=== PATIENT | female | born 1950 | race Caucasian/White ===

== ENCOUNTER → 2018-08-26 10:21 | Outpatient (CLI) | payer OTHER, SELFPAY ==
[2018-08-26 11:17] LABS: Add Manual Diff / Slide Review NO; Basophils Percent Auto 0.7 % (0-2); Hematocrit 38.8 % (36-46); Hemoglobin 13.2 g/dL (12.0-16.0); Lymphocytes Percent Auto 25.4 % (25-40); Mean Corpuscular HGB Conc 34.1 % (30-36); Mean Corpuscular Hemoglobin 28.7 PG (26-34); Mean Corpuscular Volume 84.3 fL (80-100); Monocytes Percent Auto 5.9 % (3-14); Neutrophils Absolute Auto 5400 /uL (3000-5900); Platelet Count 261 X10^3/uL (150-400); Red Cell Distribution Width 13.7 % (11.6-14.8); White Blood Cell Count 8.3 X10^3/uL (4.5-11.0)
[2018-08-26 11:25] LABS: Hemoglobin A1C% w Est Avg Glu 9.8 % (4.0-6.0)
[2018-08-26 11:42] LABS: Creatinine Urine Random 191.5 mg/dL
[2018-08-26 11:46] LABS: Alanine Aminotransferase 31 IU/L (9-52); Albumin 4.1 g/dL (3.5-5.0); Albumin Globulin Ratio 1.2 (1.0-2.8); Alkaline Phosphatase 56 U/L (38-126); Aspartate Aminotransferase 22 IU/L (14-36); BUN Creatinine Ratio 22.5 (6-22); Bilirubin Total 0.4 mg/dL (0.2-1.3); Blood Urea Nitrogen 18 mg/dL (7-17); Calcium 9.3 mg/dL (8.4-10.2); Carbon Dioxide 29 mmol/L (22-32); Chloride 104 mmol/L (98-107); Cholesterol 180 mg/dL (140-199); Estimated Glomerular Filt Rate > 60.0 mL/min (>60); Globulin 3.4 g/dL (1.7-4.1); Glucose 206 mg/dL (80-110); HDL Cholesterol 44 mg/dL (40-60); HEMOLYSIS < 15 (0-50); LDL Cholesterol Calculated 112 mg/dL (<100); Potassium 5.1 mmol/L (3.4-5.1); Sodium 142 mmol/L (137-145); Total Protein 7.5 g/dL (6.3-8.2); Triglycerides 119 mg/dL (35-150)
[2018-08-26 11:48] LABS: Microalbumi Creatinin Ratio Ur 23.4 ug/mg CR (<30); Microalbumin Urine Random 4.5 mg/dL (0-1.6)
[2018-08-26 12:14] LABS: Thyroid Stimulating Hormone 1.46 uIU/mL (0.47-4.68)
== END ==
PROVIDERS: Family Provider Family Medicine; PCP Family Medicine; Visit Provider Family Medicine
DX: E10.9 Type 1 diabetes mellitus without complications (principal); E78.5 Hyperlipidemia, unspecified; I10 Essential (primary) hypertension
CPT/HCPCS: 36415; 80053; 80061; 82043; 82570; 83036; 84443; 85025

== ENCOUNTER → 2018-08-29 09:50 | Outpatient (CLI) | payer OTHER, MEDICARE, SELFPAY ==
--- NOTE | 2018-08-29 09:51 | DI.MG.S_ITS ---
BILATERAL DIGITAL SCREENING MAMMOGRAM 3D/2D WITH CAD: 08/29/2018 CLINICAL: Routine screening. Family history of breast cancer. Comparison is made to exams dated: 05/21/2017 mammogram, 05/18/2015 mammogram, and 11/30/2014 mammogram - [facility]. There are scattered fibroglandular elements in both breasts. Current study was also evaluated with a Computer Aided Detection (CAD) system. There are a grouped calcifications in the left breast at 2 o'clock middle depth. No other significant masses, calcifications, or other findings are seen in either breast. IMPRESSION: INCOMPLETE: NEEDS ADDITIONAL IMAGING EVALUATION The grouped calcifications in the left breast are indeterminate. Spot magnification views are recommended. This exam was interpreted at Station ID: [id number]. NOTE: For mammograms, a report in lay terms will be sent to the patient. Approximately 15% of breast malignancies will not be visualized mammographically. In the management of a palpable breast mass, a negative mammogram must not discourage biopsy of a clinically suspicious lesion. Electronically Signed By: Eileen gongora/trixie:08/29/2018 13:14:50 letter sent: Additional Imaging Needed ACR BI-RADS Category 0: Incomplete 3340F
== END ==
PROVIDERS: Family Provider Family Medicine; PCP Family Medicine; Visit Provider Family Medicine
DX: Z12.31 Encounter for screening mammogram for malignant neoplasm of breast (principal); Z80.3 Family history of malignant neoplasm of breast; E11.9 Type 2 diabetes mellitus without complications
CPT/HCPCS: 77063; 77067

== ENCOUNTER 2018-09-14 11:50 | Emergency (ER) | payer OTHER, SELFPAY ==
[2018-09-14 12:03] VITALS: BP 196/99; PULSE 86; RESP 18; TEMP 36.6; O2SAT 96
--- NOTE | 2018-09-14 12:06 | ED.CHESTPAIN ---
HPI - Chest Pain General Chief Complaint: Chest Pain Stated Complaint: CHEST PAIN Time Seen by Provider: 09/14/18 12:06 Source: patient and family () Mode of arrival: ambulatory Limitations: no limitations History of Present Illness HPI narrative: This is a 68-year-old female who comes to the emergency department with complaint of chest pain. Patient states chest pain started 3 days ago. Patient states it has been constant since some. She came in because it is not improving. She has not been sweaty today, she has been having some shortness of breath with exertion. No nausea or vomiting. No other GI or urinary symptoms. Patient does have a history of hypertension and ngi-sorkuiy-koijmpifz diabetes. Patient takes, metformin and glyburide. She is not on any blood thinner she does not normally take an aspirin. She has not had any aspirin today. She does not have any known coronary artery disease and has not had prior catheterization or stress test. Related Data Previous Rx's Medication Instructions Recorded fluconazole [Diflucan] 150 mg PO QDAY #1 tab 07/04/16 metoprolol tartrate 25 mg PO BID #180 tab 07/10/17 triamcinolone acetonide 0.1 % 1 applictn TOPICAL BID #80 gram 07/08/18 topical cream atenolol 25 mg PO BID #180 tab 07/09/18 glimepiride 1 mg tablet 3 mg PO [facility] #270 tab 08/27/18 metformin 500 mg tablet 1,000 mg PO BID #360 tab 08/27/18 simvastatin 5 mg tablet 5 mg PO BEDTIME #90 tab 08/27/18 Allergies Allergy/AdvReac Type Severity Reaction Status Date / Time Sulfa (Sulfonamide Allergy Mild RASH Unverified 08/27/18 09:03 Antibiotics) Review of Systems Review of Systems All systems reviewed & are unremarkable except as noted in HPI and below Cardiovascular Reports chest pain, Reports chest pain at rest, Denies diaphoresis, Denies syncope and Reports dyspnea Respiratory Denies cough and Reports dyspnea Gastrointestinal Gastrointestinal: Denies abdominal pain, Denies nausea and Denies vomiting Genitourinary Denies difficulty voiding Neurologic Denies syncope [facility] Medical History Diabetes mellitus (Chronic ~2011) Hypertension (Chronic ~2011) Knee osteoarthritis (Chronic) Osteopenia (Chronic 08/06/14) Rheumatoid arthritis (Chronic) Colon polyps (Resolved 08/31/14) Surgical History Anesthesia (Resolved) History of colonoscopy with polypectomy (Resolved 08/31/14) History of knee replacement (Resolved) History of knee replacement (Resolved) History of left cataract surgery (Resolved 03/23/15) History of right cataract surgery (Resolved 04/06/15) Status post delivery (Resolved 12/21/78) Family History Brother Drowning Father Heart disease Mother Diabetes mellitus Sister Bone cancer Sister Bone cancer Social History Smoking Status: Never smoker Exam Initial Vital Signs Initial Vital Signs: Vital Signs Temperature 97.9 F 09/14/18 12:03 Pulse Rate 86 09/14/18 12:03 Respiratory Rate 18 09/14/18 12:03 Blood Pressure 196/99 H 09/14/18 12:03 Pulse Oximetry 96 09/14/18 12:03 GENERAL: Alert and oriented x three, obese, well-appearing female in mild distress. Patient is not diaphoretic. HEENT: Head normocephalic, atraumatic, EOMI, pupils reactive, face symmetric, moist mucous membranes NECK: Supple, full range of motion CARDIOVASCULAR: Regular rate and rhythm without murmurs, rubs or gallops. RESPIRATORY: Breath sounds equal bilaterally, no wheezes rales or rhonchi. ABDOMEN: Soft, nontender. Normoactive bowel sounds all 4 quadrants. No guarding or rebound, rigidity, no mass, no bruit or pulsatile mass. : No CVA tenderness EXTREMITIES: Normal range of motion, no clubbing or edema. 2+ pulses lower extremities. Neurovascularly intact NEUROLOGICAL: Cranial nerves II through XII grossly intact. Moving all extremities SKIN: Warm, dry, no petechiae, no rashes or lesions. Course Orders Ordered: ED Orders 09/14/18 12:00 EKG-12 Lead Stat 09/14/18 12:10 Complete Blood Count AUTO DIFF Stat Comprehensive Metabolic Panel Stat Lipase Stat Troponin & CK Cardiac Panel Stat Discontinued Medications Aspirin (Aspirin Chew) 324 mg PO NOW ONE Stop: 09/14/18 12:07 Last Admin: 09/14/18 12:11 Dose: 324 mg Heparin Sodium (Porcine) (Heparin) 5,000 unit IV NOW ONE Stop: 09/14/18 12:11 Last Admin: 09/14/18 12:12 Dose: 5,000 unit Sodium Chloride (Normal Saline 0.9%) 1,000 mls @ 150 mls/hr IV CONT RENY Morphine Sulfate (Morphine) 4 mg IV NOW ONE Stop: 09/14/18 12:24 Last Admin: 09/14/18 12:24 Dose: 4 mg Nitroglycerin (Nitrostat) 0.4 mg SL [id number] PRN PRN Reason: Chest Pain Last Admin: 09/14/18 12:12 Dose: 0.4 mg Vital Signs - 8 hr 09/14/18 12:03 09/14/18 12:10 09/14/18 12:25 Temperature 97.9 F Pulse Rate 86 90 Respiratory Rate 18 18 Blood Pressure [Left Arm] 196/99 H 164/84 H 155/91 H Pulse Oximetry 96 97 MDM - Chest Pain Lab Data Attestation: I reviewed the patient's lab results. Result diagrams: 09/14/18 12:10 09/14/18 12:10 Lab Results 09/14/18 09/14/18 Range/Units 12:10 12:10 WBC 16.8 H (4.5-11.0) X10^3/uL RBC 5.03 (4.0-5.2) X10^6/uL Hgb 14.6 (12.0-16.0) g/dL Hct 42.1 (36-46) % MCV 83.7 (80-100) fL MCH 29.0 (26-34) PG MCHC 34.7 (30-36) % RDW 14.1 (11.6-14.8) % Plt Count 333 (150-400) X10^3/uL Neut % (Auto) 81.3 H (50-75) % Lymph % (Auto) 10.7 L (25-40) % [place] % (Auto) 6.3 (3-14) % Eos % (Auto) 0.5 L (2-4) % Baso % (Auto) 1.2 (0-2) % Neut # (Auto) 34980 H (4188-6010) /uL Sodium 139 (137-145) mmol/L Potassium 4.3 (3.4-5.1) mmol/L Chloride 99 (98-107) mmol/L Carbon Dioxide 26 (22-32) mmol/L BUN 12 (7-17) mg/dL Creatinine 0.70 (0.52-1.04) mg/dL Estimated GFR > 60.0 (>60) mL/min BUN/Creatinine Ratio 17.1 (6-22) Glucose 285 H (80-110) mg/dL Calcium 10.0 (8.4-10.2) mg/dL Total Bilirubin 0.9 (0.2-1.3) mg/dL AST 57 H (14-36) IU/L ALT 33 (9-52) IU/L Alkaline Phosphatase 75 (38-126) U/L Total Creatine Kinase 308 H (30-135) U/L CK-MB (CK-2) 21.50 H (<2.37) ng/mL CK-MB (CK-2) Rel Index 7.0 H* (1.5-5.0) % Troponin I 6.140 H* (0.01-0.034) ng/mL Total Protein 8.5 H (6.3-8.2) g/dL Albumin 4.6 (3.5-5.0) g/dL Globulin 3.9 (1.7-4.1) g/dL Albumin/Globulin Ratio 1.2 (1.0-2.8) Lipase 65 (23-300) U/L ECG Data Attestation: I personally reviewed and interpreted this ECG as follows: Interpretation: Sinus rhythm rate of 85 FL 159 QRS 99 QTC of 400. Patient has ST elevation in anterolateral leads V2 3 4 in 5 with 2-3 mm. Patient also has some inversion in aVL more flattening in 1. Patient has about 1 mm in 3 and AVF. No prior EKG's. MDM Narrative Medical decision making narrative: Patient EKG was reviewed and patient was evaluated. Activated as ST elevated DC. Transfer to [facility] spoke with Dr. Stapleton who accepts the patient for transfer. EKG was sent head of the patient. Patient was given aspirin 324 mg, heparin bolus 5000 units, nitro sublingual which did not help her chest pain and did give her headache. Her blood pressure is quite elevated. CXR not obtained prior to transport. Lab results faxed to [facility] after transportation. Critical Care Time Critical Care Time: Yes Total Critical Care Time: 30 Attestation: The high probability of a clinically significant, sudden or life threatening deterioration of the cardiac system(s) required my full and direct attention, intervention and personal management. The aggregate critical care time was minutes. This time is in addition to time spent performing reported procedures but includes the following: xData Review and interpretation x Patient assessment and monitoring of vital signs x Documentation x Medication orders and management Discharge Plan Departure Patient Disposition: [facility] Clinical Impression: ST elevation (STEMI) myocardial infarction Discharge Date/Time: 09/14/18 12:30 Interventions: ED Discharge Assessment Last Done: 09/14/18 12:36 Prescriptions: No Action fluconazole [Diflucan] 150 MG tablet 150 mg PO QDAY Qty: 1 RF: 0 metoprolol tartrate 25 MG tablet 25 mg PO BID Qty: 180 RF: 3 triamcinolone acetonide 0.1 % cream 1 applictn Topical BID Qty: 80 RF: 2 atenolol 25 mg tablet 25 mg PO BID Qty: 180 RF: 2 glimepiride [Amaryl] 1 mg tablet 3 mg PO [facility] Qty: 270 RF: 3 metformin [Glucophage] 500 mg tablet 1,000 mg PO BID Qty: 360 RF: 3 simvastatin 5 mg tablet 5 mg PO BEDTIME Qty: 90 RF: 3 Referrals: Todd West MD [Primary Care Provider] -
[2018-09-14 12:10] VITALS: BP 164/84; PULSE 90; RESP 18; O2SAT 97
[2018-09-14] MEDS: ASPIRIN 81 MG TAB 324 MG PO (12:11)
[2018-09-14] MEDS: NITROGLYCERIN 0.4 MG SL TAB SL (12:12)
[2018-09-14] MEDS: HEPARIN 5,000 UNIT/ML VIAL 5000 UNIT IV (12:12)
--- NOTE | 2018-09-14 12:16 | PC.NURSE ---
sinus rhythm with st elevations
--- NOTE | 2018-09-14 12:18 | ED_ITS ---
HPI - Chest Pain General Chief Complaint: Chest Pain Stated Complaint: CHEST PAIN Time Seen by Provider: 09/14/18 12:06 Source: patient and family () Mode of arrival: ambulatory Limitations: no limitations History of Present Illness HPI narrative: This is a 68-year-old female who comes to the emergency department with complaint of chest pain. Patient states chest pain started 3 days ago. Patient states it has been constant since some. She came in because it is not improving. She has not been sweaty today, she has been having some shortness of breath with exertion. No nausea or vomiting. No other GI or urinary symptoms. Patient does have a history of hypertension and non-insulin- dependent diabetes. Patient takes, metformin and glyburide. She is not on any blood thinner she does not normally take an aspirin. She has not had any aspirin today. She does not have any known coronary artery disease and has not had prior catheterization or stress test. Related Data Previous Rx's Medication Instructions Recorded fluconazole [Diflucan] 150 mg PO QDAY #1 tab 07/04/16 metoprolol tartrate 25 mg PO BID #180 tab 07/10/17 triamcinolone acetonide 0.1 % 1 applictn TOPICAL BID #80 gram 07/08/18 topical cream atenolol 25 mg PO BID #180 tab 07/09/18 glimepiride 1 mg tablet 3 mg PO [facility] #270 tab 08/27/18 metformin 500 mg tablet 1,000 mg PO BID #360 tab 08/27/18 simvastatin 5 mg tablet 5 mg PO BEDTIME #90 tab 08/27/18 Allergies Allergy/AdvReac Type Severity Reaction Status Date / Time Sulfa (Sulfonamide Allergy Mild RASH Unverified 08/27/18 09:03 Antibiotics) Review of Systems Review of Systems All systems reviewed & are unremarkable except as noted in HPI and below Cardiovascular Reports chest pain, Reports chest pain at rest, Denies diaphoresis, Denies syncope and Reports dyspnea Respiratory Denies cough and Reports dyspnea Gastrointestinal Gastrointestinal: Denies abdominal pain, Denies nausea and Denies vomiting Genitourinary Denies difficulty voiding Neurologic Denies syncope [facility] Medical History Diabetes mellitus (Chronic ~2011) Hypertension (Chronic ~2011) Knee osteoarthritis (Chronic) Osteopenia (Chronic 08/06/14) Rheumatoid arthritis (Chronic) Colon polyps (Resolved 08/31/14) Surgical History Anesthesia (Resolved) History of colonoscopy with polypectomy (Resolved 08/31/14) History of knee replacement (Resolved) History of knee replacement (Resolved) History of left cataract surgery (Resolved 03/23/15) History of right cataract surgery (Resolved 04/06/15) Status post delivery (Resolved 12/21/78) Family History Brother Drowning Father Heart disease Mother Diabetes mellitus Sister Bone cancer Sister Bone cancer Social History Smoking Status: Never smoker Exam Initial Vital Signs Initial Vital Signs: Vital Signs Temperature 97.9 F 09/14/18 12:03 Pulse Rate 86 09/14/18 12:03 Respiratory Rate 18 09/14/18 12:03 Blood Pressure 196/99 H 09/14/18 12:03 Pulse Oximetry 96 09/14/18 12:03 GENERAL: Alert and oriented x three, obese, well-appearing female in mild distress. Patient is not diaphoretic. HEENT: Head normocephalic, atraumatic, EOMI, pupils reactive, face symmetric, moist mucous membranes NECK: Supple, full range of motion CARDIOVASCULAR: Regular rate and rhythm without murmurs, rubs or gallops. RESPIRATORY: Breath sounds equal bilaterally, no wheezes rales or rhonchi. ABDOMEN: Soft, nontender. Normoactive bowel sounds all 4 quadrants. No guarding or rebound, rigidity, no mass, no bruit or pulsatile mass. : No CVA tenderness EXTREMITIES: Normal range of motion, no clubbing or edema. 2+ pulses lower extremities. Neurovascularly intact NEUROLOGICAL: Cranial nerves II through XII grossly intact. Moving all extremities SKIN: Warm, dry, no petechiae, no rashes or lesions. Course Orders Ordered: ED Orders 09/14/18 12:00 EKG-12 Lead Stat 09/14/18 12:10 Complete Blood Count AUTO DIFF Stat Comprehensive Metabolic Panel Stat Lipase Stat Troponin & CK Cardiac Panel Stat Discontinued Medications Aspirin (Aspirin Chew) 324 mg PO NOW ONE Stop: 09/14/18 12:07 Last Admin: 09/14/18 12:11 Dose: 324 mg Heparin Sodium (Porcine) (Heparin) 5,000 unit IV NOW ONE Stop: 09/14/18 12:11 Last Admin: 09/14/18 12:12 Dose: 5,000 unit Sodium Chloride (Normal Saline 0.9%) 1,000 mls @ 150 mls/hr IV CONT RENY Morphine Sulfate (Morphine) 4 mg IV NOW ONE Stop: 09/14/18 12:24 Last Admin: 09/14/18 12:24 Dose: 4 mg Nitroglycerin (Nitrostat) 0.4 mg SL [id number] PRN PRN Reason: Chest Pain Last Admin: 09/14/18 12:12 Dose: 0.4 mg Vital Signs - 8 hr 09/14/18 12:03 09/14/18 12:10 09/14/18 12:25 Temperature 97.9 F Pulse Rate 86 90 Respiratory Rate 18 18 Blood Pressure [Left Arm] 196/99 H 164/84 H 155/91 H Pulse Oximetry 96 97 MDM - Chest Pain Lab Data Attestation: I reviewed the patient's lab results. Result diagrams: 09/14/18 12:10 09/14/18 12:10 Lab Results 09/14/18 09/14/18 Range/Units 12:10 12:10 WBC 16.8 H (4.5-11.0) X10^3/uL RBC 5.03 (4.0-5.2) X10^6/uL Hgb 14.6 (12.0-16.0) g/dL Hct 42.1 (36-46) % MCV 83.7 (80-100) fL MCH 29.0 (26-34) PG MCHC 34.7 (30-36) % RDW 14.1 (11.6-14.8) % Plt Count 333 (150-400) X10^3/uL Neut % (Auto) 81.3 H (50-75) % Lymph % (Auto) 10.7 L (25-40) % [place] % (Auto) 6.3 (3-14) % Eos % (Auto) 0.5 L (2-4) % Baso % (Auto) 1.2 (0-2) % Neut # (Auto) 21033 H (4393-4586) /uL Sodium 139 (137-145) mmol/L Potassium 4.3 (3.4-5.1) mmol/L Chloride 99 (98-107) mmol/L Carbon Dioxide 26 (22-32) mmol/L BUN 12 (7-17) mg/dL Creatinine 0.70 (0.52-1.04) mg/dL Estimated GFR > 60.0 (>60) mL/min BUN/Creatinine Ratio 17.1 (6-22) Glucose 285 H (80-110) mg/dL Calcium 10.0 (8.4-10.2) mg/dL Total Bilirubin 0.9 (0.2-1.3) mg/dL AST 57 H (14-36) IU/L ALT 33 (9-52) IU/L Alkaline Phosphatase 75 (38-126) U/L Total Creatine Kinase 308 H (30-135) U/L CK-MB (CK-2) 21.50 H (<2.37) ng/mL CK-MB (CK-2) Rel Index 7.0 H* (1.5-5.0) % Troponin I 6.140 H* (0.01-0.034) ng/mL Total Protein 8.5 H (6.3-8.2) g/dL Albumin 4.6 (3.5-5.0) g/dL Globulin 3.9 (1.7-4.1) g/dL Albumin/Globulin Ratio 1.2 (1.0-2.8) Lipase 65 (23-300) U/L ECG Data Attestation: I personally reviewed and interpreted this ECG as follows: Interpretation: Sinus rhythm rate of 85 NE 159 QRS 99 QTC of 400. Patient has ST elevation in anterolateral leads V2 3 4 in 5 with 2-3 mm. Patient also has some inversion in aVL more flattening in 1. Patient has about 1 mm in 3 and AVF. No prior EKG's. MDM Narrative Medical decision making narrative: Patient EKG was reviewed and patient was evaluated. Activated as ST elevated CT. Transfer to [facility] spoke with Dr. Stapleton who accepts the patient for transfer. EKG was sent head of the patient. Patient was given aspirin 324 mg, heparin bolus 5000 units, nitro sublingual which did not help her chest pain and did give her headache. Her blood pressure is quite elevated. CXR not obtained prior to transport. Lab results faxed to [facility] after transportation. Critical Care Time Critical Care Time: Yes Total Critical Care Time: 30 Attestation: The high probability of a clinically significant, sudden or life threatening deterioration of the cardiac system(s) required my full and direct attention, intervention and personal management. The aggregate critical care time was minutes. This time is in addition to time spent performing reported procedures but includes the following: xData Review and interpretation x Patient assessment and monitoring of vital signs x Documentation x Medication orders and management Discharge Plan Departure Patient Disposition: [facility] Clinical Impression: ST elevation (STEMI) myocardial infarction Discharge Date/Time: 09/14/18 12:30 Interventions: ED Discharge Assessment Last Done: 09/14/18 12:36 Prescriptions: No Action fluconazole [Diflucan] 150 MG tablet 150 mg PO QDAY Qty: 1 RF: 0 metoprolol tartrate 25 MG tablet 25 mg PO BID Qty: 180 RF: 3 triamcinolone acetonide 0.1 % cream 1 applictn Topical BID Qty: 80 RF: 2 atenolol 25 mg tablet 25 mg PO BID Qty: 180 RF: 2 glimepiride [Amaryl] 1 mg tablet 3 mg PO [facility] Qty: 270 RF: 3 metformin [Glucophage] 500 mg tablet 1,000 mg PO BID Qty: 360 RF: 3 simvastatin 5 mg tablet 5 mg PO BEDTIME Qty: 90 RF: 3 Referrals: Todd West MD [Primary Care Provider] -
[2018-09-14 12:22] LABS: Add Manual Diff / Slide Review NO; Basophils Percent Auto 1.2 % (0-2); Eosinophils Percent Auto 0.5 % (2-4); Hematocrit 42.1 % (36-46); Hemoglobin 14.6 g/dL (12.0-16.0); Lymphocytes Percent Auto 10.7 % (25-40); Mean Corpuscular HGB Conc 34.7 % (30-36); Mean Corpuscular Volume 83.7 fL (80-100); Monocytes Percent Auto 6.3 % (3-14); Neutrophils Absolute Auto 13600 /uL (3000-5900); Neutrophils Percent Auto 81.3 % (50-75); Platelet Count 333 X10^3/uL (150-400); Red Blood Cell Count 5.03 X10^6/uL (4.0-5.2); Red Cell Distribution Width 14.1 % (11.6-14.8); White Blood Cell Count 16.8 X10^3/uL (4.5-11.0)
[2018-09-14] MEDS: MORPHINE 4 MG/ML INJ IV (12:24)
[2018-09-14 12:25] VITALS: BP 155/91
[2018-09-14 12:33] LABS: Alanine Aminotransferase 33 IU/L (9-52); Albumin 4.6 g/dL (3.5-5.0); Albumin Globulin Ratio 1.2 (1.0-2.8); Alkaline Phosphatase 75 U/L (38-126); Aspartate Aminotransferase 57 IU/L (14-36); BUN Creatinine Ratio 17.1 (6-22); Bilirubin Total 0.9 mg/dL (0.2-1.3); Blood Urea Nitrogen 12 mg/dL (7-17); Carbon Dioxide 26 mmol/L (22-32); Chloride 99 mmol/L (98-107); Creatine Kinase 308 U/L (30-135); Estimated Glomerular Filt Rate > 60.0 mL/min (>60); Globulin 3.9 g/dL (1.7-4.1); Glucose 285 mg/dL (80-110); HEMOLYSIS < 15 (0-50); Lipase 65 U/L (23-300); Potassium 4.3 mmol/L (3.4-5.1); Sodium 139 mmol/L (137-145); Total Protein 8.5 g/dL (6.3-8.2)
--- NOTE | 2018-09-14 12:39 | PC.NURSE ---
spouse at bedside/ will drive to [facility], states knows where it is/ no map needed/ he has her shirt
== END 2018-09-14 12:30 | disposition short-term general hospital (02) ==
PROVIDERS: Emergency Provider Emergency Medicine; Family Provider Family Medicine; PCP Family Medicine
DX: I21.3 ST elevation (STEMI) myocardial infarction of unspecified site (principal)
CPT/HCPCS: 36591; 80053; 82550; 82553; 83690; 84484; 85025; 93005; 93041; 96374; 96375; 99283; 99285; 99291; J1644; J2270

== ENCOUNTER → 2018-11-15 10:12 | Outpatient (CLI) | payer OTHER, SELFPAY ==
--- NOTE | 2018-11-15 10:19 | DI.MG.S_ITS ---
UNILATERAL LEFT DIGITAL DIAGNOSTIC MAMMOGRAM 3D/2D WITH ADDITIONAL VIEWS: 11/15/2018 CLINICAL: Additional evaluation requested from prior study. Family history of breast cancer. Comparison is made to exams dated: 08/29/2018 mammogram, 05/21/2017 mammogram, and 05/18/2015 mammogram - [facility]. There are scattered fibroglandular elements in left breast. There are a grouped segmental fine pleomorphic calcifications in the left breast at 2 o'clock middle depth. No other significant masses or calcifications are seen in the breast. IMPRESSION: SUSPICIOUS OF MALIGNANCY The grouped segmental fine pleomorphic calcifications in the left breast are at a moderate suspicion for malignancy. A stereotactic biopsy is recommended. The findings were discussed with the patient at the conclusion of the study by Dr. Silver. This exam was interpreted at Station ID: [id number]. NOTE: For mammograms, a report in lay terms will be sent to the patient. Approximately 15% of breast malignancies will not be visualized mammographically. In the management of a palpable breast mass, a negative mammogram must not discourage biopsy of a clinically suspicious lesion. Electronically Signed By: Jose koroma/:11/15/2018 11:20:31 letter sent: Biopsy Required ACR BI-RADS Category 4c: Suspicious abnormality - moderate concern but not classic for malignancy 3344F
[2018-11-15 12:25] LABS: Add Manual Diff / Slide Review NO; Basophils Absolute Auto 100 /uL (0-100); Basophils Percent Auto 1.2 % (0-2); Eosinophils Absolute Auto 300 /uL (0-450); Eosinophils Percent Auto 4.1 % (2-4); Hematocrit 39.2 % (36-46); Hemoglobin 13.1 g/dL (12.0-16.0); Lymphocytes Absolute Auto 1600 /uL (1100-4500); Lymphocytes Percent Auto 23.5 % (25-40); Mean Corpuscular HGB Conc 33.5 % (30-36); Mean Corpuscular Hemoglobin 28.4 PG (26-34); Mean Corpuscular Volume 84.9 fL (80-100); Monocytes Absolute Auto 500 /uL (0-900); Monocytes Percent Auto 6.8 % (3-14); Neutrophils Absolute Auto 4400 /uL (1500-7000); Neutrophils Percent Auto 64.4 % (50-75); Platelet Count 319 X10^3/uL (150-400); Red Blood Cell Count 4.62 X10^6/uL (4.0-5.2); White Blood Cell Count 6.8 X10^3/uL (4.5-11.0)
[2018-11-15 13:55] LABS: Hemoglobin A1C% w Est Avg Glu 7.2 % (4.0-6.0)
[2018-11-15 14:06] LABS: Alanine Aminotransferase 27 IU/L (9-52); Albumin 4.2 g/dL (3.5-5.0); Albumin Globulin Ratio 1.2 (1.0-2.8); Alkaline Phosphatase 69 U/L (38-126); Aspartate Aminotransferase 19 IU/L (14-36); BUN Creatinine Ratio 24.4 (6-22); Bilirubin Total 0.4 mg/dL (0.2-1.3); Blood Urea Nitrogen 22 mg/dL (7-17); Calcium 9.6 mg/dL (8.4-10.2); Carbon Dioxide 27 mmol/L (22-32); Chloride 98 mmol/L (98-107); Cholesterol 133 mg/dL (140-199); Estimated Glomerular Filt Rate > 60.0 mL/min (>60); Globulin 3.4 g/dL (1.7-4.1); Glucose 187 mg/dL (80-110); HDL Cholesterol 49 mg/dL (40-60); HEMOLYSIS < 15 (0-50); LDL Cholesterol Calculated 65 mg/dL (<100); Potassium 4.7 mmol/L (3.4-5.1); Sodium 137 mmol/L (137-145); Total Protein 7.6 g/dL (6.3-8.2); Triglycerides 95 mg/dL (35-150)
== END ==
PROVIDERS: PCP Family Medicine; Visit Provider Family Medicine
DX: R92.1 Mammographic calcification found on diagnostic imaging of breast (principal); Z80.3 Family history of malignant neoplasm of breast; E11.9 Type 2 diabetes mellitus without complications
CPT/HCPCS: 36415; 77065; 80053; 80061; 83036; 85025; G0279

== ENCOUNTER → 2019-01-01 12:05 | Outpatient (CLI) | payer OTHER, SELFPAY ==
[2019-01-01 12:47] LABS: BUN Creatinine Ratio 17.8 (6-22); Blood Urea Nitrogen 16 mg/dL (7-17); Calcium 9.6 mg/dL (8.4-10.2); Carbon Dioxide 30 mmol/L (22-32); Chloride 99 mmol/L (98-107); Estimated Glomerular Filt Rate > 60.0 mL/min (>60); Glucose 190 mg/dL (80-110); HEMOLYSIS < 15 (0-50); Sodium 138 mmol/L (137-145)
[2019-01-01 12:49] LABS: Potassium 5.6 mmol/L (3.4-5.1)
== END ==
PROVIDERS: PCP Family Medicine; Visit Provider Family Medicine
DX: E11.9 Type 2 diabetes mellitus without complications (principal)
CPT/HCPCS: 36415; 80048; 83036

== ENCOUNTER → 2019-02-14 10:49 | Outpatient (CLI) | payer OTHER, SELFPAY ==
[2019-02-14 11:45] LABS: Hemoglobin A1C% w Est Avg Glu 7.8 % (4.0-6.0)
[2019-02-14 12:55] LABS: BUN Creatinine Ratio 22.2 (6-22); Blood Urea Nitrogen 20 mg/dL (7-17); Calcium 9.7 mg/dL (8.4-10.2); Carbon Dioxide 32 mmol/L (22-32); Chloride 98 mmol/L (98-107); Estimated Glomerular Filt Rate > 60.0 mL/min (>60); Glucose 163 mg/dL (80-110); HEMOLYSIS < 15 (0-50); Sodium 139 mmol/L (137-145)
[2019-02-14 12:58] LABS: Potassium 5.4 mmol/L (3.4-5.1)
== END ==
PROVIDERS: PCP Family Medicine; Visit Provider Internal Medicine Cardiovascular Disease
DX: I10 Essential (primary) hypertension (principal); E11.9 Type 2 diabetes mellitus without complications
CPT/HCPCS: 36415; 80048; 83036

== ENCOUNTER → 2019-02-27 11:48 | Outpatient (CLI) | payer OTHER, SELFPAY ==
[2019-02-27 13:13] LABS: BUN Creatinine Ratio 21.1 (6-22); Blood Urea Nitrogen 19 mg/dL (7-17); Calcium 9.2 mg/dL (8.4-10.2); Carbon Dioxide 29 mmol/L (22-32); Chloride 99 mmol/L (98-107); Estimated Glomerular Filt Rate > 60.0 mL/min (>60); Glucose 108 mg/dL (80-110); HEMOLYSIS < 15 (0-50); Potassium 4.1 mmol/L (3.4-5.1); Sodium 138 mmol/L (137-145)
== END ==
PROVIDERS: PCP Family Medicine; Visit Provider Internal Medicine Cardiovascular Disease
DX: I10 Essential (primary) hypertension (principal)
CPT/HCPCS: 36415; 80048

== ENCOUNTER → 2019-05-05 11:27 | Outpatient (CLI) | payer OTHER, SELFPAY ==
[2019-05-05 12:41] LABS: Add Manual Diff / Slide Review NO; Basophils Absolute Auto 100 /uL (0-100); Basophils Percent Auto 0.7 % (0-2); Eosinophils Absolute Auto 200 /uL (0-450); Eosinophils Percent Auto 2.1 % (2-4); Hemoglobin 12.3 g/dL (12.0-16.0); Lymphocytes Absolute Auto 2100 /uL (1100-4500); Lymphocytes Percent Auto 20.1 % (25-40); Mean Corpuscular HGB Conc 34.1 % (30-36); Mean Corpuscular Hemoglobin 28.7 PG (26-34); Mean Corpuscular Volume 84.1 fL (80-100); Monocytes Absolute Auto 800 /uL (0-900); Monocytes Percent Auto 7.1 % (3-14); Neutrophils Absolute Auto 7400 /uL (1500-7000); Platelet Count 309 X10^3/uL (150-400); Red Blood Cell Count 4.28 X10^6/uL (4.0-5.2); Red Cell Distribution Width 13.8 % (11.6-14.8); White Blood Cell Count 10.6 X10^3/uL (4.5-11.0)
[2019-05-05 12:47] LABS: Hemoglobin A1C% w Est Avg Glu 6.3 % (4.0-6.0)
[2019-05-05 13:11] LABS: Alanine Aminotransferase 19 IU/L (9-52); Albumin 3.8 g/dL (3.5-5.0); Albumin Globulin Ratio 1.2 (1.0-2.8); Alkaline Phosphatase 68 U/L (38-126); Aspartate Aminotransferase 15 IU/L (14-36); BUN Creatinine Ratio 18.8 (6-22); Bilirubin Total 0.5 mg/dL (0.2-1.3); Blood Urea Nitrogen 15 mg/dL (7-17); Carbon Dioxide 27 mmol/L (22-32); Chloride 103 mmol/L (98-107); Cholesterol 101 mg/dL (140-199); Estimated Glomerular Filt Rate > 60.0 mL/min (>60); Globulin 3.3 g/dL (1.7-4.1); Glucose 121 mg/dL (80-110); HDL Cholesterol 38 mg/dL (40-60); HEMOLYSIS < 15 (0-50); LDL Cholesterol Calculated 43 mg/dL (<100); Potassium 4.1 mmol/L (3.4-5.1); Sodium 137 mmol/L (137-145); Total Protein 7.1 g/dL (6.3-8.2); Triglycerides 101 mg/dL (35-150)
[2019-05-05 13:38] LABS: Thyroid Stimulating Hormone 1.76 uIU/mL (0.47-4.68)
[2019-05-05 16:47] LABS: Creatinine Urine Random 107.1 mg/dL
[2019-05-05 16:51] LABS: Microalbumi Creatinin Ratio Ur 23.3 ug/mg CR (<30); Microalbumin Urine Random 2.5 mg/dL (0-1.6)
== END ==
PROVIDERS: PCP Family Medicine; Visit Provider Family Medicine
DX: E78.2 Mixed hyperlipidemia (principal)
CPT/HCPCS: 36415; 80053; 80061; 82043; 82570; 83036; 84443; 85025

== ENCOUNTER → 2019-05-15 10:46 | Outpatient (CLI) | payer OTHER, SELFPAY ==
--- NOTE | 2019-05-15 10:48 | DI.MG.S_ITS ---
UNILATERAL LEFT DIGITAL DIAGNOSTIC MAMMOGRAM 3D/2D SHORT-TERM FOLLOW-UP: 05/15/2019 CLINICAL: Patient returns for a 6 month follow up of the left breast. Post biopsy. Comparison is made to exams dated: 12/05/2018 stereotactic biopsy - [facility], 11/15/2018 mammogram, 08/29/2018 mammogram, and 05/21/2017 mammogram - [facility]. There are scattered fibroglandular elements in left breast. There are stable grouped segmental fine pleomorphic calcifications in the left breast at 2 o'clock middle depth. These are seen in additional views. This correlates with the prior biopsy. There is a biopsy clip associated with the calcifications. No other significant masses or calcifications are seen in the breast. IMPRESSION: PROBABLY BENIGN The stable grouped segmental fine pleomorphic calcifications in the left breast are probably benign. Surgical consultation was preformed prior to todays follow-up exam. A follow-up mammogram in 6 months is recommended to demonstrate continued stability if surgical excision is not preformed. This exam was interpreted at Station ID: [id number]. NOTE: For mammograms, a report in lay terms will be sent to the patient. Approximately 15% of breast malignancies will not be visualized mammographically. In the management of a palpable breast mass, a negative mammogram must not discourage biopsy of a clinically suspicious lesion. CURRENT PENRAD IMPRESSIONS: The stable grouped segmental fine pleomorphic calcifications in the left breast are probably benign. A follow-up mammogram in 6 months is recommended. A follow-up mammogram in 6 months is recommended to demonstrate stability. This exam was interpreted at Station ID: [id number]. NOTE: For mammograms, a report in lay terms will be sent to the patient. Approximately 15% of breast malignancies will not be visualized mammographically. In the management of a palpable breast mass, a negative mammogram must not discourage biopsy of a clinically suspicious lesion. Electronically Signed By: Yon Snowden M.D. [facility] [place]/:05/15/2019 17:35:27 letter sent: Followup Recommended ACR BI-RADS Category 3: Probably benign 3343F
== END ==
PROVIDERS: PCP Family Medicine; Visit Provider Specialist
DX: R92.1 Mammographic calcification found on diagnostic imaging of breast (principal)
CPT/HCPCS: 77065; G0279

== ENCOUNTER → 2019-08-04 13:06 | Outpatient (CLI) | payer OTHER, MEDICARE, SELFPAY ==
[2019-08-04 13:52] LABS: Hemoglobin A1C% w Est Avg Glu 6.9 % (4.0-6.0)
[2019-08-04 13:57] LABS: BUN Creatinine Ratio 21.1 (6-22); Blood Urea Nitrogen 19 mg/dL (7-17); Calcium 9.5 mg/dL (8.4-10.2); Carbon Dioxide 29 mmol/L (22-32); Chloride 101 mmol/L (98-107); Estimated Glomerular Filt Rate > 60.0 mL/min (>60); Glucose 179 mg/dL (80-110); HEMOLYSIS < 15 (0-50); Potassium 4.6 mmol/L (3.4-5.1); Sodium 138 mmol/L (137-145)
== END ==
PROVIDERS: PCP Family Medicine; Visit Provider Family Medicine
DX: E11.9 Type 2 diabetes mellitus without complications (principal)
CPT/HCPCS: 36415; 80048; 83036

== ENCOUNTER → 2019-08-15 12:58 | Outpatient (CLI) | payer OTHER, SELFPAY | PROVIDERS: PCP Family Medicine; Visit Provider Family Medicine | DX: M85.852 Other specified disorders of bone density and structure, left thigh (principal); Z78.0 Asymptomatic menopausal state; E11.9 Type 2 diabetes mellitus without complications | CPT/HCPCS: 77080 ==

== ENCOUNTER → 2019-08-22 11:06 | Outpatient (CLI) | payer OTHER, SELFPAY ==
[2019-08-22 12:57] LABS: Hemoglobin A1C% w Est Avg Glu 7.3 % (4.0-6.0)
[2019-08-22 13:12] LABS: Blood Urea Nitrogen 23 mg/dL (7-17); Calcium 9.7 mg/dL (8.4-10.2); Carbon Dioxide 25 mmol/L (22-32); Chloride 98 mmol/L (98-107); Estimated Glomerular Filt Rate 55.3 mL/min (>60); Glucose 242 mg/dL (80-110); HEMOLYSIS < 15 (0-50); Potassium 4.2 mmol/L (3.4-5.1); Sodium 137 mmol/L (137-145)
[2019-08-22 13:42] LABS: Thyroid Stimulating Hormone 1.58 uIU/mL (0.47-4.68)
== END ==
PROVIDERS: Family Provider Family Medicine; PCP Family Medicine; Visit Provider Internal Medicine Cardiovascular Disease
DX: I10 Essential (primary) hypertension (principal); E11.9 Type 2 diabetes mellitus without complications
CPT/HCPCS: 36415; 80048; 83036; 84443

== ENCOUNTER 2019-09-24 15:36 | Emergency (ER) | payer OTHER, SELFPAY ==
[2019-09-24 15:43] VITALS: BP 140/69; PULSE 74; RESP 20; TEMP 36.6; O2SAT 95
--- NOTE | 2019-09-24 15:53 | DI.CT.S_ITS ---
PROCEDURE: CT HEAD/BRAIN WO CON INDICATIONS: syncope TECHNIQUE: Noncontrast 4.5 mm thick angled axial sections acquired from the foramen magnum to the vertex, with coronal and sagittal reformats. For radiation dose reduction, the following was used: automated exposure control, adjustment of mA and/or kV according to patient size. COMPARISON: None. FINDINGS: Image quality: Excellent. CSF spaces: Basal cisterns are patent. No extra-axial fluid collections. Ventricles are normal in size and shape. Brain: No midline shift. No intracranial masses or hemorrhage. Daily-white matter interface is normal. Skull and face: Calvarium and visualized facial bones are intact, without suspicious lesions. Sinuses: Visualized sinuses and mastoids are clear. IMPRESSION: There is mild microvascular atherosclerotic change in the deep white matter of each hemisphere, but no acute or subacute stroke is identified. Depending on the clinical status followup by MR scanning may be warranted. Dictated by: Narayan Silver M.D. on 09/24/2019 at 16:37 Approved by: Narayan Silver M.D. on 09/24/2019 at 16:38
--- NOTE | 2019-09-24 15:53 | DI.RAD.S_ITS ---
PROCEDURE: XR CHEST 1V INDICATIONS: syncope TECHNIQUE: One view of the chest was acquired. COMPARISON: [facility], , CHEST 2 VIEW, 06/12/2008, 13:16. FINDINGS: Surgical changes and devices: None. Lungs and pleura: Lungs are clear considering large body habitus and lordotic positioning. No pleural effusions or pneumothorax. Mediastinum: Mediastinal contours appear normal. Heart size is normal. Bones and chest wall: No suspicious bony lesions. Overlying soft tissues appear unremarkable. IMPRESSION: Large body habitus, lordotic positioning, limitations are present in quality of visualization of the lung parenchyma bilaterally as result especially across the lung bases but no definite acute disease is found. Dictated by: Narayan Silver M.D. on 09/24/2019 at 16:36 Approved by: Narayan Silver M.D. on 09/24/2019 at 16:37
--- NOTE | 2019-09-24 15:55 | ED.NEUROSD ---
HPI - Neuro Symptoms/Deficit General Chief Complaint: Neuro Symptoms/Deficit Stated Complaint: driving and all of a sudden everything went blank Time Seen by Provider: 09/24/19 17:34 Source: patient and family (son) Mode of arrival: Ambulatory Limitations: no limitations History of Present Illness HPI Narrative: This is a 69-year-old female who comes to the emergency department with complaint of altered mental status. Patient was driving her car with her son in the passenger seat when she looked over at him and said how did we get, where we going? Patient did recognize her son, episode lasted about 10 minutes and then resolved. Patient is son both state that she recalls events that had occurred just prior to this. And that she has not been confused or altered in any other way. They had eaten just before this episode so hypoglycemia is unlikely. Patient denies headache, no vision changes, no difficulty with speech, no facial droop, no weakness numbness or difficulty with movement. She denies any chest pain, shortness of breath, no nausea, no vomiting, no urinary symptoms or issues with bowel movements. Patient has not had similar symptoms in the past. She has a history of a heart attack 1 year ago and takes several medications for this including Plavix, lisinopril, metoprolol and amiodarone. He patient does have a history of atrial fibrillation, hypertension and aortic stenosis. No tobacco, she drinks an alcoholic drinks once a month but none today. No illicit. Her primary care is Dr. West and Dr. Rosario is her Cardiology. On Anticoagulants: Yes (plavix/asa) Related Data Home Medications Medication Instructions Recorded Confirmed apixaban [Eliquis] 5 mg PO BID 09/24/19 09/24/19 losartan-hydrochlorothiazide 1 tab PO DAILY 09/24/19 09/24/19 Previous Rx's Medication Instructions Recorded triamcinolone acetonide 0.1 % 1 applictn TOPICAL BID #80 gram 07/08/18 topical cream nitroglycerin 0.4 mg sublingual 0.4 mg SL Q5-15M PRN #90 tab 09/26/18 tablet amiodarone 200 mg tablet 200 mg PO DAILY #90 tab 11/12/18 atorvastatin 80 mg tablet 80 mg PO BEDTIME #90 tab 11/12/18 clopidogrel 75 mg tablet 75 mg PO DAILY #90 tab 11/12/18 metformin 500 mg tablet 1,000 mg PO BID #360 tab 12/04/18 insulin glargine 100 unit/mL (3 20 unit SUBCUT BID #15 ml 01/02/19 mL) subcutaneous pen insulin lispro 100 unit/mL See Rx Instructions SUBCUT TID #15 02/26/19 subcutaneous cartridge ml MDD sliding scale metoprolol tartrate 50 mg tablet 50 mg PO BID #180 tab 05/26/19 Allergies Allergy/AdvReac Type Severity Reaction Status Date / Time Sulfa (Sulfonamide Allergy Mild RASH Verified 08/05/19 10:36 Antibiotics) Review of Systems Review of Systems ROS Unobtainable: All systems reviewed & are unremarkable except as noted in HPI and below Patient History Medical History Colon polyps (Resolved 08/31/14) Coronary artery disease (Acute) Diabetes mellitus (Chronic ~2011) Hypertension (Chronic ~2011) Knee osteoarthritis (Chronic) Osteopenia (Chronic 05/20/14) Recent heart attack (Acute) Rheumatoid arthritis (Chronic) Surgical History Anesthesia (Resolved) History of colonoscopy with polypectomy (Resolved 08/31/14) History of knee replacement (Resolved) History of knee replacement (Resolved) History of left cataract surgery (Resolved 03/23/15) History of right cataract surgery (Resolved 04/06/15) Status post delivery (Resolved 12/21/78) Family History Brother Drowning Father Heart disease Mother Diabetes mellitus Sister Bone cancer Sister Bone cancer Social History marital status: household members: none Smoking Status: Never smoker alcohol intake: current substance use type: does not use Smoking Status: Never smoker Exam Narrative Exam Narrative: GEN: Obese, well appearing female, alert and oriented x 3, patient appears to be in no acute distress. HEENT: Atraumatic, pupils are equal round reactive to light, extraocular movements are intact. Throat is clear without any exudates, erythema, tonsillar enlargement or uvular deviation, no facial droop. HEART: Regular rate and rhythm without murmur, clicks, rubs. Pulses are equal in upper and lower extremities LUNGS:Lungs clear to auscultation, no wheezes, rales, crackles, chest moves symmetrically ABD:bowel sounds normal, soft, non-tender, no guarding, rebound, rigidity, no masses noted, no hepatosplenomegaly :No CVA tenderness MSCL: Non-tender, no muscle atrophy, muscles strength 5/5 upper and lower extremities, full range of motion, normal gait NEURO:CN 2-12 intact, sensation normal, reflexes 2/4 upper and lower extremities. finger nose finger test normal, heel vogt test normal, romberg normal SKIN: No rashes noted Initial Vital Signs Initial Vital Signs: Vital Signs Temperature 97.8 F 09/24/19 15:43 Pulse Rate 74 09/24/19 15:43 Respiratory Rate 20 09/24/19 15:43 Blood Pressure 140/69 09/24/19 15:43 Pulse Oximetry 95 09/24/19 15:43 Scores NIH Stroke Scale Level of Conciousness: Alert, keenly responsive Ask month/age: Answers both questions correctly. Open/close eyes, close hand: Performs both tasks correctly Best gaze horizontal: Normal Visual veras: No visual loss Facial palsy: Normal symetrical movement Left arm drift: No drift for full 10 sec Right arm drift: No drift for full 10 sec Left leg drift: No drift for full 10 sec Right leg drift: No drift for full 10 sec Limb ataxia: Absent Sensory on face/arms/legs: Normal, no sensory loss Best language: No aphasia, normal Dysarthria: Normal Extinction or inattention: No abnormality Total NIH Stroke scale score: 0 Course Orders Ordered: ED Orders 09/24/19 15:53 CT head/brain wo con Stat Chest [XR chest 1V] Stat EKG-12 Lead Stat 09/24/19 16:05 Complete Blood Count AUTO DIFF Stat Comprehensive Metabolic Panel Stat Prothrombin Time INR Stat Troponin & CK Cardiac Panel Stat 09/24/19 18:26 Troponin & CK Cardiac Panel Stat Vital Signs Vital signs: Vital Signs - 8 hr 09/24/19 15:43 09/24/19 16:00 09/24/19 17:00 Temperature 97.8 F Pulse Rate 74 73 73 Respiratory Rate 20 18 Blood Pressure 140/69 Blood Pressure [Left Wrist] 127/86 98/50 L Pulse Oximetry 95 99 98 09/24/19 17:35 09/24/19 18:00 09/24/19 18:30 Temperature Pulse Rate 73 75 75 Respiratory Rate 17 17 17 Blood Pressure Blood Pressure [Left Wrist] 116/56 L 117/55 L 123/59 L Pulse Oximetry 98 99 97 MDM - Neuro Symptoms/Deficit Lab Data Attestation: I reviewed the patient's lab results. Result diagrams: 09/24/19 16:05 09/24/19 16:05 Labs: Lab Results 09/24/19 09/24/19 09/24/19 Range/Units 16:05 16:05 16:05 WBC 11.9 H (4.5-11.0) X10^3/uL RBC 4.57 (4.0-5.2) X10^6/uL Hgb 12.9 (12.0-16.0) g/dL Hct 37.3 (36-46) % MCV 81.7 (80-100) fL MCH 28.3 (26-34) PG MCHC 34.6 (30-36) % RDW 14.0 (11.6-14.8) % Plt Count 326 (150-400) X10^3/uL Neut % (Auto) 74.4 (50-75) % Lymph % (Auto) 18.2 L (25-40) % [place] % (Auto) 5.4 (3-14) % Eos % (Auto) 1.9 L (2-4) % Baso % (Auto) 0.1 (0-2) % Neut # (Auto) 8900 H (3626-0999) /uL Lymph # (Auto) 2200 (1873-2133) /uL [place] # (Auto) 600 (0-900) /uL Eos # (Auto) 200 (0-450) /uL Baso # (Auto) 0 (0-100) /uL PT 13.5 H (10.1-12.7) SECONDS INR 1.2 (0.9-1.3) Sodium 138 (137-145) mmol/L Potassium 4.1 (3.4-5.1) mmol/L Chloride 99 (98-107) mmol/L Carbon Dioxide 27 (22-32) mmol/L BUN 19 H (7-17) mg/dL Creatinine 0.90 (0.52-1.04) mg/dL Estimated GFR > 60.0 (>60) mL/min BUN/Creatinine Ratio 21.1 (6-22) Glucose 239 H (80-110) mg/dL Calcium 9.8 (8.4-10.2) mg/dL Total Bilirubin 0.6 (0.2-1.3) mg/dL AST 19 (14-36) IU/L ALT 18 (<35) IU/L Alkaline Phosphatase 75 (38-126) U/L Total Creatine Kinase 50 (30-135) U/L CK-MB (CK-2) TNP CK-MB (CK-2) Rel Index TNP Troponin I < 0.012 (0.01-0.034) ng/mL Total Protein 7.6 (6.3-8.2) g/dL Albumin 4.2 (3.5-5.0) g/dL Globulin 3.4 (1.7-4.1) g/dL Albumin/Globulin Ratio 1.2 (1.0-2.8) 09/24/19 Range/Units 18:26 WBC (4.5-11.0) X10^3/uL RBC (4.0-5.2) X10^6/uL Hgb (12.0-16.0) g/dL Hct (36-46) % MCV (80-100) fL MCH (26-34) PG MCHC (30-36) % RDW (11.6-14.8) % Plt Count (150-400) X10^3/uL Neut % (Auto) (50-75) % Lymph % (Auto) (25-40) % [place] % (Auto) (3-14) % Eos % (Auto) (2-4) % Baso % (Auto) (0-2) % Neut # (Auto) (2981-4716) /uL Lymph # (Auto) (8636-4506) /uL [place] # (Auto) (0-900) /uL Eos # (Auto) (0-450) /uL Baso # (Auto) (0-100) /uL PT (10.1-12.7) SECONDS INR (0.9-1.3) Sodium (137-145) mmol/L Potassium (3.4-5.1) mmol/L Chloride (98-107) mmol/L Carbon Dioxide (22-32) mmol/L BUN (7-17) mg/dL Creatinine (0.52-1.04) mg/dL Estimated GFR (>60) mL/min BUN/Creatinine Ratio (6-22) Glucose (80-110) mg/dL Calcium (8.4-10.2) mg/dL Total Bilirubin (0.2-1.3) mg/dL AST (14-36) IU/L ALT (<35) IU/L Alkaline Phosphatase (38-126) U/L Total Creatine Kinase 44 (30-135) U/L CK-MB (CK-2) TNP CK-MB (CK-2) Rel Index TNP Troponin I < 0.012 (0.01-0.034) ng/mL Total Protein (6.3-8.2) g/dL Albumin (3.5-5.0) g/dL Globulin (1.7-4.1) g/dL Albumin/Globulin Ratio (1.0-2.8) Imaging Data CT scan - head: Radiologist's impression: Anuja Parker 69 F 1950 [place] [address] CT Scan Report Signed Patient: Anuja Parker LMR#: [id number] : 2Acct:[id number] Age/Sex: 69 / FDate of Service: 09/24/19 Loc: ED Accession Number: [id number] Procedure: CT head/brain wo con Ordering Provider: Mickie Garibay D.O. PROCEDURE: CT HEAD/BRAIN WO CON INDICATIONS: syncope TECHNIQUE: Noncontrast 4.5 mm thick angled axial sections acquired from the foramen magnum to the vertex, with coronal and sagittal reformats. For radiation dose reduction, the following was used: automated exposure control, adjustment of mA and/or kV according to patient size. COMPARISON: None. FINDINGS: Image quality: Excellent. CSF spaces: Basal cisterns are patent. No extra-axial fluid collections. Ventricles are normal in size and shape. Brain: No midline shift. No intracranial masses or hemorrhage. Daily-white matter interface is normal. Skull and face: Calvarium and visualized facial bones are intact, without suspicious lesions. Sinuses: Visualized sinuses and mastoids are clear. IMPRESSION: There is mild microvascular atherosclerotic change in the deep white matter of each hemisphere, but no acute or subacute stroke is identified. Depending on the clinical status followup by MR scanning may be warranted. Dictated by: Narayan Silver M.D. on 09/24/2019 at 16:37 Approved by: Narayan Silver M.D. on 09/24/2019 at 16:38 Chest x-ray: Radiologist's impression: [address] [address] XRay Report Signed Patient: Anuja Parker LMR#: [id number] : 2Acct:[id number] Age/Sex: 69 / FDate of Service: 09/24/19 Loc: ED Accession Number: [id number] Procedure: XR chest 1V Ordering Provider: Mickie Garibay D.O. PROCEDURE: XR CHEST 1V INDICATIONS: syncope TECHNIQUE: One view of the chest was acquired. COMPARISON: [facility], , CHEST 2 VIEW, 06/12/2008, 13:16. FINDINGS: Surgical changes and devices: None. Lungs and pleura: Lungs are clear considering large body habitus and lordotic positioning. No pleural effusions or pneumothorax. Mediastinum: Mediastinal contours appear normal. Heart size is normal. Bones and chest wall: No suspicious bony lesions. Overlying soft tissues appear unremarkable. IMPRESSION: Large body habitus, lordotic positioning, limitations are present in quality of visualization of the lung parenchyma bilaterally as result especially across the lung bases but no definite acute disease is found. Dictated by: Narayan Silver M.D. on 09/24/2019 at 16:36 Approved by: Narayan Silver M.D. on 09/24/2019 at 16:37 ECG Data Attestation: I personally reviewed and interpreted this ECG as follows: Prior ECG tracings: not available for review Interpretation: Rhythm rate of 71 AR 169 QRS of 96 QTC of 421. Patient has nonspecific T-wave changes. Patient does have little bit of in depression in 1 and aVL. Elevation of 1 mm in 3 and AVF. No EKG available in cardioserver or EMR although patient was seen for STEMi MDM Narrative Medical decision making narrative: Discussed with patient she had a transient loss of memory although seems to be very short-term memory was affected only. Patient has no other neurologic changes. Hypoglycemia is less likely causes she had eaten just before the event. Head CT, lab work and EKG do not show any acute findings. Patient's and discussed and plan for her to follow up with primary care for recheck. Discharge Plan Departure Patient Disposition: Home Clinical Impression: Altered mental status Instructions: DI for Altered Mental Status Activity Restrictions/Additional Instructions: Follow-up with your primary care physician in the next 24-48 hours for recheck. Call for an appointment. You may continue home medications as prescribed. Return to the emergency department for new or recurrent symptoms, new confusion, difficulty with speech, sudden severe headaches, passing out, new vision changes, facial droop, new weakness or numbness in your extremities, new chest pain, shortness of breath, persistent vomiting or other new or concerning symptoms. Prescriptions: No Action triamcinolone acetonide 0.1 % cream 1 applictn Topical BID Qty: 80 RF: 2 nitroglycerin 0.4 mg tablet, sublingual 0.4 mg SL Q5-15M PRN (Reason: chest pain) Qty: 90 RF: 11 clopidogrel 75 mg tablet 75 mg PO DAILY Qty: 90 RF: 3 atorvastatin 80 mg tablet 80 mg PO BEDTIME Qty: 90 RF: 3 amiodarone 200 mg tablet 200 mg PO DAILY Qty: 90 RF: 3 insulin lispro 100 unit/mL cartridge See Rx Instructions SUBCUT TID MDD sliding scale Qty: 15 RF: 1 metoprolol tartrate 50 mg tablet 50 mg PO BID Qty: 180 RF: 3 Lantus Solostar U-100 Insulin 100 unit/mL (3 mL) insulin pen 20 unit SUBCUT BID Qty: 15 RF: 11 metformin [Glucophage] 500 mg tablet 1,000 mg PO BID Qty: 360 RF: 3 losartan-hydrochlorothiazide 50-12.5 mg tablet 1 tab PO DAILY RF: 0 Eliquis 5 mg tablet 5 mg PO BID RF: 0 Referrals: Todd West MD [Primary Care Provider] -
[2019-09-24 16:00] VITALS: BP 127/86; PULSE 73; RESP 18; O2SAT 99
[2019-09-24 16:13] LABS: Add Manual Diff / Slide Review NO; Basophils Absolute Auto 0 /uL (0-100); Basophils Percent Auto 0.1 % (0-2); Eosinophils Absolute Auto 200 /uL (0-450); Eosinophils Percent Auto 1.9 % (2-4); Hematocrit 37.3 % (36-46); Hemoglobin 12.9 g/dL (12.0-16.0); Lymphocytes Absolute Auto 2200 /uL (1100-4500); Lymphocytes Percent Auto 18.2 % (25-40); Mean Corpuscular HGB Conc 34.6 % (30-36); Mean Corpuscular Hemoglobin 28.3 PG (26-34); Mean Corpuscular Volume 81.7 fL (80-100); Monocytes Absolute Auto 600 /uL (0-900); Monocytes Percent Auto 5.4 % (3-14); Neutrophils Absolute Auto 8900 /uL (1500-7000); Neutrophils Percent Auto 74.4 % (50-75); Platelet Count 326 X10^3/uL (150-400); Red Blood Cell Count 4.57 X10^6/uL (4.0-5.2); White Blood Cell Count 11.9 X10^3/uL (4.5-11.0)
[2019-09-24 16:20] LABS: INR 1.2 (0.9-1.3); Prothrombin Time 13.5 SECONDS (10.1-12.7)
[2019-09-24 16:25] LABS: Alanine Aminotransferase 18 IU/L (<35); Albumin 4.2 g/dL (3.5-5.0); Albumin Globulin Ratio 1.2 (1.0-2.8); Alkaline Phosphatase 75 U/L (38-126); Aspartate Aminotransferase 19 IU/L (14-36); BUN Creatinine Ratio 21.1 (6-22); Bilirubin Total 0.6 mg/dL (0.2-1.3); Blood Urea Nitrogen 19 mg/dL (7-17); Calcium 9.8 mg/dL (8.4-10.2); Carbon Dioxide 27 mmol/L (22-32); Chloride 99 mmol/L (98-107); Creatine Kinase 50 U/L (30-135); Estimated Glomerular Filt Rate > 60.0 mL/min (>60); Globulin 3.4 g/dL (1.7-4.1); Glucose 239 mg/dL (80-110); HEMOLYSIS < 15 (0-50); Potassium 4.1 mmol/L (3.4-5.1); Sodium 138 mmol/L (137-145); Total Protein 7.6 g/dL (6.3-8.2)
[2019-09-24 16:37] LABS: Troponin I < 0.012 ng/mL (0.01-0.034)
[2019-09-24 17:00] VITALS: BP 98/50; PULSE 73; O2SAT 98
[2019-09-24 17:35] VITALS: BP 116/56; PULSE 73; RESP 17; O2SAT 98
[2019-09-24 18:00] VITALS: BP 117/55; PULSE 75; RESP 17; O2SAT 99
[2019-09-24 18:30] VITALS: BP 123/59; PULSE 75; RESP 17; O2SAT 97
[2019-09-24 18:41] LABS: Creatine Kinase 44 U/L (30-135)
[2019-09-24 18:53] LABS: Troponin I < 0.012 ng/mL (0.01-0.034)
--- NOTE | 2019-09-24 18:55 | PC.NURSE ---
Pt w/ noted amnesia to events earlier in day. Now completely normal neuro exam including sensation, circulation, balance and FAST. NIH 0 at this time.
== END 2019-09-24 19:14 | disposition home or self-care (01) ==
PROVIDERS: Emergency Provider Emergency Medicine; Family Provider Family Medicine; PCP Family Medicine
DX: R41.82 Altered mental status, unspecified (principal); R55 Syncope and collapse; Z79.01 Long term (current) use of anticoagulants; E11.9 Type 2 diabetes mellitus without complications; I10 Essential (primary) hypertension
CPT/HCPCS: 36415; 70450; 71045; 80053; 82550; 84484; 85025; 85610; 93005; 93010; 99283; 99285

== ENCOUNTER → 2019-10-10 09:29 | Outpatient (CLI) | payer OTHER, SELFPAY ==
--- NOTE | 2019-10-10 09:30 | DI.US.S_ITS ---
PROCEDURE: US CAROTID DOPPLER BI INDICATIONS: TIA TECHNIQUE: Color and pulse Doppler interrogation was performed of both carotid systems, with image documentation and velocity measurements. COMPARISON: None. FINDINGS: Stenosis calculations are based on SRU (Society of Radiologists in Ultrasound) criteria. Right side: Brachial blood pressure: 129/77 mm Hg. Common carotid artery peak systolic velocity: 60 cm/sec. Internal carotid artery peak systolic velocity: 61 cm/sec. Internal carotid artery end diastolic velocity: 23 cm/sec. External carotid artery peak systolic velocity: 49 cm/sec. ICA/CCA peak systolic ratio: 0.9. Daily scale imaging description: Mild scattered plaque. Percent internal carotid artery stenosis: Less than 50%. Vertebral artery: Flow direction is antegrade. Left side: Brachial blood pressure: 130/73 mm Hg. Common carotid artery peak systolic velocity: 62 cm/sec. Internal carotid artery peak systolic velocity: 77 cm/sec. Internal carotid artery end diastolic velocity: 29 cm/sec. External carotid artery peak systolic velocity: 42 cm/sec. ICA/CCA peak systolic ratio: 1.2. Daily scale imaging description: Mild scattered plaque. Percent internal carotid artery stenosis: Less than 50%. Vertebral artery: Flow direction is antegrade. IMPRESSION: Less than 50% bilateral internal carotid artery stenosis. Dictated by: Lico Felton [facility] Interpreted: Narayan Silver MD on 10/10/2019 at 14:33 Approved by: Narayan Silver M.D. on 10/10/2019 at 19:46
== END ==
PROVIDERS: PCP Family Medicine; Visit Provider Family Medicine
DX: G45.9 Transient cerebral ischemic attack, unspecified (principal)
CPT/HCPCS: 93880

== ENCOUNTER → 2019-10-17 09:24 | Outpatient (CLI) | payer OTHER, SELFPAY ==
--- NOTE | 2019-10-17 09:26 | DI.MRI.S_ITS ---
PROCEDURE: MR STROKE Pre- and post-contrast brain MRI, non-contrast brain MR angiogram, pre- and postcontrast neck MR angiogram INDICATIONS: TIA TECHNIQUE: Brain: Noncontrast axial T1 spin echo, axial T2 fast spin echo, sagittal and axial FLAIR, coronal T2 fast spin echo, axial gradient echo, axial diffusion and ADC through the brain. After the administration of contrast, axial 3D VIBE of the cranial vasculature and brain. Brain MRA: Non-contrast 3-D time of flight MR angiogram, with multiple bruyjry-[id number]-wwvzrvpxhy (MIP) reformats performed. Neck MRA: Axial and sagittal TruFISP through the neck. Coronal dynamic MR angiogram during administration of contrast in the arterial and venous phases, with 3-dimenstional pqpmzms-wbnulbmhp-zqebrbslwf (MIP) reformats constructed from subtraction images. COMPARISON: [facility], CT, CT HEAD/BRAIN WO CON, 09/24/2019, 16:07. FINDINGS: Image quality: Excellent. BRAIN: CSF spaces: Ventricles are normal in size and shape. Basal cisterns are patent. No extra-axial fluid collections. Brain: No intracranial bleeds or mass effects. Daily-white matter interface is normal. Diffusion weighted images show no acute ischemic insults. Brainstem appears normal. Normal intravascular flow voids are present. No abnormal intracranial enhancement. Skull and face: Calvarial marrow signal is normal. Orbits appear normal. Sinuses: Sinuses and mastoids are clear. BRAIN MR ANGIOGRAM: Anterior circulation: Intracranial internal carotid arteries are normal in size and enhancement. The flow within the paired anterior cerebral arteries is normal and symmetric. The flow within the middle cerebral arteries is normal and symmetric. The anterior communicating artery is seen. No stenoses, occlusions, or aneurysms. Posterior circulation: The visualized portions of the vertebral arteries demonstrate normal caliber, and join to form a normal appearing basilar artery. The flow within the posterior cerebral arteries is normal and symmetric. No stenoses, occlusions, or aneurysms. There is incidental note of persistence of circulation on the right consistent with congenital variation. NECK MR ANGIOGRAM: Carotids: Great vessels demonstrate a conventional anatomy as they arise from the aortic arch. The origins of the common carotid arteries appear patent. The calibers and courses of both common carotid arteries are normal. The bifurcation regions appear normal bilaterally. The internal carotid arteries demonstrate normal course and caliber. Posterior circulation: The origins of the vertebral arteries appear patent. More superior portions of both vertebral arteries demonstrate normal course and caliber, and join to form a normal appearing basilar artery. Miscellaneous: Subclavian arteries appear patent. Pre-contrast images through the neck show no soft tissue abnormalities. IMPRESSION: 1. No acute intracranial process. 2. No areas of hemodynamically significant stenosis, vascular occlusion or aneurysmal dilation within the anterior or posterior circulation. 3. No areas of hemodynamically significant stenosis, vascular occlusion or aneurysmal dilation within the neck vasculature. Dictated by: Nati Gil M.D. on 10/17/2019 at 11:41 Approved by: Nati Gil M.D. on 10/17/2019 at 11:47
== END ==
PROVIDERS: PCP Family Medicine; Visit Provider Family Medicine
DX: G45.9 Transient cerebral ischemic attack, unspecified (principal)
CPT/HCPCS: 70548; 70553; A9579

== ENCOUNTER → 2019-10-24 13:28 | Outpatient (CLI) | payer OTHER, SELFPAY ==
--- NOTE | 2019-10-24 | DI.ECHO.S_ITS ---
[facility]---------+ [facility] +---------+ : : [address] : : : : [id number] : : : : Phone: [phone]+ Echocardiogram Report + + :Name: HENOK ARCE Study Date: 10/24/2019 Height: 62 in : :[facility] Weight: 261 lb : : Gender: Female BSA: 2.1 m2 : :: 1950 Age: 69 yrs BP: 150/86 mmHg: :Reason For Study: Aortic valve stenosis : :Ordering Physician: Светлана : :Kassi Rosario Performed By: Layla Garnett : + + Interpretation Summary The study quality was technically difficult. The left ventricular cavity is small. The ejection fraction is estimated to be 70-75%. There has been no significant change in LVEF since the previous study. There is no echo evidence for significant left ventricular outflow tract obstruction. Diastolic parameters suggest a pseudonormalization pattern, consistent with probable elevated filling pressures. The right ventricle is normal in size and function. The aortic valve is moderately calcified. The aortic valve is not well visualized. There is severely reduced leaflet mobility. The peak aortic velocity is 3.4 m/sec. The aortic valve mean gradient is 26.6 mmHg. The calculated aortic valve area is 0.77 cm2. The peak aortic velocity on the previous exam was 3.2 m/sec. There is moderate to severe aortic stenosis. There is moderate mitral annular calcification. The mitral valve is not well visualized. Mean gradient across mitral valve 2.9 mmHg and with pressure half-time, mitral valve area about 2.4 tar man?. No significant mitral stenosis or mitral regurgitation seen. Procedure: A two-dimensional transthoracic echocardiogram with color flow and Doppler was performed. The study quality was technically difficult. Definity was not used due to history of possible allergic reaction. Comparison is made with the echocardiogram of 09/15/2018. The patient was in normal sinus rhythm during the exam. Left Ventricle: Left ventricular wall thickness is moderately increased. The left ventricular cavity is small. There is no echo evidence for significant left ventricular outflow tract obstruction. The ejection fraction is estimated to be 70-75%. There has been no significant change since the previous study. In some of the apical views, apex and distal septum appears to be hypokinetic as mentioned in the previous study as well. Peterson was not well visualized however no obvious thrombus seen. Diastolic parameters suggest a pseudonormalization pattern, consistent with probable elevated filling pressures. Right Ventricle: The right ventricle is normal in size and function. Atria: The left atrium is mildly dilated. There has been no significant change since the previous study. Right atrial size is normal. The interatrial septum is intact with no evidence for an atrial septal defect. Mitral Valve: There is moderate mitral annular calcification. The mitral valve leaflets are mildly calcified. The mitral valve is not well visualized. There is trace mitral regurgitation. Mean gradient across mitral valve 2.9 mmHg and with pressure half-time, mitral valve area about 2.4 tar man?. No significant mitral stenosis or mitral regurgitation seen. Aortic Valve: The aortic valve is moderately calcified. The aortic valve is not well visualized. There is severely reduced leaflet mobility. The peak aortic velocity is 3.4 m/sec. The aortic valve mean gradient is 26.6 mmHg. The calculated aortic valve area is 0.77 cm2. The peak aortic velocity on the previous exam was 3.2 m/sec. There is moderate to severe aortic stenosis. There is trace aortic regurgitation. Tricuspid Valve: The tricuspid valve is not well visualized, but is grossly normal. Pulmonary artery pressures cannot be estimated because of the lack of a measurable TR jet velocity. There is trace tricuspid regurgitation. Pulmonic Valve: The pulmonic valve is not well visualized. Great Vessels: The aortic root is normal size. The ascending aorta is at the upper limits of normal in size. The aortic arch is normal in size. The inferior vena cava was not visualized. Pericardium/ Pleura There is no pericardial effusion. MMode/2D Measurements & Calculations LVIDd: 3.3 cm LVOT diam: 1.8 cm LVIDs: 2.4 cm Ao root diam: 3.8 cm FS: 25.4 % asc Aorta Diam: 3.7 cm IVSd: 1.8 cm Ao Arch Diam (Prox Trans): 2.6 cm LVPWd: 1.0 cm LV florez. diameter/BSA (cm/m^2): 1.5 LV sys. diameter/BSA (cm/m^2): 1.1 LA A2 area: 23.9 cm2 RA long axis: 4.6 cm LA A4 area: 20.1 cm2 RA area: 14.0 cm2 LA length (vol): 4.8 cm RA vol: 36.8 ml LA vol: 85.2 ml RA : 17.2 ml/m2 LA vol index: 39.8 ml/m2 RVD1 (basal): 3.8 cm RVD2 (mid): 2.7 cm TAPSE: 1.9 cm Doppler Measurements & Calculations Ao V2 max: 341.6 cm/sec LVOT Max Young: 85.3 cm/sec Ao V2 mean: 244.1 cm/sec LV V1 max P.9 mmHg Ao max P.7 mmHg LV V1 VTI: 22.6 cm Ao mean P.6 mmHg BRIAN(I,D): 0.77 cm2 Ao V2 VTI: 74.0 cm BRIAN(V,D): 0.63 cm2 sev ratio: 0.30 BRIAN indexed to BSA (cm^2/m^2): 0.36 MV E max young: 113.1 cm/sec PA V2 max: 64.3 cm/sec MV A max young: 116.2 cm/sec PA V2 mean: 50.3 cm/sec MV E/A: 0.97 PA mean P.1 mmHg Med Peak E' Young: 3.4 cm/sec PA Accel Time: 0.12 sec E/E' med: 33.6 Lat Peak E' Young: 4.8 cm/sec E/E' lat: 23.4 E/e' average: 28.5 MV dec time: 0.30 sec MV P1/2t: 90.3 msec MVA(VTI): 1.8 cm2 MV V2 mean: 82.1 cm/sec MV P1/2t max young: 113.0 cm/sec MV mean P.9 mmHg MVA(P1/2t): 2.4 cm2 MV V2 VTI: 31.6 cm SV(LVOT): 57.0 ml Reading Physician:04:23 PM
== END ==
PROVIDERS: PCP Family Medicine; Visit Provider Internal Medicine Cardiovascular Disease
DX: I35.0 Nonrheumatic aortic (valve) stenosis (principal)
CPT/HCPCS: 93306

== ENCOUNTER → 2019-10-27 12:32 | Outpatient (CLI) | payer OTHER, SELFPAY ==
[2019-10-27 16:05] LABS: BUN Creatinine Ratio 22.2 (6-22); Blood Urea Nitrogen 20 mg/dL (7-17); Calcium 9.3 mg/dL (8.4-10.2); Carbon Dioxide 32 mmol/L (22-32); Chloride 98 mmol/L (98-107); Estimated Glomerular Filt Rate > 60.0 mL/min (>60); Glucose 249 mg/dL (80-110); HEMOLYSIS < 15 (0-50); Potassium 4.2 mmol/L (3.4-5.1); Sodium 138 mmol/L (137-145)
[2019-10-27 16:32] LABS: Thyroid Stimulating Hormone 1.18 uIU/mL (0.47-4.68)
== END ==
PROVIDERS: PCP Family Medicine; Visit Provider Internal Medicine Cardiovascular Disease
DX: E11.9 Type 2 diabetes mellitus without complications (principal); I10 Essential (primary) hypertension
CPT/HCPCS: 36415; 80048; 83036; 84443

== ENCOUNTER → 2019-12-31 10:05 | Outpatient (CLI) | payer OTHER, SELFPAY ==
--- NOTE | 2019-12-31 10:06 | DI.MG.S_ITS ---
BILATERAL DIGITAL DIAGNOSTIC MAMMOGRAM 3D/2D SHORT-TERM FOLLOW-UP: 12/31/2019 CLINICAL: Patient returns for a 6 month follow up of the left breast, due for bilateral imaging. Comparison is made to exams dated: 05/15/2019 mammogram, 11/15/2018 mammogram, and 08/29/2018 mammogram - [facility]. There are scattered fibroglandular elements in both breasts. There are linear fine pleomorphic calcifications in the left breast at 2 o'clock middle depth. These are not significantly changed. There is a biopsy clip associated with the calcifications. No other significant masses, calcifications, or other findings are seen in either breast. IMPRESSION: PROBABLY BENIGN The linear fine pleomorphic calcifications in the left breast are probably benign. Previous biopsy in this region was benign. No associated developing asymmetry. A follow-up left mammogram in 6 months is recommended to demonstrate stability. Findings and recommendations were conveyed to the patient at time of exam. This exam was interpreted at Station ID: [id number]. NOTE: For mammograms, a report in lay terms will be sent to the patient. Approximately 15% of breast malignancies will not be visualized mammographically. In the management of a palpable breast mass, a negative mammogram must not discourage biopsy of a clinically suspicious lesion. Electronically Signed By: Karime uribe/:12/31/2019 11:10:50 copy to: Jyotsna West letter sent: Followup Recommended ACR BI-RADS Category 3: Probably benign [id number]
[2019-12-31 12:18] LABS: Hemoglobin A1C% w Est Avg Glu 8.2 % (4.0-6.0)
[2019-12-31 12:21] LABS: BUN Creatinine Ratio 15.6 (6-22); Blood Urea Nitrogen 15 mg/dL (7-17); Calcium 9.7 mg/dL (8.4-10.2); Carbon Dioxide 31 mmol/L (22-32); Chloride 101 mmol/L (98-107); Glucose 130 mg/dL (80-110); HEMOLYSIS < 15 (0-50); Potassium 4.8 mmol/L (3.4-5.1); Sodium 138 mmol/L (137-145)
== END ==
PROVIDERS: PCP Family Medicine; Referring Provider Family Medicine; Visit Provider Specialist
DX: R92.8 Other abnormal and inconclusive findings on diagnostic imaging of breast (principal); R92.1 Mammographic calcification found on diagnostic imaging of breast; E11.9 Type 2 diabetes mellitus without complications
CPT/HCPCS: 36415; 77066; 80048; 83036; G0279

== ENCOUNTER → 2020-03-26 11:40 | Outpatient (CLI) | payer OTHER, SELFPAY ==
[2020-03-26 12:30] LABS: Hemoglobin A1C% w Est Avg Glu 10.4 % (4.0-6.0)
[2020-03-26 12:33] LABS: BUN Creatinine Ratio 20.9 (6-22); Blood Urea Nitrogen 18 mg/dL (7-17); Calcium 9.2 mg/dL (8.4-10.2); Carbon Dioxide 26 mmol/L (22-32); Chloride 101 mmol/L (98-107); Estimated Glomerular Filt Rate > 60.0 mL/min (>60); Glucose 273 mg/dL (80-110); HEMOLYSIS < 15 (0-50); Potassium 4.3 mmol/L (3.4-5.1); Sodium 136 mmol/L (137-145)
== END ==
PROVIDERS: PCP Family Medicine; Referring Provider Family Medicine; Visit Provider Family Medicine
DX: E11.9 Type 2 diabetes mellitus without complications (principal)
CPT/HCPCS: 36415; 80048; 83036

== ENCOUNTER → 2020-08-12 14:51 | Outpatient (CLI) | payer OTHER, SELFPAY ==
--- NOTE | 2020-08-12 | DI.MG.S_ITS ---
UNILATERAL LEFT DIGITAL DIAGNOSTIC MAMMOGRAM 3D/2D SHORT-TERM FOLLOW-UP: 08/12/2020 CLINICAL: Patient returns for a 6 month follow up of the left breast. Comparison is made to exams dated: 12/31/2019 mammogram, 05/15/2019 mammogram, 11/15/2018 mammogram - [facility], 12/05/2018 stereotactic biopsy - [facility], and 08/29/2018 mammogram - [facility]. There are scattered fibroglandular elements in left breast. There are linear fine pleomorphic calcifications in the left breast at 2 o'clock middle depth. These are not significantly changed. There is a biopsy clip associated with the calcifications. No other significant masses or calcifications are seen in the breast. IMPRESSION: PROBABLY BENIGN The linear fine pleomorphic calcifications in the left breast are probably benign. A follow-up mammogram in 6 months is recommended to demonstrate stability. This exam was interpreted at Station ID: [id number]. NOTE: For mammograms, a report in lay terms will be sent to the patient. Approximately 15% of breast malignancies will not be visualized mammographically. In the management of a palpable breast mass, a negative mammogram must not discourage biopsy of a clinically suspicious lesion. Electronically Signed By: Vipul deras/trixie:08/12/2020 16:02:13 copy to: Jyotsna West letter sent: Followup Recommended ACR BI-RADS Category 3: Probably benign [id number]
== END ==
PROVIDERS: PCP Family Medicine; Referring Provider Specialist; Visit Provider Specialist
DX: R92.8 Other abnormal and inconclusive findings on diagnostic imaging of breast (principal); R92.1 Mammographic calcification found on diagnostic imaging of breast
CPT/HCPCS: 77065; G0279

== ENCOUNTER → 2020-09-01 09:21 | Outpatient (CLI) | payer OTHER, SELFPAY ==
--- NOTE | 2020-09-01 | DI.ECHO.S_ITS ---
[place] [facility]---------+ [facility] +---------+ : : [address] [place] : : : : [id number] : : : : Phone: [phone]---------+ Echocardiogram Report + + :Name: HENOK ARCE Study Date: 09/01/2020 Height: 62 in : :[facility] Weight: 255 lb : : Gender: Female BSA: 2.1 m2 : :: 1950 Age: 70 yrs BP: 138/87 mmHg: :Reason For Study: AORTIC STENOSIS : :Ordering Physician: SANDRA, : :[place] Performed By: Eloina Duke : :Referring: ORLANDO FLORES : + + Interpretation Summary 1) Normal left ventricular size, wall motion, and systolic function (EF 65- 70%). 2) Normal right ventricular size and function. 3) There is early severe aortic stenosis (valve area 0.86cm2, mean gradient 37mmHg). 4) Compared to the Echo done 10/24/2019, aortic stenosis has progressed from moderate-severe to early severe on this study. Procedure: A two-dimensional transthoracic echocardiogram with color flow and Doppler was performed. The study quality was technically difficult. Comparison is made with the echocardiogram of 10/24/2019. The patient was in sinus bradycardia with heart rates between 59-64 bpm during the exam. Left Ventricle: Left ventricular wall thickness is moderately increased. The left ventricle is normal in size. The ejection fraction is estimated to be 65- 70%. Diastolic function could not be accurately assessed due to confounding valvular disease. Right Ventricle: The right ventricle is normal in size and function. Atria: The left atrium is moderately dilated. Right atrial size is normal. There is no Doppler evidence for an interatrial shunt. Mitral Valve: The mitral valve leaflets are moderately calcified. There is moderate mitral annular calcification. The mitral valve mean gradient is 3.1 mmHg. There is mild mitral stenosis. There is trace mitral regurgitation. Aortic Valve: The aortic valve is severely calcified. There is severe aortic stenosis. The peak aortic velocity is 4 m/sec. The aortic valve mean gradient is 37 mmHg. The calculated aortic valve area is .86 cm2. There is trace aortic regurgitation. Tricuspid Valve: The tricuspid valve is not well visualized, but is grossly normal. Pulmonary artery pressures cannot be estimated because of the lack of a measurable TR jet velocity but the IVC suggests a CVP of around 3 mmHg. Pulmonic Valve: The pulmonic valve is not well seen, but is grossly normal. There is no pulmonic valvular regurgitation. Great Vessels: The aortic root is not well visualized but is probably normal size. The ascending aorta is at the upper limits of normal in size. The IVC is of normal diameter and collapses greater than 50% with a sniff. This suggests a low right atrial pressure of 3 mm Hg. Pericardium/ Pleura There is no pericardial effusion. There is no pleural effusion. MMode/2D Measurements & Calculations LVIDd: 4.4 cm LVOT diam: 2.0 cm LVIDs: 2.8 cm asc Aorta Diam: 3.4 cm FS: 36.0 % Ao Arch Diam (Prox Trans): 3.0 cm IVSd: 1.8 cm LVPWd: 1.5 cm LV florez. diameter/BSA (cm/m^2): 2.1 LV sys. diameter/BSA (cm/m^2): 1.3 LA A2 area: 28.5 cm2 RA long axis: 5.1 cm LA A4 area: 23.2 cm2 RA area: 15.4 cm2 LA length (vol): 5.9 cm RA vol: 39.6 ml LA vol: 96.0 ml RA : 18.7 ml/m2 LA vol index: 45.3 ml/m2 IVC diam: 1.0 cm RVD1 (basal): 3.6 cm TAPSE: 1.7 cm Doppler Measurements & Calculations Ao V2 max: 403.9 cm/sec LVOT Max Young: 108.7 cm/sec Ao V2 mean: 287.7 cm/sec LV V1 max P.7 mmHg Ao max P.2 mmHg LV V1 VTI: 27.9 cm Ao mean P.1 mmHg BRIAN(I,D): 0.98 cm2 Ao V2 VTI: 91.0 cm BRIAN(V,D): 0.86 cm2 sev ratio: 0.31 BRIAN indexed to BSA (cm^2/m^2): 0.46 MV E max young: 126.7 cm/sec PA V2 max: 63.2 cm/sec MV A max young: 102.5 cm/sec PA V2 mean: 39.9 cm/sec MV E/A: 1.2 PA mean P.79 mmHg Med Peak E' Young: 2.2 cm/sec PA pr(Accel): 13.9 mmHg E/E' med: 56.3 Lat Peak E' Young: 3.0 cm/sec E/E' lat: 42.7 E/e' average: 49.5 MV dec time: 0.39 sec MVA(VTI): 1.6 cm2 MV V2 mean: 83.9 cm/sec SV(LVOT): 89.5 ml MV mean P.1 mmHg MV V2 VTI: 55.1 cm Reading Physician:05:46 PM
== END ==
PROVIDERS: PCP Family Medicine; Referring Provider Internal Medicine Cardiovascular Disease; Visit Provider Internal Medicine Cardiovascular Disease
DX: I35.0 Nonrheumatic aortic (valve) stenosis (principal)
CPT/HCPCS: 93306

== ENCOUNTER → 2020-09-08 10:10 | Outpatient (CLI) | payer OTHER, SELFPAY ==
[2020-09-08 10:49] LABS: Hemoglobin 13.5 g/dL (12.0-16.0); Mean Corpuscular Hemoglobin 27.6 PG (26-34); Mean Corpuscular Volume 83.8 fL (80-100); Platelet Count 285 X10^3/uL (150-400); Red Blood Cell Count 4.89 X10^6/uL (4.0-5.2); Red Cell Distribution Width 14.5 % (11.6-14.8); White Blood Cell Count 9.3 X10^3/uL (4.5-11.0)
[2020-09-08 11:13] LABS: Hemoglobin A1C% w Est Avg Glu 10.8 % (4.0-6.0)
[2020-09-08 11:28] LABS: BUN Creatinine Ratio 24.7 (6-22); Blood Urea Nitrogen 21 mg/dL (7-17); Calcium 9.5 mg/dL (8.4-10.2); Carbon Dioxide 25 mmol/L (22-32); Chloride 103 mmol/L (98-107); Cholesterol 173 mg/dL (140-199); Estimated Glomerular Filt Rate > 60.0 mL/min (>60); Glucose 385 mg/dL (80-110); HDL Cholesterol 50 mg/dL (40-60); HEMOLYSIS < 15 (0-50); LDL Cholesterol Calculated 95 mg/dL (<100); Potassium 4.8 mmol/L (3.4-5.1); Sodium 134 mmol/L (137-145); Triglycerides 140 mg/dL (35-150)
[2020-09-08 11:30] LABS: Creatinine Urine Random 102.4 mg/dL
[2020-09-08 11:33] LABS: Microalbumi Creatinin Ratio Ur 44.9 ug/mg CR (<30); Microalbumin Urine Random 4.6 mg/dL (0-1.6)
== END ==
PROVIDERS: PCP Family Medicine; Referring Provider Nurse Practitioner Family; Visit Provider Nurse Practitioner Family
DX: E11.9 Type 2 diabetes mellitus without complications (principal); I10 Essential (primary) hypertension; G45.9 Transient cerebral ischemic attack, unspecified; I25.10 Atherosclerotic heart disease of native coronary artery without angina pectoris
CPT/HCPCS: 36415; 80048; 80061; 82043; 82570; 83036; 85027

== ENCOUNTER → 2020-11-01 13:38 | Outpatient (CLI) | payer OTHER, SELFPAY ==
[2020-11-01 17:05] LABS: BUN Creatinine Ratio 17.6 (6-22); Blood Urea Nitrogen 15 mg/dL (7-17); Calcium 9.4 mg/dL (8.4-10.2); Carbon Dioxide 29 mmol/L (22-32); Chloride 102 mmol/L (98-107); Estimated Glomerular Filt Rate > 60.0 mL/min (>60); Glucose 134 mg/dL (80-110); HEMOLYSIS < 15 (0-50); Potassium 4.7 mmol/L (3.4-5.1); Sodium 137 mmol/L (137-145)
== END ==
PROVIDERS: PCP Family Medicine; Referring Provider Family Medicine; Visit Provider Internal Medicine Interventional Cardiology
DX: I35.0 Nonrheumatic aortic (valve) stenosis (principal)
CPT/HCPCS: 36415; 80048

== ENCOUNTER → 2020-11-10 09:46 | Outpatient (CLI) | payer OTHER, SELFPAY ==
[2020-11-10 11:04] LABS: Hematocrit 38.1 % (36-46); Hemoglobin 12.5 g/dL (12.0-16.0); Mean Corpuscular HGB Conc 32.8 % (30-36); Mean Corpuscular Hemoglobin 27.1 PG (26-34); Mean Corpuscular Volume 82.6 fL (80-100); Platelet Count 311 X10^3/uL (150-400); Red Blood Cell Count 4.61 X10^6/uL (4.0-5.2); Red Cell Distribution Width 14.5 % (11.6-14.8); White Blood Cell Count 8.6 X10^3/uL (4.5-11.0)
== END ==
PROVIDERS: PCP Family Medicine; Referring Provider Family Medicine; Visit Provider Internal Medicine Interventional Cardiology
DX: I35.0 Nonrheumatic aortic (valve) stenosis (principal)
CPT/HCPCS: 36415; 85027

== ENCOUNTER → 2020-11-23 10:21 | Outpatient (CLI) | payer OTHER, SELFPAY ==
--- NOTE | 2020-11-23 10:22 | DI.US.S_ITS ---
PROCEDURE: US THYROID INDICATIONS: THYROID NODULES TECHNIQUE: Real-time scanning was performed of the thyroid gland, with image documentation. COMPARISON: None. FINDINGS: Right: Thyroid lobe measures 5.1 x 2.8 x 2.4 cm, and is homogeneous in echotexture. Left: Thyroid lobe measures 4.2 x 1.5 x 1.2 cm, and is homogenous in echotexture. Isthmus: 6 mm thick. Nodule number: 1 Location: Right superior/mid Size: 3.0 x 2.1 x 1.9 cm Composition: Solid Echogenicity: Hypoechoic Shape: Wider than tall Margins: Irregular Echogenic foci: Punctate Total points: 9 ACR TI-RADS category: 5, highly suspicious Nodule number: 2 Location: Right mid Size: 1.8 x 1.4 x 1.2 cm Composition: Predominantly solid Echogenicity: Hypoechoic Shape: Wider than tall Margins: Smooth Echogenic foci: None Total points: 4 ACR TI-RADS category: 4, moderately suspicious Nodule number: 3 Location: Right mid Size: 1.0 x 0.6 cm Composition: Densely calcified with posterior shadowing that limits evaluation. Nodule number: 4 Location: Left mid/inferior Size: 0.8 x 0.5 x 0.4 cm Composition: Cystic Echogenicity: Anechoic Shape: Wider than tall Margins: Smooth Echogenic foci: None Total points: 0 ACR TI-RADS category: 1, benign IMPRESSION: Multiple thyroid nodules as described in detail above. Recommend FNA of the highly suspicious 3.0 cm nodule in the right superior thyroid. Additional 1.8 cm moderately suspicious nodule in the right mid thyroid also meets criteria for FNA. ACR TI-RADS definitions and recommendations: TI-RADS 1 (benign): 0 points. FNA not needed. TI-RADS 2 (not suspicious): 2 points. FNA not needed. TI-RADS 3 (mildly suspicious): 3 points. * FNA if 2.5 cm or larger, follow up if 1.5 cm or larger (at 1, 3, and 5 years). TI-RADS 4 (moderately suspicious): 4-6 points. * FNA if 1.5 cm or larger, follow up if 1 cm or larger (at 1, 2, 3, and 5 years). TI-RADS 5 (highly suspicious): 7 points or more. * FNA if 1 cm or larger, follow up if 0.5 cm or larger (every year for 5 years). Dictated by: Vipul Liu M.D. on 11/23/2020 at 17:49 Approved by: Vipul Liu M.D. on 11/23/2020 at 17:59
== END ==
PROVIDERS: PCP Family Medicine; Referring Provider Family Medicine; Visit Provider Family Medicine
DX: E04.2 Nontoxic multinodular goiter (principal)
CPT/HCPCS: 76536

== ENCOUNTER → 2020-12-28 12:38 | Outpatient (CLI) | payer OTHER, SELFPAY ==
--- NOTE | 2020-12-28 | PATH_ITS ---
Note [facility] Accession Number: [id number] TESTS RESULT FLAG UNITS REF RANGE LAB Clinician Provided Cytology Information No. of containers..00 Previously Prepared Cytology Slide 35 Unknown Storage/container code(s) RIGHT THYROID NODULE DIAGNOSIS: RIGHT THYROID NODULE INADEQUATE, INSUFFICIENT CELLS FOR STUDY. [place] CATEGORY I. NONDIAGNOSTIC: NEARLY ACELLULAR SPECIMEN AND OBSCURING BLOOD. Pathologist ICD10: 01 R22.1 01 FINDINGS: Right: Thyroid lobe measures 5.1 x 2.8 x 2.4 cm, and is homogeneous in echotexture. Nodule number: 1 Location: Right superior/mid Size: 3.0 x 2.1 x 1.9 cm Composition: Solid Echogenicity: Hypoechoic Shape: Wider than tall Margins: Irregular Echogenic foci: Punctate Total points: 9 ACR T I-RADS category: 5, highly suspicious 01 Sultana Jackson MD, Pathologist NPI- [id number] José Miguel Foster, [employer] (ASC) 01 30 CC, PINK, CLEAR RECIEVED: 5 ALCOHOL FIXED AND 5 QUICK STAINED SLIDES WITH 1 RNA VIAL FOR FURTHER TESTING. /VDU 12/29/2020 0642 Local FLAG LEGEND: L-Low Normal,H-High Normal,LL-Alert Low,HH-Alert High <-Panic Low,>-Panic High,A-Abnormal,AA-Critical Abnormal Performed at: 01 =Z [facility] [address] [place] [address] [address], [place] [address] Jose Gray MD, Performed at: [address] [facility] [address], [place], [place] [id number] MD Jose Gray MD Phone: [phone]
--- NOTE | 2020-12-28 12:41 | DI.US.S_ITS ---
PROCEDURE: US FINE NEEDLE ASPIRATION INDICATIONS: Two suspicious thyroid nodules TECHNIQUE: The indications, alternatives, benefits, risks, and complications of the procedure were explained to the patient. Written informed consent was obtained and placed in the chart. The thyroid region was examined sonographically and a site was chosen for ultrasound guided percutaneous sampling. The skin was prepared and draped in the usual fashion, and anesthetized with 1% lidocaine infiltrated from the skin down to the thyroid gland. Multiple passes were then performed, with contents emptied into an appropriate pathology specimen container. A bandage was applied to the area of access at completion of the study. COMPARISON: [facility], US, US THYROID, 11/23/2020, 10:28. FINDINGS: Location(s) of lesion(s) sampled: Right thyroid lobe [place]: 25 gauge hypodermic needles. Number of passes: 6 Medications: 1% lidocaine for local anaesthesia. Complications: None. IMPRESSION: 1. Successful ultrasound-guided thyroid nodule fine needle aspiration, with cytology results pending. Please see chart below for management recommendations based on cytology results. 2. The smaller nodule in the posterior mid right thyroid lobe is too deep, therefore, not amenable by fine needle aspiration. [place] [facility] ReportingRecommendationsNon-diagnostic* Repeat US-guided FNA, with on-site cytology evaluation if possible. * Repeated non-diagnostic nodules without high suspicion US features: close observation vs surgical consult. * Consider surgery if nodule has high suspicion US features, grows >20% in 2 dimensions on followup, or patient has clinical risk factors for malignancy. Benign* If nodule has high suspicion US features: repeat US and FNA within 12 months. * If nodule has low to intermediate suspicion US features: repeat US at 12-24 months. If nodule grows (20% increase in at least 2 dimensions, with minimal increase of 2 mm or >50% change in volume), or development of new suspicious US features, then repeat FNA or continue followup. * If nodule has very low suspicion US features: followup US at >24 months. Atypia of undetermined significance, follicular lesion of undetermined significanceRepeat FNA, molecular testing, followup US, or surgical consult.Follicular neoplasm, suspicious for follicular neoplasmSurgical consult; also consider molecular testing. Suspicious for malignancySurgical consult.MalignantSurgical consult. Dictated by: Aftab Miranda M.D. on 12/28/2020 at 16:36 Approved by: Aftab Miranda M.D. on 12/28/2020 at 16:39
== END ==
PROVIDERS: PCP Family Medicine; Referring Provider Family Medicine; Visit Provider Family Medicine
DX: E04.2 Nontoxic multinodular goiter (principal)
CPT/HCPCS: 10005

== ENCOUNTER → 2021-01-07 10:25 | Outpatient (CLI) | payer OTHER, SELFPAY ==
--- NOTE | 2021-01-07 11:01 | DI.CT.S_ITS ---
PROCEDURE: CT HEAD/BRAIN WO CON INDICATIONS: Presence of xenogenic heart valve TECHNIQUE: Noncontrast 4.5 mm thick angled axial sections acquired from the foramen magnum to the vertex, with coronal and sagittal reformats. For radiation dose reduction, the following was used: automated exposure control, adjustment of mA and/or kV according to patient size. COMPARISON: None. FINDINGS: Image quality: Excellent. CSF spaces: Basal cisterns are patent. No extra-axial fluid collections. Ventricles are normal in size and shape. Brain: No midline shift. No intracranial masses or hemorrhage. Daily-white matter interface is normal. Skull and face: Calvarium and visualized facial bones are intact, without suspicious lesions. Sinuses: Visualized sinuses and mastoids are clear. IMPRESSION: No acute intracranial finding. Dictated by: Lexx Hardin M.D. on 01/07/2021 at 11:08 Approved by: Lexx Hardin M.D. on 01/07/2021 at 11:09
== END ==
PROVIDERS: PCP Family Medicine; Referring Provider Internal Medicine Interventional Cardiology; Visit Provider Internal Medicine Interventional Cardiology
DX: Z09 Encounter for follow-up examination after completed treatment for conditions other than malignant neoplasm (principal); Z95.3 Presence of xenogenic heart valve
CPT/HCPCS: 70450

== ENCOUNTER → 2021-01-10 15:12 | Outpatient (CLI) | payer OTHER, SELFPAY ==
[2021-01-10 16:24] LABS: COVID19 -Nasal RAPID Negative (Negative)
== END ==
PROVIDERS: PCP Family Medicine; Visit Provider Physician Assistant
DX: Z20.822 Contact with and (suspected) exposure to COVID-19 (principal)
CPT/HCPCS: 87635

== ENCOUNTER 2021-01-12 10:30 | Outpatient (RCR) | payer OTHER, SELFPAY | END 2021-01-12 11:30 | LOC: CAR 10:30 | PROVIDERS: PCP Family Medicine; Referring Provider Internal Medicine Interventional Cardiology; Visit Provider Internal Medicine Interventional Cardiology | DX: Z95.2 Presence of prosthetic heart valve (principal) | CPT/HCPCS: 93798 ==

== ENCOUNTER → 2021-05-24 12:42 | Outpatient (CLI) | payer OTHER, SELFPAY ==
[2021-05-24 13:42] LABS: Hemoglobin A1C% w Est Avg Glu 10.1 % (4.0-6.0)
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
== END ==
PROVIDERS: PCP Family Medicine; Referring Provider Otolaryngology; Visit Provider Otolaryngology
DX: E04.1 Nontoxic single thyroid nodule (principal); E11.9 Type 2 diabetes mellitus without complications; Z79.4 Long term (current) use of insulin
CPT/HCPCS: 36415; 83036; 84443; 97802

== ENCOUNTER → 2021-05-24 12:45 | Outpatient (CLI) | payer OTHER, SELFPAY | PROVIDERS: PCP Family Medicine; Referring Provider Family Medicine; Visit Provider Family Medicine | DX: E11.9 Type 2 diabetes mellitus without complications (principal) ==

== ENCOUNTER → 2021-11-03 10:21 | Outpatient (CLI) | payer OTHER, SELFPAY ==
--- NOTE | 2021-11-03 10:22 | DI.US.S_ITS ---
PROCEDURE: US CAROTID DOPPLER BI INDICATIONS: Refractile plaque on eye exam TECHNIQUE: Color and pulse Doppler interrogation was performed of both carotid systems, with image documentation and velocity measurements. COMPARISON: [facility], , US THYROID, 11/23/2020, 10:28. [facility], , US CAROTID DOPPLER BI, 10/10/2019, 9:47. FINDINGS: Stenosis calculations are based on SRU (Society of Radiologists in Ultrasound) criteria. A right thyroid mass is unchanged in size compared to 11/23/2020 and is known and has been biopsied. Right side: Brachial blood pressure: 159/103 mm Hg. Common carotid artery peak systolic velocity: 82 cm/sec. Internal carotid artery peak systolic velocity: 99 cm/sec. Internal carotid artery end diastolic velocity: 20 cm/sec. External carotid artery peak systolic velocity: 58 cm/sec. ICA/CCA peak systolic ratio: 1.2 . Daily scale imaging description: The ICA is severely tortuous. There is mild diffuse plaque. Percent internal carotid artery stenosis: Less than 50 percent stenosis. Vertebral artery: Flow direction is antegrade. Left side: Brachial blood pressure: 157/104 mm Hg. Common carotid artery peak systolic velocity: 106 cm/sec. Internal carotid artery peak systolic velocity: 53 cm/sec. Internal carotid artery end diastolic velocity: 15 cm/sec. External carotid artery peak systolic velocity: 56 cm/sec. ICA/CCA peak systolic ratio: 0.5 . Daily scale imaging description: The ICA is severely tortuous. There is mild diffuse plaque. Percent internal carotid artery stenosis: Less than 50 percent stenosis. Vertebral artery: Flow direction is antegrade. IMPRESSION: Diffuse atherosclerotic plaque with less than 50 percent stenosis by velocity/ratio criteria. Dictated by: Anupam Scott M.D. on 11/03/2021 at 18:49 Approved by: Anupam Scott M.D. on 11/03/2021 at 18:53
== END ==
PROVIDERS: PCP Family Medicine; Referring Provider Family Medicine; Visit Provider Family Medicine
DX: I25.10 Atherosclerotic heart disease of native coronary artery without angina pectoris (principal); I35.0 Nonrheumatic aortic (valve) stenosis; T82.897A Other specified complication of cardiac prosthetic devices, implants and grafts, initial encounter; I65.23 Occlusion and stenosis of bilateral carotid arteries
CPT/HCPCS: 93880

== ENCOUNTER 2022-03-22 10:10 | Emergency (ER) | payer OTHER, SELFPAY ==
[2022-03-22] VITALS (13 sets, daily range): BP systolic 115–122; BP diastolic 57–65; PULSE 62–68; RESP 16; TEMP 37.1; O2SAT 97–100
--- NOTE | 2022-03-22 11:00 | ED_ITS ---
HPI - General Adult General Chief complaint: Diabetic Problem Stated complaint: Hypoglycemia Time Seen by Provider: 03/22/22 10:57 Source: patient and EMS Mode of arrival: EMS Limitations: no limitations History of Present Illness HPI narrative: This is a 71-year-old female insulin-dependent diabetic, with history of coronary artery disease, hypertension, dyslipidemia, atrial fibrillation and aortic stenosis. Lantus and short-acting insulin who is brought for hypoglycemia. Patient states that her neighbor usually comes over to help her. She felt normal last night but was confused, repetitive and found to have her glucose low and was 40-50 with EMS this morning. They gave her dextrose IV and patient's blood sugar improved and her mentation improved as well. She was very unsure if she had taken her insulin today, she states she had not eaten anything this morning. She felt dizzy. She states she felt fine last night. She denies any chest pain or shortness of breath currently, no nausea or vomiting, no abdominal pain, no back or neck pain, patient denies any dysuria, urgency or frequency or diarrhea constipation. She was complaining of a headache earlier which is still present, she does not feel dizzy at this time. Glucoses have been up to 160 on repeat or 70 but patient has not been eating much in the department. Related Data Home Medications Medication Instructions Recorded Confirmed apixaban 5 mg tablet (Eliquis) 5 mg PO BID 09/24/19 04/29/21 losartan 50 mg-hydrochlorothiazide 1 tab PO DAILY 09/24/19 04/29/21 12.5 mg tablet Previous Rx's Medication Instructions Recorded triamcinolone acetonide 0.1 % 1 applictn topical BID #80 grams 07/08/18 topical cream nitroglycerin 0.4 mg sublingual 0.4 mg sublingual Q5-15M PRN chest 09/26/18 tablet pain #90 tabs amiodarone 200 mg tablet 200 mg PO DAILY #90 tabs 11/12/18 metoprolol tartrate 50 mg tablet 50 mg PO BID #180 tabs 05/26/19 metformin 500 mg tablet See Rx Instructions .Route 11/04/19 .COMPLEX #360 tabs atorvastatin 80 mg tablet See Rx Instructions .Route 11/17/19 .COMPLEX #90 tabs clopidogrel 75 mg tablet 75 mg PO DAILY #90 tabs 12/24/19 Parking Permit... #1 ea 09/08/20 insulin glargine 100 unit/mL (3 35 unit (0.35 mL) SUBCUT BID #15 mL 03/21/21 mL) subcutaneous pen (Lantus Solostar U-100 Insulin) liraglutide 0.6 mg/0.1 mL (18 mg/3 See Rx Instructions .Route 04/29/21 mL) subcutaneous pen injector .COMPLEX #9 mL (Victoza 3-Forest) blood sugar diagnostic (Blood #100 ea 10/03/21 Glucose Test) insulin lispro 100 unit/mL 1 sliding scale dose SUBCUT 11/01/21 subcutaneous pen (Humalog KwikPen USEASDIRECTD #15 mL (U-100) Insulin) pen needle, diabetic 29 gauge x #100 ea 03/09/2210/16 (Comfort EZ Pen Deadwood) Allergies Allergy/AdvReac Type Severity Reaction Status Date / Time Sulfa (Sulfonamide Allergy Mild RASH Verified 04/29/21 13:43 Antibiotics) Review of Systems Review of Systems ROS Unobtainable: All systems reviewed & are unremarkable except as noted in HPI and below Patient History Medical History Colon polyps (08/31/14) Coronary artery disease Diabetes mellitus (~2011) Hypertension (~2011) Incontinence Knee osteoarthritis Osteopenia (05/20/14) Recent heart attack Rheumatoid arthritis Thyroid nodule Surgical History Anesthesia History of bilateral knee replacement (2009) History of colonoscopy with polypectomy (08/31/14) History of knee replacement History of knee replacement History of left cataract surgery (03/23/15) History of right cataract surgery (04/06/15) Status post delivery (12/21/78) Family History Brother Drowning Father Heart disease Mother Diabetes mellitus Sister Bone cancer Sister Bone cancer Social History marital status: household members: none Smoking Status: Never smoker alcohol intake: current substance use type: does not use Smoking Status: Never smoker Exam Narrative Exam Narrative: GEN: well nourished, well appearing female, alert and oriented x 3, patient appears to be in mild distress. HEENT: Atraumatic, pupils are equal round reactive to light, extraocular movements are intact, nares are clear, TMs are clear with no fluid, there is no conjunctival pallor. Throat is clear without any exudates, erythema, tonsillar enlargement or uvular deviation HEART: Regular rate and rhythm without murmur, clicks, rubs. LUNGS:Lungs clear to auscultation, no wheezes, rales, crackles, chest moves symmetrically ABD:bowel sounds normal, soft, non-tender, no guarding, rebound, rigidity, no masses noted, no hepatosplenomegaly :No CVA tenderness, [male/female exam] MSCL: Non-tender, no muscle atrophy, muscles strength 5/5 upper and lower extremities, full range of motion, normal gait NEURO:CN 2-12 intact, sensation normal SKIN: No rash, erythema or other skin changes Initial Vital Signs Initial Vital Signs: Vital Signs Temperature 98.7 F 03/22/22 10:16 Pulse Rate 62 03/22/22 10:16 Respiratory Rate 16 03/22/22 10:16 Blood Pressure 120/58 L 03/22/22 10:16 Pulse Oximetry 99 03/22/22 10:16 Oxygen Delivery Method 03/22/22 10:16 Course Orders Ordered: ED Orders 03/22/22 10:20 BNP [NT-proBNP (BNP-Adult 18+)] Stat COVID19 -Nasal RAPID/Pre-Proc Stat Complete Blood Count AUTO DIFF Stat Comprehensive Metabolic Panel Stat Partial Thromboplastin Time Stat Prothrombin Time INR Stat Troponin & CK Cardiac Panel Stat 03/22/22 11:12 EKG-12 Lead Stat 03/22/22 11:31 CT head/brain wo con Stat Chest [XR chest 1V] Stat Vital Signs Vital signs: Vital Signs - 8 hr 03/22/22 10:16 03/22/22 10:19 03/22/22 10:20 Temperature 98.7 F Pulse Rate 62 64 65 Respiratory Rate 16 Blood Pressure 120/58 L 115/57 L Pulse Oximetry 99 99 99 03/22/22 10:30 03/22/22 11:00 03/22/22 11:30 Temperature Pulse Rate 63 65 65 Respiratory Rate Blood Pressure 115/59 L 122/57 L Pulse Oximetry 97 98 99 03/22/22 11:52 03/22/22 12:00 Temperature Pulse Rate 65 65 Respiratory Rate Blood Pressure 120/58 L 122/58 L Pulse Oximetry 99 98 Medical Decision Making Lab Data Result diagrams: 03/22/22 10:20 03/22/22 10:20 Labs: Lab Results 03/22/22 03/22/22 03/22/22 Range/Units 10:20 10:20 10:20 WBC 11.7 H (4.5-11.0) X10^3/uL RBC 4.08 (4.0-5.2) X10^6/uL Hgb 11.7 L (12.0-16.0) g/dL Hct 34.8 L (36-46) % MCV 85.3 (80-100) fL MCH 28.6 (26-34) PG MCHC 33.5 (30-36) % RDW 14.5 (11.6-14.8) % Plt Count 251 (150-400) X10^3/uL Neut % (Auto) 80.1 H (50-75) % Lymph % (Auto) 11.1 L (25-40) % Bonner % (Auto) 6.8 (3-14) % Eos % (Auto) 1.4 L (2-4) % Baso % (Auto) 0.6 (0-2) % Neut # (Auto) 9400 H (1703-9613) /uL Lymph # (Auto) 1300 (5000-5211) /uL Bonner # (Auto) 800 (0-900) /uL Eos # (Auto) 200 (0-450) /uL Baso # (Auto) 100 (0-100) /uL PT 11.8 (10.1-12.7) SECONDS INR 1.1 (0.9-1.3) APTT 29 (26.4-36.2) SECONDS Sodium (137-145) mmol/L Potassium (3.4-5.1) mmol/L Chloride (98-107) mmol/L Carbon Dioxide (22-32) mmol/L BUN (7-17) mg/dL Creatinine (0.52-1.04) mg/dL Estimated GFR (>60) mL/min BUN/Creatinine Ratio (6-22) Glucose (80-110) mg/dL Calcium (8.4-10.2) mg/dL Total Bilirubin (0.2-1.3) mg/dL AST (14-36) IU/L ALT (<35) IU/L Alkaline Phosphatase (38-126) U/L Total Creatine Kinase (30-135) U/L CK-MB (CK-2) CK-MB (CK-2) Rel Index Troponin I (0.01-0.034) ng/mL NT-Pro-B Natriuret Pep (<125) pg/mL Total Protein (6.3-8.2) g/dL Albumin (3.5-5.0) g/dL Globulin (1.7-4.1) g/dL Albumin/Globulin Ratio (1.0-2.8) SARS-CoV-2 (PCR) Negative (Negative) 03/22/22 03/22/22 03/22/22 Range/Units 10:20 10:20 10:20 WBC (4.5-11.0) X10^3/uL RBC (4.0-5.2) X10^6/uL Hgb (12.0-16.0) g/dL Hct (36-46) % MCV (80-100) fL MCH (26-34) PG MCHC (30-36) % RDW (11.6-14.8) % Plt Count (150-400) X10^3/uL Neut % (Auto) (50-75) % Lymph % (Auto) (25-40) % Bonner % (Auto) (3-14) % Eos % (Auto) (2-4) % Baso % (Auto) (0-2) % Neut # (Auto) (7406-4475) /uL Lymph # (Auto) (4867-8285) /uL Bonner # (Auto) (0-900) /uL Eos # (Auto) (0-450) /uL Baso # (Auto) (0-100) /uL PT (10.1-12.7) SECONDS INR (0.9-1.3) APTT Cancelled (26.4-36.2) SECONDS Sodium 136 L (137-145) mmol/L Potassium 4.1 (3.4-5.1) mmol/L Chloride 100 (98-107) mmol/L Carbon Dioxide 25 (22-32) mmol/L BUN 28 H (7-17) mg/dL Creatinine 0.88 (0.52-1.04) mg/dL Estimated GFR > 60 (>60) mL/min BUN/Creatinine Ratio 31.8 H (6-22) Glucose 199 H (80-110) mg/dL Calcium 8.5 (8.4-10.2) mg/dL Total Bilirubin 0.5 (0.2-1.3) mg/dL AST 20 (14-36) IU/L ALT 19 (<35) IU/L Alkaline Phosphatase 55 (38-126) U/L Total Creatine Kinase 38 (30-135) U/L CK-MB (CK-2) TNP CK-MB (CK-2) Rel Index TNP Troponin I < 0.012 (0.01-0.034) ng/mL NT-Pro-B Natriuret Pep 755 H (<125) pg/mL Total Protein 7.0 (6.3-8.2) g/dL Albumin 3.7 (3.5-5.0) g/dL Globulin 3.3 (1.7-4.1) g/dL Albumin/Globulin Ratio 1.1 (1.0-2.8) SARS-CoV-2 (PCR) (Negative) Point of Care Testing Glucose POC 168 Point of care testing: Point of Care Testing Glucose POC 168 ECG Data Attestation: I personally reviewed and interpreted this ECG as follows: Prior ECG tracings: available for review Interpretation: Sinus rhythm rate of 66 OK 182 QRS is 92 QTC 545. Patient has prior from 09/24/2019. No acute changes. MDM Narrative Medical decision making narrative: This is a 71-year-old female who presents for hypoglycemia, patient was altered found home by her neighbor quite confused patient's son prevented to the department and noted that she did have her insulin this morning when he was leaving for work. This morning patient does not recall, but patient's glucose was quite low in the 40s and she had not eaten anything this morning prior to be evaluated by neighbor or EMS. Patient's workup does show what appears to be old stroke on her head CT, her and her son state that she had stroke-like symptoms remotely and on evaluation of her medication list appears she is currently appropriately anticoagulated but needs follow-up with primary care for this. Patient did not have any persistent lows, she was able to eat here in the department with no other acute causes found to be altering her glucose. Discussed with patient and family about either moving her insulin to location that the neighbor who comes daily to check on her can help with administration or making sure she has eaten before taking her insulin. All questions answered patient and son both feel quite comfortable with this plan. Discharge Plan Departure Patient Disposition: Home Clinical Impression: Hypoglycemia Instructions: DI for Hypoglycemia Activity Restrictions/Additional Instructions: Your labs are reassuring today. Your imaging today shows an old stroke. You are currently on appropriate medication but should follow up with your physician to review your findings. Please call for an appointment. Make sure that you eat breakfast in the morning prior to taking your insulin. Please return for new or worsening symptoms, confusion, altered mental status, chest pain or shortness of breath, numbness, tingling or weakness or other new or concerning symptoms. Prescriptions: No Action triamcinolone acetonide 0.1 % cream 1 applictn Topical BID Qty: 80 2RF nitroglycerin 0.4 mg tablet, sublingual 0.4 mg SL Q5-15M PRN (Reason: chest pain) Qty: 90 11RF Rx Instructions: until response; do not exceed 3 doses per episode amiodarone 200 mg tablet 200 mg PO DAILY Qty: 90 3RF metoprolol tartrate 50 mg tablet 50 mg PO BID Qty: 180 3RF metformin 500 mg tablet See Rx Instructions .ROUTE .COMPLEX Qty: 360 2RF Dose Instruction: TAKE TWO TABLETS BY MOUTH TWICE DAILY Rx Instructions: TAKE TWO TABLETS BY MOUTH TWICE DAILY atorvastatin 80 mg tablet See Rx Instructions .ROUTE .COMPLEX Qty: 90 3RF Dose Instruction: Take one tablet by mouth at bedtime Rx Instructions: Take one tablet by mouth at bedtime clopidogrel 75 mg tablet 75 mg PO DAILY Qty: 90 3RF Lantus Solostar U-100 Insulin 100 unit/mL (3 mL) insulin pen 35 unit SUBCUT BID Qty: 15 3RF (DME) Blood Glucose Test Strip See Rx Instructions .ROUTE .MEDSUPPLY Qty: 100 3RF Rx Instructions: Use to test blood sugars daily. insulin lispro [Humalog KwikPen Insulin] 100 unit/mL insulin pen 1 sliding scale dose SUBCUT USEASDIRECTD Qty: 15 3RF Rx Instructions: slide scale 2-14 units SQ TID (DME) pen needle, diabetic [Comfort EZ Pen Deadwood] 29 gauge x 1/2 needle See Rx Instructions .ROUTE .MEDSUPPLY Qty: 100 3RF Rx Instructions: use to check blood glucose 3x per day (DME) Parking Permit... See Rx Instructions .Route .MEDSUPPLY Qty: 1 0RF Rx Instructions: Patient meets criteria for permanent parking placard. Victoza 3-Forest 0.6 mg/0.1 mL (18 mg/3 mL) pen injector See Rx Instructions .ROUTE .COMPLEX Qty: 9 3RF Dose Instruction: INJECT 1.2MG SUBCUTANEOUSLY DAILY DO NOT EXCEED 1.8MG/DAILY Rx Instructions: INJECT 1.2MG SUBCUTANEOUSLY DAILY DO NOT EXCEED 1.8MG/DAILY losartan-hydrochlorothiazide 50-12.5 mg tablet 1 tab PO DAILY Eliquis 5 mg tablet 5 mg PO BID Referrals: Chino Ruggiero MD [Primary Care Provider] - Visit Report Forms: Patient Portal/API
[2022-03-22 11:05] LABS: COVID19 -Nasal RAPID Negative (Negative)
[2022-03-22 11:21] LABS: Add Manual Diff / Slide Review NO; Basophils Absolute Auto 100 /uL (0-100); Basophils Percent Auto 0.6 % (0-2); Eosinophils Absolute Auto 200 /uL (0-450); Eosinophils Percent Auto 1.4 % (2-4); Hematocrit 34.8 % (36-46); Hemoglobin 11.7 g/dL (12.0-16.0); Lymphocytes Absolute Auto 1300 /uL (1100-4500); Lymphocytes Percent Auto 11.1 % (25-40); Mean Corpuscular HGB Conc 33.5 % (30-36); Mean Corpuscular Hemoglobin 28.6 PG (26-34); Mean Corpuscular Volume 85.3 fL (80-100); Monocytes Absolute Auto 800 /uL (0-900); Monocytes Percent Auto 6.8 % (3-14); Neutrophils Absolute Auto 9400 /uL (1500-7000); Neutrophils Percent Auto 80.1 % (50-75); Platelet Count 251 X10^3/uL (150-400); Red Blood Cell Count 4.08 X10^6/uL (4.0-5.2); Red Cell Distribution Width 14.5 % (11.6-14.8); White Blood Cell Count 11.7 X10^3/uL (4.5-11.0)
--- NOTE | 2022-03-22 11:23 | PC.NURSE ---
Given apple juice and egg salad sandwich. Lunch tray ordered. Dr. Garibay aware of blood sugar still consistently declining.
[2022-03-22 11:25] LABS: INR 1.1 (0.9-1.3); Prothrombin Time 11.8 SECONDS (10.1-12.7)
[2022-03-22 11:28] LABS: PTT Partial Thromboplastin Tim 29 SECONDS (26.4-36.2)
--- NOTE | 2022-03-22 11:31 | DI.CT.S_ITS ---
PROCEDURE: CT HEAD/BRAIN WO CON INDICATIONS: hypoglycemia, dizziness TECHNIQUE: Noncontrast 4.5 mm thick angled axial sections acquired from the foramen magnum to the vertex, with coronal and sagittal reformats. For radiation dose reduction, the following was used: automated exposure control, adjustment of mA and/or kV according to patient size. COMPARISON: [facility], MR, MR STROKE, 10/17/2019, 9:33. [facility], CT, CT HEAD/BRAIN WO CON, 09/24/2019, 16:07. [facility], CT, CT HEAD/BRAIN WO CON, 01/07/2021, 11:00. FINDINGS: Image quality: Excellent. CSF spaces: Basal cisterns are patent. No extra-axial fluid collections. The ventricles are stable, with ex vacuo dilatation of the right lateral ventricle. Brain: No intracranial bleeds or masses. There is cerebral volume loss for age, with resultant ventricular and sulcal prominence. There are periventricular and deep white matter chronic small vessel ischemic changes. Remote infarction can be seen involving the deep white matter of the right frontal lobe, with involvement of the basal ganglia. A focal low-density region is also seen involving the left splenium of the corpus callosum, as on series 2, image 17 and on series 4, image 28. There is intracranial internal carotid artery atherosclerosis. Skull and face: Calvarium and visualized facial bones appear intact, without suspicious lesions. Sinuses: Visualized sinuses and mastoids are clear. 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 There is associated ex vacuo dilatation the right lateral ventricle. This is not considered to be an acute abnormality. A focal area of low density is also seen involving the left splenium the corpus callosum, which is also attributed to a remote infarct. If there is strong clinical suspicion for an acute stroke, please consider a brain MRI for further evaluation, as it is more sensitive (assuming that there is no contraindication to MRI). Dictated by: Marvel Roa M.D. on 03/22/2022 at 10:51 Approved by: Marvel Roa M.D. on 03/22/2022 at 10:54
--- NOTE | 2022-03-22 11:31 | DI.RAD.S_ITS ---
PROCEDURE: XR CHEST 1V INDICATIONS: hypoglycemia, dizziness TECHNIQUE: One view of the chest was acquired. COMPARISON: [facility], CR, XR CHEST 1V, 09/24/2019, 16:04. FINDINGS: Surgical changes and devices: None. Lungs and pleura: Lungs are clear. No pleural effusions or pneumothorax. Mediastinum: Mediastinal contours appear normal. Heart size is enlarged. Bones and chest wall: No suspicious bony lesions. Overlying soft tissues appear unremarkable. IMPRESSION: 1. No acute process. 2. Cardiomegaly. This could be further assessed with echocardiography, if clinically indicated. Dictated by: Cindi Reese M.D. on 03/22/2022 at 11:55 Approved by: Cindi Reese M.D. on 03/22/2022 at 11:56
[2022-03-22 11:38] LABS: Alanine Aminotransferase 19 IU/L (<35); Albumin 3.7 g/dL (3.5-5.0); Albumin Globulin Ratio 1.1 (1.0-2.8); Alkaline Phosphatase 55 U/L (38-126); Aspartate Aminotransferase 20 IU/L (14-36); BUN Creatinine Ratio 31.8 (6-22); Bilirubin Total 0.5 mg/dL (0.2-1.3); Blood Urea Nitrogen 28 mg/dL (7-17); Calcium 8.5 mg/dL (8.4-10.2); Carbon Dioxide 25 mmol/L (22-32); Chloride 100 mmol/L (98-107); Estimated Glomerular Filt Rate > 60 mL/min (>60); Globulin 3.3 g/dL (1.7-4.1); Glucose 199 mg/dL (80-110); HEMOLYSIS < 15 (0-50); Potassium 4.1 mmol/L (3.4-5.1); Sodium 136 mmol/L (137-145)
[2022-03-22 12:05] LABS: Creatine Kinase 38 U/L (30-135)
[2022-03-22 12:18] LABS: NT-proBNP (BNP-Adult 18+) 755 pg/mL (<125); Troponin I < 0.012 ng/mL (0.01-0.034)
== END 2022-03-22 14:43 | disposition home or self-care (01) ==
PROVIDERS: Emergency Provider Emergency Medicine; PCP Family Medicine
DX: E11.649 Type 2 diabetes mellitus with hypoglycemia without coma (principal); R42 Dizziness and giddiness; Z20.822 Contact with and (suspected) exposure to COVID-19
CPT/HCPCS: 70450; 71045; 80053; 82550; 82962; 83880; 84484; 85025; 85610; 85730; 87635; 93005; 93010; 99283; 99284; C9803

== ENCOUNTER → 2022-04-19 08:42 | Outpatient (CLI) | payer OTHER, SELFPAY ==
[2022-04-19 10:09] LABS: Add Manual Diff / Slide Review NO; Alanine Aminotransferase 15 IU/L (<35); Albumin Globulin Ratio 1.3 (1.0-2.8); Alkaline Phosphatase 59 U/L (38-126); Aspartate Aminotransferase 16 IU/L (14-36); BUN Creatinine Ratio 33.3 (6-22); Basophils Absolute Auto 100 /uL (0-100); Basophils Percent Auto 0.7 % (0-2); Bilirubin Total 0.4 mg/dL (0.2-1.3); Blood Urea Nitrogen 31 mg/dL (7-17); Carbon Dioxide 29 mmol/L (22-32); Chloride 102 mmol/L (98-107); Cholesterol 132 mg/dL (140-199); Eosinophils Absolute Auto 200 /uL (0-450); Eosinophils Percent Auto 2.2 % (2-4); Estimated Glomerular Filt Rate > 60 mL/min (>60); Globulin 3.2 g/dL (1.7-4.1); Glucose 189 mg/dL (80-110); HDL Cholesterol 46 mg/dL (40-60); HEMOLYSIS < 15 (0-50); Hematocrit 35.6 % (36-46); Hemoglobin 12.1 g/dL (12.0-16.0); LDL Cholesterol Calculated 71 mg/dL (<100); Lymphocytes Absolute Auto 1900 /uL (1100-4500); Lymphocytes Percent Auto 19.8 % (25-40); Mean Corpuscular Volume 85.2 fL (80-100); Monocytes Absolute Auto 800 /uL (0-900); Monocytes Percent Auto 8.8 % (3-14); Neutrophils Absolute Auto 6400 /uL (1500-7000); Neutrophils Percent Auto 68.5 % (50-75); Platelet Count 233 X10^3/uL (150-400); Potassium 4.7 mmol/L (3.4-5.1); Red Blood Cell Count 4.17 X10^6/uL (4.0-5.2); Red Cell Distribution Width 14.2 % (11.6-14.8); Sodium 137 mmol/L (137-145); Total Protein 7.2 g/dL (6.3-8.2); Triglycerides 77 mg/dL (35-150); White Blood Cell Count 9.4 X10^3/uL (4.5-11.0)
[2022-04-19 10:13] LABS: Hemoglobin A1C% w Est Avg Glu 7.4 % (4.0-6.0)
[2022-04-19 11:01] LABS: TSH w/ Reflex to FT4 3.08 uIU/mL (0.47-4.68)
== END ==
PROVIDERS: PCP Family Medicine; Referring Provider Family Medicine; Visit Provider Family Medicine
DX: E11.9 Type 2 diabetes mellitus without complications (principal); G45.9 Transient cerebral ischemic attack, unspecified; I10 Essential (primary) hypertension; I25.10 Atherosclerotic heart disease of native coronary artery without angina pectoris; Z79.4 Long term (current) use of insulin; E78.5 Hyperlipidemia, unspecified
CPT/HCPCS: 36415; 80053; 80061; 83036; 84443; 85025

== ENCOUNTER → 2022-05-30 10:02 | Outpatient (CLI) | payer OTHER, SELFPAY ==
--- NOTE | 2022-05-30 10:05 | DI.MG.S_ITS ---
BILATERAL DIGITAL DIAGNOSTIC MAMMOGRAM 3D/2D: 05/30/2022 CLINICAL: Short follow up, due bilateral. Comparison is made to exams dated: 08/12/2020 mammogram, 12/31/2019 mammogram, 05/15/2019 mammogram, 11/15/2018 mammogram, 08/29/2018 mammogram, and 05/21/2017 mammogram - [facility]. There are scattered fibroglandular elements in both breasts. There are benign linear fine pleomorphic calcifications in the left breast at 2 o'clock middle depth. These are seen in additional views. These are not significantly changed. There is a biopsy clip associated with the calcifications. No other significant masses, calcifications, or other findings are seen in either breast. IMPRESSION: BENIGN There is no mammographic evidence of malignancy. A 1 year screening mammogram is recommended. Based on the Tyrer Cuzick model (a risk assessment model) the patient's lifetime risk is 4.0% and her 10 year risk is 2.4%. According to the ACR, ACS, and NCCN guidelines, an annual breast MRI exam along with mammogram is recommended if the patient's lifetime risk is 20% or greater. This exam was interpreted at Station ID: [id number]. NOTE: For mammograms, a report in lay terms will be sent to the patient. Approximately 15% of breast malignancies will not be visualized mammographically. In the management of a palpable breast mass, a negative mammogram must not discourage biopsy of a clinically suspicious lesion. Electronically Signed By: Anupam Scott acr/trixie:05/30/2022 11:40:02 copy to: Jyotsna West letter sent: Normal Exam ACR BI-RADS Category 2: Benign Finding(s) [id number]
== END ==
PROVIDERS: PCP Family Medicine; Referring Provider Family Medicine; Visit Provider Family Medicine
DX: R92.8 Other abnormal and inconclusive findings on diagnostic imaging of breast (principal); R92.1 Mammographic calcification found on diagnostic imaging of breast
CPT/HCPCS: 77066; G0279

== ENCOUNTER → 2022-09-21 07:13 | Outpatient (CLI) | payer OTHER, SELFPAY ==
[2022-09-21 08:11] LABS: Hemoglobin A1C% w Est Avg Glu 8.6 % (4.0-6.0)
[2022-09-21 08:28] LABS: Alanine Aminotransferase 18 IU/L (<35); Albumin Globulin Ratio 1.2 (1.0-2.8); Alkaline Phosphatase 67 U/L (38-126); Aspartate Aminotransferase 14 IU/L (14-36); Bilirubin Total 0.3 mg/dL (0.2-1.3); Blood Urea Nitrogen 31 mg/dL (7-17); Calcium 9.4 mg/dL (8.4-10.2); Carbon Dioxide 24 mmol/L (22-32); Chloride 99 mmol/L (98-107); Estimated Glomerular Filt Rate > 60 mL/min (>60); Globulin 3.3 g/dL (1.7-4.1); Glucose 340 mg/dL (80-110); HEMOLYSIS < 15 (0-50); Potassium 4.6 mmol/L (3.4-5.1); Sodium 137 mmol/L (137-145); Total Protein 7.3 g/dL (6.3-8.2)
[2022-09-21 08:38] LABS: Creatinine Urine Random 75.7 mg/dL
[2022-09-21 08:43] LABS: Microalbumi Creatinin Ratio Ur 38.3 ug/mg CR (<30); Microalbumin Urine Random 2.9 mg/dL (0-1.6)
== END ==
PROVIDERS: PCP Family Medicine; Referring Provider Family Medicine; Visit Provider Family Medicine
DX: E11.9 Type 2 diabetes mellitus without complications (principal); E78.5 Hyperlipidemia, unspecified; I10 Essential (primary) hypertension; I25.10 Atherosclerotic heart disease of native coronary artery without angina pectoris; Z79.4 Long term (current) use of insulin
CPT/HCPCS: 36415; 80053; 82043; 82570; 83036

== ENCOUNTER → 2023-03-28 07:27 | Outpatient (CLI) | payer OTHER, SELFPAY ==
[2023-03-28 09:07] LABS: Alanine Aminotransferase 16 IU/L (<35); Albumin 4.1 g/dL (3.5-5.0); Albumin Globulin Ratio 1.1 (1.0-2.8); Alkaline Phosphatase 65 U/L (38-126); Aspartate Aminotransferase 16 IU/L (14-36); BUN Creatinine Ratio 24.2 (6-22); Bilirubin Total 0.4 mg/dL (0.2-1.3); Blood Urea Nitrogen 30 mg/dL (7-17); Calcium 9.2 mg/dL (8.4-10.2); Carbon Dioxide 28 mmol/L (22-32); Chloride 98 mmol/L (98-107); Cholesterol 157 mg/dL (140-199); Estimated Glomerular Filt Rate 47 mL/min (>60); Globulin 3.6 g/dL (1.7-4.1); Glucose 186 mg/dL (80-110); HDL Cholesterol 37 mg/dL (40-60); HEMOLYSIS < 15 (0-50); LDL Cholesterol Calculated 84 mg/dL (<100); Potassium 4.8 mmol/L (3.4-5.1); Sodium 136 mmol/L (137-145); Total Protein 7.7 g/dL (6.3-8.2); Triglycerides 182 mg/dL (35-150)
[2023-03-28 09:31] LABS: TSH w/ Reflex to FT4 3.27 uIU/mL (0.47-4.68)
[2023-03-28 16:19] LABS: Creatinine Urine Random 89.3 mg/dL
[2023-03-28 16:22] LABS: Microalbumi Creatinin Ratio Ur 55.9 ug/mg CR (<30)
[2023-03-29 05:53] LABS: Labcorp Hemoglobin (Hb) A1c 7.8 % (4.8-5.6)
== END ==
PROVIDERS: PCP Family Medicine; Referring Provider Family Medicine; Visit Provider Family Medicine
DX: E04.1 Nontoxic single thyroid nodule; E11.9 Type 2 diabetes mellitus without complications; E66.9 Obesity, unspecified; E78.2 Mixed hyperlipidemia; I35.0 Nonrheumatic aortic (valve) stenosis; Z79.4 Long term (current) use of insulin; I10 Essential (primary) hypertension
CPT/HCPCS: 36415; 80053; 80061; 82043; 82570; 83036; 84443

== ENCOUNTER → 2023-04-10 09:10 | Outpatient (CLI) | payer OTHER, SELFPAY | PROVIDERS: PCP Family Medicine; Referring Provider Nurse Practitioner Family; Visit Provider Surgery | DX: E11.628 Type 2 diabetes mellitus with other skin complications (principal); L89.310 Pressure ulcer of right buttock, unstageable | CPT/HCPCS: 99203; 99213 ==

== ENCOUNTER 2023-06-02 10:24 | Inpatient (IN) | payer OTHER, SELFPAY ==
[2023-06-02] VITALS (26 sets, daily range): BP systolic 107–161; BP diastolic 48–80; PULSE 79–87; RESP 14–30; TEMP 36.2–36.8; O2SAT 95–100; BMI 42.5
[2023-06-02 11:01] LABS: Hematocrit 37.5 % (36-46); Hemoglobin 12.5 g/dL (12.0-16.0); Mean Corpuscular HGB Conc 33.3 % (30-36); Mean Corpuscular Hemoglobin 27.8 PG (26-34); Mean Corpuscular Volume 83.5 fL (80-100); Platelet Count 312 X10^3/uL (150-400); Red Blood Cell Count 4.49 X10^6/uL (4.0-5.2); Red Cell Distribution Width 14.5 % (11.6-14.8); White Blood Cell Count 26.5 X10^3/uL (4.5-11.0)
[2023-06-02 11:02] LABS: Add Manual Diff / Slide Review YES
--- NOTE | 2023-06-02 11:05 | PC.NURSE ---
GROUP ACCOUNT DIRECTOR Note - Patient changed out of wet brief and removed wet bed sheets. Clean sheets placed, new brief put into place. [place] put into place as well.
[2023-06-02 11:06] LABS: Alanine Aminotransferase 20 IU/L (<35); Albumin 4.1 g/dL (3.5-5.0); Alkaline Phosphatase 73 U/L (38-126); Aspartate Aminotransferase 23 IU/L (14-36); BUN Creatinine Ratio 27.7 (6-22); Bilirubin Total 0.7 mg/dL (0.2-1.3); Blood Urea Nitrogen 31 mg/dL (7-17); Calcium 9.3 mg/dL (8.4-10.2); Carbon Dioxide 28 mmol/L (22-32); Chloride 100 mmol/L (98-107); Estimated Glomerular Filt Rate 53 mL/min (>60); Globulin 4.2 g/dL (1.7-4.1); Glucose 308 mg/dL (80-110); HEMOLYSIS < 15 (0-50); Lipase 63 U/L (23-300); Potassium 4.4 mmol/L (3.4-5.1); Sodium 138 mmol/L (137-145); Total Protein 8.3 g/dL (6.3-8.2)
[2023-06-02 11:33] LABS: Appearance Urine UA CLOUDY; Bilirubin Urine UA NEGATIVE (NEGATIVE); Color Urine UA YELLOW; Glucose Urine UA NEGATIVE (Negative); Ketones Urine UA NEGATIVE (NEGATIVE); Leukocyte Esterase Urine UA TRACE (NEGATIVE); Nitrite Urine UA POSITIVE (Negative); Occult Blood Urine UA 3+ (Negative); Protein Urine UA 2+ (Negative)
[2023-06-02 11:53] LABS: Neutrophils Absolute Manual 24910 /uL (3000-5900); RBC Morphology Normal Morphology; Total Cells Counted 100
--- NOTE | 2023-06-02 12:00 | ED.ABDPAIN ---
HPI - Abdominal Pain General Chief Complaint: Weakness Stated Complaint: RLQ Pain, Weakness Time Seen by Provider: 06/02/23 11:09 Source: patient and EMS Mode of arrival: EMS History of Present Illness HPI narrative: Patient is a 72-year-old female history or coronary artery disease, insulin-dependent diabetes, hypertension, NSTEMI, on Eliquis presenting today with right lower quadrant pain. She reports she is had decreased appetite over the last day or so and today having increased pain. She reports that it hurts to cough and the ambulance ride over hurt as well. She denies any fever or chills no nausea or vomiting. No chest pain or shortness of breath. Related Data Home Medications Medication Instructions Recorded Confirmed losartan 50 mg-hydrochlorothiazide 1 tab PO DAILY 09/24/19 06/02/23 12.5 mg tablet atorvastatin 80 mg tablet (Lipitor) 80 mg PO QPM 06/02/23 06/02/23 clopidogrel 75 mg tablet 75 mg PO QAM 06/02/23 06/02/23 insulin glargine 100 unit/mL (3 40 unit SUBCUT QA 06/02/23 06/02/23 mL) subcutaneous pen (Lantus Solostar U-100 Insulin) metformin 500 mg tablet 1,000 mg PO QAM 06/02/23 06/02/23 Previous Rx's Medication Instructions Recorded metoprolol tartrate 50 mg tablet 50 mg PO BID #180 tabs 05/26/19 Parking Permit... #1 ea 09/08/20 pen needle, diabetic 29 gauge x #100 ea 03/09/22/ (Comfort EZ Pen Ruffin) blood sugar diagnostic (True #100 strips 11/09/22 Metrix Glucose Test Strip) apixaban 5 mg tablet (Eliquis) 5 mg PO BID #180 tabs 04/12/23 insulin lispro 100 unit/mL 1 sliding scale dose SUBCUT 04/24/23 subcutaneous pen (Humalog KwikPen USEASDIRECTD #15 mL (U-100) Insulin) nitroglycerin 0.4 mg sublingual 0.4 mg sublingual Q5-15M PRN chest 04/24/23 tablet pain #90 tabs Allergies Allergy/AdvReac Type Severity Reaction Status Date / Time Sulfa (Sulfonamide Allergy Mild RASH Verified 04/24/23 14:44 Antibiotics) Review of Systems Review of Systems ROS Unobtainable: All systems reviewed & are unremarkable except as noted in HPI and below Patient History Medical History Abnormal mammogram of left breast Breast screening Colon polyps (08/31/14) Coronary artery disease Diabetes mellitus (~2011) Hyperlipidemia Hypertension (~2011) Incontinence Knee osteoarthritis NSTEMI (non-ST elevated myocardial infarction) (09/2018) Osteopenia (05/20/14) Recent heart attack Rheumatoid arthritis Sedentary lifestyle Stage II pressure ulcer of sacral region (~02/2023) Thyroid nodule Surgical History Anesthesia History of bilateral knee replacement (2009) History of colonoscopy with polypectomy (08/31/14) History of knee replacement History of knee replacement History of left cataract surgery (03/23/15) History of right cataract surgery (04/06/15) Status post delivery (12/21/78) Family History Brother Drowning Father Heart disease Mother Diabetes mellitus Sister Bone cancer Sister Bone cancer Social History marital status: household members: family and children Smoking Status: Never smoker alcohol intake: current substance use type: does not use Smoking Status: Never smoker alcohol intake frequency: holidays/special occasions only Substance Use Type: does not use Exam Initial Vital Signs Initial Vital Signs: Vital Signs Pulse Rate 87 06/02/23 10:32 Pulse Oximetry 98 06/02/23 10:32 GENERAL: Alert pleasant well-appearing 72-year-old female and in no acute distress. HEENT: Head atraumatic,EOMI, pupils reactive, face symmetric, moist mucous membranes CARDIOVASCULAR: Regular rate and rhythm without murmurs, rubs or gallops. RESPIRATORY: Breath sounds equal bilaterally, no wheezes rales or rhonchi. ABDOMEN: Soft, significant tenderness right lower quadrant guarding and rebound negative Jeffery sign no left lower quadrant : No CVA tenderness EXTREMITIES: Normal range of motion, no clubbing or edema. Neurovascularly intact NEUROLOGICAL: Alert and oriented x4.Normal gait and speech. SKIN: Warm, dry, no laceration, no petechiae, no rashes or lesions. Course Orders Ordered: ED Orders 06/02/23 10:37 EKG-12 Lead Stat 06/02/23 10:55 EKG-12 Lead Stat 06/02/23 10:57 Complete Blood Count AUTO DIFF Stat Comprehensive Metabolic Panel Stat Lactate (Lactic Acid) Stat Lipase Stat 06/02/23 11:20 Urinalysis and Microscopic Stat Urine Culture Stat 06/02/23 11:35 Blood Culture Stat 06/02/23 12:14 CT abdomen pelvis w con Stat Acetaminophen (Acetaminophen 325 Mg Tablet) 650 mg PO Q6H PRN PRN Reason: Fever/Mild Pain (1-3) Dextrose (Dextrose 50 % In Water 25 Gm/50 Ml Syringe) 25 gm IV PRN PRN PRN Reason: Hypoglycemia Sodium Chloride (Normal Saline 0.9%) 1,000 mls @ 125 mls/hr IV CONT RENY Last Admin: 06/02/23 15:41 Dose: 125 mls/hr Documented By: RB Piperacillin Sod/Tazobactam (Sod 3.375 gm/ Sodium Chloride) 100 mls @ 25 mls/hr IV Q8H [facility] Last Admin: 06/02/23 18:42 Dose: 25 mls/hr Documented By: AKP Insulin Glargine (Insulin Glargine 100 Unit/Ml 3ml Pen) 40 unit SUBCUT DAILY [facility] Insulin Human Lispro (Insulin Lispro 100 Unit/Ml 3ml Vial) 0 unit SUBCUT ACHS RENY; Protocol Metoprolol Tartrate (Metoprolol Ir 50 Mg Tablet) 50 mg PO BID RENY Morphine Sulfate (Morphine 2 Mg/Ml Inj) 2 mg IV Q4HR PRN PRN Reason: Pain, Moderate (4-6) Naloxone HCl (Naloxone 0.4 Mg/Ml Vial) 0.2 mg IV Q2MIN PRN PRN Reason: Opiate Reversal Ondansetron HCl (Ondansetron 4 Mg/2 Ml Inj) 4 mg IV Q8HR PRN PRN Reason: Nausea And Vomiting Oxycodone HCl (Oxycodone Ir 5 Mg Tablet) 5 mg PO Q3H PRN PRN Reason: Pain, Moderate (4-6) Discontinued Medications Sodium Chloride (Normal Saline 0.9%) 1,000 mls @ 1,000 mls/hr IV BOLUS ONE Stop: 06/02/23 13:18 Last Infusion: 06/02/23 14:12 Dose: 0 mls/hr Documented By: Infusion: 06/02/23 13:22 Dose: 999 mls/hr Documented By: Infusion: 06/02/23 13:10 Dose: 0 mls/hr Documented By: Admin: 06/02/23 12:38 Dose: 799 mls/hr Documented By: RB Ceftriaxone Sodium 2,000 mg/ (Sodium Chloride) 100 mls @ 200 mls/hr IV NOW ONE Stop: 06/02/23 12:20 Last Infusion: 06/02/23 13:10 Dose: 0 mls/hr Documented By: Admin: 06/02/23 12:38 Dose: 200 mls/hr Documented By: RB Metronidazole (Flagyl) 500 mg in 100 mls @ 100 mls/hr IV NOW ONE Stop: 06/02/23 15:57 Last Infusion: 06/02/23 16:34 Dose: 100 mls/hr Documented By: Admin: 06/02/23 15:34 Dose: 100 mls/hr Documented By: RB Piperacillin Sod/Tazobactam (Sod 3.375 gm/ Sodium Chloride) 100 mls @ 25 mls/hr IV Q8H RENY Morphine Sulfate (Morphine 4 Mg/Ml Inj) 4 mg IV NOW ONE Stop: 06/02/23 15:31 Last Admin: 06/02/23 15:42 Dose: 4 mg Documented By: RB Ondansetron HCl (Ondansetron 4 Mg/2 Ml Inj) 4 mg IV NOW PRN PRN Reason: Nausea And Vomiting Ondansetron HCl (Ondansetron 4 Mg Odt) 4 mg PO NOW PRN PRN Reason: Nausea And Vomiting Ondansetron HCl (Ondansetron 4 Mg/2 Ml Inj) 4 mg IV NOW ONE Stop: 06/02/23 15:31 Last Admin: 06/02/23 15:42 Dose: 4 mg Documented By: RB Vital Signs Vital signs: Vital Signs - 8 hr 06/02/23 11:22 06/02/23 11:22 06/02/23 11:30 Pulse Rate 86 85 Respiratory Rate 14 26 H Blood Pressure 142/65 H Pulse Oximetry 99 98 06/02/23 11:45 06/02/23 11:45 06/02/23 12:00 Pulse Rate 81 Respiratory Rate 19 Blood Pressure 122/55 L 134/63 Pulse Oximetry 99 06/02/23 12:00 06/02/23 12:15 06/02/23 12:15 Pulse Rate 82 83 Respiratory Rate 16 18 Blood Pressure 161/66 H Pulse Oximetry 99 99 06/02/23 12:30 06/02/23 12:30 06/02/23 12:45 Pulse Rate 82 Respiratory Rate 21 Blood Pressure 132/60 122/57 L Pulse Oximetry 100 06/02/23 12:45 06/02/23 13:00 06/02/23 13:00 Pulse Rate 85 83 Respiratory Rate 26 H 24 Blood Pressure 124/61 Pulse Oximetry 99 99 06/02/23 13:22 06/02/23 13:22 06/02/23 13:23 Pulse Rate 85 86 Respiratory Rate 14 18 Blood Pressure 125/61 Pulse Oximetry 100 100 06/02/23 13:23 06/02/23 13:30 06/02/23 13:30 Pulse Rate 85 Respiratory Rate 20 Blood Pressure 131/62 125/59 L Pulse Oximetry 99 06/02/23 13:45 06/02/23 13:45 06/02/23 14:00 Pulse Rate 85 Respiratory Rate 15 Blood Pressure 127/55 L 130/62 Pulse Oximetry 100 06/02/23 14:00 06/02/23 14:15 06/02/23 14:15 Pulse Rate 87 85 Respiratory Rate 23 18 Blood Pressure 129/56 L Pulse Oximetry 100 99 06/02/23 14:30 06/02/23 14:30 06/02/23 14:46 Pulse Rate 85 Respiratory Rate 17 Blood Pressure 137/63 130/60 Pulse Oximetry 99 06/02/23 14:46 06/02/23 15:00 06/02/23 15:00 Pulse Rate 87 85 Respiratory Rate 25 H 20 Blood Pressure 133/62 Pulse Oximetry 99 99 06/02/23 15:15 06/02/23 15:15 06/02/23 15:30 Pulse Rate 84 Respiratory Rate 21 Blood Pressure 130/59 L 115/57 L Pulse Oximetry 99 06/02/23 15:30 Pulse Rate 83 Respiratory Rate 30 H Blood Pressure Pulse Oximetry 100 MDM - Abdominal Pain Lab Data 06/02/23 10:57 06/02/23 10:57 Labs: Lab Results 06/02/23 06/02/2306/02/23 Range/Units 10:57 10:57 10:57 WBC 26.5 H (4.5-11.0) X10^3/uL RBC 4.49 (4.0-5.2) X10^6/uL Hgb 12.5 (12.0-16.0) g/dL Hct 37.5 (36-46) % MCV 83.5 (80-100) fL MCH 27.8 (26-34) PG MCHC 33.3 (30-36) % RDW 14.5 (11.6-14.8) % Plt Count 312 (150-400) X10^3/uL Neut % (Auto) Not Reportable Lymph % (Auto) Not Reportable [place] % (Auto) Not Reportable Eos % (Auto) Not Reportable Baso % (Auto) Not Reportable Lymph # (Auto) Not Reportable [place] # (Auto) Not Reportable Baso # (Auto) Not Reportable Total Counted 100 Seg Neutrophils % 92.0 H (38-70) % Band Neutrophils % 2.0 L (3-7) % Lymphocytes % (Manual) 5.0 L (25-45) % Monocytes % (Manual) 1.0 L (2-11) % Neutrophils # (Manual) 67500 H (3836-6819) /uL RBC Morphology Normal morphology Sodium 138 (137-145) mmol/L Potassium 4.4 (3.4-5.1) mmol/L Chloride 100 (98-107) mmol/L Carbon Dioxide 28 (22-32) mmol/L BUN 31 H (7-17) mg/dL Creatinine 1.12 H (0.52-1.04) mg/dL Estimated GFR 53 L (>60) mL/min BUN/Creatinine Ratio 27.7 H (6-22) Glucose 308 H (80-110) mg/dL Lactate 2.5 H (0.7-2.1) mmol/L Calcium 9.3 (8.4-10.2) mg/dL Total Bilirubin 0.7 (0.2-1.3) mg/dL AST 23 (14-36) IU/L ALT 20 (<35) IU/L Alkaline Phosphatase 73 (38-126) U/L Total Protein 8.3 H (6.3-8.2) g/dL Albumin 4.1 (3.5-5.0) g/dL Globulin 4.2 H (1.7-4.1) g/dL Albumin/Globulin Ratio 1.0 (1.0-2.8) Lipase 63 (23-300) U/L Urine Color Urine Appearance Urine pH (4.5-8.0) Ur Specific [place] (1.000-1.035) Urine Protein (Negative) Urine Glucose (UA) (Negative) g/dL Urine Ketones (NEGATIVE) Urine Occult Blood (Negative) Urine Nitrate (Negative) Urine Bilirubin (NEGATIVE) Urine Urobilinogen (0.2) E.U./dL Ur Leukocyte Esterase (NEGATIVE) Urine RBC (0-5/HPF) Urine WBC (0-5/HPF) Ur Squamous Epith Cells (0-5/HPF) Urine Bacteria (None) Ur Culture Indicated? 06/02/23 06/02/23 Range/Units 11:20 14:45 WBC (4.5-11.0) X10^3/uL RBC (4.0-5.2) X10^6/uL Hgb (12.0-16.0) g/dL Hct (36-46) % MCV (80-100) fL MCH (26-34) PG MCHC (30-36) % RDW (11.6-14.8) % Plt Count (150-400) X10^3/uL Neut % (Auto) Lymph % (Auto) [place] % (Auto) Eos % (Auto) Baso % (Auto) Lymph # (Auto) [place] # (Auto) Baso # (Auto) Total Counted Seg Neutrophils % (38-70) % Band Neutrophils % (3-7) % Lymphocytes % (Manual) (25-45) % Monocytes % (Manual) (2-11) % Neutrophils # (Manual) (5725-3006) /uL RBC Morphology Sodium (137-145) mmol/L Potassium (3.4-5.1) mmol/L Chloride (98-107) mmol/L Carbon Dioxide (22-32) mmol/L BUN (7-17) mg/dL Creatinine (0.52-1.04) mg/dL Estimated GFR (>60) mL/min BUN/Creatinine Ratio (6-22) Glucose (80-110) mg/dL Lactate 1.8 (0.7-2.1) mmol/L Calcium (8.4-10.2) mg/dL Total Bilirubin (0.2-1.3) mg/dL AST (14-36) IU/L ALT (<35) IU/L Alkaline Phosphatase (38-126) U/L Total Protein (6.3-8.2) g/dL Albumin (3.5-5.0) g/dL Globulin (1.7-4.1) g/dL Albumin/Globulin Ratio (1.0-2.8) Lipase (23-300) U/L Urine Color Yellow Urine Appearance Cloudy Urine pH 7.0 (4.5-8.0) Ur Specific [place] 1.020 (1.000-1.035) Urine Protein 2+ H (Negative) Urine Glucose (UA) Negative (Negative) g/dL Urine Ketones Negative (NEGATIVE) Urine Occult Blood 3+ H (Negative) Urine Nitrate Positive H (Negative) Urine Bilirubin Negative (NEGATIVE) Urine Urobilinogen 1.0 (0.2) E.U./dL Ur Leukocyte Esterase Trace H (NEGATIVE) Urine RBC 30-100/hpf H (0-5/HPF) Urine WBC 1-5/hpf (0-5/HPF) Ur Squamous Epith Cells None seen (0-5/HPF) Urine Bacteria Many (>30) H (None) Ur Culture Indicated? Specimen cultured Point of care testing: Point of Care Testing Glucose POC [address] scan - abdomen/pelvis: Radiologist's Impression: PROCEDURE:? CT ABDOMEN PELVIS W CON ? INDICATIONS:? RLQ pain ? TECHNIQUE:? After the administration of intravenous contrast, axial sections acquired from the lung bases to the pubic symphysis.? Coronal and sagittal reformats were performed.? For radiation dose reduction, the following was used:? automated exposure control, adjustment of mA and/or kV according to patient size.? ? COMPARISON:? None. ? FINDINGS: ? Lower thorax:? Aortic valve replacement noted.? Bibasilar atelectasis. ? Liver:? Normal in size and attenuation. No contour deformity present. ? Biliary system:? No calcified cholelithiasis or pericholecystic inflammation.? No intra or extrahepatic bile duct dilatation. ? Pancreas:? Unremarkable without mass or inflammation evident. ? Spleen:? Normal in size and density. ? Adrenals:? Normal morphology and density. ? Reproductive system:? Unremarkable as visualized. ? Urinary system:? Bilateral nonobstructing renal calculi present.? No hydronephrosis. ? Gastrointestinal system:? The bowel is unremarkable without evidence of bowel obstruction or inflammation. The stomach appears unremarkable. ? Appendix:? The appendix is hypervascular in slightly dilated at 10 cm. Periappendiceal inflammatory change present.? No abscess or free air.? No obstruction. ? Peritoneal spaces:? No mesenteric or retroperitoneal adenopathy.? No free air.? No free fluid.? ? Vasculature:? Aortic atherosclerotic vascular calcification noted without evidence of aneurysm. ? Abdominal wall:? Abdominal wall intact without evidence of ventral or inguinal hernias. ? Musculoskeletal:? Normal bone mineralization.? Degenerative disc disease and arthropathy noted in lower lumbar spine.? No acute fractures.? ? IMPRESSION: ? 1. Uncomplicated appendicitis.? The appendix is dilated and inflamed, but no periappendiceal abscess or free fluid.? No bowel obstruction ? ? Note:? Final report is concordant with preliminary interpretation by [employer] ? ? Approved by: Lefty Servin M.D. on 06/02/2023 at 13:53? ECG Data Interpretation: Sinus rhythm rate 86 NV interval 160 QRS [address] changes MDM Narrative Medical decision making narrative: Patient is 72-year-old female multiple comorbidities including insulin-dependent diabetes coronary artery disease presenting today with right lower quadrant pain. She is found to have UTI and uncomplicated acute appendicitis on CT. Labs have been reviewed she is leukocytosis of 26, no evidence of DKA or electrolyte abnormality creatinine is actually improved from previous today is 1.12, initial lactate was 2.5 improved to 1.8. She is initially given 2 g of Rocephin for UTI, possible pyelo versus infected nephrolithiasis. However once CT confirmed appendicitis Flagyl is also added. She is given IV fluids. No evidence of severe sepsis or septic shock. Dr. Shea updated on patient's symptoms test results recommends admitting to the hospitalist for management of multiple comorbidities will hold Eliquis treat conservatively for now. Dr. Galvez accepts patient Discharge Plan Departure Patient Disposition: Admitted As Inpatient Clinical Impression: Acute UTI, Acute appendicitis Admit Date/Time: 06/02/23 15:32 Admit Provider: Samuel Galvez
[2023-06-02 12:05] LABS: Bacteria Urine Many (>30); Culture Indicated Urine Specimen Cultured; RBC Urine 30-100/HPF (0-5/HPF); Squamous Epithelial Cell Urine None Seen (0-5/HPF); WBC Urine 1-5/HPF (0-5/HPF)
--- NOTE | 2023-06-02 12:14 | DI.CT.S_ITS ---
PROCEDURE: CT ABDOMEN PELVIS W CON INDICATIONS: RLQ pain TECHNIQUE: After the administration of intravenous contrast, axial sections acquired from the lung bases to the pubic symphysis. Coronal and sagittal reformats were performed. For radiation dose reduction, the following was used: automated exposure control, adjustment of mA and/or kV according to patient size. COMPARISON: None. FINDINGS: Lower thorax: Aortic valve replacement noted. Bibasilar atelectasis. Liver: Normal in size and attenuation. No contour deformity present. Biliary system: No calcified cholelithiasis or pericholecystic inflammation. No intra or extrahepatic bile duct dilatation. Pancreas: Unremarkable without mass or inflammation evident. Spleen: Normal in size and density. Adrenals: Normal morphology and density. Reproductive system: Unremarkable as visualized. Urinary system: Bilateral nonobstructing renal calculi present. No hydronephrosis. Gastrointestinal system: The bowel is unremarkable without evidence of bowel obstruction or inflammation. The stomach appears unremarkable. Appendix: The appendix is hypervascular in slightly dilated at 10 cm. Periappendiceal inflammatory change present. No abscess or free air. No obstruction. Peritoneal spaces: No mesenteric or retroperitoneal adenopathy. No free air. No free fluid. Vasculature: Aortic atherosclerotic vascular calcification noted without evidence of aneurysm. Abdominal wall: Abdominal wall intact without evidence of ventral or inguinal hernias. Musculoskeletal: Normal bone mineralization. Degenerative disc disease and arthropathy noted in lower lumbar spine. No acute fractures. IMPRESSION: 1. Uncomplicated appendicitis. The appendix is dilated and inflamed, but no periappendiceal abscess or free fluid. No bowel obstruction Note: Final report is concordant with preliminary interpretation by [employer] Approved by: Lefty Servin M.D. on 06/02/2023 at 13:53
[2023-06-02] MEDS: cefTRIAXone 2,000 MG in SODIUM CHLORIDE 0.9% 100 ML 200 MG IV (12:38)
[2023-06-02] MEDS: SODIUM CHLORIDE 0.9% 1,000 ML 799 ML IV (12:38)
[2023-06-02 12:53] LABS: Lactate (Lactic Acid) 2.5 mmol/L (0.7-2.1)
[2023-06-02 14:39] LABS: Reflexed Lactate in 2 Hours Y
--- NOTE | 2023-06-02 15:18 | PM.CALLCOV.1 ---
Call Coverage Note Note Date of Patient Contact: 06/02/23 Time of Patient Contact: 15:19 Narrative of Care Provided: My interpretation of data is a ruptured appendicitis (focal) with multiple medical problems making her high risk for surgery. Plan is IV antibiotics and close followup. Hold anticoagulation. Diet today and NPO at midnight. I see no fecal lith on CT scan.
[2023-06-02 15:19] LABS: Lactate 2HR (Lactic Acid Rflx) 1.8 mmol/L (0.7-2.1)
[2023-06-02] MEDS: metroNIDAZOLE 500 MG/100 ML PIGGYBACK 100 MG IV (15:34)
[2023-06-02] MEDS: SODIUM CHLORIDE 0.9% 1,000 ML 125 ML IV (15:41)
[2023-06-02] MEDS: MORPHINE 4 MG/ML INJ IV (15:42)
[2023-06-02] MEDS: ONDANSETRON 4 MG/2 ML INJ IV (15:42)
--- NOTE | 2023-06-02 18:23 | PM.HP.1 ---
History of Present Illness History of Present Illness Date Patient Seen: 06/02/23 Time Patient Seen: 17:00 Chief complaint: RLQ Pain, Weakness Narrative: Ms. Parker is a 72W with PMH afib on eliquis, Type 2 DM on insulin, CAD, s/p TAVR, thyroid cancer, HTN who presents to the hospital with abdominal pain. She has been having decreased appetite, and right lower quadrant abdominal pain for the last day. She has no fevers, chills, nausea, vomiting, diarrhea. No dysuria. In the ED workup was done, vitals notable for afebrile, blood pressure 130s/60s, heart rate in the 80s, sats 97% on room air. Labs reviewed by me and notable for WBC 26.5. Na 138, BUN 31, creatinine 1.12. Lactate 2.5, improved to 1.8 with fluids. LFTs normal. Lipase. Urine with notable blood, nitrates, leuk esterase, and bacteria. CT abdomen and pelvis reviewed by me and notable for inflamed appendix. Surgery recommended observation and antibiotics and will continue to follow. She was ordered for antibiotics and admitted for further treatment. [facility] Medical History Abnormal mammogram of left breast Breast screening Colon polyps (08/31/14) Coronary artery disease Diabetes mellitus (~2011) Hyperlipidemia Hypertension (~2011) Incontinence Knee osteoarthritis NSTEMI (non-ST elevated myocardial infarction) (09/2018) Osteopenia (05/20/14) Recent heart attack Rheumatoid arthritis Sedentary lifestyle Stage II pressure ulcer of sacral region (~02/2023) Thyroid nodule Surgical History Anesthesia History of bilateral knee replacement (2009) History of colonoscopy with polypectomy (08/31/14) History of knee replacement History of knee replacement History of left cataract surgery (03/23/15) History of right cataract surgery (04/06/15) Status post delivery (12/21/78) Family History Brother Drowning Father Heart disease Mother Diabetes mellitus Sister Bone cancer Sister Bone cancer Social History marital status: household members: family and children Smoking Status: Never smoker alcohol intake: current substance use type: does not use Meds Home Medications and Allergies Home Medications Medication Instructions Recorded Confirmed Type metoprolol tartrate 50 mg tablet 50 mg PO BID #180 tabs 05/26/19 06/02/23 Rx losartan 50 mg-hydrochlorothiazide 1 tab PO DAILY 09/24/19 06/02/23 History 12.5 mg tablet Parking Permit... #1 ea 09/08/20 06/02/23 Rx pen needle, diabetic 29 gauge x #100 ea 03/09/22 06/02/23 Rx 1/2 (Comfort EZ Pen [place]) blood sugar diagnostic (True #100 strips 11/09/22 06/02/23 Rx Metrix Glucose Test Strip) apixaban 5 mg tablet (Eliquis) 5 mg PO BID #180 tabs 04/12/23 06/02/23 Rx insulin lispro 100 unit/mL 1 sliding scale dose SUBCUT 04/24/23 06/02/23 Rx subcutaneous pen (Humalog KwikPen USEASDIRECTD #15 mL (U-100) Insulin) nitroglycerin 0.4 mg sublingual 0.4 mg sublingual Q5-15M PRN chest 04/24/23 06/02/23 Rx tablet pain #90 tabs atorvastatin 80 mg tablet (Lipitor) 80 mg PO QPM 06/02/23 06/02/23 History clopidogrel 75 mg tablet 75 mg PO QAM 06/02/23 06/02/23 History insulin glargine 100 unit/mL (3 40 unit SUBCUT QAM 06/02/23 06/02/23 History mL) subcutaneous pen (Lantus Solostar U-100 Insulin) metformin 500 mg tablet 1,000 mg PO QAM 06/02/23 06/02/23 History Allergies Allergy/AdvReac Type Severity Reaction Status Date / Time Sulfa (Sulfonamide Allergy Mild RASH Verified 04/24/23 14:44 Antibiotics) Review of Systems Review of Systems Narrative: 14 systems reviewed and negative aside from what is noted in HPI Exam Vital Signs (past 8 hours): - 06/02/23 10:39 06/02/23 10:32 06/02/23 11:00 Temperature 98.2 F Pulse Rate 85 87 86 Respiratory Rate 16 29 H Blood Pressure 131/59 L Pulse Oximetry 98 98 97 Oxygen Delivery Method Room Air 06/02/23 11:22 06/02/23 11:22 06/02/23 11:30 Temperature Pulse Rate 86 85 Respiratory Rate 14 26 H Blood Pressure 142/65 H Pulse Oximetry 99 98 Oxygen Delivery Method 06/02/23 11:45 06/02/23 11:45 06/02/23 12:00 Temperature Pulse Rate 81 Respiratory Rate 19 Blood Pressure 122/55 L 134/63 Pulse Oximetry 99 Oxygen Delivery Method 06/02/23 12:00 06/02/23 12:15 06/02/23 12:15 Temperature Pulse Rate 82 83 Respiratory Rate 16 18 Blood Pressure 161/66 H Pulse Oximetry 99 99 Oxygen Delivery Method 06/02/23 12:30 06/02/23 12:30 06/02/23 12:45 Temperature Pulse Rate 82 Respiratory Rate 21 Blood Pressure 132/60 122/57 L Pulse Oximetry 100 Oxygen Delivery Method 06/02/23 12:45 06/02/23 13:00 06/02/23 13:00 Temperature Pulse Rate 85 83 Respiratory Rate 26 H 24 Blood Pressure 124/61 Pulse Oximetry 99 99 Oxygen Delivery Method 06/02/23 13:22 06/02/23 13:22 06/02/23 13:23 Temperature Pulse Rate 85 86 Respiratory Rate 14 18 Blood Pressure 125/61 Pulse Oximetry 100 100 Oxygen Delivery Method 06/02/23 13:23 06/02/23 13:30 06/02/23 13:30 Temperature Pulse Rate 85 Respiratory Rate 20 Blood Pressure 131/62 125/59 L Pulse Oximetry 99 Oxygen Delivery Method 06/02/23 13:45 06/02/23 13:45 06/02/23 14:00 Temperature Pulse Rate 85 Respiratory Rate 15 Blood Pressure 127/55 L 130/62 Pulse Oximetry 100 Oxygen Delivery Method 06/02/23 14:00 06/02/23 14:15 06/02/23 14:15 Temperature Pulse Rate 87 85 Respiratory Rate 23 18 Blood Pressure 129/56 L Pulse Oximetry 100 99 Oxygen Delivery Method 06/02/23 14:30 06/02/23 14:30 06/02/23 14:46 Temperature Pulse Rate 85 Respiratory Rate 17 Blood Pressure 137/63 130/60 Pulse Oximetry 99 Oxygen Delivery Method 06/02/23 14:46 06/02/23 15:00 06/02/23 15:00 Temperature Pulse Rate 87 85 Respiratory Rate 25 H 20 Blood Pressure 133/62 Pulse Oximetry 99 99 Oxygen Delivery Method 06/02/23 15:15 06/02/23 15:15 06/02/23 15:30 Temperature Pulse Rate 84 Respiratory Rate 21 Blood Pressure 130/59 L 115/57 L Pulse Oximetry 99 Oxygen Delivery Method 06/02/23 15:30 06/02/23 15:45 06/02/23 15:45 Temperature Pulse Rate 83 84 Respiratory Rate 30 H 23 Blood Pressure 113/59 L Pulse Oximetry 100 99 Oxygen Delivery Method 06/02/23 16:30 Temperature 97.1 F L Pulse Rate 79 Respiratory Rate 17 Blood Pressure 131/80 Pulse Oximetry 95 Oxygen Delivery Method Oxygen Delivery Method Room Air Narrative Exam Narrative: GEN: no acute distress CV: regular rate and rhythm, no murmurs PULM: clear bilaterally ABD: soft, tender in right lower quadrant, no rebound/guarding EXT: warm and well perfused with no edema Objective Labs 06/02/23 10:57 06/02/23 10:57 Labs: Laboratory Results - last 24 hr 06/02/23 06/02/23 06/02/23 10:57 10:57 10:57 WBC 26.5 H RBC 4.49 Hgb 12.5 Hct 37.5 MCV 83.5 MCH 27.8 MCHC 33.3 RDW 14.5 Plt Count 312 Neut % (Auto) Not Reportable Lymph % (Auto) Not Reportable [place] % (Auto) Not Reportable Eos % (Auto) Not Reportable Baso % (Auto) Not Reportable Lymph # (Auto) Not Reportable [place] # (Auto) Not Reportable Baso # (Auto) Not Reportable Total Counted 100 Seg Neutrophils % 92.0 H Band Neutrophils % 2.0 L Lymphocytes % (Manual) 5.0 L Monocytes % (Manual) 1.0 L Neutrophils # (Manual) 57859 H RBC Morphology Normal morphology Sodium 138 Potassium 4.4 Chloride 100 Carbon Dioxide 28 BUN 31 H Creatinine 1.12 H Estimated GFR 53 L BUN/Creatinine Ratio 27.7 H Glucose 308 H Lactate 2.5 H Calcium 9.3 Total Bilirubin 0.7 AST 23 ALT 20 Alkaline Phosphatase 73 Total Protein 8.3 H Albumin 4.1 Globulin 4.2 H Albumin/Globulin Ratio 1.0 Lipase 63 Urine Color Urine Appearance Urine pH Ur Specific [place] Urine Protein Urine Glucose (UA) Urine Ketones Urine Occult Blood Urine Nitrate Urine Bilirubin Urine Urobilinogen Ur Leukocyte Esterase Urine RBC Urine WBC Ur Squamous Epith Cells Urine Bacteria Ur Culture Indicated? 06/02/23 06/02/23 11:20 14:45 WBC RBC Hgb Hct MCV MCH MCHC RDW Plt Count Neut % (Auto) Lymph % (Auto) [place] % (Auto) Eos % (Auto) Baso % (Auto) Lymph # (Auto) [place] # (Auto) Baso # (Auto) Total Counted Seg Neutrophils % Band Neutrophils % Lymphocytes % (Manual) Monocytes % (Manual) Neutrophils # (Manual) RBC Morphology Sodium Potassium Chloride Carbon Dioxide BUN Creatinine Estimated GFR BUN/Creatinine Ratio Glucose Lactate 1.8 Calcium Total Bilirubin AST ALT Alkaline Phosphatase Total Protein Albumin Globulin Albumin/Globulin Ratio Lipase Urine Color Yellow Urine Appearance Cloudy Urine pH 7.0 Ur Specific [place] 1.020 Urine Protein 2+ H Urine Glucose (UA) Negative Urine Ketones Negative Urine Occult Blood 3+ H Urine Nitrate Positive H Urine Bilirubin Negative Urine Urobilinogen 1.0 Ur Leukocyte Esterase Trace H Urine RBC 30-100/hpf H Urine WBC 1-5/hpf Ur Squamous Epith Cells None seen Urine Bacteria Many (>30) H Ur Culture Indicated? Specimen cultured Assessment & Plan Assessment & Plan narrative: 1. Acute appendicitis -patient with abdominal pain in RLQ, and findings of appendicitis on CT, with leukocytosis -appreciate general surgery consult -hold eliquis -antibiotics with zosyn for now -NPO at midnight for possible surgery tomorrow 2. UTI -UA positive with nitrates, leuk esterase, bacteria -continue antibiotics as above -follow up cultures 3. paroxysmal Afib -hold eliquis 4. Type 2 Diabetes on insulin -continue lantus 40U daily, but will need lowered dosing tomorrow if goes for surgery -ordered for insulin sliding scale 5. Hypertension -hold losartan, HCTZ 6. CAD -hold antiplatelet meds -continue metoprolol 7. Thyroid cancer -in process of getting surgical removal as oupatient I have discussed plan and obtained history from patient and family. I have discussed plan of care with ED physician and bedside nurse. I have reviewed labs, imaging. CODE: Full Proxy: Morelia Zimmerman, daughter [employer] MIPS - Meds 'Current medications' to include all prescriptions, [id number] products, herbals, cannabis/cannabidiol products, and vitamin/mineral/dietary (nutritional) supplements. I have utilized all available resources to obtain, update, or review the patient?s current medications. [If Yes, STOP here]: Yes
[2023-06-02] MEDS: PIPERACILLIN/TAZO 3.375 GM in SODIUM CHLORIDE 0.9% 100 ML IV (18:42)
[2023-06-02] MEDS: INSULIN LISPRO 100 UNIT/ML 3ML VIAL SUBCUT (21:27)
[2023-06-02] MEDS: METOPROLOL IR 50 MG TABLET PO (21:27)
--- NOTE | 2023-06-02 23:26 | PC.NURSE ---
Patient is alert and oriented except thought day of week was Sunday. Breath sounds CTA with RA sat of 97%. HRR. Denies nausea. BT hypoactive but soft although tender in RLQ. Reports she is incontinent at home and currently has external catheter in place; denies any dysuria. Has difficulty turning in bed and has pressure ulcer on coccyx/buttocks so set up for staff to reposition q2h. Gait not assessed at this time. Bilateral calf SCD's applied. Reports neuropathy from mid vogt down but is able to discern touch to bilateral LE. Fall risk score is moderate and bed alarm is activated. Verbalizes understanding that she will be NPO after 0000 for likely surgery tomorrow.
[2023-06-03] MEDS: SODIUM CHLORIDE 0.9% 1,000 ML 125 ML IV (00:27)
[2023-06-03 02:36] VITALS: BP 111/54; PULSE 75; RESP 20; TEMP 35.9; O2SAT 96
[2023-06-03] MEDS: PIPERACILLIN/TAZO 3.375 GM in SODIUM CHLORIDE 0.9% 100 ML IV ×3 (02:48→18:54)
[2023-06-03] MEDS: MORPHINE 2 MG/ML INJ IV (02:48)
[2023-06-03 06:44] LABS: Add Manual Diff / Slide Review NO; Basophils Absolute Auto 100 /uL (0-100); Basophils Percent Auto 0.6 % (0-2); Eosinophils Absolute Auto 200 /uL (0-450); Eosinophils Percent Auto 1.6 % (2-4); Lymphocytes Absolute Auto 1500 /uL (1100-4500); Lymphocytes Percent Auto 10.2 % (25-40); Mean Corpuscular HGB Conc 33.1 % (30-36); Mean Corpuscular Volume 84.5 fL (80-100); Monocytes Absolute Auto 1000 /uL (0-900); Monocytes Percent Auto 6.3 % (3-14); Neutrophils Absolute Auto 12300 /uL (1500-7000); Neutrophils Percent Auto 81.3 % (50-75); Platelet Count 221 X10^3/uL (150-400); Red Blood Cell Count 3.55 X10^6/uL (4.0-5.2); Red Cell Distribution Width 14.3 % (11.6-14.8); White Blood Cell Count 15.1 X10^3/uL (4.5-11.0)
[2023-06-03 06:53] LABS: BUN Creatinine Ratio 20.5 (6-22); Blood Urea Nitrogen 25 mg/dL (7-17); Calcium 7.7 mg/dL (8.4-10.2); Carbon Dioxide 25 mmol/L (22-32); Chloride 105 mmol/L (98-107); Estimated Glomerular Filt Rate 48 mL/min (>60); Glucose 136 mg/dL (80-110); HEMOLYSIS < 15 (0-50); Potassium 3.9 mmol/L (3.4-5.1); Sodium 135 mmol/L (137-145)
[2023-06-03 08:00] VITALS: BP 121/54; PULSE 76; RESP 17; TEMP 36.7; O2SAT 96
--- NOTE | 2023-06-03 10:14 | PM.CN ---
History of Present Illness Consult details Date Patient Seen: 06/03/23 Time Patient Seen: 10:15 Chief complaint: RLQ Pain, Weakness Reason for consult: appendicitis Requesting provider: Evan Willard Narrative: Patient having pelvic and right sided pain, work up in ED with CT and labs show UTI and (to my read) a contained perforated appendicitis. Feeling better this morning. H/o Tavar, afib, chronic anticoagulation, obesity and deconditioning. Is hungry, tenderness more than right sided pain today. Meds Home Medications and Allergies Home Medications Medication Instructions Recorded Confirmed Type metoprolol tartrate 50 mg tablet 50 mg PO BID #180 tabs 05/26/19 06/02/23 Rx losartan 50 mg-hydrochlorothiazide 1 tab PO DAILY 09/24/19 06/02/23 History 12.5 mg tablet Parking Permit... #1 ea 09/08/20 06/02/23 Rx pen needle, diabetic 29 gauge x #100 ea 03/09/22 06/02/23 Rx 1/2 (Comfort EZ Pen [place]) blood sugar diagnostic (True #100 strips 11/09/22 06/02/23 Rx Metrix Glucose Test Strip) apixaban 5 mg tablet (Eliquis) 5 mg PO BID #180 tabs 04/12/23 06/02/23 Rx insulin lispro 100 unit/mL 1 sliding scale dose SUBCUT 04/24/23 06/02/23 Rx subcutaneous pen (Humalog KwikPen USEASDIRECTD #15 mL (U-100) Insulin) nitroglycerin 0.4 mg sublingual 0.4 mg sublingual Q5-15M PRN chest 04/24/23 06/02/23 Rx tablet pain #90 tabs atorvastatin 80 mg tablet (Lipitor) 80 mg PO QPM 06/02/23 06/02/23 History clopidogrel 75 mg tablet 75 mg PO QAM 06/02/23 06/02/23 History insulin glargine 100 unit/mL (3 40 unit SUBCUT QAM 06/02/23 06/02/23 History mL) subcutaneous pen (Lantus Solostar U-100 Insulin) metformin 500 mg tablet 1,000 mg PO QAM 06/02/23 06/02/23 History Allergies Allergy/AdvReac Type Severity Reaction Status Date / Time Sulfa (Sulfonamide Allergy Mild RASH Verified 04/24/23 14:44 Antibiotics) Review of Systems Review of Systems ROS: Yes All systems reviewed with the patient and are negative except as otherwise documented Exam Vital Signs (past 8 hours): - 06/03/23 02:36 06/03/23 08:00 Temperature 96.7 F L 98.0 F Pulse Rate 75 76 Respiratory Rate 20 17 Blood Pressure 111/54 L 121/54 L Pulse Oximetry 96 96 Oxygen Flow Rate 0 0 Oxygen Delivery Method Room Air Oxygen Flow Rate 0 Const General: cooperative and comfortable Nutritional Appearance: obese Orientation: alert, awake and oriented x3 HENMT Head: normocephalic and atraumatic Eyes Sclera: sclerae normal Neck Neck: trachea midline Resp Effort & Inspection: normal respiratory effort and able to speak in complete sentences Cardio Rate: regular rate Rhythm: abnormal rhythm GI Palpation: soft Other: mild tenderness RLQ Skin General: atrophy Neuro General: patient alert, patient awake and patient oriented x3 Psych Mental Status: mental status grossly normal Thought Process: normal Judgment: judgment good Objective Labs 06/03/23 06:15 06/03/23 06:15 Labs: Laboratory Results - last 24 hr 06/02/23 06/02/23 06/02/23 10:57 10:57 10:57 WBC 26.5 H RBC 4.49 Hgb 12.5 Hct 37.5 MCV 83.5 MCH 27.8 MCHC 33.3 RDW 14.5 Plt Count 312 Neut % (Auto) Not Reportable Lymph % (Auto) Not Reportable [place] % (Auto) Not Reportable Eos % (Auto) Not Reportable Baso % (Auto) Not Reportable Neut # (Auto) Lymph # (Auto) Not Reportable [place] # (Auto) Not Reportable Eos # (Auto) Baso # (Auto) Not Reportable Total Counted 100 Seg Neutrophils % 92.0 H Band Neutrophils % 2.0 L Lymphocytes % (Manual) 5.0 L Monocytes % (Manual) 1.0 L Neutrophils # (Manual) 20336 H RBC Morphology Normal morphology Sodium 138 Potassium 4.4 Chloride 100 Carbon Dioxide 28 BUN 31 H Creatinine 1.12 H Estimated GFR 53 L BUN/Creatinine Ratio 27.7 H Glucose 308 H Lactate 2.5 H Calcium 9.3 Total Bilirubin 0.7 AST 23 ALT 20 Alkaline Phosphatase 73 Total Protein 8.3 H Albumin 4.1 Globulin 4.2 H Albumin/Globulin Ratio 1.0 Lipase 63 Urine Color Urine Appearance Urine pH Ur Specific [place] Urine Protein Urine Glucose (UA) Urine Ketones Urine Occult Blood Urine Nitrate Urine Bilirubin Urine Urobilinogen Ur Leukocyte Esterase Urine RBC Urine WBC Ur Squamous Epith Cells Urine Bacteria Ur Culture Indicated? 06/02/23 06/02/23 06/03/23 11:20 14:45 06:15 WBC 15.1 H RBC 3.55 L Hgb 10.0 L Hct 30.0 L MCV 84.5 MCH 28.0 MCHC 33.1 RDW 14.3 Plt Count 221 Neut % (Auto) 81.3 H Lymph % (Auto) 10.2 L [place] % (Auto) 6.3 Eos % (Auto) 1.6 L Baso % (Auto) 0.6 Neut # (Auto) 78947 H Lymph # (Auto) 1500 [place] # (Auto) 1000 H Eos # (Auto) 200 Baso # (Auto) 100 Total Counted Seg Neutrophils % Band Neutrophils % Lymphocytes % (Manual) Monocytes % (Manual) Neutrophils # (Manual) RBC Morphology Sodium Potassium Chloride Carbon Dioxide BUN Creatinine Estimated GFR BUN/Creatinine Ratio Glucose Lactate 1.8 Calcium Total Bilirubin AST ALT Alkaline Phosphatase Total Protein Albumin Globulin Albumin/Globulin Ratio Lipase Urine Color Yellow Urine Appearance Cloudy Urine pH 7.0 Ur Specific [place] 1.020 Urine Protein 2+ H Urine Glucose (UA) Negative Urine Ketones Negative Urine Occult Blood 3+ H Urine Nitrate Positive H Urine Bilirubin Negative Urine Urobilinogen 1.0 Ur Leukocyte Esterase Trace H Urine RBC 30-100/hpf H Urine WBC 1-5/hpf Ur Squamous Epith Cells None seen Urine Bacteria Many (>30) H Ur Culture Indicated? Specimen cultured 06/03/23 06:15 WBC RBC Hgb Hct MCV MCH MCHC RDW Plt Count Neut % (Auto) Lymph % (Auto) [place] % (Auto) Eos % (Auto) Baso % (Auto) Neut # (Auto) Lymph # (Auto) [place] # (Auto) Eos # (Auto) Baso # (Auto) Total Counted Seg Neutrophils % Band Neutrophils % Lymphocytes % (Manual) Monocytes % (Manual) Neutrophils # (Manual) RBC Morphology Sodium 135 L Potassium 3.9 Chloride 105 Carbon Dioxide 25 BUN 25 H Creatinine 1.22 H Estimated GFR 48 L BUN/Creatinine Ratio 20.5 Glucose 136 H D Lactate Calcium 7.7 L Total Bilirubin AST ALT Alkaline Phosphatase Total Protein Albumin Globulin Albumin/Globulin Ratio Lipase Urine Color Urine Appearance Urine pH Ur Specific [place] Urine Protein Urine Glucose (UA) Urine Ketones Urine Occult Blood Urine Nitrate Urine Bilirubin Urine Urobilinogen Ur Leukocyte Esterase Urine RBC Urine WBC Ur Squamous Epith Cells Urine Bacteria Ur Culture Indicated? [facility] Medical History Abnormal mammogram of left breast Breast screening Colon polyps (08/31/14) Coronary artery disease Diabetes mellitus (~2011) Hyperlipidemia Hypertension (~2011) Incontinence Knee osteoarthritis NSTEMI (non-ST elevated myocardial infarction) (09/2018) Osteopenia (05/20/14) Recent heart attack Rheumatoid arthritis Sedentary lifestyle Stage II pressure ulcer of sacral region (~02/2023) Thyroid nodule Surgical History Anesthesia History of bilateral knee replacement (2009) History of colonoscopy with polypectomy (08/31/14) History of knee replacement History of knee replacement History of left cataract surgery (03/23/15) History of right cataract surgery (04/06/15) Status post delivery (12/21/78) Family History Brother Drowning Father Heart disease Mother Diabetes mellitus Sister Bone cancer Sister Bone cancer Social History marital status: household members: family and children Tobacco & Substance Use Smoking Status: Never smoker alcohol intake: current substance use type: does not use Assessment & Plan Assessment & Plan narrative: Multiple comorbid conditions. Contained ruptured appendicitis, UTI, chronic anticoagulation Plan: responding to medical management of appendicitis Restart diet Repeat CBC in am Time Spent With Patient Time with patient: 30 to 49 minutes with 50% spent counseling/coordinating care
[2023-06-03] MEDS: METOPROLOL IR 50 MG TABLET PO ×2 (10:29→21:54)
[2023-06-03] MEDS: INSULIN GLARGINE 100 UNIT/ML 3ML PEN 40 UNIT SUBCUT (10:31)
[2023-06-03] MEDS: INSULIN LISPRO 100 UNIT/ML 3ML VIAL SUBCUT ×3 (10:31→17:27)
--- NOTE | 2023-06-03 11:26 | CM.DANOTE ---
Patient is a 72 yo female who was admitted on 06/02/23 for Pain/Weakness. Pt has [employer] [facility] and [employer] for insurance and her PCP is Chino Ruggiero. EMR was reviewed. Per MD, pt with hx of diabetes and thyroid CA and admitted for inflamed appendix and IV-Abx. Per Surgeon Consult, pt seems to be responding with IV-Abx and plan is currently conservative tx without surgery at this time and pt able to eat and likely to need a few days of IV-Abx before stable for d/c. SW met bedside with pt and explained role and she confirms she lives outside of [place] and her son Eddie lives with her but works. Pt is independent with most ADLs but does not drive and states her son transports her to appointments. Pt has a walker at home but does not use it much but pt states she also is fairly sedentary and does not leave the house much. Pt used to attend a local gym for exercise and states this was helpful but now that she doesn't drive she does not leave home much. Pt denies any hx of HH or SNF and she has upcoming Ginning Operator appointment and Mamogram and Thyroid MRI that was scheduled by her PCP and ENT in [facility] for tomorrow and son plans to call in the AM to reschedule since pt is admitted. Pt in agreement that she feels weak and deconditioned and below baseline. PT orders placed to determine d/c planning needs. Plan: SW to follow closely for PT eval and recommendations to confirm safe d/c home with son assist and r/o HH when medically stable and any further identified discharge planning needs. SAYRA Lan Discharge Planning/Care Management Advanced directive, confirm from FAMILY Start: 06/02/23 17:07 Freq: Q24H Status: Active Protocol: Document 06/02/23 17:07 CEW (Rec: 06/02/23 18:34 CEW [id number]) Advance Directive, confirm on record Time 17:00 Person contacted FAMILY/PT Copy received No CM Discharge Assessment Start: 06/03/23 11:24 Freq: Status: Active Protocol: Document 06/03/23 11:24 BF (Rec: 06/03/23 11:26 BF [id number]) Discharge Planning Assessment Assigned Roller Inspector And Mender SAYRA Voss DPOA/Assigned Designee Name son Eddie Advance Directives? Yes Advance Directives on File No History Provided By Patient,Family Member,Medical Record Has Patient been admitted in last 30 No days? Prior Living Arrangements House Household Members family,children Comment Patient's son Eddie lives with her but works Type of transporation used prior to Relies on Others admit Independent with ADL's Yes Is patient alert and oriented? Yes Needs Assistance With Managing Medications,Home Chores / Shopping Caregiver for Another No DME Already Rented / Owned FWW / Walker Comment Pending PT eval to determine poss HH Barriers to Discharge No Discharge Plan Home with Home Health Transportation Arrangement Likely naun Morgan at d/c Additional Comment Pending PT eval and recommendations Whiteboard Updated in Patient Room with Yes name and ext. # of Roller Inspector And Mender Review Status In Process Please Provide Date Initial DC 06/03/23 Assessment Was Performed Next Review Type Continued Stay Review
[2023-06-03 14:00] VITALS: BP 111/40; PULSE 79; RESP 17; TEMP 36.2; O2SAT 98
--- NOTE | 2023-06-03 14:32 | PM.PN.1 ---
Subjective Subjective Date Patient Seen: 06/03/23 Time Patient Seen: 08:00 Interval history: She feels better with antibiotics. She has eaten today and pain remains well controlled. Exam Vital Signs (past 8 hours): - 06/03/23 08:00 Temperature 98.0 F Pulse Rate 76 Respiratory Rate 17 Blood Pressure 121/54 L Pulse Oximetry 96 Oxygen Flow Rate 0 Oxygen Delivery Method Room Air Oxygen Flow Rate 0 Narrative Exam Narrative: GEN: no acute distress CV: regular rate and rhythm, no murmurs PULM: clear bilaterally ABD: soft, tender in right lower quadrant, no rebound/guarding EXT: warm and well perfused with no edema Objective Labs 06/03/23 06:15 06/03/23 06:15 Labs: Laboratory Results - last 24 hr 06/02/23 06/03/23 06/03/23 14:45 06:15 06:15 WBC 15.1 H RBC 3.55 L Hgb 10.0 L Hct 30.0 L MCV 84.5 MCH 28.0 MCHC 33.1 RDW 14.3 Plt Count 221 Neut % (Auto) 81.3 H Lymph % (Auto) 10.2 L Reeves % (Auto) 6.3 Eos % (Auto) 1.6 L Baso % (Auto) 0.6 Neut # (Auto) 50126 H Lymph # (Auto) 1500 Reeves # (Auto) 1000 H Eos # (Auto) 200 Baso # (Auto) 100 Sodium 135 L Potassium 3.9 Chloride 105 Carbon Dioxide 25 BUN 25 H Creatinine 1.22 H Estimated GFR 48 L BUN/Creatinine Ratio 20.5 Glucose 136 H D Lactate 1.8 Calcium 7.7 L PFSH Medical History Abnormal mammogram of left breast Breast screening Colon polyps (08/31/14) Coronary artery disease Diabetes mellitus (~2011) Hyperlipidemia Hypertension (~2011) Incontinence Knee osteoarthritis NSTEMI (non-ST elevated myocardial infarction) (09/2018) Osteopenia (05/20/14) Recent heart attack Rheumatoid arthritis Sedentary lifestyle Stage II pressure ulcer of sacral region (~02/2023) Thyroid nodule Surgical History Anesthesia History of bilateral knee replacement (2009) History of colonoscopy with polypectomy (08/31/14) History of knee replacement History of knee replacement History of left cataract surgery (03/23/15) History of right cataract surgery (04/06/15) Status post delivery (12/21/78) Family History Brother Drowning Father Heart disease Mother Diabetes mellitus Sister Bone cancer Sister Bone cancer Social History marital status: household members: family and children Smoking Status: Never smoker alcohol intake: current substance use type: does not use Assessment & Plan Assessment & Plan narrative: 1. Acute appendicitis -patient with abdominal pain in RLQ, and findings of appendicitis on CT, with leukocytosis -appreciate general surgery consult -hold eliquis -antibiotics with zosyn for now -improving with antibiotics, surgery recommends continued medical management for now 2. UTI -UA positive with nitrates, leuk esterase, bacteria -continue antibiotics as above -follow up cultures 3. paroxysmal Afib -hold eliquis 4. Type 2 Diabetes on insulin -continue lantus 40U daily, but will need lowered dosing tomorrow if goes for surgery -ordered for insulin sliding scale 5. Hypertension -hold losartan, HCTZ 6. CAD -hold antiplatelet meds -continue metoprolol 7. Thyroid cancer -in process of getting surgical removal as oupatient
[2023-06-03 16:00] VITALS: BP 124/45; PULSE 79; RESP 17; TEMP 36.2; O2SAT 95
--- NOTE | 2023-06-03 18:21 | PC.NURSE ---
Assumed care of pt at 1730: A&Ox4, VSS on RA. C/o mild abdominal pain with movement but no pain while resting in bed. Lungs diminished on auscultation, bowel sounds present, UE CMS intact. N/t to bilat LE. Per pt, last BM today. SCDs on, purewick in place and functioning well, call light within reach, call light on bedside table next to patient.
[2023-06-03 20:20] VITALS: BP 128/54; PULSE 72; RESP 18; TEMP 36.1; O2SAT 95
[2023-06-03] MEDS: OXYCODONE IR 5 MG TABLET PO (21:50)
[2023-06-03] MEDS: ACETAMINOPHEN 325 MG TABLET 650 MG PO (21:51)
[2023-06-04] VITALS (23 sets, daily range): BP systolic 110–155; BP diastolic 54–101; PULSE 67–148; RESP 13–36; TEMP 35.8–36.9; O2SAT 88–99
[2023-06-04] MEDS: PIPERACILLIN/TAZO 3.375 GM in SODIUM CHLORIDE 0.9% 100 ML IV (02:25)
[2023-06-04 06:09] LABS: Hematocrit 29.6 % (36-46); Hemoglobin 9.9 g/dL (12.0-16.0); Mean Corpuscular HGB Conc 33.5 % (30-36); Mean Corpuscular Hemoglobin 28.1 PG (26-34); Platelet Count 214 X10^3/uL (150-400); Red Blood Cell Count 3.53 X10^6/uL (4.0-5.2); Red Cell Distribution Width 14.7 % (11.6-14.8)
[2023-06-04 06:20] LABS: BUN Creatinine Ratio 18.5 (6-22); Blood Urea Nitrogen 23 mg/dL (7-17); Calcium 7.9 mg/dL (8.4-10.2); Carbon Dioxide 27 mmol/L (22-32); Chloride 106 mmol/L (98-107); Estimated Glomerular Filt Rate 47 mL/min (>60); Glucose 156 mg/dL (80-110); HEMOLYSIS < 15 (0-50); Potassium 4.4 mmol/L (3.4-5.1); Sodium 137 mmol/L (137-145)
[2023-06-04] MEDS: INSULIN GLARGINE 100 UNIT/ML 3ML PEN 40 UNIT SUBCUT (08:53)
[2023-06-04] MEDS: INSULIN LISPRO 100 UNIT/ML 3ML VIAL SUBCUT ×2 (08:54→17:30)
[2023-06-04] MEDS: AMOXICILLIN/CLAV 875/125 MG 1 TAB PO ×2 (08:56→21:17)
[2023-06-04] MEDS: METOPROLOL IR 50 MG TABLET PO ×2 (08:56→21:17)
[2023-06-04] MEDS: ACETAMINOPHEN 325 MG TABLET 650 MG PO ×2 (08:56→16:13)
--- NOTE | 2023-06-04 10:21 | PM.CALLCOV.1 ---
Call Coverage Note Note Date of Patient Contact: 06/04/23 Narrative of Care Provided: ok to discharge home on 5 more days of antibiotics. Augmentin BID
--- NOTE | 2023-06-04 10:32 | PT.IIE ---
Current Diagnoses Unspecified acute appendicitis (06/02/23) Surgical History (Last Reviewed 06/03/23 @ 10:18 by Sultana Shea MD) Anesthesia History of bilateral knee replacement (2009) History of colonoscopy with polypectomy (08/31/14) History of knee replacement History of knee replacement History of left cataract surgery (03/23/15) History of right cataract surgery (04/06/15) Status post delivery (12/21/78) Medical History (Last Reviewed 06/03/23 @ 10:18 by Sultana Shea MD) Abnormal mammogram of left breast Breast screening Colon polyps (08/31/14) Coronary artery disease Diabetes mellitus (~2011) Hyperlipidemia Hypertension (~2011) Incontinence Knee osteoarthritis NSTEMI (non-ST elevated myocardial infarction) (09/2018) Osteopenia (05/20/14) Recent heart attack Rheumatoid arthritis Sedentary lifestyle Stage II pressure ulcer of sacral region (~02/2023) Thyroid nodule Physical Therapy Inpatient Evaluation/Re-Eval M1 PT/OT-IP Prior Functional Status Start: 06/04/23 07:41 Freq: NEEDED Status: Active Protocol: Document 06/04/23 10:32 AW (Rec: 06/04/23 11:28 AW [id number]) Medical Review Prior Functional Status Medical History Reviewed Yes Communication WNL. Pt is an effective verbal communicator Mobility and Gait Pt is able to walk from her recliner to the bathroom and back. She does not use an AD at home but tends to stay close to brown for support. She endorses two falls in the past six months. Activities of Daily Living and IADL's Pt dresses herself, largely in oversize shirts and disposable briefs. She does not feel safe getting in to the shower by herself, has fallen in the shower at least once. Pt depends on her son for transportation. Social History Household Members family,children Living Arrangements House Number of Floors (Floors) One Floor Number of Stairs To Enter/Railing? 2 steps + 2 steps to the front door. No rails for the first set. Pt reaches the door handle for second set. 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 Pt's neighbor comes over early in the morning to assist with breakfast. She gets Meals on Wheels delivered. She sleeps in a recliner. M2 PT-IP Current Condition Start: 06/04/23 07:41 Freq: NEEDED Status: Active Protocol: Document 06/04/23 10:32 AW (Rec: 06/04/23 11:28 AW [id number]) Physical Therapy Current Condition Current Condition Evaluation Date 06/04/23 Treatment Diagnosis UTI, appendicitis, impaired mobility Onset Date 06/02/23 M3 PT-IP Subjective Start: 06/04/23 07:41 Freq: NEEDED Status: Active Protocol: Document 06/04/23 10:32 AW (Rec: 06/04/23 11:28 AW [id number]) Subjective Physical Therapy Visit Type Type Initial Evaluation Visit Start Time 10:07 Visit Stop Time 10:32 Total Visit Minutes 25 Physical Therapy Visit Comments Patient Comments Pt is willing to participate with PT Patient Goals Pt would like to be able to do more for herself Therapy Pain Assessment Pain When Pain Assessed During Mobility Pain Present Pain Present Pain Reported Location Right Lower Abdomen Scale Used not quantified M4 PT-IP Mobility and Gait Start: 06/04/23 07:41 Freq: NEEDED Status: Active Protocol: Document 06/04/23 10:32 AW (Rec: 06/04/23 11:28 AW [id number]) PT-Transfer Assessment Sit to and From Stand Sit to and from Stand Standby Assistance,Contact Guard Assistance,Use of Upper Extremities Equipment Transfer Assistive Device Bed Rail,Front Wheeled Walker Orthotic/Prosthetic Devices or Brace: No Transfers Transfer Destination Chair Transfer Technique Stand Step Pivot Transfer Ability Level of Assist Standby Assistance,Contact Guard Assistance Comments Mobility Comments Pt was reclined in the chair when PT arrived. She stood with CGA initially, using momentum and rocking motion to initiate. She used FWW to ambulate 20 feet in the room SBA and then used no device to walk another 20 feet with CGA and noted to be reaching for environmental support. Gait Assessment Gait Gait Assistance Required: Standby Assistance,Contact Guard Assist Distance (Feet) 40 Assistive Devices Assistive Device None,Gait Belt,Front Wheeled Walker Orthotic/Prosthetic Devices or Brace: No Gait Deviations General Gait Pattern Antalgic,Decreased Stride Length,Decreased Feet Clearance,Wide Based Gait Factors Limiting Gait Function Factors Limiting Gait Function Decreased Activity Tolerance, Decreased Sensation,Decreased Strength,Pain,Poor Balance Comments Gait Comments Pt ambulates with wide SIDNEY. No overt LOB but generally unsteady. Better with FWW. Stair Climbing Assessment Evaluation Level of Assist On Stairs Contact Guard Assistance Devices Stair Climbing Assistive Devices Right Railing Technique/Endurance Stair Climbing Direction Ascend and Descend Number of Steps Climbed 1 Query Text: Stair Climbing Set # Repetitions (reps) 2 PT-Balance Assessment Sitting Balance and Reactions Static Sitting Balance Ability Good Dynamic Sitting Balance Ability Good Standing Balance and Reactions Static Standing Balance Ability Good Dynamic Standing Balance Ability Fair Device Used FWW Functional Assessments Functional Tests 5 Times Sit to Stand unable to complete secondary to abdominal pain M5 PT-IP Objective Assessments Start: 06/04/23 07:41 Freq: NEEDED Status: Active Protocol: Document 06/04/23 10:32 AW (Rec: 06/04/23 11:28 AW [id number]) Orientation Orientation/Cognition Level of Alertness Alert Orientation Name,Day of Week,Place, Situation Safety Awareness Understands Safety Issues Memory Description No Deficits Noted Gross Range of Motion Upper Extremity ROM Assessment Within Functional Limits Lower Extremity ROM Assessment Within Functional Limits Strength Upper Extremity Strength Assessment Bilaterally Impaired Shoulder 4-/5 Lower Extremity Strength Assessment Bilaterally Impaired Hip flexion 3+/5 Knee ext 4+/5; flex 4/5 Ankle DF 4/5; PF 4/5 Sensation Assessment Sensation Gross Sensation Right LE Impaired,Left LE Impaired Light Touch Impaired Comments Sensation Comments Neuropathy affects bilateral feet and ankles. M7 PT-IP Assessment and Plan Start: 06/04/23 07:41 Freq: NEEDED Status: Active Protocol: Document 06/04/23 10:32 AW (Rec: 06/04/23 11:28 AW [id number]) PT Summary Assessment and Plan Potential Rehabilitation Potential Good Status of Condition at Evaluation Evolving Summary Impairments Strength,Balance,Sensation,Bed Mobility,Transfers,Gait, Activity Tolerance Assessment Summary Anuja is a 72 yo woman seen for PT evaluation while admitted with UTI and uncomplicated appendicitis ( treated conservatively). PMH includes DM2, recurrent UTI, HTN, NSTEMI, s/p TAVR. CAD, and thyroid cancer. She is anticoagulated with Eliquis. Pt does not use any DME at baseline but onoy walks short distances. She struggles with ADL's. Pt presents with general deconditioning as described above and is needing SBA to CGA for sit to stand and short distance gait which is enough to get her to the bathroom and back at home but limits her functional mobility independence. Pt's stability and self-efficacy did seem to improve while using FWW. PT recommends continued use of 4WW at home. PT further recommends pt discharge home with assist and home health therapies to progress her independent mobility and ADL management. Goals Bed Mobility Goal Contact Guard Assistance Transfer Goal Standby Assistance,Four Wheeled Walker Gait Goal Standby Assistance,Four Wheel Walker Gait Distance 75 Other Goals - up/down 4 steps with unilateral rail and SBA Frequency of Treatment Frequency Of Treatment Once a Day Treatment Plan Physical Therapy Treatment Plan Bed Mobility Training,Transfer Training,Gait Training, Therapeutic Exercise,Balance Retraining,Discharge Planning, Hot or Cold Pack Precautions Other Precautions falls risk Recommendations To Nursing Amount of Assist Needed 1 Person Assist Discharge Recommendations PT Discharge Recommendations Home with Assistance,Home Health Transportation Needs at Discharge Private Vehicle
--- NOTE | 2023-06-04 12:34 | CM.DPC ---
DCP Discharge Home with HH Per MD, pt is medically stable to d/c home today after PT eval and recommendations. Per PT, recommending home with assist and HH. SW met bedside with pt again and pt confirms she is looking forward to discharge home today and already called her son and he will provide transport home this afternoon and pt also has a caregiver who assists when son is working. Pt confirms she has a hx of HH and feels they would be beneficial and pt reviewed the HH Choice list and no HH preferences. SW made [facility] referral based on Clinical Outcomes Manager Calendar and VICENTA Valdes kindly faxed new referral. F2F and HH orders completed. Plan: Patient to d/c home via son POV today and new [facility] referral made and to follow after discharge. SAYRA Lan
--- NOTE | 2023-06-04 15:28 | DI.RAD.S_ITS ---
PROCEDURE: XR CHEST 1V INDICATIONS: sob TECHNIQUE: One view of the chest was acquired. COMPARISON: [facility], CR, XR CHEST 1V, 03/22/2022, 11:25. FINDINGS: Surgical changes and devices: None. Lungs and pleura: Low lung volumes with increased interstitial prominence. No pleural effusions or pneumothorax. Mediastinum: Mediastinal contours appear normal. Heart size is normal. Bones and chest wall: No suspicious bony lesions. Overlying soft tissues appear unremarkable. IMPRESSION: Low lung volumes with increased interstitial prominence may represent pulmonary edema. Dictated by: Elodia Dumont M.D. on 06/04/2023 at 16:39 Approved by: Elodia Dumont M.D. on 06/04/2023 at 16:43
[2023-06-04 15:51] LABS: Hematocrit 33.6 % (36-46); Hemoglobin 11.3 g/dL (12.0-16.0); Mean Corpuscular HGB Conc 33.5 % (30-36); Mean Corpuscular Hemoglobin 28.3 PG (26-34); Mean Corpuscular Volume 84.5 fL (80-100); Platelet Count 273 X10^3/uL (150-400); Red Blood Cell Count 3.98 X10^6/uL (4.0-5.2); White Blood Cell Count 14.4 X10^3/uL (4.5-11.0)
[2023-06-04] MEDS: METOPROLOL TARTRATE 5 MG/5 ML INJ IV (15:59)
[2023-06-04 16:04] LABS: D Dimer 1472 ng/ml (<500)
[2023-06-04 16:07] LABS: Lactate (Lactic Acid) 0.9 mmol/L (0.7-2.1)
[2023-06-04 16:08] LABS: BUN Creatinine Ratio 20.2 (6-22); Blood Urea Nitrogen 23 mg/dL (7-17); Calcium 8.5 mg/dL (8.4-10.2); Carbon Dioxide 27 mmol/L (22-32); Chloride 102 mmol/L (98-107); Estimated Glomerular Filt Rate 52 mL/min (>60); Glucose 201 mg/dL (80-110); HEMOLYSIS < 15 (0-50); Magnesium 2.2 mg/dL (1.6-2.3); Potassium 4.5 mmol/L (3.4-5.1); Sodium 135 mmol/L (137-145)
[2023-06-04] MEDS: OXYCODONE IR 5 MG TABLET PO (16:12)
[2023-06-04 16:19] LABS: Troponin I 0.015 ng/mL (0.01-0.034)
--- NOTE | 2023-06-04 17:37 | DI.CT.S_ITS ---
PROCEDURE: CT ANGIO CHEST PE PROTOCOL INDICATIONS: PE? TECHNIQUE: After the administration of intravenous contrast, 2 mm thick sections acquired from the pulmonary apices to the posterior costophrenic angles. 3-dimensional maximum intensity projection (MIP) coronal and sagittal reformats were then acquired through the thorax. For radiation dose reduction, the following was used: automated exposure control, adjustment of mA and/or kV according to patient size. COMPARISON: None. FINDINGS: Image quality: Excellent. Pulmonary arteries: Pulmonary arteries are normal size. There is no filling defect to suggest pulmonary embolus. Lungs and pleura: Small symmetric dependently layering bilateral pleural effusions. Diffuse interstitial thickening. Scattered patchy ground-glass opacities, mainly peripherally. There is a round ground-glass nodule in the right upper lobe measuring 1.4 cm. Diffuse peribronchial thickening. Central airways are patent. Mediastinum: The heart is mildly enlarged. There is a trace pericardial effusion. 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 Aortic valvular surgical change. Mitral annular calcification and moderate coronary artery calcification are all present. There is mediastinal and mild right hilar adenopathy. Normal esophagus without hiatal hernia. Bones and chest wall: No suspicious bony lesions. Ribs and thoracic spine appear intact throughout. Thyroid gland demonstrates right lobe enlargement and coarse calcification.. No axillary or supraclavicular adenopathy. Abdomen: Visualized upper abdominal solid organs appear normal in the early arterial phase of enhancement. IMPRESSION: 1. No pulmonary embolus. 2. 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 Correlate with echocardiogram. 3. Bilateral pleural effusions and diffuse interstitial thickening suggesting interstitial and pulmonary edema. This is potentially related to CHF. Infection is less likely. 4. Right upper lobe ground-glass nodule, nonspecific. Follow-up in six months is recommended. Dictated by: Karime Santizo M.D. on 06/04/2023 at 18:33 Approved by: Karime Santizo M.D. on 06/04/2023 at 18:41
--- NOTE | 2023-06-04 17:38 | PM.PN.1 ---
Subjective Subjective Date Patient Seen: 06/04/23 Time Patient Seen: 08:00 Interval history: Ms. Parker was feeling improved and white count was improving so plan was to discharge on oral antibiotics. However she developed chest pressure, shortness of breath. Vitals found atrial fibrillation with rapid rate and she was given IV metoprolol with minimal improvement. EKG showed atrial fibrillation. Initial troponin was not elevated. Chest xray concerning for possible pulmonary edema. Her blood pressure was stable, her oxygen sats were in the 80s, she was placed on nasal cannula. Labs showed elevated d-dimer, she was ordered for CTA. Exam Vital Signs (past 8 hours): - 06/04/23 15:00 06/04/23 15:05 06/04/23 15:45 Temperature 97.3 F L Pulse Rate 128 H 128 H Respiratory Rate 17 Blood Pressure 133/77 Pulse Oximetry 88 L 92 98 Oxygen Flow Rate 0 2 2 Oxygen Delivery Method Room Air Oxygen Flow Rate 2 Narrative Exam Narrative: GEN: no acute distress CV: irregular, no murmurs PULM: clear bilaterally ABD: soft, tender in right lower quadrant, no rebound/guarding EXT: warm and well perfused with no edema Objective Labs 06/04/23 15:45 06/04/23 15:45 Labs: Laboratory Results - last 24 hr 06/04/23 06/04/23 06/04/23 05:55 05:55 15:45 WBC 11.0 RBC 3.53 L Hgb 9.9 L Hct 29.6 L MCV 84.0 MCH 28.1 MCHC 33.5 RDW 14.7 Plt Count 214 D-Dimer Sodium 137 135 L Potassium 4.4 4.5 Chloride 106 102 Carbon Dioxide 27 27 BUN 23 H 23 H Creatinine 1.24 H 1.14 H Estimated GFR 47 L 52 L BUN/Creatinine Ratio 18.5 20.2 Glucose 156 H 201 H Lactate Calcium 7.9 L 8.5 Magnesium 2.2 Troponin I 0.015 06/04/23 06/04/23 06/04/23 15:45 15:45 15:45 WBC 14.4 H RBC 3.98 L Hgb 11.3 L Hct 33.6 L MCV 84.5 MCH 28.3 MCHC 33.5 RDW 14.0 Plt Count 273 D-Dimer 1472 H Sodium Potassium Chloride Carbon Dioxide BUN Creatinine Estimated GFR BUN/Creatinine Ratio Glucose Lactate 0.9 Calcium Magnesium Troponin I [facility] Medical History Abnormal mammogram of left breast Breast screening Colon polyps (08/31/14) Coronary artery disease Diabetes mellitus (~2011) Hyperlipidemia Hypertension (~2011) Incontinence Knee osteoarthritis NSTEMI (non-ST elevated myocardial infarction) (09/2018) Osteopenia (05/20/14) Recent heart attack Rheumatoid arthritis Sedentary lifestyle Stage II pressure ulcer of sacral region (~02/2023) Thyroid nodule Surgical History Anesthesia History of bilateral knee replacement (2009) History of colonoscopy with polypectomy (08/31/14) History of knee replacement History of knee replacement History of left cataract surgery (03/23/15) History of right cataract surgery (04/06/15) Status post delivery (12/21/78) Family History Brother Drowning Father Heart disease Mother Diabetes mellitus Sister Bone cancer Sister Bone cancer Social History marital status: household members: family and children Smoking Status: Never smoker alcohol intake: current substance use type: does not use Assessment & Plan Assessment & Plan narrative: 1. Acute appendicitis -patient with abdominal pain in RLQ, and findings of appendicitis on CT, with leukocytosis -appreciate general surgery consult -hold eliquis -antibiotics with zosyn switched to augmentin per surgery -improving with antibiotics, surgery recommends continued medical management for now 2. Atrial fibrillation, with RVR and pulmonary edema with acute hypoxemic respiratory failure -has known atrial fibrillation -possibly exacerbated by infection -now that not planned for surgery will restart anticoagulation -has been continued on oral metoprolol and still broke through with RVR -pulmonary edema on xray from RVR, will order lasix -metoprolol IV did not slow heart rate -try IV diltiazem to control rate -trend troponins due to chest pain -ordered echo, to be performed when rate is better controlled 3. Elevated D-dimer -CT angio to rule out PE 4. UTI -UA positive with nitrates, leuk esterase, bacteria -continue antibiotics as above -follow up cultures 5. Type 2 Diabetes on insulin -continue lantus 40U daily, but will need lowered dosing tomorrow if goes for surgery -ordered for insulin sliding scale 6. Hypertension -hold losartan, HCTZ 7. CAD -hold antiplatelet meds -continue metoprolol 8. Thyroid cancer -in process of getting surgical removal as oupatient
--- NOTE | 2023-06-04 17:44 | DI.ECHO.S_ITS ---
[facility] +---------+ : : [address] : [address] [place] : : : : [id number] : : : : Phone: [phone]+ Echocardiogram Report + + :Name: HENOK ARCE Study Date: 06/05/2023 Height: 63 in : :[facility] ReadingLocation: Weight: 240 lb : : Gender: Female BSA: 2.1 m2 : :: 1950 Age: 72 yrs BP: 112/57 mmHg: :Reason For Study: ATRIAL FIBRILLATION : :Ordering Physician: SANG, : :BRYSON Performed By: Eloina Duke : :Referring: BRYSON DOMÍNGUEZ : + + Interpretation Summary 1) Small left ventricular cavity with normal systolic functoin (EF 65-70%). 2) There are no obvious focal wall motion abnormalities noted but poor endocardial definition reduces the sensitivity for the detection of such. 3) The right ventricle is not well visualized. Grossly, normal right ventricular size with mildly reduced function. 4) Calcific mitral valve with mild to moderate stenosis (mean gradient 7mmHg). Gradient could be higher than expected due to elevated heart rate. There is trace mitral regurgitation. 5) There is a bioprosthetic aortic valve that is well seated and opens well (mean gradient 15mmHg). There is mild aortic regurgitation. 6) Compared to the Echo done 09/01/2020, stenotic [place] aortic valve has been replaced by a well functioning bioprosthetic aortic valve. Procedure: A two-dimensional transthoracic echocardiogram with color flow and Doppler was performed. The study quality was technically difficult. Comparison is made with the echocardiogram of 09/01/2020. Definity was not used due to history of possible allergic reaction. The patient was in atrial fibrillation with heart rates between 92-102 bpm during the exam. Left Ventricle: The left ventricular cavity is small. There is mild-moderate concentric left ventricular hypertrophy. The ejection fraction is estimated to be 65-70%. There are no obvious focal wall motion abnormalities noted but poor endocardial definition reduces the sensitivity for the detection of such. Diastolic function could not be accurately assessed due to unobtainable data. Right Ventricle: The right ventricle is not well visualized. Grossly, normal right ventricular size with mildly reduced function. Atria: The left atrium is moderately dilated. Right atrium not well visualized. There is no Doppler evidence for an interatrial shunt. Mitral Valve: The mitral valve leaflets are moderately calcified. There is moderate to severe mitral annular calcification. The mitral valve mean gradient is 7 mmHg. There is mild to moderate mitral stenosis. There is trace mitral regurgitation. Aortic Valve: There is a bioprosthetic aortic valve. The peak aortic velocity is 2.4 m/sec. The aortic valve mean gradient is 15 mmHg. There is mild aortic regurgitation. Tricuspid Valve: The right ventricular systolic pressure is estimated to be at least 39 mmHg based on an estimated right atrial pressure of 3 mm Hg. Pulmonic Valve: The pulmonic valve is not well visualized. There is no pulmonic valvular regurgitation. Great Vessels: The dimensions of the ascending aorta are normal. The IVC is of normal diameter and collapses greater than 50% with a sniff. This suggests a low right atrial pressure of 3 mm Hg. Pericardium/ Pleura There is no pericardial effusion. There is no pleural effusion. MMode/2D Measurements & Calculations LVIDd: 3.4 cm LVOT diam: 2.0 cm LVIDs: 2.0 cm asc Aorta Diam: 3.3 cm FS: 41.1 % Ao Arch Diam (Prox Trans): 2.8 cm IVSd: 1.3 cm LVPWd: 1.3 cm LV florez. diameter/BSA (cm/m^2): 1.6 LV sys. diameter/BSA (cm/m^2): 0.97 LA A2 area: 28.5 cm2 IVC diam: 2.0 cm LA A4 area: 23.4 cm2 LA length (vol): 5.6 cm LA vol: 101.6 ml LA vol index: 48.6 ml/m2 Doppler Measurements & Calculations Ao V2 max: 237.3 cm/sec LVOT Max Young: 127.2 cm/sec Ao V2 mean: 183.8 cm/sec LV V1 max P.5 mmHg Ao max P.5 mmHg LV V1 VTI: 19.2 cm Ao mean P.8 mmHg BRIAN(I,D): 1.7 cm2 Ao V2 VTI: 34.8 cm BRIAN(V,D): 1.6 cm2 sev ratio: 0.55 BRIAN indexed to BSA (cm^2/m^2): 0.81 Med Peak E' Young: 3.9 cm/sec TR max young: 298.2 cm/sec Lat Peak E' Young: 5.7 cm/sec TR max P.6 mmHg MVA(VTI): 1.2 cm2 PA V2 max: 108.9 cm/sec PA V2 mean: 78.7 cm/sec PA mean P.7 mmHg PA pr(Accel): 43.0 mmHg MV V2 mean: 132.2 cm/sec SV(LVOT): 58.9 ml MV mean P.2 mmHg MV V2 VTI: 49.3 cm Reading Physician:10:11 AM
[2023-06-04] MEDS: dilTIAZem 5 MG/ML SDV 10 MG IV (18:14)
[2023-06-04] MEDS: FUROSEMIDE 40 MG/4 ML VIAL IV (18:15)
[2023-06-04] MEDS: DILTIAZEM 125 MG/125 ML PIGGYBACK IV (19:10)
[2023-06-04 19:13] LABS: Troponin I 0.057 ng/mL (0.01-0.034)
[2023-06-04 20:45] LABS: MRSA (Nasal) PCR Not Detected (Not Detect)
[2023-06-04] MEDS: APIXABAN 5 MG TABLET PO (21:17)
[2023-06-05] VITALS (39 sets, daily range): BP systolic 112–158; BP diastolic 56–94; PULSE 74–119; RESP 11–38; TEMP 36.4–36.9; O2SAT 91–99
[2023-06-05] MEDS: OXYCODONE IR 5 MG TABLET PO ×2 (02:39→09:42)
[2023-06-05 06:20] LABS: Hematocrit 32.1 % (36-46); Hemoglobin 10.7 g/dL (12.0-16.0); Mean Corpuscular HGB Conc 33.5 % (30-36); Mean Corpuscular Hemoglobin 28.1 PG (26-34); Mean Corpuscular Volume 83.7 fL (80-100); Platelet Count 282 X10^3/uL (150-400); Red Blood Cell Count 3.83 X10^6/uL (4.0-5.2); Red Cell Distribution Width 14.3 % (11.6-14.8)
[2023-06-05 06:57] LABS: BUN Creatinine Ratio 16.7 (6-22); Blood Urea Nitrogen 17 mg/dL (7-17); Calcium 8.3 mg/dL (8.4-10.2); Carbon Dioxide 27 mmol/L (22-32); Chloride 100 mmol/L (98-107); Estimated Glomerular Filt Rate 59 mL/min (>60); Glucose 188 mg/dL (80-110); HEMOLYSIS < 15 (0-50); Potassium 3.8 mmol/L (3.4-5.1); Sodium 133 mmol/L (137-145)
[2023-06-05] MEDS: INSULIN GLARGINE 100 UNIT/ML 3ML PEN 40 UNIT SUBCUT (08:14)
[2023-06-05] MEDS: INSULIN LISPRO 100 UNIT/ML 3ML VIAL SUBCUT ×3 (08:14→20:32)
[2023-06-05] MEDS: METOPROLOL IR 50 MG TABLET PO ×2 (08:15→20:34)
[2023-06-05] MEDS: AMOXICILLIN/CLAV 875/125 MG 1 TAB PO ×2 (08:15→20:34)
[2023-06-05] MEDS: APIXABAN 5 MG TABLET PO ×2 (08:15→20:34)
--- NOTE | 2023-06-05 09:10 | PT.IPTN ---
Current Diagnoses Unspecified acute appendicitis (06/02/23) Physical Therapy Treatment Note M2 PT-IP Current Condition Start: 06/04/23 07:41 Freq: NEEDED Status: Active Protocol: Document 06/04/23 10:32 AW (Rec: 06/04/23 11:28 AW [id number]) Physical Therapy Current Condition Current Condition Evaluation Date 06/04/23 Treatment Diagnosis UTI, appendicitis, impaired mobility Onset Date 06/02/23 M3 PT-IP Subjective Start: 06/04/23 07:41 Freq: NEEDED Status: Active Protocol: Document 06/05/23 09:46 TS (Rec: 06/05/23 10:27 TS [id number]) Subjective Physical Therapy Visit Type Type Treatment Note Visit Start Time 09:10 Visit Stop Time 09:42 Total Visit Minutes 32 Number of PACKING AND STAMPING MACHINE OPERATOR Visits 1 Physical Therapy Visit Comments Patient Comments Pt found resting in chair, reports she will be in the hospital atleast another day, would like to get up to toilet , agreeable to PT. M4 PT-IP Mobility and Gait Start: 06/04/23 07:41 Freq: NEEDED Status: Active Protocol: Document 06/05/23 09:46 TS (Rec: 06/05/23 10:27 TS [id number]) PT-Bed Mobility Assessment Sit to Supine Sit to Supine Moderate Assistance,1 Person Assistance Scooting Scooting Up and Down in Bed Moderate Assistance PT-Transfer Assessment Sit to and From Stand Sit to and from Stand Minimal Assistance,1 Person Assistance,Use of Upper Extremities Equipment Transfer Assistive Device Bed Rail,Front Wheeled Walker Orthotic/Prosthetic Devices or Brace: No Comments Mobility Comments Pt found resting in chair, agreeable to PT. BP 116/65, 96HR, Spo2 94% on RA at rest. Pt requesting to use toilet. Sit to stand x1 from chair Tabitha with FWW, pt uses momentum to stand, provided cues for weight forward and BUE support on arms of chair. Pt ambulated ~10' SBA/CGA to toilet w/FWW, has a wide gait with heavy UE assist, doffed brief without assist, pt uses grab bar for lowering onto toilet. Sit to stand from toilet Tabitha with FWW, CHICKEN HANDLER performing pericare. Pt ambulated ~15' SBA/CGA to other side of bed, pt c/o chest pain, SOB, requesting back to bed, Spo2 96% on RA. Sit to supine ModA for LEs into bed, pt scooted hips laterally SBA with max cueing for pushing through heels and elbows. Pt scooted to HOB ModA x2 with use of transfer pad. Pt was left in bed with nursing tending to needs. Gait Assessment Gait Gait Assistance Required: Standby Assistance,Contact Guard Assist Distance (Feet) 25 Assistive Devices Assistive Device None,Gait Belt,Front Wheeled Walker Orthotic/Prosthetic Devices or Brace: No Gait Deviations General Gait Pattern Antalgic,Decreased Stride Length,Decreased Feet Clearance,Wide Based Gait Factors Limiting Gait Function Factors Limiting Gait Function Decreased Activity Tolerance, Decreased Sensation,Decreased Strength,Pain,Poor Balance Comments Gait Comments See mobility comments PT-Balance Assessment Sitting Balance and Reactions Static Sitting Balance Ability Good Dynamic Sitting Balance Ability Good Standing Balance and Reactions Static Standing Balance Ability Good Dynamic Standing Balance Ability Fair Device Used FWW M5 PT-IP Objective Assessments Start: 06/04/23 07:41 Freq: NEEDED Status: Active Protocol: Document 06/04/23 10:32 AW (Rec: 06/04/23 11:28 AW [id number]) Orientation Orientation/Cognition Level of Alertness Alert Orientation Name,Day of Week,Place, Situation Safety Awareness Understands Safety Issues Memory Description No Deficits Noted Gross Range of Motion Upper Extremity ROM Assessment Within Functional Limits Lower Extremity ROM Assessment Within Functional Limits Strength Upper Extremity Strength Assessment Bilaterally Impaired Shoulder 4-/5 Lower Extremity Strength Assessment Bilaterally Impaired Hip flexion 3+/5 Knee ext 4+/5; flex 4/5 Ankle DF 4/5; PF 4/5 Sensation Assessment Sensation Gross Sensation Right LE Impaired,Left LE Impaired Light Touch Impaired Comments Sensation Comments Neuropathy affects bilateral feet and ankles. M7 PT-IP Assessment and Plan Start: 06/04/23 07:41 Freq: NEEDED Status: Active Protocol: Document 06/05/23 09:46 TS (Rec: 06/05/23 10:27 TS [id number]) PT Summary Assessment and Plan Potential Rehabilitation Potential Good Summary Impairments Strength,Balance,Sensation,Bed Mobility,Transfers,Gait, Activity Tolerance Progress Towards Goals Slow Progress due to Medical Issues,Slow Progress due to Activity Tolerance Assessment Summary Pt is making slow progress with her mobility this session due to ongoing medical issues and poor activity tolerance. She performed sit to stand x2 Tabitha from chair and toilet, pt uses momentum to stand. She ambulated ~25' SBA/CGA, became SOB and reported chest pain after ~15' of gait, pt required rest break on bed. She requires max cueing for bed mobility and sit to stand sequencing. Pt has 4 stepsto complete with therapy but is unsafe at this time. PT continues to recommend home w/ assist and HH services. Goals Bed Mobility Goal Contact Guard Assistance Transfer Goal Standby Assistance,Four Wheeled Walker Gait Goal Standby Assistance,Four Wheel Walker Gait Distance 75 Other Goals - up/down 4 steps with unilateral rail and SBA Frequency of Treatment Frequency Of Treatment Once a Day Treatment Plan Physical Therapy Treatment Plan Bed Mobility Training,Transfer Training,Gait Training, Therapeutic Exercise,Balance Retraining,Discharge Planning, Hot or Cold Pack Precautions Other Precautions falls risk Recommendations To Nursing Amount of Assist Needed 1 Person Assist Discharge Recommendations PT Discharge Recommendations Home with Assistance,Home Health Transportation Needs at Discharge Private Vehicle
[2023-06-05] MEDS: dilTIAZem CD 120 MG CAP PO (10:46)
--- NOTE | 2023-06-05 11:11 | P.PN_ITS ---
Subjective Subjective Interval history: Patient still complains of RLQ pain with ambulation mainly, not worse with meals. She denies palpitations, chest pain or dyspnea today. Remains on dilt infusion as of early this AM. Taken off later in the afternoon, rate is <100. Started oral diltiazem in addition to metoprolol with echo now showing normal EF. Exam Vital Signs (past 8 hours): - 06/05/23 03:30 06/05/23 03:30 06/05/23 04:00 Temperature Pulse Rate 92 H Respiratory Rate 17 Blood Pressure 135/65 136/71 Pulse Oximetry 98 Oxygen Delivery Method Oxygen Flow Rate Fraction of Inspired Oxygen 06/05/23 04:00 06/05/23 04:30 06/05/23 04:32 Temperature Pulse Rate 91 H 88 89 Respiratory Rate 26 H 23 23 Blood Pressure Pulse Oximetry 99 97 98 Oxygen Delivery Method Oxygen Flow Rate Fraction of Inspired Oxygen 06/05/23 04:32 06/05/23 05:00 06/05/23 05:00 Temperature Pulse Rate 94 H Respiratory Rate 22 Blood Pressure 134/65 124/73 Pulse Oximetry 98 Oxygen Delivery Method Oxygen Flow Rate Fraction of Inspired Oxygen 06/05/23 05:30 06/05/23 05:30 06/05/23 06:00 Temperature Pulse Rate 96 H Respiratory Rate 19 Blood Pressure 135/59 L 119/56 L Pulse Oximetry 94 Oxygen Delivery Method Oxygen Flow Rate Fraction of Inspired Oxygen 06/05/23 06:00 06/05/23 07:00 06/05/23 06:30 Temperature Pulse Rate 91 H Respiratory Rate 24 Blood Pressure 112/57 L Pulse Oximetry 94 Oxygen Delivery Method Room Air Oxygen Flow Rate Fraction of Inspired Oxygen 06/05/23 06:30 06/05/23 07:00 06/05/23 07:00 Temperature Pulse Rate 94 H 96 H Respiratory Rate 18 23 Blood Pressure 121/59 L Pulse Oximetry 94 96 Oxygen Delivery Method Oxygen Flow Rate Fraction of Inspired Oxygen 06/05/23 07:30 06/05/23 07:30 06/05/23 08:00 Temperature Pulse Rate 101 H Respiratory Rate 18 Blood Pressure 130/58 L 134/60 Pulse Oximetry 96 Oxygen Delivery Method Oxygen Flow Rate Fraction of Inspired Oxygen 06/05/23 08:00 06/05/23 08:30 06/05/23 08:30 Temperature Pulse Rate 91 H 105 H Respiratory Rate 20 25 H Blood Pressure 115/64 Pulse Oximetry 95 96 Oxygen Delivery Method Oxygen Flow Rate Fraction of Inspired Oxygen 06/05/23 08:54 06/05/23 09:00 06/05/23 09:00 Temperature 98.4 F Pulse Rate 98 H Respiratory Rate 25 H Blood Pressure 112/73 Pulse Oximetry 96 Oxygen Delivery Method Oxygen Flow Rate Fraction of Inspired Oxygen 06/05/23 09:13 06/05/23 09:13 06/05/23 09:38 Temperature Pulse Rate 91 H 74 Respiratory Rate 21 Blood Pressure 116/65 Pulse Oximetry 95 96 Oxygen Delivery Method Oxygen Flow Rate Fraction of Inspired Oxygen 06/05/23 10:00 06/05/23 08:37 Temperature Pulse Rate 96 H 95 H Respiratory Rate 22 Blood Pressure Pulse Oximetry 97 96 Oxygen Delivery Method Room Air Oxygen Flow Rate 0 Fraction of Inspired Oxygen 21 Fraction of Inspired Oxygen 21 SaO2/FiO2 Ratio 457 Oxygen Delivery Method Room Air Oxygen Flow Rate 0 Narrative Exam Narrative: GEN: no acute distress CV: irregular,normal rate, no murmurs PULM: clear bilaterally ABD: soft, tender in right lower quadrant, no rebound/guarding EXT: warm and well perfused with no edema Objective Labs 06/05/23 06:08 06/05/23 06:08 Labs: Laboratory Results - last 24 hr 06/04/23 06/04/23 06/04/23 15:45 15:45 15:45 WBC 14.4 H RBC 3.98 L Hgb 11.3 L Hct 33.6 L MCV 84.5 MCH 28.3 MCHC 33.5 RDW 14.0 Plt Count 273 D-Dimer Sodium 135 L Potassium 4.5 Chloride 102 Carbon Dioxide 27 BUN 23 H Creatinine 1.14 H Estimated GFR 52 L BUN/Creatinine Ratio 20.2 Glucose 201 H Lactate 0.9 Calcium 8.5 Magnesium 2.2 Troponin I 0.015 Nasal Screen MRSA (PCR) 06/04/23 06/04/23 06/04/23 15:45 18:35 19:10 WBC RBC Hgb Hct MCV MCH MCHC RDW Plt Count D-Dimer 1472 H Sodium Potassium Chloride Carbon Dioxide BUN Creatinine Estimated GFR BUN/Creatinine Ratio Glucose Lactate Calcium Magnesium Troponin I 0.057 H Nasal Screen MRSA (PCR) Not detected 06/05/23 06/05/23 06:08 06:08 WBC 14.0 H RBC 3.83 L Hgb 10.7 L Hct 32.1 L MCV 83.7 MCH 28.1 MCHC 33.5 RDW 14.3 Plt Count 282 D-Dimer Sodium 133 L Potassium 3.8 Chloride 100 Carbon Dioxide 27 BUN 17 Creatinine 1.02 Estimated GFR 59 L BUN/Creatinine Ratio 16.7 Glucose 188 H Lactate Calcium 8.3 L Magnesium Troponin I 0.090 H Nasal Screen MRSA (PCR) [facility] Medical History Abnormal mammogram of left breast Breast screening Colon polyps (08/31/14) Coronary artery disease Diabetes mellitus (~2011) Hyperlipidemia Hypertension (~2011) Incontinence Knee osteoarthritis NSTEMI (non-ST elevated myocardial infarction) (09/2018) Osteopenia (05/20/14) Recent heart attack Rheumatoid arthritis Sedentary lifestyle Stage II pressure ulcer of sacral region (~02/2023) Thyroid nodule Surgical History Anesthesia History of bilateral knee replacement (2009) History of colonoscopy with polypectomy (08/31/14) History of knee replacement History of knee replacement History of left cataract surgery (03/23/15) History of right cataract surgery (04/06/15) Status post delivery (12/21/78) Family History Brother Drowning Father Heart disease Mother Diabetes mellitus Sister Bone cancer Sister Bone cancer Social History marital status: household members: family and children Smoking Status: Never smoker alcohol intake: current substance use type: does not use Assessment & Plan Assessment & Plan narrative: 1. Acute appendicitis -patient with abdominal pain in RLQ, and findings of appendicitis on CT, with leukocytosis -appreciate general surgery consult -held eliquis initially, then restarted when no plan for surgical intervention. -antibiotics with zosyn switched to augmentin per surgery -improving with antibiotics somewhat, surgery recommends continued medical management for now, consider repeat imaging if no improvement in RLQ pain to r/o abscess or collection. WBC remains elevated at 14. 2. Atrial fibrillation, with RVR and pulmonary edema with acute hypoxemic respiratory failure and myocardial injury -has known atrial fibrillation -possibly exacerbated by infection -restarted anticoagulation -has been continued on oral metoprolol and still broke through with RVR -pulmonary edema on xray from RVR, now improved s/p furosemide with no symptoms today. -metoprolol IV did not slow heart rate, improved with dilt then transitioned to IV dilt infusion. Will transition to oral dilt today with normal EF. -TTE with normal EF -EKG without acute ischemia, troponins slightly uptrending in setting of RVR, will continue to follow until downtrending. -CT angio was negative for PE. 3. UTI secondary to E. coli -UA positive with nitrates, leuk esterase, bacteria. Cultures positive for E. coli. -continue antibiotics as above 4. Type 2 Diabetes on insulin -continue lantus 40U daily, but will need lowered dosing tomorrow if goes for surgery -ordered for insulin sliding scale 5. Hypertension -hold losartan, HCTZ in favor of rate control 6. CAD, history of aortic valve replacement. -continue metoprolol -continue anticoagulation 7. Thyroid cancer -in process of getting surgical removal as oupatient Code: full, surrogate is patient's daughter. Dispo: Stable for likely downgrade from the ICU when off of diltiazem infusion and rate remains controlled. Probably remains inpatient for 1-2 more days prior to discharge likely home.
[2023-06-05 13:58] LABS: Troponin I 0.071 ng/mL (0.01-0.034)
--- NOTE | 2023-06-05 14:08 | CM.DPC ---
DCP Cont: Per MD, pt's discharge was cancelled yesterday due to chest pressure and AFIB and was moved to ICU for dilt drip and will attempt to wean her off dilt drip today and likely another CT scan of her abdomen to confirm no further issues with appendix as pt continues to have some pain and not yet medically stable to discharge today. Plan: SW to follow for ongoing plan of d/c home via son POV and jamar [facility] HH referral made and F2F and orders faxed and will just need d/c summary when medically stable. Shanika Hopkins MSW
[2023-06-05] MEDS: CLOPIDOGREL 75 MG TABLET PO (14:48)
[2023-06-05] MEDS: ATORVASTATIN 20 MG TABLET 80 MG PO (17:17)
[2023-06-06] VITALS (52 sets, daily range): BP systolic 123–150; BP diastolic 52–106; PULSE 88–131; RESP 11–38; TEMP 36.2–36.4; O2SAT 94–98
[2023-06-06 05:29] LABS: Add Manual Diff / Slide Review NO; Basophils Absolute Auto 100 /uL (0-100); Basophils Percent Auto 0.7 % (0-2); Eosinophils Absolute Auto 300 /uL (0-450); Eosinophils Percent Auto 2.9 % (2-4); Hematocrit 29.6 % (36-46); Hemoglobin 10.2 g/dL (12.0-16.0); Lymphocytes Absolute Auto 1400 /uL (1100-4500); Lymphocytes Percent Auto 13.5 % (25-40); Mean Corpuscular HGB Conc 34.6 % (30-36); Mean Corpuscular Hemoglobin 28.7 PG (26-34); Mean Corpuscular Volume 82.9 fL (80-100); Monocytes Absolute Auto 1000 /uL (0-900); Monocytes Percent Auto 9.5 % (3-14); Neutrophils Absolute Auto 7900 /uL (1500-7000); Neutrophils Percent Auto 73.4 % (50-75); Platelet Count 269 X10^3/uL (150-400); Red Blood Cell Count 3.57 X10^6/uL (4.0-5.2); White Blood Cell Count 10.7 X10^3/uL (4.5-11.0)
[2023-06-06 05:42] LABS: Alanine Aminotransferase 16 IU/L (<35); Albumin 3.1 g/dL (3.5-5.0); Albumin Globulin Ratio 0.9 (1.0-2.8); Alkaline Phosphatase 57 U/L (38-126); Aspartate Aminotransferase 18 IU/L (14-36); BUN Creatinine Ratio 17.6 (6-22); Bilirubin Total 0.4 mg/dL (0.2-1.3); Blood Urea Nitrogen 18 mg/dL (7-17); Calcium 8.3 mg/dL (8.4-10.2); Carbon Dioxide 27 mmol/L (22-32); Chloride 101 mmol/L (98-107); Estimated Glomerular Filt Rate 59 mL/min (>60); Globulin 3.3 g/dL (1.7-4.1); Glucose 193 mg/dL (80-110); HEMOLYSIS < 15 (0-50); Magnesium 2.1 mg/dL (1.6-2.3); Potassium 3.7 mmol/L (3.4-5.1); Sodium 135 mmol/L (137-145); Total Protein 6.4 g/dL (6.3-8.2)
[2023-06-06] MEDS: ACETAMINOPHEN 325 MG TABLET 650 MG PO (06:18)
[2023-06-06] MEDS: AMOXICILLIN/CLAV 875/125 MG 1 TAB PO ×2 (08:26→21:19)
[2023-06-06] MEDS: CLOPIDOGREL 75 MG TABLET PO (08:26)
[2023-06-06] MEDS: METOPROLOL IR 50 MG TABLET 100 MG PO ×2 (08:27→21:19)
[2023-06-06] MEDS: dilTIAZem CD 120 MG CAP PO ×2 (08:27→21:19)
[2023-06-06] MEDS: INSULIN GLARGINE 100 UNIT/ML 3ML PEN 40 UNIT SUBCUT (08:28)
[2023-06-06] MEDS: INSULIN LISPRO 100 UNIT/ML 3ML VIAL SUBCUT ×4 (08:28→21:18)
[2023-06-06] MEDS: APIXABAN 5 MG TABLET PO ×2 (08:29→21:19)
--- NOTE | 2023-06-06 09:35 | P.PN_ITS ---
Subjective Subjective Interval history: Her RLQ pain is better today. No nausea or vomiting. WBC back to normal today. HR bumped up this morning, metoprolol increased and patient complained of mild dyspnea, difficult to take a breath in. Will trial 20 mg IV lasix again. Exam Vital Signs (past 8 hours): - 06/06/23 04:00 06/06/23 08:00 Temperature 97.5 F L Pulse Rate 98 H 111 H Respiratory Rate 18 14 Blood Pressure 140/80 137/83 Pulse Oximetry 95 98 Oxygen Flow Rate 0 Fraction of Inspired Oxygen 21 SaO2/FiO2 Ratio 457 Oxygen Delivery Method Room Air Oxygen Flow Rate 0 Narrative Exam Narrative: GEN: no acute distress CV: irregular,normal rate, no murmurs PULM: mild bibasilar rales. ABD: soft, tender in right lower quadrant, no rebound/guarding EXT: warm and well perfused with no edema Objective Labs 06/06/23 04:35 06/06/23 04:35 Labs: Laboratory Results - last 24 hr 06/05/23 06/06/23 06/06/23 13:07 04:35 04:35 WBC 10.7 RBC 3.57 L Hgb 10.2 L Hct 29.6 L MCV 82.9 MCH 28.7 MCHC 34.6 RDW 14.0 Plt Count 269 Neut % (Auto) 73.4 Lymph % (Auto) 13.5 L [place] % (Auto) 9.5 Eos % (Auto) 2.9 Baso % (Auto) 0.7 Neut # (Auto) 7900 H Lymph # (Auto) 1400 [place] # (Auto) 1000 H Eos # (Auto) 300 Baso # (Auto) 100 Sodium 135 L Potassium 3.7 Chloride 101 Carbon Dioxide 27 BUN 18 H Creatinine 1.02 Estimated GFR 59 L BUN/Creatinine Ratio 17.6 Glucose 193 H Calcium 8.3 L Magnesium 2.1 Total Bilirubin 0.4 AST 18 ALT 16 Alkaline Phosphatase 57 Troponin I 0.071 H Total Protein 6.4 Albumin 3.1 L Globulin 3.3 Albumin/Globulin Ratio 0.9 L PFSH Medical History Abnormal mammogram of left breast Breast screening Colon polyps (08/31/14) Coronary artery disease Diabetes mellitus (~2011) Hyperlipidemia Hypertension (~2011) Incontinence Knee osteoarthritis NSTEMI (non-ST elevated myocardial infarction) (09/2018) Osteopenia (05/20/14) Recent heart attack Rheumatoid arthritis Sedentary lifestyle Stage II pressure ulcer of sacral region (~02/2023) Thyroid nodule Surgical History Anesthesia History of bilateral knee replacement (2009) History of colonoscopy with polypectomy (08/31/14) History of knee replacement History of knee replacement History of left cataract surgery (03/23/15) History of right cataract surgery (04/06/15) Status post delivery (12/21/78) Family History Brother Drowning Father Heart disease Mother Diabetes mellitus Sister Bone cancer Sister Bone cancer Social History marital status: household members: family and children Smoking Status: Never smoker alcohol intake: current substance use type: does not use Assessment & Plan Assessment & Plan narrative: 1. Acute appendicitis -patient with abdominal pain in RLQ, and findings of appendicitis on CT, with leukocytosis on admission. -appreciate general surgery consult, elected for medical management. -held eliquis initially, then restarted when no plan for surgical intervention. Continue eliquis today. -antibiotics with zosyn switched to augmentin per discussion with surgery -improving with antibiotics now with resolved leukocytosis. Continue augmentin for 10-14 day total course. 2. Atrial fibrillation, with RVR and pulmonary edema with acute hypoxemic respiratory failure and myocardial injury -has known atrial fibrillation -possibly exacerbated by infection and pain. -restarted anticoagulation -has been continued on oral metoprolol and still broke through with RVR -pulmonary edema on xray from RVR, improved with furosemide initially. Return of dyspnea today will give another dose of furosemide. Likely due to RVR return today. -increase metoprolol to 100 mg BID, diltiazem 120 mg daily. Change dilt to BID if BP tolerates and rate remains high. -TTE with normal EF -EKG without acute ischemia, troponins slightly uptrending in setting of RVR, will continue to follow until downtrending. -CT angio was negative for PE. 3. UTI secondary to E. coli -UA positive with nitrates, leuk esterase, bacteria. Cultures positive for E. coli. -continue augmentin, per cultures covers her E. coli. Now likely treated given duration of therapy for appendicitis. 4. Type 2 Diabetes on insulin -continue lantus 40U daily, but will need lowered dosing tomorrow if goes for surgery -ordered for insulin sliding scale 5. Hypertension -hold losartan, HCTZ in favor of rate control 6. CAD, history of aortic valve replacement. -continue metoprolol -continue anticoagulation 7. Thyroid cancer -in process of getting surgical removal as oupatient Code: full, surrogate is patient's daughter. Dispo: Remains inpatient. Probable discharge home in 1-2 days.
[2023-06-06] MEDS: FUROSEMIDE 20 MG/2 ML VIAL IV (09:45)
--- NOTE | 2023-06-06 10:00 | PT.IPTN ---
Current Diagnoses Unspecified acute appendicitis (06/02/23) Physical Therapy Treatment Note M2 PT-IP Current Condition Start: 06/04/23 07:41 Freq: NEEDED Status: Active Protocol: Document 06/04/23 10:32 AW (Rec: 06/04/23 11:28 AW [id number]) Physical Therapy Current Condition Current Condition Evaluation Date 06/04/23 Treatment Diagnosis UTI, appendicitis, impaired mobility Onset Date 06/02/23 M3 PT-IP Subjective Start: 06/04/23 07:41 Freq: NEEDED Status: Active Protocol: Document 06/06/23 10:27 TS (Rec: 06/06/23 11:02 TS [id number]) Subjective Physical Therapy Visit Type Type Treatment Note Visit Start Time 10:00 Visit Stop Time 10:26 Total Visit Minutes 26 Number of CLINICAL ADVISOR Visits 2 Physical Therapy Visit Comments Patient Comments Pt found with nursing, just returned to bed, agreeable to work with PT. M4 PT-IP Mobility and Gait Start: 06/04/23 07:41 Freq: NEEDED Status: Active Protocol: Document 06/06/23 10:27 TS (Rec: 06/06/23 11:02 TS [id number]) PT-Bed Mobility Assessment Supine to Sit Supine to Sit Moderate Assistance Sit to Supine Sit to Supine Moderate Assistance Scooting Scooting to Edge of Bed Standby Assistance Scooting Up and Down in Bed Moderate Assistance PT-Transfer Assessment Sit to and From Stand Sit to and from Stand Standby Assistance,Use of Upper Extremities Equipment Transfer Assistive Device Gait Belt,Front Wheeled Walker Orthotic/Prosthetic Devices or Brace: No Comments Mobility Comments Pt found resting in bed, BP 138/61, SPo2 97%, HR105. Supine to sit ModA with handheld for uprighting trunk, provided cues for coming up on elbows and pushing through hands on bed. Pt scooted to EOB with extra effort SBA, provided cues for feet on floor. Sit to stand from bed SBA with FWW, pt has no retroleaning or LOB. She ambulated to chair ~5' with FWW SBA with slow step thru gait and heavy UE assist, pt sat back in chair. Sit to stand from chair SBA, pt used BUE support on arms of chair to come into standing, she demonstrated good carryover from previous session. Pt ambulated another ~10' in room SBA with FWW, has no buckling or LOB. She performed steps x6 on step stool with BUE handrail assist CGA, pt became SOB, requested back to bed. Spo2 90% resting on EOB, HR 134 after mobility, recovered Spo2 to 98% after ~20 secs, HR decreased to 109. Sit to supine ModA for LEs into bed, pt requires cues for sequencing. Pt was left in bed with nursing tending to needs . Gait Assessment Gait Gait Assistance Required: Standby Assistance Distance (Feet) 15 Assistive Devices Assistive Device None,Gait Belt,Front Wheeled Walker Orthotic/Prosthetic Devices or Brace: No Gait Deviations General Gait Pattern Antalgic,Decreased Stride Length,Decreased Feet Clearance,Wide Based Gait Factors Limiting Gait Function Factors Limiting Gait Function Decreased Activity Tolerance, Decreased Sensation,Decreased Strength,Pain,Poor Balance Comments Gait Comments See mobility comments Stair Climbing Assessment Evaluation Level of Assist On Stairs Contact Guard Assistance Devices Stair Climbing Assistive Devices Left Railing,Right Railing Technique/Endurance Stair Climbing Direction Ascend and Descend Number of Steps Climbed 6 PT-Balance Assessment Sitting Balance and Reactions Static Sitting Balance Ability Good Dynamic Sitting Balance Ability Good Standing Balance and Reactions Static Standing Balance Ability Good Dynamic Standing Balance Ability Fair Device Used FWW M5 PT-IP Objective Assessments Start: 06/04/23 07:41 Freq: NEEDED Status: Active Protocol: Document 06/04/23 10:32 AW (Rec: 06/04/23 11:28 AW [id number]) Orientation Orientation/Cognition Level of Alertness Alert Orientation Name,Day of Week,Place, Situation Safety Awareness Understands Safety Issues Memory Description No Deficits Noted Gross Range of Motion Upper Extremity ROM Assessment Within Functional Limits Lower Extremity ROM Assessment Within Functional Limits Strength Upper Extremity Strength Assessment Bilaterally Impaired Shoulder 4-/5 Lower Extremity Strength Assessment Bilaterally Impaired Hip flexion 3+/5 Knee ext 4+/5; flex 4/5 Ankle DF 4/5; PF 4/5 Sensation Assessment Sensation Gross Sensation Right LE Impaired,Left LE Impaired Light Touch Impaired Comments Sensation Comments Neuropathy affects bilateral feet and ankles. M7 PT-IP Assessment and Plan Start: 06/04/23 07:41 Freq: NEEDED Status: Active Protocol: Document 06/06/23 10:27 TS (Rec: 06/06/23 11:02 TS [id number]) PT Summary Assessment and Plan Potential Rehabilitation Potential Good Summary Impairments Strength,Balance,Sensation,Bed Mobility,Transfers,Gait, Activity Tolerance Progress Towards Goals Slow Progress due to Medical Issues,Slow Progress due to Activity Tolerance Assessment Summary Pt made some progress with her mobility but remains limited by medical issues and her activity tolerance. She required ModA for supine to sit/sit to supine. She progressed her sit to stand to SBA from higher surface of bed and lower surface of chair with FWW, she demonstrates good carryover from previous sessions. She continues to ambulate short distances SBA, denied any SOB or dizziness with gait. She performed steps x6 with BUE handrail assist, has some SOB, Spo2 desat to 90 % with stair training. PT is recommending return home with assist and HHPT. Pt has most difficulty with bed mobility but she sleeps in a recliner at home. Pt would benefit from continued skilled therapy. Goals Bed Mobility Goal Contact Guard Assistance Transfer Goal Standby Assistance,Four Wheeled Walker Gait Goal Standby Assistance,Four Wheel Walker Gait Distance 75 Other Goals Continue to conduct stair training, progress gait. Frequency of Treatment Frequency Of Treatment Once a Day Treatment Plan Physical Therapy Treatment Plan Bed Mobility Training,Transfer Training,Gait Training, Therapeutic Exercise,Balance Retraining,Discharge Planning, Hot or Cold Pack Precautions Other Precautions falls risk Recommendations To Nursing Amount of Assist Needed 1 Person Assist Discharge Recommendations PT Discharge Recommendations Home with Assistance,Home Health Transportation Needs at Discharge Private Vehicle
--- NOTE | 2023-06-06 10:36 | CM.DPC ---
DCP Continued: SENIOR PATROL AGENT reviewed EMR. Per provider in rounds, patient likely to d/c tomorrow after another day of monitoring her heart. SENIOR PATROL AGENT entered room and introduced self and role. Patient reports she was told likely d/c tomorrow. Patient reports her son can transport her tomorrow. Patient reports on board with [facility] d/c plan. SENIOR PATROL AGENT spoke with Mina at [facility]. They report all they need is a d/c summary and appreciated the update. Plan: patient will d/c home with son when medically stable. Potentially tomorrow. Transport with son in POV. CM team will fax [facility] d/c summary when available. CM team will continue to follow as needed. SAYRA Solorzano
[2023-06-06] MEDS: ATORVASTATIN 20 MG TABLET 80 MG PO (16:06)
[2023-06-06] MEDS: ONDANSETRON 4 MG/2 ML INJ IV (16:06)
[2023-06-07] VITALS: PULSE 107; RESP 17
[2023-06-07 00:30] VITALS: PULSE 105; RESP 24
[2023-06-07 04:28] VITALS: BP 123/69; PULSE 72; RESP 18; TEMP 36; O2SAT 97
[2023-06-07 05:23] LABS: Add Manual Diff / Slide Review NO; Basophils Absolute Auto 100 /uL (0-100); Eosinophils Absolute Auto 400 /uL (0-450); Eosinophils Percent Auto 2.8 % (2-4); Hematocrit 30.1 % (36-46); Lymphocytes Absolute Auto 1800 /uL (1100-4500); Lymphocytes Percent Auto 14.4 % (25-40); Mean Corpuscular HGB Conc 33.3 % (30-36); Mean Corpuscular Hemoglobin 27.5 PG (26-34); Mean Corpuscular Volume 82.5 fL (80-100); Monocytes Absolute Auto 1000 /uL (0-900); Neutrophils Absolute Auto 9200 /uL (1500-7000); Neutrophils Percent Auto 73.8 % (50-75); Platelet Count 318 X10^3/uL (150-400); Red Blood Cell Count 3.64 X10^6/uL (4.0-5.2); White Blood Cell Count 12.5 X10^3/uL (4.5-11.0)
[2023-06-07 05:29] LABS: Alanine Aminotransferase 18 IU/L (<35); Albumin 3.1 g/dL (3.5-5.0); Albumin Globulin Ratio 0.9 (1.0-2.8); Alkaline Phosphatase 57 U/L (38-126); Aspartate Aminotransferase 20 IU/L (14-36); BUN Creatinine Ratio 21.1 (6-22); Bilirubin Total 0.2 mg/dL (0.2-1.3); Blood Urea Nitrogen 23 mg/dL (7-17); Calcium 8.2 mg/dL (8.4-10.2); Carbon Dioxide 27 mmol/L (22-32); Chloride 100 mmol/L (98-107); Estimated Glomerular Filt Rate 55 mL/min (>60); Globulin 3.5 g/dL (1.7-4.1); Glucose 228 mg/dL (80-110); HEMOLYSIS < 15 (0-50); Potassium 3.8 mmol/L (3.4-5.1); Sodium 132 mmol/L (137-145); Total Protein 6.6 g/dL (6.3-8.2)
[2023-06-07 08:00] VITALS: BP 151/60; PULSE 85; RESP 20; TEMP 36.4; O2SAT 97
[2023-06-07] MEDS: METOPROLOL IR 50 MG TABLET 100 MG PO (08:05)
[2023-06-07] MEDS: CLOPIDOGREL 75 MG TABLET PO (08:06)
[2023-06-07] MEDS: APIXABAN 5 MG TABLET PO (08:06)
[2023-06-07] MEDS: AMOXICILLIN/CLAV 875/125 MG 1 TAB PO (08:06)
[2023-06-07] MEDS: dilTIAZem CD 120 MG CAP PO (08:06)
[2023-06-07] MEDS: INSULIN GLARGINE 100 UNIT/ML 3ML PEN 40 UNIT SUBCUT (08:07)
[2023-06-07] MEDS: INSULIN LISPRO 100 UNIT/ML 3ML VIAL SUBCUT ×2 (08:07→11:57)
--- NOTE | 2023-06-07 08:45 | PT.IPTN ---
Current Diagnoses Unspecified acute appendicitis (06/02/23) Physical Therapy Treatment Note M2 PT-IP Current Condition Start: 06/04/23 07:41 Freq: NEEDED Status: Active Protocol: Document 06/04/23 10:32 AW (Rec: 06/04/23 11:28 AW [id number]) Physical Therapy Current Condition Current Condition Evaluation Date 06/04/23 Treatment Diagnosis UTI, appendicitis, impaired mobility Onset Date 06/02/23 M3 PT-IP Subjective Start: 06/04/23 07:41 Freq: NEEDED Status: Active Protocol: Document 06/07/23 09:40 TS (Rec: 06/07/23 10:16 TS [id number]) Subjective Physical Therapy Visit Type Type Treatment Note Visit Start Time 08:45 Visit Stop Time 09:38 Total Visit Minutes 53 Number of LIGHT RAIL OPERATOR Visits 3 Physical Therapy Visit Comments Patient Comments Pt found resting in chair, pt discussing care with hospitalist, pt agreeable to PT. M4 PT-IP Mobility and Gait Start: 06/04/23 07:41 Freq: NEEDED Status: Active Protocol: Document 06/07/23 09:40 TS (Rec: 06/07/23 10:16 TS [id number]) PT-Bed Mobility Assessment Sit to Supine Sit to Supine Moderate Assistance Scooting Scooting Up and Down in Bed Moderate Assistance PT-Transfer Assessment Sit to and From Stand Sit to and from Stand Standby Assistance,Use of Upper Extremities Equipment Transfer Assistive Device Gait Belt,Front Wheeled Walker Orthotic/Prosthetic Devices or Brace: No Comments Mobility Comments Pt found resting in chair, BP 133/63 at rest, Spo2 97%, HR 84 at rest. Sit to stand x1 SBA with FWW, pt c/o discomfort in brief, pt had BM , she stood for removal of brief, pt c/o lightheadedness and weak knees standing ~ 90secs. Sit to stand from chair again SBA with FWW for pericare from FUEL CELL ENGINEER, again pt c/ o of weak knees and some lightheadedness, HR increased to 133, pt sat back in chair. BP taken in sitting 121/58, sit to stand for BP with FWW SBA 109/81. Pt ambulated in room ~25' SBA with FWW and heavy UE assist, after ~20' pt c/o lightheadedness and weak knees, pt sat back in chair for rest. Pt performed stairs x4 with BUE handrail assist SBA, provided cues for sequencing, pt requested back to bed. Sit to supine ModA for LEs into bed, pt laterally scooted SBA for repositioning in bed. She required ModA x2 for scooting to HOB, provided cues for pushing through heels and handrail assist. Pt was left in bed with FUEL CELL ENGINEER tending to needs, RN notified of lightheadedness. Gait Assessment Gait Gait Assistance Required: Standby Assistance Distance (Feet) 25 Assistive Devices Assistive Device None,Gait Belt,Front Wheeled Walker Orthotic/Prosthetic Devices or Brace: No Gait Deviations General Gait Pattern Antalgic,Decreased Stride Length,Decreased Feet Clearance,Wide Based Gait Factors Limiting Gait Function Factors Limiting Gait Function Decreased Activity Tolerance, Decreased Sensation,Decreased Strength,Pain,Poor Balance Comments Gait Comments Pt has slow step thru gait with flexed posture leaning UEs heavily on FWW. See mobility comments. Stair Climbing Assessment Evaluation Level of Assist On Stairs Standby Assistance Devices Stair Climbing Assistive Devices Left Railing,Right Railing Technique/Endurance Stair Climbing Direction Ascend and Descend Number of Steps Climbed 4 PT-Balance Assessment Sitting Balance and Reactions Static Sitting Balance Ability Good Dynamic Sitting Balance Ability Good Standing Balance and Reactions Static Standing Balance Ability Good Dynamic Standing Balance Ability Fair Device Used FWW M5 PT-IP Objective Assessments Start: 06/04/23 07:41 Freq: NEEDED Status: Active Protocol: Document 06/04/23 10:32 AW (Rec: 06/04/23 11:28 AW [id number]) Orientation Orientation/Cognition Level of Alertness Alert Orientation Name,Day of Week,Place, Situation Safety Awareness Understands Safety Issues Memory Description No Deficits Noted Gross Range of Motion Upper Extremity ROM Assessment Within Functional Limits Lower Extremity ROM Assessment Within Functional Limits Strength Upper Extremity Strength Assessment Bilaterally Impaired Shoulder 4-/5 Lower Extremity Strength Assessment Bilaterally Impaired Hip flexion 3+/5 Knee ext 4+/5; flex 4/5 Ankle DF 4/5; PF 4/5 Sensation Assessment Sensation Gross Sensation Right LE Impaired,Left LE Impaired Light Touch Impaired Comments Sensation Comments Neuropathy affects bilateral feet and ankles. M7 PT-IP Assessment and Plan Start: 06/04/23 07:41 Freq: NEEDED Status: Active Protocol: Document 06/07/23 09:40 TS (Rec: 08/24/23 10:16 TS [id number]) PT Summary Assessment and Plan Potential Rehabilitation Potential Good Summary Impairments Strength,Balance,Sensation,Bed Mobility,Transfers,Gait, Activity Tolerance Progress Towards Goals Slow Progress due to Medical Issues,Slow Progress due to Activity Tolerance Assessment Summary Pt continues to make slow progress with her mobility due to ongoing medical issues and poor activity tolerance. Pt HR stable at 84 at rest increases up to 130's with mobility and Spo2 remained in 90's throughout session. Pt c/ o lightheadedness, SOB and weak knees this morning with static standing in front of chair after ~60-90secs with gait and with steps, quickly fatigues with short spurts of mobility and requires frequent rest breaks. She did progress her stairs to SBA with BUE support on handrails x4 steps. PT continues to recommend home with assist and services. Goals Bed Mobility Goal Contact Guard Assistance Transfer Goal Standby Assistance,Four Wheeled Walker Gait Goal Standby Assistance,Four Wheel Walker Gait Distance 75 Other Goals Continue to conduct stair training, progress gait. Frequency of Treatment Frequency Of Treatment Once a Day Treatment Plan Physical Therapy Treatment Plan Bed Mobility Training,Transfer Training,Gait Training, Therapeutic Exercise,Balance Retraining,Discharge Planning, Hot or Cold Pack Precautions Other Precautions falls risk Recommendations To Nursing Amount of Assist Needed 1 Person Assist Discharge Recommendations PT Discharge Recommendations Home with Assistance,Home Health Transportation Needs at Discharge Private Vehicle
--- NOTE | 2023-06-07 09:10 | P.DS_ITS ---
History of Present Illness History of Present Illness Date Patient Seen: 06/07/23 Time Patient Seen: 09:10 Chief complaint: RLQ Pain, Weakness Narrative: Per admitting provider, Ms. Parker is a 72W with PMH afib on eliquis, Type 2 DM on insulin, CAD, s/p TAVR, thyroid cancer, HTN who presents to the hospital with abdominal pain. She has been having decreased appetite, and right lower quadrant abdominal pain for the last day. She has no fevers, chills, nausea, vomiting, diarrhea. No dysuria. In the ED workup was done, vitals notable for afebrile, blood pressure 130s/60s, heart rate in the 80s, sats 97% on room air. Labs reviewed by me and notable for WBC 26.5. Na 138, BUN 31, creatinine 1.12. Lactate 2.5, improved to 1.8 with fluids. LFTs normal. Lipase. Urine with notable blood, nitrates, leuk esterase, and bacteria. CT abdomen and pelvis reviewed by me and notable for inflamed appendix. Surgery recommended observation and antibiotics and will continue to follow. She was ordered for antibiotics and admitted for further treatment. Discharge Providers Provider Date of admission: 06/02/23 15:32 Discharge Date: 06/07/23 Primary care physician: Chino Ruggiero MD Consults: 06/03/23 11:23 Consult to Physical Therapy Evaluate & Treat Comment: Physician Instructions: Evaluate and Treat 06/04/23 12:44 Consult to Home Health Routine Comment: inflamed appendix, conservative tx Reason For Exam: Set up RN/PT/OT/CONCAVER for discharge to home Discharge provider: Dave Lua DO Summary Hospital Course Discharge Diagnosis: 1. Acute appendicitis 2. Paroxysmal Atrial fibrillation, with RVR and pulmonary edema with acute hypoxemic respiratory failure and myocardial injury 3. UTI secondary to E. coli 4. Type 2 Diabetes on insulin 5. Hypertension 6. CAD, history of aortic valve replacement. 7. Thyroid cancer Hospital Course: This is a 72 year old female initially admitted for acute appendicitis. She has a history of thyroid cancer undergoing surgical evaluation currently, CAD with hx of aortic valve replacement, HTN, DM2 on insulin and paroxysmal atrial fibrillation. General surgery was consulted, and decision was made to persue medical management of her appendicits. Her leukocytosis improved slightly, but remains a bit elevated, but her abdominal pain improved with continued antibiotic therapy. She will continue with another 9 days of antibiotic therapy at discharge for a 2 week course. She was also found to have UTI with E.coli in her cultures, adequately treated with antibiotics for her appendicitis. Her course was complicated with an episode of afib with RVR that was difficult to control, with complicating pulmonary edema and acute respiratory failure. She r eceived a few doses of furosemide for shortness of breath with improvement. Echocardiogram showed a normal EF and no wall motion abnormalities. She was initially on a diltiazem infusion, able to be weaned with rate control on 100 mg BID of metoprolol and 120 mg of diltiazem BID on the day of discharge. She was recommended for home health after PT evaluation. No diabetes medication changes are recommended at the time of discharge. Time Spent with Patient Time spent: Greater than 30 minutes Exam Vital Signs (past 8 hours): - 06/07/23 04:28 06/07/23 07:00 06/07/23 08:00 Temperature 96.8 F L 97.6 F Pulse Rate 72 85 Respiratory Rate 18 20 Blood Pressure 123/69 151/60 H Pulse Oximetry 97 97 Oxygen Delivery Method Room Air Oxygen Flow Rate 0 0 Fraction of Inspired Oxygen 21 SaO2/FiO2 Ratio 457 Oxygen Delivery Method Room Air Oxygen Flow Rate 0 Narrative Exam Narrative: GEN: no acute distress CV: irregular,normal rate, no murmurs PULM: mild bibasilar rales. ABD: soft, NT, ND no rebound/guarding EXT: warm and well perfused with no edema Objective Labs 06/07/23 04:25 06/07/23 04:25 Labs: Laboratory Results - last 24 hr 06/07/23 06/07/23 04:25 04:25 WBC 12.5 H RBC 3.64 L Hgb 10.0 L Hct 30.1 L MCV 82.5 MCH 27.5 MCHC 33.3 RDW 14.0 Plt Count 318 Neut % (Auto) 73.8 Lymph % (Auto) 14.4 L [place] % (Auto) 8.0 Eos % (Auto) 2.8 Baso % (Auto) 1.0 Neut # (Auto) 9200 H Lymph # (Auto) 1800 [place] # (Auto) 1000 H Eos # (Auto) 400 Baso # (Auto) 100 Sodium 132 L Potassium 3.8 Chloride 100 Carbon Dioxide 27 BUN 23 H Creatinine 1.09 H Estimated GFR 55 L BUN/Creatinine Ratio 21.1 Glucose 228 H Calcium 8.2 L Magnesium 2.0 Total Bilirubin 0.2 AST 20 ALT 18 Alkaline Phosphatase 57 Total Protein 6.6 Albumin 3.1 L Globulin 3.5 Albumin/Globulin Ratio 0.9 L [facility] Medical History Abnormal mammogram of left breast Breast screening Colon polyps (08/31/14) Coronary artery disease Diabetes mellitus (~2011) Hyperlipidemia Hypertension (~2011) Incontinence Knee osteoarthritis NSTEMI (non-ST elevated myocardial infarction) (09/2018) Osteopenia (05/20/14) Recent heart attack Rheumatoid arthritis Sedentary lifestyle Stage II pressure ulcer of sacral region (~02/2023) Thyroid nodule Surgical History Anesthesia History of bilateral knee replacement (2009) History of colonoscopy with polypectomy (08/31/14) History of knee replacement History of knee replacement History of left cataract surgery (03/23/15) History of right cataract surgery (04/06/15) Status post delivery (12/21/78) Family History Brother Drowning Father Heart disease Mother Diabetes mellitus Sister Bone cancer Sister Bone cancer Social History marital status: household members: family and children Smoking Status: Never smoker alcohol intake: current substance use type: does not use Discharge Plan Discharge Plan Patient Disposition: Home Provider Discharge Comment: Ms. Parker was admitted with appendicitis and a UTI. She was seen by surgery and was recommended to have treatment with antibiotics. She did well with antibiotics and no surgery was needed at this time. Course was then complicated by atrial fibrillation with rapid rate improved with medication changes. She should follow closely with Dr. Shea, the surgeon, to make sure she continues to do well. She should see her PCP within one week. She should finish five more days of antibiotics. Discharge orders & Medications Prescriptions: New metoprolol succinate 100 mg tablet extended release 24 hr 100 mg PO BID 90 Days Qty: 180 0RF diltiazem HCl 120 mg capsule,extended release 24 hr 120 mg PO BID 90 Days Qty: 180 0RF amoxicillin-pot clavulanate 875-125 mg tablet 1 tab PO BID 9 Days Qty: 18 0RF losartan-hydrochlorothiazide 50-12.5 mg tablet 1 tab PO DAILY 90 Days Qty: 90 0RF Continued (DME) pen needle, diabetic [Comfort EZ Pen [place]] 29 gauge x 1/2 needle See Rx Instructions .ROUTE .MEDSUPPLY Qty: 100 3RF Rx Instructions: use to check blood glucose 3x per day (DME) True Metrix Glucose Test Strip Strip See Rx Instructions .ROUTE .COMPLEX Qty: 100 3RF Dose Instruction: USE TO TEST BLOOD SUGAR DAILY Rx Instructions: USE TO TEST BLOOD SUGAR DAILY Eliquis 5 mg tablet 5 mg PO BID Qty: 180 2RF (DME) Parking Permit... See Rx Instructions .Route .MEDSUPPLY Qty: 1 0RF Rx Instructions: Patient meets criteria for permanent parking placard. insulin lispro [Humalog KwikPen Insulin] 100 unit/mL insulin pen 1 sliding scale dose SUBCUT USEASDIRECTD Qty: 15 3RF Rx Instructions: slide scale 2-14 units SQ TID nitroglycerin 0.4 mg tablet, sublingual 0.4 mg SL Q5-15M PRN (Reason: chest pain) Qty: 90 11RF Rx Instructions: until response; do not exceed 3 doses per episode metformin 500 mg tablet 1,000 mg PO QAM Rx Instructions: TAKE TWO TABLETS BY MOUTH TWICE DAILY atorvastatin [Lipitor] 80 mg tablet 80 mg PO QPM insulin glargine [Lantus Solostar U-100 Insulin] 100 unit/mL (3 mL) insulin pen 40 unit SUBCUT QAM clopidogrel 75 mg tablet 75 mg PO QAM Discontinued metoprolol tartrate 50 mg tablet 50 mg PO BID Qty: 180 3RF losartan-hydrochlorothiazide 50-12.5 mg tablet 1 tab PO DAILY Follow up/Referrals: Sultana Shea MD [Physician] - 1 Week (appendicitis) Chino Ruggiero MD [Primary Care Provider] - 3-5 Days (UTI, appendicitis, no surgery done) Diet/Activity/Treatments Diet: Diet as Tolerated and Regular Diet comment: No restrictions Activity: As tolerated, no restrictions. Visit Report/Discharge Packet Instructions: DI for Appendicitis -- Adult, DI for Urinary Tract Infection (UTI) Stand Alone Forms: Patient Portal/API, Stroke Signs & Symptoms Discharge Data Primary Care Provider: Chino Ruggiero
--- NOTE | 2023-06-07 10:05 | CM.DPC ---
DCP Continued: From nursing staff, patient will d/c today. MEDICINE TECH reviewed EMR. MEDICINE TECH entered room and reintroduced self and role. Patient reports verbal understanding of DC plan. Patient agreed to [employer] for shower assistance. Patient asked MEDICINE TECH to call son to go over the d/c plan. CM Assistance Keisha kindly agreed to fax d/c summary and new order to [facility]. MEDICINE TECH spoke with Kathi at [facility] to confirm d/c plan for today. Kathi reports they accepted patient and all they would need is the d/c summary and new order to add [employer]. Kathi reports she is at the top of their list. MEDICINE TECH called son Eddie ([phone]). Eddie reports he's working in [place] today but could be here to pick up operator his mom at the latest 3:30pm. MEDICINE TECH reported d/c time to nursing staff. Plan: patient will d/c home today with son, transport at 3:30pm in POV. [facility] for PT/nursing/[facility] [employer]. Cm team will continue to follow as needed, SAYRA Solorzano
[2023-06-07 12:00] VITALS: BP 118/60; PULSE 86; RESP 20; TEMP 36.6; O2SAT 97
[2023-06-07] MEDS: ACETAMINOPHEN 325 MG TABLET 650 MG PO (12:54)
[2023-06-07] MEDS: OXYCODONE IR 5 MG TABLET PO (12:55)
== END 2023-06-07 16:00 | disposition home health service (06) | DRG 393 ==
LOC: ED 15:30 → AC 15:33 → ICU 06-04 18:36
PROVIDERS: Internal Medicine; Admitting Provider Internal Medicine; Emergency Provider Emergency Medicine; PCP Family Medicine; Referring Provider Emergency Medicine; Visit Provider Internal Medicine
DX: K35.80 Unspecified acute appendicitis (principal); J96.01 Acute respiratory failure with hypoxia; N39.0 Urinary tract infection, site not specified; I5A Non-ischemic myocardial injury (non-traumatic); J81.1 Chronic pulmonary edema; I48.0 Paroxysmal atrial fibrillation; E11.9 Type 2 diabetes mellitus without complications; I10 Essential (primary) hypertension; I25.10 Atherosclerotic heart disease of native coronary artery without angina pectoris; B96.20 Unspecified Escherichia coli [E. coli] as the cause of diseases classified elsewhere; E78.5 Hyperlipidemia, unspecified; Z79.01 Long term (current) use of anticoagulants; Z95.2 Presence of prosthetic heart valve; Z79.84 Long term (current) use of oral hypoglycemic drugs; Z79.4 Long term (current) use of insulin
CPT/HCPCS: 36415; 36592; 71045; 71275; 74177; 80048; 80053; 81001; 82962; 83605; 83690; 83735; 84484; 85007; 85025; 85027; 85379; 87040; 87077; 87086; 87186; 87797; 93005; 93306; 96365; 96367; 96375; 97116; 97162; 97530; 99284; 99285; J0696; J1815; J1940; J2270; J2405; J2543; Q9967

== ENCOUNTER 2023-06-08 14:09 | Inpatient (IN) | payer OTHER, SELFPAY ==
[2023-06-02 16:53] VITALS: BMI 42.5
[2023-06-08] VITALS (49 sets, daily range): BP systolic 97–154; BP diastolic 54–96; PULSE 78–161; RESP 8–29; TEMP 36–36.6; O2SAT 93–99; BMI 43.9
--- NOTE | 2023-06-08 14:18 | DI.RAD.S_ITS ---
PROCEDURE: XR CHEST 1V INDICATIONS: chest pain TECHNIQUE: One view of the chest was acquired. COMPARISON: [facility], CR, XR CHEST 1V, 06/04/2023, 15:38. [facility], CR, XR CHEST 1V, 03/22/2022, 11:25. FINDINGS: Surgical changes and devices: None. Lungs and pleura: Lungs are clear. No pleural effusions or pneumothorax. Mediastinum: Mediastinal contours appear normal. Heart size is normal. Bones and chest wall: No suspicious bony lesions. Overlying soft tissues appear unremarkable. IMPRESSION: Normal for age, source of current chest pain symptoms is not seen. Dictated by: Narayan Silver M.D. on 06/08/2023 at 14:53 Approved by: Narayan Silver M.D. on 06/08/2023 at 14:53
--- NOTE | 2023-06-08 14:19 | ED_ITS ---
HPI - General Adult General Chief complaint: Arrhythmia/Palpitations Stated complaint: Rapid Afib, Chest Pain Time Seen by Provider: 06/08/23 14:17 History of Present Illness HPI narrative: 72-year-old female with history of coronary artery disease, hypertension, NSTEMI, diabetes, on Eliquis for AFib presents by EMS for evaluation of rapid heart rate and chest pain that started about 40 minutes prior to arrival. She has no obvious provocation, palliation or radiation of her symptoms. EMS arrived to find her a rapid AFib in the 140s and 150s. She is not dizzy nor weak or lightheaded. She was recently seen in our emergency department on June 02 and admitted for appendicitis and she was treated conservatively with antibiotics only. She had a UTI with E coli that is also being covered by her home antibiotic therapy. She did have an episode of AFib with RVR that was difficult to control with pulmonary edema and subsequent respiratory failure in the hospitalization. She had been given Lasix for shortness of breath and had an echocardiogram noting a normal EF. Initially she was on diltiazem and eventually converted to metoprolol p.o.. Given her admission for possible surgical intervention her Eliquis was held the night of June 02, she missed both doses on June 03 as well as the morning dose on the . Related Data Home Medications Medication Instructions Recorded Confirmed atorvastatin 80 mg tablet (Lipitor) 80 mg PO QPM 06/02/23 06/02/23 clopidogrel 75 mg tablet 75 mg PO QAM 06/02/23 06/02/23 insulin glargine 100 unit/mL (3 40 unit SUBCUT QAM 06/02/23 06/02/23 mL) subcutaneous pen (Lantus Solostar U-100 Insulin) metformin 500 mg tablet 1,000 mg PO QAM 06/02/23 06/02/23 Previous Rx's Medication Instructions Recorded Parking Permit... #1 ea 09/08/20 pen needle, diabetic 29 gauge x #100 ea 03/09/22/ (Comfort EZ Pen [place]) blood sugar diagnostic (True #100 strips 11/09/22 Metrix Glucose Test Strip) apixaban 5 mg tablet (Eliquis) 5 mg PO BID #180 tabs 04/12/23 insulin lispro 100 unit/mL 1 sliding scale dose SUBCUT 07/11/23 subcutaneous pen (Humalog KwikPen USEASDIRECTD #15 mL (U-100) Insulin) nitroglycerin 0.4 mg sublingual 0.4 mg sublingual Q5-15M PRN chest 04/24/23 tablet pain #90 tabs amoxicillin 875 mg-potassium 1 tab PO BID 9 days #18 tabs 06/07/23 clavulanate 125 mg tablet diltiazem HCl 120 mg capsule,24 120 mg PO BID 90 days #180 caps 06/07/23 hr,extended release losartan 50 mg-hydrochlorothiazide 1 tab PO DAILY 90 days #90 tabs 06/07/23 12.5 mg tablet metoprolol succinate 100 mg 100 mg PO BID 90 days #180 tabs 06/07/23 tablet,extended release 24 hr Allergies Allergy/AdvReac Type Severity Reaction Status Date / Time Sulfa (Sulfonamide Allergy Mild RASH Verified 06/08/23 14:31 Antibiotics) Review of Systems Review of Systems Narrative: GENERAL: Denies chills, fatigue, malaise, fever, sweats. HEENT: Denies sinus pain, ear pain, sore throat, difficulty swallowing, dizziness. RESPIRATORY: Denies dyspnea, cough, wheezing, hemoptysis, sputum. CARDIOVASCULAR: See HPI GASTROINTESTINAL: Denies nausea, vomiting, abdominal pain, diarrhea, constipation, melena. : Denies dysuria, frequency, incontinence, hematuria, urinary retention. MUSCULOSKELETAL: denies weakness, joint pain, or bony pain SKIN: Denies rash, skin lesions, or other NEUROLOGIC: Denies weakness, headache, numbness, change in speech, confusion, seizures, incoordination. PSYCHIATRIC: No concerning psychosocial issues. 12 point review of systems is negative except for those stated above Patient History Medical History Abnormal mammogram of left breast Breast screening Colon polyps (08/31/14) Coronary artery disease Diabetes mellitus (~2011) Hyperlipidemia Hypertension (~2011) Incontinence Knee osteoarthritis NSTEMI (non-ST elevated myocardial infarction) (09/2018) Osteopenia (05/20/14) Recent heart attack Rheumatoid arthritis Sedentary lifestyle Stage II pressure ulcer of sacral region (~02/2023) Thyroid nodule Surgical History Anesthesia History of bilateral knee replacement (2009) History of colonoscopy with polypectomy (08/31/14) History of knee replacement History of knee replacement History of left cataract surgery (03/23/15) History of right cataract surgery (04/06/15) Status post delivery (12/21/78) Family History Brother Drowning Father Heart disease Mother Diabetes mellitus Sister Bone cancer Sister Bone cancer Social History marital status: household members: family and children Smoking Status: Never smoker alcohol intake: current substance use type: does not use Smoking Status: Never smoker alcohol intake frequency: holidays/special occasions only Substance Use Type: does not use Exam Narrative Exam Narrative: GENERAL: [72] year old patient appears stated age. Well-developed patient, in mild distress. HEAD: Atraumatic. Normocephalic. EYES: Pupils equal round and reactive. Extraocular motions intact. No scleral icterus. No injection or drainage. ENT: Nose without bleeding, purulent drainage. Throat without erythema, tonsillar hypertrophy or exudate. Airway patent. NECK: Trachea midline. Non tender CARDIOVASCULAR: Tachycardic and irregular rhythm without murmurs, gallops, or rubs. RESPIRATORY: Clear to auscultation. Breath sounds equal bilaterally. No wheezes, rales, or rhonchi. GASTROINTESTINAL: Abdomen soft, non-tender, nondistended. EXTREMITIES: No edema or joint tenderness. BACK: Nontender without deformity or crepitance. No flank tenderness. NEURO: AOx3. SKIN: No rash or erythema of visible areas Initial Vital Signs Initial Vital Signs: Vital Signs Temperature 97.8 F 06/08/23 14:18 Pulse Rate 160 H 06/08/23 14:18 Respiratory Rate 20 06/08/23 14:18 Blood Pressure 126/66 06/08/23 14:18 Pulse Oximetry 96 06/08/23 14:18 Oxygen Delivery Method Room Air 06/08/23 14:18 Course Orders Ordered: ED Orders 06/08/23 14:16 EKG-12 Lead Stat 06/08/23 14:18 XR chest 1V Stat 06/08/23 14:25 Complete Blood Count AUTO DIFF Stat Comprehensive Metabolic Panel Stat Lipase Stat MAG [Magnesium] Stat Procalcitonin Urgent Troponin & CK Cardiac Panel Stat Acetaminophen (Acetaminophen 325 Mg Tablet) 650 mg PO Q6H PRN PRN Reason: Fever/Mild Pain (1-3) Last Admin: 06/08/23 17:37 Dose: 650 mg Documented By: NR Amoxicillin/Clavulanate Potassium (Amoxicillin/Clav 875/125 Mg) 1 tab PO BID RENY Stop: 06/15/23 22:00 Apixaban (Apixaban 5 Mg Tablet) 5 mg PO BID [facility] Atorvastatin Calcium (Atorvastatin 20 Mg Tablet) 80 mg PO BEDTIME [facility] Clopidogrel Bisulfate (Clopidogrel 75 Mg Tablet) 75 mg PO DAILY [facility] Dextrose (Dextrose 50 % In Water 25 Gm/50 Ml Syringe) 25 gm IV PRN PRN PRN Reason: Hypoglycemia DILTIAZEM (Diltiazem 125 Mg/125 Ml-D5w) 125 mg in 125 mls @ 5 mls/hr IV TITRATE [facility]; Protocol Last Admin: 06/08/23 16:33 Dose: 5 mg/hr, 5 mls/hr Documented By: NR Magnesium Sulfate (Magnesium Sulfate) 2 gm in 50 mls @ 25 mls/hr IV NOW ONE Stop: 06/08/23 18:58 Insulin Glargine (Insulin Glargine 100 Unit/Ml 3ml Pen) 40 unit SUBCUT 0800 [facility] Insulin Human Lispro (Insulin Lispro 100 Unit/Ml 3ml Vial) 0 unit SUBCUT ACHS [facility]; Protocol Melatonin (Melatonin 3 Mg Tablet) 6 mg PO BEDTIME PRN PRN Reason: Insomnia Naloxone HCl (Naloxone 0.4 Mg/Ml Vial) 0.2 mg IV Q2MIN PRN PRN Reason: Opiate Reversal Polyethylene Glycol (Polyethylene Glycol 3350 17 Gm Powd.Pack) 17 gm PO DAILY PRN PRN Reason: Constipation Sennosides (Sennosides 8.6 Mg Tablet) 8.6 mg PO BID PRN PRN Reason: Constipation Discontinued Medications Acetaminophen (Acetaminophen 325 Mg Tablet) 650 mg PO NOW ONE Stop: 06/08/23 16:47 Diltiazem HCl (Diltiazem 5 Mg/Ml Sdv) 20 mg IV NOW ONE Stop: 06/08/23 14:25 Last Admin: 06/08/23 14:34 Dose: 20 mg Documented By: AMV Sodium Chloride (Normal Saline 0.9%) 1,000 mls @ 150 mls/hr IV CONT [facility] Last Admin: 06/08/23 14:34 Dose: 150 mls/hr Documented By: FLAQUITO Reevaluation(s) Reevaluation #1: initially HR down briefly with carditaran push Consultations Consultation #1: discussed with carbon paper coating machine setter cardiology (Aren). Agrees she is not a candidate for cardioversion. Recommends rate control and when time to DC he would prefer incre asing metoprol to 75mg PO BID Vital Signs Vital signs: Vital Signs - 8 hr 06/08/23 14:18 06/08/23 14:34 06/08/23 14:19 Temperature 97.8 F Pulse Rate 160 H 160 H 151 H Respiratory Rate 20 Blood Pressure 126/66 126/66 Pulse Oximetry 96 97 Oxygen Delivery Method Room Air 06/08/23 14:30 06/08/23 14:31 06/08/23 14:31 Temperature Pulse Rate 158 H 161 H Respiratory Rate 25 H 21 Blood Pressure 121/72 Pulse Oximetry 97 97 Oxygen Delivery Method 06/08/23 14:46 06/08/23 14:46 06/08/23 15:00 Temperature Pulse Rate 93 H 129 H Respiratory Rate 21 Blood Pressure 112/54 L Pulse Oximetry 96 99 Oxygen Delivery Method 06/08/23 15:01 06/08/23 15:01 06/08/23 15:15 Temperature Pulse Rate 115 H Respiratory Rate 21 Blood Pressure 116/70 112/59 L Pulse Oximetry 93 Oxygen Delivery Method 06/08/23 15:15 06/08/23 15:30 06/08/23 15:30 Temperature Pulse Rate 117 H 115 H Respiratory Rate 18 24 Blood Pressure 122/68 Pulse Oximetry 96 97 Oxygen Delivery Method 06/08/23 15:45 06/08/23 15:45 06/08/23 16:00 Temperature Pulse Rate 141 H Respiratory Rate 18 Blood Pressure 131/72 127/64 Pulse Oximetry 95 Oxygen Delivery Method 06/08/23 16:00 06/08/23 16:15 06/08/23 16:30 Temperature Pulse Rate 122 H 122 H 133 H Respiratory Rate 22 20 24 Blood Pressure Pulse Oximetry 97 Oxygen Delivery Method Room Air 06/08/23 16:33 06/08/23 16:33 06/08/23 16:45 Temperature Pulse Rate 128 H Respiratory Rate 19 Blood Pressure 135/65 97/66 Pulse Oximetry 98 Oxygen Delivery Method 06/08/23 16:45 Temperature Pulse Rate 122 H Respiratory Rate 24 Blood Pressure Pulse Oximetry 99 Oxygen Delivery Method Medical Decision Making Lab Data 06/08/23 14:25 06/08/23 14:25 Labs: Lab Results 06/08/23 06/08/23 06/08/23 Range/Units 14:25 14:25 14:25 WBC 15.1 H (4.5-11.0) X10^3/uL RBC 3.87 L (4.0-5.2) X10^6/uL Hgb 10.8 L (12.0-16.0) g/dL Hct 32.2 L (36-46) % MCV 83.3 (80-100) fL MCH 27.9 (26-34) PG MCHC 33.5 (30-36) % RDW 14.3 (11.6-14.8) % Plt Count 405 H (150-400) X10^3/uL Neut % (Auto) 80.1 H (50-75) % Lymph % (Auto) 12.3 L (25-40) % [place] % (Auto) 5.8 (3-14) % Eos % (Auto) 1.6 L (2-4) % Baso % (Auto) 0.2 (0-2) % Neut # (Auto) 45651 H (3129-2931) /uL Lymph # (Auto) 1900 (2282-2297) /uL [place] # (Auto) 900 (0-900) /uL Eos # (Auto) 200 (0-450) /uL Baso # (Auto) 0 (0-100) /uL Sodium 136 L (137-145) mmol/L Potassium 4.2 (3.4-5.1) mmol/L Chloride 101 (98-107) mmol/L Carbon Dioxide 27 (22-32) mmol/L BUN 21 H (7-17) mg/dL Creatinine 1.08 H (0.52-1.04) mg/dL Estimated GFR 55 L (>60) mL/min BUN/Creatinine Ratio 19.4 (6-22) Glucose 289 H (80-110) mg/dL Calcium 8.8 (8.4-10.2) mg/dL Magnesium 1.9 (1.6-2.3) mg/dL Total Bilirubin 0.2 (0.2-1.3) mg/dL AST 20 (14-36) IU/L ALT 20 (<35) IU/L Alkaline Phosphatase 54 (38-126) U/L Total Creatine Kinase 31 (30-135) U/L Troponin I 0.018 (0.01-0.034) ng/mL Total Protein 7.2 (6.3-8.2) g/dL Albumin 3.6 (3.5-5.0) g/dL Globulin 3.6 (1.7-4.1) g/dL Albumin/Globulin Ratio 1.0 (1.0-2.8) Lipase 124 D (23-300) U/L MDM Narrative Medical decision making narrative: CC: 72-year-old female with rapid heart rate and chest pressure, resolved prior to her arrival Complicating co-morbidities: Age, AFib on anticoagulation though she is missed 3 doses, recent hospitalization for appendicitis Data collected from: Patient Medical records reviewed: Prior notes reviewed in our EMR Differential considered, but not limited to: Rapid AFib versus other Exam documented above, pertinent findings include: Tachycardic and irregular, abdomen is soft, no increased work of breathing Lab Test results independently reviewed as above. Pertinent findings: Independently reviewed EKG as above Imaging studies independently reviewed: Consultations: Discussed with cardiology, see details above. Dr. David happy to accept Treatments: Dilt push followed by diltiazem drip with improved heart rate into the lower 100s Discussion: Patient presents with chest pressure and rapid AFib, as noted above she is not a candidate for cardioversion given her recent multiple missed doses of her anticoagulant. She is rate controlled symptoms improve and she requires hospitalization for ongoing treatment and stabilization of her condition Discharge Plan Departure Admit Date/Time: 06/08/23 16:53 Admit Provider: Andreas David
[2023-06-08 14:34] LABS: Add Manual Diff / Slide Review NO; Basophils Absolute Auto 0 /uL (0-100); Basophils Percent Auto 0.2 % (0-2); Eosinophils Absolute Auto 200 /uL (0-450); Eosinophils Percent Auto 1.6 % (2-4); Hematocrit 32.2 % (36-46); Hemoglobin 10.8 g/dL (12.0-16.0); Lymphocytes Absolute Auto 1900 /uL (1100-4500); Lymphocytes Percent Auto 12.3 % (25-40); Mean Corpuscular HGB Conc 33.5 % (30-36); Mean Corpuscular Hemoglobin 27.9 PG (26-34); Mean Corpuscular Volume 83.3 fL (80-100); Monocytes Absolute Auto 900 /uL (0-900); Monocytes Percent Auto 5.8 % (3-14); Neutrophils Absolute Auto 12100 /uL (1500-7000); Neutrophils Percent Auto 80.1 % (50-75); Platelet Count 405 X10^3/uL (150-400); Red Blood Cell Count 3.87 X10^6/uL (4.0-5.2); Red Cell Distribution Width 14.3 % (11.6-14.8); White Blood Cell Count 15.1 X10^3/uL (4.5-11.0)
[2023-06-08] MEDS: dilTIAZem 5 MG/ML SDV 20 MG IV (14:34)
[2023-06-08] MEDS: SODIUM CHLORIDE 0.9% 1,000 ML 150 ML IV (14:34)
[2023-06-08 14:48] LABS: Alanine Aminotransferase 20 IU/L (<35); Albumin 3.6 g/dL (3.5-5.0); Alkaline Phosphatase 54 U/L (38-126); Aspartate Aminotransferase 20 IU/L (14-36); BUN Creatinine Ratio 19.4 (6-22); Bilirubin Total 0.2 mg/dL (0.2-1.3); Blood Urea Nitrogen 21 mg/dL (7-17); Calcium 8.8 mg/dL (8.4-10.2); Carbon Dioxide 27 mmol/L (22-32); Chloride 101 mmol/L (98-107); Creatine Kinase 31 U/L (30-135); Estimated Glomerular Filt Rate 55 mL/min (>60); Globulin 3.6 g/dL (1.7-4.1); Glucose 289 mg/dL (80-110); HEMOLYSIS < 15 (0-50); Lipase 124 U/L (23-300); Potassium 4.2 mmol/L (3.4-5.1); Sodium 136 mmol/L (137-145); Total Protein 7.2 g/dL (6.3-8.2)
[2023-06-08 14:59] LABS: Troponin I 0.018 ng/mL (0.01-0.034)
[2023-06-08 16:08] LABS: Magnesium 1.9 mg/dL (1.6-2.3)
[2023-06-08] MEDS: DILTIAZEM 125 MG/125 ML PIGGYBACK IV (16:33)
--- NOTE | 2023-06-08 16:39 | PM.HP.1 ---
History of Present Illness History of Present Illness Date Patient Seen: 06/08/23 Time Patient Seen: 16:39 Chief complaint: Rapid Afib, Chest Pain Narrative: Ms. Parker is a 72W with PMH of A-fib on eliquis, Type 2 DM on insulin, CAD, s/p TAVR followed by Dr. Rosario, thyroid cancer, HTN and recent acute appendicitis who presents with chest pressure and found to be in A-fib RVR with rate of 160. Patient states she had discharged yesterday from our hospital at 4pm and returned home. She felt good until 9am this morning when she was just sitting in her recliner and had sudden-onset non-radiating substernal chest pressure. The pain was constant until EMS arrived and gave her a nitro. In the ED patient found to be in A-fib RVR up to 160's. She was given a push of dilt which did not work, so was started on dilt drip. Due to being off her eliquis for 4 doses for appendicitis no cardioversion was attempted in the ED. Patient currently on the floor and rate is 110-120's on 7.5mg/hr of dilt. She denies CP, palpitations or SOB. No abd pain or dysuria. [facility] Medical History Abnormal mammogram of left breast Breast screening Colon polyps (08/31/14) Coronary artery disease Diabetes mellitus (~2011) Hyperlipidemia Hypertension (~2011) Incontinence Knee osteoarthritis NSTEMI (non-ST elevated myocardial infarction) (09/2018) Osteopenia (05/20/14) Recent heart attack Rheumatoid arthritis Sedentary lifestyle Stage II pressure ulcer of sacral region (~02/2023) Thyroid nodule Surgical History Anesthesia History of bilateral knee replacement (2009) History of colonoscopy with polypectomy (08/31/14) History of knee replacement History of knee replacement History of left cataract surgery (03/23/15) History of right cataract surgery (04/06/15) Status post delivery (12/21/78) Family History Brother Drowning Father Heart disease Mother Diabetes mellitus Sister Bone cancer Sister Bone cancer Social History marital status: household members: family and children Smoking Status: Never smoker alcohol intake: current substance use type: does not use Meds Home Medications and Allergies Home Medications Medication Instructions Recorded Confirmed Type Parking Permit... #1 ea 09/08/20 06/08/23 Rx pen needle, diabetic 29 gauge x #100 ea 03/09/22 06/08/23 Rx 1/2 (Comfort EZ Pen [place]) blood sugar diagnostic (True #100 strips 11/09/22 06/08/23 Rx Metrix Glucose Test Strip) apixaban 5 mg tablet (Eliquis) 5 mg PO BID #180 tabs 04/12/23 06/08/23 Rx insulin lispro 100 unit/mL 1 sliding scale dose SUBCUT 04/24/23 06/08/23 Rx subcutaneous pen (Humalog KwikPen USEASDIRECTD #15 mL (U-100) Insulin) nitroglycerin 0.4 mg sublingual 0.4 mg sublingual Q5-15M PRN chest 04/24/23 06/08/23 Rx tablet pain #90 tabs atorvastatin 80 mg tablet (Lipitor) 80 mg PO QPM 06/02/23 06/08/23 History clopidogrel 75 mg tablet 75 mg PO QAM 06/02/23 06/08/23 History insulin glargine 100 unit/mL (3 40 unit SUBCUT QAM 06/02/23 06/08/23 History mL) subcutaneous pen (Lantus Solostar U-100 Insulin) metformin 500 mg tablet 1,000 mg PO QAM 06/02/23 06/08/23 History amoxicillin 875 mg-potassium 1 tab PO BID 9 days #18 tabs 06/07/23 06/08/23 Rx clavulanate 125 mg tablet diltiazem HCl 120 mg capsule,24 120 mg PO BID 90 days #180 caps 06/07/23 06/08/23 Rx hr,extended release losartan 50 mg-hydrochlorothiazide 1 tab PO DAILY 90 days #90 tabs 06/07/23 06/08/23 Rx 12.5 mg tablet metoprolol succinate 100 mg 100 mg PO BID 90 days #180 tabs 06/07/23 06/08/23 Rx tablet,extended release 24 hr Allergies Allergy/AdvReac Type Severity Reaction Status Date / Time Sulfa (Sulfonamide Allergy Mild RASH Verified 06/08/23 14:31 Antibiotics) Review of Systems Review of Systems Narrative: All other systems reviewed with the patient and are negative unless otherwise stated. Exam Vital Signs (past 8 hours): - 06/08/23 14:18 06/08/23 14:34 06/08/23 14:19 Temperature 97.8 F Pulse Rate 160 H 160 H 151 H Respiratory Rate 20 Blood Pressure 126/66 126/66 Pulse Oximetry 96 97 Oxygen Delivery Method Room Air 06/08/23 14:30 06/08/23 14:31 06/08/23 14:31 Temperature Pulse Rate 158 H 161 H Respiratory Rate 25 H 21 Blood Pressure 121/72 Pulse Oximetry 97 97 Oxygen Delivery Method 06/08/23 14:46 06/08/23 14:46 06/08/23 15:00 Temperature Pulse Rate 93 H 129 H Respiratory Rate 21 Blood Pressure 112/54 L Pulse Oximetry 96 99 Oxygen Delivery Method 06/08/23 15:01 06/08/23 15:01 06/08/23 15:15 Temperature Pulse Rate 115 H Respiratory Rate 21 Blood Pressure 116/70 112/59 L Pulse Oximetry 93 Oxygen Delivery Method 06/08/23 15:15 06/08/23 15:30 06/08/23 15:30 Temperature Pulse Rate 117 H 115 H Respiratory Rate 18 24 Blood Pressure 122/68 Pulse Oximetry 96 97 Oxygen Delivery Method 06/08/23 15:45 06/08/23 15:45 06/08/23 16:00 Temperature Pulse Rate 141 H Respiratory Rate 18 Blood Pressure 131/72 127/64 Pulse Oximetry 95 Oxygen Delivery Method 06/08/23 16:00 06/08/23 16:15 06/08/23 16:30 Temperature Pulse Rate 122 H 122 H 133 H Respiratory Rate 22 20 24 Blood Pressure Pulse Oximetry 97 Oxygen Delivery Method Room Air Oxygen Delivery Method Room Air Narrative Exam Narrative: GEN: no acute distress HEENT: moist mucous membranes, PERRL NECK: trachea midline, no JVD CV: rtachycardic, irregularly irregular, no murmurs PULM: clear bilaterally ABD: soft, nontender, nondistended, no organomegaly EXT: warm and well perfused with no edema NEURO: awake, alert, oriented, no focal deficits Objective Labs 06/08/23 14:25 06/08/23 14:25 Labs: Laboratory Results - last 24 hr 06/08/23 06/08/23 06/08/23 14:25 14:25 14:25 WBC 15.1 H RBC 3.87 L Hgb 10.8 L Hct 32.2 L MCV 83.3 MCH 27.9 MCHC 33.5 RDW 14.3 Plt Count 405 H Neut % (Auto) 80.1 H Lymph % (Auto) 12.3 L [place] % (Auto) 5.8 Eos % (Auto) 1.6 L Baso % (Auto) 0.2 Neut # (Auto) 78172 H Lymph # (Auto) 1900 [place] # (Auto) 900 Eos # (Auto) 200 Baso # (Auto) 0 Sodium 136 L Potassium 4.2 Chloride 101 Carbon Dioxide 27 BUN 21 H Creatinine 1.08 H Estimated GFR 55 L BUN/Creatinine Ratio 19.4 Glucose 289 H Calcium 8.8 Magnesium 1.9 Total Bilirubin 0.2 AST 20 ALT 20 Alkaline Phosphatase 54 Total Creatine Kinase 31 Troponin I 0.018 Total Protein 7.2 Albumin 3.6 Globulin 3.6 Albumin/Globulin Ratio 1.0 Lipase 124 D Assessment & Plan Assessment & Plan narrative: # atrial fibrillation with RVR -recently discharged on metoprolol 100 mg BID, diltiazem 120 mg daily but still having RVR -now on dilt drip, cards agreed with this and uptitrating metop -was off her eliquis for 4 doses due to possibility of surgery, therefore could not cardiovert in ED -echo on 06/04/23 with EF 65-70%, small LV size, mild-mod MS, normal bioprosthetic aortic valve -if BP drops or patient does not respond to dilt drip, will switch to amio drip -tele # chest pain -patient called EMS due to chest pressure which went away with nitro in the ambulance -trop neg x1, will trend -may warrant nuclear stress test, however recent echo normal # leukocytosis -possibly stress related from RVR, check procal -WBC 15, will trend -CXR normal, UA normal -monitor for fevers # recent appendicitis -recently put on course of augmentin for 9 days from 06/07 to finish on 06/15 -continue augmentin # Type 2 Diabetes on insulin -continue home lantus 40 units daily -ordered for insulin sliding scale # Hypertension -recently stopped losartan, HCTZ in favor of rate control # CAD, history of aortic valve replacement. -continue statin, plavix # recent UTI -treated with augmentin -UA now without pyuria # Thyroid cancer -in process of getting surgical removal as outpatient Code status is full code. DVT prophylaxis with eliquis. Proxy is patient's daughter. I have reviewed home meds and used all available resources to reconcile the home meds. This patient will be admitted as inpatient and will require greater than 2 midnights of hospital time to treat atrial fibrillation with RVR.
[2023-06-08 17:30] LABS: Procalcitonin 0.06 ng/mL (<0.5)
[2023-06-08] MEDS: ACETAMINOPHEN 325 MG TABLET 650 MG PO (17:37)
[2023-06-08 18:04] LABS: TSH w/ Reflex to FT4 2.51 uIU/mL (0.47-4.68)
[2023-06-08] MEDS: MAGNESIUM SULFATE 2 GM/50 ML PIGGYBACK IV (19:11)
[2023-06-08 19:39] LABS: Troponin I 0.195 ng/mL (0.01-0.034)
[2023-06-08] MEDS: MELATONIN 3 MG TABLET 6 MG PO (20:55)
[2023-06-08] MEDS: AMOXICILLIN/CLAV 875/125 MG 1 TAB PO (20:57)
[2023-06-08] MEDS: APIXABAN 5 MG TABLET PO (20:58)
[2023-06-08] MEDS: ATORVASTATIN 20 MG TABLET 80 MG PO (20:58)
[2023-06-08] MEDS: INSULIN LISPRO 100 UNIT/ML 3ML VIAL SUBCUT (21:13)
[2023-06-08 22:16] LABS: MRSA (Nasal) PCR Not Detected (Not Detect)
[2023-06-08] MEDS: DILTIAZEM 125 MG/125 ML PIGGYBACK 15 MG IV (23:36)
[2023-06-09] VITALS (47 sets, daily range): BP systolic 110–131; BP diastolic 53–72; PULSE 57–85; RESP 9–28; TEMP 36.1–36.6; O2SAT 91–99
[2023-06-09] MEDS: ACETAMINOPHEN 325 MG TABLET 650 MG PO ×2 (03:32→08:20)
[2023-06-09 05:21] LABS: Add Manual Diff / Slide Review NO; Basophils Absolute Auto 100 /uL (0-100); Basophils Percent Auto 0.6 % (0-2); Eosinophils Absolute Auto 300 /uL (0-450); Hematocrit 29.4 % (36-46); Hemoglobin 9.9 g/dL (12.0-16.0); Lymphocytes Absolute Auto 1900 /uL (1100-4500); Lymphocytes Percent Auto 14.2 % (25-40); Mean Corpuscular HGB Conc 33.7 % (30-36); Mean Corpuscular Volume 83.3 fL (80-100); Monocytes Absolute Auto 900 /uL (0-900); Monocytes Percent Auto 6.8 % (3-14); Neutrophils Absolute Auto 10100 /uL (1500-7000); Neutrophils Percent Auto 76.4 % (50-75); Platelet Count 349 X10^3/uL (150-400); Red Blood Cell Count 3.53 X10^6/uL (4.0-5.2); Red Cell Distribution Width 13.9 % (11.6-14.8); White Blood Cell Count 13.2 X10^3/uL (4.5-11.0)
[2023-06-09 05:26] LABS: BUN Creatinine Ratio 20.8 (6-22); Blood Urea Nitrogen 22 mg/dL (7-17); Calcium 8.3 mg/dL (8.4-10.2); Carbon Dioxide 24 mmol/L (22-32); Chloride 103 mmol/L (98-107); Estimated Glomerular Filt Rate 57 mL/min (>60); Glucose 217 mg/dL (80-110); HEMOLYSIS < 15 (0-50); Magnesium 2.1 mg/dL (1.6-2.3); Potassium 3.5 mmol/L (3.4-5.1); Sodium 135 mmol/L (137-145)
[2023-06-09 05:39] LABS: Troponin I 0.313 ng/mL (0.01-0.034)
[2023-06-09] MEDS: DILTIAZEM 125 MG/125 ML PIGGYBACK 15 MG IV (06:30)
[2023-06-09] MEDS: INSULIN LISPRO 100 UNIT/ML 3ML VIAL SUBCUT ×2 (07:43→11:45)
[2023-06-09] MEDS: POTASSIUM CHLORIDE 20 MEQ TAB 40 MEQ PO (07:49)
[2023-06-09] MEDS: INSULIN GLARGINE 100 UNIT/ML 3ML PEN 40 UNIT SUBCUT (07:49)
[2023-06-09] MEDS: dilTIAZem SR 60 MG 240 MG PO (08:09)
[2023-06-09] MEDS: APIXABAN 5 MG TABLET PO (08:09)
[2023-06-09] MEDS: AMOXICILLIN/CLAV 875/125 MG 1 TAB PO (08:09)
[2023-06-09] MEDS: CLOPIDOGREL 75 MG TABLET PO (08:09)
--- NOTE | 2023-06-09 09:07 | CM.DANOTE ---
Addendum entered by SAYRA Lan 06/09/23 12:05: ADD: Per , pt is medically stable to d/c home today with Resume HH. Pt's Dtr will be bedside this afternoon to provide transport home and ROBERT faxed new F2F and HH orders to [facility] (d/c summ not yet available) in case new HH referral and orders were needed. ROBERT left [facility] a msg regarding faxed clinicals and pt d/c to home today. BF Original Note: Patient is a 72 yo female who was a READMIT on 06/08/23 for Pain/Weakness. Pt has [employer] for insurance and her PCP is Chino Ruggiero. EMR was reviewed. Per , pt with hx of diabetes and thyroid CA and admitted for AFIB RVR with dilt drip started. Pt just discharged home on 06/07/23 after acute appendicitis treated conservatively with IV-Abx and son transported home and [facility] referral completed. ROBERT met bedside with pt and explained role and she confirms she lives outside of [place] and her son Eddie lives with her but works. Pt is independent with most ADLs but does not drive and states her son transports her to appointments. Pt has a walker at home but does not use it much but pt states she also is fairly sedentary and does not leave the house much. Pt used to attend a local gym for exercise and states this was helpful but now that she doesn't drive she does not leave home much. Pt also has a local neighbor/caregiver that assists while son is working. Pt confirms she was home for less than 24 hrs before readmission from chest pain. [facility] had not yet completed start of care and pt confirms she still wants HH at d/c. ROBERT faxed clinicals to [facility] to review and to determine if Resumption of Care orders needed or complete new referral since pt was Readmitted prior to start of care?? Plan: ROBERT to follow for plan of d/c home when medically stable via son POV and to confirm with [facility] if they need Resumption of Care Orders or new F2F and HH orders. SAYRA Lan Discharge Planning/Care Management Advanced directive, confirm from FAMILY Start: 06/08/23 22:49 Freq: Q24H Status: Active Protocol: Document 06/08/23 22:00 FR (Rec: 06/08/23 22:50 FR [id number]) Advance Directive, confirm on record Time 22:00 Person contacted NONE Copy received No CM Discharge Assessment Start: 06/09/23 09:04 Freq: Status: Active Protocol: Document 06/09/23 09:05 BF (Rec: 06/09/23 09:07 BF [id number]) Discharge Planning Assessment Assigned Cardiovascular Disease Specialist SAYRA Voss DPOA/Assigned Designee Name Fany Thibodeaux in [place] Contact Information [phone] Advance Directives? Yes Advance Directives on File No History Provided By Patient,Family Member,Medical Record Has Patient been admitted in last 30 Yes days? Comment Just discharged home with HH on 06/07/23 Prior Living Arrangements House Household Members children Comment Son lives with her Type of transporation used prior to Relies on Others admit Independent with ADL's Yes: mostly Is patient alert and oriented? Yes Needs Assistance With Home Chores / Shopping Caregiver for Another No Community Services used prior to Physical Therapy,Home Health admission: Aid,Home Health Nurse Comment Discharged recently with new [facility] referral made DME Already Rented / Owned FWW / Walker Patient/Family Preference Home with Home Health Barriers to Discharge No Discharge Plan Home with Home Health Community Services Physical Therapy,Home Health Aid,Home Health Nurse Transportation Arrangement Likely naun Morgan at d/c Referrals Initiated Home Health Additional Comment Open with [facility] from recent discharge If patient plan is home with home health Yes : Has signed face to face form been completed? Whiteboard Updated in Patient Room with Yes name and ext. # of Cardiovascular Disease Specialist Review Status In Process Please Provide Date Initial DC 06/09/23 Assessment Was Performed Next Review Type Continued Stay Review
--- NOTE | 2023-06-09 11:52 | PM.DS.1 ---
History of Present Illness History of Present Illness Date Patient Seen: 06/08/23 Time Patient Seen: 16:39 Chief complaint: Rapid Afib, Chest Pain Narrative: Ms. Parker is a 72W with PMH of A-fib on eliquis, Type 2 DM on insulin, CAD, s/p TAVR followed by Dr. Rosario, thyroid cancer, HTN and recent acute appendicitis who presents with chest pressure and found to be in A-fib RVR with rate of 160. Patient states she had discharged yesterday from our hospital at 4pm and returned home. She felt good until 9am this morning when she was just sitting in her recliner and had sudden-onset non-radiating substernal chest pressure. The pain was constant until EMS arrived and gave her a nitro. In the ED patient found to be in A-fib RVR up to 160's. She was given a push of dilt which did not work, so was started on dilt drip. Due to being off her eliquis for 4 doses for appendicitis no cardioversion was attempted in the ED. Patient currently on the floor and rate is 110-120's on 7.5mg/hr of dilt. She denies CP, palpitations or SOB. No abd pain or dysuria. Discharge Providers Provider Date of admission: 06/08/23 16:53 Discharge Date: 06/09/23 Primary care physician: Chino Ruggiero MD Discharge provider: Andreas David DO Summary Hospital Course Discharge Diagnosis: # atrial fibrillation with RVR -recently discharged on metoprolol 100 mg BID, diltiazem 120 mg daily but still having RVR -now on dilt drip, cards agreed -was off her eliquis for 4 doses due to possibility of surgery, therefore could not cardiovert in ED -echo on 06/04/23 with EF 65-70%, small LV size, mild-mod MS, normal bioprosthetic aortic valve -converted to sinus on dilt drip 15 mg/hr, transitioned to po dilt 240mg BID -lowered home metoprolol dose from 100 to 50mg to prevent too much reduction in BP as already soft with higher dose of dilt -tele # chest pain -patient called EMS due to chest pressure which went away with nitro in the ambulance -trop uptrended -spoke with cardiology who said no stress or cath needed given chest pain was during rapid A-fib and therefore less likely an NSTEMI # leukocytosis, improving -possibly stress related from RVR, procal negative at 0.06 -WBC 15, now downtrending -CXR normal, UA normal -no fevers or abd pain # recent appendicitis -recently put on course of augmentin for 9 days from 06/07 to finish on 06/15 -continue augmentin # Type 2 Diabetes on insulin -continue home lantus 40 units daily -ordered for insulin sliding scale # Hypertension -recently stopped losartan, HCTZ in favor of rate control # CAD, history of aortic valve replacement. -continue statin, plavix # recent UTI -treated with augmentin -UA now without pyuria # Thyroid cancer -in process of getting surgical removal as outpatient Hospital Course: Admitted for sudden-onset A-fib with RVR and associated chest pain. Chest pain resolved with nitro. Troponins uptrended. Spoke to cards and said ischemic workup not required given CP related to rapid A-fib. Placed on dilt drip and converted to SR while on 15 mg/hr. Transitioned to po dilt at 240mg 12hr release BID. Lowered metoprolol to 50mg to prevent too much BP reduction. Discharged home in good condition and had no recurrent CP. Time Spent with Patient Time spent: Greater than 30 minutes Exam Vital Signs (past 8 hours): - 06/09/23 04:00 06/09/23 04:00 06/09/23 04:00 Temperature 97.0 F L Pulse Rate 81 81 Respiratory Rate 16 16 Blood Pressure 121/62 121/62 Pulse Oximetry 97 97 Oxygen Delivery Method 06/09/23 04:04 06/09/23 04:00 06/09/23 04:15 Temperature Pulse Rate 80 79 Respiratory Rate 20 16 Blood Pressure Pulse Oximetry 98 97 Oxygen Delivery Method Room Air 06/09/23 04:31 06/09/23 04:31 06/09/23 05:00 Temperature Pulse Rate 81 58 L Respiratory Rate 27 H 15 Blood Pressure 123/56 L Pulse Oximetry 99 95 Oxygen Delivery Method 06/09/23 05:00 06/09/23 05:08 06/09/23 04:45 Temperature Pulse Rate 57 L 79 Respiratory Rate 16 20 Blood Pressure 115/56 L Pulse Oximetry 92 97 Oxygen Delivery Method 06/09/23 05:15 06/09/23 05:30 06/09/23 05:30 Temperature Pulse Rate 59 L 63 Respiratory Rate 16 15 Blood Pressure 123/58 L Pulse Oximetry 91 93 Oxygen Delivery Method 06/09/23 05:45 06/09/23 06:00 06/09/23 06:00 Temperature Pulse Rate 68 69 Respiratory Rate 15 14 Blood Pressure 114/54 L Pulse Oximetry 96 95 Oxygen Delivery Method 06/09/23 06:15 06/09/23 06:30 06/09/23 06:30 Temperature Pulse Rate 69 68 Respiratory Rate 15 14 Blood Pressure 116/58 L Pulse Oximetry 95 96 Oxygen Delivery Method 06/09/23 06:45 06/09/23 07:00 06/09/23 07:00 Temperature Pulse Rate 74 68 Respiratory Rate 27 H 28 H Blood Pressure 113/57 L Pulse Oximetry 97 97 Oxygen Delivery Method 06/09/23 07:15 06/09/23 07:30 06/09/23 07:30 Temperature 98 F Pulse Rate 67 66 Respiratory Rate 17 16 Blood Pressure 111/53 L Pulse Oximetry 96 97 Oxygen Delivery Method 06/09/23 07:45 06/09/23 08:00 06/09/23 08:00 Temperature Pulse Rate 67 70 Respiratory Rate 14 28 H Blood Pressure 119/70 Pulse Oximetry 97 97 Oxygen Delivery Method 06/09/23 08:15 06/09/23 08:30 06/09/23 08:41 Temperature Pulse Rate 73 71 73 Respiratory Rate 25 H 22 25 H Blood Pressure 115/56 L Pulse Oximetry 97 97 97 Oxygen Delivery Method 06/09/23 08:42 06/09/23 08:00 06/09/23 08:42 Temperature Pulse Rate 72 Respiratory Rate 22 Blood Pressure 115/56 L Pulse Oximetry 97 Oxygen Delivery Method Room Air 06/09/23 08:45 06/09/23 09:00 06/09/23 09:15 Temperature Pulse Rate 73 75 72 Respiratory Rate 23 15 9 L Blood Pressure Pulse Oximetry 97 96 96 Oxygen Delivery Method 06/09/23 09:30 06/09/23 09:45 06/09/23 10:00 Temperature Pulse Rate 71 71 73 Respiratory Rate 16 10 L 19 Blood Pressure Pulse Oximetry 96 96 97 Oxygen Delivery Method Oxygen Delivery Method Room Air Narrative Exam Narrative: GEN: no acute distress, sitting up eating a burger HEENT: moist mucous membranes, PERRL NECK: trachea midline, no JVD CV: regular rate and rhythm, no murmurs PULM: clear bilaterally ABD: soft, nontender, nondistended, no organomegaly EXT: warm and well perfused with no edema NEURO: awake, alert, oriented, no focal deficits Objective Labs 06/09/23 04:31 06/09/23 04:31 Labs: Laboratory Results - last 24 hr 06/08/23 06/08/23 06/08/23 14:25 14:25 14:25 WBC 15.1 H RBC 3.87 L Hgb 10.8 L Hct 32.2 L MCV 83.3 MCH 27.9 MCHC 33.5 RDW 14.3 Plt Count 405 H Neut % (Auto) 80.1 H Lymph % (Auto) 12.3 L Webster % (Auto) 5.8 Eos % (Auto) 1.6 L Baso % (Auto) 0.2 Neut # (Auto) 41770 H Lymph # (Auto) 1900 Webster # (Auto) 900 Eos # (Auto) 200 Baso # (Auto) 0 Sodium 136 L Potassium 4.2 Chloride 101 Carbon Dioxide 27 BUN 21 H Creatinine 1.08 H Estimated GFR 55 L BUN/Creatinine Ratio 19.4 Glucose 289 H Calcium 8.8 Magnesium 1.9 Total Bilirubin 0.2 AST 20 ALT 20 Alkaline Phosphatase 54 Total Creatine Kinase 31 Troponin I 0.018 Total Protein 7.2 Albumin 3.6 Globulin 3.6 Albumin/Globulin Ratio 1.0 Lipase 124 D Procalcitonin TSH Nasal Screen MRSA (PCR) 06/08/23 06/08/23 06/08/23 14:25 14:25 18:50 WBC RBC Hgb Hct MCV MCH MCHC RDW Plt Count Neut % (Auto) Lymph % (Auto) Webster % (Auto) Eos % (Auto) Baso % (Auto) Neut # (Auto) Lymph # (Auto) Webster # (Auto) Eos # (Auto) Baso # (Auto) Sodium Potassium Chloride Carbon Dioxide BUN Creatinine Estimated GFR BUN/Creatinine Ratio Glucose Calcium Magnesium Total Bilirubin AST ALT Alkaline Phosphatase Total Creatine Kinase Troponin I 0.195 H* Total Protein Albumin Globulin Albumin/Globulin Ratio Lipase Procalcitonin 0.06 TSH 2.51 Nasal Screen MRSA (PCR) 06/08/23 06/09/23 06/09/23 21:05 04:31 04:31 WBC 13.2 H RBC 3.53 L Hgb 9.9 L Hct 29.4 L MCV 83.3 MCH 28.0 MCHC 33.7 RDW 13.9 Plt Count 349 Neut % (Auto) 76.4 H Lymph % (Auto) 14.2 L Webster % (Auto) 6.8 Eos % (Auto) 2.0 Baso % (Auto) 0.6 Neut # (Auto) 38917 H Lymph # (Auto) 1900 Webster # (Auto) 900 Eos # (Auto) 300 Baso # (Auto) 100 Sodium Potassium Chloride Carbon Dioxide BUN Creatinine Estimated GFR BUN/Creatinine Ratio Glucose Calcium Magnesium 2.1 Total Bilirubin AST ALT Alkaline Phosphatase Total Creatine Kinase Troponin I Total Protein Albumin Globulin Albumin/Globulin Ratio Lipase Procalcitonin TSH Nasal Screen MRSA (PCR) Not detected 06/09/23 06/09/23 04:31 04:31 WBC RBC Hgb Hct MCV MCH MCHC RDW Plt Count Neut % (Auto) Lymph % (Auto) Webster % (Auto) Eos % (Auto) Baso % (Auto) Neut # (Auto) Lymph # (Auto) Webster # (Auto) Eos # (Auto) Baso # (Auto) Sodium 135 L Potassium 3.5 Chloride 103 Carbon Dioxide 24 BUN 22 H Creatinine 1.06 H Estimated GFR 57 L BUN/Creatinine Ratio 20.8 Glucose 217 H Calcium 8.3 L Magnesium Total Bilirubin AST ALT Alkaline Phosphatase Total Creatine Kinase Troponin I 0.313 H* Total Protein Albumin Globulin Albumin/Globulin Ratio Lipase Procalcitonin TSH Nasal Screen MRSA (PCR) [facility] Medical History Abnormal mammogram of left breast Breast screening Colon polyps (08/31/14) Coronary artery disease Diabetes mellitus (~2011) Hyperlipidemia Hypertension (~2011) Incontinence Knee osteoarthritis NSTEMI (non-ST elevated myocardial infarction) (09/2018) Osteopenia (05/20/14) Recent heart attack Rheumatoid arthritis Sedentary lifestyle Stage II pressure ulcer of sacral region (~02/2023) Thyroid nodule Surgical History Anesthesia History of bilateral knee replacement (2009) History of colonoscopy with polypectomy (08/31/14) History of knee replacement History of knee replacement History of left cataract surgery (03/23/15) History of right cataract surgery (04/06/15) Status post delivery (12/21/78) Family History Brother Drowning Father Heart disease Mother Diabetes mellitus Sister Bone cancer Sister Bone cancer Social History marital status: household members: children Smoking Status: Never smoker alcohol intake: current substance use type: does not use Discharge Plan Discharge Plan Patient Disposition: Home Provider Discharge Comment: You were admitted for rapid A-fib. We controlled this with IV medications. I've now increased your home diltiazem to prevent this from occurring again. I've also lowered your home metoprolol so your blood pressure doesn't drop too much. If you notice your BP is low at home while taking both the diltiazem and metoprolol, you may completely stop the metoprolol. Discharge orders & Medications Prescriptions: New diltiazem HCl 120 mg capsule,extended release 12 hr 240 mg PO BID Qty: 180 0RF Continued (DME) pen needle, diabetic [Comfort EZ Pen [place]] 29 gauge x 1/2 needle See Rx Instructions .ROUTE .MEDSUPPLY Qty: 100 3RF Rx Instructions: use to check blood glucose 3x per day (DME) True Metrix Glucose Test Strip Strip See Rx Instructions .ROUTE .COMPLEX Qty: 100 3RF Dose Instruction: USE TO TEST BLOOD SUGAR DAILY Rx Instructions: USE TO TEST BLOOD SUGAR DAILY Eliquis 5 mg tablet 5 mg PO BID Qty: 180 2RF (DME) Parking Permit... See Rx Instructions .Route .MEDSUPPLY Qty: 1 0RF Rx Instructions: Patient meets criteria for permanent parking placard. insulin lispro [Humalog KwikPen Insulin] 100 unit/mL insulin pen 1 sliding scale dose SUBCUT USEASDIRECTD Qty: 15 3RF Rx Instructions: slide scale 2-14 units SQ TID nitroglycerin 0.4 mg tablet, sublingual 0.4 mg SL Q5-15M PRN (Reason: chest pain) Qty: 90 11RF Rx Instructions: until response; do not exceed 3 doses per episode metformin 500 mg tablet 1,000 mg PO QAM Rx Instructions: TAKE TWO TABLETS BY MOUTH TWICE DAILY atorvastatin [Lipitor] 80 mg tablet 80 mg PO QPM insulin glargine [Lantus Solostar U-100 Insulin] 100 unit/mL (3 mL) insulin pen 40 unit SUBCUT QAM clopidogrel 75 mg tablet 75 mg PO QAM amoxicillin-pot clavulanate 875-125 mg tablet 1 tab PO BID 9 Days Qty: 18 0RF losartan-hydrochlorothiazide 50-12.5 mg tablet 1 tab PO DAILY 90 Days Qty: 90 0RF Changed metoprolol succinate 100 mg tablet extended release 24 hr 50 mg PO BID 90 Days Qty: 90 0RF Discontinued diltiazem HCl 120 mg capsule,extended release 24 hr 120 mg PO BID 90 Days Qty: 180 0RF Follow up/Referrals: Chino Ruggiero MD [Primary Care Provider] - 3-5 Days Visit Report/Discharge Packet Stand Alone Forms: Patient Portal/API, Stroke Signs & Symptoms Discharge Data Primary Care Provider: Chino Ruggiero Discharges patient from system. Discharge Date/Time: 06/09/23 14:00 Quality VTE Deep Vein Thrombosis/Pulmonary Embolism Present on Admission: No
== END 2023-06-09 14:00 | disposition home or self-care (01) | DRG 310 ==
LOC: ED 16:49 → ICU 17:21 → AC 06-12 15:09
PROVIDERS: Admitting Provider Student in an Organized Health Care Education/Training Program; Emergency Provider Emergency Medicine; PCP Family Medicine; Referring Provider Emergency Medicine; Visit Provider Student in an Organized Health Care Education/Training Program
DX: I48.91 Unspecified atrial fibrillation (principal); E11.9 Type 2 diabetes mellitus without complications; I25.10 Atherosclerotic heart disease of native coronary artery without angina pectoris; I10 Essential (primary) hypertension; D72.829 Elevated white blood cell count, unspecified; C73 Malignant neoplasm of thyroid gland; Z79.4 Long term (current) use of insulin
CPT/HCPCS: 36415; 71045; 80048; 80053; 82550; 82962; 83690; 83735; 84145; 84443; 84484; 85025; 87797; 93005; 96365; 96366; 96372; 96375; 96376; 99284; G0378; J1815; J3475

== ENCOUNTER 2023-06-16 17:31 | Observation (INO) | payer OTHER, SELFPAY ==
[2023-06-08 22:00] VITALS: BMI 43.9
[2023-06-16] VITALS (17 sets, daily range): BP systolic 110–158; BP diastolic 53–65; PULSE 55–70; RESP 16–20; TEMP 36.2–36.9; O2SAT 95–98; BMI 48.8
--- NOTE | 2023-06-16 18:10 | ED.SKABFB ---
HPI - Skin/Abscess/Foreign Bdy General Chief complaint: Skin/Abscess/Foreign Body Stated complaint: Bed Sores, Pain Mngmt Time Seen by Provider: 06/16/23 18:10 Source: patient and EMS Mode of arrival: EMS Limitations: no limitations History of Present Illness HPI narrative: 72-year-old female with history of coronary artery disease, atrial fibrillation on Eliquis with prior valve replacement, hypertension, diabetes with complaint of wounds on her buttocks and perineal area. Patient was recently hospitalized on 06/08 for atrial fibrillation and before that had hospitalization for appendicitis which was treated with antibiotics. Patient states she has not had any additional atrial fibrillation episodes. She states no fevers, no chest pain no shortness of breath, no nausea or vomiting, no diarrhea constipation. She is not having incontinence but she states she is not fast enough to make it to the bathroom she has not been performing perineal care or wound care for her buttocks. She states she had wound on her buttocks that was present on her last hospitalization and has been increasingly painful as well as rawness in the inguinal areas. Patient states today she pulled her brief off and caused some trauma to the skin and a little bit of bleeding. She states she is able to ambulate at home. She states there was discussion about home health care, they are supposedly a phone call but she never received it and it was never put in place. She has several sons at home that live with her but she states they do not help her with cleaning or hygiene. She has a neighbor who has been assisting her at times but they do not assist with the cleaning or hygiene. Patient's primary care is Dr. Oviedo. She states allergic to sulfa. No tobacco, occasional alcohol, no illicit. Related Data Home Medications Medication Instructions Recorded Confirmed atorvastatin 80 mg tablet (Lipitor) 80 mg PO QPM 06/02/23 06/16/23 clopidogrel 75 mg tablet 75 mg PO QAM 06/02/23 06/16/23 insulin glargine 100 unit/mL (3 40 unit SUBCUT QAM 06/02/23 06/16/23 mL) subcutaneous pen (Lantus Solostar U-100 Insulin) metformin 500 mg tablet 1,000 mg PO QAM 06/02/23 06/16/23 Previous Rx's Medication Instructions Recorded Parking Permit... #1 ea 11/25/20 pen needle, diabetic 29 gauge x #100 ea 03/09/22 1/2 (Comfort EZ Pen Bryce) blood sugar diagnostic (True #100 strips 11/09/22 Metrix Glucose Test Strip) apixaban 5 mg tablet (Eliquis) 5 mg PO BID #180 tabs 04/12/23 insulin lispro 100 unit/mL 1 sliding scale dose SUBCUT 04/24/23 subcutaneous pen (Humalog KwikPen USEASDIRECTD #15 mL (U-100) Insulin) nitroglycerin 0.4 mg sublingual 0.4 mg sublingual Q5-15M PRN chest 04/24/23 tablet pain #90 tabs losartan 50 mg-hydrochlorothiazide 1 tab PO DAILY 90 days #90 tabs 06/07/23 12.5 mg tablet diltiazem HCl 120 mg 240 mg PO BID #180 caps 06/09/23 capsule,extended release 12 hr metoprolol succinate 100 mg 50 mg PO BID 90 days #90 tabs 06/09/23 tablet,extended release 24 hr Allergies Allergy/AdvReac Type Severity Reaction Status Date / Time Sulfa (Sulfonamide Allergy Mild RASH Verified 06/16/23 17:40 Antibiotics) Review of Systems Review of Systems ROS Unobtainable: All systems reviewed & are unremarkable except as noted in HPI and below Patient History Medical History Abnormal mammogram of left breast Breast screening Colon polyps (08/31/14) Coronary artery disease Diabetes mellitus (~2011) Hyperlipidemia Hypertension (~2011) Incontinence Knee osteoarthritis NSTEMI (non-ST elevated myocardial infarction) (09/2018) Osteopenia (05/20/14) Recent heart attack Rheumatoid arthritis Sedentary lifestyle Stage II pressure ulcer of sacral region (~02/2023) Thyroid nodule Surgical History Anesthesia History of bilateral knee replacement (2009) History of colonoscopy with polypectomy (08/31/14) History of knee replacement History of knee replacement History of left cataract surgery (03/23/15) History of right cataract surgery (04/06/15) Status post delivery (12/21/78) Family History Brother Drowning Father Heart disease Mother Diabetes mellitus Sister Bone cancer Sister Bone cancer Social History marital status: household members: children Smoking Status: Never smoker alcohol intake: current substance use type: does not use Smoking Status: Never smoker alcohol intake frequency: holidays/special occasions only Substance Use Type: does not use Exam Narrative Exam Narrative: GENERAL: Alert and oriented x three, obese female in mild distress. HEENT: Head normocephalic, atraumatic, EOMI, pupils reactive, face symmetric, moist mucous membranes NECK: Supple, full range of motion CARDIOVASCULAR: Regular rate and rhythm without murmurs, rubs or gallops. No JVD. No swelling bilateral lower extremities. RESPIRATORY: Breath sounds equal bilaterally, no wheezes rales or rhonchi. ABDOMEN: Soft, nontender. Nondistended. Normoactive bowel sounds all 4 quadrants. No guarding or rebound, rigidity, no mass : No CVA tenderness EXTREMITIES: Normal range of motion, no clubbing or edema. Neurovascularly intact NEUROLOGICAL: Cranial nerves II through XII grossly intact. Moving all extremities SKIN: Warm, dry, no petechiae, patient has large pannus, she has erythema and yeast or what appears to be just underneath her pannus, in the bilateral inguinal narrowing with quite a bit of irritation along with the entire perineum, buttocks are both involved bilaterally and there is some breakdown in the crease although no subcutaneous tissue is exposed. Skin is not blanchable. Initial Vital Signs Initial Vital Signs: Vital Signs Blood Pressure 136/65 06/16/23 17:37 Course Orders Ordered: ED Orders 06/16/23 19:40 Urine Culture Stat Urine Microscopic Stat Acetaminophen (Acetaminophen 325 Mg Tablet) 650 mg PO Q6H PRN PRN Reason: Fever/Mild Pain (1-3) Albuterol (Albuterol 2.5 Mg/3 Ml Neb (Adult)) 2.5 mg INH [id number] PRN PRN Reason: Dyspnea Apixaban (Apixaban 5 Mg Tablet) 5 mg PO BID [facility] Last Admin: 06/16/23 23:05 Dose: 5 mg Documented By: MS Atorvastatin Calcium (Atorvastatin 20 Mg Tablet) 80 mg PO QPM [facility] Clopidogrel Bisulfate (Clopidogrel 75 Mg Tablet) 75 mg PO DAILY [facility] Last Admin: 06/16/23 23:05 Dose: 75 mg Documented By: MS Diltiazem HCl (Diltiazem Cd 120 Mg Cap) 240 mg PO BID [facility] Hydromorphone HCl (Hydromorphone 0.5 Mg Inj) 0.5 mg IV Q2H PRN PRN Reason: Pain, Severe (7-10) Sodium Chloride (Normal Saline 0.9%) 1,000 mls @ 100 mls/hr IV CONT [facility] Last Admin: 06/17/23 04:12 Dose: 100 mls/hr Documented By: Infusion: 06/17/23 04:12 Dose: 100 mls/hr Documented By: Admin: 06/16/23 23:06 Dose: 100 mls/hr Documented By: MS Ceftriaxone Sodium 2,000 mg/ (Sodium Chloride) 100 mls @ 200 mls/hr IV Q24H [facility] Last Admin: 06/16/23 22:37 Dose: 200 mls/hr Documented By: MS Vancomycin HCl/Dextrose (Vancomycin) 1,500 mg in 300 mls @ 150 mls/hr IV Q24H [facility] Insulin Glargine (Insulin Glargine 100 Unit/Ml 3ml Pen) 40 unit SUBCUT DAILY [facility] Last Admin: 06/16/23 23:05 Dose: 40 unit Documented By: Co-signed By: Melatonin (Melatonin 3 Mg Tablet) 3 mg PO BEDTIME PRN PRN Reason: Insomnia Last Admin: 06/16/23 23:06 Dose: 3 mg Documented By: MS Metoprolol Succinate (Metoprolol Er 50 Mg Tablet) 50 mg PO BID [facility] Naloxone HCl (Naloxone 0.4 Mg/Ml Vial) 0.2 mg IV Q2MIN PRN PRN Reason: Opiate Reversal Nitroglycerin (Nitroglycerin 0.4 Mg Sl Tab) 0.4 mg SL [id number] PRN PRN Reason: chest pain Non-Formulary Medication (Insulin Lispro [Humalog Kwikpen Insulin]) 1 sliding scale dose SUBCUT USEASDIRECTD [facility] Ondansetron HCl (Ondansetron 4 Mg/2 Ml Inj) 4 mg IV Q8HR PRN PRN Reason: Nausea And Vomiting Oxycodone HCl (Oxycodone Ir 5 Mg Tablet) 5 mg PO Q3H PRN PRN Reason: Pain, Moderate (4-6) Last Admin: 06/16/23 22:37 Dose: 5 mg Documented By: Discontinued Medications Acetaminophen (Acetaminophen 325 Mg Tablet) 650 mg PO NOW ONE Stop: 06/16/23 18:22 Last Admin: 06/16/23 19:12 Dose: 650 mg Documented By: MAG Clindamycin Phosphate (Cleocin) 900 mg in 50 mls @ 50 mls/hr IV NOW ONE Stop: 06/16/23 21:18 Last Infusion: 06/16/23 21:39 Dose: 50 mls/hr Documented By: Admin: 06/16/23 20:58 Dose: 50 mls/hr Documented By: JOSE Sodium Chloride (Normal Saline 0.9%) 1,000 mls @ 1,000 mls/hr IV BOLUS ONE Stop: 06/16/23 21:19 Last Infusion: 06/16/23 21:40 Dose: 1,000 mls/hr Documented By: Admin: 06/16/23 20:57 Dose: 1,000 mls/hr Documented By: JOSE Vancomycin HCl 1,250 mg/ (Sodium Chloride) 100 mls @ 100 mls/hr IV Q12H [facility] Vancomycin HCl/Dextrose (Vancomycin) 2,000 mg in 400 mls @ 200 mls/hr IV 2300 [facility] Stop: 06/17/23 00:59 Last Admin: 06/16/23 23:06 Dose: 200 mls/hr Documented By: Vital Signs Vital signs: Vital Signs - 8 hr 06/16/23 20:30 06/16/23 20:30 06/16/23 20:59 Pulse Rate 60 61 Respiratory Rate Blood Pressure 117/56 L Pulse Oximetry 97 98 06/16/23 21:00 06/16/23 21:02 Pulse Rate 62 Respiratory Rate 16 Blood Pressure 123/57 L Pulse Oximetry 98 MDM - Skin/Abscess/Foreign Bdy Lab Data 06/16/23 18:53 06/16/23 18:53 Labs: Lab Results 06/16/23 06/16/23 06/16/23 Range/Units 18:53 18:53 18:53 WBC 12.7 H (4.5-11.0) X10^3/uL RBC 3.62 L (4.0-5.2) X10^6/uL Hgb 10.0 L (12.0-16.0) g/dL Hct 29.8 L (36-46) % MCV 82.3 (80-100) fL MCH 27.5 (26-34) PG MCHC 33.4 (30-36) % RDW 14.3 (11.6-14.8) % Plt Count 320 (150-400) X10^3/uL Neut % (Auto) 80.1 H (50-75) % Lymph % (Auto) 11.1 L (25-40) % Mingo % (Auto) 7.1 (3-14) % Eos % (Auto) 1.2 L (2-4) % Baso % (Auto) 0.5 (0-2) % Neut # (Auto) 69812 H (8796-1765) /uL Lymph # (Auto) 1400 (9012-5581) /uL Mingo # (Auto) 900 (0-900) /uL Eos # (Auto) 200 (0-450) /uL Baso # (Auto) 100 (0-100) /uL PT (10.1-12.7) SECONDS INR (0.9-1.3) APTT (26-36) SECONDS Sodium 140 (137-145) mmol/L Potassium 4.3 (3.4-5.1) mmol/L Chloride 102 (98-107) mmol/L Carbon Dioxide 29 (22-32) mmol/L BUN 28 H (7-17) mg/dL Creatinine 1.26 H (0.52-1.04) mg/dL Estimated GFR 46 L (>60) mL/min BUN/Creatinine Ratio 22.2 H (6-22) Glucose 221 H (80-110) mg/dL Lactate 3.5 H (0.7-2.1) mmol/L Calcium 8.6 (8.4-10.2) mg/dL Total Bilirubin 0.4 (0.2-1.3) mg/dL AST 17 (14-36) IU/L ALT 17 (<35) IU/L Alkaline Phosphatase 54 (38-126) U/L Total Creatine Kinase 26 L (30-135) U/L Troponin I < 0.012 (0.01-0.034) ng/mL Total Protein 7.3 (6.3-8.2) g/dL Albumin 3.7 (3.5-5.0) g/dL Globulin 3.6 (1.7-4.1) g/dL Albumin/Globulin Ratio 1.0 (1.0-2.8) Lipase 688 H D (23-300) U/L Procalcitonin 0.06 (<0.5) ng/mL Urine RBC (0-5/HPF) Urine WBC (0-5/HPF) Ur Squamous Epith Cells (0-5/HPF) Urine Bacteria (None) 06/16/23 06/16/23 06/16/23 Range/Units 18:53 19:40 21:02 WBC (4.5-11.0) X10^3/uL RBC (4.0-5.2) X10^6/uL Hgb (12.0-16.0) g/dL Hct (36-46) % MCV (80-100) fL MCH (26-34) PG MCHC (30-36) % RDW (11.6-14.8) % Plt Count (150-400) X10^3/uL Neut % (Auto) (50-75) % Lymph % (Auto) (25-40) % Mingo % (Auto) (3-14) % Eos % (Auto) (2-4) % Baso % (Auto) (0-2) % Neut # (Auto) (9763-3874) /uL Lymph # (Auto) (4446-1284) /uL Mingo # (Auto) (0-900) /uL Eos # (Auto) (0-450) /uL Baso # (Auto) (0-100) /uL PT 18.2 H (10.1-12.7) SECONDS INR 1.6 H (0.9-1.3) APTT 33 (26-36) SECONDS Sodium (137-145) mmol/L Potassium (3.4-5.1) mmol/L Chloride (98-107) mmol/L Carbon Dioxide (22-32) mmol/L BUN (7-17) mg/dL Creatinine (0.52-1.04) mg/dL Estimated GFR (>60) mL/min BUN/Creatinine Ratio (6-22) Glucose (80-110) mg/dL Lactate 2.8 H (0.7-2.1) mmol/L Calcium (8.4-10.2) mg/dL Total Bilirubin (0.2-1.3) mg/dL AST (14-36) IU/L ALT (<35) IU/L Alkaline Phosphatase (38-126) U/L Total Creatine Kinase (30-135) U/L Troponin I (0.01-0.034) ng/mL Total Protein (6.3-8.2) g/dL Albumin (3.5-5.0) g/dL Globulin (1.7-4.1) g/dL Albumin/Globulin Ratio (1.0-2.8) Lipase (23-300) U/L Procalcitonin (<0.5) ng/mL Urine RBC 10-30/hpf H (0-5/HPF) Urine WBC 0-1/hpf (0-5/HPF) Ur Squamous Epith Cells 0-1 /hpf (0-5/HPF) Urine Bacteria Few (2-10) H (None) Urine Dip Bedside Urine Glucose Negative Bedside Urine Bilirubin - Negative Bedside Urine Ketone - Negative Urine Specific Hopkins 1.010 Bedside Urine Occult Blood +++ Bedside Urine pH 6.5 Bedside Urine Protein - Negative Bedside Urine Urobilinogen - Negative Bedside Urine Nitrite - Negative Bedside Urine Leukocytes + 70 Esterase Imaging Data Chest x-ray: Radiologist's Impression: Close Chest X-Ray (Signed) Marvel Roa - 06/16/23 Telemetry Strips 06/08/23 Chest X-Ray (Signed) Narayan Silver - 06/08/23 Echocardiogram Ultrasound (Signed) Marquis Tobin - 06/04/23 Chest CTA (Signed) Karime Santizo - 06/04/23 Chest X-Ray (Signed) Elodia Dumont - 06/04/23 Telemetry Strips 06/02/23 Telemetry Strips 06/02/23 Telemetry Strips 06/02/23 Abdomen/Pelvis CT (Signed) Lefty Servin - 06/02/23 Mammogram Diagnostic (Signed) Anupam Scott - 05/30/[address] (Signed) Marvel Roa - 03/22/22 Chest X-Ray (Signed) Cindi Reese - 03/22/22 Outside DI 12/12/21 Carotid Doppler Study (Signed) Anupam Scott - 11/03/[address] (Signed) Lexx Hardin - 01/07/21 Needle Aspiration Ultrasound (Signed) Demetra Mirandamitchell - 12/28/20 DI Result CC 12/08/20 DI Result CC 12/07/20 Thyroid Ultrasound (Signed) Vipul Liu - 11/23/20 DI Result CC 11/08/20 DI Result CC 11/08/20 Echocardiogram Ultrasound (Signed) MahadMarquis - 09/01/20 Mammogram Diagnostic (Signed) Vipul Liu - 08/12/20 Mammogram Diagnostic (Signed) Karime Santizo - 12/31/19 Echocardiogram Ultrasound (Signed) AbrahamMeghanelpidio - 10/24/19 Brain MRI (Signed) Nati Gil - 10/17/19 Carotid Doppler Study (Signed) Narayan Silver - 10/10/[address] (Signed) Narayan Silver - 09/24/19 Chest X-Ray (Signed) Narayan Silver - 09/24/19 Bone Densitometry 08/15/19 DEXA Result 08/15/19 Mammogram Diagnostic (Signed) Yon Snowden - 05/15/19 DI Result 12/05/18 DI Result 12/05/18 DI Result 12/05/18 Mammogram, Additional Views (Signed) Jose Gar - 11/15/18 DI Result 11/15/18 Mammogram Screening (Signed) Eileen Reynolds - 08/29/18 [place] [address] XRay Report Signed Patient: Anuja Parker MR#: [id number] : 1950 Acct:[id number] Age/Sex: 72 / F Date of Service: 06/16/23 Loc: ED Accession Number: [id number] ?? Procedure: XR chest 1V Ordering Provider: Mickie Garibay D.O. PROCEDURE:? XR CHEST 1V ? INDICATIONS:? wound buttocks, perineum ? TECHNIQUE:? One view of the chest was acquired.? ? COMPARISON:? [facility], CT, CT ANGIO CHEST PE PROTOCOL, 06/04/2023, 17:51.? [facility], CR, XR CHEST 1V, 06/04/2023, 15:38.? [facility], CR, XR CHEST 1V, 06/08/2023, 14:23. ? FINDINGS:? ? Surgical changes and devices:? None.? ? Lungs and pleura:? Mild generalized interstitial prominence can be seen.? No pleural effusions or pneumothorax.? ? Mediastinum:? The cardiac contours are within normal limits. The aorta demonstrates calcification and tortuosity. ? Bones and chest wall:? No suspicious bony lesions.? Age-appropriate bony degenerative changes are seen. ? Overlying soft tissues appear unremarkable.? ? ? IMPRESSION:? Mild generalized interstitial prominence can be seen.? Please consider artifact versus mild pulmonary edema.? ? Dictated by: Marvel Roa M.D. on 06/16/2023 at 17:55 ? ? Approved by: Marvel Roa M.D. on 06/16/2023 at 17:56?? MDM Narrative Medical decision making narrative: 72-year-old male presents with complaint of increasing skin breakdown of her buttocks as well as perineal area and inguinal creases. Patient has some breakdown no subcutaneous exposure but there is some of the initial layer of skin. Patient is afebrile she is walking at but has difficulty making it to the bathroom before she urinates. She does not have much help at home. She overall is fairly well appearing she states she is eating and drinking regularly she did have a recent hospitalization for AFib RVR denies any issues since then she is been taking her medications, troponin is negative, labs show mild leukocytosis, slight AKA with a bump in her creatinine from 1 range to 1.2, BUN is slightly elevated. Lactate is 3.5, procalcitonin negative. She is not show other changes consistent with sepsis but concern for potential. Patient was covered with a dose of IV antibiotic. Patient case was discussed with Dr. Meza the tele hospitalist who accepts for observation. Discussed no significant breakdown does not appear to require surgery at this time but will likely require wound care/rehab versus home health care. Discharge Plan Departure Patient Disposition: Admitted as Observation Clinical Impression: Decubitus ulcer of sacral region, Acute kidney injury, Acidosis, lactic Admit Date/Time: 06/16/23 21:15 Admit Provider: Romeo Meza
--- NOTE | 2023-06-16 18:21 | DI.RAD.S_ITS ---
PROCEDURE: XR CHEST 1V INDICATIONS: wound buttocks, perineum TECHNIQUE: One view of the chest was acquired. COMPARISON: [facility], CT, CT ANGIO CHEST PE PROTOCOL, 06/04/2023, 17:51. [facility], CR, XR CHEST 1V, 06/04/2023, 15:38. [facility], CR, XR CHEST 1V, 06/08/2023, 14:23. FINDINGS: Surgical changes and devices: None. Lungs and pleura: Mild generalized interstitial prominence can be seen. No pleural effusions or pneumothorax. Mediastinum: The cardiac contours are within normal limits. The aorta demonstrates calcification and tortuosity. Bones and chest wall: No suspicious bony lesions. Age-appropriate bony degenerative changes are seen. Overlying soft tissues appear unremarkable. IMPRESSION: Mild generalized interstitial prominence can be seen. Please consider artifact versus mild pulmonary edema. Dictated by: Marvel Roa M.D. on 06/16/2023 at 17:55 Approved by: Marvel Roa M.D. on 06/16/2023 at 17:56
--- NOTE | 2023-06-16 18:26 | PC.NURSE ---
Patient arrives with soiled brief and complaint of inadequate pain management for pain in her butt. With assistance of Emergency Technicians this RN assisted patient to change in to clean brief and examine patient buttock, perineum, and vaginal area. Patient entire buttock from anal opening to top of crack and extending 5mm out to the right cheek and the left cheek 4mm is red and excoriated. Patient has a stage 2 pressure injury on left cheek 1.5mm long and .5mm wide without notable depth. Patient has a stage 2 pressure injury on right cheek 2mm long, .5mm wide without notable depth. Paremeter of entire excoriated area is blanchable up to 2mm in. Inside of the 2mm soham the skin is no longer blanchable. Within this same area there are several excoriated areas with macerated skin microtears. Patient entire perineum is excoriated. Patient creases beneath her pannus are red and show signs of yeast. Patient groin creases also are red with notged signs of yeast. Patient states that she has a cream that she has been applying to these areas. Patient entire area cleaned using warm cloth patient skin covered in dimethicone barrier cream and then topped with zinc paste. Provider assessed areas upon arrival.
--- NOTE | 2023-06-16 19:05 | PC.NURSE ---
This BATTERY REPAIRER placed pure yuni @[phone]
[2023-06-16 19:11] LABS: Add Manual Diff / Slide Review NO; Basophils Absolute Auto 100 /uL (0-100); Basophils Percent Auto 0.5 % (0-2); Eosinophils Absolute Auto 200 /uL (0-450); Eosinophils Percent Auto 1.2 % (2-4); Hematocrit 29.8 % (36-46); Lymphocytes Absolute Auto 1400 /uL (1100-4500); Lymphocytes Percent Auto 11.1 % (25-40); Mean Corpuscular HGB Conc 33.4 % (30-36); Mean Corpuscular Hemoglobin 27.5 PG (26-34); Mean Corpuscular Volume 82.3 fL (80-100); Monocytes Absolute Auto 900 /uL (0-900); Monocytes Percent Auto 7.1 % (3-14); Neutrophils Absolute Auto 10100 /uL (1500-7000); Neutrophils Percent Auto 80.1 % (50-75); Platelet Count 320 X10^3/uL (150-400); Red Blood Cell Count 3.62 X10^6/uL (4.0-5.2); Red Cell Distribution Width 14.3 % (11.6-14.8); White Blood Cell Count 12.7 X10^3/uL (4.5-11.0)
[2023-06-16] MEDS: ACETAMINOPHEN 325 MG TABLET 650 MG PO (19:12)
[2023-06-16 19:15] LABS: INR 1.6 (0.9-1.3); Prothrombin Time 18.2 SECONDS (10.1-12.7)
[2023-06-16 19:18] LABS: PTT Partial Thromboplastin Tim 33 SECONDS (26-36)
[2023-06-16 19:21] LABS: Lactate (Lactic Acid) 3.5 mmol/L (0.7-2.1)
[2023-06-16 19:23] LABS: Alanine Aminotransferase 17 IU/L (<35); Albumin 3.7 g/dL (3.5-5.0); Alkaline Phosphatase 54 U/L (38-126); Aspartate Aminotransferase 17 IU/L (14-36); BUN Creatinine Ratio 22.2 (6-22); Bilirubin Total 0.4 mg/dL (0.2-1.3); Blood Urea Nitrogen 28 mg/dL (7-17); Calcium 8.6 mg/dL (8.4-10.2); Carbon Dioxide 29 mmol/L (22-32); Chloride 102 mmol/L (98-107); Creatine Kinase 26 U/L (30-135); Estimated Glomerular Filt Rate 46 mL/min (>60); Globulin 3.6 g/dL (1.7-4.1); Glucose 221 mg/dL (80-110); HEMOLYSIS < 15 (0-50); Lipase 688 U/L (23-300); Potassium 4.3 mmol/L (3.4-5.1); Sodium 140 mmol/L (137-145); Total Protein 7.3 g/dL (6.3-8.2)
[2023-06-16 19:34] LABS: Troponin I < 0.012 ng/mL (0.01-0.034)
[2023-06-16 19:39] LABS: Procalcitonin 0.06 ng/mL (<0.5)
[2023-06-16 20:30] LABS: Bacteria Urine Few (2-10); RBC Urine 10-30/HPF (0-5/HPF); Squamous Epithelial Cell Urine 0-1 /HPF (0-5/HPF); WBC Urine 0-1/HPF (0-5/HPF)
[2023-06-16] MEDS: SODIUM CHLORIDE 0.9% 1,000 ML 1000 ML IV (20:57)
[2023-06-16] MEDS: CLINDAMYCIN 900 MG/50 ML PIGGYBACK 50 MG IV (20:58)
[2023-06-16 21:03] LABS: Reflexed Lactate in 2 Hours Y
[2023-06-16 21:31] LABS: Lactate 2HR (Lactic Acid Rflx) 2.8 mmol/L (0.7-2.1)
[2023-06-16] MEDS: OXYCODONE IR 5 MG TABLET PO (22:37)
[2023-06-16] MEDS: cefTRIAXone 2,000 MG in SODIUM CHLORIDE 0.9% 100 ML 200 MG IV (22:37)
--- NOTE | 2023-06-16 23:04 | PM.HP.1 ---
History of Present Illness History of Present Illness Chief complaint: Bed Sores, Pain Mngmt Narrative: 72 years old female with history of coronary artery disease, atrial fibrillation on Eliquis, hyperlipidemia, diabetes mellitus type 2, prior valve replacement ER with urinary incontinence and worsening of her bedsore on her buttocks her last hospitalization 1 week ago. She was hospitalized on 06/08/2023 for atrial fibrillation, inflammation of her appendix treated with antibiotics. The patient went home 3 days ago and since then her bedsore is getting worse because of her urinary Incontinence. She was not able to perform wound care for her buttocks since being home. Denies any fever, shortness of breath, chest pain, palpitations, nausea, vomiting, abdominal, diarrhea or dysuria. Lives with several sons at home but she does not have much help with cleaning and hygiene. Compliant to her home medications. In the ER she was found to have leukocytosis, lactic acid 3.5, mildly elevated creatinine of 1.2. She was given clindamycin IV, fluids and was decided to be admitted for further management. [facility] Medical History Abnormal mammogram of left breast Breast screening Colon polyps (08/31/14) Coronary artery disease Diabetes mellitus (~2011) Hyperlipidemia Hypertension (~2011) Incontinence Knee osteoarthritis NSTEMI (non-ST elevated myocardial infarction) (09/2018) Osteopenia (05/20/14) Recent heart attack Rheumatoid arthritis Sedentary lifestyle Stage II pressure ulcer of sacral region (~02/2023) Thyroid nodule Surgical History Anesthesia History of bilateral knee replacement (2009) History of colonoscopy with polypectomy (08/31/14) History of knee replacement History of knee replacement History of left cataract surgery (03/23/15) History of right cataract surgery (04/06/15) Status post delivery (12/21/78) Family History Brother Drowning Father Heart disease Mother Diabetes mellitus Sister Bone cancer Sister Bone cancer Social History marital status: household members: children Smoking Status: Never smoker alcohol intake: current substance use type: does not use Meds Home Medications and Allergies Home Medications Medication Instructions Recorded Confirmed Type Parking Permit... #1 ea 09/08/20 06/16/23 Rx pen needle, diabetic 29 gauge x #100 ea 03/09/22 06/16/23 Rx 1/2 (Comfort EZ Pen [place]) blood sugar diagnostic (True #100 strips 11/09/22 06/16/23 Rx Metrix Glucose Test Strip) apixaban 5 mg tablet (Eliquis) 5 mg PO BID #180 tabs 04/12/23 06/16/23 Rx insulin lispro 100 unit/mL 1 sliding scale dose SUBCUT 04/24/23 06/16/23 Rx subcutaneous pen (Humalog KwikPen USEASDIRECTD #15 mL (U-100) Insulin) nitroglycerin 0.4 mg sublingual 0.4 mg sublingual Q5-15M PRN chest 04/24/23 06/16/23 Rx tablet pain #90 tabs atorvastatin 80 mg tablet (Lipitor) 80 mg PO QPM 06/02/23 06/16/23 History clopidogrel 75 mg tablet 75 mg PO QAM 06/02/23 06/16/23 History insulin glargine 100 unit/mL (3 40 unit SUBCUT QAM 06/02/23 06/16/23 History mL) subcutaneous pen (Lantus Solostar U-100 Insulin) metformin 500 mg tablet 1,000 mg PO QAM 06/02/23 06/16/23 History losartan 50 mg-hydrochlorothiazide 1 tab PO DAILY 90 days #90 tabs 06/07/23 06/16/23 Rx 12.5 mg tablet diltiazem HCl 120 mg 240 mg PO BID #180 caps 06/09/23 06/16/23 Rx capsule,extended release 12 hr metoprolol succinate 100 mg 50 mg PO BID 90 days #90 tabs 06/09/23 06/16/23 Rx tablet,extended release 24 hr Allergies Allergy/AdvReac Type Severity Reaction Status Date / Time Sulfa (Sulfonamide Allergy Mild RASH Verified 06/16/23 17:40 Antibiotics) Review of Systems Review of Systems ROS: Yes All systems reviewed with the patient and are negative except as otherwise documented Constitutional Constitutional: Reports as per HPI and Reports system reviewed and no additional complaints, except as documented Eyes Eyes: Reports as per HPI and Reports system reviewed and no additional complaints, except as documented ENT Ears, Nose, Mouth, and Throat: Yes as per HPI and Yes system reviewed and no additional complaints, except as documented Cardiovascular Cardiovascular: Reports system reviewed and no additional complaints, except as documented Respiratory Respiratory: Reports system reviewed and no additional complaints, except as documented Gastrointestinal Gastrointestinal: Reports system reviewed and no additional complaints, except as documented Genitourinary Genitourinary: Reports system reviewed and no additional complaints, except as documented Musculoskeletal Musculoskeletal: Reports system reviewed and no additional complaints, except as documented, Reports abnormal gait and Reports numbness Neurologic Neurologic: Reports system reviewed and no additional complaints, except as documented, Reports abnormal gait, Reports confusion and Reports numbness Psychiatric Psychiatric: Reports system reviewed and no additional complaints, except as documented and Reports confusion Exam Vital Signs (past 8 hours): - 06/16/23 17:40 06/16/23 17:37 06/16/23 17:38 Temperature 98.5 F Pulse Rate 67 67 Respiratory Rate 20 Blood Pressure 136/65 136/65 Pulse Oximetry 98 97 Oxygen Delivery Method Room Air 06/16/23 18:00 06/16/23 18:00 06/16/23 18:30 Temperature Pulse Rate 66 68 Respiratory Rate Blood Pressure 115/56 L Pulse Oximetry 97 97 Oxygen Delivery Method 06/16/23 18:31 06/16/23 18:31 06/16/23 18:52 Temperature Pulse Rate 70 68 Respiratory Rate Blood Pressure 121/56 L Pulse Oximetry 97 97 Oxygen Delivery Method 06/16/23 18:52 06/16/23 19:02 06/16/23 19:13 Temperature Pulse Rate 64 Respiratory Rate Blood Pressure 128/58 L Pulse Oximetry 96 95 Oxygen Delivery Method 06/16/23 19:13 06/16/23 19:30 06/16/23 19:30 Temperature Pulse Rate 61 Respiratory Rate Blood Pressure 123/60 114/63 Pulse Oximetry 96 Oxygen Delivery Method 06/16/23 20:00 06/16/23 20:00 06/16/23 20:30 Temperature Pulse Rate 61 Respiratory Rate Blood Pressure 128/60 117/56 L Pulse Oximetry 96 Oxygen Delivery Method 06/16/23 20:30 06/16/23 20:59 06/16/23 21:00 Temperature Pulse Rate 60 61 Respiratory Rate Blood Pressure 123/57 L Pulse Oximetry 97 98 Oxygen Delivery Method 06/16/23 21:02 06/16/23 21:30 06/16/23 21:30 Temperature Pulse Rate 62 55 L Respiratory Rate 16 Blood Pressure 110/53 L Pulse Oximetry 98 96 Oxygen Delivery Method 06/16/23 21:55 Temperature 97.2 F L Pulse Rate 60 Respiratory Rate 20 Blood Pressure 158/61 H Pulse Oximetry 97 Oxygen Delivery Method Oxygen Delivery Method Room Air Const General: cooperative, comfortable and well developed Orientation: alert and oriented x3 [facility] Head: normal to inspection, normocephalic and atraumatic Face and sinus: normal facial exam Mouth: oral mucosae normal and moist mucous membranes Throat: posterior oropharynx normal Eyes General: appearance normal, both eyes and all related structures Pupils: PERRL EOM: EOM intact bilaterally Neck Neck: normal visual inspection and full ROM Chest Chest: normal inspection of the chest Resp Effort & Inspection: normal respiratory effort and able to speak in complete sentences Auscultation: clear to auscultation bilaterally Cardio Palpation: normal PMI Rate: regular rate Rhythm: regular rhythm Heart Sounds: S1 normal and S2 normal GI Inspection: normal to inspection Palpation: soft and no hepatosplenomegaly Auscultation: normal bowel sounds Skin General: no rashes or lesions noted Lesions: no lesions Rashes: no rashes Trauma: no lacerations or abrasions Other: Warm, dry, no petechiae, patient has large pannus, she has erythema and yeast or what appears to be just underneath her pannus, in the bilateral inguinal narrowing with quite a bit of irritation along with the entire perineum, buttocks are both involved bilaterally and there is some breakdown in the crease although no subcutaneous tissue is exposed.? Skin is not blanchable. Neuro General: patient alert, patient awake, patient oriented x3 and no focal motor deficits Cranial Nerves: CN's II-XI intact bilaterally Cognition: normal cognition Speech: speech normal Gait: normal gait Motor: muscle tone normal throughout Sensory Exam: no sensory deficits noted Extrem General: full ROM and no calf tenderness Psych Appearance: grossly normal Mental Status: mental status grossly normal Speech and Movement: speech and movement normal Objective Labs 06/16/23 18:53 06/16/23 18:53 Labs: Laboratory Results - last 24 hr 06/16/23 06/16/23 06/16/23 18:53 18:53 18:53 WBC 12.7 H RBC 3.62 L Hgb 10.0 L Hct 29.8 L MCV 82.3 MCH 27.5 MCHC 33.4 RDW 14.3 Plt Count 320 Neut % (Auto) 80.1 H Lymph % (Auto) 11.1 L [place] % (Auto) 7.1 Eos % (Auto) 1.2 L Baso % (Auto) 0.5 Neut # (Auto) 37992 H Lymph # (Auto) 1400 [place] # (Auto) 900 Eos # (Auto) 200 Baso # (Auto) 100 PT INR APTT Sodium 140 Potassium 4.3 Chloride 102 Carbon Dioxide 29 BUN 28 H Creatinine 1.26 H Estimated GFR 46 L BUN/Creatinine Ratio 22.2 H Glucose 221 H Lactate 3.5 H Calcium 8.6 Total Bilirubin 0.4 AST 17 ALT 17 Alkaline Phosphatase 54 Total Creatine Kinase 26 L Troponin I < 0.012 Total Protein 7.3 Albumin 3.7 Globulin 3.6 Albumin/Globulin Ratio 1.0 Lipase 688 H D Procalcitonin 0.06 Urine RBC Urine WBC Ur Squamous Epith Cells Urine Bacteria 06/16/23 06/16/23 06/16/23 18:53 19:40 21:02 WBC RBC Hgb Hct MCV MCH MCHC RDW Plt Count Neut % (Auto) Lymph % (Auto) [place] % (Auto) Eos % (Auto) Baso % (Auto) Neut # (Auto) Lymph # (Auto) [place] # (Auto) Eos # (Auto) Baso # (Auto) PT 18.2 H INR 1.6 H APTT 33 Sodium Potassium Chloride Carbon Dioxide BUN Creatinine Estimated GFR BUN/Creatinine Ratio Glucose Lactate 2.8 H Calcium Total Bilirubin AST ALT Alkaline Phosphatase Total Creatine Kinase Troponin I Total Protein Albumin Globulin Albumin/Globulin Ratio Lipase Procalcitonin Urine RBC 10-30/hpf H Urine WBC 0-1/hpf Ur Squamous Epith Cells 0-1 /hpf Urine Bacteria Few (2-10) H Assessment & Plan Assessment and plan (1) Decubitus ulcer of sacral region: Problem details: Patient meets the criteria the sepsis Status: Acute Plan: - Start antibiotics -Decubitus precaution -IV fluids -Pain medications and Tylenol for fever as needed -Wound care nurse consult (2) Atrial fibrillation: Status: Acute Plan: - Restart diltiazem and Eliquis (3) Acute kidney injury: Problem details: Most likely due to poor oral intake and dehydration Status: Acute Plan: - Start IV fluids -Hold diuretics and SHWETA inhibitors for now -BMP daily -Dose medications according to GFR (4) Acidosis, lactic: Status: Acute Plan: - Start IV fluids -Repeat lactic acid (5) Diabetes mellitus type 2, controlled, with complications: Status: Acute Plan: - Hold oral antidiabetic medications for now -ADA diet, SSI, long-acting insulin -Monitor blood sugar before meals and at bedtime -Check A1c (6) Hyperlipidemia: Qualifiers: Hyperlipidemia type: mixed hyperlipidemia Qualified Code(s): E78.2 - Mixed hyperlipidemia Status: Acute Plan: - Restart statins (7) Incontinence: Qualifiers: Incontinence type: urinary Urinary Incontinence type: mixed stress and urge incontinence Qualified Code(s): N39.46 - Mixed incontinence Status: Acute Plan: - Consider Carbajal catheter (8) Essential hypertension: Status: Chronic Plan: - Hold lisinopril and hydrochlorothiazide for now due to KADE -Continue diltiazem and metoprolol (9) Coronary artery disease: Qualifiers: Coronary Disease-Associated Artery/Lesion type: unspecified vessel or lesion type [place] vs. transplanted heart: [place] heart Associated angina: angina presence unspecified Qualified Code(s): I25.10 - Atherosclerotic heart disease of [place] coronary artery without angina pectoris Status: Chronic Plan: -Restart aspirin and Plavix -Restart metoprolol -Nitroglycerin as needed Time Spent With Patient Time with patient: 50 to 69 minutes with 50% spent counseling/coordinating care Quality VTE Deep Vein Thrombosis/Pulmonary Embolism Present on Admission: No MIPS - Admit I confirm the patient?s Advance Care Plan is present, Code status is documented, Surrogate decision maker is in patient?s record [If Yes, STOP here]: Yes MIPS - Meds 'Current medications' to include all prescriptions, [id number] products, herbals, cannabis/cannabidiol products, and vitamin/mineral/dietary (nutritional) supplements. I have utilized all available resources to obtain, update, or review the patient?s current medications. [If Yes, STOP here]: Yes
[2023-06-16] MEDS: INSULIN GLARGINE 100 UNIT/ML 3ML PEN 40 UNIT SUBCUT (23:05)
[2023-06-16] MEDS: CLOPIDOGREL 75 MG TABLET PO (23:05)
[2023-06-16] MEDS: APIXABAN 5 MG TABLET PO (23:05)
[2023-06-16] MEDS: VANCOMYCIN 2,000 MG/400 ML PIGGYBACK 200 MG IV (23:06)
[2023-06-16] MEDS: SODIUM CHLORIDE 0.9% 1,000 ML 100 ML IV (23:06)
[2023-06-16] MEDS: MELATONIN 3 MG TABLET PO (23:06)
[2023-06-17] MEDS: SODIUM CHLORIDE 0.9% 1,000 ML 100 ML IV (04:12)
[2023-06-17 04:15] VITALS: BP 102/44; PULSE 60; RESP 18; TEMP 35.8; O2SAT 99
[2023-06-17] MEDS: ACETAMINOPHEN 325 MG TABLET 650 MG PO ×2 (05:59→12:17)
[2023-06-17 07:57] VITALS: BP 123/57; PULSE 60; RESP 18; TEMP 36.3; O2SAT 97
[2023-06-17 08:56] VITALS: BP 123/57; PULSE 60
[2023-06-17] MEDS: APIXABAN 5 MG TABLET PO (08:56)
[2023-06-17] MEDS: METOPROLOL ER 50 MG TABLET PO (08:56)
[2023-06-17] MEDS: dilTIAZem CD 120 MG CAP 240 MG PO (08:56)
[2023-06-17] MEDS: CLOPIDOGREL 75 MG TABLET PO (08:56)
[2023-06-17 08:57] LABS: Add Manual Diff / Slide Review NO; Basophils Absolute Auto 200 /uL (0-100); Basophils Percent Auto 1.6 % (0-2); Eosinophils Absolute Auto 200 /uL (0-450); Hematocrit 28.7 % (36-46); Hemoglobin 9.5 g/dL (12.0-16.0); Lymphocytes Absolute Auto 1300 /uL (1100-4500); Lymphocytes Percent Auto 10.8 % (25-40); Mean Corpuscular HGB Conc 33.1 % (30-36); Mean Corpuscular Hemoglobin 27.7 PG (26-34); Mean Corpuscular Volume 83.9 fL (80-100); Monocytes Absolute Auto 800 /uL (0-900); Monocytes Percent Auto 7.1 % (3-14); Neutrophils Absolute Auto 9300 /uL (1500-7000); Neutrophils Percent Auto 78.5 % (50-75); Platelet Count 275 X10^3/uL (150-400); Red Blood Cell Count 3.41 X10^6/uL (4.0-5.2); Red Cell Distribution Width 14.5 % (11.6-14.8); White Blood Cell Count 11.8 X10^3/uL (4.5-11.0)
[2023-06-17] MEDS: INSULIN GLARGINE 100 UNIT/ML 3ML PEN 40 UNIT SUBCUT (08:57)
[2023-06-17] MEDS: INSULIN LISPRO 100 UNIT/ML 3ML VIAL SUBCUT ×2 (08:57→12:09)
[2023-06-17 09:07] LABS: Lactate (Lactic Acid) 1.3 mmol/L (0.7-2.1)
--- NOTE | 2023-06-17 09:33 | DI.CT.S_ITS ---
PROCEDURE: CT ABDOMEN PELVIS W CON INDICATIONS: elevated lactate, recent appendicitis TECHNIQUE: After the administration of oral and IV contrast, axial sections were acquired from the lung bases to the pubic symphysis. Coronal and sagittal reformats were performed. For radiation dose reduction, the following was used: automated exposure control, adjustment of mA and/or kV according to patient size. COMPARISON: [facility], CT, CT ABDOMEN PELVIS W CON, 06/02/2023, 13:18. [facility], CR, XR CHEST 1V, 06/16/2023, 18:30. FINDINGS: Image quality: Excellent. Lung bases: Small bilateral pleural effusions are seen, with overlying atelectasis. A small hiatal hernia is incidentally noted. Heart: There is a prosthetic a root canal. Focal calcification can be seen involving the mitral valve annulus. ABDOMEN: Liver: An enlarged, fatty infiltrated liver can be seen. No focal liver lesion is seen. Gallbladder: Unremarkable. Biliary ducts: Unremarkable. Pancreas: Unremarkable. Spleen: Unremarkable. Incidental note is made of an accessory splenule along the hilum of the primary spleen. Adrenal Glands: Generalized prominence can be seen of the left adrenal gland, yet without a focal nodule. The right adrenal gland is within normal limits. Kidneys and Ureters: Nonobstructing bilateral renal stones5 are seen, with the largest on the right measuring 5 mm and 300 Hounsfield units. The largest on the left measures 8 mm and 250 Hounsfield units. Stomach and Bowel: The appendix is mildly abnormal, with mild surrounding inflammatory change. The appendix measures 7 8 mm, as on series 4, image 29. The inflammatory change surrounding the appendix is approved compared to the prior examination. No dilated loops of small bowel are seen. No significant colonic abnormality is seen. Peritoneum: No peritoneal abscess is seen. No abnormal intraperitoneal fluid. No free air. Ventral Wall: No hernia. Abdominal Nodes: No retroperitoneal or mesenteric adenopathy by size criteria. Vessels: Aorta and inferior vena cava are normal in size. Incidental note is made of a retroaortic left renal vein. PELVIS: Pelvic Organs: The uterus appears normal for age. No adnexal masses are seen. Bladder: Unremarkable. Pelvic Nodes: No enlarged lymph nodes. Miscellaneous: No inguinal hernias are seen. Bones: Degenerative changes are seen throughout, which are worst at the L5-S1 level. IMPRESSION: Abnormal appendix, which appears improved compared to the prior examination, with decreased caliber and decreased surrounding inflammatory change. No findings of perforation or abscess can be seen. Small bilateral pleural effusions are seen. Additional findings: Prosthetic aortic valve Small hiatal hernia Enlarged, fatty infiltrated liver Accessory splenule Generalized prominence of the left adrenal gland, without a focal nodule Retroaortic left renal vein Nonobstructing bilateral renal stones Focal L5-S1 degenerative change Dictated by: Marvel Roa M.D. on 06/17/2023 at 9:26 Approved by: Marvel Roa M.D. on 06/17/2023 at 9:32
--- NOTE | 2023-06-17 11:24 | PT.IIE ---
Current Diagnoses Type 2 diabetes mellitus with unspecified complications (06/16/23) Mixed hyperlipidemia (06/16/23) Acidosis, unspecified (06/16/23) Essential (primary) hypertension (06/16/23) Atherosclerotic heart disease of [place] coronary artery without angina pectoris (06/16/23) Unspecified atrial fibrillation (06/16/23) Pressure ulcer of sacral region, unspecified stage (06/16/23) Acute kidney failure, unspecified (06/16/23) Mixed incontinence (06/16/23) Surgical History (Last Reviewed 06/16/23 @ 18:26 by Mickie Garibay DO) Anesthesia History of bilateral knee replacement (2009) History of colonoscopy with polypectomy (08/31/14) History of knee replacement History of knee replacement History of left cataract surgery (03/23/15) History of right cataract surgery (04/06/15) Status post delivery (12/21/78) Medical History (Last Reviewed 06/16/23 @ 18:26 by Mickie Garibay DO) Abnormal mammogram of left breast Breast screening Colon polyps (08/31/14) Coronary artery disease Diabetes mellitus (~2011) Hyperlipidemia Hypertension (~2011) Incontinence Knee osteoarthritis NSTEMI (non-ST elevated myocardial infarction) (09/2018) Osteopenia (05/20/14) Recent heart attack Rheumatoid arthritis Sedentary lifestyle Stage II pressure ulcer of sacral region (~02/2023) Thyroid nodule Physical Therapy Inpatient Evaluation/Re-Eval M1 PT/OT-IP Prior Functional Status Start: 06/17/23 11:29 Freq: NEEDED Status: Active Protocol: Document 06/17/23 11:24 DLM (Rec: 06/17/23 12:02 DLM [id number]) Medical Review Prior Functional Status Medical History Reviewed Yes Diet/Fluid Consistency Regular Communication WFL Mobility and Gait Independent for short distances in the house with the FWW or holding furniture. She walks from her recliner to the bathroom. She sleeps in a recliner and does not have her own bed. Activities of Daily Living and IADL's She dresses herself. She uses the toilet on her own but has trouble reaching back to attend to her buttock wounds. She only showers when she has help which has not been often. Her Daughter has helped her. She has difficulty stepping over the edge of the tub and has no seat in the shower. The glass doors on the shower prevent her from using a tub transfer bench that she got from [employer]. Her Neighbor helps with her medication management and get breakfast. Her son is not comfortable helping with toileting/ showering. Prior Functional Level (Other details) She lives with her Son and grandson. Her daughter comes intermittently to help. Her neighbor comes over daily to help. Home health services did not start yet before she came back to the hospital. Pt was home approx 3 days before readmission. Pt reports home health called her but she missed the call. Social History Household Members children Living Arrangements House Number of Floors (Floors) One Floor Number of Stairs To Enter/Railing? 2+2 steps into the house without rails, holds the door frame on second set of stairs Home Environment Standard Height Toilet,Tub/ Shower Home Equipment Four Wheel Walker,Tub Transfer Bench,Sock Aid Employment Status Retired Additional Social History Comment has Meals on Wheels Her Son works motion and time study teacher as a emergency services professional, home a night. M2 PT-IP Current Condition Start: 06/17/23 11:29 Freq: NEEDED Status: Active Protocol: Document 06/17/23 11:24 DLM (Rec: 06/17/23 12:02 [facility] [id number]) Physical Therapy Current Condition Current Condition Evaluation Date 06/17/23 Treatment Diagnosis buttock sores, decreased activity tolerance Onset Date 06/16/23 M3 PT-IP Subjective Start: 06/17/23 11:29 Freq: NEEDED Status: Active Protocol: Document 06/17/23 11:24 DLM (Rec: 06/17/23 12:02 [facility] [id number]) Subjective Physical Therapy Visit Type Type Initial Evaluation Visit Start Time 10:50 Visit Stop Time 11:24 Total Visit Minutes 34 Number of AUTOMATION MACHINE BUILDER Visits 0 Physical Therapy Visit Comments Patient Comments She complains of pain in buttock area with wounds. She reports at home she was getting around the house okay. She has trouble getting the cream on her bottom; hard to reach. Her depends stuck to her wounds and when she pulled it away she had bleeding. She was worried about the bleeding so she came back to the hospital. She does not want to go to SNF rehab. Patient Goals she wants to go home Therapy Pain Assessment Pain When Pain Assessed During Mobility Pain Present Pain Present Pain Reported Location Buttock Intensity 5 Scale Used Numeric (0 - 10) Description Tender,With Movement Pain Behaviors Facial Grimacing,Wincing Pain Management Techniques Re-positioning M4 PT-IP Mobility and Gait Start: 06/17/23 11:29 Freq: NEEDED Status: Active Protocol: Document 06/17/23 11:24 DL (Rec: 06/17/23 12:02 DL [id number]) PT-Bed Mobility Assessment Rolling Level of Assist Minimal Assistance Sit to Supine Sit to Supine Moderate Assistance,Bedrails PT-Transfer Assessment Sit to and From Stand Sit to and from Stand Standby Assistance,Use of Upper Extremities Equipment Transfer Assistive Device Gait Belt,Front Wheeled Walker Transfers Transfer Destination Bed Transfer Technique Stand Step Pivot Transfer Ability Level of Assist Standby Assistance,Use of Upper Extremities Comments Mobility Comments Pt needs assist for LE's to get into bed and then she can use the rails to get straight. She moves slowly in bed due to buttock sores. She uses the bed rails well for positioning. She does not have a bed at home and only sleeps in the recliner. She reports buttock pain when sitting in the recliner at the hospital today. She reports the cushion on her recliner at home is more comfortable. Pt requested back to bed this visit. Pt left on right side for pressure relief. Gait Assessment Gait Gait Assistance Required: Standby Assistance Distance (Feet) 22 Assistive Devices Assistive Device Gait Belt,Front Wheeled Walker Gait Deviations General Gait Pattern Decreased Stride Length,Flexed Trunk Factors Limiting Gait Function Factors Limiting Gait Function Decreased Activity Tolerance, Pain Comments Gait Comments she demonstrates safe use of the FWW but fatigues quickly with gait Stair Climbing Assessment Comments Stair Climbing Comments pt wants to return to bed PT-Balance Assessment Sitting Balance and Reactions Static Sitting Balance Ability Good Dynamic Sitting Balance Ability Good Standing Balance and Reactions Static Standing Balance Ability Good Dynamic Standing Balance Ability Good Device Used FWW M5 PT-IP Objective Assessments Start: 06/17/23 11:29 Freq: NEEDED Status: Active Protocol: Document 06/17/23 11:24 DLM (Rec: 06/17/23 12:02 DL [id number]) Orientation Orientation/Cognition Level of Alertness Alert Orientation Name,Age,Birthday,Month,Date, Year,Day of Week,Place, Situation Language Function Ability No Deficits Noted Safety Awareness Understands Safety Issues Memory Description No Deficits Noted Comments she is not able to verbalize a plan to better manage at home but still refuses SNF Gross Range of Motion Upper Extremity ROM Assessment Within Functional Limits Lower Extremity ROM Assessment Within Functional Limits Strength Upper Extremity Strength Assessment Bilaterally Impaired Lower Extremity Strength Assessment Bilaterally Impaired Comments Strength Comments generalized functional weakness, she is moving all extremities functionally Coordination Assessment Gross Coordination Gross Coordination WNL Muscle Tone Muscle Tone WNL Yes M6 PT-IP Treatment Start: 06/17/23 11:29 Freq: NEEDED Status: Active Protocol: Document 06/17/23 11:24 DLM (Rec: 06/17/23 12:02 DL [id number]) Physical Therapy Treatment Education Education Provided Safety Other Treatments Other Treatment Performed Discussed discharge planning and home safety issues with pt . She reports no falls at home since last hospitalization. She reports no difficulty getting back into the house with her Daughter at last discharge. No family present this visit. Pt reports her Daughter is coming to see her and may be taking her home again at discharge. M7 PT-IP Assessment and Plan Start: 06/17/23 11:29 Freq: NEEDED Status: Active Protocol: Document 06/17/23 11:24 DLM (Rec: 06/17/23 12:02 DL [id number]) PT Summary Assessment and Plan Potential Rehabilitation Potential Good Status of Condition at Evaluation Evolving Summary Impairments Pain,Strength,Balance,Bed Mobility,Transfers,Gait, Activity Tolerance Assessment Summary Anuja is alert and up in the recliner this visit. She is requesting back to bed due to buttock pain sitting. She tolerated short distance of gait with the FWW in her room today. Pt needs assistance to get into bed but she does not have a bed at home. Pt reports she does not have assistance at home from family for wound care on her buttocks. Home health was recommended at discharge last hospitalization but had not started yet. Pt is refusing to go to SNF. From a physical therapy perspective her mobility/gait appears safe for her to return home with her family/ caregiver support. Concerned that if she does not get more help for wound care then she is high risk for re-admission. Goals Bed Mobility Goal Standby Assistance Transfer Goal Independent,Front Wheeled Walker Gait Goal Independent,Front Wheel Walker Gait Distance 50 feet Other Goals Up/down 2 steps with min assist and cane Days to Meet Goals 3 Frequency of Treatment Frequency Of Treatment Once a Day Treatment Plan Physical Therapy Treatment Plan Bed Mobility Training,Transfer Training,Gait Training, Therapeutic Exercise,Balance Retraining,Discharge Planning, Neuromuscular Re-ed Other Recommendations and Next Treatment pt does not have a bed at home Focus but is using the bed while hospitalized Precautions Other Precautions manage buttock wounds Recommendations To Nursing Amount of Assist Needed 1 Person Assist Discharge Recommendations PT Discharge Recommendations Home with Assistance,Home Health Other Discharge Recommendations home health PT to increase her activity tolerance, strengthening, home equipment needs Transportation Needs at Discharge Private Vehicle
[2023-06-17 12:09] VITALS: BP 120/50; PULSE 63
--- NOTE | 2023-06-17 15:33 | CM.DANOTE ---
Initial DCP Assessment Note Pt is a 72 yo female, resident of [place], presents with urinary incontinence and worsening of her bedsore on her buttocks. Patient discharged home one week ago after being treated for appendicitis. Patient has been discharged home w/son and HH services today PCP: Chino Ruggiero Payer: [facility]/ [facility] [employer] Met w/patient this morning to review DCP. Patient lives at home w/her son Eddie and her grandson. Son works time piece repairer. Patient's male family members do not assist patient with bathing, dressing, toileting. Patient says she came in because she went to go to the , took her diaper off and she took off some skin from the sore on her buttocks. Patient mostly sedentary throughout the day, uses a FWW around the house and furniture surfs most of the time. Patient sleeps in a recliner According to PT notes; patient has a difficult time reaching her backside in order to take care of her bed sore and does not bathe often because she does not have help to do so (and feels scared to bathe alone, cannot safely get in/out of shower). Discussed home health services. Patient would be a great candidate for [facility] program which provides increased visits over the first 1-2 weeks, patient agreeable to [facility] , tells the team she will not discharge to a SNF Placed call to [facility] referral office, discussed referral and faxed packet including H+P, demo sheet, completed and signed F2F and HH order. Brooke at [facility] cannot confirm HACH at this time but will send to intake to review, meanwhile, patient can receive standard HH services Updated patient and provided brochure for [facility]. No DC Summary available at this time SAYRA Villegas Discharge Planning/Care Management Advanced directive, confirm from FAMILY Start: 06/16/23 22:39 Freq: Q24H Status: Active Protocol: Document 06/16/23 22:39 MS (Rec: 06/17/23 01:04 MS [id number]) Advance Directive, confirm on record Time 22:00 Person contacted patient Copy received No Advanced directive available on record No CM Discharge Assessment Start: 06/17/23 15:10 Freq: Status: Active Protocol: Document 06/17/23 15:10 JW (Rec: 06/17/23 15:33 [id number]) Discharge Planning Assessment Assigned Special Events Manager SAYRA Flood DPOA/Assigned Designee Name oMrelia Zimmerman dtr ([place]) Contact Information [phone] Advance Directives? Yes Advance Directives on File No History Provided By Patient,Medical Record Prior Living Arrangements House Household Members children Type of transporation used prior to Relies on Others admit Independent with ADL's No Is patient alert and oriented? Yes Patient/Family Preference Home with Home Health Barriers to Discharge No Discharge Plan Home with Home Health Transportation Arrangement Likely naun Morgan at d/c Referrals Initiated Home Health Additional Comment New referral [facility] , hopefully will qualify for [facility] If patient plan is home with home health Yes : Has signed face to face form been completed?
--- NOTE | 2023-06-17 17:41 | PC.NURSE ---
Discharge education given to patient and son, hard scripts given to son. IV removed. All belongings with patient, no items locked in safe. Escorted patient out via wheelchair to son's vehicle.
--- NOTE | 2023-06-18 18:44 | PM.DS.1 ---
History of Present Illness History of Present Illness Chief complaint: Bed Sores, Pain Mngmt Narrative: 72 years old female with history of coronary artery disease, atrial fibrillation on Eliquis, hyperlipidemia, diabetes mellitus type 2, prior valve replacement ER with urinary incontinence and worsening of her bedsore on her buttocks her last hospitalization 1 week ago. She was hospitalized on 06/08/2023 for atrial fibrillation, inflammation of her appendix treated with antibiotics. The patient went home 3 days ago and since then her bedsore is getting worse because of her urinary Incontinence. She was not able to perform wound care for her buttocks since being home. Denies any fever, shortness of breath, chest pain, palpitations, nausea, vomiting, abdominal, diarrhea or dysuria. Lives with several sons at home but she does not have much help with cleaning and hygiene. Compliant to her home medications. In the ER she was found to have leukocytosis, lactic acid 3.5, mildly elevated creatinine of 1.2. She was given clindamycin IV, fluids and was decided to be admitted for further management. Discharge Providers Provider Date of admission: 06/16/23 21:15 Discharge Date: 06/17/23 Primary care physician: Chino Ruggiero MD Consults: 06/16/23 21:25 Consult to Discharge Planning Routine Comment: Consult to Occupational Therapy Evaluate & Treat Comment: Physician Instructions: Evaluate and treat Consult to Physical Therapy Evaluate & Treat Comment: Physician Instructions: Evaluate and Treat 06/16/23 21:30 Consult to Wound Care Routine Comment: Consulting Provider: [facility] 06/17/23 14:15 Consult to Home Health Routine Comment: Reason For Exam: Home health upon discharge Discharge provider: Samuel Galvez MD Summary Hospital Course Discharge Diagnosis: 1. Sacral decubitus ulcer 2. Atrial fibrillation 3. Type 2 DM Hospital Course: Ms. Parker was admitted to the hospital because she was having discomfort from a sacral decubitus ulcer. It did grossly appear infected. She had mildly positive UA but no urinary symptoms. She noted her family at home did not help with her decubitus ulcer. She had no sepsis, no KADE. She was ordered for antibiotics on discharge as she may have had mildy UTI or mild cellulitis but her exam findings were quite equivocal. She should follow up with PCP within one week. She should follow up with wound care and was referred to see wound physician. She was referred to have home health. Exam Vital Signs (past 8 hours): Oxygen Delivery Method Room Air Oxygen Flow Rate 0 Narrative Exam Narrative: GEN: no acute distress CV: irregular PULM: clear bilaterally ABD: soft, nontender Objective Labs 06/17/23 08:25 06/16/23 18:53 [facility] Medical History Abnormal mammogram of left breast Breast screening Colon polyps (08/31/14) Coronary artery disease Diabetes mellitus (~2011) Hyperlipidemia Hypertension (~2011) Incontinence Knee osteoarthritis NSTEMI (non-ST elevated myocardial infarction) (09/2018) Osteopenia (05/20/14) Recent heart attack Rheumatoid arthritis Sedentary lifestyle Stage II pressure ulcer of sacral region (~02/2023) Thyroid nodule Surgical History Anesthesia History of bilateral knee replacement (2009) History of colonoscopy with polypectomy (08/31/14) History of knee replacement History of knee replacement History of left cataract surgery (03/23/15) History of right cataract surgery (04/06/15) Status post delivery (12/21/78) Family History Brother Drowning Father Heart disease Mother Diabetes mellitus Sister Bone cancer Sister Bone cancer Social History marital status: household members: children Smoking Status: Never smoker alcohol intake: current substance use type: does not use Discharge Plan Discharge Plan Patient Disposition: Home Health Service Provider Discharge Comment: Ms. Parker was admitted with bed sores. She need additional help at home. She is given a few more days of antibiotics which she should finish for a possible urine infection and skin irritation. Discharge orders & Medications Prescriptions: New levofloxacin 500 mg tablet 500 mg PO DAILY Qty: 2 0RF doxycycline hyclate 100 mg tablet 100 mg PO BID Qty: 10 0RF Continued (DME) pen needle, diabetic [Comfort EZ Pen [place]] 29 gauge x 1/2 needle See Rx Instructions .ROUTE .MEDSUPPLY Qty: 100 3RF Rx Instructions: use to check blood glucose 3x per day (DME) True Metrix Glucose Test Strip Strip See Rx Instructions .ROUTE .COMPLEX Qty: 100 3RF Dose Instruction: USE TO TEST BLOOD SUGAR DAILY Rx Instructions: USE TO TEST BLOOD SUGAR DAILY Eliquis 5 mg tablet 5 mg PO BID Qty: 180 2RF (DME) Parking Permit... See Rx Instructions .Route .MEDSUPPLY Qty: 1 0RF Rx Instructions: Patient meets criteria for permanent parking placard. insulin lispro [Humalog KwikPen Insulin] 100 unit/mL insulin pen 1 sliding scale dose SUBCUT USEASDIRECTD Qty: 15 3RF Rx Instructions: slide scale 2-14 units SQ TID nitroglycerin 0.4 mg tablet, sublingual 0.4 mg SL Q5-15M PRN (Reason: chest pain) Qty: 90 11RF Rx Instructions: until response; do not exceed 3 doses per episode metformin 500 mg tablet 1,000 mg PO QAM Rx Instructions: TAKE TWO TABLETS BY MOUTH TWICE DAILY atorvastatin [Lipitor] 80 mg tablet 80 mg PO QPM insulin glargine [Lantus Solostar U-100 Insulin] 100 unit/mL (3 mL) insulin pen 40 unit SUBCUT QAM clopidogrel 75 mg tablet 75 mg PO QAM diltiazem HCl 120 mg capsule,extended release 12 hr 240 mg PO BID Qty: 180 0RF metoprolol succinate 100 mg tablet extended release 24 hr 50 mg PO BID 90 Days Qty: 90 0RF Discontinued losartan-hydrochlorothiazide 50-12.5 mg tablet 1 tab PO DAILY 90 Days Qty: 90 0RF Follow up/Referrals: Lamont Wilkinson MD [Physician] - 1 Week (sacral wound) Chino Ruggiero MD [Primary Care Provider] - 3-5 Days Diet/Activity/Treatments Diet: Carb-consistent/Diabetic Visit Report/Discharge Packet Instructions: How to Prevent Pressure Ulcers, How to Prevent Falls Stand Alone Forms: Patient Portal/API, Stroke Signs & Symptoms Discharge Data Primary Care Provider: Chino Ruggiero Attending Provider: Romeo Meza Admit Date/Time: 06/16/23 21:15 Discharges patient from system. Discharge Date/Time: 06/17/23 17:15 Quality VTE Deep Vein Thrombosis/Pulmonary Embolism Present on Admission: No
--- NOTE | 2023-07-02 08:06 | PC.NURSE ---
Late Entry: Ceftriaxone infusion initiated 06/16 at 2237 complete at 2306. Vancomycin infusion initiated 06/16 at 2306 complete 06/17 at 0107.
== END 2023-06-17 17:15 | disposition home health service (06) ==
LOC: ED 21:12 → AC 21:15
PROVIDERS: Internal Medicine; Admitting Provider Internal Medicine; Emergency Provider Emergency Medicine; PCP Family Medicine; Referring Provider Emergency Medicine; Visit Provider Internal Medicine
DX: L89.159 Pressure ulcer of sacral region, unspecified stage (principal); I48.91 Unspecified atrial fibrillation; N17.9 Acute kidney failure, unspecified; E87.21 Acute metabolic acidosis; E11.9 Type 2 diabetes mellitus without complications; Z79.4 Long term (current) use of insulin; E78.5 Hyperlipidemia, unspecified; N39.46 Mixed incontinence; I10 Essential (primary) hypertension; I25.10 Atherosclerotic heart disease of native coronary artery without angina pectoris
CPT/HCPCS: 36415; 71045; 74177; 80053; 81003; 81015; 82550; 82962; 83605; 83690; 84145; 84484; 85025; 85610; 85730; 87040; 87086; 93005; 96365; 96366; 96367; 96372; 97162; 99284; G0378; J0696; Q9967

== ENCOUNTER 2023-06-29 23:22 | Emergency (ER) | payer OTHER, SELFPAY ==
[2023-06-16 22:25] VITALS: BMI 48.8
[2023-06-29 23:28] VITALS: BP 113/56; PULSE 57; RESP 18; TEMP 36.6; O2SAT 97; BMI 44.8
--- NOTE | 2023-06-29 23:33 | ED.GENADULT ---
HPI - General Adult General Chief complaint: Skin/Abscess/Foreign Body Stated complaint: sores that are painful Time Seen by Provider: 06/29/23 23:26 History of Present Illness HPI narrative: 72-year-old female with history of coronary artery disease, hypertension, NSTEMI, diabetes, AFib on Eliquis, recent hospitalization for lactic acidosis and acute kidney injury as well as known chronic sacral decubitus ulcer presents with family in the chief complaint of painful sores on her buttocks. She denies any fever chills, she denies any drainage, she denies dizziness, weakness or lightheadedness. She denies chest pain or shortness of breath. She states that overall she is actually feeling better than when she had been discharged but she is hoping for something to help with the pain. She has home nurses a few times a week and reports that there are referrals for wound care, her doctor has seen her and is working on getting her a hospital bed Related Data Home Medications Medication Instructions Recorded Confirmed atorvastatin 80 mg tablet (Lipitor) 80 mg PO QPM 06/02/23 06/22/23 clopidogrel 75 mg tablet 75 mg PO QAM 06/02/23 06/22/23 insulin glargine 100 unit/mL (3 40 unit SUBCUT QAM 06/02/23 06/22/23 mL) subcutaneous pen (Lantus Solostar U-100 Insulin) metformin 500 mg tablet 1,000 mg PO QAM 06/02/23 06/22/23 Previous Rx's Medication Instructions Recorded Parking Permit... #1 ea 09/08/20 pen needle, diabetic 29 gauge x #100 ea 03/09/22 1/2 (Comfort EZ Pen [place]) blood sugar diagnostic (True #100 strips 11/09/22 Metrix Glucose Test Strip) apixaban 5 mg tablet (Eliquis) 5 mg PO BID #180 tabs 04/12/23 insulin lispro 100 unit/mL 1 sliding scale dose SUBCUT 04/24/23 subcutaneous pen (Humalog KwikPen USEASDIRECTD #15 mL (U-100) Insulin) nitroglycerin 0.4 mg sublingual 0.4 mg sublingual Q5-15M PRN chest 04/24/23 tablet pain #90 tabs diltiazem HCl 120 mg 240 mg PO BID #180 caps 08/26/23 capsule,extended release 12 hr metoprolol succinate 100 mg 50 mg PO BID 90 days #90 tabs 06/09/23 tablet,extended release 24 hr hydrocodone 5 mg-acetaminophen 325 1 tab PO Q4-6H PRN pain #10 tabs 06/30/23 mg tablet Allergies Allergy/AdvReac Type Severity Reaction Status Date / Time Sulfa (Sulfonamide Allergy Mild RASH Verified 06/22/23 13:36 Antibiotics) Review of Systems Review of Systems Narrative: GENERAL: Denies chills, fatigue, malaise, fever, sweats. HEENT: Denies sinus pain, ear pain, sore throat, difficulty swallowing, dizziness. RESPIRATORY: Denies dyspnea, cough, wheezing, hemoptysis, sputum. CARDIOVASCULAR: Denies chest pain, palpitations, orthopnea, edema, GASTROINTESTINAL: Denies nausea, vomiting, abdominal pain, diarrhea, constipation, melena. : Denies dysuria, frequency, incontinence, hematuria, urinary retention. MUSCULOSKELETAL: denies weakness, joint pain, or bony pain SKIN: See HPI NEUROLOGIC: Denies weakness, headache, numbness, change in speech, confusion, seizures, incoordination. PSYCHIATRIC: No concerning psychosocial issues. 12 point review of systems is negative except for those stated above Patient History Medical History (Updated 06/30/23 @ 03:00 by Evan Willard DO) Abnormal mammogram of left breast Breast screening Colon polyps (08/31/14) Coronary artery disease Diabetes mellitus (~2011) Hyperlipidemia Hypertension (~2011) Incontinence Knee osteoarthritis NSTEMI (non-ST elevated myocardial infarction) (09/2018) Osteopenia (05/20/14) Recent heart attack Rheumatoid arthritis Sedentary lifestyle Stage II pressure ulcer of sacral region (~02/2023) Thyroid nodule Vertigo Surgical History Anesthesia History of bilateral knee replacement (2009) History of colonoscopy with polypectomy (08/31/14) History of knee replacement History of knee replacement History of left cataract surgery (03/23/15) History of right cataract surgery (04/06/15) Status post delivery (12/21/78) Family History Brother Drowning Father Heart disease Mother Diabetes mellitus Sister Bone cancer Sister Bone cancer Social History marital status: household members: children Smoking Status: Never smoker alcohol intake: current substance use type: does not use Smoking Status: Never smoker alcohol intake frequency: holidays/special occasions only Substance Use Type: does not use Exam Narrative Exam Narrative: GENERAL: [72] year old patient appears stated age. Well-developed patient, in mild distress. HEAD: Atraumatic. Normocephalic. EYES: Pupils equal round and reactive. Extraocular motions intact. No scleral icterus. No injection or drainage. ENT: Nose without bleeding, purulent drainage. Throat without erythema, tonsillar hypertrophy or exudate. Airway patent. NECK: Trachea midline. Non tender CARDIOVASCULAR: Regular rate and rhythm without murmurs, gallops, or rubs. RESPIRATORY: Clear to auscultation. Breath sounds equal bilaterally. No wheezes, rales, or rhonchi. GASTROINTESTINAL: Abdomen soft, non-tender, nondistended. EXTREMITIES: No edema or joint tenderness. BACK: Nontender without deformity or crepitance. No flank tenderness. NEURO: AOx3. SKIN: Bilateral buttock erythema, nonblanching, no subcu tissue exposed, erythematous in groin and perineum Initial Vital Signs Initial Vital Signs: Vital Signs Temperature 97.9 F 06/29/23 23:28 Pulse Rate 57 L 06/29/23 23:28 Respiratory Rate 18 06/29/23 23:28 Blood Pressure 113/56 L 06/29/23 23:28 Pulse Oximetry 97 06/29/23 23:28 Oxygen Delivery Method Room Air 06/29/23 23:28 Course Orders Ordered: ED Orders 06/30/23 01:20 Complete Blood Count AUTO DIFF Stat Comprehensive Metabolic Panel Stat Lactate (Lactic Acid) Stat Lipase Stat Magnesium Stat 06/30/23 01:33 Urine Culture Stat Urine Microscopic Stat Discontinued Medications Hydrocodone Bitart/Acetaminophen (Hydrocodone/Acet 5/325 Prepack) 1 bottle MISC SEEINSTR ONE Stop: 06/30/23 02:57 Vital Signs Vital signs: Vital Signs - 8 hr 06/29/23 23:28 Temperature 97.9 F Pulse Rate 57 L Respiratory Rate 18 Blood Pressure 113/56 L Pulse Oximetry 97 Oxygen Delivery Method Room Air Medical Decision Making Lab Data 06/30/23 01:20 06/30/23 01:20 Labs: Lab Results 06/30/23 06/30/23 06/30/23 Range/Units 01:20 01:20 01:20 WBC 14.0 H (4.5-11.0) X10^3/uL RBC 3.80 L (4.0-5.2) X10^6/uL Hgb 10.5 L (12.0-16.0) g/dL Hct 31.8 L (36-46) % MCV 83.6 (80-100) fL MCH 27.6 (26-34) PG MCHC 33.0 (30-36) % RDW 14.8 (11.6-14.8) % Plt Count 278 (150-400) X10^3/uL Neut % (Auto) 74.0 (50-75) % Lymph % (Auto) 14.5 L (25-40) % Butler % (Auto) 8.5 (3-14) % Eos % (Auto) 2.3 (2-4) % Baso % (Auto) 0.7 (0-2) % Neut # (Auto) 04707 H (2244-9294) /uL Lymph # (Auto) 2000 (2183-1090) /uL Butler # (Auto) 1200 H (0-900) /uL Eos # (Auto) 300 (0-450) /uL Baso # (Auto) 100 (0-100) /uL Sodium 139 (137-145) mmol/L Potassium 4.5 (3.4-5.1) mmol/L Chloride 106 (98-107) mmol/L Carbon Dioxide 22 (22-32) mmol/L BUN 35 H (7-17) mg/dL Creatinine 1.51 H (0.52-1.04) mg/dL Estimated GFR 37 L (>60) mL/min BUN/Creatinine Ratio 23.2 H (6-22) Glucose 208 H (80-110) mg/dL Lactate 1.9 (0.7-2.1) mmol/L Calcium 9.2 (8.4-10.2) mg/dL Magnesium 1.7 (1.6-2.3) mg/dL Total Bilirubin 0.5 (0.2-1.3) mg/dL AST 25 (14-36) IU/L ALT 18 (<35) IU/L Alkaline Phosphatase 62 (38-126) U/L Total Protein 7.8 (6.3-8.2) g/dL Albumin 3.8 (3.5-5.0) g/dL Globulin 4.0 (1.7-4.1) g/dL Albumin/Globulin Ratio 1.0 (1.0-2.8) Lipase 145 (23-300) U/L Urine RBC (0-5/HPF) Urine WBC (0-5/HPF) Ur Squamous Epith Cells (0-5/HPF) Uric Acid Crystals (None) Urine Bacteria (None) Ur Culture Indicated? 06/30/23 Range/Units 01:33 WBC (4.5-11.0) X10^3/uL RBC (4.0-5.2) X10^6/uL Hgb (12.0-16.0) g/dL Hct (36-46) % MCV (80-100) fL MCH (26-34) PG MCHC (30-36) % RDW (11.6-14.8) % Plt Count (150-400) X10^3/uL Neut % (Auto) (50-75) % Lymph % (Auto) (25-40) % Butler % (Auto) (3-14) % Eos % (Auto) (2-4) % Baso % (Auto) (0-2) % Neut # (Auto) (6999-5322) /uL Lymph # (Auto) (6721-6865) /uL Butler # (Auto) (0-900) /uL Eos # (Auto) (0-450) /uL Baso # (Auto) (0-100) /uL Sodium (137-145) mmol/L Potassium (3.4-5.1) mmol/L Chloride (98-107) mmol/L Carbon Dioxide (22-32) mmol/L BUN (7-17) mg/dL Creatinine (0.52-1.04) mg/dL Estimated GFR (>60) mL/min BUN/Creatinine Ratio (6-22) Glucose (80-110) mg/dL Lactate (0.7-2.1) mmol/L Calcium (8.4-10.2) mg/dL Magnesium (1.6-2.3) mg/dL Total Bilirubin (0.2-1.3) mg/dL AST (14-36) IU/L ALT (<35) IU/L Alkaline Phosphatase (38-126) U/L Total Protein (6.3-8.2) g/dL Albumin (3.5-5.0) g/dL Globulin (1.7-4.1) g/dL Albumin/Globulin Ratio (1.0-2.8) Lipase (23-300) U/L Urine RBC 1-5/hpf D (0-5/HPF) Urine WBC 5-10/hpf H (0-5/HPF) Ur Squamous Epith Cells 1-5 /hpf (0-5/HPF) Uric Acid Crystals Occasional (None) Urine Bacteria Few (2-10) H (None) Ur Culture Indicated? Specimen cultured Urine Dip Bedside Urine Glucose Negative Bedside Urine Bilirubin - Negative Bedside Urine Ketone - Negative Urine Specific [place] 1.025 Bedside Urine Occult Blood ++ Bedside Urine pH 5.5 Bedside Urine Protein - Negative Bedside Urine Urobilinogen - Negative Bedside Urine Nitrite - Negative Bedside Urine Leukocytes - Negative Esterase Point of care testing: Urine Dip Bedside Urine Glucose Negative Bedside Urine Bilirubin - Negative Bedside Urine Ketone - Negative Urine Specific [place] 1.025 Bedside Urine Occult Blood ++ Bedside Urine pH 5.5 Bedside Urine Protein - Negative Bedside Urine Urobilinogen - Negative Bedside Urine Nitrite - Negative Bedside Urine Leukocytes - Negative Esterase MDM Narrative Medical decision making narrative: [72] year old patient presents with painful decubitus ulcers Multiple etiologies for patient's symptoms considered including, but not limited to: [Infected decubitus ulcers versus chronic decubitus ulcers versus other] Prior Charts reviewed in our EMR Primary Historian: patient Labs reviewed and interpreted by myself: Slight increasing creatinine, nothing significant, patient otherwise largely at baseline Patient's symptoms improved over duration of stay with above-stated therapies. No indications for admission, condition of ulcers is improving, no need for a specific or immediate intervention. Pain meds given here and some sent to her pharmacy of choice Findings and discharge diagnosis discussed with patient/family followed by verbalization of understanding Return precautions discussed with patient/family whom verbalize understanding of diagnosis and plan Discharge Plan Departure Patient Disposition: Home Clinical Impression: Decubitus ulcer of sacral region, stage 2 Instructions: DI for Pressure Injuries Activity Restrictions/Additional Instructions: *You have been diagnosed with [painful sacral decubitus ulcer] *What to do: *Please continue to take your regular medications as directed. [x ] New medication prescriptions sent to your pharmacy: [ [facility]] [ ] New medication written as a paper prescription [ ] No new medications given *Please follow up with your primary care provider in 2-3 days, call for an appointment. Let them know you were seen in the Emergency Department and that we ask that you be seen in follow up. We will electronically transmit a record of today's note if your PCP is in our system *Return to Emergency Department if you should have any new, worsening or concerning symptoms, such as [fever greater than 101 F, shaking chills, worsening pain, persistent vomiting or other bothersome symptoms] You have been prescribed a short course of narcotic medications. These are potentially dangerous and addictive medications that should be used carefully. While on these medications you cannot drive or operate heavy machinery. Additionally, you cannot sign legal documents or perform any duties such as this. Many people get constipated on narcotic medications so it would be advisable to discuss stool softeners with the pharmacist when you flower buncher or picker your prescription. Please understand that we cannot provide further refills of narcotics or controlled substances through the ED and your pain management will need to be through your Primary Care Provider Prescriptions: New hydrocodone-acetaminophen 5-325 mg tablet 1 tab PO Q4-6H PRN (Reason: pain) Qty: 10 0RF No Action (DME) pen needle, diabetic [Comfort EZ Pen [place]] 29 gauge x 1/2 needle See Rx Instructions .ROUTE .MEDSUPPLY Qty: 100 3RF Rx Instructions: use to check blood glucose 3x per day (DME) True Metrix Glucose Test Strip Strip See Rx Instructions .ROUTE .COMPLEX Qty: 100 3RF Dose Instruction: USE TO TEST BLOOD SUGAR DAILY Rx Instructions: USE TO TEST BLOOD SUGAR DAILY Eliquis 5 mg tablet 5 mg PO BID Qty: 180 2RF (DME) Parking Permit... See Rx Instructions .Route .MEDSUPPLY Qty: 1 0RF Rx Instructions: Patient meets criteria for permanent parking placard. insulin lispro [Humalog KwikPen Insulin] 100 unit/mL insulin pen 1 sliding scale dose SUBCUT USEASDIRECTD Qty: 15 3RF Rx Instructions: slide scale 2-14 units SQ TID nitroglycerin 0.4 mg tablet, sublingual 0.4 mg SL Q5-15M PRN (Reason: chest pain) Qty: 90 11RF Rx Instructions: until response; do not exceed 3 doses per episode metformin 500 mg tablet 1,000 mg PO QAM Rx Instructions: TAKE TWO TABLETS BY MOUTH TWICE DAILY atorvastatin [Lipitor] 80 mg tablet 80 mg PO QPM insulin glargine [Lantus Solostar U-100 Insulin] 100 unit/mL (3 mL) insulin pen 40 unit SUBCUT QAM clopidogrel 75 mg tablet 75 mg PO QAM diltiazem HCl 120 mg capsule,extended release 12 hr 240 mg PO BID Qty: 180 0RF metoprolol succinate 100 mg tablet extended release 24 hr 50 mg PO BID 90 Days Qty: 90 0RF Referrals: Chino Ruggiero MD [Primary Care Provider] - Stand Alone Forms: Patient Portal/API
--- NOTE | 2023-06-30 01:15 | PC.NURSE ---
per pt's request purewick placed, pt's groin area red and excoriated, and tender, redness and irritation under the pannus
[2023-06-30 01:28] LABS: Add Manual Diff / Slide Review NO; Basophils Absolute Auto 100 /uL (0-100); Basophils Percent Auto 0.7 % (0-2); Eosinophils Absolute Auto 300 /uL (0-450); Eosinophils Percent Auto 2.3 % (2-4); Hematocrit 31.8 % (36-46); Hemoglobin 10.5 g/dL (12.0-16.0); Lymphocytes Absolute Auto 2000 /uL (1100-4500); Lymphocytes Percent Auto 14.5 % (25-40); Mean Corpuscular Hemoglobin 27.6 PG (26-34); Mean Corpuscular Volume 83.6 fL (80-100); Monocytes Absolute Auto 1200 /uL (0-900); Monocytes Percent Auto 8.5 % (3-14); Neutrophils Absolute Auto 10400 /uL (1500-7000); Platelet Count 278 X10^3/uL (150-400); Red Cell Distribution Width 14.8 % (11.6-14.8)
[2023-06-30 01:40] LABS: Alanine Aminotransferase 18 IU/L (<35); Albumin 3.8 g/dL (3.5-5.0); Alkaline Phosphatase 62 U/L (38-126); Aspartate Aminotransferase 25 IU/L (14-36); BUN Creatinine Ratio 23.2 (6-22); Bilirubin Total 0.5 mg/dL (0.2-1.3); Blood Urea Nitrogen 35 mg/dL (7-17); Calcium 9.2 mg/dL (8.4-10.2); Carbon Dioxide 22 mmol/L (22-32); Chloride 106 mmol/L (98-107); Estimated Glomerular Filt Rate 37 mL/min (>60); Glucose 208 mg/dL (80-110); HEMOLYSIS < 15 (0-50); Lactate (Lactic Acid) 1.9 mmol/L (0.7-2.1); Lipase 145 U/L (23-300); Magnesium 1.7 mg/dL (1.6-2.3); Potassium 4.5 mmol/L (3.4-5.1); Sodium 139 mmol/L (137-145); Total Protein 7.8 g/dL (6.3-8.2)
[2023-06-30 01:52] LABS: RBC Urine 1-5/HPF (0-5/HPF); WBC Urine 5-10/HPF (0-5/HPF)
[2023-06-30 01:54] LABS: Squamous Epithelial Cell Urine 1-5 /HPF (0-5/HPF); Uric Acid Crystals Urine Occasional
[2023-06-30 01:57] LABS: Culture Indicated Urine Specimen Cultured
[2023-06-30 01:58] LABS: Bacteria Urine Few (2-10)
[2023-06-30] MEDS: HYDROCODONE/ACET 5/325 PREPACK 1 BOTTLE MISC (03:06)
[2023-06-30 03:26] VITALS: BP 115/60; PULSE 60; RESP 18; O2SAT 98
== END 2023-06-30 03:37 | disposition home or self-care (01) ==
PROVIDERS: Emergency Provider Emergency Medicine; PCP Family Medicine
DX: L89.152 Pressure ulcer of sacral region, stage 2 (principal); Z79.899 Other long term (current) drug therapy
CPT/HCPCS: 36415; 80053; 81003; 81015; 83605; 83690; 83735; 85025; 87077; 87086; 87186; 99283

== ENCOUNTER → 2023-07-27 15:51 | Outpatient (CLI) | payer OTHER, SELFPAY ==
[2023-06-16 22:25] VITALS: BMI 48.8
[2023-07-27 17:47] LABS: Appearance Urine UA CLOUDY; Bilirubin Urine UA NEGATIVE (NEGATIVE); Color Urine UA YELLOW; Glucose Urine UA NEGATIVE (Negative); Ketones Urine UA NEGATIVE (NEGATIVE); Leukocyte Esterase Urine UA 2+ (NEGATIVE); Nitrite Urine UA POSITIVE (Negative); Occult Blood Urine UA TRACE-INTACT (Negative); Protein Urine UA NEGATIVE (Negative); Urobilinogen Urine UA 0.2 E.U./dL (0.2)
[2023-07-27 18:04] LABS: Bacteria Urine Many (>30); Culture Indicated Urine Specimen Cultured; RBC Urine 0-1/HPF (0-5/HPF); Squamous Epithelial Cell Urine 0-1 /HPF (0-5/HPF); WBC Urine 30-100/HPF (0-5/HPF)
[2023-07-27 18:09] LABS: Uric Acid Crystals Urine Moderate
== END ==
PROVIDERS: PCP Family Medicine; Referring Provider Family Medicine; Visit Provider Family Medicine
DX: N39.0 Urinary tract infection, site not specified (principal)
CPT/HCPCS: 81001; 87077; 87086; 87186

== ENCOUNTER → 2023-08-11 09:56 | Outpatient (CLI) | payer OTHER, SELFPAY ==
[2023-06-16 22:25] VITALS: BMI 48.8
[2023-08-11 11:22] LABS: Hemoglobin A1C% w Est Avg Glu 7.5 % (4.0-6.0)
[2023-08-11 11:49] LABS: Alanine Aminotransferase 21 IU/L (<35); Albumin 3.8 g/dL (3.5-5.0); Albumin Globulin Ratio 1.1 (1.0-2.8); Alkaline Phosphatase 55 U/L (38-126); Aspartate Aminotransferase 18 IU/L (14-36); BUN Creatinine Ratio 29.4 (6-22); Bilirubin Total 0.2 mg/dL (0.2-1.3); Blood Urea Nitrogen 35 mg/dL (7-17); Calcium 9.4 mg/dL (8.4-10.2); Carbon Dioxide 24 mmol/L (22-32); Chloride 103 mmol/L (98-107); Cholesterol 147 mg/dL (140-199); Estimated Glomerular Filt Rate 49 mL/min (>60); Globulin 3.6 g/dL (1.7-4.1); Glucose 147 mg/dL (80-110); HDL Cholesterol 42 mg/dL (40-60); HEMOLYSIS < 15 (0-50); LDL Cholesterol Calculated 78 mg/dL (<100); Potassium 4.3 mmol/L (3.4-5.1); Sodium 136 mmol/L (137-145); Total Protein 7.4 g/dL (6.3-8.2); Triglycerides 134 mg/dL (35-150)
== END ==
PROVIDERS: PCP Family Medicine; Referring Provider Family Medicine; Visit Provider Family Medicine
DX: E11.9 Type 2 diabetes mellitus without complications (principal); E78.5 Hyperlipidemia, unspecified; E04.1 Nontoxic single thyroid nodule; I35.0 Nonrheumatic aortic (valve) stenosis; I25.10 Atherosclerotic heart disease of native coronary artery without angina pectoris; I10 Essential (primary) hypertension
CPT/HCPCS: 80053; 80061; 83036; 84443

== ENCOUNTER 2023-08-27 17:35 | Inpatient (IN) | payer OTHER, SELFPAY ==
[2023-06-16 22:25] VITALS: BMI 48.8
[2023-08-27] VITALS (13 sets, daily range): BP systolic 124–138; BP diastolic 60–62; PULSE 56–78; RESP 14–26; TEMP 36.4; O2SAT 98–100; BMI 43.9
--- NOTE | 2023-08-27 17:46 | DI.RAD.S_ITS ---
PROCEDURE: XR CHEST 1V INDICATIONS: chest pain TECHNIQUE: One view of the chest was acquired. COMPARISON: [facility], CR, XR CHEST 1V, 06/16/2023, 18:30. FINDINGS: Surgical changes and devices: None. Lungs and pleura: Lungs are clear. No pleural effusions or pneumothorax. Mediastinum: Mediastinal contours appear normal. Heart size is normal. Bones and chest wall: No suspicious bony lesions. Overlying soft tissues appear unremarkable. IMPRESSION: No acute process. Dictated by: Cindi Reese M.D. on 08/27/2023 at 18:14 Approved by: Cindi Reese M.D. on 08/27/2023 at 18:14
[2023-08-27 18:02] LABS: INR 1.4 (0.9-1.3)
[2023-08-27 18:04] LABS: Add Manual Diff / Slide Review NO; Basophils Absolute Auto 100 /uL (0-100); Basophils Percent Auto 0.6 % (0-2); Eosinophils Absolute Auto 200 /uL (0-450); Eosinophils Percent Auto 1.4 % (2-4); Hematocrit 34.3 % (36-46); Hemoglobin 11.3 g/dL (12.0-16.0); Lymphocytes Absolute Auto 2700 /uL (1100-4500); Lymphocytes Percent Auto 19.2 % (25-40); Mean Corpuscular HGB Conc 32.9 % (30-36); Mean Corpuscular Hemoglobin 27.6 PG (26-34); Mean Corpuscular Volume 83.8 fL (80-100); Monocytes Absolute Auto 1000 /uL (0-900); Monocytes Percent Auto 7.1 % (3-14); Neutrophils Absolute Auto 9900 /uL (1500-7000); Neutrophils Percent Auto 71.7 % (50-75); Platelet Count 288 X10^3/uL (150-400); Red Blood Cell Count 4.09 X10^6/uL (4.0-5.2); Red Cell Distribution Width 15.3 % (11.6-14.8); White Blood Cell Count 13.8 X10^3/uL (4.5-11.0)
[2023-08-27 18:05] LABS: PTT Partial Thromboplastin Tim 35 SECONDS (26-36)
[2023-08-27 18:06] LABS: Alanine Aminotransferase 16 IU/L (<35); Albumin 4.1 g/dL (3.5-5.0); Albumin Globulin Ratio 1.1 (1.0-2.8); Alkaline Phosphatase 61 U/L (38-126); Aspartate Aminotransferase 17 IU/L (14-36); BUN Creatinine Ratio 29.6 (6-22); Bilirubin Total 0.5 mg/dL (0.2-1.3); Blood Urea Nitrogen 47 mg/dL (7-17); Calcium 9.4 mg/dL (8.4-10.2); Carbon Dioxide 25 mmol/L (22-32); Chloride 101 mmol/L (98-107); Creatine Kinase 32 U/L (30-135); Estimated Glomerular Filt Rate 35 mL/min (>60); Globulin 3.9 g/dL (1.7-4.1); Glucose 221 mg/dL (80-110); HEMOLYSIS < 15 (0-50); Lipase 209 U/L (23-300); Magnesium 1.7 mg/dL (1.6-2.3); Sodium 133 mmol/L (137-145)
[2023-08-27 18:07] LABS: Potassium 5.7 mmol/L (3.4-5.1)
--- NOTE | 2023-08-27 18:09 | ED.CHESTPAIN ---
HPI - Chest Pain General Chief Complaint: Chest Pain Stated Complaint: inability to take a deep breath/cough Time Seen by Provider: 08/27/23 18:09 Source: patient and EMS Mode of arrival: EMS History of Present Illness HPI narrative: 73-year-old woman with a history of atrial fibrillation on Eliquis, diabetes, hyperlipidemia, coronary artery disease, aortic valve replacement, prior history of thyroid cancer recent hospital admission for medical management of appendicitis and chronic urinary incontinence and bed sores related to that. Hospitalized at [facility] with discharges on June 09 and admitted again on June 18 who presents today complaining of increasing dyspnea. When questioned about her prior bedsores she notes that she still uses pull-ups and sometimes can not quite get to the bathroom(her son notes that she gets to the bathroom less than she thinks that she does) and she notes that she is typically wet all of the time but piece frequently through the day. She does not complain of lower extremity edema but the central chest pressure tightness heaviness feeling has persisted throughout the day. Related Data Home Medications Medication Instructions Recorded Confirmed atorvastatin 80 mg tablet (Lipitor) 80 mg PO QPM 06/02/23 08/28/23 clopidogrel 75 mg tablet 75 mg PO QAM 06/02/23 08/28/23 insulin glargine 100 unit/mL (3 40 unit SUBCUT QAM 06/02/23 08/28/23 mL) subcutaneous pen (Lantus Solostar U-100 Insulin) metformin 500 mg tablet 1,000 mg PO QAM 06/02/23 08/28/23 Previous Rx's Medication Instructions Recorded Parking Permit... #1 ea 09/08/20 pen needle, diabetic 29 gauge x #100 ea 03/09/22 1/2 (Comfort EZ Pen [place]) blood sugar diagnostic (True #100 strips 11/09/22 Metrix Glucose Test Strip) apixaban 5 mg tablet (Eliquis) 5 mg PO BID #180 tabs 04/12/23 insulin lispro 100 unit/mL 1 sliding scale dose SUBCUT 04/24/23 subcutaneous pen (Humalog KwikPen USEASDIRECTD #15 mL (U-100) Insulin) nitroglycerin 0.4 mg sublingual 0.4 mg sublingual Q5-15M PRN chest 04/24/23 tablet pain #90 tabs diltiazem HCl 120 mg 240 mg (2 x 120 mg) PO BID #180 06/09/23 capsule,extended release 12 hr caps metoprolol succinate 100 mg 50 mg (1/2 x 100 mg) PO BID 90 06/09/23 tablet,extended release 24 hr days #90 tabs hydrocodone 5 mg-acetaminophen 325 1 tab PO Q4-6H PRN pain #10 tabs 06/30/23 mg tablet Allergies Allergy/AdvReac Type Severity Reaction Status Date / Time Sulfa (Sulfonamide Allergy Mild RASH Verified 06/22/23 13:36 Antibiotics) Review of Systems Review of Systems Narrative: Pertinent positive and negative findings as per HPI Patient History Medical History (Updated 08/28/23 @ 01:21 by Romeo Meza MD) Vertigo Sedentary lifestyle Stage II pressure ulcer of sacral region (~02/2023) Hyperlipidemia Thyroid nodule Incontinence Breast screening Abnormal mammogram of left breast NSTEMI (non-ST elevated myocardial infarction) (09/2018) Recent heart attack Coronary artery disease Osteopenia (05/20/14) Knee osteoarthritis Hypertension (~2011) Diabetes mellitus (~2011) Rheumatoid arthritis Colon polyps (08/31/14) Surgical History History of bilateral knee replacement (2009) History of colonoscopy with polypectomy (08/31/14) History of left cataract surgery (03/23/15) History of right cataract surgery (04/06/15) Anesthesia History of knee replacement History of knee replacement Status post delivery (12/21/78) Family History Brother Drowning Father Heart disease Mother Diabetes mellitus Sister Bone cancer Sister Bone cancer Social History marital status: household members: children and none Smoking Status: Never smoker alcohol intake: current substance use type: does not use Smoking Status: Never smoker alcohol intake frequency: holidays/special occasions only Substance Use Type: does not use Exam Initial Vital Signs Initial Vital Signs: Vital Signs Temperature 97.6 F 08/27/23 17:47 Pulse Rate 56 L 08/27/23 17:47 Respiratory Rate 20 08/27/23 17:47 Blood Pressure 128/60 08/27/23 17:47 Pulse Oximetry 98 08/27/23 17:47 Oxygen Delivery Method Room Air 08/27/23 17:47 General: Older, chronically ill-appearing but in no acute distress. Able to give a complete and coherent history. HEENT: Moist mucous membranes, normal sclera with reactive pupils, Neck: No JVD, supple Respiratory: Lungs are clear to auscultation, minor bibasilar rales, no rhonchi. Full and symmetrical air movement Cardiac: Regular rate and rhythm no murmurs no bruits Abdomen: Soft, nontender, good bowel tones, no flank pain Skin: Warm and dry, Perineum: She does have redness from the sacrum over the buttocks and into the upper thighs without overt skin breakdown at this time. Despite being recently thoroughly cleaned and appear wet catheter in place she is wet all the way through Neurologic: Globally weak but otherwise Grossly neurologically intact with no obvious asymmetries or abnormalities Extremities: No trauma, well perfused, no significant lower extremity edema Psych: Cooperative, appropriate affect Course Orders Ordered: ED Orders 08/27/23 22:50 Education, smoking cessation ONGOING 08/27/23 22:55 Consult to Discharge Planning Routine Consult to Occupational Therapy Evaluate & Treat Consult to Physical Therapy Evaluate & Treat 08/28/23 01:30 Urinalysis and Microscopic Stat 08/28/23 07:00 Comprehensive Metabolic Panel DAILY Magnesium DAILY NT-proBNP (BNP-Adult 18+) DAILY 08/29/23 07:00 Comprehensive Metabolic Panel DAILY NT-proBNP (BNP-Adult 18+) DAILY 08/30/23 07:00 Comprehensive Metabolic Panel DAILY NT-proBNP (BNP-Adult 18+) DAILY Acetaminophen (Acetaminophen 325 Mg Tablet) 650 mg PO Q6H PRN PRN Reason: Fever/Mild Pain (1-3) Last Admin: 08/28/23 00:40 Dose: 650 mg Documented By: CASSIA Hydrocodone Bitart/Acetaminophen (Hydrocodone/Acet 5/325 Tablet) 1 tab PO Q4H PRN PRN Reason: pain Apixaban (Apixaban 5 Mg Tablet) 5 mg PO BID RENY Atorvastatin Calcium (Atorvastatin 20 Mg Tablet) 80 mg PO QPM RENY Bisacodyl (Bisacodyl 5 Mg Tablet) 10 mg PO DAILY PRN PRN Reason: Constipation Calcium Carbonate (Calcium Carbonate 500 Mg Tab) 1,000 mg PO Q4HR PRN PRN Reason: Dyspepsia Clopidogrel Bisulfate (Clopidogrel 75 Mg Tablet) 75 mg PO DAILY ON LICENSE OF [facility] Diltiazem HCl (Diltiazem Cd 120 Mg Cap) 240 mg PO BID ON LICENSE OF [facility] Furosemide (Furosemide 20 Mg/2 Ml Vial) 20 mg IV BID ON LICENSE OF [facility] Dextrose (D10w) 100 mls @ 1,200 mls/hr IV PRN PRN PRN Reason: Hypoglycemia Insulin Glargine (Insulin Glargine 100 Unit/Ml 3ml Pen) 40 unit SUBCUT DAILY ON LICENSE OF [facility] Insulin Human Lispro (Insulin Lispro 100 Unit/Ml 3ml Vial) 0 unit SUBCUT ACHS RENY; Protocol Metoprolol Succinate (Metoprolol Er 50 Mg Tablet) 50 mg PO BID RENY Morphine Sulfate (Morphine 4 Mg/Ml Inj) 3 mg IV Q4HR PRN PRN Reason: Pain, Severe (7-10) Naloxone HCl (Naloxone 0.4 Mg/Ml Vial) 0.2 mg IV Q2MIN PRN PRN Reason: Opiate Reversal Nitroglycerin (Nitroglycerin 0.4 Mg Sl Tab) 0.4 mg SL Q5M PRN PRN Reason: chest pain Ondansetron HCl (Ondansetron 4 Mg/2 Ml Inj) 4 mg IV Q8HR PRN PRN Reason: Nausea And Vomiting Discontinued Medications Aspirin (Aspirin 81 Mg Chew Tab) 324 mg PO NOW ONE Stop: 08/27/23 17:47 Last Admin: 08/27/23 23:18 Dose: Not Given Documented By: PA Furosemide (Furosemide 40 Mg/4 Ml Vial) 40 mg IV NOW ONE Stop: 08/27/23 22:33 Last Admin: 08/27/23 23:03 Dose: 40 mg Documented By: LEWIS Influenza Virus Vaccine (Influenza Hd Vaccine 0.7 Ml Syringe) 0.7 ml IM .ONCE ONE Stop: 08/28/23 00:25 Insulin Human Regular (Insulin Regular 100 Unit/Ml 3 Ml Vial) 5 unit IV NOW ONE Stop: 08/27/23 22:34 Last Admin: 08/27/23 23:03 Dose: 5 unit Documented By: LEWIS Co-signed By: PA Non-Formulary Medication (Insulin Lispro [Humalog Kwikpen Insulin]) 1 sliding scale dose SUBCUT USEASDIRECTD ON LICENSE OF [facility] Vital Signs Vital signs: Vital Signs - 8 hr 08/27/23 19:30 08/27/23 20:00 08/27/23 20:30 Pulse Rate 62 59 L 62 Respiratory Rate 19 21 22 Pulse Oximetry 99 100 99 08/27/23 21:00 08/27/23 21:30 08/27/23 22:00 Pulse Rate 62 65 71 Respiratory Rate 15 18 24 Pulse Oximetry 98 99 99 08/27/23 22:30 Pulse Rate 78 Respiratory Rate 20 Pulse Oximetry 99 MDM - Chest Pain Lab Data 08/27/23 17:40 08/27/23 17:40 Labs: Lab Results 08/27/23 Range/Units 17:40 WBC 13.8 H (4.5-11.0) X10^3/uL RBC 4.09 (4.0-5.2) X10^6/uL Hgb 11.3 L (12.0-16.0) g/dL Hct 34.3 L (36-46) % MCV 83.8 (80-100) fL MCH 27.6 (26-34) PG MCHC 32.9 (30-36) % RDW 15.3 H (11.6-14.8) % Plt Count 288 (150-400) X10^3/uL Neut % (Auto) 71.7 (50-75) % Lymph % (Auto) 19.2 L (25-40) % [place] % (Auto) 7.1 (3-14) % Eos % (Auto) 1.4 L (2-4) % Baso % (Auto) 0.6 (0-2) % Neut # (Auto) 9900 H (6063-6605) /uL Lymph # (Auto) 2700 (0170-8712) /uL [place] # (Auto) 1000 H (0-900) /uL Eos # (Auto) 200 (0-450) /uL Baso # (Auto) 100 (0-100) /uL PT 16.0 H (10.1-12.7) SECONDS INR 1.4 H (0.9-1.3) APTT 35 (26-36) SECONDS Sodium 133 L (137-145) mmol/L Potassium 5.7 H (3.4-5.1) mmol/L Chloride 101 (98-107) mmol/L Carbon Dioxide 25 (22-32) mmol/L BUN 47 H (7-17) mg/dL Creatinine 1.59 H (0.52-1.04) mg/dL Estimated GFR 35 L (>60) mL/min BUN/Creatinine Ratio 29.6 H (6-22) Glucose 221 H (80-110) mg/dL Calcium 9.4 (8.4-10.2) mg/dL Magnesium 1.7 (1.6-2.3) mg/dL Total Bilirubin 0.5 (0.2-1.3) mg/dL AST 17 (14-36) IU/L ALT 16 (<35) IU/L Alkaline Phosphatase 61 (38-126) U/L Total Creatine Kinase 32 (30-135) U/L Troponin I < 0.012 (0.01-0.034) ng/mL NT-Pro-B Natriuret Pep 1240 H (<125) pg/mL Total Protein 8.0 (6.3-8.2) g/dL Albumin 4.1 (3.5-5.0) g/dL Globulin 3.9 (1.7-4.1) g/dL Albumin/Globulin Ratio 1.1 (1.0-2.8) Lipase 209 (23-300) U/L Point of Care Testing Glucose POC 220 MDM Narrative Medical decision making narrative: CC: Dyspnea Complicating co-morbidities: Recent hospital admissions for medical management for appendicitis and infection related to bed sores Data collected from: patient, Social determinants of health that may influence the patients condition: Medical records reviewed: Recent hospital admissions and discharges all reviewed Differential considered: COPD exacerbation, acute coronary syndrome, infection Exam documented above, pertinent findings include: Lab Test results independently reviewed as above. Pertinent findings: CBC shows mild leukocytosis at 13.8 with H and H 11.3 and 34.3 which is a bit higher than her baseline. There is not significant left shift INR is elevated at 1.4 Chemistries are reviewed and notable for a sodium of 133, potassium elevated at 5.7, creatinine bumped to 1.59 it appears that her baseline is closer to the 1-1.1 range. Glucose is slightly elevated at 221. Troponin is undetectable BNP is slightly elevated at 1240 Independently reviewed EKG sinus rhythm at a rate of 58, she does not have peaked T-waves nor widening QRS. No acute ischemic changes Most recent echocardiogram is June 04, 2023 shows small left ventricular cavity with normal systolic function at 65-70%. No obvious focal wall abnormalities Imaging studies independently reviewed: Chest x-ray shows no acute process and specifically no pleural effusions or obvious volume overload Treatments: Carbajal catheter was placed, IV Lasix, perineum and area skin breakdown concerned thoroughly cleaned and dried Discussion: 73-year-old woman with multiple recent hospital admissions, chest pressure and a sensation that she was unable to get a deep breath all day. Clinical exam suggests overall deconditioning, developing skin breakdown over her perineum without overt bedsores, mild volume overload, acute kidney injury with hyperkalemia without acute EKG changes. With the volume issues being intravascularly low and extravascular early high, we will place a Carbajal catheter for more effective urine output evaluation and to help get her perineal area completely cleared. I think that a small dose of Lasix will be appropriate as well as hospitalization for acute exacerbation of heart failure with hyperkalemia and acute kidney injury. Reviewed with Dr Meza, admitting hospitalist Discharge Plan Departure Patient Disposition: Admitted As Inpatient Clinical Impression: Acute kidney injury, Acute hyperkalemia Acute exacerbation of CHF (congestive heart failure) Qualifiers: Heart failure type: unspecified Qualified Code(s): I50.9 - Heart failure, unspecified Pressure ulcer Qualifiers: Pressure injury location: contiguous region involving back and buttock Pressure injury stage: stage 1 Laterality: unspecified laterality Qualified Code(s): L89.41 - Pressure ulcer of contiguous site of back, buttock and hip, stage 1 Admit Date/Time: 08/27/23 22:54 Admit Provider: Romeo Meza
--- NOTE | 2023-08-27 18:15 | PC.NURSE ---
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
[2023-08-27 18:18] LABS: Troponin I < 0.012 ng/mL (0.01-0.034)
[2023-08-27 18:34] LABS: NT-proBNP (BNP-Adult 18+) 1240 pg/mL (<125)
--- NOTE | 2023-08-27 19:03 | PC.NURSE ---
This morning patient had sudden onset chest pain with shortness of breath that she states was a 8/10 aching pain which lasted until the paramedics arrived at her house this evening. Pt currently denies any pain and shortness of breath. She lives at home with her son, grandson, and grandson's close friend. Pt denies fevers,nausea. Pt has had a cough and headache last week. Pt states she walks around at home but there is so much stuff in the hallways that she cannot use her walker or cane.
[2023-08-27] MEDS: FUROSEMIDE 40 MG/4 ML VIAL IV (23:03)
[2023-08-27] MEDS: INSULIN REGULAR 100 UNIT/ML 3 ML VIAL IV (23:03)
[2023-08-28] VITALS (15 sets, daily range): BP systolic 101–144; BP diastolic 41–62; PULSE 58–69; RESP 17–19; TEMP 35.7–36.3; O2SAT 96–99; BMI 43.7
[2023-08-28] MEDS: ACETAMINOPHEN 325 MG TABLET 650 MG PO (00:40)
--- NOTE | 2023-08-28 00:52 | PM.HP.1 ---
History of Present Illness History of Present Illness Chief complaint: inability to take a deep breath/cough Narrative: 73 years old, female, with history of atrial fibrillation on Eliquis, diabetes mellitus type II, hypertension, hyperlipidemia, corner, artery, disease, history of thyroid, cancer, aortic valve replacement, present to the ER with increased dyspnea and chest tightness since this morning. She was recently hospitalized for medical management of appendicitis and chronic urinary incontinence and bedsores. She reports the chest pain is midsternal, aggravated by taking deep breaths. Denies any fever, populations, nausea, vomiting, abdominal pain, diarrhea, or dysuria. Reports some mild cough in the last week, and decrease exertional tolerance due to shortness of breath. Compliant to her home medications. Laboratory shows WBC 13.8, H&H, 11.3/35.3, platelets 288, INR 1.4, sodium, 133, potassium 5.7, creatinine 1.59, blood sugar 221, A1c, 7.5, LFTs, normal, troponins, 0.012, BNP 1240, lipase, 209, chest x-ray unremarkable, EKG normal sinus rhythm of 58, In the ER, she was given Lasix 40 mg IV, aspirin, 325 mg PO, insulin 5 units sub Q and Carbajal catheter was placed. Vital signs shows temperature 97.6, heart rate 65, blood pressure 138/62, oxygen situation, 99% on room air. [facility] Medical History (Updated 08/28/23 @ 01:21 by Romeo Meza MD) Vertigo Sedentary lifestyle Stage II pressure ulcer of sacral region (~02/2023) Hyperlipidemia Thyroid nodule Incontinence Breast screening Abnormal mammogram of left breast NSTEMI (non-ST elevated myocardial infarction) (09/2018) Recent heart attack Coronary artery disease Osteopenia (05/20/14) Knee osteoarthritis Hypertension (~2011) Diabetes mellitus (~2011) Rheumatoid arthritis Colon polyps (08/31/14) Surgical History History of bilateral knee replacement (2009) History of colonoscopy with polypectomy (08/31/14) History of left cataract surgery (03/23/15) History of right cataract surgery (04/06/15) Anesthesia History of knee replacement History of knee replacement Status post delivery (12/21/78) Family History Brother Drowning Father Heart disease Mother Diabetes mellitus Sister Bone cancer Sister Bone cancer Social History marital status: household members: children and none Smoking Status: Never smoker alcohol intake: current substance use type: does not use Meds Home Medications and Allergies Home Medications Medication Instructions Recorded Confirmed Type Parking Permit... #1 ea 09/08/20 06/22/23 Rx pen needle, diabetic 29 gauge x #100 ea 03/09/22 06/22/23 Rx 1/2 (Comfort EZ Pen [place]) blood sugar diagnostic (True #100 strips 11/09/22 06/22/23 Rx Metrix Glucose Test Strip) apixaban 5 mg tablet (Eliquis) 5 mg PO BID #180 tabs 04/12/23 08/28/23 Rx insulin lispro 100 unit/mL 1 sliding scale dose SUBCUT 04/24/23 08/28/23 Rx subcutaneous pen (Humalog KwikPen USEASDIRECTD #15 mL (U-100) Insulin) nitroglycerin 0.4 mg sublingual 0.4 mg sublingual Q5-15M PRN chest 04/24/23 08/28/23 Rx tablet pain #90 tabs atorvastatin 80 mg tablet (Lipitor) 80 mg PO QPM 06/02/23 08/28/23 History clopidogrel 75 mg tablet 75 mg PO QAM 06/02/23 08/28/23 History insulin glargine 100 unit/mL (3 40 unit SUBCUT [facility] 06/02/23 08/28/23 History mL) subcutaneous pen (Lantus Solostar U-100 Insulin) metformin 500 mg tablet 1,000 mg PO QAM 06/02/23 08/28/23 History diltiazem HCl 120 mg 240 mg (2 x 120 mg) PO BID #180 06/09/23 08/28/23 Rx capsule,extended release 12 hr caps metoprolol succinate 100 mg 50 mg (1/2 x 100 mg) PO BID 90 06/09/23 08/28/23 Rx tablet,extended release 24 hr days #90 tabs hydrocodone 5 mg-acetaminophen 325 1 tab PO Q4-6H PRN pain #10 tabs 06/30/23 08/28/23 Rx mg tablet Allergies Allergy/AdvReac Type Severity Reaction Status Date / Time Sulfa (Sulfonamide Allergy Mild RASH Verified 06/22/23 13:36 Antibiotics) Review of Systems Review of Systems ROS: Yes All systems reviewed with the patient and are negative except as otherwise documented Constitutional Constitutional: Reports as per HPI and Reports system reviewed and no additional complaints, except as documented Eyes Eyes: Reports as per HPI and Reports system reviewed and no additional complaints, except as documented ENT Ears, Nose, Mouth, and Throat: Yes as per HPI and Yes system reviewed and no additional complaints, except as documented Cardiovascular Cardiovascular: Reports system reviewed and no additional complaints, except as documented Respiratory Respiratory: Reports system reviewed and no additional complaints, except as documented Gastrointestinal Gastrointestinal: Reports system reviewed and no additional complaints, except as documented Genitourinary Genitourinary: Reports system reviewed and no additional complaints, except as documented Musculoskeletal Musculoskeletal: Reports system reviewed and no additional complaints, except as documented, Reports abnormal gait and Reports numbness Neurologic Neurologic: Reports system reviewed and no additional complaints, except as documented, Reports abnormal gait, Reports confusion and Reports numbness Psychiatric Psychiatric: Reports system reviewed and no additional complaints, except as documented and Reports confusion Exam Vital Signs (past 8 hours): - 08/27/23 17:47 08/27/23 18:55 08/27/23 18:57 Temperature 97.6 F Pulse Rate 56 L 61 Respiratory Rate 20 19 Blood Pressure 128/60 138/62 Pulse Oximetry 98 99 Oxygen Delivery Method Room Air Oxygen Flow Rate 08/27/23 18:57 08/27/23 19:00 08/27/23 19:30 Temperature Pulse Rate 61 59 L 62 Respiratory Rate 14 21 19 Blood Pressure Pulse Oximetry 100 99 99 Oxygen Delivery Method Room Air Room Air Oxygen Flow Rate 08/27/23 20:00 08/27/23 20:30 08/27/23 21:00 Temperature Pulse Rate 59 L 62 62 Respiratory Rate 21 22 15 Blood Pressure Pulse Oximetry 100 99 98 Oxygen Delivery Method Oxygen Flow Rate 08/27/23 21:30 08/27/23 22:00 08/27/23 22:30 Temperature Pulse Rate 65 71 78 Respiratory Rate 18 24 20 Blood Pressure Pulse Oximetry 99 99 99 Oxygen Delivery Method Oxygen Flow Rate 08/27/23 23:00 08/27/23 23:20 08/27/23 23:20 Temperature Pulse Rate 71 74 Respiratory Rate 26 H 20 Blood Pressure 124/60 Pulse Oximetry 98 98 Oxygen Delivery Method Oxygen Flow Rate 08/28/23 00:07 08/28/23 00:08 08/28/23 00:13 Temperature 96.7 F L Pulse Rate 66 Respiratory Rate 19 Blood Pressure 144/62 H Pulse Oximetry 99 99 Oxygen Delivery Method Room Air Room Air Oxygen Flow Rate 0 Oxygen Delivery Method Room Air Oxygen Flow Rate 0 Const General: cooperative, comfortable and well developed Orientation: alert and oriented x3 HENMT Head: normal to inspection, normocephalic and atraumatic Face and sinus: normal facial exam Mouth: oral mucosae normal and moist mucous membranes Throat: posterior oropharynx normal Eyes General: appearance normal, both eyes and all related structures Pupils: PERRL EOM: EOM intact bilaterally Neck Neck: normal visual inspection and full ROM Chest Chest: normal inspection of the chest Resp Effort & Inspection: normal respiratory effort and able to speak in complete sentences Auscultation: clear to auscultation bilaterally Cardio Palpation: normal PMI Rate: regular rate Rhythm: regular rhythm Heart Sounds: S1 normal and S2 normal GI Inspection: normal to inspection Palpation: soft and no hepatosplenomegaly Auscultation: normal bowel sounds Skin General: no rashes or lesions noted Lesions: no lesions Rashes: no rashes Trauma: no lacerations or abrasions Neuro General: patient alert, patient awake, patient oriented x3 and no focal motor deficits Cranial Nerves: CN's II-XI intact bilaterally Cognition: normal cognition Speech: speech normal Gait: normal gait Motor: muscle tone normal throughout Sensory Exam: no sensory deficits noted Extrem General: full ROM and no calf tenderness Psych Appearance: grossly normal Mental Status: mental status grossly normal Speech and Movement: speech and movement normal Objective Labs 08/27/23 17:40 08/27/23 17:40 Labs: Laboratory Results - last 24 hr 08/27/23 17:40 WBC 13.8 H RBC 4.09 Hgb 11.3 L Hct 34.3 L MCV 83.8 MCH 27.6 MCHC 32.9 RDW 15.3 H Plt Count 288 Neut % (Auto) 71.7 Lymph % (Auto) 19.2 L Wilkes % (Auto) 7.1 Eos % (Auto) 1.4 L Baso % (Auto) 0.6 Neut # (Auto) 9900 H Lymph # (Auto) 2700 Wilkes # (Auto) 1000 H Eos # (Auto) 200 Baso # (Auto) 100 PT 16.0 H INR 1.4 H APTT 35 Sodium 133 L Potassium 5.7 H Chloride 101 Carbon Dioxide 25 BUN 47 H Creatinine 1.59 H Estimated GFR 35 L BUN/Creatinine Ratio 29.6 H Glucose 221 H Calcium 9.4 Magnesium 1.7 Total Bilirubin 0.5 AST 17 ALT 16 Alkaline Phosphatase 61 Total Creatine Kinase 32 Troponin I < 0.012 NT-Pro-B Natriuret Pep 1240 H Total Protein 8.0 Albumin 4.1 Globulin 3.9 Albumin/Globulin Ratio 1.1 Lipase 209 Assessment & Plan Assessment and plan (1) Acute exacerbation of CHF (congestive heart failure): Qualifiers: Heart failure type: unspecified Qualified Code(s): I50.9 - Heart failure, unspecified Status: Acute Plan: Lasix 40 mg IV bid Telemetry, serial CE Low sodium diet Monitor diuresis and daily weight Restart Plavix, Lipitor, Metoprolol 50 mg bid Morphine prn and NTG prn for CP PT and OT evaluation on D/C (2) Acute kidney injury: Status: Acute Plan: Most likely due to CHF exac. -daily BMP -monitor closely abd avoid potentially nephrotoxic medications -adjust medications according GFR (3) Acute hyperkalemia: Problem details: Most likely due to KADE. No EKG changes Status: Acute Plan: -Telemetry -BMP daily (4) Atrial fibrillation: Problem details: Rate controlled Qualifiers: Atrial fibrillation type: unspecified chronic Qualified Code(s): I48.20 - Chronic atrial fibrillation, unspecified Status: Acute Plan: Restart Metoprolol, Diltiazem and Elaquis (5) Diabetes mellitus type 2, controlled, with complications: Problem details: Uncontrolled. Last A1c 7.5 Qualifiers: Diabetes mellitus [facility] insulin use: unspecified [facility] insulin use status Qualified Code(s): E11.8 - Type 2 diabetes mellitus with unspecified complications Status: Acute Plan: ADA diet, SSI, Lantus, monitor BG ACHS check A1c Hold Metformin for now (6) Essential hypertension: Status: Chronic Plan: Restart Metoprolol, Diltiazem (7) Pressure ulcer: Problem details: Deconditioning, Bedridden Qualifiers: Laterality: unspecified laterality Pressure injury location: contiguous region involving back and buttock Pressure injury stage: stage 1 Qualified Code(s): L89.41 - Pressure ulcer of contiguous site of back, buttock and hip, stage 1 Status: Acute Plan: Decubitus precaution Time Spent With Patient Time with patient: 50 to 69 minutes with 50% spent counseling/coordinating care Quality VTE Deep Vein Thrombosis/Pulmonary Embolism Present on Admission: No MIPS - Admit I confirm the patient?s Advance Care Plan is present, Code status is documented, Surrogate decision maker is in patient?s record [If Yes, STOP here]: Yes MIPS - Meds 'Current medications' to include all prescriptions, [id number] products, herbals, cannabis/cannabidiol products, and vitamin/mineral/dietary (nutritional) supplements. I have utilized all available resources to obtain, update, or review the patient?s current medications. [If Yes, STOP here]: Yes
--- NOTE | 2023-08-28 01:37 | PC.NURSE ---
Patient arrived onto the floor from the ED @ 2340 accompanied by son (Eddie). Patient is alert and oriented to self, place, situation, & year; however she is forgetful. VSS, 99% on RA, lung sounds are clear. Patient denies chest pain, nausea, SOB. 5/10 back pain that is chronic, Tylenol given. Blanchable redness noted on buttocks (wound photo uploaded) w/ small skin tear on left buttock, skin care done & Q2 turning performed. Carbajal placed in ED draining clear, yellow urine. On tele showing normal sinus rhythm. BG checked: 214. Lives at home w/ son (Eddie), neighbor visits once a day to assist w/ medications, and caregiver visits 3x/week for bathing. When inquiring about the redness on her buttocks, patient stated that she used to sit in soiled clothing for long periods of time, however she states that she has been making an effort to ambulate to the bathroom. Patient stated that she spends most of the day in the recliner and only gets up 3-4x/day to use the restroom, she states that she is normally independent w/ a walker or cane but only for short distances. Oriented patient to the room, fall precautions in place, call light within reach.
[2023-08-28 01:39] LABS: Appearance Urine UA SL CLOUDY; Bilirubin Urine UA NEGATIVE (NEGATIVE); Color Urine UA YELLOW; Glucose Urine UA NEGATIVE (Negative); Ketones Urine UA NEGATIVE (NEGATIVE); Leukocyte Esterase Urine UA 3+ (NEGATIVE); Nitrite Urine UA NEGATIVE (Negative); Occult Blood Urine UA 1+ (Negative); Protein Urine UA NEGATIVE (Negative); Urobilinogen Urine UA 0.2 E.U./dL (0.2)
[2023-08-28 01:45] LABS: Bacteria Urine Many (>30); RBC Urine 0-1/HPF (0-5/HPF); Squamous Epithelial Cell Urine 0-1 /HPF (0-5/HPF); WBC Urine >100/HPF (0-5/HPF)
[2023-08-28 01:46] LABS: Culture Indicated Urine Specimen Cultured; Transitional Epi Cells Urine 0-1/HPF (0-5/HPF)
--- NOTE | 2023-08-28 07:53 | DI.US.S_ITS ---
PROCEDURE: US RENAL COMPLETE INDICATIONS: KADE, HX NEPHROLITHIASIS TECHNIQUE: Real-time scanning was performed of the kidneys and bladder, with image documentation. COMPARISON: [facility], CT, CT ABDOMEN PELVIS W CON, 06/17/2023, 9:16. FINDINGS: Kidneys: Kidneys are normal in size. Right kidney measures 11.0 cm long; left kidney measures level 0.0 cm long. Right renal cortical thickness is 1.0 cm; left renal cortical thickness is 1.5 cm. Renal cortical echotexture is normal. No hydronephrosis. Probable bilateral stones. suspicious solid mass lesions. Visualization of the kidneys is limited by the increased BMI period Bladder: Carbajal catheter in place with completely decompressed urinary bladder. No visualization of ureteral jets. Miscellaneous: No free pelvic fluid. IMPRESSION: 1. Technically difficult study secondary to increased BMI. Normal sized kidneys with no evidence of hydronephrosis. Probable bilateral nonobstructing stones. Dictated by: Santi Kaplan M.D. on 08/28/2023 at 10:38 Approved by: Santi Kaplan M.D. on 08/28/2023 at 10:46
[2023-08-28] MEDS: dilTIAZem CD 120 MG CAP 240 MG PO ×2 (08:59→21:10)
[2023-08-28] MEDS: INSULIN LISPRO 100 UNIT/ML 3ML VIAL SUBCUT ×4 (09:03→20:58)
[2023-08-28] MEDS: METOPROLOL ER 50 MG TABLET PO ×2 (09:03→21:10)
[2023-08-28] MEDS: CLOPIDOGREL 75 MG TABLET PO (09:03)
[2023-08-28] MEDS: FUROSEMIDE 20 MG/2 ML VIAL IV (09:03)
[2023-08-28] MEDS: INSULIN GLARGINE 100 UNIT/ML 3ML PEN 40 UNIT SUBCUT (09:04)
[2023-08-28] MEDS: APIXABAN 5 MG TABLET PO ×2 (09:04→21:10)
[2023-08-28 09:32] LABS: HEMOLYSIS < 15 (0-50); NT-proBNP (BNP-Adult 18+) 1830 pg/mL (<125)
[2023-08-28 09:37] LABS: Alanine Aminotransferase 15 IU/L (<35); Albumin 3.8 g/dL (3.5-5.0); Alkaline Phosphatase 59 U/L (38-126); Aspartate Aminotransferase 24 IU/L (14-36); BUN Creatinine Ratio 37.5 (6-22); Bilirubin Total 0.4 mg/dL (0.2-1.3); Blood Urea Nitrogen 42 mg/dL (7-17); Calcium 9.6 mg/dL (8.4-10.2); Carbon Dioxide 28 mmol/L (22-32); Chloride 100 mmol/L (98-107); Estimated Glomerular Filt Rate 53 mL/min (>60); Globulin 3.7 g/dL (1.7-4.1); Glucose 166 mg/dL (80-110); Magnesium 1.7 mg/dL (1.6-2.3); Potassium 4.6 mmol/L (3.4-5.1); Sodium 135 mmol/L (137-145); Total Protein 7.5 g/dL (6.3-8.2)
--- NOTE | 2023-08-28 09:39 | PT.IIE ---
Current Diagnoses Type 2 diabetes mellitus with unspecified complications (08/27/23) Hyperkalemia (08/27/23) Essential (primary) hypertension (08/27/23) Chronic atrial fibrillation, unspecified (08/27/23) Heart failure, unspecified (08/27/23) Pressure ulcer of contiguous site of back, buttock and hip, stage 1 (08/27/23) Acute kidney failure, unspecified (08/27/23) Surgical History (Last Reviewed 06/16/23 @ 18:26 by Mickie Garibay DO) Anesthesia History of bilateral knee replacement (2009) History of colonoscopy with polypectomy (08/31/14) History of knee replacement History of knee replacement History of left cataract surgery (03/23/15) History of right cataract surgery (04/06/15) Status post delivery (12/21/78) Medical History (Last Updated 06/25/23 @ 08:03 by Marco A Aponte MD) Abnormal mammogram of left breast Breast screening Colon polyps (08/31/14) Coronary artery disease Diabetes mellitus (~2011) Hyperlipidemia Hypertension (~2011) Incontinence Knee osteoarthritis NSTEMI (non-ST elevated myocardial infarction) (09/2018) Osteopenia (05/20/14) Recent heart attack Rheumatoid arthritis Sedentary lifestyle Stage II pressure ulcer of sacral region (~02/2023) Thyroid nodule Vertigo Physical Therapy Inpatient Evaluation/Re-Eval M1 PT/OT-IP Prior Functional Status Start: 08/28/23 11:28 Freq: NEEDED Status: Active Protocol: Document 08/28/23 11:29 AB (Rec: 08/28/23 11:49 AB [id number]) Medical Review Prior Functional Status Medical History Reviewed Yes Diet/Fluid Consistency Regular Communication Able to express all needs. Mobility and Gait Pt reports she uses 4WW in the community, while at home she sometimes uses SPC. Activities of Daily Living and IADL's Pt reports being able to perform basic ADLs, but requires assistance for IADLs such as cooking, cleaning and medication management. Prior Functional Level (Other details) Pt reports a caregiver comes 3x/week to give her sponge baths. Social History Household Members children,none Living Arrangements House Number of Floors (Floors) Two Floors Number of Stairs To Enter/Railing? 2 NOMAN followed by a walk way, then 1 NOMAN into front door; no hand rails Home Environment Standard Height Toilet Home Equipment Four Wheel Walker,Straight Cane,Shower Seat without Backrest,Lift Recliner Additional Social History Comment The pt reports she lives with her son, but he works coining press operator. She has a neighbor who comes to assist her with meals and medications when he is not there. She also has HHPT who comes 2x/week. The pt states she typically sleeps in her lift recliner. M2 PT-IP Current Condition Start: 08/28/23 11:28 Freq: NEEDED Status: Active Protocol: Document 08/28/23 11:29 AB (Rec: 08/28/23 11:49 AB [id number]) Physical Therapy Current Condition Current Condition Evaluation Date 08/28/23 Treatment Diagnosis KADE, acute hyperkalemia; generalized weakness Onset Date 08/27/23 M3 PT-IP Subjective Start: 08/28/23 11:28 Freq: NEEDED Status: Active Protocol: Document 08/28/23 11:29 AB (Rec: 08/28/23 11:49 AB [id number]) Subjective Physical Therapy Visit Type Type Initial Evaluation Visit Start Time 09:00 Visit Stop Time 09:39 Total Visit Minutes 39 Physical Therapy Visit Comments Patient Comments Pt presents in bed having finished breakfast with RN dispensing meds. She is agreeable to PT eval this AM. Therapy Pain Assessment Pain When Pain Assessed At Rest Pain Present Pain Present Denied Pain M4 PT-IP Mobility and Gait Start: 08/28/23 11:28 Freq: NEEDED Status: Active Protocol: Document 08/28/23 11:29 AB (Rec: 08/28/23 11:49 AB [id number]) PT-Bed Mobility Assessment Supine to Sit Supine to Sit Moderate Assistance,1 Person Assistance,Head of Bed Elevated,Bedrails Scooting Scooting to Edge of Bed Minimal Assistance PT-Transfer Assessment Sit to and From Stand Sit to and from Stand Standby Assistance,Use of Upper Extremities Equipment Transfer Assistive Device Front Wheeled Walker Transfers Transfer Destination Chair Transfer Technique ambulated Transfer Ability Level of Assist Standby Assistance,Use of Upper Extremities Comments Mobility Comments The pt required modA x1 from PT to perform bed mobility due to weakness, however, the pt reports she typically doesn't sleep in a bed. Once sitting, she required Oliver to get LEs to touch floor. The pt then performed STS with FWW and SBA , but requires cues from PT for proper hand placement and safety. The pt then ambulated 20ft in room with FWW and SBA, with PT providing education regarding proper use of FWW. She then transferred to chair and no further mobility was performed due to weakness and fatigue. All needs were met and call light was placed within reach. RN was notified of findings. Gait Assessment Gait Gait Assistance Required: Standby Assistance Distance (Feet) 20 Assistive Devices Assistive Device Gait Belt,Front Wheeled Walker Gait Deviations General Gait Pattern Decreased Stride Length,Flexed Trunk Factors Limiting Gait Function Factors Limiting Gait Function Decreased Activity Tolerance, Decreased Strength,Poor Balance Comments Gait Comments See mobility comments. Stair Climbing Assessment Comments Stair Climbing Comments NT due to weakness and fatigue . PT-Balance Assessment Sitting Balance and Reactions Static Sitting Balance Ability Normal Dynamic Sitting Balance Ability Normal Standing Balance and Reactions Static Standing Balance Ability Good Dynamic Standing Balance Ability Fair Device Used FWW M5 PT-IP Objective Assessments Start: 08/28/23 11:28 Freq: NEEDED Status: Active Protocol: Document 08/28/23 11:29 AB (Rec: 08/28/23 11:49 AB [id number]) Orientation Orientation/Cognition Level of Alertness Alert Orientation Name,Age,Birthday,Month,Date, Year,Day of Week,Place, Situation Language Function Ability No Deficits Noted Safety Awareness Understands Safety Issues Memory Description No Deficits Noted Gross Range of Motion Upper Extremity ROM Assessment Within Functional Limits Lower Extremity ROM Assessment Within Functional Limits Strength Upper Extremity Strength Assessment Within Functional Limits Lower Extremity Strength Assessment Within Functional Limits M6 PT-IP Treatment Start: 08/28/23 11:28 Freq: NEEDED Status: Active Protocol: Document 08/28/23 11:29 AB (Rec: 08/28/23 11:49 AB [id number]) Physical Therapy Treatment Education Education Provided Safety Brace Education Patient M7 PT-IP Assessment and Plan Start: 08/28/23 11:28 Freq: NEEDED Status: Active Protocol: Document 08/28/23 11:29 AB (Rec: 08/28/23 11:49 AB [id number]) PT Summary Assessment and Plan Potential Rehabilitation Potential Good Status of Condition at Evaluation Stable Summary Impairments Pain,ROM,Strength,Balance,Bed Mobility,Transfers,Gait, Activity Tolerance Assessment Summary Anuja Parker is a 73 year old female patient presenting with generalized weakness secondary to KADE and acute hyperkalemia. Today's PT evaluation revealed she currently requires modA x1 for bed mobility, but is able to perform STS, transfers and ambulate 20ft with FWW and SBA . Of note, the pt does not sleep in bed at home, therefore this can be contributing to her difficulty performing this activity. Steps were not performed this session due to weakness and fatigue. Based on her current level of function and expected progress, PT recommends discharge to home with 24/7 assistance and home health PT to continue to improve her deficits. She would benefit from skilled PT during her hospitalization to improve to her highest level of function. Goals Bed Mobility Goal Standby Assistance Transfer Goal Independent,Front Wheeled Walker,Four Wheeled Walker Gait Goal Independent,Front Wheel Walker ,Four Wheel Walker Gait Distance 50 Other Goals Pt to perform transfer independently with LRAD to show improving functional mobility. Pt to ambulate 50ft independently with LRAD to show improving tolerance to activity in order to ambulate household distances. Pt to ascend/descend 2 steps with THEATER TECHNICIAN or LRAD to show improving LE strength in order to return to home safely. Days to Meet Goals 10 Frequency of Treatment Frequency Of Treatment Once a Day Treatment Plan Physical Therapy Treatment Plan Bed Mobility Training,Transfer Training,Gait Training, Therapeutic Exercise,Balance Retraining,Post Op Education, Discharge Planning,Hot or Cold Pack,Neuromuscular Re-ed, Coordination Retraining,Manual Therapy Recommendations To Nursing Amount of Assist Needed 1 Person Assist Discharge Recommendations PT Discharge Recommendations Home with 24/7 Assist Available,Home Health Transportation Needs at Discharge Private Vehicle,Wheelchair/ Cabulance
--- NOTE | 2023-08-28 10:34 | PM.DS.1 ---
History of Present Illness History of Present Illness Date Patient Seen: 08/28/23 Time Patient Seen: 10:34 Chief complaint: inability to take a deep breath/cough Narrative: Per admitting provider, 73 years old, female, with history of atrial fibrillation on Eliquis, diabetes mellitus type II, hypertension, hyperlipidemia, corner, artery, disease, history of thyroid, cancer, aortic valve replacement, present to the ER with increased dyspnea and chest tightness since this morning. She was recently hospitalized for medical management of appendicitis and chronic urinary incontinence and bedsores. She reports the chest pain is midsternal, aggravated by taking deep breaths. Denies any fever, populations, nausea, vomiting, abdominal pain, diarrhea, or dysuria. Reports some mild cough in the last week, and decrease exertional tolerance due to shortness of breath. Compliant to her home medications. Laboratory shows WBC 13.8, H&H, 11.3/35.3, platelets 288, INR 1.4, sodium, 133, potassium 5.7, creatinine 1.59, blood sugar 221, A1c, 7.5, LFTs, normal, troponins, 0.012, BNP 1240, lipase, 209, chest x-ray unremarkable, EKG normal sinus rhythm of 58, In the ER, she was given Lasix 40 mg IV, aspirin, 325 mg PO, insulin 5 units sub Q and Carbajal catheter was placed. Vital signs shows temperature 97.6, heart rate 65, blood pressure 138/62, oxygen situation, 99% on room air. Discharge Providers Provider Date of admission: 08/27/23 22:54 Discharge Date: 08/28/23 Primary care physician: Chino Ruggiero MD Consults: 08/27/23 22:55 Consult to Discharge Planning Routine Comment: Consult to Occupational Therapy Evaluate & Treat Comment: Physician Instructions: Evaluate and treat Consult to Physical Therapy Evaluate & Treat Comment: Physician Instructions: Evaluate and Treat Discharge provider: Dave Lua DO Summary Hospital Course Discharge Diagnosis: (1) Acute exacerbation of CHF (congestive heart failure): Qualifiers: Heart failure type: unspecified Qualified Code(s): I50.9 - Heart failure, unspecified Status: Acute Plan: Lasix 40 mg IV bid Telemetry, serial CE Low sodium diet Monitor diuresis and daily weight Restart Plavix, Lipitor, Metoprolol 50 mg bid Morphine prn and NTG prn for CP PT and OT evaluation on D/C (2) Acute kidney injury: Status: Acute Plan: Most likely due to CHF exac. -daily BMP -monitor closely abd avoid potentially nephrotoxic medications -adjust medications according GFR (3) Acute hyperkalemia: Problem details: Most likely due to KADE. No EKG changes Status: Acute Plan: -Telemetry -BMP daily (4) Atrial fibrillation: Problem details: Rate controlled Qualifiers: Atrial fibrillation type: unspecified chronic Qualified Code(s): I48.20 - Chronic atrial fibrillation, unspecified Status: Acute Plan: Restart Metoprolol, Diltiazem and Elaquis (5) Diabetes mellitus type 2, controlled, with complications: Problem details: Uncontrolled. Last A1c 7.5 Qualifiers: Diabetes mellitus correction insulin use: unspecified correction insulin use status Qualified Code(s): E11.8 - Type 2 diabetes mellitus with unspecified complications Status: Acute Plan: ADA diet, SSI, Lantus, monitor BG ACHS check A1c Hold Metformin for now (6) Essential hypertension: Status: Chronic Plan: Restart Metoprolol, Diltiazem (7) Pressure ulcer: Problem details: Exam Vital Signs (past 8 hours): - 08/28/23 04:00 08/28/23 05:19 08/28/23 05:46 Temperature 96.7 F L Pulse Rate 69 Respiratory Rate 19 Blood Pressure 118/46 L Pulse Oximetry 99 99 Oxygen Delivery Method Room Air Oxygen Flow Rate 0 08/28/23 08:00 08/28/23 09:00 08/28/23 09:03 Temperature 96.9 F L Pulse Rate 66 66 Respiratory Rate 18 Blood Pressure 114/42 L 114/42 L Pulse Oximetry 97 97 Oxygen Delivery Method Room Air Oxygen Flow Rate 0 0 Oxygen Delivery Method Room Air Oxygen Flow Rate 0 Objective Labs 08/27/23 17:40 08/28/23 08:26 Labs: Laboratory Results - last 24 hr 08/27/23 08/28/23 08/28/23 17:40 01:30 08:26 WBC 13.8 H RBC 4.09 Hgb 11.3 L Hct 34.3 L MCV 83.8 MCH 27.6 MCHC 32.9 RDW 15.3 H Plt Count 288 Neut % (Auto) 71.7 Lymph % (Auto) 19.2 L [place] % (Auto) 7.1 Eos % (Auto) 1.4 L Baso % (Auto) 0.6 Neut # (Auto) 9900 H Lymph # (Auto) 2700 [place] # (Auto) 1000 H Eos # (Auto) 200 Baso # (Auto) 100 PT 16.0 H INR 1.4 H APTT 35 Sodium 133 L 135 L Potassium 5.7 H 4.6 Chloride 101 100 Carbon Dioxide 25 28 BUN 47 H 42 H Creatinine 1.59 H 1.12 H Estimated GFR 35 L 53 L BUN/Creatinine Ratio 29.6 H 37.5 H Glucose 221 H 166 H Calcium 9.4 9.6 Magnesium 1.7 1.7 Total Bilirubin 0.5 0.4 AST 17 24 ALT 16 15 Alkaline Phosphatase 61 59 Total Creatine Kinase 32 Troponin I < 0.012 NT-Pro-B Natriuret Pep 1240 H 1830 H Total Protein 8.0 7.5 Albumin 4.1 3.8 Globulin 3.9 3.7 Albumin/Globulin Ratio 1.1 1.0 Lipase 209 Urine Color Yellow Urine Appearance Sl cloudy Urine pH 5.0 Ur Specific [place] 1.010 Urine Protein Negative Urine Glucose (UA) Negative Urine Ketones Negative Urine Occult Blood 1+ H Urine Nitrate Negative Urine Bilirubin Negative Urine Urobilinogen 0.2 Ur Leukocyte Esterase 3+ H Urine RBC 0-1/hpf Urine WBC >100/hpf H Ur Squamous Epith Cells 0-1 /hpf Ur Transition Epith Cell 0-1/hpf Urine Bacteria Many (>30) H Ur Culture Indicated? Specimen cultured [facility] Medical History (Updated 08/28/23 @ 01:21 by Romeo Meza MD) Vertigo Sedentary lifestyle Stage II pressure ulcer of sacral region (~02/2023) Hyperlipidemia Thyroid nodule Incontinence Breast screening Abnormal mammogram of left breast NSTEMI (non-ST elevated myocardial infarction) (09/2018) Recent heart attack Coronary artery disease Osteopenia (05/20/14) Knee osteoarthritis Hypertension (~2011) Diabetes mellitus (~2011) Rheumatoid arthritis Colon polyps (08/31/14) Surgical History History of bilateral knee replacement (2009) History of colonoscopy with polypectomy (08/31/14) History of left cataract surgery (03/23/15) History of right cataract surgery (04/06/15) Anesthesia History of knee replacement History of knee replacement Status post delivery (12/21/78) Family History Brother Drowning Father Heart disease Mother Diabetes mellitus Sister Bone cancer Sister Bone cancer Social History marital status: household members: children and none Smoking Status: Never smoker alcohol intake: current substance use type: does not use Discharge Plan Discharge Plan Patient Disposition: Home Discharge orders & Medications Prescriptions: No Action (DME) pen needle, diabetic [Comfort EZ Pen [place]] 29 gauge x 1/2 needle See Rx Instructions .ROUTE .MEDSUPPLY Qty: 100 3RF Rx Instructions: use to check blood glucose 3x per day (DME) True Metrix Glucose Test Strip Strip See Rx Instructions .ROUTE .COMPLEX Qty: 100 3RF Dose Instruction: USE TO TEST BLOOD SUGAR DAILY Rx Instructions: USE TO TEST BLOOD SUGAR DAILY Eliquis 5 mg tablet 5 mg PO BID Qty: 180 2RF (DME) Parking Permit... See Rx Instructions .Route .MEDSUPPLY Qty: 1 0RF Rx Instructions: Patient meets criteria for permanent parking placard. insulin lispro [Humalog KwikPen Insulin] 100 unit/mL insulin pen 1 sliding scale dose SUBCUT USEASDIRECTD Qty: 15 3RF Rx Instructions: slide scale 2-14 units SQ TID nitroglycerin 0.4 mg tablet, sublingual 0.4 mg SL Q5-15M PRN (Reason: chest pain) Qty: 90 11RF Patient Comments: patient has prescription but has not taken yet Rx Instructions: until response; do not exceed 3 doses per episode metformin 500 mg tablet 1,000 mg PO QAM Rx Instructions: TAKE TWO TABLETS BY MOUTH TWICE DAILY atorvastatin [Lipitor] 80 mg tablet 80 mg PO QPM insulin glargine [Lantus Solostar U-100 Insulin] 100 unit/mL (3 mL) insulin pen 40 unit SUBCUT QAM Patient Comments: pt states that she takes Lantus in the morning instead of nighttime. clopidogrel 75 mg tablet 75 mg PO QAM diltiazem HCl 120 mg capsule,extended release 12 hr 240 mg PO BID Qty: 180 0RF metoprolol succinate 100 mg tablet extended release 24 hr 50 mg PO BID 90 Days Qty: 90 0RF hydrocodone-acetaminophen 5-325 mg tablet 1 tab PO Q4-6H PRN (Reason: pain) Qty: 10 0RF Follow up/Referrals: Chino Ruggiero MD [Primary Care Provider] - Visit Report/Discharge Packet Stand Alone Forms: Patient Portal/API, Stroke Signs & Symptoms Discharge Data Primary Care Provider: Chino Ruggiero Attending Provider: Romeo Meza Admit Date/Time: 08/27/23 22:54 Quality VTE Deep Vein Thrombosis/Pulmonary Embolism Present on Admission: No
[2023-08-28] MEDS: cefTRIAXone 1,000 MG in SODIUM CHLORIDE 0.9% 100 ML 200 MG IV (12:14)
--- NOTE | 2023-08-28 13:49 | OT.IP.EVAL ---
Current Diagnoses Type 2 diabetes mellitus with unspecified complications (08/27/23) Hyperkalemia (08/27/23) Essential (primary) hypertension (08/27/23) Chronic atrial fibrillation, unspecified (08/27/23) Heart failure, unspecified (08/27/23) Pressure ulcer of contiguous site of back, buttock and hip, stage 1 (08/27/23) Acute kidney failure, unspecified (08/27/23) Past Medical History (Last Updated 06/25/23 @ 08:03 by Marco A Aponte MD) Abnormal mammogram of left breast Breast screening Colon polyps (08/31/14) Coronary artery disease Diabetes mellitus (~2011) Hyperlipidemia Hypertension (~2011) Incontinence Knee osteoarthritis NSTEMI (non-ST elevated myocardial infarction) (09/2018) Osteopenia (05/20/14) Recent heart attack Rheumatoid arthritis Sedentary lifestyle Stage II pressure ulcer of sacral region (~02/2023) Thyroid nodule Vertigo Surgical History (Last Reviewed 06/16/23 @ 18:26 by Mickie Garibay DO) Anesthesia History of bilateral knee replacement (2009) History of colonoscopy with polypectomy (08/31/14) History of knee replacement History of knee replacement History of left cataract surgery (03/23/15) History of right cataract surgery (04/06/15) Status post delivery (12/21/78) Occupational Therapy Inpatient Evaluation/Re-Eval M1 PT/OT-IP Prior Functional Status Start: 08/28/23 11:28 Freq: NEEDED Status: Active Protocol: M1 PT/OT-IP Prior Functional Status Start: 08/28/23 13:55 Freq: NEEDED Status: Active Protocol: Document 08/28/23 13:05 [facility] (Rec: 08/28/23 14:19 [facility] [id number]) Medical Review Prior Functional Status Medical History Reviewed Yes Diet/Fluid Consistency Regular Communication Able to express all needs. Mobility and Gait Pt reports she uses 4WW in the community, while at home she sometimes uses SPC. Activities of Daily Living and IADL's Pt reports being able to perform basic ADLs, but requires assistance for IADLs such as cooking, cleaning and medication management. Pt has Meals on Wheels. Prior Functional Level (Other details) Pt reports a caregiver comes 3x/week to give her sponge baths. Social History Household Members children,none Living Arrangements House Number of Floors (Floors) Two Floors Number of Stairs To Enter/Railing? 2 NOMAN followed by a walk way, then 1 NOMAN into front door; no hand rails Home Environment Standard Height Toilet Home Equipment Four Wheel Walker,Straight Cane,Shower Seat without Backrest,Lift Recliner Additional Social History Comment The pt reports she lives with her son, but he works daytime babysitter. She has a neighbor who comes to assist her with meals and medications when he is not there. She also has HHPT who comes 2x/week. The pt states she typically sleeps in her lift recliner. M2 OT-IP Current Condition Start: 08/28/23 13:55 Freq: Status: Active Protocol: Document 08/28/23 13:05 [facility] (Rec: 08/28/23 14:19 [facility] [id number]) Occupational Therapy Current Condition Current Condition Evaluation Date 08/28/23 Treatment Diagnosis Acute CHF exacerbation Diagnosis Onset Date 08/27/23 M3 OT- IP Subjective and Pain Start: 08/28/23 13:55 Freq: Status: Active Protocol: Document 08/28/23 13:05 [facility] (Rec: 08/28/23 14:19 [facility] [id number]) OT- Subjective Occupational Therapy Visit Type Type Initial Evaluation Visit Start Time 13:05 Visit Stop Time 13:49 Total Visit Minutes 44 Occupational Therapy Visit Comments Patient Comments Pt agreed to get dressed as ready to go home. Patient/Caregiver Goals TO go home. OT Pain Assessment Pain When Pain Assessed At Rest Pain Present Pain Present Pain Reported Location Neck Intensity 7 Scale Used Numeric (0 - 10) M4 OT- IP ADL's Start: 08/28/23 13:55 Freq: Status: Active Protocol: Document 08/28/23 13:05 [facility] (Rec: 08/28/23 14:19 [facility] [id number]) OT [id number] Comments OT Self-Feeding Comments Not at meal time. OT ADL-Grooming General Evaluation Grooming Ability Independent Areas Needing Assistance Retrieving/Set-up of Grooming Items Comments OT Grooming Comments Able to do while seated. OT ADL-Oral Care General Eval Oral Care Ability Independent Areas of Assistance Retrieving/Set-Up of Items Comments Oral Care Comments Able to do while seated. OT ADL-Dressing General Eval Upper Body Dressing Ability Independent Lower Body Dressing Ability Minimal Assistance Comments OT Dressing Comments ANTHONY to help get clothing over her feet. Suggested pt get a production shift supervisor to assist with her LB dressing needs. OT ADL-Toileting Comments OT Toileting Comments SBA for safety, pt needing assist to get brief over her feet and educated pt of use of the production shift supervisor. OT ADL-Bathing Comments OT Bathing Comments Pt states has assist for sponge bathing from home health aid. M5 OT- IP IADL's Start: 08/28/23 13:55 Freq: Status: Active Protocol: Document 08/28/23 13:05 [facility] (Rec: 08/28/23 14:19 [facility] [id number]) OT-Instrumental Activities of Daily Living Deficits IADL Deficits Identified Deficits Home Safety Awareness Awareness of Need for Assistance at Home Good Awareness Home Safety Comments Pt able to answer basic home safety questions. Pt is aware that she is not able to do her hygiene needs well but does not want to ask her son and grandson to assist. Medication Management Medication Management Caregiver Administers Money Management Money Management Caregiver Provides Assistance Meal Preparation Meal Preparation Caregiver Provides Assist Meal Preparation Comments Pt has Meals on Wheels which is brought to her in the house . Industrial Engineering Technician Industrial Engineering Technician Caregiver Provides Assist Driving Driving Caregiver Provides Assist M6 OT- IP Functional Cognition Start: 08/28/23 13:55 Freq: Status: Active Protocol: Document 08/28/23 13:05 [facility] (Rec: 08/28/23 14:19 [facility] [id number]) Cognitive Factors Limiting Selfcare Function Cognitive Ability Level of Alertness Alert Patient Orientation Name,Place,Situation Attention Span Ability Capable of Focused Attention, Capable of Sustained Attention Ability to Follow Commands Able to Follow One Step Commands Memory Description Short Term Impaired Safety Awareness Underestimates Need for Assistance Problem Solving Ability Needs Assist to Identify Solutions Cognitive Comments Cognitive Assessment Comments Pt needing cues for safety for vc to sit down as feeling woozy and lightheaded. Pt vc to use as device especially when not feeling well. Pt states feels woozy at home at time a has had near fall but able to sit herself down per pt. Pt is a bit forgetful and needing reminders for safety. Not sure if this is her baseline for cognition and may benefit from cognitive assessment. OT- Vision and Hearing OT- Hearing Assessment OT- Hearing Assessment WFL OT- Vision Assessment Visual Acuity Glasses All The Time M7 OT- IP Mobility and Balance Start: 08/28/23 13:55 Freq: Status: Active Protocol: Document 08/28/23 13:05 [facility] (Rec: 08/28/23 14:19 [facility] [id number]) OT-Transfer Assessment Sit to and From Stand Sit to and from Stand Standby Assistance,Contact Guard Assistance Transfers Transfer Ability Standby Assistance,Contact Guard Assistance Technique Transfer Destination Chair,Toilet Transfer Technique Stand Step Pivot Devices Transfer Assistive Devices None,Gait Belt,4 Wheeled Walker Comments Mobility Comments Pt initially SBA without a device to get into the bathroom. After getting up pt feeling woozy and lightheaded and complaining of neck pain 04/23 BP sitting 129/39 and standing dropped to 84/61- nursing notified. Pt states has been feeling woozy on and off for the past 3 days. OT- Balance Assessment Sitting Balance and Reactions Static Sitting Balance Ability Good Dynamic Sitting Balance Ability Good Standing Balance and Reactions Static Standing Balance Ability Good Dynamic Standing Balance Ability Fair Comments Other Balance Tests/Deviations/Treatment Pt tends to get unsteady when : her BP drops and needing cues to sit down. Pt if going home will greatly benefit from use of 4ww inside so able to sit down if not feeling well. M8 OT- IP Objective Assessments Start: 08/28/23 13:55 Freq: Status: Active Protocol: Document 08/28/23 13:05 [facility] (Rec: 08/28/23 14:19 [facility] [id number]) OT Gross Range of Motion Upper Extremity Range of Motion ROM Impairments grossly WFL. OT Strength Comments Strength Comments BUE 5/5 OT- Coordination Assessment Upper Extremity Finger to Nose Test Within Functional Limits M9 OT- IP Assessment and Plan Start: 08/28/23 13:55 Freq: Status: Active Protocol: Document 08/28/23 13:05 [facility] (Rec: 08/28/23 14:19 [facility] [id number]) OT Summary Assessment and Plan Potential Rehabilitation Potential Good Analytic Complexity at Evaluation Moderate Summary OT Impairments Pain,Balance,Functional Mobility,Grooming,Dressing, Toileting,Toilet Transfers, Activity Tolerance Progress Towards Goals Slow Progress due to Pain,Slow Progress due to Medical Issues,Slow Progress due to Activity Tolerance Assessment Summary Pt here due to CHF exacerbation and main barriers are steps, decreased activity tolerance, and will benefit from some assist especially for toileting and dressing needs. Able to show pt LB dressing equipment and suggested use of bidet or toilet paper aid for the pt. When medically stable pt will benefit from home health and 24/7 available assist initially. Goals Grooming Goal Independent Dressing Goal Independent Toileting Goal Independent Toilet Transfer Goal Independent Days to Meet Goals 5 Frequency of Treatment Frequency Of Treatment Once a Day Treatment Plan OT Treatment Plan ADL Training,Functional Mobility,Patient/Family Education,Discharge Planning Other Treatment Recommendations and Next cognitive assessment Treatment Focus Discharge Recommendations OT Discharge Recommendations Home with 24/7 Assist Available,Home Health Home Equipment Needs LB dressing equipment, bidet/ toilet paper aid Transportation Needs at Discharge Private Vehicle
--- NOTE | 2023-08-28 14:18 | PC.NURSE ---
Pt worked with OT and became orthostatic and symptomatic. Sitting- 129/39 standing-84/61. Informed Dr. Lua and holding discharge until am. Patient back in bed. Call light in reach. Bed alarm active.
--- NOTE | 2023-08-28 15:56 | CM.DANOTE ---
Reviewed EMR for pt's medical status and anticipated d/c needs. Pt was working with OT at time of this assessment, spoke with sonEddie by phone to identifiy home d/c needs. HH recommended by PT/OT rosalinda. Choices provided for HH agencies, son is choosing [facility] . Faxed clinicals, they will f/u with son to continue coordination of intake. Pt discharged today, son transported home. No further DCP needs identified at this time. Discharge Planning/Care Management Advanced directive, confirm from FAMILY Start: 08/28/23 00:24 Freq: Q24H Status: Active Protocol: Document 08/28/23 00:24 CM (Rec: 08/28/23 00:43 CM [id number]) Advance Directive, confirm on record Time 00:43 Person contacted Eddie (son) Copy received No CM Discharge Assessment Start: 08/28/23 15:49 Freq: Status: Active Protocol: Document 08/28/23 15:49 [facility] (Rec: 08/28/23 15:56 [facility] [id number]) Discharge Planning Assessment Assigned Flower Stripper SAYRA Bird Advance Directives? Yes Advance Directives on File No History Provided By Family Member,Medical Record Has Patient been admitted in last 30 No days? Prior Living Arrangements House Household Members children,none Type of transporation used prior to Relies on Others admit Independent with ADL's Yes: Requires assistane with IADL's Is patient alert and oriented? Yes Needs Assistance With Bathing,Managing Medications, Home Chores / Shopping Comment Pt has a cg that comes 3x per week for sponge bath. Caregiver for Another No DME Already Rented / Owned FWW / Walker,Cane Patient/Family Preference Home with Home Health Comment Clinicals faxed to [facility] for review. Pending acceptance. F /F completed. Barriers to Discharge No Discharge Plan Home with Home Health Transportation Arrangement Likely naun Morgan at d/c Referrals Initiated Home Health Additional Comment New referral [facility], hopefully will qualify for HA If patient plan is home with home health Yes : Has signed face to face form been completed? Medicare Choice List Provided Yes Medicare choice list reviewed on family electronic tablet with SNF/HH Preference [facility] Whiteboard Updated in Patient Room with Yes name and ext. # of Flower Stripper Review Status In Process Please Provide Date Initial DC 08/28/23 Assessment Was Performed
--- NOTE | 2023-08-28 16:00 | PM.PN.1 ---
Subjective Subjective Interval history: 73 F admitted overnight over concern for shortness of breath. She was not hypoxic. Admitted for diastolic heart failure exacerbation, diuresed overnight and had improvement in symptoms, but this afternoon became orthostatic and dizziness with difficulty ambulating. Discharge was cancelled. She was likely over-diuresed. Hold on additional fluids and encouraged PO intake, will continue to monitor. Exam Vital Signs (past 8 hours): - 08/28/23 09:00 08/28/23 09:03 08/28/23 12:00 Temperature 96.9 F L Pulse Rate 66 66 Respiratory Rate 18 Blood Pressure 114/42 L 114/42 L Pulse Oximetry 97 96 Oxygen Delivery Method Room Air Oxygen Flow Rate 0 0 08/28/23 12:00 Temperature 97.4 F L Pulse Rate 65 Respiratory Rate 17 Blood Pressure 129/61 Pulse Oximetry 98 Oxygen Delivery Method Oxygen Flow Rate 0 Oxygen Delivery Method Room Air Oxygen Flow Rate 0 Const General: cooperative, comfortable and well developed Orientation: alert and oriented x3 HENMT Head: normal to inspection, normocephalic and atraumatic Face and sinus: normal facial exam Mouth: oral mucosae normal and moist mucous membranes Throat: posterior oropharynx normal Eyes General: appearance normal, both eyes and all related structures Pupils: PERRL EOM: EOM intact bilaterally Neck Neck: normal visual inspection and full ROM Chest Chest: normal inspection of the chest Resp Effort & Inspection: normal respiratory effort and able to speak in complete sentences Auscultation: clear to auscultation bilaterally Cardio Palpation: normal PMI Rate: regular rate Rhythm: regular rhythm Heart Sounds: S1 normal and S2 normal GI Inspection: normal to inspection Palpation: soft and no hepatosplenomegaly Auscultation: normal bowel sounds Skin General: no rashes or lesions noted Lesions: no lesions Rashes: no rashes Trauma: no lacerations or abrasions Neuro General: patient alert, patient awake, patient oriented x3 and no focal motor deficits Cranial Nerves: CN's II-XI intact bilaterally Cognition: normal cognition Speech: speech normal Gait: normal gait Motor: muscle tone normal throughout Sensory Exam: no sensory deficits noted Extrem General: full ROM and no calf tenderness Psych Appearance: grossly normal Mental Status: mental status grossly normal Speech and Movement: speech and movement normal Objective Labs 08/27/23 17:40 08/28/23 08:26 Labs: Laboratory Results - last 24 hr 08/27/23 08/28/23 08/28/23 17:40 01:30 08:26 WBC 13.8 H RBC 4.09 Hgb 11.3 L Hct 34.3 L MCV 83.8 MCH 27.6 MCHC 32.9 RDW 15.3 H Plt Count 288 Neut % (Auto) 71.7 Lymph % (Auto) 19.2 L [place] % (Auto) 7.1 Eos % (Auto) 1.4 L Baso % (Auto) 0.6 Neut # (Auto) 9900 H Lymph # (Auto) 2700 [place] # (Auto) 1000 H Eos # (Auto) 200 Baso # (Auto) 100 PT 16.0 H INR 1.4 H APTT 35 Sodium 133 L 135 L Potassium 5.7 H 4.6 Chloride 101 100 Carbon Dioxide 25 28 BUN 47 H 42 H Creatinine 1.59 H 1.12 H Estimated GFR 35 L 53 L BUN/Creatinine Ratio 29.6 H 37.5 H Glucose 221 H 166 H Calcium 9.4 9.6 Magnesium 1.7 1.7 Total Bilirubin 0.5 0.4 AST 17 24 ALT 16 15 Alkaline Phosphatase 61 59 Total Creatine Kinase 32 Troponin I < 0.012 NT-Pro-B Natriuret Pep 1240 H 1830 H Total Protein 8.0 7.5 Albumin 4.1 3.8 Globulin 3.9 3.7 Albumin/Globulin Ratio 1.1 1.0 Lipase 209 Urine Color Yellow Urine Appearance Sl cloudy Urine pH 5.0 Ur Specific [place] 1.010 Urine Protein Negative Urine Glucose (UA) Negative Urine Ketones Negative Urine Occult Blood 1+ H Urine Nitrate Negative Urine Bilirubin Negative Urine Urobilinogen 0.2 Ur Leukocyte Esterase 3+ H Urine RBC 0-1/hpf Urine WBC >100/hpf H Ur Squamous Epith Cells 0-1 /hpf Ur Transition Epith Cell 0-1/hpf Urine Bacteria Many (>30) H Ur Culture Indicated? Specimen cultured [facility] Medical History (Updated 08/28/23 @ 01:21 by Romeo Meza MD) Vertigo Sedentary lifestyle Stage II pressure ulcer of sacral region (~02/2023) Hyperlipidemia Thyroid nodule Incontinence Breast screening Abnormal mammogram of left breast NSTEMI (non-ST elevated myocardial infarction) (09/2018) Recent heart attack Coronary artery disease Osteopenia (05/20/14) Knee osteoarthritis Hypertension (~2011) Diabetes mellitus (~2011) Rheumatoid arthritis Colon polyps (08/31/14) Surgical History History of bilateral knee replacement (2009) History of colonoscopy with polypectomy (08/31/14) History of left cataract surgery (03/23/15) History of right cataract surgery (04/06/15) Anesthesia History of knee replacement History of knee replacement Status post delivery (12/21/78) Family History Brother Drowning Father Heart disease Mother Diabetes mellitus Sister Bone cancer Sister Bone cancer Social History marital status: household members: children and none Smoking Status: Never smoker alcohol intake: current substance use type: does not use Assessment & Plan Assessment & Plan narrative: (1) acute on chronic diastolic heart failure - patient was not hypoxic on admission, improved with diuresis initially but now likely over diuresed this afternoon - hold further diuretics for now. - PT/OT ordered. (2) Acute kidney injury: - likely due to above volume overload, improved with diuresis today. Continue to follow with BMP, may bump again due to volume overload. (3) Acute hyperkalemia: Most likely due to KADE. No EKG changes. Improved with diuretic. (4) Chronic Atrial fibrillation: continue home dilt, metoprolol and eliquis. (5) Diabetes mellitus type 2, controlled, with complications: ADA diet, SSI, Lantus, monitor BG ACHS Hold Metformin for now (6) Essential hypertension: Status: Chronic Plan: Restart Metoprolol, Diltiazem (7) Pressure ulcer: Problem details: Deconditioning, Bedridden Qualifiers: Laterality: unspecified laterality Pressure injury location: contiguous region involving back and buttock Pressure injury stage: stage 1 Qualified Code(s): L89.41 - Pressure ulcer of contiguous site of back, buttock and hip, stage 1 Status: Acute Plan: Decubitus precautions Code: Full, surrogate is son Dispo: was discharged, but cancelled due to development of severe orthostasis prior to home, likely due to overdiuresis. If orthostasis improves can hopefully discharge home tomorrow. Quality VTE Deep Vein Thrombosis/Pulmonary Embolism Present on Admission: No
[2023-08-28] MEDS: ATORVASTATIN 20 MG TABLET 80 MG PO (17:10)
[2023-08-29] VITALS (14 sets, daily range): BP systolic 92–135; BP diastolic 49–73; PULSE 55–69; RESP 17–20; TEMP 36–37.2; O2SAT 96–99
[2023-08-29] MEDS: APIXABAN 5 MG TABLET PO ×2 (08:13→20:39)
[2023-08-29] MEDS: CLOPIDOGREL 75 MG TABLET PO (08:13)
[2023-08-29] MEDS: INSULIN LISPRO 100 UNIT/ML 3ML VIAL SUBCUT ×4 (08:14→20:38)
[2023-08-29] MEDS: INSULIN GLARGINE 100 UNIT/ML 3ML PEN 40 UNIT SUBCUT (08:16)
[2023-08-29] MEDS: SODIUM CHLORIDE 0.9% FLUSH 10 ML IV ×2 (08:16→20:45)
[2023-08-29 08:51] LABS: Alanine Aminotransferase 16 IU/L (<35); Albumin 3.8 g/dL (3.5-5.0); Alkaline Phosphatase 60 U/L (38-126); Aspartate Aminotransferase 18 IU/L (14-36); BUN Creatinine Ratio 40.5 (6-22); Bilirubin Total 0.5 mg/dL (0.2-1.3); Blood Urea Nitrogen 47 mg/dL (7-17); Calcium 9.5 mg/dL (8.4-10.2); Carbon Dioxide 27 mmol/L (22-32); Chloride 99 mmol/L (98-107); Estimated Glomerular Filt Rate 50 mL/min (>60); Globulin 3.8 g/dL (1.7-4.1); Glucose 202 mg/dL (80-110); HEMOLYSIS < 15 (0-50); Potassium 4.6 mmol/L (3.4-5.1); Sodium 135 mmol/L (137-145); Total Protein 7.6 g/dL (6.3-8.2)
[2023-08-29 08:58] LABS: NT-proBNP (BNP-Adult 18+) 891 pg/mL (<125)
[2023-08-29] MEDS: SODIUM CHLORIDE 0.9% 500 ML 1000 ML IV (09:56)
--- NOTE | 2023-08-29 13:04 | PT.IPTN ---
Current Diagnoses Type 2 diabetes mellitus with unspecified complications (08/29/23) Hyperkalemia (08/29/23) Essential (primary) hypertension (08/29/23) Chronic atrial fibrillation, unspecified (08/29/23) Heart failure, unspecified (08/29/23) Pressure ulcer of contiguous site of back, buttock and hip, stage 1 (08/29/23) Acute kidney failure, unspecified (08/29/23) Physical Therapy Treatment Note M2 PT-IP Current Condition Start: 08/28/23 11:28 Freq: NEEDED Status: Active Protocol: Document 08/29/23 12:30 SP (Rec: 08/29/23 16:21 SP [id number]) Physical Therapy Current Condition Current Condition Evaluation Date 08/28/23 Treatment Diagnosis KADE, acute hyperkalemia; generalized weakness Onset Date 08/27/23 M3 PT-IP Subjective Start: 08/28/23 11:28 Freq: NEEDED Status: Active Protocol: Document 08/29/23 12:30 SP (Rec: 08/29/23 16:21 SP [id number]) Subjective Physical Therapy Visit Type Type Treatment Note Visit Start Time 12:30 Visit Stop Time 13:04 Total Visit Minutes 34 Notes Vitals: seated: RUE automated BP: 106/ 46 HR 60 SaO2 98% on RA. seated post mobility: BP: 114/ 48 HR 62, noted SOB at times and reports slight light headed and nausea post stairs, unable take vitals at time. Number of YEAST STACKER Visits 1 Physical Therapy Visit Comments Patient Comments Pt up in chair, just finished lunch. She stated the carbination in [employer] is helping settle her stomach. Patient Goals Pt agreeable to SNF end to tx, for progression strength before returning home knowing doesn't have 24/7 assist at home. Therapy Pain Assessment Pain When Pain Assessed During Mobility Pain Present Pain Present Denied Pain M4 PT-IP Mobility and Gait Start: 08/28/23 11:28 Freq: NEEDED Status: Active Protocol: Document 08/29/23 12:30 SP (Rec: 08/29/23 16:21 SP [id number]) PT-Bed Mobility Assessment Sit to Supine Sit to Supine Moderate Assistance,1 Person Assistance,Bedrails PT-Transfer Assessment Sit to and From Stand Sit to and from Stand Standby Assistance,Contact Guard Assistance,Use of Upper Extremities Equipment Transfer Assistive Device Gait Belt,Front Wheeled Walker Transfers Transfer Destination Chair,Wheelchair Transfer Technique pt ambulated c/FWW Transfer Ability Level of Assist Standby Assistance,Contact Guard Assistance,Use of Upper Extremities Comments Mobility Comments Pt up in chair when arrived, agreeable to progression gait and stair mgt if able. Redirection cues for push from chair come to stand, upright posturing, proximity to FWW, and decrease pacing gait approx 50 ft before needed to sit in trailing w/c CG/SBA by YEAST STACKER. Pt required CG-10%A ascend and 20%A descend A during stair mgt heavily BUE on rails due to decrease strength (pt doesn't have rails home can use). Pt needed brief stand rest bottom step these steps are not easy and I am getting tired and nausous . Pt returned to chair c/FWW, wheeled back to room. SPT w/c >bed CGA /c FWW. Cues for back up fully and reach back slow descend sit on EOB. Pt requires Mod A for BLE support into bed, Mod A for support lateral scoot via transfer pad center self in bed. Pt reports isn't as strong as thought and son isn't at home all the time and know caregiver doesn't give her physical support before. Pt had call light and all needs in reach, bed alarmed due to fall risk. Gait Assessment Gait Gait Assistance Required: Standby Assistance,Contact Guard Assist Distance (Feet) 50 Assistive Devices Assistive Device Gait Belt,Front Wheeled Walker Gait Deviations General Gait Pattern Decreased Stride Length,Flexed Trunk Factors Limiting Gait Function Factors Limiting Gait Function Decreased Activity Tolerance, Decreased Strength,Poor Balance,Poor Safety Awareness, Respiratory Distress Comments Gait Comments see mobility comments Stair Climbing Assessment Evaluation Level of Assist On Stairs Contact Guard Assistance, Minimal Assistance,1 Person Assistance Devices Stair Climbing Assistive Devices Left Railing,Right Railing Technique/Endurance Stair Climbing Direction Ascend and Descend Stair Climbing Technique Step to Step Number of Steps Climbed 3 Stair Climbing Set # Repetitions (reps) 1 Comments Stair Climbing Comments see mobility comments PT-Balance Assessment Sitting Balance and Reactions Static Sitting Balance Ability Good Dynamic Sitting Balance Ability Fair Standing Balance and Reactions Static Standing Balance Ability Good Dynamic Standing Balance Ability Fair Device Used FWW M5 PT-IP Objective Assessments Start: 08/28/23 11:28 Freq: NEEDED Status: Active Protocol: Document 08/28/23 11:29 AB (Rec: 08/28/23 11:49 AB [id number]) Orientation Orientation/Cognition Level of Alertness Alert Orientation Name,Age,Birthday,Month,Date, Year,Day of Week,Place, Situation Language Function Ability No Deficits Noted Safety Awareness Understands Safety Issues Memory Description No Deficits Noted Gross Range of Motion Upper Extremity ROM Assessment Within Functional Limits Lower Extremity ROM Assessment Within Functional Limits Strength Upper Extremity Strength Assessment Within Functional Limits Lower Extremity Strength Assessment Within Functional Limits M6 PT-IP Treatment Start: 08/28/23 11:28 Freq: NEEDED Status: Active Protocol: Document 08/29/23 12:30 SP (Rec: 08/29/23 16:21 SP [id number]) Physical Therapy Treatment Education Education Provided Safety Brace Education Patient M7 PT-IP Assessment and Plan Start: 08/28/23 11:28 Freq: NEEDED Status: Active Protocol: Document 08/29/23 12:30 SP (Rec: 08/29/23 16:21 SP [id number]) PT Summary Assessment and Plan Potential Rehabilitation Potential Good Status of Condition at Evaluation Stable Summary Impairments Pain,ROM,Strength,Balance,Bed Mobility,Transfers,Gait, Activity Tolerance Progress Towards Goals Slow Progress due to Activity Tolerance Assessment Summary Pt requires increased time for recovery after standing mobility. She required Mod A sit>supine and lateral scoot bed mobility, usually sleeps in recliner at home. STS CGA / c FWW, safety cues push from chair arms/ w/c arms, needs rest breaks after mobility come to standing due to tiring weakness. SPT /c FWW CGA. Gait approx 50 ft /c FWW heavily BUE on FWW, unable to trial 4WW use has at home due to weakness in BUE/ BLEs and decrease endurance standing CGA. Trialed stair mgt requires Min A and extra time for descending> ascending, demonstrates heavily B UE WB on hand rail (doesn't have at home) for support. YEAST STACKER recommending SNF for progression in mobility strength before returning home . She doesn't have / assist and extent of physical support needed at this time. Will continue to assess progress. Goals Bed Mobility Goal Standby Assistance Transfer Goal Independent,Front Wheeled Walker,Four Wheeled Walker Gait Goal Independent,Front Wheel Walker ,Four Wheel Walker Gait Distance 50 Other Goals Pt to perform transfer independently with LRAD to show improving functional mobility. Pt to ambulate 50ft independently with LRAD to show improving tolerance to activity in order to ambulate household distances. Pt to ascend/descend 2 steps with WEIGHBRIDGE OPERATOR or LRAD to show improving LE strength in order to return to home safely. Days to Meet Goals 10 Frequency of Treatment Frequency Of Treatment Once a Day Treatment Plan Physical Therapy Treatment Plan Bed Mobility Training,Transfer Training,Gait Training, Therapeutic Exercise,Balance Retraining,Post Op Education, Discharge Planning,Hot or Cold Pack,Neuromuscular Re-ed, Coordination Retraining,Manual Therapy Other Recommendations and Next Treatment STS, BLE strength, increase Focus gait distance, stair mgt LRAD. Recommendations To Nursing Amount of Assist Needed 1 Person Assist Discharge Recommendations PT Discharge Recommendations SNF Rehab Equipment Needed for Home Before May need FWW for home when Discharge ready to DC home. Transportation Needs at Discharge Private Vehicle,Wheelchair/ Cabulance
--- NOTE | 2023-08-29 13:17 | CM.DPC ---
DCP Cont.-UPDATE Pt did not d/c yesterday due to becoming orthostatic prior to leaving. PT is now recommending SNF rehab, due to pt living alone and not being safe/strong enough to manage independently. Referral to [facility] made, pending auth and acceptance. Will continue to monitor.
--- NOTE | 2023-08-29 14:41 | OT.IP.TRT ---
Current Diagnoses Type 2 diabetes mellitus with unspecified complications (08/29/23) Hyperkalemia (08/29/23) Essential (primary) hypertension (08/29/23) Chronic atrial fibrillation, unspecified (08/29/23) Heart failure, unspecified (08/29/23) Pressure ulcer of contiguous site of back, buttock and hip, stage 1 (08/29/23) Acute kidney failure, unspecified (08/29/23) Occupational Therapy Treatment Note M2 OT-IP Current Condition Start: 08/28/23 13:55 Freq: Status: Active Protocol: Document 08/28/23 13:05 [facility] (Rec: 08/28/23 14:19 [facility] [id number]) Occupational Therapy Current Condition Current Condition Evaluation Date 08/28/23 Treatment Diagnosis Acute CHF exacerbation Diagnosis Onset Date 08/27/23 M3 OT- IP Subjective and Pain Start: 08/28/23 13:55 Freq: Status: Active Protocol: Document 08/29/23 13:37 [facility] (Rec: 08/29/23 14:40 [facility] [id number]) OT- Subjective Occupational Therapy Visit Type Type Treatment Note Visit Start Time 13:37 Visit Stop Time 14:16 Total Visit Minutes 39 Occupational Therapy Visit Comments Patient Comments Pt agreed to get up to brush her teeth. Patient/Caregiver Goals To go home but realizes that she is weak now and open to going to skilled rehab now. OT Pain Assessment Pain When Pain Assessed At Rest Pain Present Pain Present Denied Pain M4 OT- IP ADL's Start: 08/28/23 13:55 Freq: Status: Active Protocol: Document 08/29/23 13:37 [facility] (Rec: 08/29/23 14:40 [facility] [id number]) OT [id number] General Evaluation Self-Feeding Ability Independent OT ADL-Grooming General Evaluation Grooming Ability Independent Areas Needing Assistance Retrieving/Set-up of Grooming Items OT ADL-Oral Care General Eval Oral Care Ability Independent Areas of Assistance Retrieving/Set-Up of Items Comments Oral Care Comments Pt having to lean on the counter for balance and activity tolerance in order to do oral care needs as tiring quickly. OT ADL-Dressing Comments OT Dressing Comments Not performed. Pt states the height of her surfaces at home are set up better per pt for her dressing needs. OT ADL-Toileting Comments OT Toileting Comments Pt not having to go at this time. M5 OT- IP IADL's Start: 08/28/23 13:55 Freq: Status: Active Protocol: Document 08/28/23 13:05 [facility] (Rec: 08/28/23 14:19 [facility] [id number]) OT-Instrumental Activities of Daily Living Deficits IADL Deficits Identified Deficits Home Safety Awareness Awareness of Need for Assistance at Home Good Awareness Home Safety Comments Pt able to answer basic home safety questions. Pt is aware that she is not able to do her hygiene needs well but does not want to ask her son and grandson to assist. Medication Management Medication Management Caregiver Administers Money Management Money Management Caregiver Provides Assistance Meal Preparation Meal Preparation Caregiver Provides Assist Meal Preparation Comments Pt has Meals on Wheels which is brought to her in the house . Ct Tech Ct Tech Caregiver Provides Assist Driving Driving Caregiver Provides Assist M6 OT- IP Functional Cognition Start: 08/28/23 13:55 Freq: Status: Active Protocol: Document 08/29/23 13:37 [facility] (Rec: 08/29/23 14:40 [facility] [id number]) Cognitive Factors Limiting Selfcare Function Cognitive Ability Level of Alertness Alert Patient Orientation Name,Place,Situation Attention Span Ability Capable of Focused Attention, Capable of Sustained Attention Ability to Follow Commands Able to Follow One Step Commands Memory Description Short Term Impaired Cognitive Comments Cognitive Assessment Comments Pt able to realize more today that she is weak and open to going to skilled rehab to get better. Pt still needing reminders to keep the FWW in front of her at all time at this time due to her weakness. Normally pt states does not use a device inside the house. M7 OT- IP Mobility and Balance Start: 08/28/23 13:55 Freq: Status: Active Protocol: Document 08/29/23 13:37 [facility] (Rec: 08/29/23 14:40 [facility] [id number]) OT- Bed Mobility Assessment Supine to Sit Supine to Sit Assist Moderate Assistance Scooting Scooting to Edge of Bed Contact Guard Assistance OT-Transfer Assessment Sit to and From Stand Sit to and from Stand Contact Guard Assistance, Minimal Assistance Transfers Transfer Ability Contact Guard Assistance Technique Transfer Destination Bed Transfer Technique Stand Step Pivot Devices Transfer Assistive Devices Gait Belt,Front Wheeled Walker Comments Mobility Comments Pt MODA to help pt up from the bed, increased time and CGA to help scoot to the edge of the bed. Pt needing several minutes to scoot to the edge of the bed. CGA and heavy use of momentum to come to stand from the high bed. Pt will need more assist to come to stand from a lower surface. Pt tends to lean back into posterior tilt today and needing cues to lean forward and occasional CGA as well. OT- Balance Assessment Sitting Balance and Reactions Static Sitting Balance Ability Fair Dynamic Sitting Balance Ability Fair Standing Balance and Reactions Static Standing Balance Ability Fair Dynamic Standing Balance Ability Poor Comments Other Balance Tests/Deviations/Treatment Pt needing lots of momentum to : assist to move herself today. Pt needing to lean on the counter for balance while standing to brush her teeth. M8 OT- IP Objective Assessments Start: 08/28/23 13:55 Freq: Status: Active Protocol: Document 08/28/23 13:05 [facility] (Rec: 08/28/23 14:19 [facility] [id number]) OT Gross Range of Motion Upper Extremity Range of Motion ROM Impairments grossly WFL. OT Strength Comments Strength Comments BUE 5/5 OT- Coordination Assessment Upper Extremity Finger to Nose Test Within Functional Limits M9 OT- IP Assessment and Plan Start: 08/28/23 13:55 Freq: Status: Active Protocol: Document 08/29/23 13:37 [facility] (Rec: 08/29/23 14:40 [facility] [id number]) OT Summary Assessment and Plan Potential Rehabilitation Potential Good Analytic Complexity at Evaluation Moderate Summary OT Impairments Pain,Balance,Functional Mobility,Grooming,Dressing, Toileting,Toilet Transfers, Activity Tolerance Progress Towards Goals Slow Progress due to Medical Issues,Slow Progress due to Activity Tolerance Assessment Summary Pt having more difficulty with transitions and movement and using a lot of momentum to try to come to stand today. Pt also losing her balance in posteriorly while sitting on the edge of the bed. Pt will greatly benefit from core and overall strengthening, increasing overall activity tolerance, and balance. Pt will benefit from skilled rehab prior to going home. Goals Grooming Goal Independent Dressing Goal Independent Toileting Goal Independent Bathing Goal Standby Assistance Toilet Transfer Goal Independent Shower Transfer Goal Standby Assistance Days to Meet Goals 15 Frequency of Treatment Frequency Of Treatment Once a Day Treatment Plan OT Treatment Plan ADL Training,Functional Mobility,Patient/Family Education,Discharge Planning Other Treatment Recommendations and Next cognitive assessment Treatment Focus Discharge Recommendations OT Discharge Recommendations SNF Rehab Home Equipment Needs LB dressing equipment, bidet/ toilet paper aid Transportation Needs at Discharge Wheelchair/Cabulance
--- NOTE | 2023-08-29 14:47 | PM.DS.1 ---
History of Present Illness History of Present Illness Date Patient Seen: 08/29/23 Time Patient Seen: 14:47 Chief complaint: inability to take a deep breath/cough Narrative: 73 years old, female, with history of atrial fibrillation on Eliquis, diabetes mellitus type II, hypertension, hyperlipidemia, corner, artery, disease, history of thyroid, cancer, aortic valve replacement, present to the ER with increased dyspnea and chest tightness since this morning. She was recently hospitalized for medical management of appendicitis and chronic urinary incontinence and bedsores. She reports the chest pain is midsternal, aggravated by taking deep breaths. Denies any fever, populations, nausea, vomiting, abdominal pain, diarrhea, or dysuria. Reports some mild cough in the last week, and decrease exertional tolerance due to shortness of breath. Compliant to her home medications. Laboratory shows WBC 13.8, H&H, 11.3/35.3, platelets 288, INR 1.4, sodium, 133, potassium 5.7, creatinine 1.59, blood sugar 221, A1c, 7.5, LFTs, normal, troponins, 0.012, BNP 1240, lipase, 209, chest x-ray unremarkable, EKG normal sinus rhythm of 58, In the ER, she was given Lasix 40 mg IV, aspirin, 325 mg PO, insulin 5 units sub Q and Carbajal catheter was placed. Vital signs shows temperature 97.6, heart rate 65, blood pressure 138/62, oxygen situation, 99% on room air. Discharge Providers Provider Date of admission: 08/29/23 10:17 Discharge Date: 08/29/23 Primary care physician: Chino Ruggiero MD Consults: 08/27/23 22:55 Consult to Discharge Planning Routine Comment: Consult to Occupational Therapy Evaluate & Treat Comment: Physician Instructions: Evaluate and treat Consult to Physical Therapy Evaluate & Treat Comment: Physician Instructions: Evaluate and Treat 08/28/23 13:49 Consult to Home Health Routine Comment: PT, OT, RN, Bath Aide Reason For Exam: Home Health Discharge provider: Dave Lua, DO Exam Vital Signs (past 8 hours): - 08/29/23 07:30 08/29/23 08:00 08/29/23 08:16 Temperature 99.0 F Pulse Rate 62 58 L Respiratory Rate 18 Blood Pressure 97/73 92/50 L Pulse Oximetry 99 96 Oxygen Delivery Method Room Air Oxygen Flow Rate 0 0 08/29/23 11:00 08/29/23 11:55 Temperature Pulse Rate Respiratory Rate Blood Pressure 135/63 Pulse Oximetry 97 Oxygen Delivery Method Room Air Oxygen Flow Rate 0 Oxygen Delivery Method Room Air Oxygen Flow Rate 0 Objective Labs 08/27/23 17:40 08/29/23 08:11 Labs: Laboratory Results - last 24 hr 08/29/23 08:11 Sodium 135 L Potassium 4.6 Chloride 99 Carbon Dioxide 27 BUN 47 H Creatinine 1.16 H Estimated GFR 50 L BUN/Creatinine Ratio 40.5 H Glucose 202 H Calcium 9.5 Total Bilirubin 0.5 AST 18 ALT 16 Alkaline Phosphatase 60 NT-Pro-B Natriuret Pep 891 H Total Protein 7.6 Albumin 3.8 Globulin 3.8 Albumin/Globulin Ratio 1.0 [facility] Medical History (Updated 08/28/23 @ 01:21 by Romeo Meza MD) Vertigo Sedentary lifestyle Stage II pressure ulcer of sacral region (~02/2023) Hyperlipidemia Thyroid nodule Incontinence Breast screening Abnormal mammogram of left breast NSTEMI (non-ST elevated myocardial infarction) (09/2018) Recent heart attack Coronary artery disease Osteopenia (05/20/14) Knee osteoarthritis Hypertension (~2011) Diabetes mellitus (~2011) Rheumatoid arthritis Colon polyps (08/31/14) Surgical History History of bilateral knee replacement (2009) History of colonoscopy with polypectomy (08/31/14) History of left cataract surgery (03/23/15) History of right cataract surgery (04/06/15) Anesthesia History of knee replacement History of knee replacement Status post delivery (12/21/78) Family History Brother Drowning Father Heart disease Mother Diabetes mellitus Sister Bone cancer Sister Bone cancer Social History marital status: household members: children and none Smoking Status: Never smoker alcohol intake: current substance use type: does not use Discharge Plan Discharge Plan Provider Discharge Comment: 73 F admitted with shortness of breath, not requiring oxygen. Kidney function improved with fluid removal. Continue to remove fluid at home, recommend outpatient follow up with cardiology and PCP as soon as possible to continue working on fluid removal. Urine appears to have an infection as well, antibiotics were prescribed based on your prior urine culture results. Discharge orders & Medications Prescriptions: New furosemide 40 mg tablet 40 mg PO DAILY 30 Days Qty: 30 0RF amoxicillin-pot clavulanate 875-125 mg tablet 1 tab PO BID 4 Days Qty: 8 0RF Continued (DME) pen needle, diabetic [Comfort EZ Pen [place]] 29 gauge x 1/2 needle See Rx Instructions .ROUTE .MEDSUPPLY Qty: 100 3RF Rx Instructions: use to check blood glucose 3x per day (DME) True Metrix Glucose Test Strip Strip See Rx Instructions .ROUTE .COMPLEX Qty: 100 3RF Dose Instruction: USE TO TEST BLOOD SUGAR DAILY Rx Instructions: USE TO TEST BLOOD SUGAR DAILY Eliquis 5 mg tablet 5 mg PO BID Qty: 180 2RF (DME) Parking Permit... See Rx Instructions .Route .MEDSUPPLY Qty: 1 0RF Rx Instructions: Patient meets criteria for permanent parking placard. insulin lispro [Humalog KwikPen Insulin] 100 unit/mL insulin pen 1 sliding scale dose SUBCUT USEASDIRECTD Qty: 15 3RF Rx Instructions: slide scale 2-14 units SQ TID nitroglycerin 0.4 mg tablet, sublingual 0.4 mg SL Q5-15M PRN (Reason: chest pain) Qty: 90 11RF Patient Comments: patient has prescription but has not taken yet Rx Instructions: until response; do not exceed 3 doses per episode metformin 500 mg tablet 1,000 mg PO QAM Rx Instructions: TAKE TWO TABLETS BY MOUTH TWICE DAILY atorvastatin [Lipitor] 80 mg tablet 80 mg PO QPM insulin glargine [Lantus Solostar U-100 Insulin] 100 unit/mL (3 mL) insulin pen 40 unit SUBCUT QAM Patient Comments: pt states that she takes Lantus in the morning instead of nighttime. clopidogrel 75 mg tablet 75 mg PO QAM diltiazem HCl 120 mg capsule,extended release 12 hr 240 mg PO BID Qty: 180 0RF metoprolol succinate 100 mg tablet extended release 24 hr 50 mg PO BID 90 Days Qty: 90 0RF hydrocodone-acetaminophen 5-325 mg tablet 1 tab PO Q4-6H PRN (Reason: pain) Qty: 10 0RF Follow up/Referrals: Chino Ruggiero MD [Primary Care Provider] - Diet/Activity/Treatments Diet: Diet as Tolerated and Low-sodium Diet comment: As tolerated Activity: As tolerated, no restrictions. Visit Report/Discharge Packet Instructions: Congestive Heart Failure (Alternative Therapy), DI for Heart Failure, DI for Urinary Tract Infection (UTI), Furosemide, Amoxicillin and Clavulanic Acid Stand Alone Forms: Patient Portal/API, Stroke Signs & Symptoms Discharge Data Primary Care Provider: Chino Ruggiero Quality VTE Deep Vein Thrombosis/Pulmonary Embolism Present on Admission: No
--- NOTE | 2023-08-29 15:28 | PM.PN.1 ---
Subjective Subjective Interval history: 73 F admitted overnight over concern for shortness of breath. She was not hypoxic. Admitted for diastolic heart failure exacerbation, diuresed overnight and had improvement in symptoms, but with this developed orthostasis and dizziness with difficulty ambulating. She is improved today, got 500 cc bolus. Recommended for SNF by OT, patient interested in going to SNF for rehab. Exam Vital Signs (past 8 hours): - 08/29/23 07:30 08/29/23 08:00 08/29/23 08:16 Temperature 99.0 F Pulse Rate 62 58 L Respiratory Rate 18 Blood Pressure 97/73 92/50 L Pulse Oximetry 99 96 Oxygen Delivery Method Room Air Oxygen Flow Rate 0 0 08/29/23 11:00 08/29/23 11:55 Temperature Pulse Rate Respiratory Rate Blood Pressure 135/63 Pulse Oximetry 97 Oxygen Delivery Method Room Air Oxygen Flow Rate 0 Oxygen Delivery Method Room Air Oxygen Flow Rate 0 Const General: cooperative, comfortable and well developed Orientation: alert and oriented x3 HENMT Head: normal to inspection, normocephalic and atraumatic Face and sinus: normal facial exam Mouth: oral mucosae normal and moist mucous membranes Throat: posterior oropharynx normal Eyes General: appearance normal, both eyes and all related structures Pupils: PERRL EOM: EOM intact bilaterally Neck Neck: normal visual inspection and full ROM Chest Chest: normal inspection of the chest Resp Effort & Inspection: normal respiratory effort and able to speak in complete sentences Auscultation: clear to auscultation bilaterally Cardio Palpation: normal PMI Rate: regular rate Rhythm: regular rhythm Heart Sounds: S1 normal and S2 normal GI Inspection: normal to inspection Palpation: soft and no hepatosplenomegaly Auscultation: normal bowel sounds Skin General: no rashes or lesions noted Lesions: no lesions Rashes: no rashes Trauma: no lacerations or abrasions Neuro General: patient alert, patient awake, patient oriented x3 and no focal motor deficits Cranial Nerves: CN's II-XI intact bilaterally Cognition: normal cognition Speech: speech normal Gait: normal gait Motor: muscle tone normal throughout Sensory Exam: no sensory deficits noted Extrem General: full ROM and no calf tenderness Psych Appearance: grossly normal Mental Status: mental status grossly normal Speech and Movement: speech and movement normal Objective Labs 08/27/23 17:40 08/29/23 08:11 Labs: Laboratory Results - last 24 hr 08/29/23 08:11 Sodium 135 L Potassium 4.6 Chloride 99 Carbon Dioxide 27 BUN 47 H Creatinine 1.16 H Estimated GFR 50 L BUN/Creatinine Ratio 40.5 H Glucose 202 H Calcium 9.5 Total Bilirubin 0.5 AST 18 ALT 16 Alkaline Phosphatase 60 NT-Pro-B Natriuret Pep 891 H Total Protein 7.6 Albumin 3.8 Globulin 3.8 Albumin/Globulin Ratio 1.0 PFSH Medical History (Updated 08/28/23 @ 01:21 by Romeo Meza MD) Vertigo Sedentary lifestyle Stage II pressure ulcer of sacral region (~02/2023) Hyperlipidemia Thyroid nodule Incontinence Breast screening Abnormal mammogram of left breast NSTEMI (non-ST elevated myocardial infarction) (09/2018) Recent heart attack Coronary artery disease Osteopenia (05/20/14) Knee osteoarthritis Hypertension (~2011) Diabetes mellitus (~2011) Rheumatoid arthritis Colon polyps (08/31/14) Surgical History History of bilateral knee replacement (2009) History of colonoscopy with polypectomy (08/31/14) History of left cataract surgery (03/23/15) History of right cataract surgery (04/06/15) Anesthesia History of knee replacement History of knee replacement Status post delivery (12/21/78) Family History Brother Drowning Father Heart disease Mother Diabetes mellitus Sister Bone cancer Sister Bone cancer Social History marital status: household members: children and none Smoking Status: Never smoker alcohol intake: current substance use type: does not use Assessment & Plan Assessment & Plan narrative: (1) acute on chronic diastolic heart failure - patient was not hypoxic on admission, improved with diuresis initially but now likely over diuresed. Now diuresis on hold, resume PO furosemide on discharge. For now monitor fluid status, and BP while holding. Given 500 cc bolus today with improvement in symptoms. - hold further diuretics for now. - Therapies now recommending SNF. (2) Acute kidney injury: - likely due to above volume overload, improved with diuresis today. Continue to follow with BMP, may bump again due to volume overload. (3) Acute hyperkalemia: Most likely due to KADE. No EKG changes. Improved with diuretic. (4) Chronic Atrial fibrillation: continue home dilt, metoprolol and eliquis. Of note metoprolol and dilt were held this morning for low BP and dizziness, with improvement this afternoon can likely resume tomorrow. (5) Diabetes mellitus type 2, controlled, with complications: ADA diet, SSI, Lantus, monitor BG ACHS Hold Metformin for now (6) Essential hypertension: Status: Chronic Plan: Continue Metoprolol, Diltiazem but held today as discussed above. (7) Pressure ulcer: Problem details: Deconditioning, Bedridden Qualifiers: Laterality: unspecified laterality Pressure injury location: contiguous region involving back and buttock Pressure injury stage: stage 1 Qualified Code(s): L89.41 - Pressure ulcer of contiguous site of back, buttock and hip, stage 1 Status: Acute Plan: Decubitus precautions Code: Full, surrogate is son Dispo: was discharged, but cancelled due to development of severe orthostasis prior to home, likely due to overdiuresis. If orthostasis improves can hopefully discharge home tomorrow. Quality VTE Deep Vein Thrombosis/Pulmonary Embolism Present on Admission: No
[2023-08-29] MEDS: ATORVASTATIN 20 MG TABLET 80 MG PO (16:56)
[2023-08-30] VITALS (9 sets, daily range): BP systolic 99–142; BP diastolic 44–72; PULSE 67–90; RESP 16–20; TEMP 35.9–36.6; O2SAT 96–99
[2023-08-30 05:55] LABS: Add Manual Diff / Slide Review NO; Basophils Absolute Auto 100 /uL (0-100); Basophils Percent Auto 0.6 % (0-2); Eosinophils Absolute Auto 200 /uL (0-450); Eosinophils Percent Auto 2.2 % (2-4); Hematocrit 32.6 % (36-46); Hemoglobin 11.1 g/dL (12.0-16.0); Lymphocytes Absolute Auto 2300 /uL (1100-4500); Lymphocytes Percent Auto 22.4 % (25-40); Mean Corpuscular HGB Conc 34.1 % (30-36); Mean Corpuscular Hemoglobin 28.4 PG (26-34); Mean Corpuscular Volume 83.3 fL (80-100); Monocytes Absolute Auto 800 /uL (0-900); Monocytes Percent Auto 8.1 % (3-14); Neutrophils Absolute Auto 6900 /uL (1500-7000); Neutrophils Percent Auto 66.7 % (50-75); Platelet Count 237 X10^3/uL (150-400); Red Blood Cell Count 3.91 X10^6/uL (4.0-5.2); Red Cell Distribution Width 14.9 % (11.6-14.8); White Blood Cell Count 10.4 X10^3/uL (4.5-11.0)
[2023-08-30 06:08] LABS: Alanine Aminotransferase 16 IU/L (<35); Albumin 3.7 g/dL (3.5-5.0); Alkaline Phosphatase 62 U/L (38-126); Aspartate Aminotransferase 16 IU/L (14-36); Bilirubin Total 0.5 mg/dL (0.2-1.3); Blood Urea Nitrogen 41 mg/dL (7-17); Calcium 9.4 mg/dL (8.4-10.2); Carbon Dioxide 26 mmol/L (22-32); Chloride 101 mmol/L (98-107); Estimated Glomerular Filt Rate 55 mL/min (>60); Globulin 3.6 g/dL (1.7-4.1); Glucose 171 mg/dL (80-110); HEMOLYSIS < 15 (0-50); Potassium 4.3 mmol/L (3.4-5.1); Sodium 136 mmol/L (137-145); Total Protein 7.3 g/dL (6.3-8.2)
--- NOTE | 2023-08-30 08:31 | CM.DPC ---
DCP Cont. Reviewed EMR. Called [facility] to initiate an auth for SNF rehab, faxed clinicals. Called Parmjit to update. Will monitor for acceptance, hopefully d/c her later this afternoon. S[facility]RA is following closely.
[2023-08-30] MEDS: APIXABAN 5 MG TABLET PO ×2 (08:35→20:47)
[2023-08-30] MEDS: ACETAMINOPHEN 325 MG TABLET 650 MG PO ×2 (08:35→20:46)
[2023-08-30] MEDS: CLOPIDOGREL 75 MG TABLET PO (08:36)
[2023-08-30] MEDS: INSULIN GLARGINE 100 UNIT/ML 3ML PEN 40 UNIT SUBCUT (09:03)
[2023-08-30] MEDS: INSULIN LISPRO 100 UNIT/ML 3ML VIAL SUBCUT ×4 (09:03→20:48)
[2023-08-30] MEDS: SODIUM CHLORIDE 0.9% FLUSH 10 ML IV ×2 (09:04→20:55)
--- NOTE | 2023-08-30 10:34 | PT.IPTN ---
Current Diagnoses Type 2 diabetes mellitus with unspecified complications (08/29/23) Hyperkalemia (08/29/23) Essential (primary) hypertension (08/29/23) Chronic atrial fibrillation, unspecified (08/29/23) Heart failure, unspecified (08/29/23) Pressure ulcer of contiguous site of back, buttock and hip, stage 1 (08/29/23) Acute kidney failure, unspecified (08/29/23) Physical Therapy Treatment Note M2 PT-IP Current Condition Start: 08/28/23 11:28 Freq: NEEDED Status: Active Protocol: Document 08/29/23 12:30 SP (Rec: 08/29/23 16:21 SP [id number]) Physical Therapy Current Condition Current Condition Evaluation Date 08/28/23 Treatment Diagnosis KADE, acute hyperkalemia; generalized weakness Onset Date 08/27/23 M3 PT-IP Subjective Start: 08/28/23 11:28 Freq: NEEDED Status: Active Protocol: Document 08/30/23 11:01 ABENA (Rec: 08/30/23 11:26 ZF [id number]) Subjective Physical Therapy Visit Type Type Treatment Note Visit Start Time 10:34 Visit Stop Time 10:57 Total Visit Minutes 23 Number of GAS METER MECHANIC Visits 2 Physical Therapy Visit Comments Patient Comments Pt up in chair, agreeable to therapy. Pt reports headache, pain meds provided prior to treatment session. M4 PT-IP Mobility and Gait Start: 08/28/23 11:28 Freq: NEEDED Status: Active Protocol: Document 08/30/23 11:01 ABENA (Rec: 08/30/23 11:26 ZF [id number]) PT-Bed Mobility Assessment Sit to Supine Sit to Supine Standby Assistance,1 Person Assistance,Bedrails Scooting Scooting to Edge of Bed Maximum Assistance PT-Transfer Assessment Sit to and From Stand Sit to and from Stand Contact Guard Assistance Equipment Transfer Assistive Device Gait Belt,Front Wheeled Walker Transfers Transfer Destination Bed,Chair Transfer Technique Stand Step Pivot Transfer Ability Level of Assist Standby Assistance,Use of Upper Extremities Comments Mobility Comments STS from recliner requires SBA w/2ww. Pt performs rocking motion and uses momentum to achieve standing. Pt amb ~140' w/2ww, SBA. VC for stepping closer to AD to improve posture and safety. Pt asc/concetta x3 steps using BL HR, CGA and step thru gait. Pt completes seated and standing TE to inclue ankle pumps, marching, mini squats x10 reps. Sitting EOB>Supine requires SBA for safety. Pt uses momentum to swing LE into bed as she falls back into bed. Warmed blanket provided, call light in reach , all needs met. Gait Assessment Gait Gait Assistance Required: Standby Assistance Distance (Feet) 140 Assistive Devices Assistive Device Gait Belt,Front Wheeled Walker Gait Deviations General Gait Pattern Decreased Stride Length,Flexed Trunk Factors Limiting Gait Function Factors Limiting Gait Function Decreased Activity Tolerance, Decreased Strength,Poor Balance,Poor Safety Awareness, Respiratory Distress Comments Gait Comments See mobility Comments. Stair Climbing Assessment Evaluation Level of Assist On Stairs Contact Guard Assistance,1 Person Assistance Devices Stair Climbing Assistive Devices Left Railing,Right Railing Technique/Endurance Stair Climbing Direction Ascend and Descend Stair Climbing Technique Step Over Step Number of Steps Climbed 3 Stair Climbing Set # Repetitions (reps) 1 Comments Stair Climbing Comments See Mobility Comments PT-Balance Assessment Sitting Balance and Reactions Static Sitting Balance Ability Good Dynamic Sitting Balance Ability Fair Standing Balance and Reactions Static Standing Balance Ability Good Dynamic Standing Balance Ability Fair Device Used FWW M5 PT-IP Objective Assessments Start: 08/28/23 11:28 Freq: NEEDED Status: Active Protocol: Document 08/28/23 11:29 AB (Rec: 08/28/23 11:49 AB [id number]) Orientation Orientation/Cognition Level of Alertness Alert Orientation Name,Age,Birthday,Month,Date, Year,Day of Week,Place, Situation Language Function Ability No Deficits Noted Safety Awareness Understands Safety Issues Memory Description No Deficits Noted Gross Range of Motion Upper Extremity ROM Assessment Within Functional Limits Lower Extremity ROM Assessment Within Functional Limits Strength Upper Extremity Strength Assessment Within Functional Limits Lower Extremity Strength Assessment Within Functional Limits M6 PT-IP Treatment Start: 08/28/23 11:28 Freq: NEEDED Status: Active Protocol: Document 08/30/23 11:01 ABENA (Rec: 08/30/23 11:26 [id number]) Physical Therapy Treatment Education Education Provided Safety M7 PT-IP Assessment and Plan Start: 08/28/23 11:28 Freq: NEEDED Status: Active Protocol: Document 08/30/23 11:01 ABENA (Rec: 08/30/23 11:26 ZF [id number]) PT Summary Assessment and Plan Potential Rehabilitation Potential Good Summary Impairments Pain,ROM,Strength,Balance,Bed Mobility,Transfers,Gait, Activity Tolerance Progress Towards Goals Progressing Toward Goals Assessment Summary Pt requires SBA for safety w/ functional mobility. Performs SittingEOB>Supine w/SBA, but with reduced safety. Requires Cueing for safety w/amb and transfers. Goals Bed Mobility Goal Standby Assistance Transfer Goal Independent,Front Wheeled Walker,Four Wheeled Walker Gait Goal Independent,Front Wheel Walker ,Four Wheel Walker Gait Distance 50 Other Goals Pt to perform transfer independently with LRAD to show improving functional mobility. Pt to ambulate 50ft independently with LRAD to show improving tolerance to activity in order to ambulate household distances. Pt to ascend/descend 2 steps with ASSEMBLY WORKER or LRAD to show improving LE strength in order to return to home safely. Days to Meet Goals 10 Frequency of Treatment Frequency Of Treatment Once a Day Treatment Plan Physical Therapy Treatment Plan Bed Mobility Training,Transfer Training,Gait Training, Therapeutic Exercise,Balance Retraining,Post Op Education, Discharge Planning,Hot or Cold Pack,Neuromuscular Re-ed, Coordination Retraining,Manual Therapy Other Recommendations and Next Treatment STS, BLE strength, increase Focus gait distance, stair mgt LRAD. Recommendations To Nursing Amount of Assist Needed 1 Person Assist Discharge Recommendations PT Discharge Recommendations Home vs SNF Other Discharge Recommendations Pt would require 24/7 care to return home safely at this time, which she does not have. Recommending SNF. Equipment Needed for Home Before May need FWW for home when Discharge ready to DC home. Transportation Needs at Discharge Private Vehicle,Wheelchair/ Cabulance
[2023-08-30] MEDS: cefTRIAXone 1,000 MG in SODIUM CHLORIDE 0.9% 100 ML 200 MG IV (11:15)
--- NOTE | 2023-08-30 11:54 | CM.DPC ---
DCP Cont. Reviewed EMR and team rounds for status updates. Pt has been accepted at [facility] for SNF admission, they are unable to place her today due to other pending admits, and will plan to have her admitted tomorrow am. DCP will need to call [facility] on Sunday to clarify the time of transport, as well as for DCP to fax PASSAR (completed, with facesheet), scripts, med list, and d/c summary. She will be receiving IV ABO's today to treat for UTI. Pt/inpt RN updated. [place] Auth# [id number]
--- NOTE | 2023-08-30 14:10 | OT.IP.TRT ---
Current Diagnoses Type 2 diabetes mellitus with unspecified complications (08/29/23) Hyperkalemia (08/29/23) Essential (primary) hypertension (08/29/23) Chronic atrial fibrillation, unspecified (08/29/23) Heart failure, unspecified (08/29/23) Pressure ulcer of contiguous site of back, buttock and hip, stage 1 (08/29/23) Acute kidney failure, unspecified (08/29/23) Occupational Therapy Treatment Note M2 OT-IP Current Condition Start: 08/28/23 13:55 Freq: Status: Active Protocol: Document 08/28/23 13:05 [facility] (Rec: 08/28/23 14:19 [facility] [id number]) Occupational Therapy Current Condition Current Condition Evaluation Date 08/28/23 Treatment Diagnosis Acute CHF exacerbation Diagnosis Onset Date 08/27/23 M3 OT- IP Subjective and Pain Start: 08/28/23 13:55 Freq: Status: Active Protocol: Document 08/30/23 14:19 [facility] (Rec: 08/30/23 14:28 [facility] [id number]) OT- Subjective Occupational Therapy Visit Type Type Treatment Note Visit Start Time 14:10 Visit Stop Time 14:18 Total Visit Minutes 8 Occupational Therapy Visit Comments Patient Comments Pt not wanting to get up at this time, but agreed to do a cognitive assessment. Patient/Caregiver Goals TO get better. OT Pain Assessment Pain When Pain Assessed At Rest Pain Present Pain Present Denied Pain M4 OT- IP ADL's Start: 08/28/23 13:55 Freq: Status: Active Protocol: Document 08/29/23 13:37 [facility] (Rec: 08/29/23 14:40 [facility] [id number]) OT SPA-Wopa-Acvarnw General Evaluation Self-Feeding Ability Independent OT ADL-Grooming General Evaluation Grooming Ability Independent Areas Needing Assistance Retrieving/Set-up of Grooming Items OT ADL-Oral Care General Eval Oral Care Ability Independent Areas of Assistance Retrieving/Set-Up of Items Comments Oral Care Comments Pt having to lean on the counter for balance and activity tolerance in order to do oral care needs as tiring quickly. OT ADL-Dressing Comments OT Dressing Comments Not performed. Pt states the height of her surfaces at home are set up better per pt for her dressing needs. OT ADL-Toileting Comments OT Toileting Comments Pt not having to go at this time. M5 OT- IP IADL's Start: 08/28/23 13:55 Freq: Status: Active Protocol: Document 08/28/23 13:05 [facility] (Rec: 08/28/23 14:19 [facility] [id number]) OT-Instrumental Activities of Daily Living Deficits IADL Deficits Identified Deficits Home Safety Awareness Awareness of Need for Assistance at Home Good Awareness Home Safety Comments Pt able to answer basic home safety questions. Pt is aware that she is not able to do her hygiene needs well but does not want to ask her son and grandson to assist. Medication Management Medication Management Caregiver Administers Money Management Money Management Caregiver Provides Assistance Meal Preparation Meal Preparation Caregiver Provides Assist Meal Preparation Comments Pt has Meals on Wheels which is brought to her in the house . Kier Pleater Kier Pleater Caregiver Provides Assist Driving Driving Caregiver Provides Assist M6 OT- IP Functional Cognition Start: 08/28/23 13:55 Freq: Status: Active Protocol: Document 08/30/23 14:19 [facility] (Rec: 08/30/23 14:28 [facility] [id number]) Cognitive Factors Limiting Selfcare Function Cognitive Ability Level of Alertness Alert Patient Orientation Name,Age,Birthday,Month,Date, Year,Day of Week,Place, Situation Attention Span Ability Capable of Focused Attention, Capable of Sustained Attention Ability to Follow Commands Able to Follow One Step Commands Memory Description Short Term Impaired,Working Impaired Cognitive Tests SLUMS Pt scored 18/30 on the SLUMS which implies cognitive deficits/dementia. Pt able to name 12 animals in one minute, able to remember 2/5 objects after time passed, not able to recall 4 digit number backwards, not able to draw the numbers of the clock or hands of the clock correctly, and able to answer 2/4 questions right after paragraph read. Cognitive Comments Cognitive Assessment Comments Pt has difficulty with her short term memory. M9 OT- IP Assessment and Plan Start: 08/28/23 13:55 Freq: Status: Active Protocol: Document 08/30/23 14:19 [facility] (Rec: 08/30/23 14:28 [facility] [id number]) OT Summary Assessment and Plan Potential Rehabilitation Potential Good Analytic Complexity at Evaluation Moderate Summary OT Impairments Pain,Balance,Functional Mobility,Grooming,Dressing, Toileting,Toilet Transfers, Activity Tolerance Progress Towards Goals Slow Progress due to Medical Issues,Slow Progress due to Cognition Assessment Summary Pt looking to go to skilled rehab tomorrow. Pt is motivated to get better. Goals Grooming Goal Independent Dressing Goal Independent Toileting Goal Independent Bathing Goal Standby Assistance Toilet Transfer Goal Independent Shower Transfer Goal Standby Assistance Days to Meet Goals 10 Frequency of Treatment Frequency Of Treatment Once a Day Treatment Plan OT Treatment Plan ADL Training,Functional Mobility,Patient/Family Education,Discharge Planning Discharge Recommendations OT Discharge Recommendations SNF Rehab Home Equipment Needs LB dressing equipment, bidet/ toilet paper aid Transportation Needs at Discharge Wheelchair/Cabulance
--- NOTE | 2023-08-30 16:07 | PM.PN.1 ---
Subjective Subjective Interval history: Patient less dizzy today with improved Cr following fluid bolus yesterday. Plan for SNF tomorrow. Has UTI so IV abx ordered. Exam Vital Signs (past 8 hours): - 08/30/23 08:23 08/30/23 12:00 Pulse Rate [Orthostatic Lying] 74 Pulse Rate [Orthostatic Sitting] 79 Pulse Rate [Orthostatic Standing] 90 Blood Pressure [Orthostatic Lying] 128/60 Blood Pressure [Orthostatic Sitting] 99/57 L Blood Pressure [Orthostatic Standing] 114/58 L Pulse Oximetry 99 Oxygen Delivery Method Room Air Oxygen Flow Rate 0 Oxygen Delivery Method Room Air Oxygen Flow Rate 0 Const General: cooperative, comfortable and well developed Orientation: alert and oriented x3 HENMT Head: normal to inspection, normocephalic and atraumatic Face and sinus: normal facial exam Mouth: oral mucosae normal and moist mucous membranes Throat: posterior oropharynx normal Eyes General: appearance normal, both eyes and all related structures Pupils: PERRL EOM: EOM intact bilaterally Neck Neck: normal visual inspection and full ROM Chest Chest: normal inspection of the chest Resp Effort & Inspection: normal respiratory effort and able to speak in complete sentences Auscultation: clear to auscultation bilaterally Cardio Palpation: normal PMI Rate: regular rate Rhythm: regular rhythm Heart Sounds: S1 normal and S2 normal GI Inspection: normal to inspection Palpation: soft and no hepatosplenomegaly Auscultation: normal bowel sounds Skin General: no rashes or lesions noted Lesions: no lesions Rashes: no rashes Trauma: no lacerations or abrasions Neuro General: patient alert, patient awake, patient oriented x3 and no focal motor deficits Cranial Nerves: CN's II-XI intact bilaterally Cognition: normal cognition Speech: speech normal Gait: normal gait Motor: muscle tone normal throughout Sensory Exam: no sensory deficits noted Extrem General: full ROM and no calf tenderness Psych Appearance: grossly normal Mental Status: mental status grossly normal Speech and Movement: speech and movement normal Objective Labs 08/30/23 05:10 08/30/23 05:10 Labs: Laboratory Results - last 24 hr 08/30/23 05:10 WBC 10.4 RBC 3.91 L Hgb 11.1 L Hct 32.6 L MCV 83.3 MCH 28.4 MCHC 34.1 RDW 14.9 H Plt Count 237 Neut % (Auto) 66.7 Lymph % (Auto) 22.4 L [place] % (Auto) 8.1 Eos % (Auto) 2.2 Baso % (Auto) 0.6 Neut # (Auto) 6900 Lymph # (Auto) 2300 [place] # (Auto) 800 Eos # (Auto) 200 Baso # (Auto) 100 Sodium 136 L Potassium 4.3 Chloride 101 Carbon Dioxide 26 BUN 41 H Creatinine 1.08 H Estimated GFR 55 L BUN/Creatinine Ratio 38.0 H Glucose 171 H Calcium 9.4 Total Bilirubin 0.5 AST 16 ALT 16 Alkaline Phosphatase 62 Total Protein 7.3 Albumin 3.7 Globulin 3.6 Albumin/Globulin Ratio 1.0 [facility] Medical History (Updated 08/28/23 @ 01:21 by Romeo Meza MD) Vertigo Sedentary lifestyle Stage II pressure ulcer of sacral region (~02/2023) Hyperlipidemia Thyroid nodule Incontinence Breast screening Abnormal mammogram of left breast NSTEMI (non-ST elevated myocardial infarction) (09/2018) Recent heart attack Coronary artery disease Osteopenia (05/20/14) Knee osteoarthritis Hypertension (~2011) Diabetes mellitus (~2011) Rheumatoid arthritis Colon polyps (08/31/14) Surgical History History of bilateral knee replacement (2009) History of colonoscopy with polypectomy (08/31/14) History of left cataract surgery (03/23/15) History of right cataract surgery (04/06/15) Anesthesia History of knee replacement History of knee replacement Status post delivery (12/21/78) Family History Brother Drowning Father Heart disease Mother Diabetes mellitus Sister Bone cancer Sister Bone cancer Social History marital status: household members: children and none Smoking Status: Never smoker alcohol intake: current substance use type: does not use Assessment & Plan Assessment & Plan narrative: (1) acute on chronic diastolic heart failure - patient was not hypoxic on admission, improved with diuresis initially but now likely over diuresed. Now diuresis on hold, resume PO furosemide on discharge. For now monitor fluid status, and BP while holding. Given 500 cc bolus today with improvement in symptoms. - hold further diuretics for now. - Therapies now recommending SNF. (2) Acute kidney injury, resolving - improved with IVF following overdiuresis (3) Acute hyperkalemia, resolved Most likely due to KADE. No EKG changes. Improved with diuretic. (4) Chronic Atrial fibrillation: continue home dilt, metoprolol and eliquis. Of note metoprolol and dilt were held this morning for low BP and dizziness, with improvement this afternoon can likely resume tomorrow. (5) Diabetes mellitus type 2, controlled, with complications: ADA diet, SSI, Lantus, monitor BG ACHS Hold Metformin for now (6) Essential hypertension: Status: Chronic Plan: Continue Metoprolol, Diltiazem but held today as discussed above. (7) Pressure ulcer: Problem details: Deconditioning, Bedridden Qualifiers: Laterality: unspecified laterality Pressure injury location: contiguous region involving back and buttock Pressure injury stage: stage 1 Qualified Code(s): L89.41 - Pressure ulcer of contiguous site of back, buttock and hip, stage 1 Status: Acute Plan: Decubitus precautions (8) UTI - UA with pyuria and urine culture >100k -Rocephin IV x3 days Code: Full, surrogate is naun Dispo: SNF on 08/31. Accepted at [facility] VTE Deep Vein Thrombosis/Pulmonary Embolism Present on Admission: No
[2023-08-30] MEDS: ATORVASTATIN 20 MG TABLET 80 MG PO (17:07)
[2023-08-31] VITALS (7 sets, daily range): BP systolic 118–133; BP diastolic 52–63; PULSE 66–78; RESP 17–18; TEMP 36.2–37.1; O2SAT 95–98
[2023-08-31 05:53] LABS: Add Manual Diff / Slide Review NO; Basophils Absolute Auto 100 /uL (0-100); Eosinophils Absolute Auto 200 /uL (0-450); Eosinophils Percent Auto 2.8 % (2-4); Hematocrit 31.2 % (36-46); Hemoglobin 10.5 g/dL (12.0-16.0); Lymphocytes Absolute Auto 2300 /uL (1100-4500); Lymphocytes Percent Auto 26.7 % (25-40); Mean Corpuscular HGB Conc 33.8 % (30-36); Mean Corpuscular Hemoglobin 28.3 PG (26-34); Mean Corpuscular Volume 83.7 fL (80-100); Monocytes Absolute Auto 800 /uL (0-900); Monocytes Percent Auto 9.7 % (3-14); Neutrophils Absolute Auto 5100 /uL (1500-7000); Neutrophils Percent Auto 59.8 % (50-75); Platelet Count 240 X10^3/uL (150-400); Red Blood Cell Count 3.72 X10^6/uL (4.0-5.2); Red Cell Distribution Width 14.8 % (11.6-14.8); White Blood Cell Count 8.5 X10^3/uL (4.5-11.0)
--- NOTE | 2023-08-31 07:45 | P.DS_ITS ---
History of Present Illness History of Present Illness Chief complaint: inability to take a deep breath/cough Narrative: 73 years old, female, with history of atrial fibrillation on Eliquis, diabetes mellitus type II, hypertension, hyperlipidemia, corner, artery, disease, history of thyroid, cancer, aortic valve replacement, present to the ER with increased dyspnea and chest tightness since this morning. She was recently hospitalized for medical management of appendicitis and chronic urinary incontinence and bedsores. She reports the chest pain is midsternal, aggravated by taking deep breaths. Denies any fever, populations, nausea, vomiting, abdominal pain, diarrhea, or dysuria. Reports some mild cough in the last week, and decrease exertional tolerance due to shortness of breath. Compliant to her home medications. Laboratory shows WBC 13.8, H&H, 11.3/35.3, platelets 288, INR 1.4, sodium, 133, potassium 5.7, creatinine 1.59, blood sugar 221, A1c, 7.5, LFTs, normal, troponins, 0.012, BNP 1240, lipase, 209, chest x-ray unremarkable, EKG normal sinus rhythm of 58, In the ER, she was given Lasix 40 mg IV, aspirin, 325 mg PO, insulin 5 units sub Q and Carbajal catheter was placed. Vital signs shows temperature 97.6, heart rate 65, blood pressure 138/62, oxygen situation, 99% on room air. Discharge Providers Provider Date of admission: 08/29/23 10:17 Discharge Date: 08/31/23 Primary care physician: Chino Ruggiero MD Consults: 08/27/23 22:55 Consult to Discharge Planning Routine Comment: Consult to Occupational Therapy Evaluate & Treat Comment: Physician Instructions: Evaluate and treat Consult to Physical Therapy Evaluate & Treat Comment: Physician Instructions: Evaluate and Treat 08/28/23 13:49 Consult to Home Health Routine Comment: PT, OT, RN, Bath Aide Reason For Exam: Home Health Discharge provider: Andreas David DO Summary Hospital Course Discharge Diagnosis: (1) acute on chronic diastolic heart failure - patient was not hypoxic on admission, improved with diuresis initially but now likely over diuresed. Now diuresis on hold, resume PO furosemide on discharge. For now monitor fluid status, and BP while holding. Given 500 cc bolus with improvement in symptoms. - hold further diuretics for now. - Therapies now recommending SNF. (2) Acute kidney injury, resolving - improved with IVF following overdiuresis (3) Acute hyperkalemia, resolving Most likely due to KADE. No EKG changes. Improved with diuretic. (4) Chronic Atrial fibrillation: continue home dilt, metoprolol and eliquis. (5) Diabetes mellitus type 2, controlled, with complications: ADA diet, SSI, Lantus, monitor BG ACHS Hold Metformin for now (6) Essential hypertension: Status: Chronic Plan: Continue Metoprolol, Diltiazem (7) Pressure ulcer: Problem details: Deconditioning, Bedridden Qualifiers: Laterality: unspecified laterality Pressure injury location: contiguous region involving back and buttock Pressure injury stage: stage 1 Qualified Code(s): L89.41 - Pressure ulcer of contiguous site of back, buttock and hip, stage 1 Status: Acute Plan: Decubitus precautions (8) UTI - UA with pyuria and urine culture >100k -Rocephin IV x3 days given Hospital Course: Admitted for SOB from acute diastolic CHF requiring lasix. Symptoms improved. Patient too weak for home per PT so discharged to SNF. Exam Vital Signs (past 8 hours): - 08/31/23 00:00 08/31/23 02:00 08/31/23 04:00 Temperature 97.7 F Pulse Rate 74 Respiratory Rate 17 Blood Pressure 118/52 L Pulse Oximetry 96 95 95 Oxygen Delivery Method Room Air Room Air Oxygen Flow Rate 0 08/31/23 06:00 Temperature 98.8 F Pulse Rate 66 Respiratory Rate 17 Blood Pressure 133/60 Pulse Oximetry 96 Oxygen Delivery Method Oxygen Flow Rate 0 Oxygen Delivery Method Room Air Oxygen Flow Rate 0 Const General: cooperative, comfortable and well developed Orientation: alert and oriented x3 HENMT Head: normal to inspection, normocephalic and atraumatic Face and sinus: normal facial exam Mouth: oral mucosae normal and moist mucous membranes Throat: posterior oropharynx normal Eyes General: appearance normal, both eyes and all related structures Pupils: PERRL EOM: EOM intact bilaterally Neck Neck: normal visual inspection and full ROM Chest Chest: normal inspection of the chest Resp Effort & Inspection: normal respiratory effort and able to speak in complete sentences Auscultation: clear to auscultation bilaterally Cardio Palpation: normal PMI Rate: regular rate Rhythm: regular rhythm Heart Sounds: S1 normal and S2 normal GI Inspection: normal to inspection Palpation: soft and no hepatosplenomegaly Auscultation: normal bowel sounds Skin General: no rashes or lesions noted Lesions: no lesions Rashes: no rashes Trauma: no lacerations or abrasions Neuro General: patient alert, patient awake, patient oriented x3 and no focal motor deficits Cranial Nerves: CN's II-XI intact bilaterally Cognition: normal cognition Speech: speech normal Gait: normal gait Motor: muscle tone normal throughout Sensory Exam: no sensory deficits noted Extrem General: full ROM and no calf tenderness Psych Appearance: grossly normal Mental Status: mental status grossly normal Speech and Movement: speech and movement normal Objective Labs 08/31/23 05:04 08/30/23 05:10 Labs: Laboratory Results - last 24 hr 08/31/23 05:04 WBC 8.5 RBC 3.72 L Hgb 10.5 L Hct 31.2 L MCV 83.7 MCH 28.3 MCHC 33.8 RDW 14.8 Plt Count 240 Neut % (Auto) 59.8 Lymph % (Auto) 26.7 [place] % (Auto) 9.7 Eos % (Auto) 2.8 Baso % (Auto) 1.0 Neut # (Auto) 5100 Lymph # (Auto) 2300 [place] # (Auto) 800 Eos # (Auto) 200 Baso # (Auto) 100 [facility] Medical History (Updated 08/28/23 @ 01:21 by Romeo Meza MD) Vertigo Sedentary lifestyle Stage II pressure ulcer of sacral region (~02/2023) Hyperlipidemia Thyroid nodule Incontinence Breast screening Abnormal mammogram of left breast NSTEMI (non-ST elevated myocardial infarction) (09/2018) Recent heart attack Coronary artery disease Osteopenia (05/20/14) Knee osteoarthritis Hypertension (~2011) Diabetes mellitus (~2011) Rheumatoid arthritis Colon polyps (08/31/14) Surgical History History of bilateral knee replacement (2009) History of colonoscopy with polypectomy (08/31/14) History of left cataract surgery (03/23/15) History of right cataract surgery (04/06/15) Anesthesia History of knee replacement History of knee replacement Status post delivery (12/21/78) Family History Brother Drowning Father Heart disease Mother Diabetes mellitus Sister Bone cancer Sister Bone cancer Social History marital status: household members: children and none Smoking Status: Never smoker alcohol intake: current substance use type: does not use Discharge Plan Discharge Plan Patient Disposition: Home Provider Discharge Comment: You were admitted with shortness of breath, but not requiring oxygen. Kidney function improved with fluid removal. Continue to remove fluid at home with the lasix I've prescribed, recommend outpatient follow up with cardiology and PCP as soon as possible to continue working on fluid removal. Urine appears to have an infection as well, antibiotics were given. If you become dizzy again and your BP is a bit lower while taking the new diuretic pill, you can stop taking it and your symptoms should improve. Discharge orders & Medications Prescriptions: New furosemide [Lasix] 20 mg tablet 20 mg PO DAILY Qty: 30 0RF Continued (DME) pen needle, diabetic [Comfort EZ Pen Fellows] 29 gauge x 1/2 needle See Rx Instructions .ROUTE .MEDSUPPLY Qty: 100 3RF Rx Instructions: use to check blood glucose 3x per day (DME) True Metrix Glucose Test Strip Strip See Rx Instructions .ROUTE .COMPLEX Qty: 100 3RF Dose Instruction: USE TO TEST BLOOD SUGAR DAILY Rx Instructions: USE TO TEST BLOOD SUGAR DAILY Eliquis 5 mg tablet 5 mg PO BID Qty: 180 2RF (DME) Parking Permit... See Rx Instructions .Route .MEDSUPPLY Qty: 1 0RF Rx Instructions: Patient meets criteria for permanent parking placard. insulin lispro [Humalog KwikPen Insulin] 100 unit/mL insulin pen 1 sliding scale dose SUBCUT USEASDIRECTD Qty: 15 3RF Rx Instructions: slide scale 2-14 units SQ TID nitroglycerin 0.4 mg tablet, sublingual 0.4 mg SL Q5-15M PRN (Reason: chest pain) Qty: 90 11RF Patient Comments: patient has prescription but has not taken yet Rx Instructions: until response; do not exceed 3 doses per episode metformin 500 mg tablet 1,000 mg PO QAM Rx Instructions: TAKE TWO TABLETS BY MOUTH TWICE DAILY atorvastatin [Lipitor] 80 mg tablet 80 mg PO QPM insulin glargine [Lantus Solostar U-100 Insulin] 100 unit/mL (3 mL) insulin pen 40 unit SUBCUT QAM Patient Comments: pt states that she takes Lantus in the morning instead of nighttime. clopidogrel 75 mg tablet 75 mg PO QAM hydrocodone-acetaminophen 5-325 mg tablet 1 tab PO Q4-6H PRN (Reason: pain) Qty: 10 0RF diltiazem HCl 120 mg capsule,extended release 12 hr 240 mg PO BID Qty: 180 0RF metoprolol succinate 100 mg tablet extended release 24 hr 50 mg PO BID 90 Days Qty: 90 0RF Follow up/Referrals: Chino Ruggiero MD [Primary Care Provider] - 09/05/23 11:00 am ( Appt:09/05 @ 11:00 with [facility]) Diet/Activity/Treatments Diet: Diet as Tolerated and Low-sodium Diet comment: As tolerated Activity: As tolerated, no restrictions. Visit Report/Discharge Packet Instructions: Congestive Heart Failure (Alternative Therapy), DI for Heart Failure, DI for Urinary Tract Infection (UTI), Furosemide, Amoxicillin and Clavulanic Acid Stand Alone Forms: Patient Portal/API, Stroke Signs & Symptoms Discharge Data Primary Care Provider: Chino Ruggiero Quality VTE Deep Vein Thrombosis/Pulmonary Embolism Present on Admission: No
[2023-08-31] MEDS: cefTRIAXone 1,000 MG in SODIUM CHLORIDE 0.9% 100 ML 200 MG IV (08:10)
[2023-08-31] MEDS: CLOPIDOGREL 75 MG TABLET PO (08:11)
[2023-08-31] MEDS: dilTIAZem CD 120 MG CAP 240 MG PO (08:11)
[2023-08-31] MEDS: APIXABAN 5 MG TABLET PO (08:11)
[2023-08-31] MEDS: METOPROLOL ER 50 MG TABLET PO (08:11)
[2023-08-31] MEDS: INSULIN LISPRO 100 UNIT/ML 3ML VIAL SUBCUT (08:12)
[2023-08-31] MEDS: INSULIN GLARGINE 100 UNIT/ML 3ML PEN 40 UNIT SUBCUT (08:13)
[2023-08-31] MEDS: SODIUM CHLORIDE 0.9% FLUSH 10 ML IV (08:25)
[2023-08-31] MEDS: SODIUM CHLORIDE 0.9% 250 ML 21 ML IV (08:25)
--- NOTE | 2023-08-31 09:15 | CM.DPC ---
DCP Continued CENTRAL OFFICE OPERATOR reviewed EMR. Spoke with Brenda at . Able to do an 1100 hand picker time. VICENTA Valdes kindly agreed to send PASSR and signed medlist to . CENTRAL OFFICE OPERATOR updated RN and gave nurse report number. CENTRAL OFFICE OPERATOR updated POULTRY DRESSER. CENTRAL OFFICE OPERATOR updated patient. Plan: patient to d/c to today at 1100. CM team will continue to follow as needed. SAYRA Solorzano
--- NOTE | 2023-08-31 10:25 | PT.IPTN ---
Current Diagnoses Type 2 diabetes mellitus with unspecified complications (08/29/23) Hyperkalemia (08/29/23) Essential (primary) hypertension (08/29/23) Chronic atrial fibrillation, unspecified (08/29/23) Heart failure, unspecified (08/29/23) Pressure ulcer of contiguous site of back, buttock and hip, stage 1 (08/29/23) Acute kidney failure, unspecified (08/29/23) Physical Therapy Treatment Note M2 PT-IP Current Condition Start: 08/28/23 11:28 Freq: NEEDED Status: Discharge Protocol: Document 08/29/23 12:30 SP (Rec: 08/29/23 16:21 SP [id number]) Physical Therapy Current Condition Current Condition Evaluation Date 08/28/23 Treatment Diagnosis KADE, acute hyperkalemia; generalized weakness Onset Date 08/27/23 M3 PT-IP Subjective Start: 08/28/23 11:28 Freq: NEEDED Status: Discharge Protocol: Document 08/31/23 10:25 AB (Rec: 08/31/23 12:52 AB [email or web address]) Subjective Physical Therapy Visit Type Type Treatment Note Visit Start Time 10:25 Visit Stop Time 10:38 Total Visit Minutes 13 Number of HORTICULTURE WORKER Visits 0 M4 PT-IP Mobility and Gait Start: 08/28/23 11:28 Freq: NEEDED Status: Discharge Protocol: Document 08/31/23 10:25 AB (Rec: 08/31/23 12:52 AB [email or web address]) PT-Bed Mobility Assessment Supine to Sit Supine to Sit Maximum Assistance Scooting Scooting to Edge of Bed Maximum Assistance PT-Transfer Assessment Sit to and From Stand Sit to and from Stand Moderate Assistance,1 Person Assistance,Use of Upper Extremities Equipment Transfer Assistive Device Gait Belt,Front Wheeled Walker Orthotic/Prosthetic Devices or Brace: No Transfers Transfer Destination Toilet Transfer Technique ambulated Transfer Ability Level of Assist Minimal Assistance,1 Person Assistance,Use of Upper Extremities Comments Mobility Comments pt supine in bed. NAC stated that pt is leaving in ~ 30 min . PT assisted pt with mobility in room. pt requesting to use the toilet. pt completed supine to sit max A and max cues. requiring max A for scooting to EOB. completed sit to stand mod A and max cues. pt ambulated to the toilet using FWW min A ~ 15 ft. presents with unsteady antalgic gait. pt required assist with hygiene care and brief management. pt ambulated from the toilet to the chair using FWW min A. NAC in room and assisted pt with dressing and getting ready for d/c. left pt with NAC. Gait Assessment Gait Gait Assistance Required: Minimum Assistance Distance (Feet) 15 Able to Maintain Weight Bearing Status Yes During Gait Assistive Devices Assistive Device Gait Belt,Front Wheeled Walker Orthotic/Prosthetic Devices or Brace: No Gait Deviations General Gait Pattern Antalgic,Step-to Gait Factors Limiting Gait Function Factors Limiting Gait Function Decreased Activity Tolerance, Decreased Strength,Difficulty Following Directions,Pain,Poor Balance,Poor Safety Awareness M5 PT-IP Objective Assessments Start: 08/28/23 11:28 Freq: NEEDED Status: Discharge Protocol: Document 08/28/23 11:29 AB(2) (Rec: 08/28/23 11:49 AB(2) [id number]) Orientation Orientation/Cognition Level of Alertness Alert Orientation Name,Age,Birthday,Month,Date, Year,Day of Week,Place, Situation Language Function Ability No Deficits Noted Safety Awareness Understands Safety Issues Memory Description No Deficits Noted Gross Range of Motion Upper Extremity ROM Assessment Within Functional Limits Lower Extremity ROM Assessment Within Functional Limits Strength Upper Extremity Strength Assessment Within Functional Limits Lower Extremity Strength Assessment Within Functional Limits M6 PT-IP Treatment Start: 08/28/23 11:28 Freq: NEEDED Status: Discharge Protocol: Document 08/31/23 10:25 AB (Rec: 08/31/23 12:52 AB [email or web address]) Physical Therapy Treatment Education Education Provided Safety M7 PT-IP Assessment and Plan Start: 08/28/23 11:28 Freq: NEEDED Status: Discharge Protocol: Document 08/31/23 10:25 AB (Rec: 08/31/23 12:52 AB [email or web address]) PT Summary Assessment and Plan Potential Rehabilitation Potential Fair Summary Impairments Pain,ROM,Strength,Balance, Coordination,Sensation,Tone, Cognition,Bed Mobility, Transfers,Gait,Activity Tolerance Progress Towards Goals Slow Progress due to Activity Tolerance,Slow Progress - Other Assessment Summary pt requiring max A for bed mobility, mod A for sit to stand and min A for ambulation using FWW. pt will require 24 /7 assist and will benefit from SNF rehab. pt plans to d /c to SNF today. Goals Bed Mobility Goal Standby Assistance Transfer Goal Independent,Front Wheeled Walker,Four Wheeled Walker Gait Goal Independent,Front Wheel Walker ,Four Wheel Walker Gait Distance 50 Other Goals Pt to perform transfer independently with LRAD to show improving functional mobility. Pt to ambulate 50ft independently with LRAD to show improving tolerance to activity in order to ambulate household distances. Pt to ascend/descend 2 steps with SKATING RINK ICE MAKER or LRAD to show improving LE strength in order to return to home safely. Days to Meet Goals 10 Frequency of Treatment Frequency Of Treatment Once a Day Treatment Plan Physical Therapy Treatment Plan Bed Mobility Training,Transfer Training,Gait Training, Therapeutic Exercise,Balance Retraining,Discharge Planning, Hot or Cold Pack,Neuromuscular Re-ed,Coordination Retraining ,Manual Therapy Recommendations To Nursing Amount of Assist Needed 1 Person Assist Discharge Recommendations PT Discharge Recommendations SNF Rehab Transportation Needs at Discharge Private Vehicle,Wheelchair/ Cabulance
== END 2023-08-31 11:00 | DRG 291 ==
LOC: ED 22:32 → AC 22:55
PROVIDERS: Emergency Medicine; Internal Medicine; Admitting Provider Internal Medicine; Emergency Provider Emergency Medicine; PCP Family Medicine; Referring Provider Emergency Medicine; Visit Provider Internal Medicine
DX: I11.0 Hypertensive heart disease with heart failure (principal); I50.33 Acute on chronic diastolic (congestive) heart failure; N17.9 Acute kidney failure, unspecified; I48.20 Chronic atrial fibrillation, unspecified; N39.0 Urinary tract infection, site not specified; L89.41 Pressure ulcer of contiguous site of back, buttock and hip, stage 1; E11.65 Type 2 diabetes mellitus with hyperglycemia; I95.2 Hypotension due to drugs; T50.2X5A Adverse effect of carbonic-anhydrase inhibitors, benzothiadiazides and other diuretics, initial encounter; E87.5 Hyperkalemia; E78.5 Hyperlipidemia, unspecified; Z79.4 Long term (current) use of insulin; Z79.01 Long term (current) use of anticoagulants; Z95.2 Presence of prosthetic heart valve; Z79.84 Long term (current) use of oral hypoglycemic drugs; Z74.01 Bed confinement status
CPT/HCPCS: 36415; 71045; 76770; 80053; 81001; 82550; 82962; 83690; 83735; 83880; 84484; 85025; 85610; 85730; 87077; 87086; 87186; 93005; 93010; 96374; 96375; 97110; 97116; 97129; 97161; 97166; 97530; 97535; 99284; G0378; J0696; J1815; J1940

== ENCOUNTER → 2023-10-19 16:59 | Outpatient (CLI) | payer OTHER, SELFPAY ==
[2023-08-28 00:17] VITALS: BMI 43.7
[2023-10-19 17:38] LABS: Add Manual Diff / Slide Review NO; Basophils Absolute Auto 100 /uL (0-100); Eosinophils Absolute Auto 200 /uL (0-450); Eosinophils Percent Auto 1.5 % (2-4); Hematocrit 35.6 % (36-46); Hemoglobin 11.8 g/dL (12.0-16.0); Lymphocytes Absolute Auto 2200 /uL (1100-4500); Lymphocytes Percent Auto 15.1 % (25-40); Mean Corpuscular HGB Conc 33.1 % (30-36); Mean Corpuscular Volume 81.6 fL (80-100); Monocytes Absolute Auto 700 /uL (0-900); Monocytes Percent Auto 4.7 % (3-14); Neutrophils Absolute Auto 11200 /uL (1500-7000); Neutrophils Percent Auto 77.7 % (50-75); Platelet Count 301 X10^3/uL (150-400); Red Blood Cell Count 4.36 X10^6/uL (4.0-5.2); Red Cell Distribution Width 14.4 % (11.6-14.8); White Blood Cell Count 14.4 X10^3/uL (4.5-11.0)
[2023-10-19 17:41] LABS: Hemoglobin A1C% w Est Avg Glu 7.4 % (4.0-6.0)
[2023-10-19 17:42] LABS: Alanine Aminotransferase 22 IU/L (<35); Albumin 4.1 g/dL (3.5-5.0); Alkaline Phosphatase 71 U/L (38-126); Aspartate Aminotransferase 23 IU/L (14-36); BUN Creatinine Ratio 31.9 (6-22); Bilirubin Total 0.4 mg/dL (0.2-1.3); Blood Urea Nitrogen 46 mg/dL (7-17); Calcium 9.7 mg/dL (8.4-10.2); Carbon Dioxide 20 mmol/L (22-32); Chloride 103 mmol/L (98-107); Estimated Glomerular Filt Rate 39 mL/min (>60); Globulin 4.1 g/dL (1.7-4.1); Glucose 177 mg/dL (80-110); HEMOLYSIS < 15 (0-50); Potassium 4.7 mmol/L (3.4-5.1); Sodium 136 mmol/L (137-145); Total Protein 8.2 g/dL (6.3-8.2)
[2023-10-19 17:56] LABS: HEMOLYSIS < 15 (0-50); Iron 57 ug/dL (37-170)
[2023-10-19 18:07] LABS: Percent Iron Saturation 22 % (15-50); Total Iron Binding Capacity 259 ug/dL (265-497); Transferrin 224 mg/dL (206-381)
[2023-10-19 18:27] LABS: TSH w/ Reflex to FT4 1.39 uIU/mL (0.47-4.68)
[2023-10-19 18:31] LABS: Vitamin B12 701 pg/mL (239-931)
== END ==
PROVIDERS: PCP Family Medicine; Referring Provider Family Medicine; Visit Provider Family Medicine
DX: E87.5 Hyperkalemia (principal); E11.9 Type 2 diabetes mellitus without complications; N17.9 Acute kidney failure, unspecified; I50.9 Heart failure, unspecified; I48.91 Unspecified atrial fibrillation; E78.5 Hyperlipidemia, unspecified; I10 Essential (primary) hypertension
CPT/HCPCS: 36415; 80053; 82607; 83036; 83540; 83550; 84443; 85025

== ENCOUNTER 2023-10-23 16:02 | Emergency (ER) | payer OTHER, SELFPAY ==
[2023-08-28 00:17] VITALS: BMI 43.7
[2023-10-23] VITALS (21 sets, daily range): BP systolic 81–125; BP diastolic 46–76; PULSE 98–133; RESP 13–27; TEMP 36.6; O2SAT 94–100; BMI 35.2
--- NOTE | 2023-10-23 16:19 | DI.RAD.S_ITS ---
PROCEDURE: XR CHEST 1V INDICATIONS: chest pain TECHNIQUE: One view of the chest was acquired. COMPARISON: [facility], CR, XR CHEST 1V, 08/27/2023, 17:52. FINDINGS: Surgical changes and devices: None. Lungs and pleura: Lungs are clear. No pleural effusions or pneumothorax. Mediastinum: Mediastinal contours appear normal. Heart size is normal. Bones and chest wall: No suspicious bony lesions. Overlying soft tissues appear unremarkable. IMPRESSION: No acute cardiopulmonary abnormality is seen. Dictated by: Cindi Reese M.D. on 10/23/2023 at 16:44 Approved by: Cindi Reese M.D. on 10/23/2023 at 16:45
[2023-10-23 16:51] LABS: Add Manual Diff / Slide Review NO; Basophils Absolute Auto 100 /uL (0-100); Basophils Percent Auto 1.2 % (0-2); Eosinophils Absolute Auto 100 /uL (0-450); Hematocrit 32.5 % (36-46); Hemoglobin 10.7 g/dL (12.0-16.0); Lymphocytes Absolute Auto 2200 /uL (1100-4500); Lymphocytes Percent Auto 17.9 % (25-40); Mean Corpuscular HGB Conc 32.8 % (30-36); Mean Corpuscular Hemoglobin 27.2 PG (26-34); Mean Corpuscular Volume 82.8 fL (80-100); Monocytes Absolute Auto 800 /uL (0-900); Monocytes Percent Auto 6.2 % (3-14); Neutrophils Absolute Auto 9000 /uL (1500-7000); Neutrophils Percent Auto 73.7 % (50-75); Platelet Count 257 X10^3/uL (150-400); Red Blood Cell Count 3.92 X10^6/uL (4.0-5.2); Red Cell Distribution Width 14.6 % (11.6-14.8); White Blood Cell Count 12.2 X10^3/uL (4.5-11.0)
[2023-10-23 16:54] LABS: INR 1.3 (0.9-1.3); Prothrombin Time 15.4 SECONDS (9.4-12.5)
[2023-10-23 16:56] LABS: PTT Partial Thromboplastin Tim 31 SECONDS (25.1-36.5)
[2023-10-23 16:58] LABS: Alanine Aminotransferase 23 IU/L (<35); Albumin 3.8 g/dL (3.5-5.0); Alkaline Phosphatase 57 U/L (38-126); Aspartate Aminotransferase 18 IU/L (14-36); BUN Creatinine Ratio 31.7 (6-22); Bilirubin Total 0.4 mg/dL (0.2-1.3); Blood Urea Nitrogen 38 mg/dL (7-17); Calcium 9.1 mg/dL (8.4-10.2); Carbon Dioxide 26 mmol/L (22-32); Chloride 103 mmol/L (98-107); Creatine Kinase 33 U/L (30-135); Estimated Glomerular Filt Rate 48 mL/min (>60); Globulin 3.8 g/dL (1.7-4.1); Glucose 183 mg/dL (80-110); HEMOLYSIS < 15 (0-50); Lipase 166 U/L (23-300); Magnesium 1.5 mg/dL (1.6-2.3); Potassium 4.5 mmol/L (3.4-5.1); Sodium 136 mmol/L (137-145); Total Protein 7.6 g/dL (6.3-8.2)
[2023-10-23 17:09] LABS: Troponin I < 0.012 ng/mL (0.01-0.034)
--- NOTE | 2023-10-23 17:39 | PC.NURSE ---
while changing pt brief pt urinated the sheets changed all bed sheets and linen; provided new brief and warm blanket
--- NOTE | 2023-10-23 18:23 | ED_ITS ---
HPI - Chest Pain General Chief Complaint: Chest Pain Stated Complaint: chest pain w exertion Time Seen by Provider: 10/23/23 18:03 Source: patient and EMS Mode of arrival: EMS Limitations: no limitations History of Present Illness HPI narrative: Patient is a 73-year-old female who comes in the emergency department today by EMS for evaluation of chest pain with exertion. She states that the symptoms started earlier today. She did have some nausea vomiting and diarrhea yesterday but that has improved. She has a history of AFib. Is on Eliquis. States she is taking all of her medications. She initially stated that the chest pain happened when she was up moving around but upon further discussion with her it is not as much chest pain but more palpitations. She states she feels like her heart is pounding and it is worse when she is up moving around. No shortness of breath. No abdominal pain. No no nausea and vomiting today. No skin rashes. No belly pain. No change in bowel habits or urinary symptoms. Related Data Home Medications Medication Instructions Recorded Confirmed atorvastatin 80 mg tablet (Lipitor) 80 mg PO QPM 06/02/23 10/19/23 clopidogrel 75 mg tablet 75 mg PO QAM 06/02/23 10/19/23 insulin glargine 100 unit/mL (3 40 unit SUBCUT QA 06/02/23 10/19/23 mL) subcutaneous pen (Lantus Solostar U-100 Insulin) metformin 500 mg tablet 1,000 mg PO QAM 06/02/23 10/19/23 metoprolol succinate 50 mg 50 mg PO DAILY 10/19/23 10/19/23 tablet,extended release 24 hr Previous Rx's Medication Instructions Recorded Parking Permit... #1 ea 09/08/20 pen needle, diabetic 29 gauge x #100 ea 03/09/22 1/2 (Comfort EZ Pen Combined Locks) blood sugar diagnostic (True #100 strips 11/09/22 Metrix Glucose Test Strip) insulin lispro 100 unit/mL 1 sliding scale dose SUBCUT 04/24/23 subcutaneous pen (Humalog KwikPen USEASDIRECTD #15 mL (U-100) Insulin) nitroglycerin 0.4 mg sublingual 0.4 mg sublingual Q5-15M PRN chest 04/24/23 tablet pain #90 tabs diltiazem HCl 120 mg 240 mg (2 x 120 mg) PO BID #180 06/09/23 capsule,extended release 12 hr caps furosemide 20 mg tablet (Lasix) 20 mg PO DAILY #30 tabs 08/31/23 hydrocodone 5 mg-acetaminophen 325 1 tab PO Q4-6H PRN pain #10 tabs 08/31/23 mg tablet apixaban 5 mg tablet (Eliquis) 5 mg PO BID #180 tabs 10/19/23 empagliflozin 25 mg tablet See Rx Instructions PO DAILY #90 10/19/23 (Jardiance) tabs Allergies Allergy/AdvReac Type Severity Reaction Status Date / Time Sulfa (Sulfonamide Allergy Mild RASH Verified 10/19/23 15:42 Antibiotics) Review of Systems Review of Systems ROS Unobtainable: All systems reviewed & are unremarkable except as noted in HPI and below Patient History Medical History Vertigo Sedentary lifestyle Stage II pressure ulcer of sacral region (~02/2023) Hyperlipidemia Thyroid nodule Incontinence Breast screening Abnormal mammogram of left breast NSTEMI (non-ST elevated myocardial infarction) (09/2018) Recent heart attack Coronary artery disease Osteopenia (05/20/14) Knee osteoarthritis Hypertension (~2011) Diabetes mellitus (~2011) Rheumatoid arthritis Colon polyps (08/31/14) Surgical History History of bilateral knee replacement (2009) History of colonoscopy with polypectomy (08/31/14) History of left cataract surgery (03/23/15) History of right cataract surgery (04/06/15) Anesthesia History of knee replacement History of knee replacement Status post delivery (12/21/78) Family History Brother Drowning Father Heart disease Mother Diabetes mellitus Sister Bone cancer Sister Bone cancer Social History marital status: household members: children Smoking Status: Never smoker alcohol intake: current substance use type: does not use Smoking Status: Never smoker alcohol intake frequency: holidays/special occasions only Substance Use Type: does not use Exam Initial Vital Signs Initial Vital Signs: Vital Signs Temperature 97.8 F 10/23/23 16:14 Pulse Rate 120 H 10/23/23 16:14 Respiratory Rate 20 10/23/23 16:14 Blood Pressure 105/67 10/23/23 16:14 Pulse Oximetry 99 10/23/23 16:14 Oxygen Delivery Method Room Air 10/23/23 16:14 Const General: cooperative, comfortable and No ill appearing HENMT Head: normal to inspection and normocephalic Resp Effort & Inspection: normal respiratory effort Auscultation: clear to auscultation bilaterally Cardio Rate: tachycardic Rhythm: abnormal rhythm GI Inspection: normal to inspection and non-distended Skin General: no rashes or lesions noted Extrem General: normal to inspection Course Orders Ordered: ED Orders 10/23/23 19:53 Troponin & CK Cardiac Panel Stat Discontinued Medications Acetaminophen (Acetaminophen 325 Mg Tablet) 650 mg PO NOW ONE Stop: 10/23/23 20:27 Last Admin: 10/23/23 20:32 Dose: 650 mg Documented By: ROSARIO Aspirin (Aspirin 81 Mg Chew Tab) 324 mg PO NOW ONE Stop: 10/23/23 16:20 Last Admin: 10/23/23 19:31 Dose: Not Given Documented By: LORENZO Metoprolol Succinate (Metoprolol Er 25 Mg Tablet) 25 mg PO NOW ONE Stop: 10/23/23 19:24 Last Admin: 10/23/23 21:11 Dose: Not Given Documented By: LORENZO Vital Signs Vital signs: Vital Signs - 8 hr 10/23/23 18:38 10/23/23 18:45 10/23/23 18:45 Pulse Rate 106 H 120 H Respiratory Rate 24 17 Blood Pressure 81/46 L Pulse Oximetry 99 100 Oxygen Delivery Method 10/23/23 18:48 10/23/23 18:48 10/23/23 19:00 Pulse Rate 111 H 106 H Respiratory Rate 23 18 Blood Pressure 90/61 Pulse Oximetry 100 100 Oxygen Delivery Method 10/23/23 19:00 10/23/23 19:05 10/23/23 19:05 Pulse Rate 117 H Respiratory Rate 27 H Blood Pressure 82/52 L 90/52 L Pulse Oximetry 99 Oxygen Delivery Method 10/23/23 19:15 10/23/23 19:15 10/23/23 19:30 Pulse Rate 112 H Respiratory Rate 20 Blood Pressure 109/76 107/64 Pulse Oximetry 99 Oxygen Delivery Method Room Air 10/23/23 19:30 10/23/23 19:45 10/23/23 19:45 Pulse Rate 105 H 105 H Respiratory Rate 20 20 Blood Pressure 88/59 L Pulse Oximetry 98 98 Oxygen Delivery Method Room Air 10/23/23 19:48 10/23/23 19:48 10/23/23 20:00 Pulse Rate 98 H 104 H Respiratory Rate 24 21 Blood Pressure 119/63 Pulse Oximetry 99 94 Oxygen Delivery Method 10/23/23 20:16 10/23/23 20:16 10/23/23 20:30 Pulse Rate 114 H Respiratory Rate 22 Blood Pressure 116/70 95/52 L Pulse Oximetry 98 Oxygen Delivery Method 10/23/23 20:30 10/23/23 20:45 10/23/23 20:45 Pulse Rate 107 H 99 H Respiratory Rate 18 18 Blood Pressure 106/72 Pulse Oximetry 98 99 Oxygen Delivery Method Room Air Room Air 10/23/23 21:00 Pulse Rate 100 H Respiratory Rate 25 H Blood Pressure Pulse Oximetry Oxygen Delivery Method MDM - Chest Pain Lab Data Attestation: I reviewed the patient's lab results. 10/23/23 16:35 10/23/23 16:35 Labs: Lab Results 10/23/23 10/23/23 Range/Units 16:35 19:53 WBC 12.2 H (4.5-11.0) X10^3/uL RBC 3.92 L (4.0-5.2) X10^6/uL Hgb 10.7 L (12.0-16.0) g/dL Hct 32.5 L (36-46) % MCV 82.8 (80-100) fL MCH 27.2 (26-34) PG MCHC 32.8 (30-36) % RDW 14.6 (11.6-14.8) % Plt Count 257 (150-400) X10^3/uL Neut % (Auto) 73.7 (50-75) % Lymph % (Auto) 17.9 L (25-40) % [place] % (Auto) 6.2 (3-14) % Eos % (Auto) 1.0 L (2-4) % Baso % (Auto) 1.2 (0-2) % Neut # (Auto) 9000 H (9213-7861) /uL Lymph # (Auto) 2200 (0205-8276) /uL [place] # (Auto) 800 (0-900) /uL Eos # (Auto) 100 (0-450) /uL Baso # (Auto) 100 (0-100) /uL PT 15.4 H (9.4-12.5) SECONDS INR 1.3 (0.9-1.3) APTT 31 (25.1-36.5) SECONDS Sodium 136 L (137-145) mmol/L Potassium 4.5 (3.4-5.1) mmol/L Chloride 103 (98-107) mmol/L Carbon Dioxide 26 (22-32) mmol/L BUN 38 H (7-17) mg/dL Creatinine 1.20 H (0.52-1.04) mg/dL Estimated GFR 48 L (>60) mL/min BUN/Creatinine Ratio 31.7 H (6-22) Glucose 183 H (80-110) mg/dL Calcium 9.1 (8.4-10.2) mg/dL Magnesium 1.5 L (1.6-2.3) mg/dL Total Bilirubin 0.4 (0.2-1.3) mg/dL AST 18 (14-36) IU/L ALT 23 (<35) IU/L Alkaline Phosphatase 57 (38-126) U/L Total Creatine Kinase 33 32 (30-135) U/L Troponin I < 0.012 < 0.012 (0.01-0.034) ng/mL Total Protein 7.6 (6.3-8.2) g/dL Albumin 3.8 (3.5-5.0) g/dL Globulin 3.8 (1.7-4.1) g/dL Albumin/Globulin Ratio 1.0 (1.0-2.8) Lipase 166 (23-300) U/L Imaging Data Chest x-ray: Radiologist's Impression: PROCEDURE: XR CHEST 1V INDICATIONS: chest pain TECHNIQUE: One view of the chest was acquired. COMPARISON: [facility], , XR CHEST 1V, 08/27/2023, 17:52. FINDINGS: Surgical changes and devices: None. Lungs and pleura: Lungs are clear. No pleural effusions or pneumothorax. Mediastinum: Mediastinal contours appear normal. Heart size is normal. Bones and chest wall: No suspicious bony lesions. Overlying soft tissues appear unremarkable. IMPRESSION: No acute cardiopulmonary abnormality is seen. ECG Data Attestation: I personally reviewed and interpreted this ECG as follows: Interpretation: Atrial fibrillation Ventricular rate [address] T wave changes MDM Narrative Medical decision making narrative: Upon arrival patient was AFib with RVR in the heart rate in the 130s to 150s. During her time here her heart rate improved however she still remained in AFib. She was consistently in the 95-110 range with regard to her heart rate. 2- troponins. Rest of her labs are unremarkable. She does have a leukocytosis of 12.2 however no specific signs of infection. I discussed with her options to include rhythm control with sedation and cardioversion. Discussed the risks and benefits of this. Patient states that she does not want to sedation and does not want to be cardioverted. She would rather just continue her medications. She is now relatively rate controlled. Not hypotensive. Will discharge patient home with instructions to continue her medications and to return to the emergency department if her symptoms continue or worsen. Also advised that she contact your wire mesh gate assembler for follow-up. She expressed understanding and agreement. Discharge Plan Departure Patient Disposition: Home Clinical Impression: Atrial fibrillation Instructions: DI for Atrial Fibrillation Activity Restrictions/Additional Instructions: Recommend that you continue to take all of your medications as directed. When you return home take your evening medications. Recommend that you contact your primary care doctor for a follow-up. Return to the emergency department for new or worsening symptoms. Prescriptions: No Action (DME) pen needle, diabetic [Comfort EZ Pen Combined Locks] 29 gauge x 1/2 needle See Rx Instructions .ROUTE .MEDSUPPLY Qty: 100 3RF Rx Instructions: use to check blood glucose 3x per day (DME) True Metrix Glucose Test Strip Strip See Rx Instructions .ROUTE .COMPLEX Qty: 100 3RF Dose Instruction: USE TO TEST BLOOD SUGAR DAILY Rx Instructions: USE TO TEST BLOOD SUGAR DAILY (DME) Parking Permit... See Rx Instructions .Route .MEDSUPPLY Qty: 1 0RF Rx Instructions: Patient meets criteria for permanent parking placard. insulin lispro [Humalog KwikPen Insulin] 100 unit/mL insulin pen 1 sliding scale dose SUBCUT USEASDIRECTD Qty: 15 3RF Rx Instructions: slide scale 2-14 units SQ TID nitroglycerin 0.4 mg tablet, sublingual 0.4 mg SL Q5-15M PRN (Reason: chest pain) Qty: 90 11RF Patient Comments: patient has prescription but has not taken yet Rx Instructions: until response; do not exceed 3 doses per episode Jardiance 25 mg tablet See Rx Instructions PO DAILY Qty: 90 1RF Rx Instructions: t 1/2 tab po daily for 1 week, then increase to 1 tab daily thereafter Eliquis 5 mg tablet 5 mg PO BID Qty: 180 2RF metoprolol succinate 50 mg tablet extended release 24 hr 50 mg PO DAILY metformin 500 mg tablet 1,000 mg PO QAM Rx Instructions: TAKE TWO TABLETS BY MOUTH TWICE DAILY atorvastatin [Lipitor] 80 mg tablet 80 mg PO QPM insulin glargine [Lantus Solostar U-100 Insulin] 100 unit/mL (3 mL) insulin pen 40 unit SUBCUT QAM Patient Comments: pt states that she takes Lantus in the morning instead of nighttime. clopidogrel 75 mg tablet 75 mg PO QAM hydrocodone-acetaminophen 5-325 mg tablet 1 tab PO Q4-6H PRN (Reason: pain) Qty: 10 0RF furosemide [Lasix] 20 mg tablet 20 mg PO DAILY Qty: 30 0RF diltiazem HCl 120 mg capsule,extended release 12 hr 240 mg PO BID Qty: 180 0RF Referrals: Chino Ruggiero MD [Primary Care Provider] - Stand Alone Forms: Patient Portal/API
[2023-10-23 20:14] LABS: Creatine Kinase 32 U/L (30-135)
[2023-10-23 20:27] LABS: Troponin I < 0.012 ng/mL (0.01-0.034)
[2023-10-23] MEDS: ACETAMINOPHEN 325 MG TABLET 650 MG PO (20:32)
== END 2023-10-23 21:25 | disposition home or self-care (01) ==
PROVIDERS: Emergency Medicine; Emergency Provider Emergency Medicine; PCP Family Medicine
DX: I48.91 Unspecified atrial fibrillation (principal); R11.2 Nausea with vomiting, unspecified; R19.7 Diarrhea, unspecified; Z79.01 Long term (current) use of anticoagulants; Z79.899 Other long term (current) drug therapy
CPT/HCPCS: 36415; 71045; 80053; 82550; 83690; 83735; 84484; 85025; 85610; 85730; 93005; 93010; 99284

== ENCOUNTER → 2023-10-25 18:57 | Outpatient (ROUT) | payer OTHER, SELFPAY ==
[2023-08-28 00:17] VITALS: BMI 43.7
[2023-10-25 19:25] LABS: Appearance Urine UA CLOUDY; Bilirubin Urine UA NEGATIVE (NEGATIVE); Color Urine UA YELLOW; Glucose Urine UA NEGATIVE (Negative); Ketones Urine UA NEGATIVE (NEGATIVE); Leukocyte Esterase Urine UA 2+ (NEGATIVE); Nitrite Urine UA NEGATIVE (Negative); Occult Blood Urine UA 3+ (Negative); Protein Urine UA TRACE (Negative); Specific Gravity Urine UA 1.015 (1.000-1.035); Urobilinogen Urine UA 0.2 E.U./dL (0.2)
[2023-10-25 19:34] LABS: pH Urine UA 6.5 (4.5-8.0)
[2023-10-25 20:18] LABS: Bacteria Urine Many (>30); Culture Indicated Urine Specimen Cultured; RBC Urine 10-30/HPF (0-5/HPF); Squamous Epithelial Cell Urine 0-1 /HPF (0-5/HPF); WBC Urine >100/HPF (0-5/HPF)
== END ==
PROVIDERS: PCP Family Medicine; Visit Provider Family Medicine
DX: R30.0 Dysuria (principal)
CPT/HCPCS: 81001; 87077; 87086; 87186

== ENCOUNTER 2023-11-10 14:27 | Inpatient (IN) | payer OTHER, SELFPAY ==
[2023-08-28 00:17] VITALS: BMI 43.7
[2023-11-10] VITALS (64 sets, daily range): BP systolic 88–144; BP diastolic 44–100; PULSE 83–160; RESP 15–39; TEMP 36.6–37.3; O2SAT 96–100; BMI 43.0
--- NOTE | 2023-11-10 14:30 | DI.RAD.S_ITS ---
PROCEDURE: XR CHEST 1V INDICATIONS: chest pain TECHNIQUE: One view of the chest was acquired. COMPARISON: [facility], CR, XR CHEST 1V, 10/23/2023, 16:21. FINDINGS: Surgical changes and devices: None. Lungs and pleura: Lungs are clear. No pleural effusions or pneumothorax. Mediastinum: Mediastinal contours appear normal. Heart size is mildly enlarged. Bones and chest wall: No suspicious bony lesions. Overlying soft tissues appear unremarkable. IMPRESSION: No acute cardiopulmonary abnormality is seen. Dictated by: Nati Gil M.D. on 11/10/2023 at 15:00 Approved by: Nati Gil M.D. on 11/10/2023 at 15:01
--- NOTE | 2023-11-10 14:42 | ED_ITS ---
HPI - General Adult General Chief complaint: Chest Pain Stated complaint: CP/AFIB Time Seen by Provider: 11/10/23 14:29 Source: patient Mode of arrival: EMS Limitations: no limitations History of Present Illness HPI narrative: Patient is a 73-year-old female. Has a history of atrial fibrillation. Also has a history of insulin-dependent diabetes. Is on metoprolol and apixaban. She has not had any of her medications in the past 2 days. She states that her neighbor helps her with her medicines but her neighbor has been on vacation so she has not taken any of her medicines. This morning she states she was sitting on the couch. Had a fairly sudden onset of shortness of breath and chest discomfort and palpitations. This happened approximately 7 hours ago. She initially did not call anyone for help. She was waiting for her daughter to come home. EMS was eventually called. He received 25 mg of diltiazem for a heart rate that appeared to be in AFib. Her heart rate improved from the 180s to 110s she reports improvement of the chest pain but still having some shortness of breath. Related Data Home Medications Medication Instructions Recorded Confirmed atorvastatin 80 mg tablet (Lipitor) 80 mg PO QPM 06/02/23 11/10/23 insulin glargine 100 unit/mL (3 40 unit SUBCUT QAM 06/02/23 11/10/23 mL) subcutaneous pen (Lantus Solostar U-100 Insulin) cefpodoxime 200 mg tablet 400 mg PO BID 11/10/23 11/10/23 empagliflozin 25 mg tablet 25 mg PO DAILY 11/10/23 11/10/23 (Jardiance) Previous Rx's Medication Instructions Recorded Parking Permit... #1 ea 09/08/20 pen needle, diabetic 29 gauge x #100 ea 03/09/2210/16 (Comfort EZ Pen [place]) insulin lispro 100 unit/mL 1 sliding scale dose SUBCUT 04/24/23 subcutaneous pen (Humalog KwcataPen USEASDIRECTD #15 mL (U-100) Insulin) apixaban 5 mg tablet (Eliquis) 5 mg PO BID #180 tabs 10/19/23 blood sugar diagnostic (True #100 strips 10/30/23 Metrix Glucose Test Strip) clopidogrel 75 mg tablet 75 mg PO QAM #90 tabs 11/07/23 diltiazem HCl 120 mg 240 mg (2 x 120 mg) PO BID #180 11/07/23 capsule,extended release 12 hr caps metformin 500 mg tablet 1,000 mg (2 x 500 mg) PO BID #360 11/07/23 tabs metoprolol succinate 50 mg 50 mg PO DAILY #90 tabs 11/07/23 tablet,extended release 24 hr nitroglycerin 0.4 mg sublingual 0.4 mg sublingual Q5-15M PRN chest 11/07/23 tablet pain #90 tabs Allergies Allergy/AdvReac Type Severity Reaction Status Date / Time Sulfa (Sulfonamide Allergy Mild RASH Verified 11/10/23 16:10 Antibiotics) Review of Systems Constitutional Constitutional: Reports system reviewed and no additional complaints, except as documented ENT Ears, Nose, Mouth, and Throat: Reports system reviewed and no additional complaints, except as documented Cardiovascular Cardiovascular: Reports system reviewed and no additional complaints, except as documented Respiratory Respiratory: Reports system reviewed and no additional complaints, except as documented Gastrointestinal Gastrointestinal: Reports system reviewed and no additional complaints, except as documented Integumentary/Breasts Skin/Breast: Reports system reviewed and no additional complaints, except as documented Hematologic/Lymphatic On Anticoagulants: Yes Patient History Medical History Acute kidney injury Appendicitis with perforation Vertigo Sedentary lifestyle Stage II pressure ulcer of sacral region (~02/2023) Hyperlipidemia Thyroid nodule Incontinence Breast screening Abnormal mammogram of left breast NSTEMI (non-ST elevated myocardial infarction) (09/2018) Recent heart attack Coronary artery disease Osteopenia (05/20/14) Knee osteoarthritis Hypertension (~2011) Diabetes mellitus (~2011) Rheumatoid arthritis Colon polyps (08/31/14) Surgical History History of bilateral knee replacement (2009) History of colonoscopy with polypectomy (08/31/14) History of left cataract surgery (03/23/15) History of right cataract surgery (04/06/15) Anesthesia History of knee replacement History of knee replacement Status post delivery (12/21/78) Family History Brother Drowning Father Heart disease Mother Diabetes mellitus Sister Bone cancer Sister Bone cancer Social History marital status: household members: children Smoking Status: Never smoker alcohol intake: current substance use type: does not use Smoking Status: Never smoker alcohol intake frequency: holidays/special occasions only Substance Use Type: does not use Exam Initial Vital Signs Initial Vital Signs: Vital Signs Temperature 99.1 F 11/10/23 14:25 Pulse Rate 136 H 11/10/23 14:25 Respiratory Rate 20 11/10/23 14:25 Blood Pressure 103/55 L 11/10/23 14:25 Pulse Oximetry 98 11/10/23 14:25 Oxygen Delivery Method Room Air 11/10/23 14:25 Const General: cooperative and comfortable HENMT Head: normal to inspection and normocephalic Resp Effort & Inspection: normal respiratory effort Auscultation: clear to auscultation bilaterally Cardio Rate: tachycardic Rhythm: abnormal rhythm Skin General: no rashes or lesions noted Neuro General: patient alert, patient awake, patient oriented x3 and moves all extremities Extrem General: edema Course Orders Ordered: ED Orders 11/10/23 14:29 EKG-12 Lead Stat 11/10/23 14:30 XR chest 1V Stat 11/10/23 14:31 Complete Blood Count AUTO DIFF Stat Comprehensive Metabolic Panel Stat Lipase Stat Magnesium Stat Troponin & CK Cardiac Panel Stat DILTIAZEM (Diltiazem 125 Mg/125 Ml-D5w) 125 mg in 125 mls @ 5 mls/hr IV TITRATE RENY; Protocol Last Titration: 11/10/23 16:18 Dose: 10 mg/hr, 10 mls/hr Documented By: Admin: 11/10/23 15:46 Dose: 5 mg/hr, 5 mls/hr Documented By: JOHN Discontinued Medications Metoprolol Tartrate (Metoprolol Ir 25 Mg Tablet) 25 mg PO NOW ONE Stop: 11/10/23 14:44 Last Admin: 11/10/23 14:57 Dose: 25 mg Documented By: JOHN Vital Signs Vital signs: Vital Signs - 8 hr 11/10/23 14:25 11/10/23 14:34 11/10/23 14:35 Temperature 99.1 F Pulse Rate 136 H 147 H 151 H Respiratory Rate 20 Blood Pressure 103/55 L Pulse Oximetry 98 98 98 Oxygen Delivery Method Room Air Room Air 11/10/23 14:35 11/10/23 15:00 11/10/23 15:00 Temperature Pulse Rate 160 H Respiratory Rate 20 Blood Pressure 103/55 L 113/63 Pulse Oximetry 98 Oxygen Delivery Method Room Air 11/10/23 15:15 11/10/23 15:15 11/10/23 15:30 Temperature Pulse Rate 155 H 154 H Respiratory Rate 20 29 H Blood Pressure 116/73 Pulse Oximetry 98 98 Oxygen Delivery Method Room Air 11/10/23 15:30 11/10/23 15:45 11/10/23 15:45 Temperature Pulse Rate 141 H Respiratory Rate 20 Blood Pressure 117/69 112/62 Pulse Oximetry 97 Oxygen Delivery Method 11/10/23 15:54 11/10/23 15:54 11/10/23 15:57 Temperature Pulse Rate 138 H 138 H Respiratory Rate 19 15 Blood Pressure 94/55 L Pulse Oximetry 98 98 Oxygen Delivery Method Room Air 11/10/23 15:57 11/10/23 16:00 11/10/23 16:00 Temperature Pulse Rate 132 H Respiratory Rate 24 Blood Pressure 94/56 L 97/53 L Pulse Oximetry 97 Oxygen Delivery Method Room Air 11/10/23 16:03 11/10/23 16:03 11/10/23 16:07 Temperature Pulse Rate 135 H 135 H Respiratory Rate 26 H 22 Blood Pressure 102/66 Pulse Oximetry 97 97 Oxygen Delivery Method 11/10/23 16:07 11/10/23 16:09 11/10/23 16:09 Temperature Pulse Rate 133 H Respiratory Rate 15 Blood Pressure 114/87 126/100 H Pulse Oximetry 98 Oxygen Delivery Method 11/10/23 16:12 11/10/23 16:12 11/10/23 16:15 Temperature Pulse Rate 131 H 126 H Respiratory Rate 19 23 Blood Pressure 116/69 Pulse Oximetry 98 97 Oxygen Delivery Method Room Air 11/10/23 16:15 Temperature Pulse Rate Respiratory Rate Blood Pressure 105/61 Pulse Oximetry Oxygen Delivery Method Medical Decision Making Medical Records Medical records reviewed: Yes I reviewed the patient's medical records. Lab Data Lab results reviewed: Yes I reviewed the patient's lab results. 11/10/23 14:31 11/10/23 14:31 Labs: Lab Results 11/10/23 Range/Units 14:31 WBC 11.8 H (4.5-11.0) X10^3/uL RBC 4.46 (4.0-5.2) X10^6/uL Hgb 12.0 (12.0-16.0) g/dL Hct 37.0 (36-46) % MCV 82.8 (80-100) fL MCH 26.9 (26-34) PG MCHC 32.5 (30-36) % RDW 14.8 (11.6-14.8) % Plt Count 316 (150-400) X10^3/uL Neut % (Auto) 71.1 (50-75) % Lymph % (Auto) 18.9 L (25-40) % [place] % (Auto) 6.7 (3-14) % Eos % (Auto) 1.8 L (2-4) % Baso % (Auto) 1.5 (0-2) % Neut # (Auto) 8400 H (8298-3996) /uL Lymph # (Auto) 2200 (7397-0479) /uL [place] # (Auto) 800 (0-900) /uL Eos # (Auto) 200 (0-450) /uL Baso # (Auto) 200 H (0-100) /uL Sodium 138 (137-145) mmol/L Potassium 4.4 (3.4-5.1) mmol/L Chloride 102 (98-107) mmol/L Carbon Dioxide 25 (22-32) mmol/L BUN 34 H (7-17) mg/dL Creatinine 1.10 H (0.52-1.04) mg/dL Estimated GFR 54 L (>60) mL/min BUN/Creatinine Ratio 30.9 H (6-22) Glucose 177 H (80-110) mg/dL Calcium 9.6 (8.4-10.2) mg/dL Magnesium 2.3 (1.6-2.3) mg/dL Total Bilirubin 0.7 (0.2-1.3) mg/dL AST 20 (14-36) IU/L ALT 19 (<35) IU/L Alkaline Phosphatase 75 (38-126) U/L Total Creatine Kinase 43 (30-135) U/L Troponin I < 0.012 (0.01-0.034) ng/mL Total Protein 8.5 H (6.3-8.2) g/dL Albumin 4.3 (3.5-5.0) g/dL Globulin 4.2 H (1.7-4.1) g/dL Albumin/Globulin Ratio 1.0 (1.0-2.8) Lipase 166 (23-300) U/L Imaging Data Chest x-ray: Radiologist's Impression: PROCEDURE: XR CHEST 1V INDICATIONS: chest pain TECHNIQUE: One view of the chest was acquired. COMPARISON: [facility], , XR CHEST 1V, 10/23/2023, 16:21. FINDINGS: Surgical changes and devices: None. Lungs and pleura: Lungs are clear. No pleural effusions or pneumothorax. Mediastinum: Mediastinal contours appear normal. Heart size is mildly enlarged. Bones and chest wall: No suspicious bony lesions. Overlying soft tissues appear unremarkable. IMPRESSION: No acute cardiopulmonary abnormality is seen. ECG Data Attestation: I personally reviewed and interpreted this ECG as follows: Interpretation: Atrial fibrillation Ventricular rate of 149 Left axis deviation Normal QRS Nonspecific ST T wave changes MDM Narrative Medical decision making narrative: Patient was seen here in the emergency department approximately 9 days ago. She was discharged home on her home medication in atrial fibrillation but was relatively rate controlled. I saw her during that visit. She did not want cardioverted. She has had a follow-up with her primary doctor since then however there has been no confirmation that she was back into sinus rhythm. She has not been on any of her medications for the past 2 days to include her insulin and her apixaban and also her AFib rate control medications. This is because the individual who normally helps with her medications has been on vacation. It seems that she had a sudden increase in her heart rate earlier today. It did improve with Cardizem by EMS. She did receive nitro by EMS as well for chest discomfort. She does have nonspecific ST changes on her EKG but I suspect that this is rate related changes. She was given metoprolol initially upon arrival to the ER. This is what worked for her a couple days ago. She had no response to the metoprolol. She was started on a Cardizem drip. Her heart rate did improve. Since the patient has been off of her medications for the past 2 days and I can not confirm that she has been in sinus rhythm for the past 9 days she has not a candidate for cardioversion. Will proceed with rate control. Patient does require admission to the hospital. Discussed the case with Dr. Solares who is the hospitalist on-call who will admit. Discussed the need for admission with the patient. She expressed understanding and agreement with plan. Discharge Plan Departure Patient Disposition: Admitted As Inpatient Clinical Impression: Atrial fibrillation with RVR Admit Date/Time: 11/10/23 16:18 Admit Provider: Richard Solares
--- NOTE | 2023-11-10 14:54 | PC.NURSE ---
PT reports having heart palpations but denies SOB, dizziness, or chest pain.
[2023-11-10] MEDS: METOPROLOL IR 25 MG TABLET PO (14:57)
[2023-11-10 14:59] LABS: Add Manual Diff / Slide Review NO; Basophils Absolute Auto 200 /uL (0-100); Basophils Percent Auto 1.5 % (0-2); Eosinophils Absolute Auto 200 /uL (0-450); Eosinophils Percent Auto 1.8 % (2-4); Lymphocytes Absolute Auto 2200 /uL (1100-4500); Lymphocytes Percent Auto 18.9 % (25-40); Mean Corpuscular HGB Conc 32.5 % (30-36); Mean Corpuscular Hemoglobin 26.9 PG (26-34); Mean Corpuscular Volume 82.8 fL (80-100); Monocytes Absolute Auto 800 /uL (0-900); Monocytes Percent Auto 6.7 % (3-14); Neutrophils Absolute Auto 8400 /uL (1500-7000); Neutrophils Percent Auto 71.1 % (50-75); Platelet Count 316 X10^3/uL (150-400); Red Blood Cell Count 4.46 X10^6/uL (4.0-5.2); Red Cell Distribution Width 14.8 % (11.6-14.8); White Blood Cell Count 11.8 X10^3/uL (4.5-11.0)
[2023-11-10 15:02] LABS: Alanine Aminotransferase 19 IU/L (<35); Albumin 4.3 g/dL (3.5-5.0); Alkaline Phosphatase 75 U/L (38-126); Aspartate Aminotransferase 20 IU/L (14-36); BUN Creatinine Ratio 30.9 (6-22); Bilirubin Total 0.7 mg/dL (0.2-1.3); Blood Urea Nitrogen 34 mg/dL (7-17); Calcium 9.6 mg/dL (8.4-10.2); Carbon Dioxide 25 mmol/L (22-32); Chloride 102 mmol/L (98-107); Estimated Glomerular Filt Rate 54 mL/min (>60); Globulin 4.2 g/dL (1.7-4.1); Glucose 177 mg/dL (80-110); HEMOLYSIS < 15 (0-50); Lipase 166 U/L (23-300); Magnesium 2.3 mg/dL (1.6-2.3); Potassium 4.4 mmol/L (3.4-5.1); Sodium 138 mmol/L (137-145); Total Protein 8.5 g/dL (6.3-8.2)
--- NOTE | 2023-11-10 15:05 | PC.NURSE ---
Pt states she has a wound on her buttocks and that her brief was wet. Pt pants and soiled brief removed and patient rolled to side to assess buttocks. Pt has bilateral redness on her buttocks which is blanchable and closed/scabbed over. Pt's intergluteal cleft is sore and reddened. Steffany care performed and new barrier cream applied to cleft and buttocks.
[2023-11-10 15:20] LABS: Creatine Kinase 43 U/L (30-135)
[2023-11-10 15:32] LABS: Troponin I < 0.012 ng/mL (0.01-0.034)
[2023-11-10] MEDS: DILTIAZEM 125 MG/125 ML PIGGYBACK IV (15:46)
--- NOTE | 2023-11-10 16:23 | PM.HP.1 ---
History of Present Illness History of Present Illness Date Patient Seen: 11/10/23 Time Patient Seen: 16:23 Date of Onset of Symptoms: 11/10/23 Chief complaint: CP/AFIB Narrative: The patient is a 73-year-old female with a history of atrial fibrillation who is on chronic apixaban. She also has a history of insulin-dependent diabetes. She presented today with palpitations and was found to be in atrial fibrillation with rapid response. She notes she has not been taking medications for about 2 days. This relates to her neighbor who usually helps her having been on vacation. Today she developed acute dyspnea and chest pressure with palpitations and presented to the ED. This was going on at home for several hours before she called for help. EMS did bring her into the emergency department with diltiazem giving EN route. The patient had declined cardioversion in the past. She was given IV metoprolol in the emergency department with minimal effect. She was then started on a diltiazem bolus and drip with better rate control. She has no neurologic symptoms. She also has no evidence of acute coronary syndrome. She has had some intermittent chest pain. This has been transient. She does have a prescription for sublingual nitroglycerin which has not been filled. She denies recent cardiac testing. Her initial troponin was normal and her electrocardiogram was nonacute in terms of ST depressions. [facility] Medical History Acute kidney injury Appendicitis with perforation Vertigo Sedentary lifestyle Stage II pressure ulcer of sacral region (~02/2023) Hyperlipidemia Thyroid nodule Incontinence Breast screening Abnormal mammogram of left breast NSTEMI (non-ST elevated myocardial infarction) (09/2018) Recent heart attack Coronary artery disease Osteopenia (05/20/14) Knee osteoarthritis Hypertension (~2011) Diabetes mellitus (~2011) Rheumatoid arthritis Colon polyps (08/31/14) Surgical History History of bilateral knee replacement (2009) History of colonoscopy with polypectomy (08/31/14) History of left cataract surgery (03/23/15) History of right cataract surgery (04/06/15) Anesthesia History of knee replacement History of knee replacement Status post delivery (12/21/78) Family History Brother Drowning Father Heart disease Mother Diabetes mellitus Sister Bone cancer Sister Bone cancer Social History marital status: household members: children Smoking Status: Never smoker alcohol intake: current substance use type: does not use Meds Home Medications and Allergies Home Medications Medication Instructions Recorded Confirmed Type Parking Permit... #1 ea 09/08/20 11/10/23 Rx pen needle, diabetic 29 gauge x #100 ea 03/09/22 11/10/23 Rx 1/2 (Comfort EZ Pen [place]) insulin lispro 100 unit/mL 1 sliding scale dose SUBCUT 04/24/23 11/10/23 Rx subcutaneous pen (Humalog KwikPen USEASDIRECTD #15 mL (U-100) Insulin) atorvastatin 80 mg tablet (Lipitor) 80 mg PO QPM 06/02/23 11/10/23 History insulin glargine 100 unit/mL (3 40 unit SUBCUT QAM 06/02/23 11/10/23 History mL) subcutaneous pen (Lantus Solostar U-100 Insulin) apixaban 5 mg tablet (Eliquis) 5 mg PO BID #180 tabs 10/19/23 11/10/23 Rx blood sugar diagnostic (True #100 strips 10/30/23 11/10/23 Rx Metrix Glucose Test Strip) clopidogrel 75 mg tablet 75 mg PO QAM #90 tabs 11/07/23 11/10/23 Rx diltiazem HCl 120 mg 240 mg (2 x 120 mg) PO BID #180 11/07/23 11/10/23 Rx capsule,extended release 12 hr caps metformin 500 mg tablet 1,000 mg (2 x 500 mg) PO BID #360 11/07/23 11/10/23 Rx tabs metoprolol succinate 50 mg 50 mg PO DAILY #90 tabs 11/07/23 11/10/23 Rx tablet,extended release 24 hr nitroglycerin 0.4 mg sublingual 0.4 mg sublingual Q5-15M PRN chest 11/07/23 11/10/23 Rx tablet pain #90 tabs cefpodoxime 200 mg tablet 400 mg PO BID 11/10/23 11/10/23 History empagliflozin 25 mg tablet 25 mg PO DAILY 11/10/23 11/10/23 History (Jardiance) Allergies Allergy/AdvReac Type Severity Reaction Status Date / Time Sulfa (Sulfonamide Allergy Mild RASH Verified 11/10/23 16:10 Antibiotics) Review of Systems Review of Systems Narrative: All else reviewed and otherwise unremarkable except as noted in history and physical. Exam Vital Signs (past 8 hours): - 11/10/23 14:25 11/10/23 14:34 11/10/23 14:35 Temperature 99.1 F Pulse Rate 136 H 147 H 151 H Respiratory Rate 20 Blood Pressure 103/55 L Pulse Oximetry 98 98 98 Oxygen Delivery Method Room Air Room Air 11/10/23 14:35 11/10/23 15:00 11/10/23 15:00 Temperature Pulse Rate 160 H Respiratory Rate 20 Blood Pressure 103/55 L 113/63 Pulse Oximetry 98 Oxygen Delivery Method Room Air 11/10/23 15:15 11/10/23 15:15 11/10/23 15:30 Temperature Pulse Rate 155 H 154 H Respiratory Rate 20 29 H Blood Pressure 116/73 Pulse Oximetry 98 98 Oxygen Delivery Method Room Air 11/10/23 15:30 11/10/23 15:45 11/10/23 15:45 Temperature Pulse Rate 141 H Respiratory Rate 20 Blood Pressure 117/69 112/62 Pulse Oximetry 97 Oxygen Delivery Method 11/10/23 15:54 11/10/23 15:54 11/10/23 15:57 Temperature Pulse Rate 138 H 138 H Respiratory Rate 19 15 Blood Pressure 94/55 L Pulse Oximetry 98 98 Oxygen Delivery Method Room Air 11/10/23 15:57 11/10/23 16:00 11/10/23 16:00 Temperature Pulse Rate 132 H Respiratory Rate 24 Blood Pressure 94/56 L 97/53 L Pulse Oximetry 97 Oxygen Delivery Method Room Air 11/10/23 16:03 11/10/23 16:03 11/10/23 16:07 Temperature Pulse Rate 135 H 135 H Respiratory Rate 26 H 22 Blood Pressure 102/66 Pulse Oximetry 97 97 Oxygen Delivery Method 11/10/23 16:07 11/10/23 16:09 11/10/23 16:09 Temperature Pulse Rate 133 H Respiratory Rate 15 Blood Pressure 114/87 126/100 H Pulse Oximetry 98 Oxygen Delivery Method 11/10/23 16:12 11/10/23 16:12 11/10/23 16:15 Temperature Pulse Rate 131 H 126 H Respiratory Rate 19 23 Blood Pressure 116/69 Pulse Oximetry 98 97 Oxygen Delivery Method Room Air 11/10/23 16:15 Temperature Pulse Rate Respiratory Rate Blood Pressure 105/61 Pulse Oximetry Oxygen Delivery Method Oxygen Delivery Method Room Air Narrative Exam Narrative: Alert, no acute distress, fluent speech. Normocephalic skull, anicteric sclera, EOMI. Oropharynx unremarkable, no droop. Neck supple, midline trachea, no adenopathy. Lungs are clear with normal rate and effort. Heart is irregular and tachycardic, no murmur appreciated. Abdomen is soft, nontender. Extremities are free of edema with good pedal and radial pulses. Skin is free of rash or lesions. Joints are unremarkable, no deformities. Motor strength is 5 5 all extremities. Cranial nerves are grossly intact. Objective ECG Impression: AF + RVR. No acute changes (ST segments). Imaging Chest x-ray: My impression: Clear lung veras. Some mild cephalization, and a small amount of fluid in the fissure on the right side. Radiologist's impression: Unremarkable. Labs 11/10/23 14:31 11/10/23 14:31 Labs: Laboratory Results - last 24 hr 11/10/23 14:31 WBC 11.8 H RBC 4.46 Hgb 12.0 Hct 37.0 MCV 82.8 MCH 26.9 MCHC 32.5 RDW 14.8 Plt Count 316 Neut % (Auto) 71.1 Lymph % (Auto) 18.9 L [place] % (Auto) 6.7 Eos % (Auto) 1.8 L Baso % (Auto) 1.5 Neut # (Auto) 8400 H Lymph # (Auto) 2200 [place] # (Auto) 800 Eos # (Auto) 200 Baso # (Auto) 200 H Sodium 138 Potassium 4.4 Chloride 102 Carbon Dioxide 25 BUN 34 H Creatinine 1.10 H Estimated GFR 54 L BUN/Creatinine Ratio 30.9 H Glucose 177 H Calcium 9.6 Magnesium 2.3 Total Bilirubin 0.7 AST 20 ALT 19 Alkaline Phosphatase 75 Total Creatine Kinase 43 Troponin I < 0.012 Total Protein 8.5 H Albumin 4.3 Globulin 4.2 H Albumin/Globulin Ratio 1.0 Lipase 166 Assessment & Plan Assessment & Plan narrative: 1. Atrial fibrillation with rapid response, present on admission and active. 2. Medication noncompliance, present on admission and active. 3. Diabetes mellitus 2, insulin dependent. Present on admission and active. 4. CAD with remote NSTEMI (09/2018), stable. Plan: -Will use a diltiazem drip , restart PO medications (metoprolol and Diltiazem), and Apixiban -Hold PO DM medication and use Lantus and correctional lispro. Full code Son is proxy decision maker. Admitted inpatient status, anticipate 2 MN of hospital care will be medically necessary. Time Spent With Patient Time with patient: 30 to 49 minutes with 50% spent counseling/coordinating care Quality MIPS - Admit I confirm the patient?s Advance Care Plan is present, Code status is documented, Surrogate decision maker is in patient?s record [If Yes, STOP here]: Yes MIPS - Meds 'Current medications' to include all prescriptions, [id number] products, herbals, cannabis/cannabidiol products, and vitamin/mineral/dietary (nutritional) supplements. I have utilized all available resources to obtain, update, or review the patient?s current medications. [If Yes, STOP here]: Yes
--- NOTE | 2023-11-10 16:58 | PC.NURSE ---
Pt is sitting up in bed, talking to her family who is at bedside. Pt continues to deny having any shortness of breath or chest pain. Pt reports I had a bit of chest pain awhile ago, but it come and gone like Venessa Fuentes. Pt laughing with her family.
[2023-11-10] MEDS: ATORVASTATIN 20 MG TABLET 80 MG PO (17:27)
[2023-11-10 18:04] LABS: Troponin I 0.303 ng/mL (0.01-0.034)
[2023-11-10] MEDS: METOPROLOL ER 50 MG TABLET PO (19:46)
[2023-11-10] MEDS: CLOPIDOGREL 75 MG TABLET PO (19:46)
[2023-11-10] MEDS: DEXTROSE 5%-0.9% NS 1,000 ML 100 ML IV (19:47)
[2023-11-10] MEDS: APIXABAN 5 MG TABLET PO (21:05)
[2023-11-10] MEDS: dilTIAZem CD 120 MG CAP 240 MG PO (21:05)
[2023-11-10] MEDS: INSULIN LISPRO 100 UNIT/ML 3ML VIAL SUBCUT (21:06)
[2023-11-10] MEDS: ACETAMINOPHEN 325 MG TABLET 650 MG PO (22:30)
[2023-11-11] VITALS (67 sets, daily range): BP systolic 72–162; BP diastolic 50–77; PULSE 39–110; RESP 4–47; TEMP 36.3–37.1; O2SAT 84–100
--- NOTE | 2023-11-11 04:11 | PC.NURSE ---
Pt. admitted at 1910, arrived via stretcher and stood up to transfer from stretcher to bed. Pt. arrived with Dilt. gtt of 10mg/hr. Pt. is alert and oriented and oriented to bed and call light use.
[2023-11-11] MEDS: DEXTROSE 5%-0.9% NS 1,000 ML 100 ML IV ×2 (05:57→16:09)
[2023-11-11 06:50] LABS: Add Manual Diff / Slide Review NO; Basophils Absolute Auto 100 /uL (0-100); Basophils Percent Auto 0.7 % (0-2); Eosinophils Absolute Auto 200 /uL (0-450); Eosinophils Percent Auto 2.8 % (2-4); Hematocrit 29.6 % (36-46); Lymphocytes Absolute Auto 1700 /uL (1100-4500); Lymphocytes Percent Auto 20.3 % (25-40); Mean Corpuscular HGB Conc 33.8 % (30-36); Mean Corpuscular Hemoglobin 27.6 PG (26-34); Mean Corpuscular Volume 81.9 fL (80-100); Monocytes Absolute Auto 900 /uL (0-900); Monocytes Percent Auto 10.5 % (3-14); Neutrophils Absolute Auto 5600 /uL (1500-7000); Neutrophils Percent Auto 65.7 % (50-75); Platelet Count 258 X10^3/uL (150-400); Red Blood Cell Count 3.62 X10^6/uL (4.0-5.2); Red Cell Distribution Width 14.8 % (11.6-14.8); White Blood Cell Count 8.6 X10^3/uL (4.5-11.0)
[2023-11-11 07:23] LABS: BUN Creatinine Ratio 33.7 (6-22); Blood Urea Nitrogen 31 mg/dL (7-17); Calcium 8.4 mg/dL (8.4-10.2); Carbon Dioxide 23 mmol/L (22-32); Chloride 104 mmol/L (98-107); Estimated Glomerular Filt Rate > 60 mL/min (>60); Glucose 233 mg/dL (80-110); HEMOLYSIS < 15 (0-50); Sodium 134 mmol/L (137-145)
--- NOTE | 2023-11-11 07:46 | DI.ECHO.S_ITS ---
[facility]---------+ [facility] +---------+ : : [address] : : : : [id number] : : : : Phone: [phone]+ Echocardiogram Report + + :Name: HENOK ARCE Study Date: 11/12/2023 Height: 62 in : :[facility] ReadingLocation: Weight: 234 lb: : Gender: Female BSA: 2.0 m2 : :: 1950 Age: 73 yrs BP: 97/51 mmHg: :Reason For Study: Elevated Troponin : :Ordering Physician: EMIL, : :BRISEIDA Fowler Performed By: Eloina Duke : :Referring: BRISEIDA STEIN : + + Interpretation Summary Technically difficult study. Mild concentric left ventricular hypertrophy with ejection fraction 65-70%. The left atrium is moderately dilated. The right atrium is mildly dilated. The boprosthetic aortic valve is well-seated. Mild to moderate aortic regurgitation. Moderate to severe mitral annular calcification. Moderate to severe mitral stenosis. The mitral valve mean gradient is 9.0 mmHg. Mild tricuspid regurgitation. The right ventricular systolic pressure is estimated to be at least 40 mmHg based on an estimated right atrial pressure of 3 mm Hg. Comparison is made with the echocardiogram of 06/05/2023, aortic regurgitation and mitral stenosis have progressed. Procedure: A two-dimensional transthoracic echocardiogram with color flow and Doppler was performed. The study quality was technically difficult. Definity was not used due to history of possible allergic reaction. Comparison is made with the echocardiogram of 06/05/2023. The patient was in atrial fibrillation with heart rates between 59-72 bpm during the exam. Left Ventricle: There is mild concentric left ventricular hypertrophy. The ejection fraction is estimated to be 65-70%. There are no focal wall motion abnormalities. There are no obvious focal wall motion abnormalities noted but poor endocardial definition reduces the sensitivity for the detection of such. Diastolic function could not be accurately assessed due to confounding valvular disease. Right Ventricle: The right ventricle grossly appears normal in size with probable normal systolic function. Atria: The left atrium is moderately dilated. The right atrium is mildly dilated. There is no Doppler evidence for an interatrial shunt. Mitral Valve: The mitral valve leaflets are moderately calcified. There is moderate to severe mitral annular calcification. There is moderate to severe mitral stenosis. The mitral valve mean gradient is 9.0 mmHg. There is trace mitral regurgitation. Aortic Valve: There is a bioprosthetic aortic valve. The prosthetic aortic valve is well-seated. The peak aortic velocity is 1.8 m/sec. The aortic valve mean gradient is 18 mmHg. There is mild to moderate aortic regurgitation. Tricuspid Valve: The tricuspid valve is not well visualized, but is grossly normal. There is mild tricuspid regurgitation. The right ventricular systolic pressure is estimated to be at least 40 mmHg based on an estimated right atrial pressure of 3 mm Hg. Pulmonic Valve: The pulmonic valve leaflets are thin and pliable; valve motion is normal. There is no pulmonic valvular regurgitation. Great Vessels: The dimensions of the ascending aorta are normal. The IVC is of normal diameter and collapses greater than 50% with a sniff. This suggests a low right atrial pressure of 3 mm Hg. Pericardium/ Pleura There is no pericardial effusion. There is no pleural effusion. MMode/2D Measurements & Calculations LVIDd: 4.3 cm LVOT diam: 2.0 cm LVIDs: 2.7 cm asc Aorta Diam: 3.7 cm FS: 35.7 % Ao Arch Diam (Prox Trans): 3.0 cm IVSd: 1.1 cm LVPWd: 1.3 cm LV florez. diameter/BSA (cm/m^2): 2.1 LV sys. diameter/BSA (cm/m^2): 1.3 LA A2 area: 27.2 cm2 RA long axis: 5.7 cm LA A4 area: 26.2 cm2 RA area: 23.7 cm2 LA length (vol): 5.9 cm RA vol: 83.3 ml LA vol: 101.8 ml RA : 40.8 ml/m2 LA vol index: 49.8 ml/m2 IVC diam: 1.6 cm RVD1 (basal): 3.8 cm TAPSE: 1.7 cm Doppler Measurements & Calculations Ao V2 max: 271.3 cm/sec LVOT Max Young: 86.1 cm/sec Ao V2 mean: 204.9 cm/sec LV V1 max P.0 mmHg Ao max P.5 mmHg LV V1 VTI: 22.1 cm Ao mean P.0 mmHg BRIAN(I,D): 1.1 cm2 Ao V2 VTI: 62.4 cm BRIAN(V,D): 0.98 cm2 sev ratio: 0.35 BRIAN indexed to BSA (cm^2/m^2): 0.54 AI P1/2t: 584.3 msec AI dec slope: 206.5 cm/sec2 MV E max young: 188.2 cm/sec TR max young: 304.1 cm/sec MV A max young: 0.52 cm/sec TR max P.0 mmHg MV E/A: 361.9 PA V2 max: 90.6 cm/sec Med Peak E' Young: 4.4 cm/sec PA V2 mean: 70.3 cm/sec E/E' med: 43.1 PA mean P.1 mmHg Lat Peak E' Young: 3.6 cm/sec PA pr(Accel): 41.3 mmHg E/E' lat: 52.1 E/e' average: 47.6 MV dec time: 0.53 sec MVA(VTI): 0.96 cm2 MV V2 mean: 130.2 cm/sec SV(LVOT): 68.5 ml MV mean P.0 mmHg MV V2 VTI: 71.1 cm Electronically signed by: Alexus Baez on Reading Physician:11/12/2023 01:00 PM
[2023-11-11] MEDS: INSULIN LISPRO 100 UNIT/ML 3ML VIAL SUBCUT ×4 (08:03→20:49)
--- NOTE | 2023-11-11 08:38 | PM.PN.1 ---
Subjective Subjective Interval history: Feeling better today, off Diltiazem drip. No CP or dyspnea. Elevated troponin. Out of bed and Physical therapy. Exam Vital Signs (past 8 hours): - 11/11/23 00:45 11/11/23 01:00 11/11/23 01:00 Temperature Pulse Rate 102 H 106 H Respiratory Rate 16 19 Blood Pressure 112/51 L Pulse Oximetry 96 96 Oxygen Flow Rate 11/11/23 01:15 11/11/23 01:30 11/11/23 01:30 Temperature Pulse Rate 107 H 92 H Respiratory Rate 22 20 Blood Pressure 106/73 Pulse Oximetry 97 97 Oxygen Flow Rate 11/11/23 01:45 11/11/23 02:00 11/11/23 02:02 Temperature Pulse Rate 88 84 Respiratory Rate 16 20 Blood Pressure 102/54 L Pulse Oximetry 97 96 Oxygen Flow Rate 11/11/23 02:02 11/11/23 02:15 11/11/23 02:30 Temperature Pulse Rate 80 82 81 Respiratory Rate 18 13 22 Blood Pressure Pulse Oximetry 97 95 97 Oxygen Flow Rate 11/11/23 02:31 11/11/23 02:31 11/11/23 02:45 Temperature Pulse Rate 79 74 Respiratory Rate 23 20 Blood Pressure 92/52 L Pulse Oximetry 97 84 L Oxygen Flow Rate 11/11/23 03:00 11/11/23 03:15 11/11/23 03:30 Temperature Pulse Rate 74 73 72 Respiratory Rate 18 18 13 Blood Pressure Pulse Oximetry 99 97 96 Oxygen Flow Rate 11/11/23 03:45 11/11/23 04:00 11/11/23 04:09 Temperature Pulse Rate 70 76 75 Respiratory Rate 12 14 19 Blood Pressure Pulse Oximetry 96 98 Oxygen Flow Rate 11/11/23 04:09 11/11/23 04:15 11/11/23 04:30 Temperature Pulse Rate 69 70 Respiratory Rate 20 18 Blood Pressure 102/55 L Pulse Oximetry 97 Oxygen Flow Rate 11/11/23 04:30 11/11/23 04:45 11/11/23 05:00 Temperature Pulse Rate 72 78 Respiratory Rate 15 22 Blood Pressure 97/53 L Pulse Oximetry 93 91 Oxygen Flow Rate 11/11/23 05:00 11/11/23 05:15 11/11/23 05:30 Temperature Pulse Rate 78 75 Respiratory Rate 25 H 20 Blood Pressure 105/59 L Pulse Oximetry 96 97 Oxygen Flow Rate 11/11/23 05:30 11/11/23 05:45 11/11/23 06:00 Temperature Pulse Rate 76 77 Respiratory Rate 21 13 Blood Pressure 104/50 L Pulse Oximetry 97 Oxygen Flow Rate 11/11/23 06:00 11/11/23 06:13 11/11/23 06:15 Temperature 97.8 F Pulse Rate 77 74 Respiratory Rate 13 21 Blood Pressure 100/63 100/63 Pulse Oximetry 97 98 Oxygen Flow Rate 0 11/11/23 06:30 11/11/23 06:30 11/11/23 06:45 Temperature Pulse Rate 76 74 Respiratory Rate 19 20 Blood Pressure 118/55 L Pulse Oximetry 98 98 Oxygen Flow Rate 11/11/23 07:00 11/11/23 07:01 11/11/23 07:01 Temperature Pulse Rate 71 71 Respiratory Rate 19 18 Blood Pressure 107/53 L Pulse Oximetry 98 97 Oxygen Flow Rate 11/11/23 07:15 11/11/23 07:30 11/11/23 07:31 Temperature Pulse Rate 71 72 72 Respiratory Rate 21 17 22 Blood Pressure Pulse Oximetry 98 99 98 Oxygen Flow Rate 11/11/23 07:31 11/11/23 07:45 11/11/23 08:00 Temperature Pulse Rate 72 Respiratory Rate 14 Blood Pressure 107/56 L 108/58 L Pulse Oximetry 98 Oxygen Flow Rate 11/11/23 08:00 Temperature 98.8 F Pulse Rate 76 Respiratory Rate 22 Blood Pressure Pulse Oximetry 100 Oxygen Flow Rate 0 Oxygen Delivery Method Room Air Oxygen Flow Rate 0 Narrative Exam Narrative: NAD, fluent speech Lungs clear with normal rate Heart irregular at 70 BPM No abdomen tenderness No leg edema Objective Labs 11/11/23 06:44 11/11/23 06:44 Labs: Laboratory Results - last 24 hr 11/10/23 11/10/23 11/11/23 14:31 17:10 06:44 WBC 11.8 H 8.6 RBC 4.46 3.62 L Hgb 12.0 10.0 L Hct 37.0 29.6 L MCV 82.8 81.9 MCH 26.9 27.6 MCHC 32.5 33.8 RDW 14.8 14.8 Plt Count 316 258 Neut % (Auto) 71.1 65.7 Lymph % (Auto) 18.9 L 20.3 L [place] % (Auto) 6.7 10.5 Eos % (Auto) 1.8 L 2.8 Baso % (Auto) 1.5 0.7 Neut # (Auto) 8400 H 5600 Lymph # (Auto) 2200 1700 [place] # (Auto) 800 900 Eos # (Auto) 200 200 Baso # (Auto) 200 H 100 Sodium 138 134 L Potassium 4.4 4.0 Chloride 102 104 Carbon Dioxide 25 23 BUN 34 H 31 H Creatinine 1.10 H 0.92 Estimated GFR 54 L > 60 BUN/Creatinine Ratio 30.9 H 33.7 H Glucose 177 H 233 H Calcium 9.6 8.4 Magnesium 2.3 Total Bilirubin 0.7 AST 20 ALT 19 Alkaline Phosphatase 75 Total Creatine Kinase 43 Troponin I < 0.012 0.303 H* Total Protein 8.5 H Albumin 4.3 Globulin 4.2 H Albumin/Globulin Ratio 1.0 Lipase 166 PFSH Medical History Acute kidney injury Appendicitis with perforation Vertigo Sedentary lifestyle Stage II pressure ulcer of sacral region (~02/2023) Hyperlipidemia Thyroid nodule Incontinence Breast screening Abnormal mammogram of left breast NSTEMI (non-ST elevated myocardial infarction) (09/2018) Recent heart attack Coronary artery disease Osteopenia (05/20/14) Knee osteoarthritis Hypertension (~2011) Diabetes mellitus (~2011) Rheumatoid arthritis Colon polyps (08/31/14) Surgical History History of bilateral knee replacement (2009) History of colonoscopy with polypectomy (08/31/14) History of left cataract surgery (03/23/15) History of right cataract surgery (04/06/15) Anesthesia History of knee replacement History of knee replacement Status post delivery (12/21/78) Family History Brother Drowning Father Heart disease Mother Diabetes mellitus Sister Bone cancer Sister Bone cancer Social History marital status: household members: children Smoking Status: Never smoker alcohol intake: current substance use type: does not use Assessment & Plan Assessment & Plan narrative: 1. Atrial fibrillation with rapid response, present on admission and active. 2. Medication noncompliance, present on admission and active. 3. Diabetes mellitus 2, insulin dependent. Present on admission and active. 4. CAD with remote NSTEMI (09/2018) and LAD Stent 2019, stable. 5. TAVR 2020, present on admission and stable. Plan: -Weaned diltiazem drip , restarted PO medications (metoprolol and Diltiazem), and Apixiban -Hold PO DM medication and use Lantus and correctional lispro. -ECHO to assess LVEF. -OOB and increase activity. Quality VTE Deep Vein Thrombosis/Pulmonary Embolism Present on Admission: No
[2023-11-11] MEDS: APIXABAN 5 MG TABLET PO ×2 (09:34→20:40)
[2023-11-11] MEDS: METOPROLOL ER 50 MG TABLET PO (09:34)
[2023-11-11] MEDS: dilTIAZem CD 120 MG CAP 240 MG PO ×2 (09:34→20:40)
[2023-11-11] MEDS: CLOPIDOGREL 75 MG TABLET PO (09:34)
[2023-11-11] MEDS: INSULIN GLARGINE 100 UNIT/ML 3ML PEN 40 UNIT SUBCUT (09:35)
--- NOTE | 2023-11-11 09:54 | PC.NURSE ---
Pt refuses SCD's. states skin on my legs hurt. Pt on Eliquis and Plavix
--- NOTE | 2023-11-11 11:37 | CM.DANOTE ---
Initial DCP Assessment Visit Note Reviewed EMR and team rounds for pt's medical status and initial anticipated d/c needs. Met with pt at bedside to introduce self and role, pt found to be alert and oriented, able to discuss the events precipitating this admission, and plan to prevent having this occur again in the future. Her son, Eddie, is the primary contact, and is aware of pt's admission. He will also be available to transport her back home once she is medically cleared for d/c. Payor: Mina Burns PCP: Dr. Ruggiero Pt is a 73 year-old F who presented to the ED via EMS last evening due to sudden onset chest pain, shortness of breath, and palpitations. She is on metoprolol and apixaban at baseline, however has not taken her medications for the last 2-days because her neighbor was out of town, and this neighbor usually gives her her medications each day. Son, Eddie, resides in [place], and is very involved in pt's care needs and care coordination with healthcare. ED eval found her to be in Afib, and was started on a Diltiazem drip, restarted on her home meds, and was admitted to the floor for further eval/tx. DCP will continue to follow and assist with any evolving d/c needs. PT eval is pending. Discharge Planning/Care Management CM Discharge Assessment Start: 11/11/23 11:30 Freq: Status: Active Protocol: Document 11/11/23 11:30 DPL (Rec: 11/11/23 11:35 DPL [id number]) Discharge Planning Assessment Assigned Service Technician Copier SAYRA Bird Advance Directives? Yes Advance Directives on File No History Provided By Patient,Medical Record Expected Length of Stay 2 Has Patient been admitted in last 30 No days? Prior Living Arrangements House Household Members children Type of transporation used prior to Relies on Others admit Independent with ADL's No: Modified indpendent Is patient alert and oriented? Yes Needs Assistance With Managing Medications,Home Chores / Shopping Caregiver for Another No Comment N/A DME Already Rented / Owned FWW / Walker,Cane Patient/Family Preference Home with Home Health Comment No anticipated home d/c needs identified at this time. Barriers to Discharge No Discharge Plan Home Transportation Arrangement Likely son Eddie at d/c If patient plan is home with home health Yes : Has signed face to face form been completed? Whiteboard Updated in Patient Room with Yes name and ext. # of Service Technician Copier Review Status In Process Please Provide Date Initial DC 11/11/23 Assessment Was Performed
--- NOTE | 2023-11-11 13:56 | PT.IIE ---
Current Diagnoses Unspecified atrial fibrillation (11/10/23) Surgical History (Last Reviewed 11/10/23 @ 16:26 by Richard Solares MD) Anesthesia History of bilateral knee replacement (2009) History of colonoscopy with polypectomy (08/31/14) History of knee replacement History of knee replacement History of left cataract surgery (03/23/15) History of right cataract surgery (04/06/15) Status post delivery (12/21/78) Medical History (Last Reviewed 11/10/23 @ 16:26 by Richard Solares MD) Abnormal mammogram of left breast Acute kidney injury Appendicitis with perforation Breast screening Colon polyps (08/31/14) Coronary artery disease Diabetes mellitus (~2011) Hyperlipidemia Hypertension (~2011) Incontinence Knee osteoarthritis NSTEMI (non-ST elevated myocardial infarction) (09/2018) Osteopenia (05/20/14) Recent heart attack Rheumatoid arthritis Sedentary lifestyle Stage II pressure ulcer of sacral region (~02/2023) Thyroid nodule Vertigo Physical Therapy Inpatient Evaluation/Re-Eval M1 PT/OT-IP Prior Functional Status Start: 11/11/23 09:29 Freq: NEEDED Status: Active Protocol: Document 11/11/23 13:25 MB (Rec: 11/11/23 13:56 MB [id number]) Medical Review Prior Functional Status Medical History Reviewed Yes Diet/Fluid Consistency Mechanical Soft Communication Normal, hyperverbal Mobility and Gait Furniture walking in the house Activities of Daily Living and IADL's Bath cloth bathing Prior Functional Level (Other details) Pt states she cannot get into her tub. She does not use AD because there is no room in the house. Social History Household Members family,children Living Arrangements House Number of Floors (Floors) One Floor Number of Stairs To Enter/Railing? 2 steps and no rail to enter Home Environment Standard Height Toilet Home Equipment Four Wheel Walker,Straight Cane Employment Status Retired M2 PT-IP Current Condition Start: 11/11/23 09:29 Freq: NEEDED Status: Active Protocol: Document 11/11/23 13:25 MB (Rec: 11/11/23 13:56 MB [id number]) Physical Therapy Current Condition Current Condition Evaluation Date 11/11/23 Treatment Diagnosis CP and a-fib M3 PT-IP Subjective Start: 11/11/23 09:29 Freq: NEEDED Status: Active Protocol: Document 11/11/23 13:25 MB (Rec: 11/11/23 13:56 MB [id number]) Subjective Physical Therapy Visit Type Type Initial Evaluation Visit Start Time 13:25 Visit Stop Time 13:40 Number of FARM RANCHER Visits 0 Physical Therapy Visit Comments Patient Comments I'm ready to go back to bed. Therapy Pain Assessment Pain When Pain Assessed During Exercise Pain Present Pain Present Pain Reported Location Left knee Intensity 5 Scale Used Andersen-Cagle (Faces) Description Acute Pain Behaviors Calling Out,Facial Grimacing, Holding Area M4 PT-IP Mobility and Gait Start: 11/11/23 09:29 Freq: NEEDED Status: Active Protocol: Document 11/11/23 13:25 MB (Rec: 11/11/23 13:56 MB [id number]) PT-Bed Mobility Assessment Sit to Supine Sit to Supine Minimal Assistance,1 Person Assistance,Head of Bed Elevated,Bedrails PT-Transfer Assessment Sit to and From Stand Sit to and from Stand Contact Guard Assistance,1 Person Assistance,Use of Upper Extremities Equipment Transfer Assistive Device Gait Belt,Front Wheeled Walker Orthotic/Prosthetic Devices or Brace: No Transfers Transfer Destination Bed Transfer Technique Ambulation Transfer Ability Level of Assist Contact Guard Assistance,1 Person Assistance,Use of Upper Extremities Comments Mobility Comments PT manages IV pole, tele line and watches monitor. HR 67-112 BPM with mobility, 67 BPM at rest. RR also increases but pt does not appear dysneic or with increased breathing rate, nor does she report dyspnea. Gait Assessment Gait Gait Assistance Required: Minimum Assistance,1 Person Assist Distance (Feet) 20 Able to Maintain Weight Bearing Status Yes During Gait Assistive Devices Assistive Device Gait Belt,Front Wheeled Walker Orthotic/Prosthetic Devices or Brace: No Gait Deviations General Gait Pattern Decreased Stride Length, Decreased Feet Clearance, Flexed Trunk,Wide Based Gait Factors Limiting Gait Function Factors Limiting Gait Function Poor Balance,Poor Safety Awareness Comments Gait Comments Wide SIDNEY, constant cues to stay close to the bed so all lines will stay in reach and pt has trouble following commands, is hyperverbal PT-Balance Assessment Sitting Balance and Reactions Static Sitting Balance Ability Good Dynamic Sitting Balance Ability Good Standing Balance and Reactions Static Standing Balance Ability Good Dynamic Standing Balance Ability Fair Device Used RW M5 PT-IP Objective Assessments Start: 11/11/23 09:29 Freq: NEEDED Status: Active Protocol: Document 11/11/23 13:25 MB (Rec: 11/11/23 13:56 MB [id number]) Orientation Orientation/Cognition Level of Alertness Alert Orientation Name,Age,Birthday,Month,Year, Place,Situation Language Function Ability No Deficits Noted Safety Awareness Decreased Safety Awareness Memory Description No Deficits Noted Gross Range of Motion Upper Extremity ROM Assessment Within Functional Limits Lower Extremity ROM Assessment Within Functional Limits Strength Comments Strength Comments Pt does not tolerate MMT LEs and c/o knee pain when PT tries to assess knee extension strength M6 PT-IP Treatment Start: 11/11/23 09:29 Freq: NEEDED Status: Active Protocol: Document 11/11/23 13:25 MB (Rec: 11/11/23 13:56 MB [id number]) Physical Therapy Treatment Education Education Provided Safety M7 PT-IP Assessment and Plan Start: 11/11/23 09:29 Freq: NEEDED Status: Active Protocol: Document 11/11/23 13:25 MB (Rec: 11/11/23 13:56 MB [id number]) PT Summary Assessment and Plan Potential Rehabilitation Potential Fair Status of Condition at Evaluation Evolving Summary Impairments Pain,Strength,Balance,Bed Mobility,Transfers,Gait, Activity Tolerance Progress Towards Goals Slow Progress due to Activity Tolerance Assessment Summary Pt is a 73 y/o female presenting to hospital with CP and a-fib. She had recent hospitalization and short stay at SNF at the end of 2022. Pt lives at home with her son and grandsons. She is furniture walker and states there is no room for her ADs. She use to have bath aide assistance but they stopped. She cannot get into their tub shower and it does not appear that she has a lot of assistance from family for ADLs at home. Her son holds her hand to walk up the two steps. They have two rails that they bought that they have not put in. Recommend ongoing acute and post-acute PT, likely HH. Her HR is 67- 112 BPM with short mobility today with monitor reading a- fib. The monitor also reads high RR but pt neither looks nor feels [place]. Goals Transfer Goal Independent,Front Wheeled Walker,Four Wheeled Walker Gait Goal Independent,Front Wheel Walker ,Four Wheel Walker Gait Distance 75 Other Goals Pt sleeps in recliner at home so no bed mobility goal Pt will ascend and descend two steps with BOARD TURNER to allow safe home entry. Days to Meet Goals 5 Frequency of Treatment Frequency Of Treatment Once a Day Treatment Plan Physical Therapy Treatment Plan Transfer Training,Gait Training,Therapeutic Exercise, Balance Retraining,Discharge Planning,Hot or Cold Pack Weight Bearing Status Weight Bearing Status Weight Bear as Tolerated Recommendations To Nursing Amount of Assist Needed 1 Person Assist Discharge Recommendations PT Discharge Recommendations Home with 07/05 Assist Available,Home Health Transportation Needs at Discharge Private Vehicle
--- NOTE | 2023-11-11 14:23 | PC.NURSE ---
Addendum entered by Fernanda Gilliam R.N. 11/11/23 18:27: Around 1750, HR down to 49. Pt denied symptoms. Remains in Afib Original Note: Dr. Solares's plan for pt: pt will stay one more day and Dr. Solares will consult Dr. Rosario about possible echo and increasing troponin. Pt is Acute care, Tele on: Afib CVR, HR 70-80's. Pt denies CP or SOB
[2023-11-11] MEDS: ATORVASTATIN 20 MG TABLET 80 MG PO (16:15)
[2023-11-11] MEDS: ACETAMINOPHEN 325 MG TABLET 650 MG PO (20:48)
[2023-11-11] MEDS: NYSTATIN POWDER 15GM 1 APPLIC TOP (21:39)
[2023-11-12 03:08] VITALS: BP 97/51; PULSE 64; RESP 17; TEMP 36.8; O2SAT 95
[2023-11-12 05:57] LABS: Add Manual Diff / Slide Review NO; Basophils Absolute Auto 100 /uL (0-100); Basophils Percent Auto 0.8 % (0-2); Eosinophils Absolute Auto 200 /uL (0-450); Eosinophils Percent Auto 3.2 % (2-4); Hematocrit 29.8 % (36-46); Hemoglobin 9.9 g/dL (12.0-16.0); Lymphocytes Absolute Auto 1400 /uL (1100-4500); Lymphocytes Percent Auto 18.5 % (25-40); Mean Corpuscular HGB Conc 33.3 % (30-36); Mean Corpuscular Hemoglobin 27.5 PG (26-34); Mean Corpuscular Volume 82.6 fL (80-100); Monocytes Absolute Auto 600 /uL (0-900); Monocytes Percent Auto 7.9 % (3-14); Neutrophils Absolute Auto 5400 /uL (1500-7000); Neutrophils Percent Auto 69.6 % (50-75); Platelet Count 255 X10^3/uL (150-400); Red Cell Distribution Width 14.3 % (11.6-14.8); White Blood Cell Count 7.7 X10^3/uL (4.5-11.0)
[2023-11-12 06:07] LABS: BUN Creatinine Ratio 24.8 (6-22); Blood Urea Nitrogen 30 mg/dL (7-17); Calcium 8.8 mg/dL (8.4-10.2); Carbon Dioxide 25 mmol/L (22-32); Chloride 105 mmol/L (98-107); Estimated Glomerular Filt Rate 48 mL/min (>60); Glucose 233 mg/dL (80-110); HEMOLYSIS < 15 (0-50); Potassium 4.4 mmol/L (3.4-5.1); Sodium 135 mmol/L (137-145)
--- NOTE | 2023-11-12 06:20 | PC.NURSE ---
Pt alert and oriented to self/situation, forgetful, keeps repeating herself and asking am I upstairs, who's upstairs?. States she lives with her son and grandson but that they don't help with her hygiene because they are boys. pt on tele afib, heart rate at times down to the upper 50's. purewick external catheter on during the night because pt kept urinating on herself and her james area is red/yeasty. Pt now has order for nystatin powder.
[2023-11-12 07:00] VITALS: BP 144/72; PULSE 62; RESP 18; TEMP 36.7; O2SAT 95
[2023-11-12] MEDS: INSULIN LISPRO 100 UNIT/ML 3ML VIAL SUBCUT ×4 (08:04→20:59)
[2023-11-12] MEDS: INSULIN GLARGINE 100 UNIT/ML 3ML PEN 40 UNIT SUBCUT (08:04)
[2023-11-12] MEDS: METOPROLOL ER 50 MG TABLET PO (09:35)
[2023-11-12] MEDS: SODIUM CHLORIDE 0.9% FLUSH 10 ML IV ×2 (09:35→21:01)
[2023-11-12] MEDS: CLOPIDOGREL 75 MG TABLET PO (09:35)
[2023-11-12] MEDS: APIXABAN 5 MG TABLET PO ×2 (09:35→20:59)
[2023-11-12] MEDS: dilTIAZem CD 120 MG CAP 240 MG PO ×2 (09:35→20:59)
--- NOTE | 2023-11-12 10:26 | PC.NURSE ---
Patient up and went to the bathroom. She was repositioned onto her r.side and she is resting comfortably. Up for breakfast, she is a one person assist with the walker. RT will be doing an EKG on patient soon, it is possible that she may discharge today.
[2023-11-12 11:00] VITALS: BP 123/59; PULSE 62; RESP 17; TEMP 37.1; O2SAT 97
--- NOTE | 2023-11-12 11:14 | CM.DPNOTE ---
Addendum entered by SAYRA Solorzano 11/12/23 12:28: Alexandra from [facility] confirms they can accept pt for services. SL Original Note: DCP Note WORKFORCE DEVELOPMENT ASSISTANT reviewed EMR. Per provider in morning rounds, pt could potentially dc today pending input from blending tank tender. Agreeable to HH. PT rec HH, OT pending. Per records, Hx of referral to [facility]. WORKFORCE DEVELOPMENT ASSISTANT spoke with Britta, could likely accept again. WORKFORCE DEVELOPMENT ASSISTANT spoke with pt in room, resting in bed. Pt confirms lives home with son Eddie in [place], confirms he helps her/can transport her home when dc'd. Reports actually uses [facility], not [facility]. Agreeable to restarting [facility]. Reports no other CM needs at this time. WORKFORCE DEVELOPMENT ASSISTANT completed order for RN/PT/OT/bath aid and completed face to face. WORKFORCE DEVELOPMENT ASSISTANT lvm with Alexandra at [facility]. VICENTA Valdes kindly agreed to email referral to [facility] for resumption of care, CC Keisha to scan f2f into chart. Plan: pt to dc home with son when medically stable in POV, potentially today. [facility] reviewing, likely able to resume care, acceptance pending. CM team will continue to follow closely. SAYRA Solorzano
--- NOTE | 2023-11-12 12:10 | OT.IP.EVAL ---
Current Diagnoses Unspecified atrial fibrillation (11/10/23) Past Medical History (Last Reviewed 11/10/23 @ 16:26 by Richard Solares MD) Abnormal mammogram of left breast Acute kidney injury Appendicitis with perforation Breast screening Colon polyps (08/31/14) Coronary artery disease Diabetes mellitus (~2011) Hyperlipidemia Hypertension (~2011) Incontinence Knee osteoarthritis NSTEMI (non-ST elevated myocardial infarction) (09/2018) Osteopenia (05/20/14) Recent heart attack Rheumatoid arthritis Sedentary lifestyle Stage II pressure ulcer of sacral region (~02/2023) Thyroid nodule Vertigo Surgical History (Last Reviewed 11/10/23 @ 16:26 by Richard Solares MD) Anesthesia History of bilateral knee replacement (2009) History of colonoscopy with polypectomy (08/31/14) History of knee replacement History of knee replacement History of left cataract surgery (03/23/15) History of right cataract surgery (04/06/15) Status post delivery (12/21/78) Occupational Therapy Inpatient Evaluation/Re-Eval M1 PT/OT-IP Prior Functional Status Start: 11/11/23 09:29 Freq: NEEDED Status: Active Protocol: Document 11/12/23 12:19 CGR (Rec: 11/12/23 12:34 CGR [id number]) Medical Review Prior Functional Status Medical History Reviewed Yes Diet/Fluid Consistency Mechanical Soft Communication Pt is an effective verbal communicator. Mobility and Gait Furniture walking in the house Activities of Daily Living and IADL's Pt was IND for bathing at the sink and dressing. Her son does the finances, a neighbor manages her medications, son does all cleaning and laundry, and grandson often cooks for her. Prior Functional Level (Other details) Pt states she cannot get into her tub. Had a recent fall getting out of the shower and her son and one of his friends had to assist her. Social History Household Members family,children Living Arrangements House Number of Floors (Floors) One Floor Number of Stairs To Enter/Railing? 2 steps and no rail to enter Home Environment Standard Height Toilet Home Equipment Four Wheel Walker,Straight Cane,Tub Transfer Bench,Sock Aid Employment Status Retired Additional Social History Comment Pt states that they have railing to put at stairs but havent put it up yet and that they have a grab bar to put into the shower but that also has not yet been installed. M2 OT-IP Current Condition Start: 11/12/23 12:19 Freq: Status: Active Protocol: Document 11/12/23 12:19 CGR (Rec: 11/12/23 12:34 CGR [id number]) Occupational Therapy Current Condition Current Condition Evaluation Date 11/12/23 Treatment Diagnosis chest pain Diagnosis Onset Date 11/10/23 M3 OT- IP Subjective and Pain Start: 11/12/23 12:19 Freq: Status: Active Protocol: Document 11/12/23 12:19 CGR (Rec: 11/12/23 12:34 CGR [id number]) OT- Subjective Occupational Therapy Visit Type Type Initial Evaluation Visit Start Time 11:48 Visit Stop Time 12:10 Notes Pt requesting to get up to the toilet. OT Pain Assessment Pain When Pain Assessed At Rest Pain Present Pain Present Denied Pain M4 OT- IP ADL's Start: 11/12/23 12:19 Freq: Status: Active Protocol: Document 11/12/23 12:19 CGR (Rec: 11/12/23 12:34 CGR [id number]) OT [id number] Comments OT Self-Feeding Comments not meal time OT ADL-Grooming General Evaluation Grooming Ability Standby Assistance Areas Needing Assistance Combing/Brushing Hair,Face Washing Comments OT Grooming Comments standing at sink OT ADL-Oral Care General Eval Oral Care Ability Standby Assistance Areas of Assistance Brushing Teeth Comments Oral Care Comments standing at sink OT ADL-Dressing Comments OT Dressing Comments not performed but discussed that she is able to dress easily using a sock aid and food preparation kitchen aide. She states she doesn' t have a food preparation kitchen aide at home. OT ADL-Toileting General Evaluation Toileting Ability Standby Assistance Areas Needing Assistance Manage Clothing,Perform Perineal Hygiene Comments OT Toileting Comments seated on toielt for urination OT ADL-Bathing Comments OT Bathing Comments not performed M5 OT- IP IADL's Start: 11/12/23 12:19 Freq: Status: Active Protocol: Document 11/12/23 12:19 CGR (Rec: 11/12/23 12:34 CGR [id number]) OT-Instrumental Activities of Daily Living Deficits IADL Deficits Identified No Deficits Home Safety Awareness Awareness of Need for Assistance at Home Good Awareness Ability to Problem Solve Emergency Able to Problem Solve Situations Medication Management Medication Management Caregiver Administers Medication Management Comments Pt's neighbor typically manages her medications (Kristin) Money Management Money Management Caregiver Provides Assistance Money Management Comments Son manages all finances Meal Preparation Meal Preparation Caregiver Provides Assist Meal Preparation Comments Grandnaun performs most cooking Operations Examiner Operations Examiner Caregiver Provides Assist Operations Examiner Comments Son washes laundry and performs all cleaning of the home. Driving Driving Comments Pt states her and her son just decided that she should no longer drive. M6 OT- IP Functional Cognition Start: 11/12/23 12:19 Freq: Status: Active Protocol: Document 11/12/23 12:19 CGR (Rec: 11/12/23 12:34 CGR [id number]) Cognitive Factors Limiting Selfcare Function Cognitive Ability Level of Alertness Alert Patient Orientation Name,Age,Birthday,Month,Date, Year,Day of Week,Place, Situation Attention Span Ability Capable of Focused Attention, Capable of Sustained Attention Ability to Follow Commands Able to Follow Multi-Step Commands OT- Vision and Hearing OT- Hearing Assessment OT- Hearing Assessment WFL OT- Vision Assessment Visual Acuity Glasses For Reading Visual Attentiveness WFL Occular Pursuits WFL M7 OT- IP Mobility and Balance Start: 11/12/23 12:19 Freq: Status: Active Protocol: Document 11/12/23 12:19 CGR (Rec: 11/12/23 12:34 CGR [id number]) OT-Transfer Assessment Sit to and From Stand Sit to and from Stand Standby Assistance Transfers Transfer Ability Standby Assistance Technique Transfer Destination Chair,Toilet Transfer Technique Stand Step Pivot Devices Transfer Assistive Devices Gait Belt,Front Wheeled Walker Comments Mobility Comments mobility around the room OT- Balance Assessment Sitting Balance and Reactions Static Sitting Balance Ability Normal Dynamic Sitting Balance Ability Normal M8 OT- IP Objective Assessments Start: 11/12/23 12:19 Freq: Status: Active Protocol: Document 11/12/23 12:19 CGR (Rec: 11/12/23 12:34 CGR [id number]) OT Gross Range of Motion Upper Extremity Range of Motion Assessment Within Functional Limits OT Strength Upper Extremity Strength Assessment Within Functional Limits Comments Strength Comments 5/5 OT- Coordination Assessment Upper Extremity Finger to Nose Test Within Functional Limits Finger Tapping Test Within Functional Limits OT-Muscle Tone Assessment Muscle Tone WNL Yes OT Sensation Assessment Edema Edema Absent M9 OT- IP Assessment and Plan Start: 11/12/23 12:19 Freq: Status: Active Protocol: Document 11/12/23 12:19 CGR (Rec: 11/12/23 12:34 CGR [id number]) OT Summary Assessment and Plan Potential Rehabilitation Potential Excellent Analytic Complexity at Evaluation Low Summary OT Impairments Dressing,Toileting,Activity Tolerance Progress Towards Goals Safe For Discharge,Goals Met Assessment Summary Pt presents as a low complexity evaluation s/p admit for chest pain. Pt lives with her son and grandson who provide most assist. Pt does not use the shower for fear of falling d/t tub/shower. Pt educated on tub transfer bench with removal of tub doors so that she can get in and out safely. Pt states understand. No further OT needs at this time. Frequency of Treatment Frequency Of Treatment Discharge Discharge Recommendations OT Discharge Recommendations Home with Assistance Home Equipment Needs set up tub transfer bench for pt's use, set up railings at staris and grab bar in bathroom. Transportation Needs at Discharge Private Vehicle
--- NOTE | 2023-11-12 12:43 | P.PN_ITS ---
Subjective Subjective Interval history: Feeling better, she is weak. No chest pain or palpitations. I am discussing her case with her primary grain wafer machine operator at [facility]. An echo was requested. This is obtained and results are pending. Exam Vital Signs (past 8 hours): - 11/12/23 07:00 11/12/23 11:00 Temperature 98.0 F 98.7 F Pulse Rate 62 62 Respiratory Rate 18 17 Blood Pressure 144/72 H 123/59 L Pulse Oximetry 95 97 Oxygen Flow Rate 0 0 Oxygen Delivery Method Room Air Oxygen Flow Rate 0 Narrative Exam Narrative: NAD, alert and oriented. Flat affect. Lungs are clear, heart is irregular without murmur. Abdomen is non-distended, non-tender. Extremities are free of edema, good pedal pulses. Speech is fluent. Objective Labs 11/12/23 05:37 11/12/23 05:37 Labs: Laboratory Results - last 24 hr 11/11/23 11/12/23 11/12/23 12:57 05:37 Unknown WBC 7.7 RBC 3.60 L Hgb 9.9 L Hct 29.8 L MCV 82.6 MCH 27.5 MCHC 33.3 RDW 14.3 Plt Count 255 Neut % (Auto) 69.6 Lymph % (Auto) 18.5 L [place] % (Auto) 7.9 Eos % (Auto) 3.2 Baso % (Auto) 0.8 Neut # (Auto) 5400 Lymph # (Auto) 1400 [place] # (Auto) 600 Eos # (Auto) 200 Baso # (Auto) 100 Sodium 135 L Potassium 4.4 Chloride 105 Carbon Dioxide 25 BUN 30 H Creatinine 1.21 H Estimated GFR 48 L BUN/Creatinine Ratio 24.8 H Glucose 233 H Calcium 8.8 Troponin I 0.490 H* 0.290 H* PFSH Medical History Acute kidney injury Appendicitis with perforation Vertigo Sedentary lifestyle Stage II pressure ulcer of sacral region (~02/2023) Hyperlipidemia Thyroid nodule Incontinence Breast screening Abnormal mammogram of left breast NSTEMI (non-ST elevated myocardial infarction) (09/2018) Recent heart attack Coronary artery disease Osteopenia (05/20/14) Knee osteoarthritis Hypertension (~2011) Diabetes mellitus (~2011) Rheumatoid arthritis Colon polyps (08/31/14) Surgical History History of bilateral knee replacement (2009) History of colonoscopy with polypectomy (08/31/14) History of left cataract surgery (03/23/15) History of right cataract surgery (04/06/15) Anesthesia History of knee replacement History of knee replacement Status post delivery (12/21/78) Family History Brother Drowning Father Heart disease Mother Diabetes mellitus Sister Bone cancer Sister Bone cancer Social History marital status: household members: family and children Smoking Status: Never smoker alcohol intake: current substance use type: does not use Assessment & Plan Assessment & Plan narrative: 1. Atrial fibrillation with rapid response, present on admission and active. 2. Medication noncompliance, present on admission and active. 3. Diabetes mellitus 2, insulin dependent. Present on admission and active. 4. CAD with remote NSTEMI (09/2018) and LAD Stent 2019, stable. 5. TAVR 2020, present on admission and stable. Plan: -discussing with primary grain wafer machine operator, Dr. Rosario of [facility]. -echo was complete but read is pending. Dr. Rosario requests consideration of stress if echo has no evidence of wall motion abnormalities. -physical and occupational therapy evaluations -care home facility discharge planning. Quality VTE Deep Vein Thrombosis/Pulmonary Embolism Present on Admission: No
--- NOTE | 2023-11-12 14:20 | PT.IPTN ---
Current Diagnoses Unspecified atrial fibrillation (11/10/23) Physical Therapy Treatment Note M2 PT-IP Current Condition Start: 11/11/23 09:29 Freq: NEEDED Status: Active Protocol: Document 11/11/23 13:25 MB (Rec: 11/11/23 13:56 MB [id number]) Physical Therapy Current Condition Current Condition Evaluation Date 11/11/23 Treatment Diagnosis CP and a-fib M3 PT-IP Subjective Start: 11/11/23 09:29 Freq: NEEDED Status: Active Protocol: Document 11/12/23 14:20 AW (Rec: 11/12/23 14:40 AW [id number]) Subjective Physical Therapy Visit Type Type Treatment Note Visit Start Time 13:45 Visit Stop Time 14:20 Physical Therapy Visit Comments Patient Comments I just got back to bed. Therapy Pain Assessment Pain When Pain Assessed During Mobility Pain Present Pain Present Pain Reported Location Left knee Intensity 4 Scale Used Numeric (0 - 10) Description Chronic Pain Management Techniques Distraction M4 PT-IP Mobility and Gait Start: 11/11/23 09:29 Freq: NEEDED Status: Active Protocol: Document 11/12/23 14:20 AW (Rec: 11/12/23 14:40 AW [id number]) PT-Bed Mobility Assessment Supine to Sit Supine to Sit Minimal Assistance,1 Person Assistance,Head of Bed Elevated,Bedrails Sit to Supine Sit to Supine Minimal Assistance,1 Person Assistance PT-Transfer Assessment Sit to and From Stand Sit to and from Stand Standby Assistance,Contact Guard Assistance,1 Person Assistance,Use of Upper Extremities Equipment Transfer Assistive Device Gait Belt,Front Wheeled Walker Orthotic/Prosthetic Devices or Brace: No Transfers Transfer Destination Bed,Wheelchair Transfer Technique ambulated with FWW Transfer Ability Level of Assist Standby Assistance,Use of Upper Extremities Comments Mobility Comments Pt requires a great deal of encouragement to mobilize but is ultimately willing. She needs min assist and HOB elevated to transition to sitting EOB. PT deflates mattress to get pt's feet closer to the ground and she stands CGA (due to bed height) to FWW. She agrees to ambulate, walking in the [place] a total of 60 feet (no more than SBA). She fatigued after stair training and transferred to a wheelchair. PT escorted her back to her room where she stood and walked back to the bed using FWW with SBA. Transfer back to supine required min A due to bed height but pt clearly has the antigravity strength to lift her legs. Gait Assessment Gait Gait Assistance Required: Standby Assistance Distance (Feet) 65 Assistive Devices Assistive Device Gait Belt,Front Wheeled Walker Orthotic/Prosthetic Devices or Brace: No Gait Deviations General Gait Pattern Decreased Stride Length, Decreased Feet Clearance, Flexed Trunk,Wide Based Gait Factors Limiting Gait Function Factors Limiting Gait Function Decreased Activity Tolerance, Decreased Strength Comments Gait Comments Pt talks as she is walking with no SOB. She navigates obstacles well, properly scanning the environment and making subtle adjustments as needed. Stair Climbing Assessment Evaluation Level of Assist On Stairs Contact Guard Assistance Devices Stair Climbing Assistive Devices Left Railing,Right Railing Technique/Endurance Stair Climbing Direction Ascend and Descend Stair Climbing Technique Step to Step Number of Steps Climbed 2 Stair Climbing Set # Repetitions (reps) 1 Comments Stair Climbing Comments Pt used bilateral rails in ICU stairwell. No sign of instabilty or buckling. PT-Balance Assessment Sitting Balance and Reactions Static Sitting Balance Ability Normal Dynamic Sitting Balance Ability Good Standing Balance and Reactions Static Standing Balance Ability Good Dynamic Standing Balance Ability Fair Device Used FWW M5 PT-IP Objective Assessments Start: 11/11/23 09:29 Freq: NEEDED Status: Active Protocol: Document 11/11/23 13:25 MB (Rec: 11/11/23 13:56 MB [id number]) Orientation Orientation/Cognition Level of Alertness Alert Orientation Name,Age,Birthday,Month,Year, Place,Situation Language Function Ability No Deficits Noted Safety Awareness Decreased Safety Awareness Memory Description No Deficits Noted Gross Range of Motion Upper Extremity ROM Assessment Within Functional Limits Lower Extremity ROM Assessment Within Functional Limits Strength Comments Strength Comments Pt does not tolerate MMT LEs and c/o knee pain when PT tries to assess knee extension strength M6 PT-IP Treatment Start: 11/11/23 09:29 Freq: NEEDED Status: Active Protocol: Document 11/12/23 14:20 AW (Rec: 11/12/23 14:40 AW [id number]) Physical Therapy Treatment Exercises Exercises Gluteal Sets,Quad Sets,Heel Slides Other Treatments Other Treatment Performed 5 reps each exercise pre- mobility M7 PT-IP Assessment and Plan Start: 11/11/23 09:29 Freq: NEEDED Status: Active Protocol: Document 11/12/23 14:20 AW (Rec: 11/12/23 14:40 AW [id number]) PT Summary Assessment and Plan Summary Impairments Pain,Strength,Balance,Bed Mobility,Transfers,Gait, Activity Tolerance Progress Towards Goals Slow Progress due to Activity Tolerance Assessment Summary Pt is willing to participate with PT but requires extensive encouragement to do so. She is mobilizing at a level that supports safe discharge home with assist. She had HH services prior to admission and would certainly benefit from resumed services at discharge. Goals Transfer Goal Independent,Front Wheeled Walker,Four Wheeled Walker Gait Goal Independent,Front Wheel Walker ,Four Wheel Walker Gait Distance 75 Other Goals Pt sleeps in recliner at home so no bed mobility goal Pt will ascend and descend two steps with PLASTER LATHER to allow safe home entry. Days to Meet Goals 5 Frequency of Treatment Frequency Of Treatment Once a Day Treatment Plan Physical Therapy Treatment Plan Transfer Training,Gait Training,Therapeutic Exercise, Balance Retraining,Discharge Planning,Hot or Cold Pack Other Recommendations and Next Treatment practice single step with PLASTER LATHER; Focus recommend short bouts of gait with brief rest breaks Recommendations To Nursing Amount of Assist Needed Standby Assistance,1 Person Assist Discharge Recommendations PT Discharge Recommendations Home with 07/05 Assist Available,Home Health Transportation Needs at Discharge Private Vehicle
[2023-11-12 15:00] VITALS: BP 130/60; PULSE 62; RESP 18; TEMP 36.7; O2SAT 97
[2023-11-12] MEDS: ATORVASTATIN 20 MG TABLET 80 MG PO (17:23)
[2023-11-12 20:00] VITALS: BP 118/59; PULSE 67; RESP 20; TEMP 37.3; O2SAT 97
[2023-11-13] VITALS (8 sets, daily range): BP systolic 116–139; BP diastolic 54–87; PULSE 63–71; RESP 16–18; TEMP 36.6–37.6; O2SAT 97–100
[2023-11-13 04:48] LABS: Add Manual Diff / Slide Review NO; Basophils Absolute Auto 100 /uL (0-100); Basophils Percent Auto 1.3 % (0-2); Eosinophils Absolute Auto 300 /uL (0-450); Eosinophils Percent Auto 2.7 % (2-4); Hemoglobin 10.6 g/dL (12.0-16.0); Lymphocytes Absolute Auto 1700 /uL (1100-4500); Lymphocytes Percent Auto 15.2 % (25-40); Mean Corpuscular HGB Conc 33.2 % (30-36); Mean Corpuscular Volume 81.5 fL (80-100); Monocytes Absolute Auto 800 /uL (0-900); Monocytes Percent Auto 7.6 % (3-14); Neutrophils Absolute Auto 8000 /uL (1500-7000); Neutrophils Percent Auto 73.2 % (50-75); Platelet Count 284 X10^3/uL (150-400); Red Blood Cell Count 3.92 X10^6/uL (4.0-5.2); Red Cell Distribution Width 14.6 % (11.6-14.8)
[2023-11-13 05:04] LABS: BUN Creatinine Ratio 28.6 (6-22); Blood Urea Nitrogen 28 mg/dL (7-17); Calcium 9.2 mg/dL (8.4-10.2); Carbon Dioxide 24 mmol/L (22-32); Chloride 106 mmol/L (98-107); Estimated Glomerular Filt Rate > 60 mL/min (>60); Glucose 232 mg/dL (80-110); HEMOLYSIS < 15 (0-50); Potassium 4.3 mmol/L (3.4-5.1); Sodium 135 mmol/L (137-145)
[2023-11-13] MEDS: INSULIN LISPRO 100 UNIT/ML 3ML VIAL SUBCUT ×4 (08:06→21:24)
[2023-11-13] MEDS: INSULIN GLARGINE 100 UNIT/ML 3ML PEN 40 UNIT SUBCUT (08:14)
--- NOTE | 2023-11-13 11:02 | PM.PN.1 ---
Subjective Subjective Interval history: Feeling pretty good. No chest pain or dyspnea. She is starting her 2 day stress test today. Exam Vital Signs (past 8 hours): - 11/13/23 03:21 11/13/23 08:00 Temperature 98.9 F 98.0 F Pulse Rate 67 69 Respiratory Rate 18 16 Blood Pressure 137/63 118/54 L Pulse Oximetry 97 100 Oxygen Flow Rate 0 0 Oxygen Delivery Method Room Air Oxygen Flow Rate 0 Narrative Exam Narrative: NAD, fluent speech. Normal affect. Lungs are clear with normal rate and effort. Heart is regular, without murmur. Abdomen is soft, no tenderness. Extremities are free of edema. Objective Imaging Echo: Radiologist's impression: Technically difficult study. Mild concentric left ventricular hypertrophy with ejection fraction 65-70%. The left atrium is moderately dilated. The right atrium is mildly dilated. The boprosthetic aortic valve is well-seated. Mild to moderate aortic regurgitation. Moderate to severe mitral annular calcification. Moderate to severe mitral stenosis. The mitral valve mean gradient is 9.0 mmHg. Mild tricuspid regurgitation. The right ventricular systolic pressure is estimated to be at least 40 mmHg based on an estimated right atrial pressure of 3 mm Hg. Comparison is made with the echocardiogram of 06/05/2023, aortic regurgitation and mitral stenosis have progressed. Labs 11/13/23 04:30 11/13/23 04:30 Labs: Laboratory Results - last 24 hr 11/13/23 04:30 WBC 11.0 RBC 3.92 L Hgb 10.6 L Hct 32.0 L MCV 81.5 MCH 27.0 MCHC 33.2 RDW 14.6 Plt Count 284 Neut % (Auto) 73.2 Lymph % (Auto) 15.2 L [place] % (Auto) 7.6 Eos % (Auto) 2.7 Baso % (Auto) 1.3 Neut # (Auto) 8000 H Lymph # (Auto) 1700 [place] # (Auto) 800 Eos # (Auto) 300 Baso # (Auto) 100 Sodium 135 L Potassium 4.3 Chloride 106 Carbon Dioxide 24 BUN 28 H Creatinine 0.98 Estimated GFR > 60 BUN/Creatinine Ratio 28.6 H Glucose 232 H Calcium 9.2 PFSH Medical History Acute kidney injury Appendicitis with perforation Vertigo Sedentary lifestyle Stage II pressure ulcer of sacral region (~02/2023) Hyperlipidemia Thyroid nodule Incontinence Breast screening Abnormal mammogram of left breast NSTEMI (non-ST elevated myocardial infarction) (09/2018) Recent heart attack Coronary artery disease Osteopenia (05/20/14) Knee osteoarthritis Hypertension (~2011) Diabetes mellitus (~2011) Rheumatoid arthritis Colon polyps (08/31/14) Surgical History History of bilateral knee replacement (2009) History of colonoscopy with polypectomy (08/31/14) History of left cataract surgery (03/23/15) History of right cataract surgery (04/06/15) Anesthesia History of knee replacement History of knee replacement Status post delivery (12/21/78) Family History Brother Drowning Father Heart disease Mother Diabetes mellitus Sister Bone cancer Sister Bone cancer Social History marital status: household members: family and children Smoking Status: Never smoker alcohol intake: current substance use type: does not use Assessment & Plan Assessment & Plan narrative: 1. Atrial fibrillation with rapid response, present on admission and active. 2. Medication noncompliance, present on admission and active. 3. Diabetes mellitus 2, insulin dependent. Present on admission and active. 4. CAD with remote NSTEMI (09/2018) and LAD Stent 2019, stable. 5. TAVR 2020, present on admission and stable. 6. Moderate to severe Mitral stenosis, present on admission and active. Plan: -have been discussing the case with her primary assembler piano. He requested a stress test. -we will complete a stress test, 2 day study with resting images today and exertional tomorrow given her BMI. Continue other medications without change today. Physical therapy assessment actually recommends home with 24 hour assistance. She will not need a [place] [facility] facility. We will continue to get her out of bed and advance activity today. Anticipate discharge on November 14 if her stress test results are acceptable. Quality VTE Deep Vein Thrombosis/Pulmonary Embolism Present on Admission: No
--- NOTE | 2023-11-13 11:08 | CM.DPNOTE ---
DCP Note ASSOCIATE PROFESSOR PHYSICIAN reviewed EMR. Per provider in morning rounds, transportation planning technician rec 2 day stress test. Per provider, anticipate dc tomorrow if stress test results are acceptable. [facility] able to accept/resume care. F2F already sent and scanned into chart. Plan: home with son to transport in POV/son support as well as [facility] for RN/OT/PT/bath aid. No additional CM needs identified at this time, will continue to follow as needed. SAYRA Solorzano
--- NOTE | 2023-11-13 11:35 | PT.IPTN ---
Current Diagnoses Unspecified atrial fibrillation (11/10/23) Physical Therapy Treatment Note M2 PT-IP Current Condition Start: 11/11/23 09:29 Freq: NEEDED Status: Active Protocol: Document 11/11/23 13:25 MB (Rec: 11/11/23 13:56 MB [id number]) Physical Therapy Current Condition Current Condition Evaluation Date 11/11/23 Treatment Diagnosis CP and a-fib M3 PT-IP Subjective Start: 11/11/23 09:29 Freq: NEEDED Status: Active Protocol: Document 11/13/23 12:37 TS (Rec: 11/13/23 12:54 TS [id number]) Subjective Physical Therapy Visit Type Type Treatment Note Visit Start Time 11:35 Visit Stop Time 12:00 Notes BP: 107/64 sitting, 119/54 standing, Spo2 98% on RA at rest, Spo2 93% after mobility. Number of WILDLIFE ENFORCEMENT MAJOR Visits 1 Physical Therapy Visit Comments Patient Comments Pt found resting in chair, is agreeable to PT. M4 PT-IP Mobility and Gait Start: 11/11/23 09:29 Freq: NEEDED Status: Active Protocol: Document 11/13/23 12:37 TS (Rec: 11/13/23 12:54 TS [id number]) PT-Transfer Assessment Sit to and From Stand Sit to and from Stand Standby Assistance,Use of Upper Extremities Equipment Transfer Assistive Device Gait Belt,Front Wheeled Walker Orthotic/Prosthetic Devices or Brace: No Comments Mobility Comments Bp in supine 107/64 prior to mobility. Sit to stand with FWW SBA, pt uses momentum to stand. BP in standing 119/54, pt reports shakiness in legs , required to sit in chair. STS from chair SBA with FWW, pt agreed to ambulate. She ambulated in hallway ~100' SBA with FWW , reports some fatigue and requires standing rest break. She performed steps x2 with rails descending /ascending SBA/CGA. She ambulated back to room, reports SOB, Spo2 93% on RA. pt was left in chair, alarm on , all needs met. Gait Assessment Gait Gait Assistance Required: Standby Assistance Distance (Feet) 100 Able to Maintain Weight Bearing Status Yes During Gait Assistive Devices Assistive Device Gait Belt,Front Wheeled Walker Orthotic/Prosthetic Devices or Brace: No Gait Deviations General Gait Pattern Decreased Stride Length, Decreased Feet Clearance, Flexed Trunk,Wide Based Gait Factors Limiting Gait Function Factors Limiting Gait Function Decreased Activity Tolerance, Decreased Strength Comments Gait Comments See mobility comments Stair Climbing Assessment Evaluation Level of Assist On Stairs Standby Assistance,Contact Guard Assistance Devices Stair Climbing Assistive Devices Left Railing,Right Railing Technique/Endurance Stair Climbing Direction Ascend and Descend Stair Climbing Technique Step to Step Number of Steps Climbed 2 Stair Climbing Set # Repetitions (reps) 1 Comments Stair Climbing Comments See mobility comments PT-Balance Assessment Sitting Balance and Reactions Static Sitting Balance Ability Normal Dynamic Sitting Balance Ability Good Standing Balance and Reactions Static Standing Balance Ability Good Dynamic Standing Balance Ability Fair Device Used FWW M5 PT-IP Objective Assessments Start: 11/11/23 09:29 Freq: NEEDED Status: Active Protocol: Document 11/11/23 13:25 MB (Rec: 11/11/23 13:56 MB [id number]) Orientation Orientation/Cognition Level of Alertness Alert Orientation Name,Age,Birthday,Month,Year, Place,Situation Language Function Ability No Deficits Noted Safety Awareness Decreased Safety Awareness Memory Description No Deficits Noted Gross Range of Motion Upper Extremity ROM Assessment Within Functional Limits Lower Extremity ROM Assessment Within Functional Limits Strength Comments Strength Comments Pt does not tolerate MMT LEs and c/o knee pain when PT tries to assess knee extension strength M6 PT-IP Treatment Start: 11/11/23 09:29 Freq: NEEDED Status: Active Protocol: Document 11/12/23 14:20 AW (Rec: 11/12/23 14:40 AW [id number]) Physical Therapy Treatment Exercises Exercises Gluteal Sets,Quad Sets,Heel Slides Other Treatments Other Treatment Performed 5 reps each exercise pre- mobility M7 PT-IP Assessment and Plan Start: 11/11/23 09:29 Freq: NEEDED Status: Active Protocol: Document 11/13/23 12:37 TS (Rec: 11/13/23 12:54 TS [id number]) PT Summary Assessment and Plan Summary Impairments Pain,Strength,Balance,Bed Mobility,Transfers,Gait, Activity Tolerance Progress Towards Goals Progressing Toward Goals Assessment Summary Anuja is making some progress with her mobility this session . She progressed her gait to ~ 100'SBA with step thru gait and use of FWW. She has some fatigue with gait and some SOB , Spo2 desats to low 90's with ambulation. She continues to perform steps x2 with B handrails SBA. PT continues to recommend home with 24/7 support and HHPT. Goals Transfer Goal Independent,Front Wheeled Walker,Four Wheeled Walker Gait Goal Independent,Front Wheel Walker ,Four Wheel Walker Gait Distance 75 Other Goals Pt sleeps in recliner at home so no bed mobility goal Pt will ascend and descend two steps with TESTING TECH to allow safe home entry. Days to Meet Goals 5 Frequency of Treatment Frequency Of Treatment Once a Day Treatment Plan Physical Therapy Treatment Plan Transfer Training,Gait Training,Therapeutic Exercise, Balance Retraining,Discharge Planning,Hot or Cold Pack Other Recommendations and Next Treatment practice single step with TESTING TECH; Focus recommend short bouts of gait with brief rest breaks Recommendations To Nursing Amount of Assist Needed Standby Assistance Discharge Recommendations PT Discharge Recommendations Home with 24/7 Assist Available,Home Health Transportation Needs at Discharge Private Vehicle
[2023-11-13] MEDS: ACETAMINOPHEN 325 MG TABLET 650 MG PO (12:12)
[2023-11-13] MEDS: dilTIAZem CD 120 MG CAP 240 MG PO ×2 (12:21→21:24)
[2023-11-13] MEDS: APIXABAN 5 MG TABLET PO ×2 (12:21→21:24)
[2023-11-13] MEDS: CLOPIDOGREL 75 MG TABLET PO (12:21)
[2023-11-13] MEDS: METOPROLOL ER 50 MG TABLET PO (12:22)
[2023-11-13] MEDS: SODIUM CHLORIDE 0.9% FLUSH 10 ML IV ×2 (12:22→21:00)
[2023-11-13] MEDS: ATORVASTATIN 20 MG TABLET 80 MG PO (17:06)
[2023-11-14 04:00] VITALS: BP 117/53; PULSE 56; RESP 18; TEMP 36.2; O2SAT 98
[2023-11-14 08:00] VITALS: BP 117/76; PULSE 65; RESP 19; TEMP 36.4; O2SAT 99
[2023-11-14] MEDS: INSULIN LISPRO 100 UNIT/ML 3ML VIAL SUBCUT ×3 (08:35→17:04)
[2023-11-14] MEDS: INSULIN GLARGINE 100 UNIT/ML 3ML PEN 40 UNIT SUBCUT (08:40)
[2023-11-14] MEDS: dilTIAZem CD 120 MG CAP 240 MG PO ×2 (08:41→21:23)
[2023-11-14 08:47] VITALS: BP 127/59; PULSE 85
[2023-11-14] MEDS: APIXABAN 5 MG TABLET PO ×2 (08:47→21:23)
[2023-11-14] MEDS: CLOPIDOGREL 75 MG TABLET PO (08:47)
[2023-11-14] MEDS: METOPROLOL ER 50 MG TABLET PO (08:47)
[2023-11-14] MEDS: SODIUM CHLORIDE 0.9% FLUSH 10 ML IV ×2 (08:48→21:24)
--- NOTE | 2023-11-14 09:10 | PT.IPTN ---
Current Diagnoses Unspecified atrial fibrillation (11/10/23) Physical Therapy Treatment Note M2 PT-IP Current Condition Start: 11/11/23 09:29 Freq: NEEDED Status: Active Protocol: Document 11/11/23 13:25 MB (Rec: 11/11/23 13:56 MB [id number]) Physical Therapy Current Condition Current Condition Evaluation Date 11/11/23 Treatment Diagnosis CP and a-fib M3 PT-IP Subjective Start: 11/11/23 09:29 Freq: NEEDED Status: Active Protocol: Document 11/14/23 09:49 ZF (Rec: 11/14/23 09:58 ZF [id number]) Subjective Physical Therapy Visit Type Type Treatment Note Visit Start Time 09:10 Visit Stop Time 09:40 Physical Therapy Visit Comments Patient Comments Pt up in recliner, agreeable to therapy. M4 PT-IP Mobility and Gait Start: 11/11/23 09:29 Freq: NEEDED Status: Active Protocol: Document 11/14/23 09:49 ZF (Rec: 11/14/23 09:58 ZF [id number]) PT-Transfer Assessment Sit to and From Stand Sit to and from Stand Standby Assistance,Use of Upper Extremities Equipment Transfer Assistive Device Gait Belt,Front Wheeled Walker Orthotic/Prosthetic Devices or Brace: No Transfers Transfer Destination Bed,Wheelchair Transfer Technique ambulated with FWW Transfer Ability Level of Assist Standby Assistance,Use of Upper Extremities Comments Mobility Comments STS from recliner, toilet, WC, w/2ww, SBA. Pt amb short distance in room to toilet and sink, w/2ww, SBA. Pt amb in hallway x120' w/SBA, asc/concetta x3 steps w/CGA/SBA. Pt requires occasional RB due to fatigue, but does not dem SOB. Vitals montiored w/activity and remain WNL. Gait Assessment Gait Gait Assistance Required: Standby Assistance Distance (Feet) 120 Able to Maintain Weight Bearing Status Yes During Gait Assistive Devices Assistive Device Gait Belt,Front Wheeled Walker Orthotic/Prosthetic Devices or Brace: No Gait Deviations General Gait Pattern Decreased Stride Length, Decreased Feet Clearance, Flexed Trunk,Wide Based Gait Factors Limiting Gait Function Factors Limiting Gait Function Decreased Activity Tolerance, Decreased Strength Comments Gait Comments See mobility comments. Stair Climbing Assessment Evaluation Level of Assist On Stairs Standby Assistance,Contact Guard Assistance Devices Stair Climbing Assistive Devices Left Railing,Right Railing Technique/Endurance Stair Climbing Direction Ascend and Descend Stair Climbing Technique Step to Step Number of Steps Climbed 3 Stair Climbing Set # Repetitions (reps) 1 Comments Stair Climbing Comments Pt uses R HR and cane, requires SBA/CGA. PT-Balance Assessment Sitting Balance and Reactions Static Sitting Balance Ability Normal Dynamic Sitting Balance Ability Good Standing Balance and Reactions Static Standing Balance Ability Good Dynamic Standing Balance Ability Fair Device Used FWW M5 PT-IP Objective Assessments Start: 11/11/23 09:29 Freq: NEEDED Status: Active Protocol: Document 11/11/23 13:25 MB (Rec: 11/11/23 13:56 MB [id number]) Orientation Orientation/Cognition Level of Alertness Alert Orientation Name,Age,Birthday,Month,Year, Place,Situation Language Function Ability No Deficits Noted Safety Awareness Decreased Safety Awareness Memory Description No Deficits Noted Gross Range of Motion Upper Extremity ROM Assessment Within Functional Limits Lower Extremity ROM Assessment Within Functional Limits Strength Comments Strength Comments Pt does not tolerate MMT LEs and c/o knee pain when PT tries to assess knee extension strength M6 PT-IP Treatment Start: 11/11/23 09:29 Freq: NEEDED Status: Active Protocol: Document 11/12/23 14:20 AW (Rec: 11/12/23 14:40 AW [id number]) Physical Therapy Treatment Exercises Exercises Gluteal Sets,Quad Sets,Heel Slides Other Treatments Other Treatment Performed 5 reps each exercise pre- mobility M7 PT-IP Assessment and Plan Start: 11/11/23 09:29 Freq: NEEDED Status: Active Protocol: Document 11/14/23 09:49 ZF (Rec: 11/14/23 09:58 ZF [id number]) PT Summary Assessment and Plan Summary Impairments Pain,Strength,Balance,Bed Mobility,Transfers,Gait, Activity Tolerance Progress Towards Goals Progressing Toward Goals Assessment Summary Pt dems improved tolerance for activity, ambulates in room and in hallway. Continues to progress toward goals. Recommending DC home w/son's assist, and HHPT. Goals Transfer Goal Independent,Front Wheeled Walker,Four Wheeled Walker Gait Goal Independent,Front Wheel Walker ,Four Wheel Walker Gait Distance 75 Other Goals Pt sleeps in recliner at home so no bed mobility goal Pt will ascend and descend two steps with AIR INTELLIGENCE SPECIALIST to allow safe home entry. Days to Meet Goals 5 Frequency of Treatment Frequency Of Treatment Once a Day Treatment Plan Physical Therapy Treatment Plan Transfer Training,Gait Training,Therapeutic Exercise, Balance Retraining,Discharge Planning,Hot or Cold Pack Recommendations To Nursing Amount of Assist Needed 1 Person Assist Discharge Recommendations PT Discharge Recommendations Home with 07/05 Assist Available,Home Health Transportation Needs at Discharge Private Vehicle
[2023-11-14 10:36] VITALS: BP 113/54; PULSE 78
--- NOTE | 2023-11-14 10:40 | CM.DPNOTE ---
Addendum entered by SAYRA Solorzano 11/14/23 13:16: Per provider, pt's stress test indicated some abnormalities and master data analyst feels pt needs an angiogram. Spot Remover recommends transfer to [facility]. Provider/nursing staff attempting to coordinate transfer now. NETWORK DEVELOPER spoke with Alexandra at [facility] to update her that pt is transferring. Alexandra appreciative. Plan: pt to transfer to [facility] for angiogram per master data analyst recommendation. CM team will continue to follow as needed. SL Original Note: DCP Note NETWORK DEVELOPER reviewed EMR. Per provider in morning rounds, anticipate dc today following stress test if results indicate as such. Pt will fu with master data analyst OP. Per RN, stress test scheduled for 1130. [facility] able to accept/resume care. F2F already sent and scanned into chart. Plan: home with son to transport in POV/son support as well as [facility] for RN/OT/PT/bath aid. No additional CM needs identified at this time, will continue to follow as needed. CM team will notify [facility] at dc and send required dc information. SAYRA Solorzano
[2023-11-14] MEDS: ACETAMINOPHEN 325 MG TABLET 650 MG PO (12:42)
--- NOTE | 2023-11-14 13:02 | PM.PN.1 ---
Subjective Subjective Interval history: No chest pain or dyspnea. She finished the 2nd day of her [address] Nick while notes abnormalities in the inferior aspect of the heart consistent with a infarct and james-infarct ischemia. He feels that she needs an angiogram. She did have an LAD stent 2 years ago. Exam Vital Signs (past 8 hours): - 11/14/23 08:00 11/14/23 08:47 11/14/23 10:36 Temperature 97.5 F L Pulse Rate 65 85 78 Respiratory Rate 19 Blood Pressure 117/76 127/59 L 113/54 L Pulse Oximetry 99 Oxygen Flow Rate 0 Oxygen Delivery Method Room Air Oxygen Flow Rate 0 Narrative Exam Narrative: NAD, no acute distress. Lungs are clear, normal effort. Heart is irregular, soft murmur. Abdomen is soft, nontender. No leg edema. Objective Imaging Echo: Radiologist's impression: Technically difficult study. Mild concentric left ventricular hypertrophy with ejection fraction 65-70%. The left atrium is moderately dilated. The right atrium is mildly dilated. The boprosthetic aortic valve is well-seated. Mild to moderate aortic regurgitation. Moderate to severe mitral annular calcification. Moderate to severe mitral stenosis. The mitral valve mean gradient is 9.0 mmHg. Mild tricuspid regurgitation. The right ventricular systolic pressure is estimated to be at least 40 mmHg based on an estimated right atrial pressure of 3 mm Hg. Comparison is made with the echocardiogram of 06/05/2023, aortic regurgitation and mitral stenosis have progressed. Lexiscan: Radiologist's impression: Verbal report is notable for an inferior defect. Defect ischemia. City Clerk feels that patient requires a transfer for an angiogram. Dr. Rosario. Labs 11/13/23 04:30 11/13/23 04:30 [facility] Medical History Acute kidney injury Appendicitis with perforation Vertigo Sedentary lifestyle Stage II pressure ulcer of sacral region (~02/2023) Hyperlipidemia Thyroid nodule Incontinence Breast screening Abnormal mammogram of left breast NSTEMI (non-ST elevated myocardial infarction) (09/2018) Recent heart attack Coronary artery disease Osteopenia (05/20/14) Knee osteoarthritis Hypertension (~2011) Diabetes mellitus (~2011) Rheumatoid arthritis Colon polyps (08/31/14) Surgical History History of bilateral knee replacement (2009) History of colonoscopy with polypectomy (08/31/14) History of left cataract surgery (03/23/15) History of right cataract surgery (04/06/15) Anesthesia History of knee replacement History of knee replacement Status post delivery (12/21/78) Family History Brother Drowning Father Heart disease Mother Diabetes mellitus Sister Bone cancer Sister Bone cancer Social History marital status: household members: family and children Smoking Status: Never smoker alcohol intake: current substance use type: does not use Assessment & Plan Assessment & Plan narrative: 1. Atrial fibrillation with rapid response, present on admission and active. 2. Medication noncompliance, present on admission and active. 3. NSTEMI, present on admission and improved. Medical therapy did not include heparin as patient is on apixaban. 4. Diabetes mellitus 2, insulin dependent. Present on admission and active. 5. CAD with remote NSTEMI (09/2018) and LAD Stent 2019, stable. 6. TAVR 2020, present on admission and stable. 7. Moderate to severe Mitral stenosis, present on admission and active. Plan: Case has been discussed with primary financial planning analyst (Abraham) since the day after admission. The patient did have relatively prompt rate control however she did have elevations of troponins concerning for NSTEMI. His initial advice was to obtain an echo and rule out wall motion abnormalities. There were no wall motion abnormalities, stress test was ordered (2 days study due to BMI) and read by him as notable for an inferior defect consistent with [place] as well as james-infarct ischemia. He recommends transfer for angiogram at [facility]. This message was conveyed at about 12:30 p.m. on November 14, I did contact [facility] who is currently boarding over 10 patients. She is in the queue for transfer. The patient has been informed and understands the situation and plan. Quality VTE Deep Vein Thrombosis/Pulmonary Embolism Present on Admission: No
[2023-11-14 16:00] VITALS: BP 121/60; PULSE 57; RESP 19; TEMP 36.6; O2SAT 99
[2023-11-14] MEDS: ATORVASTATIN 20 MG TABLET 80 MG PO (17:30)
[2023-11-14 20:00] VITALS: BP 134/64; PULSE 60; RESP 18; TEMP 36.4; O2SAT 99
[2023-11-14] MEDS: INSULIN GLARGINE 100 UNIT/ML 3ML PEN 25 UNIT SUBCUT (21:26)
[2023-11-15 04:00] VITALS: BP 146/66; PULSE 54; RESP 22; TEMP 36.3; O2SAT 97
[2023-11-15 08:00] VITALS: BP 128/58; PULSE 50; RESP 28; TEMP 35.9; O2SAT 98
[2023-11-15] MEDS: dilTIAZem CD 120 MG CAP 240 MG PO ×2 (08:04→21:33)
[2023-11-15 08:05] VITALS: BP 128/58; PULSE 50
[2023-11-15] MEDS: CLOPIDOGREL 75 MG TABLET PO (08:05)
[2023-11-15] MEDS: INSULIN LISPRO 100 UNIT/ML 3ML VIAL SUBCUT ×4 (08:05→20:33)
[2023-11-15] MEDS: HEPARIN 5,000 UNIT/ML VIAL 6500 UNIT IV (09:50)
[2023-11-15] MEDS: INSULIN GLARGINE 100 UNIT/ML 3ML PEN 30 UNIT SUBCUT ×2 (09:52→20:33)
[2023-11-15] MEDS: HEPARIN DRIP 25,000 UNIT/500 ML IV.SOLN 20 UNIT IV (09:54)
[2023-11-15] MEDS: SODIUM CHLORIDE 0.9% FLUSH 10 ML IV ×2 (10:05→21:33)
--- NOTE | 2023-11-15 10:15 | PT-IP ANOTE ---
Pt to transfer to another hospital, in need of cardiac cath d/t ischemic cardiac issues. Will d/c PT.
--- NOTE | 2023-11-15 10:20 | DI.NM.S_ITS ---
DATE OF SERVICE: 11/14/2023 PROCEDURE: Pharmacological perfusion study. INDICATIONS: AFib with fast ventricular rate, known LAD stent, abnormal troponin. RADIOPHARMACEUTICAL: 27.1 millicurie technetium-99m Myoview IV was injected at stress and 26.3 millicurie technetium-99m Myoview IV was injected at rest. CARDIAC STRESS: The patient underwent IV Lexiscan perfusion study under the supervision of attending staff using standard intravenous Lexiscan as per protocol. The patient remained hemodynamically stable. Baseline blood pressure 130/70. Baseline rhythm sinus. During stress, no convincing ischemic changes seen. No significant arrhythmias. No chest pain. Had minimal dyspnea. RAW DATA: There is a breast shadow seen. GATED STUDY: Stress LV ejection fraction appears to be 84; however, there is an inferoapical perfusion defect. Rest of the segments appears to be elsi vigorously. Resting end-diastolic volume 91 mL. TID ratio 1.26. Lung/heart ratio abnormal which is 0.54. MYOCARDIAL PERFUSION SCAN: Please note there is no stress prone images. Stress supine and resting supine images were compared to each other. There appears to be moderate size, severely decreased perfusion of distal inferior wall extending into the inferior apex which is predominantly fixed. Along with that there is a small size, mild reversibility in the basal inferolateral wall as well as distal anteroseptum. CONCLUSION: This is an abnormal myocardial perfusion study consistent with moderate size, severe infarction of distal inferior wall and inferior apex and small reversibility in the basal inferolateral wall and distal anteroseptum. On gated study, there is a decreased perfusion in this area; however, there is a large breast shadow seen as well. There are no stress prone images. Some of the tissue component cannot be ruled out; however, based on gated findings and perfusion findings, likely true defect. Discussed the plan with the hospitalist team. In view of abnormal troponin, known history of coronary artery disease, consider further evaluation with invasive workup like left heart catheterization. ParkerAnuja - CALI/devin/erin doc#: [id number]/job#: [id number] dd: 11/14/2023 12:53:00 dt: 11/15/2023 02:09:00 DICTATING MD/COPIES TO: Светлана Rosario MD COPIES MNE: DON;
[2023-11-15 12:00] VITALS: BP 122/83; PULSE 52; RESP 20; TEMP 36; O2SAT 97
--- NOTE | 2023-11-15 14:22 | PM.PN.1 ---
Subjective Subjective Interval history: Switched po eliquis to heparin drip in preparation for heart cath once transferred. Patient doing well and has no complaints. Denies CP. Exam Vital Signs (past 8 hours): - 11/15/23 08:00 11/15/23 08:05 11/15/23 12:00 Temperature 96.6 F L 96.8 F L Pulse Rate 50 L 50 L 52 L Respiratory Rate 28 H 20 Blood Pressure 128/58 L 128/58 L 122/83 Pulse Oximetry 98 97 Oxygen Flow Rate 0 0 Oxygen Delivery Method Room Air Oxygen Flow Rate 0 Narrative Exam Narrative: NAD, no acute distress. Lungs are clear, normal effort. Heart is irregular, soft murmur. Abdomen is soft, nontender. No leg edema. Objective Labs 11/13/23 04:30 11/13/23 04:30 [facility] Medical History Acute kidney injury Appendicitis with perforation Vertigo Sedentary lifestyle Stage II pressure ulcer of sacral region (~02/2023) Hyperlipidemia Thyroid nodule Incontinence Breast screening Abnormal mammogram of left breast NSTEMI (non-ST elevated myocardial infarction) (09/2018) Recent heart attack Coronary artery disease Osteopenia (05/20/14) Knee osteoarthritis Hypertension (~2011) Diabetes mellitus (~2011) Rheumatoid arthritis Colon polyps (08/31/14) Surgical History History of bilateral knee replacement (2009) History of colonoscopy with polypectomy (08/31/14) History of left cataract surgery (03/23/15) History of right cataract surgery (04/06/15) Anesthesia History of knee replacement History of knee replacement Status post delivery (12/21/78) Family History Brother Drowning Father Heart disease Mother Diabetes mellitus Sister Bone cancer Sister Bone cancer Social History marital status: household members: family and children Smoking Status: Never smoker alcohol intake: current substance use type: does not use Assessment & Plan Assessment & Plan narrative: 1. Atrial fibrillation with rapid response, present on admission and RVR resolved. 2. Medication noncompliance, present on admission and active. 3. NSTEMI, present on admission and improved. Stress test showed moderate size, severe infarction of distal inferior wall and inferior apex and small reversibility in the basal inferolateral wall and distal anteroseptum. Needs heart cath. Switched apixaban to heparin drip in preparation for heart cath. 4. Diabetes mellitus 2, insulin dependent. Present on admission and active. 5. CAD with remote NSTEMI (09/2018) and LAD Stent 2019, stable. 6. TAVR 2020, present on admission and stable. 7. Moderate to severe Mitral stenosis, present on admission and active. Plan: Case has been discussed with primary main entree cook and cashier (Abraham) since the day after admission. The patient did have relatively prompt rate control however she did have elevations of troponins concerning for NSTEMI. His initial advice was to obtain an echo and rule out wall motion abnormalities. There were no wall motion abnormalities, stress test was ordered (2 days study due to BMI) and read by him as notable for an inferior defect consistent with [place] as well as james-infarct ischemia. He recommends transfer for angiogram at [facility]. This message was conveyed at about 12:30 p.m. on November 14, I did contact [facility] who is currently boarding over 10 patients. She is in the queue for transfer. The patient has been informed and understands the situation and plan. [facility] also contacted and pending transfer. Quality VTE Deep Vein Thrombosis/Pulmonary Embolism Present on Admission: No
[2023-11-15 16:00] VITALS: BP 113/59; PULSE 54; RESP 25; TEMP 36.2; O2SAT 98
[2023-11-15 16:59] LABS: PTT Partial Thromboplastin Tim 53 SECONDS (25.1-36.5)
[2023-11-15 17:14] LABS: Add Manual Diff / Slide Review NO; Basophils Absolute Auto 100 /uL (0-100); Basophils Percent Auto 0.7 % (0-2); Eosinophils Absolute Auto 300 /uL (0-450); Eosinophils Percent Auto 2.3 % (2-4); Hemoglobin 10.4 g/dL (12.0-16.0); Lymphocytes Absolute Auto 1600 /uL (1100-4500); Lymphocytes Percent Auto 14.4 % (25-40); Mean Corpuscular HGB Conc 32.6 % (30-36); Mean Corpuscular Hemoglobin 26.5 PG (26-34); Mean Corpuscular Volume 81.5 fL (80-100); Monocytes Absolute Auto 700 /uL (0-900); Monocytes Percent Auto 6.1 % (3-14); Neutrophils Absolute Auto 8700 /uL (1500-7000); Neutrophils Percent Auto 76.5 % (50-75); Platelet Count 297 X10^3/uL (150-400); Red Blood Cell Count 3.92 X10^6/uL (4.0-5.2); Red Cell Distribution Width 14.9 % (11.6-14.8); White Blood Cell Count 11.4 X10^3/uL (4.5-11.0)
[2023-11-15 17:18] LABS: BUN Creatinine Ratio 27.8 (6-22); Blood Urea Nitrogen 32 mg/dL (7-17); Calcium 9.3 mg/dL (8.4-10.2); Carbon Dioxide 29 mmol/L (22-32); Chloride 102 mmol/L (98-107); Estimated Glomerular Filt Rate 51 mL/min (>60); Glucose 233 mg/dL (80-110); HEMOLYSIS < 15 (0-50); Potassium 4.6 mmol/L (3.4-5.1); Sodium 135 mmol/L (137-145)
[2023-11-15] MEDS: ATORVASTATIN 20 MG TABLET 80 MG PO (17:45)
[2023-11-15] MEDS: SODIUM CHLORIDE 0.9% 1,000 ML 100 ML IV (17:53)
[2023-11-15 20:00] VITALS: BP 135/60; PULSE 64; RESP 20; TEMP 36.9; O2SAT 96
[2023-11-15] MEDS: ACETAMINOPHEN 325 MG TABLET 650 MG PO (21:56)
[2023-11-15 22:40] LABS: PTT Partial Thromboplastin Tim 44 SECONDS (25.1-36.5)
[2023-11-15] MEDS: MELATONIN 3 MG TABLET PO (23:17)
[2023-11-16] VITALS (7 sets, daily range): BP systolic 135–171; BP diastolic 59–75; PULSE 57–70; RESP 19–28; TEMP 36.2–37.3; O2SAT 96–98
[2023-11-16] MEDS: SODIUM CHLORIDE 0.9% 1,000 ML 100 ML IV (03:45)
[2023-11-16 04:28] LABS: Add Manual Diff / Slide Review NO; Basophils Absolute Auto 200 /uL (0-100); Basophils Percent Auto 1.5 % (0-2); Eosinophils Absolute Auto 200 /uL (0-450); Eosinophils Percent Auto 1.9 % (2-4); Hematocrit 30.1 % (36-46); Hemoglobin 9.9 g/dL (12.0-16.0); Lymphocytes Absolute Auto 1600 /uL (1100-4500); Mean Corpuscular Hemoglobin 26.6 PG (26-34); Mean Corpuscular Volume 80.5 fL (80-100); Monocytes Absolute Auto 800 /uL (0-900); Monocytes Percent Auto 6.5 % (3-14); Neutrophils Absolute Auto 9400 /uL (1500-7000); Neutrophils Percent Auto 77.1 % (50-75); Platelet Count 274 X10^3/uL (150-400); Red Blood Cell Count 3.74 X10^6/uL (4.0-5.2); Red Cell Distribution Width 14.8 % (11.6-14.8); White Blood Cell Count 12.2 X10^3/uL (4.5-11.0)
[2023-11-16 04:38] LABS: PTT Partial Thromboplastin Tim 47 SECONDS (25.1-36.5)
[2023-11-16 04:39] LABS: BUN Creatinine Ratio 31.6 (6-22); Blood Urea Nitrogen 30 mg/dL (7-17); Calcium 8.9 mg/dL (8.4-10.2); Carbon Dioxide 23 mmol/L (22-32); Chloride 105 mmol/L (98-107); Estimated Glomerular Filt Rate > 60 mL/min (>60); Glucose 246 mg/dL (80-110); HEMOLYSIS < 15 (0-50); Potassium 4.4 mmol/L (3.4-5.1); Sodium 134 mmol/L (137-145)
--- NOTE | 2023-11-16 05:02 | PC.NURSE ---
04:15- APTT 47, no changes.
[2023-11-16] MEDS: HEPARIN DRIP 25,000 UNIT/500 ML IV.SOLN 21 UNIT IV (07:02)
[2023-11-16 08:11] LABS: Procalcitonin 0.05 ng/mL (<0.5)
[2023-11-16] MEDS: INSULIN LISPRO 100 UNIT/ML 3ML VIAL SUBCUT ×4 (08:28→21:17)
[2023-11-16] MEDS: CLOPIDOGREL 75 MG TABLET PO (08:42)
[2023-11-16] MEDS: dilTIAZem CD 120 MG CAP 240 MG PO ×2 (08:42→21:15)
[2023-11-16] MEDS: SODIUM CHLORIDE 0.9% FLUSH 10 ML IV ×2 (08:44→21:30)
[2023-11-16] MEDS: INSULIN GLARGINE 100 UNIT/ML 3ML PEN 30 UNIT SUBCUT ×2 (08:45→21:18)
[2023-11-16] MEDS: METOPROLOL ER 50 MG TABLET PO (10:45)
[2023-11-16 11:04] LABS: PTT Partial Thromboplastin Tim 47 SECONDS (25.1-36.5)
--- NOTE | 2023-11-16 14:39 | DI.RAD.S_ITS ---
PROCEDURE: XR CHEST 1V INDICATIONS: hypoxia TECHNIQUE: One view of the chest was acquired. COMPARISON: [facility], CR, XR CHEST 1V, 08/27/2023, 17:52. [facility], CR, XR CHEST 1V, 10/23/2023, 16:21. [facility], CR, XR CHEST 1V, 11/10/2023, 14:39. FINDINGS: Surgical changes and devices: None. Lungs and pleura: Mild generalized interstitial prominence can be seen. No large pneumothorax or large pleural effusions are seen. Low lung volumes are noted. This causes a crowded appearance to the lung markings and limits evaluation. Mediastinum: Mediastinal contours appear normal. Heart size is normal. Bones and chest wall: No suspicious bony lesions. Overlying soft tissues appear unremarkable. IMPRESSION: Low lung volumes with mild generalized interstitial prominence seen. A mild degree of pulmonary edema is suspected, although differential diagnosis includes artifact and atypical infiltrate. Dictated by: Marvel Roa M.D. on 11/16/2023 at 14:03 Approved by: Marvel Roa M.D. on 11/16/2023 at 14:04
--- NOTE | 2023-11-16 14:45 | PC.NURSE ---
pt placed on 2l/nc for c/o inability to get enough oxygen; Dr David notified and CXR ordered; o2 sat now 97-98% and pt reports ease of breathing; does not appear to be in any distress
[2023-11-16] MEDS: FUROSEMIDE 40 MG/4 ML VIAL IV (15:44)
--- NOTE | 2023-11-16 15:47 | P.PN_ITS ---
Subjective Subjective Interval history: Patient more SOB today. Calculated that she got a total of 4L of NS with heparin drip since admission. CXR shows pulm edema. Lasix given. Exam Vital Signs (past 8 hours): - 11/16/23 08:00 11/16/23 10:45 11/16/23 12:00 Temperature 97.7 F 97.6 F Pulse Rate 70 65 63 Respiratory Rate 23 28 H Blood Pressure 171/67 H 135/59 L 136/61 Pulse Oximetry 97 96 Oxygen Delivery Method Oxygen Flow Rate 0 0 11/16/23 12:52 11/16/23 14:35 Temperature Pulse Rate 67 Respiratory Rate Blood Pressure 136/61 Pulse Oximetry Oxygen Delivery Method Nasal Cannula Oxygen Flow Rate Oxygen Delivery Method Nasal Cannula Oxygen Flow Rate 0 Narrative Exam Narrative: NAD, no acute distress. Lungs with bibasilar crackles. Heart is irregular, soft murmur. Abdomen is soft, nontender. No leg edema. Objective Labs 11/16/23 04:15 11/16/23 04:15 Labs: Laboratory Results - last 24 hr 11/15/23 11/15/23 11/16/23 16:40 22:20 04:15 WBC 11.4 H 12.2 H RBC 3.92 L 3.74 L Hgb 10.4 L 9.9 L Hct 32.0 L 30.1 L MCV 81.5 80.5 MCH 26.5 26.6 MCHC 32.6 33.0 RDW 14.9 H 14.8 Plt Count 297 274 Neut % (Auto) 76.5 H 77.1 H Lymph % (Auto) 14.4 L 13.0 L Porter % (Auto) 6.1 6.5 Eos % (Auto) 2.3 1.9 L Baso % (Auto) 0.7 1.5 Neut # (Auto) 8700 H 9400 H Lymph # (Auto) 1600 1600 [place] # (Auto) 700 800 Eos # (Auto) 300 200 Baso # (Auto) 100 200 H APTT 53 H 44 H D 47 H Sodium 135 L 134 L Potassium 4.6 4.4 Chloride 102 105 Carbon Dioxide 29 23 BUN 32 H 30 H Creatinine 1.15 H 0.95 Estimated GFR 51 L > 60 BUN/Creatinine Ratio 27.8 H 31.6 H Glucose 233 H 246 H Calcium 9.3 8.9 Procalcitonin 0.05 11/16/23 10:38 WBC RBC Hgb Hct MCV MCH MCHC RDW Plt Count Neut % (Auto) Lymph % (Auto) Porter % (Auto) Eos % (Auto) Baso % (Auto) Neut # (Auto) Lymph # (Auto) Porter # (Auto) Eos # (Auto) Baso # (Auto) APTT 47 H Sodium Potassium Chloride Carbon Dioxide BUN Creatinine Estimated GFR BUN/Creatinine Ratio Glucose Calcium Procalcitonin [facility] Medical History Acute kidney injury Appendicitis with perforation Vertigo Sedentary lifestyle Stage II pressure ulcer of sacral region (~02/2023) Hyperlipidemia Thyroid nodule Incontinence Breast screening Abnormal mammogram of left breast NSTEMI (non-ST elevated myocardial infarction) (09/2018) Recent heart attack Coronary artery disease Osteopenia (05/20/14) Knee osteoarthritis Hypertension (~2011) Diabetes mellitus (~2011) Rheumatoid arthritis Colon polyps (08/31/14) Surgical History History of bilateral knee replacement (2009) History of colonoscopy with polypectomy (08/31/14) History of left cataract surgery (03/23/15) History of right cataract surgery (04/06/15) Anesthesia History of knee replacement History of knee replacement Status post delivery (12/21/78) Family History Brother Drowning Father Heart disease Mother Diabetes mellitus Sister Bone cancer Sister Bone cancer Social History marital status: household members: family and children Smoking Status: Never smoker alcohol intake: current substance use type: does not use Assessment & Plan Assessment & Plan narrative: 1. Atrial fibrillation with rapid response, present on admission and RVR resolved. 2. Medication noncompliance, present on admission and active. 3. NSTEMI, present on admission and improved. Stress test showed moderate size, severe infarction of distal inferior wall and inferior apex and small reversibility in the basal inferolateral wall and distal anteroseptum. Needs heart cath. Switched apixaban to heparin drip in preparation for heart cath. 4. Diabetes mellitus 2, insulin dependent. Present on admission and active. 5. CAD with remote NSTEMI (09/2018) and LAD Stent 2019, stable. 6. TAVR 2020, present on admission and stable. 7. Moderate to severe Mitral stenosis, present on admission and active. Plan: Case has been discussed with primary insurance examining clerk (Abraham) since the day after admission. The patient did have relatively prompt rate control however she did have elevations of troponins concerning for NSTEMI. His initial advice was to obtain an echo and rule out wall motion abnormalities. There were no wall motion abnormalities, stress test was ordered (2 days study due to BMI) and read by him as notable for an inferior defect consistent with DC as well as james- infarct ischemia. He recommends transfer for angiogram at [facility]. This message was conveyed at about 12:30 p.m. on November 14, I did contact [facility] who is currently boarding over 10 patients. She is in the queue for transfer. The patient has been informed and understands the situation and plan. [facility] also contacted and pending transfer. Quality VTE Deep Vein Thrombosis/Pulmonary Embolism Present on Admission: No
[2023-11-16] MEDS: ATORVASTATIN 20 MG TABLET 80 MG PO (17:00)
--- NOTE | 2023-11-16 18:52 | PC.NURSE ---
pt has put out 1725ml urine since her dose of lasix; her o2 sat is 99% on /nc; she reports that her breathing is improved
[2023-11-16] MEDS: MELATONIN 3 MG TABLET PO (21:15)
[2023-11-17 00:24] VITALS: BP 120/58; PULSE 65; RESP 21; TEMP 37.1; O2SAT 95
[2023-11-17 04:00] VITALS: BP 119/56; PULSE 52; RESP 17; TEMP 36.5; O2SAT 99
[2023-11-17 04:56] LABS: Add Manual Diff / Slide Review NO; Basophils Absolute Auto 100 /uL (0-100); Basophils Percent Auto 0.6 % (0-2); Eosinophils Absolute Auto 200 /uL (0-450); Eosinophils Percent Auto 1.9 % (2-4); Hematocrit 30.7 % (36-46); Hemoglobin 10.3 g/dL (12.0-16.0); Lymphocytes Absolute Auto 1700 /uL (1100-4500); Lymphocytes Percent Auto 15.7 % (25-40); Mean Corpuscular HGB Conc 33.4 % (30-36); Mean Corpuscular Hemoglobin 26.8 PG (26-34); Mean Corpuscular Volume 80.4 fL (80-100); Monocytes Absolute Auto 1000 /uL (0-900); Monocytes Percent Auto 8.9 % (3-14); Neutrophils Absolute Auto 8100 /uL (1500-7000); Neutrophils Percent Auto 72.9 % (50-75); Platelet Count 286 X10^3/uL (150-400); Red Blood Cell Count 3.82 X10^6/uL (4.0-5.2); Red Cell Distribution Width 14.8 % (11.6-14.8); White Blood Cell Count 11.1 X10^3/uL (4.5-11.0)
[2023-11-17 05:00] LABS: PTT Partial Thromboplastin Tim 43 SECONDS (25.1-36.5)
[2023-11-17 05:01] LABS: BUN Creatinine Ratio 26.7 (6-22); Blood Urea Nitrogen 27 mg/dL (7-17); Calcium 9.2 mg/dL (8.4-10.2); Carbon Dioxide 27 mmol/L (22-32); Chloride 102 mmol/L (98-107); Estimated Glomerular Filt Rate 60 mL/min (>60); Glucose 149 mg/dL (80-110); HEMOLYSIS < 15 (0-50); Potassium 3.8 mmol/L (3.4-5.1); Sodium 134 mmol/L (137-145)
[2023-11-17] MEDS: HEPARIN DRIP 25,000 UNIT/500 ML IV.SOLN 22 UNIT IV (05:50)
--- NOTE | 2023-11-17 06:27 | PC.NURSE ---
APPT at 43. Increased heparin drip to 22 u/hr at 0550. APPT to be redrawn at 1200.
[2023-11-17 08:00] VITALS: BP 120/84; PULSE 60; RESP 23; O2SAT 99
[2023-11-17 08:08] VITALS: BP 120/84; PULSE 71
[2023-11-17] MEDS: CLOPIDOGREL 75 MG TABLET PO (08:08)
[2023-11-17] MEDS: METOPROLOL ER 50 MG TABLET PO (08:08)
[2023-11-17] MEDS: INSULIN LISPRO 100 UNIT/ML 3ML VIAL SUBCUT ×2 (08:08→12:30)
[2023-11-17] MEDS: FUROSEMIDE 20 MG/2 ML VIAL IV (08:08)
[2023-11-17] MEDS: dilTIAZem CD 120 MG CAP 240 MG PO (08:08)
[2023-11-17] MEDS: INSULIN GLARGINE 100 UNIT/ML 3ML PEN 30 UNIT SUBCUT (08:09)
[2023-11-17] MEDS: SODIUM CHLORIDE 0.9% FLUSH 10 ML IV (08:11)
[2023-11-17 08:38] VITALS: PULSE 65
--- NOTE | 2023-11-17 10:14 | PM.DS.1 ---
History of Present Illness History of Present Illness Date Patient Seen: 11/17/23 Time Patient Seen: 10:15 Date of Onset of Symptoms: 11/10/23 Chief complaint: CP/AFIB Narrative: Per admitting provider, The patient is a 73-year-old female with a history of atrial fibrillation who is on chronic apixaban. She also has a history of insulin-dependent diabetes. She presented today with palpitations and was found to be in atrial fibrillation with rapid response. She notes she has not been taking medications for about 2 days. This relates to her neighbor who usually helps her having been on vacation. Today she developed acute dyspnea and chest pressure with palpitations and presented to the ED. This was going on at home for several hours before she called for help. EMS did bring her into the emergency department with diltiazem giving EN route. The patient had declined cardioversion in the past. She was given IV metoprolol in the emergency department with minimal effect. She was then started on a diltiazem bolus and drip with better rate control. She has no neurologic symptoms. She also has no evidence of acute coronary syndrome. She has had some intermittent chest pain. This has been transient. She does have a prescription for sublingual nitroglycerin which has not been filled. She denies recent cardiac testing. Her initial troponin was normal and her electrocardiogram was nonacute in terms of ST depressions. Discharge Providers Provider Date of admission: 11/10/23 16:18 Discharge Date: 11/17/23 Primary care physician: Chino Ruggiero MD Consults: 11/10/23 16:54 Consult to Physical Therapy Evaluate & Treat Comment: Physician Instructions: Evaluate and Treat 11/11/23 10:05 Consult to Physical Therapy Evaluate & Treat Comment: Physician Instructions: Evaluate and Treat 11/12/23 10:05 Consult to Occupational Therapy Evaluate & Treat Comment: Physician Instructions: Evaluate and treat 11/12/23 10:31 Consult to Occupational Therapy Evaluate & Treat Comment: Physician Instructions: Evaluate and treat 11/12/23 10:53 Consult to Home Health Routine Comment: Reason For Exam: PT/OT/RN/LICENSED PSYCHOLOGIST DIRECTOR Discharge provider: Dave Lua DO Summary Hospital Course Discharge Diagnosis: 1. Atrial fibrillation with rapid response, present on admission and RVR resolved. 2. Medication noncompliance, present on admission and active. 3. NSTEMI, present on admission and improved. Stress test showed moderate size, severe infarction of distal inferior wall and inferior apex and small reversibility in the basal inferolateral wall and distal anteroseptum. Needs heart cath. Switched apixaban to heparin drip in preparation for heart cath. 4. Diabetes mellitus 2, insulin dependent. Present on admission and active. 5. CAD with remote NSTEMI (09/2018) and LAD Stent 2019, stable. 6. TAVR 2020, present on admission and stable. 7. Moderate to severe Mitral stenosis, present on admission and active. Hospital Course: 73 F with PMH of afib, CAD, DM2, prior TAVR, mitral stenosis who presented with chest pain and palpitations with shortness of breath. Admitted initially for afib with RVR, then started to have elevated troponins and abnormal stress testing consistent with NSTEMI. Please see hospital course by problem list noted below. 1. Atrial fibrillation with RVR, improved - received prompt rate control with diltiazem infusion initially which was weaned off on HD#1 (11/11). - currently rate controlled with 50 mg of metoprolol succinate daily and home diltiazem 240 mg BID. - home eliquis has been held since initiation of heparin infusion. 2. NSTEMI with acute diastolic heart failure - initial troponin in the ER was negative. Peaked the following day at 0.49. Echocardiogram showed progression of aortic regurgitation, mitral stenosis with EF of 65-70%, No wall motion abnormalitites were noted but quality was poor. - given echo results, cardiology recommended further evaluation with stress testing. - Stress testing was a 2 day study, pharmacological. This study was notable for an inferior defect as well as james-infarct ishcemia. Cardiology recommended transfer for [facility] in the early afternoon of 11/14. Patient continued eliquis until 11/14, was transitioned to heparin infusion on 11/15/23 in anticipation for [facility]. - patient with prior NSTEMI 09/2018, and LAD stent in 2019, TAVR in 2020. Valve appeared well seated on echo. - continued home plavix 75 mg daily, and home atorvastatin 80 mg. - Furosemide x1 dose IV was given 11/16 for mild dyspnic symptoms with improvement. - initially transfer search started on 11/14 was focused on surrounding hospitals, expended search on 11/17 with planned transfer to [facility] on 11/17/2023. - patient's primary hospital staff pharmacist Dr. Larios out of [facility] in [place], though the last note I have in our EMR is from 2020. 3. IDDM, type 2 - continues on lantus, home 40 U dosing has been increased since admission to 30 U BID. - continues on sliding scale - takes Jardiance and metforming at home,have been held since admission. - AM glucose this morning 145, meal time blood sugar in the afternoon and evening the past few days have been elevated (230s range) consider adding meal time lispro dosing or resume home oral medications at accepting facility depending on timing of LHC. Plan: Transfer to [facility] with plan for LHC, not available at [facility]. Discussed with accepting hospitalist at [facility]. Time Spent with Patient Time spent: Greater than 30 minutes Exam Vital Signs (past 8 hours): - 11/17/23 04:00 11/17/23 08:00 11/17/23 08:08 Temperature 97.7 F Pulse Rate 52 L 60 71 Respiratory Rate 17 23 Blood Pressure 119/56 L 120/84 120/84 Pulse Oximetry 99 99 Oxygen Delivery Method 11/17/23 08:38 11/17/23 08:48 Temperature Pulse Rate 65 Respiratory Rate Blood Pressure Pulse Oximetry Oxygen Delivery Method Room Air Oxygen Delivery Method Room Air Oxygen Flow Rate 2 Narrative Exam Narrative: NAD, no acute distress. Lungs with bibasilar crackles. Heart is irregular, soft murmur. Abdomen is soft, nontender. No leg edema. Objective Imaging Echo: Radiologist's impression: :Name: ANUJA ARCE Study Date: 11/12/2023 Height: 62 in : :[facility] ReadingLocation: Weight: 234 lb: : Gender: Female BSA: 2.0 m2 : :: 1950 Age: 73 yrs BP: 97/51 mmHg: :Reason For Study: Elevated Troponin : :Ordering Physician: EMIL, : :RICHARD Fowler Performed By: Eloina Duke : :Referring: RICHARD STEIN : + + Interpretation Summary Technically difficult study. Mild concentric left ventricular hypertrophy with ejection fraction 65-70%. The left atrium is moderately dilated. The right atrium is mildly dilated. The boprosthetic aortic valve is well-seated. Mild to moderate aortic regurgitation. Moderate to severe mitral annular calcification. Moderate to severe mitral stenosis. The mitral valve mean gradient is 9.0 mmHg. Mild tricuspid regurgitation. The right ventricular systolic pressure is estimated to be at least 40 mmHg based on an estimated right atrial pressure of 3 mm Hg. Comparison is made with the echocardiogram of 06/05/2023, aortic regurgitation and mitral stenosis have progressed. Procedure: A two-dimensional transthoracic echocardiogram with color flow and Doppler was performed. The study quality was technically difficult. Definity was not used due to history of possible allergic reaction. Comparison is made with the echocardiogram of 06/05/2023. The patient was in atrial fibrillation with heart rates between 59-72 bpm during the exam. Left Ventricle: There is mild concentric left ventricular hypertrophy. The ejection fraction is estimated to be 65-70%. There are no focal wall motion abnormalities. There are no obvious focal wall motion abnormalities noted but poor endocardial definition reduces the sensitivity for the detection of such. Diastolic function could not be accurately assessed due to confounding valvular disease. Right Ventricle: The right ventricle grossly appears normal in size with probable normal systolic function. Atria: The left atrium is moderately dilated. The right atrium is mildly dilated. There is no Doppler evidence for an interatrial shunt. Mitral Valve: The mitral valve leaflets are moderately calcified. There is moderate to severe mitral annular calcification. There is moderate to severe mitral stenosis. The mitral valve mean gradient is 9.0 mmHg. There is trace mitral regurgitation. Aortic Valve: There is a bioprosthetic aortic valve. The prosthetic aortic valve is well-seated. The peak aortic velocity is 1.8 m/sec. The aortic valve mean gradient is 18 mmHg. There is mild to moderate aortic regurgitation. Tricuspid Valve: The tricuspid valve is not well visualized, but is grossly normal. There is mild tricuspid regurgitation. The right ventricular systolic pressure is estimated to be at least 40 mmHg based on an estimated right atrial pressure of 3 mm Hg. Pulmonic Valve: The pulmonic valve leaflets are thin and pliable; valve motion is normal. There is no pulmonic valvular regurgitation. Great Vessels: The dimensions of the ascending aorta are normal. The IVC is of normal diameter and collapses greater than 50% with a sniff. This suggests a low right atrial pressure of 3 mm Hg. Pericardium/ Pleura There is no pericardial effusion. There is no pleural effusion. MMode/2D Measurements & Calculations LVIDd: 4.3 cm LVOT diam: 2.0 cm LVIDs: 2.7 cm asc Aorta Diam: 3.7 cm FS: 35.7 % Ao Arch Diam (Prox Trans): 3.0 cm IVSd: 1.1 cm LVPWd: 1.3 cm LV florez. diameter/BSA (cm/m^2): 2.1 LV sys. diameter/BSA (cm/m^2): 1.3 LA A2 area: 27.2 cm2 RA long axis: 5.7 cm LA A4 area: 26.2 cm2 RA area: 23.7 cm2 LA length (vol): 5.9 cm RA vol: 83.3 ml LA vol: 101.8 ml RA : 40.8 ml/m2 LA vol index: 49.8 ml/m2 IVC diam: 1.6 cm RVD1 (basal): 3.8 cm TAPSE: 1.7 cm Doppler Measurements & Calculations Ao V2 max: 271.3 cm/sec LVOT Max Young: 86.1 cm/sec Ao V2 mean: 204.9 cm/sec LV V1 max P.0 mmHg Ao max P.5 mmHg LV V1 VTI: 22.1 cm Ao mean P.0 mmHg BRIAN(I,D): 1.1 cm2 Ao V2 VTI: 62.4 cm BRIAN(V,D): 0.98 cm2 sev ratio: 0.35 BRIAN indexed to BSA (cm^2/m^2): 0.54 AI P1/2t: 584.3 msec AI dec slope: 206.5 cm/sec2 MV E max young: 188.2 cm/sec TR max young: 304.1 cm/sec MV A max young: 0.52 cm/sec TR max P.0 mmHg MV E/A: 361.9 PA V2 max: 90.6 cm/sec Med Peak E' Young: 4.4 cm/sec PA V2 mean: 70.3 cm/sec E/E' med: 43.1 PA mean P.1 mmHg Lat Peak E' Young: 3.6 cm/sec PA pr(Accel): 41.3 mmHg E/E' lat: 52.1 E/e' average: 47.6 MV dec time: 0.53 sec MVA(VTI): 0.96 cm2 MV V2 mean: 130.2 cm/sec SV(LVOT): 68.5 ml MV mean P.0 mmHg MV V2 VTI: 71.1 cm Stress Test: Radiologist's impression: Patient: Anuja Arce MR#: [id number] : 1950 Acct:[id number] Age/Sex: 73 / F Date of Service: 11/12/23 Loc: [facility] 226-1 Accession Number: [id number] Procedure: NM briseida perf SPECT R&S pharm Ordering Provider: Richard Stein MD DATE OF SERVICE: 11/14/2023 PROCEDURE: Pharmacological perfusion study. INDICATIONS: AFib with fast ventricular rate, known LAD stent, abnormal troponin. RADIOPHARMACEUTICAL: 27.1 millicurie technetium-99m Myoview IV was injected at stress and 26.3 millicurie technetium-99m Myoview IV was injected at rest. CARDIAC STRESS: The patient underwent IV Lexiscan perfusion study under the supervision of attending staff using standard intravenous Lexiscan as per protocol. The patient remained hemodynamically stable. Baseline blood pressure 130/70. Baseline rhythm sinus. During stress, no convincing ischemic changes seen. No significant arrhythmias. No chest pain. Had minimal dyspnea. RAW DATA: There is a breast shadow seen. GATED STUDY: Stress LV ejection fraction appears to be 84; however, there is an inferoapical perfusion defect. Rest of the segments appears to be elsi vigorously. Resting end-diastolic volume 91 mL. TID ratio 1.26. Lung/heart ratio abnormal which is 0.54. MYOCARDIAL PERFUSION SCAN: Please note there is no stress prone images. Stress supine and resting supine images were compared to each other. There appears to be moderate size, severely decreased perfusion of distal inferior wall extending into the inferior apex which is predominantly fixed. Along with that there is a small size, mild reversibility in the basal inferolateral wall as well as distal anteroseptum. CONCLUSION: This is an abnormal myocardial perfusion study consistent with moderate size, severe infarction of distal inferior wall and inferior apex and small reversibility in the basal inferolateral wall and distal anteroseptum. On gated study, there is a decreased perfusion in this area; however, there is a large breast shadow seen as well. There are no stress prone images. Some of the tissue component cannot be ruled out; however, based on gated findings and perfusion findings, likely true defect. Discussed the plan with the hospitalist team. In view of abnormal troponin, known history of coronary artery disease, consider further evaluation with invasive workup like left heart catheterization. Labs 11/17/23 04:25 11/17/23 04:25 Labs: Laboratory Results - last 24 hr 11/16/23 11/17/23 10:38 04:25 WBC 11.1 H RBC 3.82 L Hgb 10.3 L Hct 30.7 L MCV 80.4 MCH 26.8 MCHC 33.4 RDW 14.8 Plt Count 286 Neut % (Auto) 72.9 Lymph % (Auto) 15.7 L [place] % (Auto) 8.9 Eos % (Auto) 1.9 L Baso % (Auto) 0.6 Neut # (Auto) 8100 H Lymph # (Auto) 1700 [place] # (Auto) 1000 H Eos # (Auto) 200 Baso # (Auto) 100 APTT 47 H 43 H Sodium 134 L Potassium 3.8 Chloride 102 Carbon Dioxide 27 BUN 27 H Creatinine 1.01 Estimated GFR 60 BUN/Creatinine Ratio 26.7 H Glucose 149 H Calcium 9.2 PFSH Medical History Acute kidney injury Appendicitis with perforation Vertigo Sedentary lifestyle Stage II pressure ulcer of sacral region (~02/2023) Hyperlipidemia Thyroid nodule Incontinence Breast screening Abnormal mammogram of left breast NSTEMI (non-ST elevated myocardial infarction) (09/2018) Recent heart attack Coronary artery disease Osteopenia (05/20/14) Knee osteoarthritis Hypertension (~2011) Diabetes mellitus (~2011) Rheumatoid arthritis Colon polyps (08/31/14) Surgical History History of bilateral knee replacement (2009) History of colonoscopy with polypectomy (08/31/14) History of left cataract surgery (03/23/15) History of right cataract surgery (04/06/15) Anesthesia History of knee replacement History of knee replacement Status post delivery (12/21/78) Family History Brother Drowning Father Heart disease Mother Diabetes mellitus Sister Bone cancer Sister Bone cancer Social History marital status: household members: family and children Smoking Status: Never smoker alcohol intake: current substance use type: does not use Discharge Plan Discharge Plan Patient Disposition: [facility] Provider Discharge Comment: See discharge summary Discharge Health Status Precautions: [facility] Diet/Activity/Treatments Diet: Diet as Tolerated and Carb-consistent/Diabetic Liquid consistency: Normal/Thin Food texture: Regular Discharge Data Primary Care Provider: Chino Ruggiero VTE Deep Vein Thrombosis/Pulmonary Embolism Present on Admission: No
[2023-11-17 11:30] LABS: PTT Partial Thromboplastin Tim 45 SECONDS (25.1-36.5)
[2023-11-17 12:31] VITALS: BP 138/63; PULSE 57
--- NOTE | 2023-11-17 14:01 | CM.DPNOTE ---
DC NOte Transfer to today. No needs from this CM team JW
--- NOTE | 2023-11-17 14:22 | PC.NURSE ---
Transfer note: Pt A&Ox4, agreeable to transfer plan. VSS, heparin drip titrated per protocol based off PTT (see MAR). Report given to Dana at transfer center at 1415. Pt SBA to stretcher, belongings in pt's possession. Report given to transfer team. Pt switched to transfer team monitors and IV. Pt wheeled in stretcher by transport team to transport vehicle at approximately 1420.
== END 2023-11-17 14:20 | disposition short-term general hospital (02) | DRG 280 ==
LOC: ED 16:18 → AC 16:18 → ICU 16:48
PROVIDERS: Student in an Organized Health Care Education/Training Program; Admitting Provider Hospitalist; Emergency Provider Emergency Medicine; PCP Family Medicine; Referring Provider Emergency Medicine; Visit Provider Hospitalist
DX: I48.91 Unspecified atrial fibrillation (principal); I21.4 Non-ST elevation (NSTEMI) myocardial infarction; I50.31 Acute diastolic (congestive) heart failure; Z68.41 Body mass index [BMI] 40.0-44.9, adult; E11.9 Type 2 diabetes mellitus without complications; I25.10 Atherosclerotic heart disease of native coronary artery without angina pectoris; I25.2 Old myocardial infarction; E66.01 Morbid (severe) obesity due to excess calories; I11.0 Hypertensive heart disease with heart failure; E78.5 Hyperlipidemia, unspecified; I05.0 Rheumatic mitral stenosis; Z79.84 Long term (current) use of oral hypoglycemic drugs; Z95.2 Presence of prosthetic heart valve; Z79.4 Long term (current) use of insulin; Z91.148 Patient's other noncompliance with medication regimen for other reason; Z79.01 Long term (current) use of anticoagulants
CPT/HCPCS: 36415; 36592; 71045; 78452; 80048; 80053; 82550; 82962; 83690; 83735; 84145; 84484; 85025; 85730; 93005; 93017; 93306; 96365; 96366; 97116; 97161; 97165; 97530; 97535; 99284; A9502; J1644; J1815; J1940; J2785

== ENCOUNTER 2023-12-10 12:33 | Emergency (ER) | payer OTHER, SELFPAY ==
[2023-11-10 19:52] VITALS: BMI 43.0
[2023-12-10 12:40] VITALS: BP 119/72; PULSE 64; RESP 18; TEMP 36.6; O2SAT 97; BMI 41.1
--- NOTE | 2023-12-10 12:53 | DI.RAD.S_ITS ---
PROCEDURE: XR TOE LT MIN 2V INDICATIONS: Left toe erythema, swelling TECHNIQUE: 3 views of the left 1st toe(s) acquired. COMPARISON: None. FINDINGS: Bones: No fractures or dislocations. No suspicious bony lesions. Soft tissues: No suspicious soft tissue densities. IMPRESSION: No acute fracture. No osseous lesion. If symptoms and/or clinical suspicion for pathology persist, further assessment with repeat, or advanced imaging (e.g., CT, MRI, or bone scan) may be helpful for further assessment. Dictated by: Cindi Reese M.D. on 12/10/2023 at 13:44 Approved by: Cindi Reese M.D. on 12/10/2023 at 13:44
[2023-12-10] MEDS: IBUPROFEN 400 MG TABLET 800 MG PO (12:56)
--- NOTE | 2023-12-10 12:57 | ED.LOWEXIN ---
HPI - Extremity Injury (Lower) <Naman Gamez PA-C - Last Filed: 12/10/23 15:24> General Chief Complaint: Extremity Injury, Lower Stated Complaint: sent by dr to check toe is diabetic Time Seen by Provider: 12/10/23 12:39 Source: patient Mode of arrival: Wheelchair History of Present Illness HPI Narrative: 73-year-old female with past medical history a fibrillation, diabetes, thyroid nodule, stage II pressure ulcer of the sacral region, aortic stenosis, TIA, CAD, hypertension presents to the ED with 1 week of left-sided big toe pain. Patient states that she can not recall any trauma. Patient also does endorse some diabetic neuropathy and numbness in her toes. Patient states that the left big toe has been painful for about a week, however has been red and swollen over the last 3 days. Patient went into see her criminalist technician Dr. Black today who sent her to the ED for further evaluation. Patient denies fever, chills, nausea, vomiting, chest pain, shortness of breath. Patient is able to bear weight and walk. No new numbness. No tingling, weakness. Related Data Home Medications Medication Instructions Recorded Confirmed atorvastatin 80 mg tablet (Lipitor) 80 mg PO QPM 06/02/23 11/10/23 insulin glargine 100 unit/mL (3 40 unit SUBCUT QAM 06/02/23 11/10/23 mL) subcutaneous pen (Lantus Solostar U-100 Insulin) cefpodoxime 200 mg tablet 400 mg PO BID 11/10/23 11/10/23 empagliflozin 25 mg tablet 25 mg PO DAILY 11/10/23 11/10/23 (Jardiance) Previous Rx's Medication Instructions Recorded Parking Permit... #1 ea 09/08/20 pen needle, diabetic 29 gauge x #100 ea 03/09/22 12 (Comfort EZ Pen [place]) insulin lispro 100 unit/mL 1 sliding scale dose SUBCUT 04/24/23 subcutaneous pen (Humalog KwikPen USEASDIRECTD #15 mL (U-100) Insulin) apixaban 5 mg tablet (Eliquis) 5 mg PO BID #180 tabs 10/19/23 blood sugar diagnostic (True #100 strips 10/30/23 Metrix Glucose Test Strip) clopidogrel 75 mg tablet 75 mg PO QAM #90 tabs 11/07/23 diltiazem HCl 120 mg 240 mg (2 x 120 mg) PO BID #180 11/07/23 capsule,extended release 12 hr caps metformin 500 mg tablet 1,000 mg (2 x 500 mg) PO BID #360 11/07/23 tabs metoprolol succinate 50 mg 50 mg PO DAILY #90 tabs 11/07/23 tablet,extended release 24 hr nitroglycerin 0.4 mg sublingual 0.4 mg sublingual Q5-15M PRN chest 11/07/23 tablet pain #90 tabs doxycycline hyclate 100 mg capsule 100 mg PO BID 10 days #20 caps 12/10/23 Allergies Allergy/AdvReac Type Severity Reaction Status Date / Time Sulfa (Sulfonamide Allergy Mild RASH Verified 11/10/23 16:10 Antibiotics) Review of Systems <Naman Gamez PA-C - Last Filed: 12/10/23 15:24> Constitutional Constitutional: Denies chills, Denies fatigue, Denies fever(s), Denies frequent falls, Denies lethargy and Denies weakness Eyes Eyes: Denies change in vision, Denies eye discharge, Denies irritation and Denies loss of vision ENT Ears, Nose, Mouth, and Throat: Denies change in voice, Denies dizziness, Denies neck pain, Denies sore throat and Denies throat swelling Cardiovascular Cardiovascular: Denies chest pain, Denies irregular heart rhythm, Denies lightheadedness, Denies palpitations, Denies dyspnea, Denies dyspnea on exertion and Denies orthopnea Respiratory Respiratory: Denies cough, Denies dyspnea, Denies dyspnea on exertion and Denies wheezing Gastrointestinal Gastrointestinal: Denies abdominal pain, Denies change in bowel habits, Denies diarrhea, Denies nausea and Denies vomiting Musculoskeletal Musculoskeletal: Denies neck pain and Denies numbness Comments: Left big toe pain, redness, swelling Integumentary/Breasts Skin/Breast: Denies pruritus, Denies erythema, Denies rash and Denies wounds Neurologic Neurologic: Denies behavioral changes, Denies confusion, Denies dizziness, Denies frequent falls, Denies loss of vision, Denies numbness and Denies weakness Psychiatric Psychiatric: Denies anxiety, Denies behavioral changes, Denies confusion, Denies depression, Denies homicidal ideation and Denies suicidal ideation Endocrine Endocrine: Denies fatigue, Denies flushing and Denies palpitations Hematologic/Lymphatic Hematologic/Lymphatic: Denies easy bruising Allergic/Immunologic Allergic/Immunologic: Denies urticaria, Denies throat swelling and Denies wheezing Patient History <Naman Gamez PA-C - Last Filed: 12/10/23 15:24> Medical History Acute kidney injury Appendicitis with perforation Vertigo Sedentary lifestyle Stage II pressure ulcer of sacral region (~02/2023) Hyperlipidemia Thyroid nodule Incontinence Breast screening Abnormal mammogram of left breast NSTEMI (non-ST elevated myocardial infarction) (09/2018) Recent heart attack Coronary artery disease Osteopenia (05/20/14) Knee osteoarthritis Hypertension (~2011) Diabetes mellitus (~2011) Rheumatoid arthritis Colon polyps (08/31/14) Surgical History History of bilateral knee replacement (2009) History of colonoscopy with polypectomy (08/31/14) History of left cataract surgery (03/23/15) History of right cataract surgery (04/06/15) Anesthesia History of knee replacement History of knee replacement Status post delivery (12/21/78) Family History Brother Drowning Father Heart disease Mother Diabetes mellitus Sister Bone cancer Sister Bone cancer Social History marital status: household members: family and children Smoking Status: Never smoker alcohol intake: current substance use type: does not use Smoking Status: Never smoker alcohol intake frequency: holidays/special occasions only Alcohol type: hard liquor Substance Use Type: does not use Exam <Naman Gamez PA-C - Last Filed: 12/10/23 15:24> Narrative Exam Narrative: Const General:?cooperative, healthy appearing and comfortable [facility] Head:?normal to inspection Ears:?hearing grossly normal bilaterally Nose:?external nose normal Face and sinus:?normal facial exam and sinuses nontender Mouth:?oral mucosae normal Throat:?posterior oropharynx normal Eyes General:?appearance normal, both eyes and all related structures Neck Neck:?normal visual inspection and no lymphadenopathy noted Resp Effort & Inspection:?normal respiratory effort Auscultation:?clear to auscultation bilaterally Cardio Rate:?regular rate Rhythm:?regular rhythm Musculoskeletal/integumentary Left big toe appears erythematous, swollen, extremely tender to touch. There is an area of fluctuance with possible purulence along the medial edge of the nail bed. Strength and sensation is intact. Full range of motion. Patient is neurovascularly intact. Neuro General:?patient alert, patient awake and patient oriented x3 Initial Vital Signs Initial Vital Signs: Vital Signs Temperature 97.8 F 12/10/23 12:40 Pulse Rate 64 12/10/23 12:40 Respiratory Rate 18 12/10/23 12:40 Blood Pressure 119/72 12/10/23 12:40 Pulse Oximetry 97 12/10/23 12:40 Oxygen Delivery Method Room Air 12/10/23 12:40 <Denisha Li MD - Last Filed: 12/11/23 07:21> Initial Vital Signs Initial Vital Signs: Vital Signs Temperature 97.8 F 12/10/23 12:40 Pulse Rate 64 12/10/23 12:40 Respiratory Rate 18 12/10/23 12:40 Blood Pressure 119/72 12/10/23 12:40 Pulse Oximetry 97 12/10/23 12:40 Oxygen Delivery Method Room Air 12/10/23 12:40 Procedures <Naman Gamez PA-C - Last Filed: 12/10/23 15:24> Abscess I/D I&D #1: Site: foot Side (if applicable): left Local Anesthetic: lidocaine 2% Amount of anesthesia used (mL): 0.5 Technique: incised with #11 blade Course <Naman Gamez PA-C - Last Filed: 12/10/23 15:24> Orders Ordered: Discontinued Medications Ibuprofen (Ibuprofen 400 Mg Tablet) 800 mg PO NOW ONE Stop: 12/10/23 12:53 Last Admin: 12/10/23 12:56 Dose: 800 mg Documented By: EFRA Vital Signs Vital signs: Vital Signs - 8 hr 12/10/23 12:40 12/10/23 15:10 Temperature 97.8 F 98.2 F Pulse Rate 64 68 Respiratory Rate 18 16 Blood Pressure 119/72 114/56 L Pulse Oximetry 97 99 Oxygen Delivery Method Room Air Room Air <Denisha Li MD - Last Filed: 12/11/23 07:21> Orders Ordered: Discontinued Medications Ibuprofen (Ibuprofen 400 Mg Tablet) 800 mg PO NOW ONE Stop: 12/10/23 12:53 Last Admin: 12/10/23 12:56 Dose: 800 mg Documented By: EFRA Vital Signs Vital signs: Vital Signs - 8 hr 12/10/23 12:40 12/10/23 15:10 Temperature 97.8 F 98.2 F Pulse Rate 64 68 Respiratory Rate 18 16 Blood Pressure 119/72 114/56 L Pulse Oximetry 97 99 Oxygen Delivery Method Room Air Room Air MDM - Extremity Injury (Lower) <Naman Gamez PA-C - Last Filed: 12/10/23 15:24> MDM Narrative Medical decision making narrative: 73-year-old female with past medical history a fibrillation, diabetes, thyroid nodule, stage II pressure ulcer of the sacral region, aortic stenosis, TIA, CAD, hypertension presents to the ED with 1 week of left-sided big toe pain. Concern for fracture/dislocation versus musculoskeletal sprain/strain versus paronychia versus cellulitis versus other. Will obtain x-ray. Will give ibuprofen for pain. Will reassess. X-ray shows no fractures or dislocation or other acute findings. I&D was performed for paronychia. Small amount of pus and blood expressed. Prescribed antibiotics. Recommend follow-up with criminalist technician. ED return precautions discussed with patient. Patient verbalized understanding. Medical records reviewed: Yes Discharge Plan Departure Patient Disposition: Home Clinical Impression: Paronychia Instructions: DI for Paronychia Activity Restrictions/Additional Instructions: You were evaluated in the ED today for toe pain. Your x-ray did not show any fractures or dislocation. It appears that you have an infection of the left big toe. The wound was incised and drained. You are being started on antibiotics. Please take the antibiotics as prescribed. Please follow-up with your criminalist technician as soon as possible. Return to the ED if you have worsening symptoms, fever, chills, persistent vomiting. Prescriptions: New doxycycline hyclate 100 mg capsule 100 mg PO BID 10 Days Qty: 20 0RF No Action (DME) pen needle, diabetic [Comfort EZ Pen [place]] 29 gauge x 1/2 needle See Rx Instructions .ROUTE .MEDSUPPLY Qty: 100 3RF Rx Instructions: use to check blood glucose 3x per day (DME) True Metrix Glucose Test Strip Strip See Rx Instructions .ROUTE .COMPLEX Qty: 100 3RF Dose Instruction: USE TO TEST BLOOD SUGAR DAILY Rx Instructions: USE TO TEST BLOOD SUGAR DAILY (DME) Parking Permit... See Rx Instructions .Route .MEDSUPPLY Qty: 1 0RF Rx Instructions: Patient meets criteria for permanent parking placard. insulin lispro [Humalog KwikPen Insulin] 100 unit/mL insulin pen 1 sliding scale dose SUBCUT USEASDIRECTD Qty: 15 3RF Rx Instructions: slide scale 2-14 units SQ TID Eliquis 5 mg tablet 5 mg PO BID Qty: 180 2RF metoprolol succinate 50 mg tablet extended release 24 hr 50 mg PO DAILY Qty: 90 3RF diltiazem HCl 120 mg capsule,extended release 12 hr 240 mg PO BID Qty: 180 3RF clopidogrel 75 mg tablet 75 mg PO QAM Qty: 90 3RF metformin 500 mg tablet 1,000 mg PO BID Qty: 360 3RF Rx Instructions: TAKE TWO TABLETS BY MOUTH TWICE DAILY nitroglycerin 0.4 mg tablet, sublingual 0.4 mg SL Q5-15M PRN (Reason: chest pain) Qty: 90 11RF Patient Comments: patient has prescription but has not taken yet Rx Instructions: until response; do not exceed 3 doses per episode atorvastatin [Lipitor] 80 mg tablet 80 mg PO QPM insulin glargine [Lantus Solostar U-100 Insulin] 100 unit/mL (3 mL) insulin pen 40 unit SUBCUT QAM Patient Comments: pt states that she takes Lantus in the morning instead of nighttime. cefpodoxime 200 mg tablet 400 mg PO BID Rx Instructions: started 10/30: prescribed for 14 days Jardiance 25 mg tablet 25 mg PO DAILY Referrals: Chino Ruggiero MD [Primary Care Provider] - Stand Alone Forms: Patient Portal/API ED Sign-out <Denisha Li MD - Last Filed: 12/11/23 07:21> Cosign ED Attending Charleneature Attestation: I was immediately available in the department for consultation throughout this patient's visit. Denisha Li MD
[2023-12-10 15:10] VITALS: BP 114/56; PULSE 68; RESP 16; TEMP 36.8; O2SAT 99
== END 2023-12-10 15:20 | disposition home or self-care (01) ==
PROVIDERS: Emergency Provider Student in an Organized Health Care Education/Training Program; PCP Family Medicine
DX: L03.032 Cellulitis of left toe (principal)
CPT/HCPCS: 10060; 73660; 99283

== ENCOUNTER 2023-12-19 04:20 | Inpatient (IN) | payer OTHER, SELFPAY ==
[2023-11-10 19:52] VITALS: BMI 43.0
[2023-12-19] VITALS (126 sets, daily range): BP systolic 81–147; BP diastolic 49–81; PULSE 66–135; RESP 13–36; TEMP 36.4–37.2; O2SAT 83–98; BMI 41.7; BMI 39.3
--- NOTE | 2023-12-19 04:32 | ED_ITS ---
HPI - Chest Pain General Chief Complaint: Chest Pain Stated Complaint: chest pain Time Seen by Provider: 12/19/23 04:20 Source: patient and EMS Mode of arrival: EMS Limitations: no limitations History of Present Illness HPI narrative: 73-year-old woman with a history of atrial fibrillation on apixaban, hyperlipidemia, diabetes, current left great toe infection for which she is on doxycycline, recent acute coronary syndrome with stent placement at [facility] 2 months ago and hospitalization at [facility] 1 month ago with atrial fibrillation with rapid ventricular response. She awoke this morning with chest pain that she states is exactly the same is the pain with the prior episodes resulted in cardiac stenting. She notes she saw her family law specialist this morning is currently on doxycycline for a left great toe infection. She has some intertrigo worse on the right side. Medics note that she had multiple medications around her house but it was not entirely clear which ones she was taking or how she was actually taking them. They gave her 12.5 mg of IV diltiazem EN route and her heart rate slowed nicely. Related Data Home Medications Medication Instructions Recorded Confirmed atorvastatin 80 mg tablet (Lipitor) 80 mg PO QPM 06/02/23 11/10/23 insulin glargine 100 unit/mL (3 40 unit SUBCUT QAM 06/02/23 11/10/23 mL) subcutaneous pen (Lantus Solostar U-100 Insulin) cefpodoxime 200 mg tablet 400 mg PO BID 11/10/23 11/10/23 empagliflozin 25 mg tablet 25 mg PO DAILY 11/10/23 11/10/23 (Jardiance) Previous Rx's Medication Instructions Recorded Parking Permit... #1 ea 09/08/20 pen needle, diabetic 29 gauge x #100 ea 03/09/2210/16 (Comfort EZ Pen [place]) insulin lispro 100 unit/mL 1 sliding scale dose SUBCUT 04/24/23 subcutaneous pen (Humalog KwikPen USEASDIRECTD #15 mL (U-100) Insulin) apixaban 5 mg tablet (Eliquis) 5 mg PO BID #180 tabs 10/19/23 blood sugar diagnostic (True #100 strips 10/30/23 Metrix Glucose Test Strip) clopidogrel 75 mg tablet 75 mg PO QAM #90 tabs 11/07/23 diltiazem HCl 120 mg 240 mg (2 x 120 mg) PO BID #180 11/07/23 capsule,extended release 12 hr caps metformin 500 mg tablet 1,000 mg (2 x 500 mg) PO BID #360 11/07/23 tabs metoprolol succinate 50 mg 50 mg PO DAILY #90 tabs 11/07/23 tablet,extended release 24 hr nitroglycerin 0.4 mg sublingual 0.4 mg sublingual Q5-15M PRN chest 11/07/23 tablet pain #90 tabs doxycycline hyclate 100 mg capsule 100 mg PO BID 10 days #20 caps 12/10/23 Allergies Allergy/AdvReac Type Severity Reaction Status Date / Time Sulfa (Sulfonamide Allergy Mild RASH Verified 11/10/23 16:10 Antibiotics) Review of Systems Review of Systems Narrative: Pertinent positive and negative findings as per HPI Patient History Medical History Acute kidney injury Appendicitis with perforation Vertigo Sedentary lifestyle Stage II pressure ulcer of sacral region (~02/2023) Hyperlipidemia Thyroid nodule Incontinence Breast screening Abnormal mammogram of left breast NSTEMI (non-ST elevated myocardial infarction) (09/2018) Recent heart attack Coronary artery disease Osteopenia (05/20/14) Knee osteoarthritis Hypertension (~2011) Diabetes mellitus (~2011) Rheumatoid arthritis Colon polyps (08/31/14) Surgical History History of bilateral knee replacement (2009) History of colonoscopy with polypectomy (08/31/14) History of left cataract surgery (03/23/15) History of right cataract surgery (04/06/15) Anesthesia History of knee replacement History of knee replacement Status post delivery (12/21/78) Family History Brother Drowning Father Heart disease Mother Diabetes mellitus Sister Bone cancer Sister Bone cancer Social History marital status: household members: family and children Smoking Status: Never smoker alcohol intake: current substance use type: does not use Smoking Status: Never smoker alcohol intake frequency: holidays/special occasions only Alcohol type: hard liquor Substance Use Type: does not use Exam Initial Vital Signs Initial Vital Signs: Vital Signs Temperature 98.9 F 12/19/23 04:20 Pulse Rate 131 H 12/19/23 04:20 Respiratory Rate 20 12/19/23 04:20 Pulse Oximetry 97 12/19/23 04:20 Oxygen Delivery Method Room Air 12/19/23 04:20 General: Chronically ill-appearing in no acute distress. Able to cooperate with exam. HEENT: Moist mucous membranes, normal sclera with reactive pupils, Neck: No JVD, supple Respiratory: Lungs are clear to auscultation, no wheezing no rales no rhonchi. Full and symmetrical air movement Cardiac: Tachycardic, irregular Abdomen: Soft, obese, she is tender to palpation in all quadrants of her abdomen. Significant intertrigo under the pannus worse on the right than left Skin: Pale, multiple areas of bruising, she is tender to touch essentially anywhere she is touched Neurologic: Grossly neurologically intact with no obvious asymmetries or abnormalities Extremities: 1+ bilateral lower extremity edema. Left great toe with a small amount of debridement done and a Band-Aid in place. No purulent discharge or erythema Psych: Cooperative, poor overall insight Course Orders Ordered: ED Orders 12/19/23 04:35 XR chest 1V Stat EKG-12 Lead Stat 12/19/23 04:37 BNP [NT-proBNP (BNP-Adult 18+)] Stat Complete Blood Count AUTO DIFF Stat Comprehensive Metabolic Panel Stat Lipase Stat Magnesium Stat PTT Partial Thromboplastin López Stat Prothrombin Time INR Stat Troponin & CK Cardiac Panel Stat DILTIAZEM (Diltiazem 125 Mg/125 Ml-D5w) 125 mg in 125 mls @ 5 mls/hr IV TITRATE RENY; Protocol Last Admin: 12/19/23 05:13 Dose: 5 mg/hr, 5 mls/hr Documented By: SONIA Discontinued Medications Aspirin (Aspirin 81 Mg Chew Tab) 324 mg PO NOW ONE Stop: 12/19/23 04:36 Last Admin: 12/19/23 05:19 Dose: Not Given Documented By: SONIA Diltiazem HCl (Diltiazem 5 Mg/Ml Sdv) 10 mg IV NOW ONE Stop: 12/19/23 04:55 Last Admin: 12/19/23 05:12 Dose: 10 mg Documented By: SONIA Vital Signs Vital signs: Vital Signs - 8 hr 12/19/23 04:20 12/19/23 04:25 12/19/23 04:26 Temperature 98.9 F Pulse Rate 131 H 131 H Respiratory Rate 20 22 Blood Pressure 108/56 L Pulse Oximetry 97 97 Oxygen Delivery Method Room Air Room Air 12/19/23 04:26 12/19/23 04:30 12/19/23 04:31 Temperature Pulse Rate 130 H 127 H 129 H Respiratory Rate 18 18 19 Blood Pressure Pulse Oximetry 96 96 97 Oxygen Delivery Method Room Air 12/19/23 04:31 12/19/23 05:00 12/19/23 05:00 Temperature Pulse Rate 132 H Respiratory Rate 20 Blood Pressure 99/57 L 107/57 L Pulse Oximetry 97 Oxygen Delivery Method 12/19/23 05:12 Temperature Pulse Rate 129 H Respiratory Rate Blood Pressure 107/57 L Pulse Oximetry Oxygen Delivery Method MDM - Chest Pain Lab Data 12/19/23 04:37 12/19/23 04:37 Labs: Lab Results 12/19/23 Range/Units 04:37 WBC 13.6 H (4.5-11.0) X10^3/uL RBC 4.64 (4.0-5.2) X10^6/uL Hgb 12.4 (12.0-16.0) g/dL Hct 37.8 (36-46) % MCV 81.6 (80-100) fL MCH 26.7 (26-34) PG MCHC 32.7 (30-36) % RDW 16.0 H (11.6-14.8) % Plt Count 288 (150-400) X10^3/uL Neut % (Auto) 73.6 (50-75) % Lymph % (Auto) 17.1 L (25-40) % [place] % (Auto) 7.7 (3-14) % Eos % (Auto) 1.1 L (2-4) % Baso % (Auto) 0.5 (0-2) % Neut # (Auto) 35355 H (7650-5453) /uL Lymph # (Auto) 2300 (5993-8342) /uL [place] # (Auto) 1000 H (0-900) /uL Eos # (Auto) 200 (0-450) /uL Baso # (Auto) 100 (0-100) /uL PT 14.3 H (9.4-12.5) SECONDS INR 1.2 (0.9-1.3) APTT 37 H (25.1-36.5) SECONDS Sodium 141 (137-145) mmol/L Potassium 3.8 (3.4-5.1) mmol/L Chloride 109 H (98-107) mmol/L Carbon Dioxide 22 (22-32) mmol/L BUN 24 H (7-17) mg/dL Creatinine 1.30 H (0.52-1.04) mg/dL Estimated GFR 44 L (>60) mL/min BUN/Creatinine Ratio 18.5 (6-22) Glucose 167 H (80-110) mg/dL Calcium 9.4 (8.4-10.2) mg/dL Magnesium 1.6 (1.6-2.3) mg/dL Total Bilirubin 0.5 (0.2-1.3) mg/dL AST 20 (14-36) IU/L ALT 15 (<35) IU/L Alkaline Phosphatase 65 (38-126) U/L Total Creatine Kinase 41 (30-135) U/L Troponin I 0.017 (0.01-0.034) ng/mL NT-Pro-B Natriuret Pep 2640 H (<125) pg/mL Total Protein 8.0 (6.3-8.2) g/dL Albumin 4.0 (3.5-5.0) g/dL Globulin 4.0 (1.7-4.1) g/dL Albumin/Globulin Ratio 1.0 (1.0-2.8) Lipase 626 H (23-300) U/L MDM Narrative Medical decision making narrative: CC: Chest pain with palpitation Complicating co-morbidities: Chronic atrial fibrillation, recent coronary stents, diabetes, hypertension, hyperlipidemia, left great toe infection currently on doxycycline Data collected from: patient, medics Medical records reviewed: Discharge summary from November 17 for atrial fibrillation is reviewed. Notable for atrial fibrillation controlled with IV diltiazem. NSTEMI with nuclear medicine stress test showing an inferior defect and james-infarct ischemia, she was transferred presumably to [facility] for left heart catheterization Differential considered: Atrial fibrillation with rapid ventricular response, medication noncompliance, sepsis, NSTEMI Exam documented above, pertinent findings include: Disheveled appearance, atrial fibrillation with rapid ventricular response, significant intertrigo under her pannus right greater than left, mild nonlocalizing abdominal pain, minimal lower extremity edema Lab Test results independently reviewed as above. Pertinent findings: CBC shows mild leukocytosis at 13.6 which is close to her baseline. No anemia Chemistries do show slight bump to creatinine with an increase from 1 a month ago to 1.3 currently. Lipase is slightly elevated at 626 BNP is elevated at who 2640 Initial troponin is undetectable Independently reviewed EKG: Atrial fibrillation at a rate of 126. Imaging studies independently reviewed: Chest x-ray shows cardiomegaly, no pneumothorax or pleural effusion. Treatments: Diltiazem bolus and diltiazem drip. IV Lasix with Carbajal catheter placement for better evaluation of urine output and to help with peroneal and intertrigo cleanliness. 0.25 mg of IV digoxin Discussion: 73-year-old woman who presents with chest pain and palpitations. Recent admission for atrial fibrillation with rapid response and then transfer for heart catheterization. Medicine noncompliance is likely an issue, medics describe fairly chaotic presentation of her home setting with medications prescription bottles spread throughout her house. Patient is responded to diltiazem is currently on diltiazem drip. Significant congestive heart failure with elevated BNP and cardiomegaly appreciated on chest x-ray. Recent left great toe debridement with superficial infection and being treated with doxycycline by a family law specialist. Significant right-sided intertrigo. care is reviewed with hospitalist and patient will be admitted Critical Care Time Critical Care Time Critical Care Time: Yes Total Critical Care Time: 33 Attestation: Critical care time is separate from other billable procedures. There is a high probability of a significant, sudden or life-threatening deterioration that requires my full and direct attention, intervention and personal management. This critical care time includes consultation with family and other consulting doctors, review of records, and interpretation of data from labs, EKGs and imaging as well as managements of atrial fibrillation with rapid ventricular response with parenteral medications as well as management of acute congestive heart failure with parenteral medications Discharge Plan Departure Patient Disposition: Admitted As Inpatient Clinical Impression: Atrial fibrillation with RVR, Cand[place] intertrigo Acute CHF (congestive heart failure) Qualifiers: Heart failure type: unspecified Qualified Code(s): I50.9 - Heart failure, unspecified Cellulitis Qualifiers: Site of cellulitis: extremity Site of cellulitis of extremity: toe Laterality: left Qualified Code(s): L03.032 - Cellulitis of left toe
--- NOTE | 2023-12-19 04:35 | DI.RAD.S_ITS ---
PROCEDURE: XR CHEST 1V INDICATIONS: chest pain TECHNIQUE: One view of the chest was acquired. COMPARISON: [facility], CR, XR CHEST 1V, 11/16/2023, 14:42. FINDINGS: Surgical changes and devices: None. Lungs and pleura: Lungs are clear. No pleural effusions or pneumothorax. Mediastinum: Mediastinal contours appear normal. Heart size is enlarged. Bones and chest wall: No suspicious bony lesions. Overlying soft tissues appear unremarkable. IMPRESSION: No acute pulmonary process. Dictated by: Nati Gil M.D. on 12/19/2023 at 9:30 Approved by: Nati Gil M.D. on 12/19/2023 at 9:47
[2023-12-19 04:42] LABS: Add Manual Diff / Slide Review NO; Basophils Absolute Auto 100 /uL (0-100); Basophils Percent Auto 0.5 % (0-2); Eosinophils Absolute Auto 200 /uL (0-450); Eosinophils Percent Auto 1.1 % (2-4); Hematocrit 37.8 % (36-46); Hemoglobin 12.4 g/dL (12.0-16.0); Lymphocytes Absolute Auto 2300 /uL (1100-4500); Lymphocytes Percent Auto 17.1 % (25-40); Mean Corpuscular HGB Conc 32.7 % (30-36); Mean Corpuscular Hemoglobin 26.7 PG (26-34); Mean Corpuscular Volume 81.6 fL (80-100); Monocytes Absolute Auto 1000 /uL (0-900); Monocytes Percent Auto 7.7 % (3-14); Neutrophils Absolute Auto 10000 /uL (1500-7000); Neutrophils Percent Auto 73.6 % (50-75); Platelet Count 288 X10^3/uL (150-400); Red Blood Cell Count 4.64 X10^6/uL (4.0-5.2); White Blood Cell Count 13.6 X10^3/uL (4.5-11.0)
[2023-12-19 04:44] LABS: INR 1.2 (0.9-1.3); Prothrombin Time 14.3 SECONDS (9.4-12.5)
[2023-12-19 04:46] LABS: PTT Partial Thromboplastin Tim 37 SECONDS (25.1-36.5)
[2023-12-19 04:48] LABS: Alanine Aminotransferase 15 IU/L (<35); Alkaline Phosphatase 65 U/L (38-126); Aspartate Aminotransferase 20 IU/L (14-36); BUN Creatinine Ratio 18.5 (6-22); Bilirubin Total 0.5 mg/dL (0.2-1.3); Blood Urea Nitrogen 24 mg/dL (7-17); Calcium 9.4 mg/dL (8.4-10.2); Carbon Dioxide 22 mmol/L (22-32); Chloride 109 mmol/L (98-107); Creatine Kinase 41 U/L (30-135); Estimated Glomerular Filt Rate 44 mL/min (>60); Glucose 167 mg/dL (80-110); HEMOLYSIS < 15 (0-50); Lipase 626 U/L (23-300); Magnesium 1.6 mg/dL (1.6-2.3); Potassium 3.8 mmol/L (3.4-5.1); Sodium 141 mmol/L (137-145)
[2023-12-19 04:59] LABS: NT-proBNP (BNP-Adult 18+) 2640 pg/mL (<125); Troponin I 0.017 ng/mL (0.01-0.034)
[2023-12-19] MEDS: dilTIAZem 5 MG/ML SDV 10 MG IV (05:12)
[2023-12-19] MEDS: DILTIAZEM 125 MG/125 ML PIGGYBACK IV (05:13)
--- NOTE | 2023-12-19 05:40 | PC.NURSE ---
After starting the diltiazem drip, this nurse asked Dr. Li what parameters for heart rate and blood pressure were the goal. Dr. Li states keep the heart rate in the low 100's and to just keep the MAP above 60. No systolic/diastolic parameter.
--- NOTE | 2023-12-19 06:10 | PC.NURSE ---
Patient arrived in a wet brief from home and reports she has a yeast infection in her groin. Kely Teixeira did pericare. When placing mcnamara catheter, this nurse does not very red and excoriated groin and thighs. Dr. Li aware. Patient clean and dry.
[2023-12-19 06:15] LABS: Bilirubin Urine UA 1+ (NEGATIVE); Glucose Urine UA 3+ g/dL (Negative); Ketones Urine UA TRACE (NEGATIVE); Leukocyte Esterase Urine UA 1+ (NEGATIVE); Nitrite Urine UA NEGATIVE (Negative); Occult Blood Urine UA 3+ (Negative); Protein Urine UA TRACE (Negative); Specific Gravity Urine UA 1.025 (1.000-1.035); Urobilinogen Urine UA 0.2 E.U./dL (0.2)
[2023-12-19 06:21] LABS: Appearance Urine UA CLOUDY; Color Urine UA Dark Yellow
[2023-12-19 06:22] LABS: Bacteria Urine Occasional (0-1); Culture Indicated Urine Specimen Cultured; Ictotest Urine Negative (Negative); RBC Urine 30-100/HPF (0-5/HPF); Squamous Epithelial Cell Urine 1-5 /HPF (0-5/HPF); Urine Volume 10mL (spun); WBC Urine 10-30/HPF (0-5/HPF)
[2023-12-19] MEDS: DIGOXIN 500 MCG/2 ML AMPUL 250 MCG IV (06:24)
[2023-12-19] MEDS: FUROSEMIDE 60 MG in SODIUM CHLORIDE 0.9% 50 ML 112 MG IV (06:29)
[2023-12-19] MEDS: ACETAMINOPHEN 325 MG TABLET 650 MG PO (07:00)
--- NOTE | 2023-12-19 07:20 | PM.HP.1 ---
History of Present Illness History of Present Illness Date Patient Seen: 12/19/23 Chief complaint: chest pain Narrative: Anuja Parker is a 72yo F with PMH of A-fib on eliquis, Type 2 DM on insulin, CAD, s/p TAVR followed by Dr. Rosario, thyroid cancer, HTN and morbid obesity who presents with CP and A-fib RVR. Patient was just recently at [facility] for NSTEMI and sent to where she had a stent placed in LAD. She was placed on amiodarone for her A-fib and her dilt was stopped. Metoprolol continued. She was discharged home. She was doing well up until last night when she woke up with chest discomfort and was found to be in A-fib RVR. Started on dilt drip in the ED. UA positive for pyuria. Patient denies current CP, SOB, NV, abd pain or diarrhea. [facility] Medical History Acute kidney injury Appendicitis with perforation Vertigo Sedentary lifestyle Stage II pressure ulcer of sacral region (~02/2023) Hyperlipidemia Thyroid nodule Incontinence Breast screening Abnormal mammogram of left breast NSTEMI (non-ST elevated myocardial infarction) (09/2018) Recent heart attack Coronary artery disease Osteopenia (05/20/14) Knee osteoarthritis Hypertension (~2011) Diabetes mellitus (~2011) Rheumatoid arthritis Colon polyps (08/31/14) Surgical History History of bilateral knee replacement (2009) History of colonoscopy with polypectomy (08/31/14) History of left cataract surgery (03/23/15) History of right cataract surgery (04/06/15) Anesthesia History of knee replacement History of knee replacement Status post delivery (12/21/78) Family History Brother Drowning Father Heart disease Mother Diabetes mellitus Sister Bone cancer Sister Bone cancer Social History marital status: household members: family and children Smoking Status: Never smoker alcohol intake: current substance use type: does not use Meds Home Medications and Allergies Home Medications Medication Instructions Recorded Confirmed Type Parking Permit... #1 ea 09/08/20 12/19/23 Rx pen needle, diabetic 29 gauge x #100 ea 03/09/22 12/19/23 Rx 1/2 (Comfort EZ Pen [place]) insulin lispro 100 unit/mL 1 sliding scale dose SUBCUT 04/24/23 12/19/23 Rx subcutaneous pen (Humalog KwikPen USEASDIRECTD #15 mL (U-100) Insulin) atorvastatin 80 mg tablet (Lipitor) 80 mg PO QPM 06/02/23 12/19/23 History insulin glargine 100 unit/mL (3 40 unit SUBCUT QAM 06/02/23 12/19/23 History mL) subcutaneous pen (Lantus Solostar U-100 Insulin) apixaban 5 mg tablet (Eliquis) 5 mg PO BID #180 tabs 10/19/23 12/19/23 Rx blood sugar diagnostic (True #100 strips 10/30/23 12/19/23 Rx Metrix Glucose Test Strip) clopidogrel 75 mg tablet 75 mg PO QAM #90 tabs 11/07/23 12/19/23 Rx diltiazem HCl 120 mg 240 mg (2 x 120 mg) PO BID #180 11/07/23 12/19/23 Rx capsule,extended release 12 hr caps metformin 500 mg tablet 1,000 mg (2 x 500 mg) PO BID #360 11/07/23 12/19/23 Rx tabs metoprolol succinate 50 mg 50 mg PO DAILY #90 tabs 11/07/23 12/19/23 Rx tablet,extended release 24 hr nitroglycerin 0.4 mg sublingual 0.4 mg sublingual Q5-15M PRN chest 11/07/23 12/19/23 Rx tablet pain #90 tabs empagliflozin 25 mg tablet 25 mg PO DAILY 11/10/23 12/19/23 History (Jardiance) doxycycline hyclate 100 mg capsule 100 mg PO BID 10 days #20 caps 12/10/23 12/19/23 Rx amiodarone 200 mg tablet 200 mg PO DAILY 12/19/23 12/19/23 History insulin lispro 100 unit/mL See Rx Instructions .Route .COMPLEX 12/19/23 12/19/23 History subcutaneous pen (Humalog KwikPen (U-100) Insulin) Allergies Allergy/AdvReac Type Severity Reaction Status Date / Time Sulfa (Sulfonamide Allergy Mild RASH Verified 11/10/23 16:10 Antibiotics) Review of Systems Review of Systems Narrative: All other systems reviewed with the patient and are negative unless otherwise stated. Exam Vital Signs (past 8 hours): - 12/19/23 04:20 12/19/23 04:25 12/19/23 04:26 Temperature 98.9 F Pulse Rate 131 H 131 H Respiratory Rate 20 22 Blood Pressure 108/56 L Pulse Oximetry 97 97 Oxygen Delivery Method Room Air Room Air 12/19/23 04:26 12/19/23 04:30 12/19/23 04:31 Temperature Pulse Rate 130 H 127 H 129 H Respiratory Rate 18 18 19 Blood Pressure Pulse Oximetry 96 96 97 Oxygen Delivery Method Room Air 12/19/23 04:31 12/19/23 05:00 12/19/23 05:00 Temperature Pulse Rate 132 H Respiratory Rate 20 Blood Pressure 99/57 L 107/57 L Pulse Oximetry 97 Oxygen Delivery Method 12/19/23 05:12 12/19/23 05:30 12/19/23 05:30 Temperature Pulse Rate 129 H 101 H Respiratory Rate 16 Blood Pressure 107/57 L 94/56 L Pulse Oximetry 97 Oxygen Delivery Method Room Air 12/19/23 05:37 12/19/23 05:37 12/19/23 05:40 Temperature Pulse Rate 109 H Respiratory Rate 14 Blood Pressure 110/54 L 96/52 L Pulse Oximetry 97 Oxygen Delivery Method Room Air 12/19/23 05:40 12/19/23 05:45 12/19/23 05:45 Temperature Pulse Rate 119 H 115 H Respiratory Rate 17 18 Blood Pressure 94/62 Pulse Oximetry 96 95 Oxygen Delivery Method 12/19/23 05:51 12/19/23 05:51 12/19/23 05:55 Temperature Pulse Rate 120 H 120 H Respiratory Rate 33 H 16 Blood Pressure 121/79 Pulse Oximetry 98 98 Oxygen Delivery Method Room Air Room Air 12/19/23 05:55 12/19/23 06:00 12/19/23 06:00 Temperature Pulse Rate 130 H Respiratory Rate 24 Blood Pressure 112/70 132/73 Pulse Oximetry 98 Oxygen Delivery Method Room Air 12/19/23 06:05 12/19/23 06:05 12/19/23 06:10 Temperature Pulse Rate 130 H Respiratory Rate 25 H Blood Pressure 125/81 127/57 L Pulse Oximetry 98 Oxygen Delivery Method Room Air 12/19/23 06:10 12/19/23 06:15 12/19/23 06:15 Temperature Pulse Rate 127 H 119 H Respiratory Rate 20 18 Blood Pressure 105/53 L Pulse Oximetry 97 97 Oxygen Delivery Method Room Air Room Air 12/19/23 06:21 12/19/23 06:22 12/19/23 06:24 Temperature Pulse Rate 123 H 131 H 135 H Respiratory Rate 20 21 Blood Pressure 100/62 Pulse Oximetry 97 97 Oxygen Delivery Method Room Air Room Air 12/19/23 06:25 12/19/23 06:25 12/19/23 06:30 Temperature Pulse Rate 121 H Respiratory Rate 18 Blood Pressure 100/62 100/64 Pulse Oximetry 98 Oxygen Delivery Method Room Air 12/19/23 06:30 12/19/23 06:36 12/19/23 06:41 Temperature Pulse Rate 116 H 129 H Respiratory Rate 17 17 Blood Pressure 115/65 Pulse Oximetry 96 96 Oxygen Delivery Method Room Air Room Air 12/19/23 06:41 12/19/23 06:45 12/19/23 06:45 Temperature Pulse Rate 116 H 116 H Respiratory Rate 24 18 Blood Pressure 105/59 L Pulse Oximetry 96 96 Oxygen Delivery Method Room Air Room Air 12/19/23 06:50 12/19/23 06:50 12/19/23 06:55 Temperature Pulse Rate 114 H 105 H Respiratory Rate 19 19 Blood Pressure 114/62 Pulse Oximetry 95 96 Oxygen Delivery Method Room Air 12/19/23 06:55 12/19/23 07:00 12/19/23 07:01 Temperature Pulse Rate 121 H Respiratory Rate 20 Blood Pressure 113/62 144/58 H Pulse Oximetry 97 Oxygen Delivery Method Room Air 12/19/23 07:01 12/19/23 07:06 12/19/23 07:06 Temperature Pulse Rate 106 H 111 H Respiratory Rate 16 18 Blood Pressure 95/58 L Pulse Oximetry 97 96 Oxygen Delivery Method Room Air Room Air Oxygen Delivery Method Room Air Narrative Exam Narrative: GEN: no acute distress, obese, mildly confused HEENT: moist mucous membranes, PERRL NECK: trachea midline, no JVD CV: tachycardic, irregularly irregular, no murmurs PULM: clear bilaterally ABD: soft, nontender, nondistended, no organomegaly EXT: warm and well perfused with no edema NEURO: awake, alert, oriented, no focal deficits Objective Labs 12/19/23 04:37 12/19/23 04:37 Labs: Laboratory Results - last 24 hr 12/19/23 12/19/23 04:37 06:03 WBC 13.6 H RBC 4.64 Hgb 12.4 Hct 37.8 MCV 81.6 MCH 26.7 MCHC 32.7 RDW 16.0 H Plt Count 288 Neut % (Auto) 73.6 Lymph % (Auto) 17.1 L [place] % (Auto) 7.7 Eos % (Auto) 1.1 L Baso % (Auto) 0.5 Neut # (Auto) 85119 H Lymph # (Auto) 2300 [place] # (Auto) 1000 H Eos # (Auto) 200 Baso # (Auto) 100 PT 14.3 H INR 1.2 APTT 37 H Sodium 141 Potassium 3.8 Chloride 109 H Carbon Dioxide 22 BUN 24 H Creatinine 1.30 H Estimated GFR 44 L BUN/Creatinine Ratio 18.5 Glucose 167 H Calcium 9.4 Magnesium 1.6 Total Bilirubin 0.5 AST 20 ALT 15 Alkaline Phosphatase 65 Total Creatine Kinase 41 Troponin I 0.017 NT-Pro-B Natriuret Pep 2640 H Total Protein 8.0 Albumin 4.0 Globulin 4.0 Albumin/Globulin Ratio 1.0 Lipase 626 H Urine Color Dark yellow Urine Appearance Cloudy Urine pH 5.0 Ur Specific [place] 1.025 Urine Protein Trace H Urine Glucose (UA) 3+ H Urine Ketones Trace H Urine Occult Blood 3+ H Urine Nitrate Negative Urine Bilirubin 1+ H Ur Bilirubin Confirm Negative Urine Urobilinogen 0.2 Ur Leukocyte Esterase 1+ H Urine RBC 30-100/hpf H Urine WBC 10-30/hpf H Ur Squamous Epith Cells 1-5 /hpf Urine Bacteria Occasional (0-1) Urine Yeast 30-100/hpf H Ur Culture Indicated? Specimen cultured Vol Urine Centrifuged 10ml (spun) Assessment & Plan Assessment & Plan narrative: # atrial fibrillation with RVR -weaned off dilt drip, started back on po meteprolol and amio 200mg BID -on dilt 240mg BID and metop XL 50mg daily at home -continue eliquis -if HR still >110 may need to do amio bolus+drip # recent NSTEMI, LAD stent placement, now with elevated troponin -transferred to on 11/17 for [facility], after nuclear stress showed reversible ischemia -had stent placed to LAD due to severe stenosis, still severe stenosis of diagonal branch and distal LAD not amenable to stenting -now have trop bump with A-fib RVR, likely due to underlying CAD and type 2 NSTEMI -trend trop to peak # HFpEF -echo on 11/11/23 with EF 65-70%, mild LVH, progressive mod-severe MS, mild-mod AR, normal bioprosthetic aortic valve -hold jardiance due to KADE # acute cystitis -UA with pyuria -start rocephin x3 days # KADE -Cr 1.3, baseline 1.0 -monitor # L great toe infection -was on cefpodoxime and doxy as outpatient -continue rocephin and doxy -wound care consult # significant intertrigo -nystatin powder PRN -gave dose of fluconazole 200mg once # leukocytosis -possibly stress related from RVR vs UTI -WBC 13, will trend -CXR normal, UA with pyuria -abx for UTI as above # Type 2 Diabetes on insulin -continue home lantus at 35 instead of 40 units daily -hold metformin due to KADE -ordered for insulin sliding scale # Hypertension -recently stopped losartan, HCTZ in favor of rate control # CAD, history of aortic valve replacement. -continue statin, plavix # Thyroid cancer -in process of getting surgical removal as outpatient -check TSH Code status is full code. DVT prophylaxis with eliquis. Proxy is patient's daughter. I have reviewed home meds and used all available resources to reconcile the home meds. This patient will be admitted as ICU and will require greater than 2 midnights of hospital time to treat atrial fibrillation with RVR.
--- NOTE | 2023-12-19 07:46 | PC.NURSE ---
Pt reports chronic wounds on her sacrum. Pt was turned to assess with excoriated skin on her bilateral buttocks. Left buttocks wound present. Pt states she went to wound care once, when I first started coming here. She endorses difficulty cleansing herself and is not able to get into the shower at home because the wall is too tall for her. Pt's brief changed and barrier cream applied, 2x pillows under her buttocks.
[2023-12-19] MEDS: MAGNESIUM SULFATE 2 GM/50 ML PIGGYBACK IV (08:09)
[2023-12-19] MEDS: cefTRIAXone 1,000 MG in SODIUM CHLORIDE 0.9% 100 ML 200 MG IV (08:12)
[2023-12-19] MEDS: POTASSIUM CHLORIDE 20 MEQ TAB 40 MEQ PO (08:12)
[2023-12-19 08:32] LABS: TSH w/ Reflex to FT4 1.82 uIU/mL (0.47-4.68)
--- NOTE | 2023-12-19 08:47 | PC.NURSE ---
Dr. David consulted regarding pt's diltiazem drip and PO metoprolol. Requested we wean pt off diltiazem over 60minutes after PO metoprolol. Monitor BP's. If hypotensive give fluid bolus.
[2023-12-19] MEDS: METOPROLOL ER 50 MG TABLET PO (09:15)
[2023-12-19] MEDS: CLOPIDOGREL 75 MG TABLET PO (09:56)
[2023-12-19] MEDS: DOXYCYCLINE HYCLATE 100 MG TABLET PO ×2 (09:56→21:03)
[2023-12-19] MEDS: APIXABAN 5 MG TABLET PO ×2 (09:56→21:03)
[2023-12-19] MEDS: INSULIN GLARGINE 100 UNIT/ML 3ML PEN 40 UNIT SUBCUT (09:57)
[2023-12-19] MEDS: SODIUM CHLORIDE 0.9% 500 ML IV (10:20)
[2023-12-19 10:41] LABS: Troponin I 0.125 ng/mL (0.01-0.034)
[2023-12-19] MEDS: dilTIAZem CD 120 MG CAP 240 MG PO (11:09)
--- NOTE | 2023-12-19 11:20 | PC.NURSE ---
Pt denies having chest pain, but reports a little while ago I had some chest pain, but it come and gone so I didnt worry about it. I informed patient to let us know when she is having chest pain, pt expresses understanding.
[2023-12-19] MEDS: AMIODARONE 200 MG TABLET PO ×2 (13:08→17:07)
[2023-12-19 16:29] LABS: MRSA (Nasal) PCR Not Detected (Not Detect)
[2023-12-19] MEDS: NYSTATIN POWDER 15GM 1 APPLIC TOP ×2 (16:30→23:00)
[2023-12-19] MEDS: FLUCONAZOLE 100 MG TABLET 200 MG PO (16:30)
[2023-12-19 17:05] LABS: Troponin I 0.133 ng/mL (0.01-0.034)
[2023-12-19] MEDS: INSULIN LISPRO 100 UNIT/ML 3ML VIAL SUBCUT (17:07)
[2023-12-19] MEDS: ATORVASTATIN 20 MG TABLET 80 MG PO (21:03)
--- NOTE | 2023-12-19 23:02 | PC.NURSE ---
Addendum entered by Ashely Curiel R.N. 12/20/23 07:24: L calf scab open to air, L great toe scabbed over, dry left open to air, sacrum blanchable with pink open tear in center of buttock foam dressing applied Original Note:
[2023-12-20] VITALS (19 sets, daily range): BP systolic 100–105; BP diastolic 51–57; PULSE 62–79; RESP 12–29; TEMP 36.2–36.5; O2SAT 94–99
[2023-12-20 05:10] LABS: Add Manual Diff / Slide Review NO; Basophils Absolute Auto 0 /uL (0-100); Basophils Percent Auto 0.4 % (0-2); Eosinophils Absolute Auto 200 /uL (0-450); Eosinophils Percent Auto 2.3 % (2-4); Hemoglobin 11.2 g/dL (12.0-16.0); Lymphocytes Absolute Auto 1600 /uL (1100-4500); Mean Corpuscular Hemoglobin 26.8 PG (26-34); Mean Corpuscular Volume 81.3 fL (80-100); Monocytes Absolute Auto 900 /uL (0-900); Monocytes Percent Auto 9.1 % (3-14); Neutrophils Absolute Auto 7400 /uL (1500-7000); Neutrophils Percent Auto 72.2 % (50-75); Platelet Count 232 X10^3/uL (150-400); Red Blood Cell Count 4.19 X10^6/uL (4.0-5.2); Red Cell Distribution Width 15.6 % (11.6-14.8); White Blood Cell Count 10.2 X10^3/uL (4.5-11.0)
[2023-12-20 05:21] LABS: BUN Creatinine Ratio 22.3 (6-22); Blood Urea Nitrogen 29 mg/dL (7-17); Calcium 8.5 mg/dL (8.4-10.2); Carbon Dioxide 22 mmol/L (22-32); Chloride 108 mmol/L (98-107); Estimated Glomerular Filt Rate 44 mL/min (>60); Glucose 172 mg/dL (80-110); HEMOLYSIS < 15 (0-50); Potassium 3.7 mmol/L (3.4-5.1); Sodium 136 mmol/L (137-145)
[2023-12-20 05:24] LABS: Magnesium 1.8 mg/dL (1.6-2.3)
[2023-12-20] MEDS: cefTRIAXone 1,000 MG in SODIUM CHLORIDE 0.9% 100 ML 200 MG IV (06:34)
--- NOTE | 2023-12-20 07:53 | P.PN_ITS ---
Subjective Subjective Interval history: She is feeling better. Her groin is still itchy. She denies any dyspnea, or palpitations. She has a Carbajal catheter in place. Exam Vital Signs (past 8 hours): - 12/20/23 00:00 12/20/23 04:00 Temperature 97.5 F L 97.2 F L Pulse Rate 79 63 Respiratory Rate 18 20 Blood Pressure 100/53 L 105/57 L Pulse Oximetry 99 97 Oxygen Flow Rate 0 0 Oxygen Delivery Method Room Air Oxygen Flow Rate 0 Narrative Exam Narrative: NAD, alert and oriented, fluent speech, calm. Normocephalic skull, EOMI, anicteric sclera, symmetric pupils. Oropharynx unremarkable, no droop. Neck supple, midline trachea, no adenopathy. Lungs clear, normal rate and effort. Heart regular, 3/6 systolic murmur and no gallop or rub. Abdomen is soft, non distended and non tender. Extremities are free of edema. Skin is free of rash or lesions. Joints are not swollen or deformed. Judgment appears to be normal. Objective Labs 12/20/23 04:15 12/20/23 04:15 Labs: Laboratory Results - last 24 hr 12/19/23 12/19/23 12/19/23 04:37 10:00 12:44 WBC RBC Hgb Hct MCV MCH MCHC RDW Plt Count Neut % (Auto) Lymph % (Auto) [place] % (Auto) Eos % (Auto) Baso % (Auto) Neut # (Auto) Lymph # (Auto) [place] # (Auto) Eos # (Auto) Baso # (Auto) Sodium Potassium Chloride Carbon Dioxide BUN Creatinine Estimated GFR BUN/Creatinine Ratio Glucose Calcium Magnesium Troponin I 0.125 H* TSH 1.82 Nasal Screen MRSA (PCR) Not detected 12/19/23 12/20/23 16:30 04:15 WBC 10.2 RBC 4.19 Hgb 11.2 L Hct 34.0 L MCV 81.3 MCH 26.8 MCHC 33.0 RDW 15.6 H Plt Count 232 Neut % (Auto) 72.2 Lymph % (Auto) 16.0 L [place] % (Auto) 9.1 Eos % (Auto) 2.3 Baso % (Auto) 0.4 Neut # (Auto) 7400 H Lymph # (Auto) 1600 [place] # (Auto) 900 Eos # (Auto) 200 Baso # (Auto) 0 Sodium 136 L Potassium 3.7 Chloride 108 H Carbon Dioxide 22 BUN 29 H Creatinine 1.30 H Estimated GFR 44 L BUN/Creatinine Ratio 22.3 H Glucose 172 H Calcium 8.5 Magnesium 1.8 Troponin I 0.133 H* TSH Nasal Screen MRSA (PCR) [facility] Medical History Acute kidney injury Appendicitis with perforation Vertigo Sedentary lifestyle Stage II pressure ulcer of sacral region (~02/2023) Hyperlipidemia Thyroid nodule Incontinence Breast screening Abnormal mammogram of left breast NSTEMI (non-ST elevated myocardial infarction) (09/2018) Recent heart attack Coronary artery disease Osteopenia (05/20/14) Knee osteoarthritis Hypertension (~2011) Diabetes mellitus (~2011) Rheumatoid arthritis Colon polyps (08/31/14) Surgical History History of bilateral knee replacement (2009) History of colonoscopy with polypectomy (08/31/14) History of left cataract surgery (03/23/15) History of right cataract surgery (04/06/15) Anesthesia History of knee replacement History of knee replacement Status post delivery (12/21/78) Family History Brother Drowning Father Heart disease Mother Diabetes mellitus Sister Bone cancer Sister Bone cancer Social History marital status: household members: family and children Smoking Status: Never smoker alcohol intake: current substance use type: does not use Assessment & Plan Assessment & Plan narrative: 1. Atrial fibrillation with RVR, present on admission and improved. -weaned off dilt drip, started back on PO metoprolol and amiodarone 200mg BID -on diltiazem 240mg BID and metop XL 50mg daily at home -continue eliquis 2. Recent NSTEMI, LAD stent placement (carrie Ochoa), now with elevated troponin -transferred to on 11/17 for [facility], after nuclear stress showed reversible ischemia -had stent placed to LAD due to severe stenosis, still severe stenosis of diagonal branch and distal LAD not amenable to stenting 3. HFpEF, stable, stable. -echo on 11/11/23 with EF 65-70%, mild LVH, progressive mod-severe MS, mild-mod AR, normal bioprosthetic aortic valve -hold jardiance due to KADE 4. UTI, present on admission and improved. -UA with pyuria -start rocephin x3 days 5. KADE, present on admission and improved. -Cr 1.3, baseline 1.0 -monitor 6. L great toe infection, present on admission and improved. -was on cefpodoxime and doxy as outpatient -continue rocephin and doxy -wound care consult 7. Intertrigo, present on admission and improved. -nystatin powder PRN -gave dose of fluconazole 200mg once 8. Type 2 Diabetes on insulin, stable. -continue home lantus at 35 instead of 40 units daily -hold metformin due to KADE -ordered for insulin sliding scale 9. Hypertension, stable/ -recently stopped losartan, HCTZ in favor of rate control 10. CAD, history of TAVR. Stable. -continue statin, plavix 11. Thyroid cancer, stable. -in process of getting surgical removal as outpatient -check TSH PLAN: -continue current chronic medications. -continue antibiotics and discontinue Carbajal. -physical therapy, out of bed. Code status is full code. DVT prophylaxis with eliquis. Proxy is patient's daughter. Dispo: Likely home on December 20. Quality VTE Deep Vein Thrombosis/Pulmonary Embolism Present on Admission: No
[2023-12-20] MEDS: INSULIN LISPRO 100 UNIT/ML 3ML VIAL SUBCUT ×2 (08:27→12:17)
[2023-12-20] MEDS: CLOPIDOGREL 75 MG TABLET PO (08:27)
[2023-12-20] MEDS: AMIODARONE 200 MG TABLET PO (08:27)
[2023-12-20] MEDS: DOXYCYCLINE HYCLATE 100 MG TABLET PO (08:27)
[2023-12-20] MEDS: METOPROLOL ER 50 MG TABLET PO (08:27)
[2023-12-20] MEDS: APIXABAN 5 MG TABLET PO (08:27)
[2023-12-20] MEDS: INSULIN GLARGINE 100 UNIT/ML 3ML PEN 40 UNIT SUBCUT (09:38)
--- NOTE | 2023-12-20 11:16 | PT.IIE ---
Current Diagnoses Unspecified atrial fibrillation (12/19/23) Surgical History (Last Reviewed 12/19/23 @ 04:47 by Denisha Li MD) Anesthesia History of bilateral knee replacement (2009) History of colonoscopy with polypectomy (08/31/14) History of knee replacement History of knee replacement History of left cataract surgery (03/23/15) History of right cataract surgery (04/06/15) Status post delivery (12/21/78) Medical History (Last Reviewed 12/19/23 @ 04:47 by Denisha Li MD) Abnormal mammogram of left breast Acute kidney injury Appendicitis with perforation Breast screening Colon polyps (08/31/14) Coronary artery disease Diabetes mellitus (~2011) Hyperlipidemia Hypertension (~2011) Incontinence Knee osteoarthritis NSTEMI (non-ST elevated myocardial infarction) (09/2018) Osteopenia (05/20/14) Recent heart attack Rheumatoid arthritis Sedentary lifestyle Stage II pressure ulcer of sacral region (~02/2023) Thyroid nodule Vertigo Physical Therapy Inpatient Evaluation/Re-Eval M1 PT/OT-IP Prior Functional Status Start: 12/20/23 09:01 Freq: NEEDED Status: Active Protocol: Document 12/20/23 10:34 MB (Rec: 12/20/23 11:16 MB [id number]) Medical Review Prior Functional Status Medical History Reviewed Yes Diet/Fluid Consistency Regular Communication WNLs Mobility and Gait Furniture walker to rollator use Activities of Daily Living and IADL's Mod I to get to BR, services was providing bath aide for bed baths at home since pt could not safely get into the tub Social History Household Members family,children Living Arrangements House Number of Floors (Floors) One Floor Number of Stairs To Enter/Railing? Several steps to enter with no rail and pt states that her son always helps her. She states they bought a rail but he has not put it up. Home Environment Standard Height Toilet,Tub/ Shower Home Equipment Four Wheel Walker Employment Status Retired Additional Social History Comment Pt does not provide a lot more information about home set-up . Her son recently had her grandson leave the house and son works in [employer] daily. M2 PT-IP Current Condition Start: 12/20/23 09:01 Freq: NEEDED Status: Active Protocol: Document 12/20/23 10:34 MB (Rec: 03/07/24 11:16 MB [id number]) Physical Therapy Current Condition Current Condition Evaluation Date 12/20/23 Treatment Diagnosis CP s/p recent NSTEMI and stenting to LAD M3 PT-IP Subjective Start: 12/20/23 09:01 Freq: NEEDED Status: Active Protocol: Document 12/20/23 10:34 MB (Rec: 12/20/23 11:16 MB [id number]) Subjective Physical Therapy Visit Type Type Initial Evaluation Visit Start Time 10:34 Visit Stop Time 11:00 Number of CLEANING AND WASHING EQUIPMENT OPERATOR Visits 0 Physical Therapy Visit Comments Patient Comments Pt states that the hospital is better than home. She and nsg think she will be d/cing today. Therapy Pain Assessment Pain When Pain Assessed During Mobility Pain Present Pain Present Pain Reported Location Toes Intensity 5 Scale Used Andersen-Cagle (Faces) Pain Behaviors Calling Out M4 PT-IP Mobility and Gait Start: 12/20/23 09:01 Freq: NEEDED Status: Active Protocol: Document 12/20/23 10:34 MB (Rec: 12/20/23 11:16 MB [id number]) PT-Bed Mobility Assessment Supine to Sit Supine to Sit Contact Guard Assistance,1 Person Assistance,Head of Bed Elevated,Bedrails Sit to Supine Sit to Supine Minimal Assistance,1 Person Assistance,Bedrails Scooting Scooting to Edge of Bed Contact Guard Assistance PT-Transfer Assessment Sit to and From Stand Sit to and from Stand Contact Guard Assistance Equipment Transfer Assistive Device Gait Belt,Front Wheeled Walker Orthotic/Prosthetic Devices or Brace: No Transfers Transfer Destination Bed,Chair Transfer Technique Bath chair to bed to chair beside bed, stepping Transfer Ability Level of Assist Contact Guard Assistance,1 Person Assistance,Use of Upper Extremities Comments Mobility Comments Pt uses RW for transfer and stepping and requires CGA Gait Assessment Gait Gait Assistance Required: Contact Guard Assist Distance (Feet) 10 Able to Maintain Weight Bearing Status Yes During Gait Assistive Devices Assistive Device Gait Belt,Front Wheeled Walker Orthotic/Prosthetic Devices or Brace: No Gait Deviations General Gait Pattern Antalgic,Decreased Stride Length,Decreased Feet Clearance,Flexed Trunk,Wide Based Gait Factors Limiting Gait Function Factors Limiting Gait Function Decreased Activity Tolerance, Pain,Poor Balance,Poor Safety Awareness Comments Gait Comments Pt tends to push walker away from her and she c/o foot pain with gait. She is overally CGA and cues with use of RW for gait. PT-Balance Assessment Sitting Balance and Reactions Static Sitting Balance Ability Good Dynamic Sitting Balance Ability Fair Standing Balance and Reactions Static Standing Balance Ability Fair Dynamic Standing Balance Ability Fair Device Used RW M5 PT-IP Objective Assessments Start: 12/20/23 09:01 Freq: NEEDED Status: Active Protocol: Document 12/20/23 10:34 MB (Rec: 12/20/23 11:16 MB [id number]) Orientation Orientation/Cognition Level of Alertness Alert Orientation Name,Age,Birthday,Place, Situation Language Function Ability No Deficits Noted Safety Awareness Decreased Safety Awareness Memory Description No Deficits Noted Gross Range of Motion Upper Extremity ROM Assessment Within Functional Limits Lower Extremity ROM Assessment Within Functional Limits Strength Upper Extremity Strength Assessment Within Functional Limits Lower Extremity Strength Assessment Within Functional Limits Comments Strength Comments Pt cannot tolerate further range and MMT d/t multiple areas of skin, toe, and foot pain. Her abdominal skin is tender from yeast infection per nursing and moving arms irritates her skin. Functional strength in arms and legs. M6 PT-IP Treatment Start: 12/20/23 09:01 Freq: NEEDED Status: Active Protocol: Document 12/20/23 10:34 MB (Rec: 12/20/23 11:16 MB [id number]) Physical Therapy Treatment Education Education Provided Safety Other Treatments Other Treatment Performed PT assists with dressing after pt finished bath and pt requires max A to don gown and dependent assistance to don socks. Some further assistance for multiple transfers during treatment, cues for education for hand placement. M7 PT-IP Assessment and Plan Start: 12/20/23 09:01 Freq: NEEDED Status: Active Protocol: Document 12/20/23 10:34 MB (Rec: 12/20/23 11:16 MB [id number]) PT Summary Assessment and Plan Potential Rehabilitation Potential Fair Status of Condition at Evaluation Evolving Summary Impairments Balance,Bed Mobility,Transfers ,Gait,Activity Tolerance Progress Towards Goals Slow Progress due to Pain,Slow Progress due to Medical Issues,Slow Progress due to Activity Tolerance Assessment Summary Pt is a 73 y/o female who has worked with this PT in acute and SNF and who is sedentary at home and is pleasant but not very participatory with skilled PT. Pt requires a lot of encouragement to take a small walk and try bed mobility with encouragement from PT and nsg. Pt sleeps in a recliner at home. She appears to have a lot of skin changes from poor self-care at home including sacral wound and yeast in abdominal folds with discomfort in both places as well as pain on her toes. Pt is CGA for transfers with gait with RW and min A for sit to supine. She will benefit from HHPT and SERVICE PARTS COORDINATOR if she d/cs home. Her son works in [place]. It would be beneficial for pt to have a life alert or cell phone to keep with her during the day and increased assistance at d/ c. In the past, pt has refused RW for home d/t little space. Goals Transfer Goal Independent,Front Wheeled Walker Gait Goal Independent,Front Wheel Walker Gait Distance 50 Other Goals Pt will ascend and descend at least 3 steps with LRAD and/or SPARE HAND CARDING to allow safe home entrance. No bed mobility goal because she sleeps in a recliner at home. Days to Meet Goals 3 Frequency of Treatment Frequency Of Treatment Once a Day Treatment Plan Physical Therapy Treatment Plan Transfer Training,Gait Training,Therapeutic Exercise, Balance Retraining,Discharge Planning Weight Bearing Status Weight Bearing Status Weight Bear as Tolerated Recommendations To Nursing Amount of Assist Needed 1 Person Assist Discharge Recommendations PT Discharge Recommendations Home with 07/05 Assist Available,Home Health Transportation Needs at Discharge Private Vehicle,Wheelchair/ Cabulance
[2023-12-20 12:28] LABS: Troponin I 0.065 ng/mL (0.01-0.034)
--- NOTE | 2023-12-20 12:54 | P.DS_ITS ---
History of Present Illness History of Present Illness Chief complaint: chest pain Narrative: Anuja Parker is a 72yo F with PMH of A-fib on eliquis, Type 2 DM on insulin, CAD, s/p TAVR followed by Dr. Rosario, thyroid cancer, HTN and morbid obesity who presents with CP and A-fib RVR. Patient was just recently at [facility] for NSTEMI and sent to where she had a stent placed in LAD. She was placed on amiodarone for her A-fib and her dilt was stopped. Metoprolol continued. She was discharged home. She was doing well up until last night when she woke up with chest discomfort and was found to be in A-fib RVR. Started on dilt drip in the ED. UA positive for pyuria. Patient denies current CP, SOB, NV, abd pain or diarrhea. Discharge Providers Provider Date of admission: 12/19/23 06:11 Discharge Date: 12/20/23 Primary care physician: Chino Ruggiero MD Consults: 12/19/23 09:32 Consult to Wound Care Routine Comment: Consulting Provider: [facility] 12/20/23 08:33 Consult to Physical Therapy Evaluate & Treat Comment: Physician Instructions: Evaluate and Treat Discharge provider: Richard Solares MD Summary Hospital Course Discharge Diagnosis: 1. Atrial fibrillation with RVR, present on admission and improved. -weaned off dilt drip, started back on PO metoprolol and amiodarone 200mg BID -on diltiazem 240mg BID and metop XL 50mg daily at home -continue eliquis 2. Recent NSTEMI, LAD stent placement (carrie Ochoa), now with elevated troponin -transferred to on 11/17 for [facility], after nuclear stress showed reversible ischemia -had stent placed to LAD due to severe stenosis, still severe stenosis of diagonal branch and distal LAD not amenable to stenting 3. HFpEF, stable, stable. -echo on 11/11/23 with EF 65-70%, mild LVH, progressive mod-severe MS, mild-mod AR, normal bioprosthetic aortic valve -hold jardiance due to KADE 4. UTI, present on admission and improved. -UA with pyuria -start rocephin x3 days 5. KADE, present on admission and improved. -Cr 1.3, baseline 1.0 -monitor 6. L great toe infection, present on admission and improved. -was on cefpodoxime and doxy as outpatient -continue rocephin and doxy -wound care consult 7. Intertrigo, present on admission and improved. -nystatin powder PRN -gave dose of fluconazole 200mg once 8. Type 2 Diabetes on insulin, stable. -continue home lantus at 35 instead of 40 units daily -hold metformin due to KADE -ordered for insulin sliding scale 9. Hypertension, stable/ -recently stopped losartan, HCTZ in favor of rate control 10. CAD, history of TAVR. Stable. -continue statin, plavix 11. Thyroid cancer, stable. -in process of getting surgical removal as outpatient -check TSH Hospital Course: She was admitted with atrial fibrillation with rapid ventricular response. She attained good rate control with a diltiazem drip which was transitioned to oral diltiazem, metoprolol, and amiodarone. She had a mild KADE initially in her Jardiance was held. This can be reinstituted at the time of discharge as her GFR is above 30. The patient had possible UTI and was treated with ceftriaxone, her initial culture was yeast. She also had a left great toe infection which appears to be essentially unremarkable on the day of discharge. She was being treated with nystatin powder for a intertrigo as well. The day of discharge she was able to ambulate without difficulty. Her urine culture indicates yeast with final sensitivity pending. The decision on whether or not to send with fluconazole as contingent on her also being on amiodarone. I given the lack of urinary symptoms, we will hold fluconazole pending her cultures. Status at Discharge Cognitive/behavioral status at discharge: oriented Functional status at discharge: uses cane/walker Overall status at discharge: patient is back to baseline Time Spent with Patient Time spent: Greater than 30 minutes Exam Vital Signs (past 8 hours): - 12/20/23 05:00 12/20/23 05:30 12/20/23 06:00 Temperature Pulse Rate 62 63 79 Respiratory Rate 15 15 20 Pulse Oximetry 96 96 97 Oxygen Delivery Method 12/20/23 06:30 12/20/23 07:00 12/20/23 07:00 Temperature Pulse Rate 64 65 Respiratory Rate 12 14 Pulse Oximetry 99 94 Oxygen Delivery Method Room Air 12/20/23 07:30 12/20/23 08:00 12/20/23 08:00 Temperature 97.5 F L Pulse Rate 65 71 Respiratory Rate 29 H 15 Pulse Oximetry 97 Oxygen Delivery Method 12/20/23 12:00 Temperature 97.7 F Pulse Rate Respiratory Rate Pulse Oximetry Oxygen Delivery Method Oxygen Delivery Method Room Air Oxygen Flow Rate 0 Narrative Exam Narrative: NAD, alert and oriented. Fluent speech. Lungs are clear, normal rate and effort. Heart is regular, no murmur gallop or rub. Abdomen is soft, non distended. Extremities are free of edema. Objective Imaging Toe xray: Radiologist's impression: Normal bone. Chest x-ray: Radiologist's impression: No acute changes. Labs 12/20/23 04:15 12/20/23 04:15 Labs: Laboratory Results - last 24 hr 12/19/23 12/19/23 12/20/23 12:44 16:30 04:15 WBC 10.2 RBC 4.19 Hgb 11.2 L Hct 34.0 L MCV 81.3 MCH 26.8 MCHC 33.0 RDW 15.6 H Plt Count 232 Neut % (Auto) 72.2 Lymph % (Auto) 16.0 L Motley % (Auto) 9.1 Eos % (Auto) 2.3 Baso % (Auto) 0.4 Neut # (Auto) 7400 H Lymph # (Auto) 1600 Motley # (Auto) 900 Eos # (Auto) 200 Baso # (Auto) 0 Sodium 136 L Potassium 3.7 Chloride 108 H Carbon Dioxide 22 BUN 29 H Creatinine 1.30 H Estimated GFR 44 L BUN/Creatinine Ratio 22.3 H Glucose 172 H Calcium 8.5 Magnesium 1.8 Troponin I 0.133 H* Nasal Screen MRSA (PCR) Not detected 12/20/23 11:56 WBC RBC Hgb Hct MCV MCH MCHC RDW Plt Count Neut % (Auto) Lymph % (Auto) Motley % (Auto) Eos % (Auto) Baso % (Auto) Neut # (Auto) Lymph # (Auto) Motley # (Auto) Eos # (Auto) Baso # (Auto) Sodium Potassium Chloride Carbon Dioxide BUN Creatinine Estimated GFR BUN/Creatinine Ratio Glucose Calcium Magnesium Troponin I 0.065 H Nasal Screen MRSA (PCR) [facility] Medical History Acute kidney injury Appendicitis with perforation Vertigo Sedentary lifestyle Stage II pressure ulcer of sacral region (~02/2023) Hyperlipidemia Thyroid nodule Incontinence Breast screening Abnormal mammogram of left breast NSTEMI (non-ST elevated myocardial infarction) (09/2018) Recent heart attack Coronary artery disease Osteopenia (05/20/14) Knee osteoarthritis Hypertension (~2011) Diabetes mellitus (~2011) Rheumatoid arthritis Colon polyps (08/31/14) Surgical History History of bilateral knee replacement (2009) History of colonoscopy with polypectomy (08/31/14) History of left cataract surgery (03/23/15) History of right cataract surgery (04/06/15) Anesthesia History of knee replacement History of knee replacement Status post delivery (12/21/78) Family History Brother Drowning Father Heart disease Mother Diabetes mellitus Sister Bone cancer Sister Bone cancer Social History marital status: household members: family and children Smoking Status: Never smoker alcohol intake: current substance use type: does not use Discharge Assessment & Plan Assessment and Plan Assessment: 1. Atrial fibrillation with RVR, present on admission and improved. 2. Recent NSTEMI, LAD stent placement (carrie Ochoa), now with elevated troponin 3. HFpEF, stable, stable. -echo on 11/11/23 with EF 65-70%, mild LVH, progressive mod-severe MS, mild-mod AR, normal bioprosthetic aortic valve 4. UTI, present on admission and improved. -UA with pyuria -start rocephin x3 days -yeast 100k CFU with cultures pending. 5. KADE, present on admission and improved. -Cr 1.3, baseline 1.0 6. L great toe infection, present on admission and improved. -was on cefpodoxime and doxy as outpatient 7. Intertrigo, present on admission and improved. -nystatin powder PRN -gave dose of fluconazole 200mg once 8. Type 2 Diabetes on insulin, stable. -continue home lantus at 35 instead of 40 units daily 9. Hypertension, stable/ -recently stopped losartan, HCTZ in favor of rate control 10. CAD, present on admissiona nd stable. Plan of Treatment: She is discharged with rate control medications being restarted and stable. She did have 100,000 CFUs of Abby in her urine but denies symptoms of unusual polyuria or dysuria or hematuria. She is on amiodarone which has hazard with fluconazole. We will discuss this with her smokehouse worker (Abraham) and Infectious Disease over the next several days and contact her with a follow-up plan. Discharge Plan Discharge Plan Patient Disposition: Home Health Service Provider Discharge Comment: Stable for discharge with close PCP follow up. Discharge orders & Medications Prescriptions: Continued (DME) pen needle, diabetic [Comfort EZ Pen [place]] 29 gauge x 1/2 needle See Rx Instructions .ROUTE .MEDSUPPLY Qty: 100 3RF Rx Instructions: use to check blood glucose 3x per day (DME) True Metrix Glucose Test Strip Strip See Rx Instructions .ROUTE .COMPLEX Qty: 100 3RF Dose Instruction: USE TO TEST BLOOD SUGAR DAILY Rx Instructions: USE TO TEST BLOOD SUGAR DAILY (DME) Parking Permit... See Rx Instructions .Route .MEDSUPPLY Qty: 1 0RF Rx Instructions: Patient meets criteria for permanent parking placard. insulin lispro [Humalog KwikPen Insulin] 100 unit/mL insulin pen 1 sliding scale dose SUBCUT USEASDIRECTD Qty: 15 3RF Rx Instructions: slide scale 2-14 units SQ TID Eliquis 5 mg tablet 5 mg PO BID Qty: 180 2RF metoprolol succinate 50 mg tablet extended release 24 hr 50 mg PO DAILY Qty: 90 3RF diltiazem HCl 120 mg capsule,extended release 12 hr 240 mg PO BID Qty: 180 3RF clopidogrel 75 mg tablet 75 mg PO QAM Qty: 90 3RF metformin 500 mg tablet 1,000 mg PO BID Qty: 360 3RF Rx Instructions: TAKE TWO TABLETS BY MOUTH TWICE DAILY nitroglycerin 0.4 mg tablet, sublingual 0.4 mg SL Q5-15M PRN (Reason: chest pain) Qty: 90 11RF Patient Comments: patient has prescription but has not taken yet Rx Instructions: until response; do not exceed 3 doses per episode atorvastatin [Lipitor] 80 mg tablet 80 mg PO QPM insulin glargine [Lantus Solostar U-100 Insulin] 100 unit/mL (3 mL) insulin pen 40 unit SUBCUT QAM Patient Comments: pt states that she takes Lantus in the morning instead of nighttime. amiodarone 200 mg tablet 200 mg PO DAILY insulin lispro [Humalog KwikPen Insulin] 100 unit/mL insulin pen See Rx Instructions .ROUTE .COMPLEX Patient Comments: [NO ORIGINAL SIG] Rx Instructions: sliding scale Jardiance 25 mg tablet 25 mg PO DAILY Medication counseling provided by Pharmacist: No Follow up/Referrals: Chino Ruggiero MD [Primary Care Provider] - Diet/Activity/Treatments Diet: Carb-consistent/Diabetic Skin/Wound/Dressing Care Report to your healthcare provider any signs of infection, such as:: chills, fever, night sweats and increased pain Visit Report/Discharge Packet Stand Alone Forms: Patient Portal/API Discharge Data Primary Care Provider: Chino Ruggiero Quality VTE Deep Vein Thrombosis/Pulmonary Embolism Present on Admission: No MIPS - DC The patient has a history of heart transplant or Left Ventricular Assist Device (LVAD). If yes, STOP here.: No The patient has current or prior documentation of left ventricular ejection fraction (LVEF) less than or equal to 40%, or moderate or severely depressed left ventricular systolic function.: No
--- NOTE | 2023-12-20 13:13 | CM.DANOTE ---
Initial DCP Assessment Note Pt is a 73 yo female, resident of [place], arrives with CP and afib w/rvr Patient just discharged home, close outpatient follow up recommended PCP: Chino Ruggiero Payer: [facility] Reviewed chart, met w/patient to introduce self and role. Patient lives with naun Morgan in [place]. Son works, although patient feel he makes himself available to her for assist as needed. Patient has had [facility] in the past and requests them upon discharge. F2F and HH order completed. MIMI Valdes, has kindly agreed to sending this referral to [facility] for review. Placed call to naun Morgan to update that patient has been discharged, son agreeable and plans to transport patient home. Updated ANGELA Hung. Plan: Discharge home w/son, [facility], close outpatient follow up. SAYRA Villegas Discharge Planning/Care Management Advanced directive, confirm from FAMILY Start: 12/19/23 13:36 Freq: Q24H Status: Active Protocol: Document 12/19/23 13:36 MS (Rec: 12/19/23 14:08 MS [id number]) Advance Directive, confirm on record Time 14:08 Person contacted son Copy received No CM Discharge Assessment Start: 12/20/23 13:09 Freq: Status: Active Protocol: Document 12/20/23 13:09 [id number] (Rec: 12/20/23 13:13 JW [id number]) Discharge Planning Assessment Assigned [place] SAYRA Flood DPOA/Assigned Designee Name naun Flores Contact Information [phone] Advance Directives? Yes Advance Directives on File No History Provided By Patient,Medical Record Has Patient been admitted in last 30 No days? Comment Last admitted 1.27-2.3.24 Prior Living Arrangements House Household Members family,children Type of transporation used prior to Relies on Others admit Independent with ADL's Yes: Poor activity tolerance Is patient alert and oriented? Yes Needs Assistance With Bathing,Managing Medications, Home Chores / Shopping Comment Patient would like TOP LIFT SCOURER to assist with sponge baths Patient/Family Preference Home with Home Health Barriers to Discharge No Comment Home w/son, referral to [facility] per patient's request Discharge Plan Home with Home Health Transportation Arrangement naun Morgan at d/c Referrals Initiated Home Health Additional Comment referral [facility] If patient plan is home with home health Yes : Has signed face to face form been completed? SNF/HH Preference [facility] Whiteboard Updated in Patient Room with Yes name and ext. # of Deburrer
== END 2023-12-20 14:45 | disposition home health service (06) | DRG 309 ==
LOC: ED 05:52 → AC 06:11 → ICU 11:25
PROVIDERS: Hospitalist; Student in an Organized Health Care Education/Training Program; Admitting Provider Internal Medicine; Emergency Provider Emergency Medicine; PCP Family Medicine; Referring Provider Emergency Medicine; Visit Provider Internal Medicine
DX: I48.91 Unspecified atrial fibrillation (principal); I50.30 Unspecified diastolic (congestive) heart failure; N17.9 Acute kidney failure, unspecified; N39.0 Urinary tract infection, site not specified; L30.4 Erythema intertrigo; E11.9 Type 2 diabetes mellitus without complications; I11.0 Hypertensive heart disease with heart failure; I25.10 Atherosclerotic heart disease of native coronary artery without angina pectoris; C73 Malignant neoplasm of thyroid gland; L08.89 Other specified local infections of the skin and subcutaneous tissue; E78.5 Hyperlipidemia, unspecified; I25.2 Old myocardial infarction; Z79.4 Long term (current) use of insulin; Z79.01 Long term (current) use of anticoagulants; Z95.2 Presence of prosthetic heart valve; Z79.84 Long term (current) use of oral hypoglycemic drugs; Z95.5 Presence of coronary angioplasty implant and graft
CPT/HCPCS: 36415; 71045; 80048; 80053; 81001; 82550; 82962; 83690; 83735; 83880; 84443; 84484; 85025; 85610; 85730; 87077; 87086; 87797; 93005; 93010; 96365; 96366; 96368; 96375; 97161; 97530; 99284; 99291; J0696; J1160; J1815; J1940; J3475

== ENCOUNTER → 2024-01-01 11:19 | Outpatient (CLI) | payer OTHER, SELFPAY ==
[2023-12-19 13:37] VITALS: BMI 39.3
[2024-01-01 12:51] LABS: Hemoglobin A1C% w Est Avg Glu 6.6 % (4.0-6.0)
[2024-01-01 12:54] LABS: Alanine Aminotransferase 11 IU/L (<35); Albumin 3.9 g/dL (3.5-5.0); Alkaline Phosphatase 57 U/L (38-126); Aspartate Aminotransferase 16 IU/L (14-36); BUN Creatinine Ratio 15.7 (6-22); Bilirubin Total 0.5 mg/dL (0.2-1.3); Blood Urea Nitrogen 20 mg/dL (7-17); Calcium 9.2 mg/dL (8.4-10.2); Carbon Dioxide 30 mmol/L (22-32); Chloride 106 mmol/L (98-107); Estimated Glomerular Filt Rate 45 mL/min (>60); Globulin 3.8 g/dL (1.7-4.1); Glucose 106 mg/dL (80-110); HEMOLYSIS < 15 (0-50); Potassium 4.5 mmol/L (3.4-5.1); Sodium 139 mmol/L (137-145); Total Protein 7.7 g/dL (6.3-8.2)
[2024-01-01 13:22] LABS: TSH w/ Reflex to FT4 1.88 uIU/mL (0.47-4.68)
[2024-01-01 14:30] LABS: Appearance Urine UA CLOUDY; Bilirubin Urine UA NEGATIVE (NEGATIVE); Color Urine UA YELLOW; Glucose Urine UA 3+ g/dL (Negative); Ketones Urine UA NEGATIVE (NEGATIVE); Leukocyte Esterase Urine UA NEGATIVE (NEGATIVE); Nitrite Urine UA NEGATIVE (Negative); Occult Blood Urine UA TRACE-INTACT (Negative); Protein Urine UA NEGATIVE (Negative); Specific Gravity Urine UA 1.025 (1.000-1.035); Urobilinogen Urine UA 0.2 E.U./dL (0.2)
[2024-01-01 14:31] LABS: RBC Urine 1-5/HPF (0-5/HPF); Urine Volume 10mL (spun); WBC Urine 1-5/HPF (0-5/HPF)
[2024-01-01 14:32] LABS: Bacteria Urine Few (2-10); Calcium Oxalate Crystals Urine Few; Culture Indicated Urine Cult Not Indicated; Mucus Urine 2+ (Negative); Squamous Epithelial Cell Urine 5-10 /HPF (0-5/HPF)
== END ==
PROVIDERS: PCP Family Medicine; Referring Provider Family Medicine; Visit Provider Family Medicine
DX: I25.10 Atherosclerotic heart disease of native coronary artery without angina pectoris (principal); I10 Essential (primary) hypertension; E78.5 Hyperlipidemia, unspecified; I50.9 Heart failure, unspecified; I48.91 Unspecified atrial fibrillation; N39.0 Urinary tract infection, site not specified
CPT/HCPCS: 36415; 80053; 81001; 83036; 84443

== ENCOUNTER 2024-01-04 12:09 | Emergency (ER) | payer OTHER, SELFPAY ==
[2023-12-19 13:37] VITALS: BMI 39.3
[2024-01-04] VITALS (9 sets, daily range): BP systolic 121–160; BP diastolic 58–71; PULSE 61–67; RESP 14; TEMP 36.9; O2SAT 98–99; BMI 49.4
--- NOTE | 2024-01-04 | DI.RAD.S_ITS ---
PROCEDURE: XR WRIST RT MIN 3V INDICATIONS: RIGHT WRIST PAIN AFTER FALL TECHNIQUE: A total of 4 views of the wrist were acquired. COMPARISON: None. FINDINGS: Bones: No fractures or dislocations. No suspicious bony lesions. Soft tissues: No suspicious soft tissue calcifications. IMPRESSION: No acute bony abnormality. Osteoarthritis at the base of the 1st metacarpal is moderate to moderately severe. Dictated by: Narayan Silver M.D. on 01/04/2024 at 13:09 Approved by: Narayan Silver M.D. on 01/04/2024 at 13:11
--- NOTE | 2024-01-04 12:17 | DI.CT.S_ITS ---
PROCEDURE: CT HEAD/BRAIN WO CON INDICATIONS: fall on thinner TECHNIQUE: Noncontrast 4.5 mm thick angled axial sections acquired from the foramen magnum to the vertex, with coronal and sagittal reformats. For radiation dose reduction, the following was used: automated exposure control, adjustment of mA and/or kV according to patient size. COMPARISON: [facility], CT, CT CERVICAL SPINE WO CON, 01/04/2024, 12:28. [facility], CT, CT HEAD/BRAIN WO CON, 03/22/2022, 11:38. [facility], CT, CT HEAD/BRAIN WO CON, 01/07/2021, 11:00. FINDINGS: Image quality: Diagnostic. CSF spaces: Basal cisterns are patent. No extra-axial fluid collections. The ventricles are symmetric in size and shape. Brain: No intracranial bleeds or masses. There is cerebral volume loss for age, with resultant ventricular and sulcal prominence. There are periventricular and deep white matter chronic small vessel ischemic changes. There is intracranial internal carotid artery atherosclerosis. Skull and face: Calvarium and visualized facial bones appear intact, without suspicious lesions. Sinuses: Visualized sinuses and mastoids are clear. IMPRESSION: No trauma found. Stable encephalomalacia of the right frontal region involving the right basal ganglia. No new ischemic injury is seen. Dictated by: Narayan Silver M.D. on 01/04/2024 at 13:13 Approved by: Narayan Silver M.D. on 01/04/2024 at 13:14
--- NOTE | 2024-01-04 12:17 | DI.CT.S_ITS ---
PROCEDURE: CT CERVICAL SPINE WO CON INDICATIONS: fall from standing, c/o right neck pain TECHNIQUE: Noncontrast 3 mm thick sections acquired from the skull base to the T4 level. Sagittal and coronal reformats were then constructed. For radiation dose reduction, the following was used: automated exposure control, adjustment of mA and/or kV according to patient size. COMPARISON: None. FINDINGS: Image quality: Excellent. Bones: No fractures or dislocations. Visualized superior ribs are intact. Soft tissues: Prevertebral soft tissues are normal in thickness. No paravertebral hematomas. No apical pneumothoraces. IMPRESSION: No displaced fracture or traumatic subluxation. Moderate mid and lower cervical degenerative disc disease and facet osteoarthritis. Dictated by: Narayan Silver M.D. on 01/04/2024 at 13:11 Approved by: Narayan Silver M.D. on 01/04/2024 at 13:12
--- NOTE | 2024-01-04 12:17 | DI.RAD.S_ITS ---
PROCEDURE: XR SHOULDER RT MIN 2V INDICATIONS: fall, c/o right shoulder pain TECHNIQUE: 3 views of the shoulder were acquired. COMPARISON: None. FINDINGS: Bones: No fractures or dislocations. No suspicious bony lesions. Visualized ribs appear intact. Soft tissues: No suspicious soft tissue calcifications. IMPRESSION: No acute bony abnormality. Moderate to moderately severe AC joint and mild glenohumeral joint osteoarthritis. Dictated by: Narayan Silver M.D. on 01/04/2024 at 13:08 Approved by: Narayan Silver M.D. on 01/04/2024 at 13:09
--- NOTE | 2024-01-04 12:20 | ED_ITS ---
HPI - Fall <Danni Begum PA-C - Last Filed: 01/04/24 17:36> General Chief Complaint: Fall Stated Complaint: GLF + thinner, right wrist pain Time Seen by Provider: 01/04/24 12:13 History of Present Illness HPI Narrative: Patient is a 73-year-old female with past medical history significant for CHF, diabetes, AFib on Eliquis, history TIA, s/p TAVR, NSTEMI, and hypertension who presents after fall. She is on Eliquis. She states she was shaking out a rug and bent over and fell forward onto her forehead. She isn't sure if she was dizzy prior to the fall. She laid on the floor for approximately 1 hour prior to calling EMS, but reports being able to walk to the ambulance after the fall. She is complaining of right wrist, right shoulder and right neck pain, as well as mild headache. She denies chest pain, recent fever or chills, shortness of breath. She states she was feeling well prior to the incident. She has not taken her insulin today. She lives with her son, who is her caregiver, but was at work when she fell. Related Data Home Medications Medication Instructions Recorded Confirmed atorvastatin 80 mg tablet (Lipitor) 80 mg PO QPM 06/02/23 01/01/24 insulin glargine 100 unit/mL (3 40 unit SUBCUT QAM 06/02/23 01/01/24 mL) subcutaneous pen (Lantus Solostar U-100 Insulin) empagliflozin 25 mg tablet 25 mg PO DAILY 11/10/23 01/01/24 (Jardiance) insulin lispro 100 unit/mL See Rx Instructions .Route .COMPLEX 12/19/23 01/01/24 subcutaneous pen (Humalog KwikPen (U-100) Insulin) Previous Rx's Medication Instructions Recorded Parking Permit... #1 ea 09/08/20 pen needle, diabetic 29 gauge x #100 ea 03/09/2210/16 (Comfort EZ Pen [place]) insulin lispro 100 unit/mL 1 sliding scale dose SUBCUT 04/24/23 subcutaneous pen (Humalog KwikPen USEASDIRECTD #15 mL (U-100) Insulin) apixaban 5 mg tablet (Eliquis) 5 mg PO BID #180 tabs 10/19/23 blood sugar diagnostic (True #100 strips 10/30/23 Metrix Glucose Test Strip) clopidogrel 75 mg tablet 75 mg PO QAM #90 tabs 11/07/23 diltiazem HCl 120 mg 240 mg (2 x 120 mg) PO BID #180 11/07/23 capsule,extended release 12 hr caps metformin 500 mg tablet 1,000 mg (2 x 500 mg) PO BID #360 11/07/23 tabs metoprolol succinate 50 mg 50 mg PO DAILY #90 tabs 11/07/23 tablet,extended release 24 hr nitroglycerin 0.4 mg sublingual 0.4 mg sublingual Q5-15M PRN chest 11/07/23 tablet pain #90 tabs amiodarone 200 mg tablet 200 mg PO BID #180 tabs 12/25/23 nystatin 100,000 unit/gram topical 1 applic topical TID #60 grams 01/01/24 cream cefdinir 300 mg capsule 300 mg PO BID #10 caps 01/04/24 Allergies Allergy/AdvReac Type Severity Reaction Status Date / Time Sulfa (Sulfonamide Allergy Mild RASH Verified 01/01/24 10:34 Antibiotics) Review of Systems <Danni Begum PA-C - Last Filed: 01/04/24 17:36> Review of Systems ROS Unobtainable: All systems reviewed & are unremarkable except as noted in HPI and below Patient History <Danni Begum PA-C - Last Filed: 01/04/24 17:36> Medical History Acute kidney injury Appendicitis with perforation Vertigo Sedentary lifestyle Stage II pressure ulcer of sacral region (~02/2023) Hyperlipidemia Thyroid nodule Incontinence Breast screening Abnormal mammogram of left breast NSTEMI (non-ST elevated myocardial infarction) (09/2018) Recent heart attack Coronary artery disease Osteopenia (05/20/14) Knee osteoarthritis Hypertension (~2011) Diabetes mellitus (~2011) Rheumatoid arthritis Colon polyps (08/31/14) Surgical History History of bilateral knee replacement (2009) History of colonoscopy with polypectomy (08/31/14) History of left cataract surgery (03/23/15) History of right cataract surgery (04/06/15) Anesthesia History of knee replacement History of knee replacement Status post delivery (12/21/78) Family History Brother Drowning Father Heart disease Mother Diabetes mellitus Sister Bone cancer Sister Bone cancer Social History marital status: household members: family and children Smoking Status: Never smoker alcohol intake: current substance use type: does not use Smoking Status: Never smoker alcohol intake frequency: holidays/special occasions only Alcohol type: hard liquor Substance Use Type: does not use Exam <Danni Begum PA-C - Last Filed: 01/04/24 17:36> Narrative Exam Narrative: GENERAL: 73 year old patient appears stated age. Well-developed patient, in no acute distress. NEURO: Patient is alert and oriented x3 and with normal mood and affect. Cranial nerves II through XII are intact and there is no appreciable numbness or weakness. HEAD: Atraumatic. Normocephalic. EYES: Pupils equal round and reactive. Extraocular motions intact. No scleral icterus. No injection or drainage. ENT: Nose without bleeding or purulent drainage. NECK: Trachea midline. Non tender CARDIOVASCULAR: Regular rate and rhythm, loud systolic murmur RESPIRATORY: Clear to auscultation. Breath sounds equal bilaterally. No wheezes, rales, or rhonchi. GASTROINTESTINAL: Abdomen soft, non-tender, nondistended. EXTREMITIES: Tenderness over the anterior right shoulder and the dorsal right wrist with moderate palpation. Range of motion is intact. Pain with light palpation of the right C-spine paraspinals. No step-offs. SKIN: No rash or erythema of visible areas. Scattered scratches that are scabbed over bilateral upper extremities and lower extremities. She reports these are from her dog. Initial Vital Signs Initial Vital Signs: Vital Signs Pulse Rate 62 01/04/24 12:11 Blood Pressure 153/65 H 01/04/24 12:11 Pulse Oximetry 99 01/04/24 12:11 <Mickie Garibay DO - Last Filed: 01/04/24 19:34> Initial Vital Signs Initial Vital Signs: Vital Signs Pulse Rate 62 01/04/24 12:11 Blood Pressure 153/65 H 01/04/24 12:11 Pulse Oximetry 99 01/04/24 12:11 Scores <OMER Murdock Last Filed: 01/04/24 17:36> [place] CT Head Rule Age <16 years old: No Patient on blood thinners: Yes Seizure after injury: No Exclusion: Patient meets exclusion criteria <DO Nikolai Friedman Last Filed: 01/04/24 19:34> [place] CT Head Rule Exclusion: Patient meets exclusion criteria Course <OMER Murdock Last Filed: 01/04/24 17:36> Orders Ordered: ED Orders 01/04/24 12:17 CT cervical spine wo con Stat CT head/brain wo con Stat XR shoulder RT min 2V Stat 01/04/24 13:10 Basic Metabolic Panel Stat Complete Blood Count AUTO DIFF Stat 01/04/24 13:34 Ictotest Urine Stat Urinalysis and Microscopic Stat Urine Culture Stat 01/04/24 14:20 EKG-12 Lead Stat Discontinued Medications Acetaminophen (Acetaminophen 325 Mg Tablet) 975 mg PO NOW ONE Stop: 01/04/24 13:05 Last Admin: 01/04/24 13:12 Dose: 975 mg Documented By: [facility] Vital Signs Vital signs: Vital Signs - 8 hr 01/04/24 12:11 01/04/24 12:11 01/04/24 12:15 Temperature 98.5 F Pulse Rate 62 64 Respiratory Rate 14 Blood Pressure 153/65 H 153/65 H Pulse Oximetry 99 99 Oxygen Delivery Method Room Air 01/04/24 12:46 01/04/24 12:47 01/04/24 12:47 Temperature Pulse Rate 61 61 Respiratory Rate Blood Pressure 160/71 H Pulse Oximetry 98 99 Oxygen Delivery Method 01/04/24 13:00 01/04/24 13:30 01/04/24 13:34 Temperature Pulse Rate 61 Respiratory Rate Blood Pressure 142/65 H Pulse Oximetry 98 98 Oxygen Delivery Method 01/04/24 13:34 01/04/24 14:00 01/04/24 14:01 Temperature Pulse Rate 62 67 67 Respiratory Rate Blood Pressure Pulse Oximetry 99 98 99 Oxygen Delivery Method 01/04/24 14:01 Temperature Pulse Rate Respiratory Rate Blood Pressure 121/58 L Pulse Oximetry Oxygen Delivery Method <Mickie Garibay DO - Last Filed: 01/04/24 19:34> Orders Ordered: ED Orders 01/04/24 12:17 CT cervical spine wo con Stat CT head/brain wo con Stat XR shoulder RT min 2V Stat 01/04/24 13:10 Basic Metabolic Panel Stat Complete Blood Count AUTO DIFF Stat 01/04/24 13:34 Ictotest Urine Stat Urinalysis and Microscopic Stat Urine Culture Stat 01/04/24 14:20 EKG-12 Lead Stat Discontinued Medications Acetaminophen (Acetaminophen 325 Mg Tablet) 975 mg PO NOW ONE Stop: 01/04/24 13:05 Last Admin: 01/04/24 13:12 Dose: 975 mg Documented By: [facility] Vital Signs Vital signs: Vital Signs - 8 hr 01/04/24 12:11 01/04/24 12:11 01/04/24 12:15 Temperature 98.5 F Pulse Rate 62 64 Respiratory Rate 14 Blood Pressure 153/65 H 153/65 H Pulse Oximetry 99 99 Oxygen Delivery Method Room Air 01/04/24 12:46 01/04/24 12:47 01/04/24 12:47 Temperature Pulse Rate 61 61 Respiratory Rate Blood Pressure 160/71 H Pulse Oximetry 98 99 Oxygen Delivery Method 01/04/24 13:00 01/04/24 13:30 01/04/24 13:34 Temperature Pulse Rate 61 Respiratory Rate Blood Pressure 142/65 H Pulse Oximetry 98 98 Oxygen Delivery Method 01/04/24 13:34 01/04/24 14:00 01/04/24 14:01 Temperature Pulse Rate 62 67 67 Respiratory Rate Blood Pressure Pulse Oximetry 99 98 99 Oxygen Delivery Method 01/04/24 14:01 Temperature Pulse Rate Respiratory Rate Blood Pressure 121/58 L Pulse Oximetry Oxygen Delivery Method MDM - Fall <Danni Begum PA-C - Last Filed: 01/04/24 17:36> Lab Data 01/04/24 13:10 01/04/24 13:10 Labs: Lab Results 01/04/24 01/04/24 Range/Units 13:10 13:34 WBC 8.5 (4.5-11.0) X10^3/uL RBC 4.15 (4.0-5.2) X10^6/uL Hgb 11.1 L (12.0-16.0) g/dL Hct 33.9 L (36-46) % MCV 81.7 (80-100) fL MCH 26.7 (26-34) PG MCHC 32.7 (30-36) % RDW 15.7 H (11.6-14.8) % Plt Count 233 (150-400) X10^3/uL Neut % (Auto) 75.3 H (50-75) % Lymph % (Auto) 15.9 L (25-40) % [place] % (Auto) 6.7 (3-14) % Eos % (Auto) 1.4 L (2-4) % Baso % (Auto) 0.7 (0-2) % Neut # (Auto) 6400 (1867-3955) /uL Lymph # (Auto) 1300 (7506-1625) /uL [place] # (Auto) 600 (0-900) /uL Eos # (Auto) 100 (0-450) /uL Baso # (Auto) 100 (0-100) /uL Sodium 138 (137-145) mmol/L Potassium 4.1 (3.4-5.1) mmol/L Chloride 107 (98-107) mmol/L Carbon Dioxide 27 (22-32) mmol/L BUN 23 H (7-17) mg/dL Creatinine 1.17 H (0.52-1.04) mg/dL Estimated GFR 50 L (>60) mL/min BUN/Creatinine Ratio 19.7 (6-22) Glucose 128 H (80-110) mg/dL Calcium 9.1 (8.4-10.2) mg/dL Urine Color Brown Urine Appearance Cloudy Urine pH 6.0 (4.5-8.0) Ur Specific [place] 1.020 (1.000-1.035) Urine Protein 3+ H (Negative) Urine Glucose (UA) 3+ H (Negative) g/dL Urine Ketones Negative (NEGATIVE) Urine Occult Blood 3+ H (Negative) Urine Nitrate Positive H (Negative) Urine Bilirubin 1+ H (NEGATIVE) Ur Bilirubin Confirm Negative (Negative) Urine Urobilinogen 1.0 (0.2) E.U./dL Ur Leukocyte Esterase Negative (NEGATIVE) Urine RBC >100/hpf H (0-5/HPF) Urine WBC 1-5/hpf (0-5/HPF) Ur Squamous Epith Cells None seen (0-5/HPF) Urine Bacteria Many (>30) H (None) Ur Culture Indicated? Specimen cultured Vol Urine Centrifuged 10ml (spun) Imaging Data Extremity x-ray #1: Radiologist's Impression: PROCEDURE: XR SHOULDER RT MIN 2V INDICATIONS: fall, c/o right shoulder pain TECHNIQUE: 3 views of the shoulder were acquired. COMPARISON: None. FINDINGS: Bones: No fractures or dislocations. No suspicious bony lesions. Visualized ribs appear intact. Soft tissues: No suspicious soft tissue calcifications. IMPRESSION: No acute bony abnormality. Moderate to moderately severe AC joint and mild glenohumeral joint osteoarthritis. Dictated by: Narayan Silver M.D. on 01/04/2024 at 13:08 Approved by: Narayan Silver M.D. on 01/04/2024 at 13:09 Extremity x-ray #2: Radiologist's Impression: PROCEDURE: XR WRIST RT MIN 3V INDICATIONS: RIGHT WRIST PAIN AFTER FALL TECHNIQUE: A total of 4 views of the wrist were acquired. COMPARISON: None. FINDINGS: Bones: No fractures or dislocations. No suspicious bony lesions. Soft tissues: No suspicious soft tissue calcifications. IMPRESSION: No acute bony abnormality. Osteoarthritis at the base of the 1st metacarpal is moderate to moderately severe. Dictated by: Narayan Silver M.D. on 01/04/2024 at 13:09 Approved by: Narayan Silver M.D. on 01/04/2024 at 13:11 CT scan - head: Radiologist's Impression: PROCEDURE: CT HEAD/BRAIN WO CON INDICATIONS: fall on thinner TECHNIQUE: Noncontrast 4.5 mm thick angled axial sections acquired from the foramen magnum to the vertex, with coronal and sagittal reformats. For radiation dose reduction, the following was used: automated exposure control, adjustment of mA and/or kV according to patient size. COMPARISON: [facility], CT, CT CERVICAL SPINE WO CON, 01/04/2024, 12:28. [facility], CT, CT HEAD/BRAIN WO CON, 03/22/2022, 11:38. [facility], CT, CT HEAD/BRAIN WO CON, 01/07/2021, 11:00. FINDINGS: Image quality: Diagnostic. CSF spaces: Basal cisterns are patent. No extra-axial fluid collections. The ventricles are symmetric in size and shape. Brain: No intracranial bleeds or masses. There is cerebral volume loss for age, with resultant ventricular and sulcal prominence. There are periventricular and deep white matter chronic small vessel ischemic changes. There is intracranial internal carotid artery atherosclerosis. Skull and face: Calvarium and visualized facial bones appear intact, without suspicious lesions. Sinuses: Visualized sinuses and mastoids are clear. IMPRESSION: No trauma found. Stable encephalomalacia of the right frontal region involving the right basal ganglia. No new ischemic injury is seen. Dictated by: Narayan Silver M.D. on 01/04/2024 at 13:13 Approved by: Narayan Silver M.D. on 01/04/2024 at 13:14 CT - cervical spine: Radiologist's Impression: PROCEDURE: CT CERVICAL SPINE WO CON INDICATIONS: fall from standing, c/o right neck pain TECHNIQUE: Noncontrast 3 mm thick sections acquired from the skull base to the T4 level. Sagittal and coronal reformats were then constructed. For radiation dose reduction, the following was used: automated exposure control, adjustment of mA and/or kV according to patient size. COMPARISON: None. FINDINGS: Image quality: Excellent. Bones: No fractures or dislocations. Visualized superior ribs are intact. Soft tissues: Prevertebral soft tissues are normal in thickness. No paravertebral hematomas. No apical pneumothoraces. IMPRESSION: No displaced fracture or traumatic subluxation. Moderate mid and lower cervical degenerative disc disease and facet osteoarthritis. Dictated by: Narayan Silver M.D. on 01/04/2024 at 13:11 Approved by: Narayan Silver M.D. on 01/04/2024 at 13:12 [facility] Narrative Medical decision making narrative: Multiple etiologies for patient's symptoms considered including, but not limited to: Intracranial hemorrhage, fracture or dislocation of the C-spine, skull fracture, right wrist fracture versus sprain Patient is a 73-year-old female who fell, likely secondary to losing her balance but not sure that she did not get dizzy, while she was shaking out a rug. Unclear if there was loss of consciousness. She spent about 1 hour on the floor prior to calling EMS. She was able to walk to the ambulance. She is complaining of right neck pain, right shoulder pain and right wrist pain. She reports feeling well prior to the fall. CT imaging of head and neck is indicated as well as x-rays of the right shoulder and right wrist. Pain managed with Tylenol and ice pack. Labs, urine and EKG ordered to assess for electrolyte abnormality, urinary tract infection, arrhythmia that could have preceded the fall since patient is not sure exactly what happened. CT imaging of the head and neck do not show any acute abnormalities; head CT shows a stable encephalomalacia of the right frontal region involving the right basal ganglia. No evidence of trauma or new ischemic injury. X-rays of the right shoulder and right wrist do not show any acute abnormalities, do note osteoarthritis. Labs show no leukocytosis, stable anemia, stable renal function. Urine shows 3+ protein, 3+ glucose, 3+ blood, positive nitrates, 1+ bilirubin, and many bacteria; sent for culture. Right wrist placed in splint, started on cefdinir for UTI based on previous cultures. Encouraged rest, ice, tylenol for pain and aches, will likely feel worse tomorrow. Patient discharged to her son. Patient states understanding of discharge instructions and return precautions. <Mickie Garibay, - Last Filed: 01/04/24 19:34> Lab Data Labs: Lab Results 01/04/24 01/04/24 Range/Units 13:10 13:34 WBC 8.5 (4.5-11.0) X10^3/uL RBC 4.15 (4.0-5.2) X10^6/uL Hgb 11.1 L (12.0-16.0) g/dL Hct 33.9 L (36-46) % MCV 81.7 (80-100) fL MCH 26.7 (26-34) PG MCHC 32.7 (30-36) % RDW 15.7 H (11.6-14.8) % Plt Count 233 (150-400) X10^3/uL Neut % (Auto) 75.3 H (50-75) % Lymph % (Auto) 15.9 L (25-40) % [place] % (Auto) 6.7 (3-14) % Eos % (Auto) 1.4 L (2-4) % Baso % (Auto) 0.7 (0-2) % Neut # (Auto) 6400 (9518-9952) /uL Lymph # (Auto) 1300 (7514-8994) /uL [place] # (Auto) 600 (0-900) /uL Eos # (Auto) 100 (0-450) /uL Baso # (Auto) 100 (0-100) /uL Sodium 138 (137-145) mmol/L Potassium 4.1 (3.4-5.1) mmol/L Chloride 107 (98-107) mmol/L Carbon Dioxide 27 (22-32) mmol/L BUN 23 H (7-17) mg/dL Creatinine 1.17 H (0.52-1.04) mg/dL Estimated GFR 50 L (>60) mL/min BUN/Creatinine Ratio 19.7 (6-22) Glucose 128 H (80-110) mg/dL Calcium 9.1 (8.4-10.2) mg/dL Urine Color Brown Urine Appearance Cloudy Urine pH 6.0 (4.5-8.0) Ur Specific [place] 1.020 (1.000-1.035) Urine Protein 3+ H (Negative) Urine Glucose (UA) 3+ H (Negative) g/dL Urine Ketones Negative (NEGATIVE) Urine Occult Blood 3+ H (Negative) Urine Nitrate Positive H (Negative) Urine Bilirubin 1+ H (NEGATIVE) Ur Bilirubin Confirm Negative (Negative) Urine Urobilinogen 1.0 (0.2) E.U./dL Ur Leukocyte Esterase Negative (NEGATIVE) Urine RBC >100/hpf H (0-5/HPF) Urine WBC 1-5/hpf (0-5/HPF) Ur Squamous Epith Cells None seen (0-5/HPF) Urine Bacteria Many (>30) H (None) Ur Culture Indicated? Specimen cultured Vol Urine Centrifuged 10ml (spun) Discharge Plan Departure Patient Disposition: Home Clinical Impression: Acute UTI Fall Qualifiers: Encounter type: initial encounter Qualified Code(s): W19.XXXA - Unspecified fall, initial encounter Right wrist sprain Qualifiers: Encounter type: initial encounter Qualified Code(s): S63.501A - Unspecified sprain of right wrist, initial encounter Sprain of cervical neck Qualifiers: Encounter type: initial encounter Qualified Code(s): S13.9XXA - Sprain of joints and ligaments of unspecified parts of neck, initial encounter Instructions: DI for Urinary Tract Infection (UTI), How To Perform RICE (Rest, Ice, Compress, Elevate), How to Prevent Falls Activity Restrictions/Additional Instructions: *You have been diagnosed with urinary tract infection, right wrist sprain and sprain of your neck. It is possible that your urinary tract infection contributed to the fall today by making you dizzy. I have sent a prescription for an antibiotic to your pharmacy. Please take this along with the medication prescribed by Dr. Ruggiero for your skin rash. I suspect that you will be more sore over the next 2 days after this fall in your right arm and neck. There is no evidence of fracture or dislocation on the x-ray and CT scans but there is soft tissue strain. You can use ice for 15 minutes every 1-2 hours while awake over these areas and take Tylenol for pain. Please return to the emergency department if you experience any severe headache, confusion, decreased level of consciousness, severe dizziness or other concerning symptoms. *What to do: *Please continue to take your regular medications as directed. [x ] New medication prescriptions sent to your pharmacy: [[facility]] [ ] New medication written as a paper prescription [ ] No new medications given *Please follow up with your primary care provider in 2-3 days, call for an appointment. Let them know you were seen in the Emergency Department and that we ask that you be seen in follow up. We will electronically transmit a record of today's note if your PCP is in our system *If you do not have a primary care provider please contact the [facility] Resource line at [phone]. They will ask some questions about your medical history and help get you set up with a doctor in the community. *Return to Emergency Department if you should have any new, worsening or concerning symptoms, such as [fever greater than 101 F, shaking chills, worsening pain, persistent vomiting or other concerning symptoms]. Prescriptions: New cefdinir 300 mg capsule 300 mg PO BID Qty: 10 0RF No Action (DME) pen needle, diabetic [Comfort EZ Pen [place]] 29 gauge x 1/2 needle See Rx Instructions .ROUTE .MEDSUPPLY Qty: 100 3RF Rx Instructions: use to check blood glucose 3x per day (DME) True Metrix Glucose Test Strip Strip See Rx Instructions .ROUTE .COMPLEX Qty: 100 3RF Dose Instruction: USE TO TEST BLOOD SUGAR DAILY Rx Instructions: USE TO TEST BLOOD SUGAR DAILY amiodarone 200 mg tablet 200 mg PO BID Qty: 180 1RF (DME) Parking Permit... See Rx Instructions .Route .MEDSUPPLY Qty: 1 0RF Rx Instructions: Patient meets criteria for permanent parking placard. insulin lispro [Humalog KwikPen Insulin] 100 unit/mL insulin pen 1 sliding scale dose SUBCUT USEASDIRECTD Qty: 15 3RF Rx Instructions: slide scale 2-14 units SQ TID Eliquis 5 mg tablet 5 mg PO BID Qty: 180 2RF metoprolol succinate 50 mg tablet extended release 24 hr 50 mg PO DAILY Qty: 90 3RF diltiazem HCl 120 mg capsule,extended release 12 hr 240 mg PO BID Qty: 180 3RF clopidogrel 75 mg tablet 75 mg PO QAM Qty: 90 3RF metformin 500 mg tablet 1,000 mg PO BID Qty: 360 3RF Rx Instructions: TAKE TWO TABLETS BY MOUTH TWICE DAILY nitroglycerin 0.4 mg tablet, sublingual 0.4 mg SL Q5-15M PRN (Reason: chest pain) Qty: 90 11RF Patient Comments: patient has prescription but has not taken yet Rx Instructions: until response; do not exceed 3 doses per episode nystatin 100,000 unit/gram cream 1 applic topical TID Qty: 60 1RF atorvastatin [Lipitor] 80 mg tablet 80 mg PO QPM insulin glargine [Lantus Solostar U-100 Insulin] 100 unit/mL (3 mL) insulin pen 40 unit SUBCUT QAM Patient Comments: pt states that she takes Lantus in the morning instead of nighttime. insulin lispro [Humalog KwikPen Insulin] 100 unit/mL insulin pen See Rx Instructions .ROUTE .COMPLEX Patient Comments: [NO ORIGINAL SIG] Rx Instructions: sliding scale Jardiance 25 mg tablet 25 mg PO DAILY Referrals: Chino Ruggiero MD [Primary Care Provider] - Stand Alone Forms: Patient Portal/API ED Sign-out <Mickie Garibay DO - Last Filed: 01/04/24 19:34> Cosign ED Attending Cosignature Attestation: I was immediately available in the department for consultation.
[2024-01-04] MEDS: ACETAMINOPHEN 325 MG TABLET 975 MG PO (13:12)
[2024-01-04 13:19] LABS: Add Manual Diff / Slide Review NO; Basophils Absolute Auto 100 /uL (0-100); Basophils Percent Auto 0.7 % (0-2); Eosinophils Absolute Auto 100 /uL (0-450); Eosinophils Percent Auto 1.4 % (2-4); Hematocrit 33.9 % (36-46); Hemoglobin 11.1 g/dL (12.0-16.0); Lymphocytes Absolute Auto 1300 /uL (1100-4500); Lymphocytes Percent Auto 15.9 % (25-40); Mean Corpuscular HGB Conc 32.7 % (30-36); Mean Corpuscular Hemoglobin 26.7 PG (26-34); Mean Corpuscular Volume 81.7 fL (80-100); Monocytes Absolute Auto 600 /uL (0-900); Monocytes Percent Auto 6.7 % (3-14); Neutrophils Absolute Auto 6400 /uL (1500-7000); Neutrophils Percent Auto 75.3 % (50-75); Platelet Count 233 X10^3/uL (150-400); Red Blood Cell Count 4.15 X10^6/uL (4.0-5.2); Red Cell Distribution Width 15.7 % (11.6-14.8); White Blood Cell Count 8.5 X10^3/uL (4.5-11.0)
[2024-01-04 13:33] LABS: BUN Creatinine Ratio 19.7 (6-22); Blood Urea Nitrogen 23 mg/dL (7-17); Calcium 9.1 mg/dL (8.4-10.2); Carbon Dioxide 27 mmol/L (22-32); Chloride 107 mmol/L (98-107); Estimated Glomerular Filt Rate 50 mL/min (>60); Glucose 128 mg/dL (80-110); HEMOLYSIS < 15 (0-50); Potassium 4.1 mmol/L (3.4-5.1); Sodium 138 mmol/L (137-145)
[2024-01-04 13:51] LABS: Appearance Urine UA CLOUDY; Bilirubin Urine UA 1+ (NEGATIVE); Color Urine UA BROWN; Glucose Urine UA 3+ g/dL (Negative); Ketones Urine UA NEGATIVE (NEGATIVE); Leukocyte Esterase Urine UA NEGATIVE (NEGATIVE); Nitrite Urine UA POSITIVE (Negative); Occult Blood Urine UA 3+ (Negative); Protein Urine UA 3+ (Negative)
[2024-01-04 14:03] LABS: Bacteria Urine Many (>30); Ictotest Urine Negative (Negative); RBC Urine >100/HPF (0-5/HPF); Squamous Epithelial Cell Urine None Seen (0-5/HPF); Urine Volume 10mL (spun); WBC Urine 1-5/HPF (0-5/HPF)
[2024-01-04 14:04] LABS: Culture Indicated Urine Specimen Cultured
== END 2024-01-04 16:55 | disposition home or self-care (01) ==
PROVIDERS: Emergency Provider Physician Assistant; PCP Family Medicine
DX: N39.0 Urinary tract infection, site not specified (principal); S63.501A Unspecified sprain of right wrist, initial encounter; S13.9XXA Sprain of joints and ligaments of unspecified parts of neck, initial encounter; Z79.01 Long term (current) use of anticoagulants; W18.30XA Fall on same level, unspecified, initial encounter
CPT/HCPCS: 36415; 70450; 72125; 73030; 73110; 80048; 81001; 85025; 87077; 87086; 87186; 93005; 99284

== ENCOUNTER 2024-01-16 01:24 | Inpatient (IN) | payer OTHER, SELFPAY ==
[2023-12-19 13:37] VITALS: BMI 39.3
[2024-01-16] VITALS (21 sets, daily range): BP systolic 136–218; BP diastolic 47–94; PULSE 61–77; RESP 16–21; TEMP 35.9–37.4; O2SAT 88–98; BMI 44.7
--- NOTE | 2024-01-16 01:30 | ED.ABDPAIN ---
HPI - Abdominal Pain General Chief Complaint: Abdominal Pain Stated Complaint: R abd pain Time Seen by Provider: 01/16/24 01:26 History of Present Illness HPI narrative: 73-year-old female with history CHF, paroxysmal AFib on Eliquis, aortic stenosis status post TAVR, CAD, IDDM presents by EMS from home for RLQ abdominal pain. Pain began approximately 1 hour prior to arrival and woke her from sleep. Located at the crease between abdomen and thigh. EMS notes patient is frequently visited by ambulance crew. House is in poor repair with dog feces around the home. Patient states she is compliant with medications but can't name them, stating my son lays them out for me and I take them. Reports being treated for UTI recently, but doesn't know the name of the antibiotics. Records show dx of UTI on 01/03 and DC with 5 days of cefdinir Related Data Home Medications Medication Instructions Recorded Confirmed atorvastatin 80 mg tablet (Lipitor) 80 mg PO QPM 06/02/23 01/01/24 empagliflozin 25 mg tablet 25 mg PO DAILY 11/10/23 01/01/24 (Jardiance) insulin lispro 100 unit/mL See Rx Instructions .Route .COMPLEX 12/19/23 01/01/24 subcutaneous pen (Humalog KwikPen (U-100) Insulin) Previous Rx's Medication Instructions Recorded Parking Permit... #1 ea 09/08/20 pen needle, diabetic 29 gauge x #100 ea 03/09/2210/16 (Comfort EZ Pen [place]) insulin lispro 100 unit/mL 1 sliding scale dose SUBCUT 04/24/23 subcutaneous pen (Humalog KwikPen USEASDIRECTD #15 mL (U-100) Insulin) apixaban 5 mg tablet (Eliquis) 5 mg PO BID #180 tabs 10/19/23 blood sugar diagnostic (True #100 strips 10/30/23 Metrix Glucose Test Strip) clopidogrel 75 mg tablet 75 mg PO QAM #90 tabs 11/07/23 diltiazem HCl 120 mg 240 mg (2 x 120 mg) PO BID #180 11/07/23 capsule,extended release 12 hr caps metformin 500 mg tablet 1,000 mg (2 x 500 mg) PO BID #360 11/07/23 tabs metoprolol succinate 50 mg 50 mg PO DAILY #90 tabs 11/07/23 tablet,extended release 24 hr nitroglycerin 0.4 mg sublingual 0.4 mg sublingual Q5-15M PRN chest 11/07/23 tablet pain #90 tabs amiodarone 200 mg tablet 200 mg PO BID #180 tabs 12/25/23 nystatin 100,000 unit/gram topical 1 applic topical TID #60 grams 01/01/24 cream cefdinir 300 mg capsule 300 mg PO BID #10 caps 01/04/24 insulin glargine 100 unit/mL (3 40 unit (0.4 mL) SUBCUT QAM #3 mL 01/07/24 mL) subcutaneous pen (Lantus Solostar U-100 Insulin) fluconazole 200 mg tablet 200 mg PO DAILY intertrigo Abby 01/10/24 infection #14 tabs Allergies Allergy/AdvReac Type Severity Reaction Status Date / Time Sulfa (Sulfonamide Allergy Mild RASH Verified 01/01/24 10:34 Antibiotics) Review of Systems Review of Systems Narrative: Negative except as noted above Patient History Medical History Acute kidney injury Appendicitis with perforation Vertigo Sedentary lifestyle Stage II pressure ulcer of sacral region (~02/2023) Hyperlipidemia Thyroid nodule Incontinence Breast screening Abnormal mammogram of left breast NSTEMI (non-ST elevated myocardial infarction) (09/2018) Recent heart attack Coronary artery disease Osteopenia (05/20/14) Knee osteoarthritis Hypertension (~2011) Diabetes mellitus (~2011) Rheumatoid arthritis Colon polyps (08/31/14) Surgical History History of bilateral knee replacement (2009) History of colonoscopy with polypectomy (08/31/14) History of left cataract surgery (03/23/15) History of right cataract surgery (04/06/15) Anesthesia History of knee replacement History of knee replacement Status post delivery (12/21/78) Family History Brother Drowning Father Heart disease Mother Diabetes mellitus Sister Bone cancer Sister Bone cancer Social History marital status: household members: family and children Smoking Status: Never smoker alcohol intake: current substance use type: does not use Smoking Status: Never smoker alcohol intake frequency: holidays/special occasions only Alcohol type: hard liquor Substance Use Type: does not use Exam Narrative Exam Narrative: Const: Awake, alert, no acute distress, debilitated, frail, appears chronically unwell Cardiac: regular rate, regular rhythm RESP: unlabored, clear bilaterally, no wheezing GI: Soft, minimal tenderness to deep palpation in the right lower quadrant MSK: Atraumatic, full range of motion, pulses equal Skin: Warm, Dry, intact, no rashes Neuro: AO x3, CN II-XII grossly intact, moves all extremities Initial Vital Signs Initial Vital Signs: Vital Signs Pulse Rate 69 01/16/24 01:27 Blood Pressure 214/94 H 01/16/24 01:27 Pulse Oximetry 96 01/16/24 01:27 Oxygen Delivery Method Room Air 01/16/24 01:27 Course Orders Ordered: ED Orders 01/16/24 01:29 CT abdomen pelvis w con Stat 01/16/24 01:35 CBC Auto Diff [Complete Blood Count AUTO DIFF] Stat CMP [Comprehensive Metabolic Panel] Stat Lactate (Lactic Acid) Stat Lipase Stat MAG [Magnesium] Stat 01/16/24 02:21 Chest [XR chest 1V] Stat 01/16/24 02:27 EKG-12 Lead Stat 01/16/24 02:56 Urinalysis and Microscopic Stat Urine Culture Stat 01/16/24 03:45 Blood Culture Stat 01/16/24 04:05 BNP [NT-proBNP (BNP-Adult 18+)] Stat PT [Prothrombin Time INR] Stat Troponin & CK Cardiac Panel Stat Discontinued Medications Furosemide (Furosemide 40 Mg/4 Ml Vial) 40 mg IV NOW ONE Stop: 01/16/24 02:28 Last Admin: 01/16/24 02:32 Dose: 40 mg Hydralazine HCl (Hydralazine 20 Mg/Ml Vial) 10 mg IV NOW ONE Stop: 01/16/24 03:42 Last Admin: 01/16/24 03:53 Dose: 10 mg Ceftriaxone Sodium 2,000 mg/ (Sodium Chloride) 100 mls @ 200 mls/hr IV NOW ONE Stop: 01/16/24 03:39 Morphine Sulfate (Morphine 4 Mg/Ml Inj) 4 mg IV NOW ONE Stop: 01/16/24 01:28 Last Admin: 01/16/24 01:43 Dose: 4 mg Ondansetron HCl (Ondansetron 4 Mg/2 Ml Inj) 4 mg IV NOW ONE Stop: 01/16/24 01:59 Last Admin: 01/16/24 02:01 Dose: 4 mg Vital Signs Vital signs: Vital Signs - 8 hr 01/16/24 01:27 01/16/24 01:27 01/16/24 01:30 Temperature Pulse Rate 69 67 Respiratory Rate Blood Pressure 214/94 H Pulse Oximetry 96 96 Oxygen Delivery Method Room Air 01/16/24 01:31 01/16/24 01:31 01/16/24 01:31 Temperature 99.3 F Pulse Rate 68 67 Respiratory Rate 20 20 Blood Pressure 214/94 H 193/82 H Pulse Oximetry 97 96 Oxygen Delivery Method Room Air Room Air 01/16/24 02:00 01/16/24 02:01 01/16/24 02:07 Temperature Pulse Rate 77 73 Respiratory Rate Blood Pressure 201/91 H Pulse Oximetry 90 L 91 Oxygen Delivery Method 01/16/24 02:07 01/16/24 02:30 01/16/24 02:30 Temperature Pulse Rate 70 Respiratory Rate 18 Blood Pressure 193/82 H 218/93 H Pulse Oximetry 96 Oxygen Delivery Method 01/16/24 03:00 01/16/24 03:01 01/16/24 03:01 Temperature Pulse Rate 69 69 Respiratory Rate Blood Pressure 199/81 H Pulse Oximetry 88 L 90 L Oxygen Delivery Method Room Air 01/16/24 03:30 01/16/24 03:31 01/16/24 03:31 Temperature Pulse Rate 67 66 Respiratory Rate Blood Pressure 205/82 H Pulse Oximetry 95 95 Oxygen Delivery Method 01/16/24 03:53 Temperature Pulse Rate 66 Respiratory Rate Blood Pressure 205/82 H Pulse Oximetry Oxygen Delivery Method MDM - Abdominal Pain Differential Diagnosis Differential diagnosis: Likely abdominal pain, acute appendicitis and calculus of kidney Lab Data 01/16/24 01:35 01/16/24 01:35 Labs: Lab Results 01/16/24 01/16/24 01/16/24 Range/Units 01:35 02:56 03:40 WBC 15.4 H (4.5-11.0) X10^3/uL RBC 4.31 (4.0-5.2) X10^6/uL Hgb 11.4 L (12.0-16.0) g/dL Hct 34.7 L (36-46) % MCV 80.5 (80-100) fL MCH 26.5 (26-34) PG MCHC 33.0 (30-36) % RDW 15.6 H (11.6-14.8) % Plt Count 290 (150-400) X10^3/uL Neut % (Auto) 86.8 H (50-75) % Lymph % (Auto) 6.1 L (25-40) % [place] % (Auto) 3.3 (3-14) % Eos % (Auto) 1.5 L (2-4) % Baso % (Auto) 2.3 H (0-2) % Neut # (Auto) 71126 H (9762-1654) /uL Lymph # (Auto) 900 L (4235-3881) /uL [place] # (Auto) 500 (0-900) /uL Eos # (Auto) 200 (0-450) /uL Baso # (Auto) 400 H (0-100) /uL Sodium 138 (137-145) mmol/L Potassium 4.7 (3.4-5.1) mmol/L Chloride 108 H (98-107) mmol/L Carbon Dioxide 21 L (22-32) mmol/L BUN 33 H (7-17) mg/dL Creatinine 1.58 H (0.52-1.04) mg/dL Estimated GFR 35 L (>60) mL/min BUN/Creatinine Ratio 20.9 (6-22) Glucose 171 H (80-110) mg/dL Lactate 2.7 H 1.9 (0.7-2.1) mmol/L Calcium 9.2 (8.4-10.2) mg/dL Magnesium 1.6 (1.6-2.3) mg/dL Total Bilirubin 0.4 (0.2-1.3) mg/dL AST 16 (14-36) IU/L ALT 14 (<35) IU/L Alkaline Phosphatase 61 (38-126) U/L Total Protein 7.4 (6.3-8.2) g/dL Albumin 3.8 (3.5-5.0) g/dL Globulin 3.6 (1.7-4.1) g/dL Albumin/Globulin Ratio 1.1 (1.0-2.8) Lipase 183 (23-300) U/L Urine Color Brown Urine Appearance Cloudy Urine pH 5.0 (4.5-8.0) Ur Specific [place] 1.020 (1.000-1.035) Urine Protein 1+ H (Negative) Urine Glucose (UA) 3+ H (Negative) g/dL Urine Ketones Negative (NEGATIVE) Urine Occult Blood 3+ H (Negative) Urine Nitrate Positive H (Negative) Urine Bilirubin Negative (NEGATIVE) Urine Urobilinogen 0.2 (0.2) E.U./dL Ur Leukocyte Esterase 1+ H (NEGATIVE) Urine RBC >100/hpf H (0-5/HPF) Urine WBC 30-100/hpf H (0-5/HPF) Ur Squamous Epith Cells 1-5 /hpf (0-5/HPF) Ur Transition Epith Cell 1-5/hpf (0-5/HPF) Urine Bacteria Many (>30) H (None) Ur Culture Indicated? Specimen cultured Vol Urine Centrifuged 10ml (spun) Imaging Data CT scan - abdomen/pelvis: Radiologist's Impression: PROCEDURE: CT ABDOMEN PELVIS W CON INDICATIONS: RLQ ABD PAIN TECHNIQUE: After the administration of intravenous contrast, axial sections acquired from the lung bases to the pubic symphysis. Coronal and sagittal reformats were performed. For radiation dose reduction, the following was used: automated exposure control, adjustment of mA and/or kV according to patient size. COMPARISON: [facility], CT, CT ABDOMEN PELVIS W CON, 06/17/2023, 9:16. FINDINGS: Image quality: Diagnostic. Lower Chest: Trace bilateral pleural effusions with subjacent atelectasis. Aortic valve prosthesis. Coronary artery calcifications. ABDOMEN: Liver: No solid mass. Gallbladder: No radiopaque gallstones or wall thickening. Biliary ducts: No biliary dilation. Pancreas: No ductal dilation. Spleen: Size is within normal limits. Adrenal Glands: No adrenal nodules. Kidneys and Ureters: Redemonstration of bilateral renal calculi measuring up to 5 mm on the right (likely small layering calculi, conglomerate together measures 5 mm with approximate HU of 300). Additional right renal calcifications may represent vascular calcifications versus punctate nephrolithiasis. Largest stone on the left measures 6 mm (HU 300) and is located at the renal hilum. Mildly increased prominence of the right renal collecting system with increasing perinephric stranding. No solid mass. No complex renal cystic lesion which requires follow up. Stomach and Bowel: Normal colonic caliber, without significant wall thickening. Normal caliber appendix in the right lower quadrant. Peritoneum: No abnormal intraperitoneal fluid. No free air. Ventral Wall: No significant ventral hernia. Abdominal Nodes: No retroperitoneal or mesenteric adenopathy by size criteria. Vessels: Aorta and inferior vena cava are normal in size. Aorto bi iliac atherosclerotic calcifications. Redemonstration of retroaortic left renal vein. PELVIS: Pelvic Organs: Unremarkable. Bladder: No bladder wall thickening, accounting for underdistention. Pelvic Nodes: No enlarged lymph nodes. Miscellaneous: No inguinal hernias are seen. Bones: No aggressive osseous abnormality. No acute vertebral body compression fracture. Multilevel degenerative changes of the visualized spine. IMPRESSION: Compared to prior CT 06/17/2023, new right inferior pole calculi measuring up to 5 mm with mildly increased right hydronephrosis and perinephric stranding. Findings may represent obstructive uropathy. No hydroureter or obstructing radiodense calculi seen more distally. Left nonobstructing calculi measuring up to 6 mm. No left hydronephrosis. Normal caliber appendix in right lower quadrant. Approved by: Elodia Dumont M.D.,Ph.D. on 01/16/2024 at 2:34 ECG Data Interpretation: Normal sinus rhythm at 72 beats per minute. Normal GA, no ST T wave changes, no STEMI MDM Narrative Medical decision making narrative: Right lower quadrant abdominal pain. Abdomen is soft but she was tender in the right lower quadrant, no peritoneal signs. Patient saturations initially normal on room air, however they quickly dropped to 88% on room air and she was placed on supplemental nasal cannula. Patient denies chest pain or shortness of breath throughout this entire event. Laboratory work is significant for leukocytosis with WBC count 15.4, chronic anemia with hemoglobin 11.4, platelets 290. Creatinine slightly elevated at 1.58 (baseline 1.2-1.3), glucose 171, lactate 2.7. CT of the abdomen and pelvis shows what appears to be obstructive uropathy with slightly worsened right-sided hydronephrosis and perinephric stranding. I was able to confirm that we do have in-house Urology tomorrow with hospital grease refining supervisor. Patient given IV Rocephin for coverage. Macro review from previous UTI on 01/03 shows E coli with sensitivity to cephalosporins. Chest x-ray shows some pulmonary edema. Patient was still on 2 L supplemental nasal cannula. IV Lasix ordered. Plan to admit patient for further treatment. Added troponin, BNP, INR, however with no ischemic changes on EKG, no chest pain, I have extremely low suspicion for ACS. Discharge Plan Departure Patient Disposition: Admitted as Observation Clinical Impression: Urinary tract infection, Abdominal pain, Hydronephrosis
[2024-01-16] MEDS: MORPHINE 4 MG/ML INJ IV ×2 (01:43→23:13)
[2024-01-16 01:51] LABS: Add Manual Diff / Slide Review NO; Basophils Absolute Auto 400 /uL (0-100); Basophils Percent Auto 2.3 % (0-2); Eosinophils Absolute Auto 200 /uL (0-450); Eosinophils Percent Auto 1.5 % (2-4); Hematocrit 34.7 % (36-46); Hemoglobin 11.4 g/dL (12.0-16.0); Lymphocytes Absolute Auto 900 /uL (1100-4500); Lymphocytes Percent Auto 6.1 % (25-40); Mean Corpuscular Hemoglobin 26.5 PG (26-34); Mean Corpuscular Volume 80.5 fL (80-100); Monocytes Absolute Auto 500 /uL (0-900); Monocytes Percent Auto 3.3 % (3-14); Neutrophils Absolute Auto 13400 /uL (1500-7000); Neutrophils Percent Auto 86.8 % (50-75); Platelet Count 290 X10^3/uL (150-400); Red Blood Cell Count 4.31 X10^6/uL (4.0-5.2); Red Cell Distribution Width 15.6 % (11.6-14.8); White Blood Cell Count 15.4 X10^3/uL (4.5-11.0)
[2024-01-16 01:54] LABS: Alanine Aminotransferase 14 IU/L (<35); Albumin 3.8 g/dL (3.5-5.0); Albumin Globulin Ratio 1.1 (1.0-2.8); Alkaline Phosphatase 61 U/L (38-126); Aspartate Aminotransferase 16 IU/L (14-36); BUN Creatinine Ratio 20.9 (6-22); Bilirubin Total 0.4 mg/dL (0.2-1.3); Blood Urea Nitrogen 33 mg/dL (7-17); Calcium 9.2 mg/dL (8.4-10.2); Carbon Dioxide 21 mmol/L (22-32); Chloride 108 mmol/L (98-107); Estimated Glomerular Filt Rate 35 mL/min (>60); Globulin 3.6 g/dL (1.7-4.1); Glucose 171 mg/dL (80-110); HEMOLYSIS < 15 (0-50); Lipase 183 U/L (23-300); Magnesium 1.6 mg/dL (1.6-2.3); Potassium 4.7 mmol/L (3.4-5.1); Sodium 138 mmol/L (137-145); Total Protein 7.4 g/dL (6.3-8.2)
[2024-01-16 01:55] LABS: Lactate (Lactic Acid) 2.7 mmol/L (0.7-2.1)
[2024-01-16] MEDS: ONDANSETRON 4 MG/2 ML INJ IV ×3 (02:01→17:48)
--- NOTE | 2024-01-16 02:07 | PC.NURSE ---
pt's brief change, brief noted saturated with urine with a foul smell, purwick placed on patient
--- NOTE | 2024-01-16 02:21 | DI.RAD.S_ITS ---
PROCEDURE: XR CHEST 1V INDICATIONS: LOW O2, HX CHF TECHNIQUE: One view of the chest was acquired. COMPARISON: [facility], CR, XR CHEST 1V, 12/19/2023, 4:43. FINDINGS: Surgical changes and devices: TAPVR. Lungs and pleura: Diffuse interstitial pulmonary edema. No pleural effusions or pneumothorax. Mediastinum: Mediastinal contours appear normal. Heart size is normal. Bones and chest wall: No suspicious bony lesions. Overlying soft tissues appear unremarkable. IMPRESSION: Interstitial pulmonary edema. Comment: Preliminary interpretation provided by [facility]. Dictated by: Santi Kaplan M.D. on 01/16/2024 at 7:24 Approved by: Santi Kaplan M.D. on 01/16/2024 at 7:36
[2024-01-16] MEDS: FUROSEMIDE 40 MG/4 ML VIAL IV (02:32)
[2024-01-16 03:05] LABS: Appearance Urine UA CLOUDY; Bilirubin Urine UA NEGATIVE (NEGATIVE); Glucose Urine UA 3+ g/dL (Negative); Ketones Urine UA NEGATIVE (NEGATIVE); Leukocyte Esterase Urine UA 1+ (NEGATIVE); Nitrite Urine UA POSITIVE (Negative); Occult Blood Urine UA 3+ (Negative); Protein Urine UA 1+ (Negative); Urobilinogen Urine UA 0.2 E.U./dL (0.2)
[2024-01-16 03:08] LABS: Color Urine UA BROWN; Urine Volume 10mL (spun)
[2024-01-16 03:11] LABS: Bacteria Urine Many (>30); Culture Indicated Urine Specimen Cultured; RBC Urine >100/HPF (0-5/HPF); Squamous Epithelial Cell Urine 1-5 /HPF (0-5/HPF); Transitional Epi Cells Urine 1-5/HPF (0-5/HPF); WBC Urine 30-100/HPF (0-5/HPF)
[2024-01-16 03:14] LABS: Reflexed Lactate in 2 Hours Y
[2024-01-16] MEDS: HYDRALAZINE 20 MG/ML VIAL 10 MG IV (03:53)
[2024-01-16 03:56] LABS: Lactate 2HR (Lactic Acid Rflx) 1.9 mmol/L (0.7-2.1)
[2024-01-16] MEDS: cefTRIAXone 2,000 MG in SODIUM CHLORIDE 0.9% 100 ML 200 MG IV (04:10)
[2024-01-16 04:15] LABS: INR 1.5 (0.9-1.3); Prothrombin Time 17.1 SECONDS (9.4-12.5)
[2024-01-16 04:18] LABS: Creatine Kinase 42 U/L (30-135)
[2024-01-16 04:31] LABS: NT-proBNP (BNP-Adult 18+) 2280 pg/mL (<125)
--- NOTE | 2024-01-16 06:18 | P.HP_ITS ---
History of Present Illness History of Present Illness Date Patient Seen: 01/16/24 Chief complaint: R abd pain Narrative: 73 y/o with PMH of recurrent UTI and bilateral kidney stones with right hydronephrosis and CKD, presented to ED hours after she developed Rt groin pain and diagnosed with UTI. She was seen in the ED 10 days ago after she sustained GLF. She had UTI then, treated with cefdinir. In the ED short of breath with pulmonary edema requiring dose of Lasix iv that improved dyspnea. [facility] Medical History Acute kidney injury Appendicitis with perforation Vertigo Sedentary lifestyle Stage II pressure ulcer of sacral region (~02/2023) Hyperlipidemia Thyroid nodule Incontinence Breast screening Abnormal mammogram of left breast NSTEMI (non-ST elevated myocardial infarction) (09/2018) Recent heart attack Coronary artery disease Osteopenia (05/20/14) Knee osteoarthritis Hypertension (~2011) Diabetes mellitus (~2011) Rheumatoid arthritis Colon polyps (08/31/14) Surgical History History of bilateral knee replacement (2009) History of colonoscopy with polypectomy (08/31/14) History of left cataract surgery (03/23/15) History of right cataract surgery (04/06/15) Anesthesia History of knee replacement History of knee replacement Status post delivery (12/21/78) Family History Brother Drowning Father Heart disease Mother Diabetes mellitus Sister Bone cancer Sister Bone cancer Social History marital status: household members: family and children Smoking Status: Never smoker alcohol intake: current substance use type: does not use Meds Home Medications and Allergies Home Medications Medication Instructions Recorded Confirmed Type Parking Permit... #1 ea 09/08/20 01/01/24 Rx pen needle, diabetic 29 gauge x #100 ea 03/09/22 01/01/24 Rx 1/2 (Comfort EZ Pen [place]) insulin lispro 100 unit/mL 1 sliding scale dose SUBCUT 04/24/23 01/01/24 Rx subcutaneous pen (Humalog KwikPen USEASDIRECTD #15 mL (U-100) Insulin) atorvastatin 80 mg tablet (Lipitor) 80 mg PO QPM 06/02/23 01/01/24 History apixaban 5 mg tablet (Eliquis) 5 mg PO BID #180 tabs 10/19/23 01/01/24 Rx blood sugar diagnostic (True #100 strips 10/30/23 01/01/24 Rx Metrix Glucose Test Strip) clopidogrel 75 mg tablet 75 mg PO QAM #90 tabs 11/07/23 01/01/24 Rx diltiazem HCl 120 mg 240 mg (2 x 120 mg) PO BID #180 11/07/23 01/01/24 Rx capsule,extended release 12 hr caps metformin 500 mg tablet 1,000 mg (2 x 500 mg) PO BID #360 11/07/23 01/01/24 Rx tabs metoprolol succinate 50 mg 50 mg PO DAILY #90 tabs 11/07/23 01/01/24 Rx tablet,extended release 24 hr nitroglycerin 0.4 mg sublingual 0.4 mg sublingual Q5-15M PRN chest 11/07/23 01/01/24 Rx tablet pain #90 tabs empagliflozin 25 mg tablet 25 mg PO DAILY 11/10/23 01/01/24 History (Jardiance) insulin lispro 100 unit/mL See Rx Instructions .Route .COMPLEX 12/19/23 01/01/24 History subcutaneous pen (Humalog KwikPen (U-100) Insulin) amiodarone 200 mg tablet 200 mg PO BID #180 tabs 12/25/23 01/01/24 Rx nystatin 100,000 unit/gram topical 1 applic topical TID #60 grams 01/01/24 01/01/24 Rx cream cefdinir 300 mg capsule 300 mg PO BID #10 caps 01/04/24 Rx insulin glargine 100 unit/mL (3 40 unit (0.4 mL) SUBCUT QAM #3 mL 01/07/24 Rx mL) subcutaneous pen (Lantus Solostar U-100 Insulin) fluconazole 200 mg tablet 200 mg PO DAILY intertrigo Abby 01/10/24 Rx infection #14 tabs Allergies Allergy/AdvReac Type Severity Reaction Status Date / Time Sulfa (Sulfonamide Allergy Mild RASH Verified 01/01/24 10:34 Antibiotics) Review of Systems Review of Systems Narrative: w/o fever or chills Cardiovascular Comments: short of breath in bed - sleeps in recliner - othopnea swollen legs w/o chest pain or palpitations exertional dyspnea Respiratory Comments: w/o cough Genitourinary Comments: RLQ pain Without dysuria Exam Vital Signs (past 8 hours): - 01/16/24 01:27 01/16/24 01:27 01/16/24 01:30 Temperature Pulse Rate 69 67 Respiratory Rate Blood Pressure 214/94 H Pulse Oximetry 96 96 Oxygen Delivery Method Room Air Oxygen Flow Rate 01/16/24 01:31 01/16/24 01:31 01/16/24 01:31 Temperature 99.3 F Pulse Rate 68 67 Respiratory Rate 20 20 Blood Pressure 214/94 H 193/82 H Pulse Oximetry 97 96 Oxygen Delivery Method Room Air Room Air Oxygen Flow Rate 01/16/24 02:00 01/16/24 02:01 01/16/24 02:07 Temperature Pulse Rate 77 73 Respiratory Rate Blood Pressure 201/91 H Pulse Oximetry 90 L 91 Oxygen Delivery Method Oxygen Flow Rate 01/16/24 02:07 01/16/24 02:30 01/16/24 02:30 Temperature Pulse Rate 70 Respiratory Rate 18 Blood Pressure 193/82 H 218/93 H Pulse Oximetry 96 Oxygen Delivery Method Oxygen Flow Rate 01/16/24 03:00 01/16/24 03:01 01/16/24 03:01 Temperature Pulse Rate 69 69 Respiratory Rate Blood Pressure 199/81 H Pulse Oximetry 88 L 90 L Oxygen Delivery Method Room Air Oxygen Flow Rate 01/16/24 03:30 01/16/24 03:31 01/16/24 03:31 Temperature Pulse Rate 67 66 Respiratory Rate Blood Pressure 205/82 H Pulse Oximetry 95 95 Oxygen Delivery Method Oxygen Flow Rate 01/16/24 03:53 01/16/24 03:59 01/16/24 03:59 Temperature Pulse Rate 66 65 Respiratory Rate Blood Pressure 205/82 H 202/83 H Pulse Oximetry 95 Oxygen Delivery Method Nasal Cannula Oxygen Flow Rate 2 01/16/24 04:05 01/16/24 04:11 01/16/24 04:11 Temperature Pulse Rate 67 68 Respiratory Rate 21 Blood Pressure 181/77 H Pulse Oximetry 96 96 Oxygen Delivery Method Nasal Cannula Nasal Cannula Oxygen Flow Rate 2 2 01/16/24 04:36 01/16/24 05:20 Temperature Pulse Rate 68 Respiratory Rate Blood Pressure 181/77 H Pulse Oximetry Oxygen Delivery Method Nasal Cannula Oxygen Flow Rate Oxygen Delivery Method Nasal Cannula Oxygen Flow Rate 2 Const Other: Laying in bed in no distress Resp Other: b/l rales Cardio Other: KIARA irregularly irregular GI Other: tender RLQ Other: see above without hematuria Extrem Other: 2 + b/l lower leg edema Psych Other: appropriate mood Objective Labs 01/16/24 01:35 01/16/24 01:35 Labs: Laboratory Results - last 24 hr 01/16/24 01/16/24 01/16/24 01:35 02:56 03:40 WBC 15.4 H RBC 4.31 Hgb 11.4 L Hct 34.7 L MCV 80.5 MCH 26.5 MCHC 33.0 RDW 15.6 H Plt Count 290 Neut % (Auto) 86.8 H Lymph % (Auto) 6.1 L [place] % (Auto) 3.3 Eos % (Auto) 1.5 L Baso % (Auto) 2.3 H Neut # (Auto) 93645 H Lymph # (Auto) 900 L [place] # (Auto) 500 Eos # (Auto) 200 Baso # (Auto) 400 H PT 17.1 H INR 1.5 H Sodium 138 Potassium 4.7 Chloride 108 H Carbon Dioxide 21 L BUN 33 H Creatinine 1.58 H Estimated GFR 35 L BUN/Creatinine Ratio 20.9 Glucose 171 H Lactate 2.7 H 1.9 Calcium 9.2 Magnesium 1.6 Total Bilirubin 0.4 AST 16 ALT 14 Alkaline Phosphatase 61 Total Creatine Kinase 42 Troponin I 0.030 NT-Pro-B Natriuret Pep 2280 H Total Protein 7.4 Albumin 3.8 Globulin 3.6 Albumin/Globulin Ratio 1.1 Lipase 183 Urine Color Brown Urine Appearance Cloudy Urine pH 5.0 Ur Specific [place] 1.020 Urine Protein 1+ H Urine Glucose (UA) 3+ H Urine Ketones Negative Urine Occult Blood 3+ H Urine Nitrate Positive H Urine Bilirubin Negative Urine Urobilinogen 0.2 Ur Leukocyte Esterase 1+ H Urine RBC >100/hpf H Urine WBC 30-100/hpf H Ur Squamous Epith Cells 1-5 /hpf Ur Transition Epith Cell 1-5/hpf Urine Bacteria Many (>30) H Ur Culture Indicated? Specimen cultured Vol Urine Centrifuged 10ml (spun) Assessment & Plan Assessment and plan (1) Acute on chronic diastolic CHF (congestive heart failure): Status: Acute (2) Bilateral kidney stones: Status: Acute (3) Pyelonephritis of right kidney: Status: Acute (4) Coronary artery disease: Qualifiers: Coronary Disease-Associated Artery/Lesion type: unspecified vessel or lesion type [place] vs. transplanted heart: [place] heart Associated angina: a ngina presence unspecified Qualified Code(s): I25.10 - Atherosclerotic heart disease of [place] coronary artery without angina pectoris Status: Chronic (5) Essential hypertension: Status: Chronic (6) Type 2 diabetes mellitus: Qualifiers: Diabetes mellitus intermediate card tender insulin use: with intermediate card tender use Diabetes mellitus complication status: without complication Qualified Code(s): E11.9 - Type 2 diabetes mellitus without complications; Z79.4 - correction (current) use of insulin Status: Acute (7) Atrial fibrillation: Problem details: Rate controlled Qualifiers: Atrial fibrillation type: unspecified chronic Qualified Code(s): I48.20 - Chronic atrial fibrillation, unspecified Status: Acute Assessment & Plan narrative: 1. Acute Rt Pyelonephritis / Kidney stones with mild hydronephrosis - urology will consult today - Claudio 2. KADE / CKD - monitored renal function, baseline CKD - not a candidate for IVFs due to CHF 3. Pulmonary Edema / MV stenosis/regurgitation, Hx of TAVR / PAF / CAD / HTN - resolved dyspnea at rest in the ED with dose of Lasix - sleeps in recliner, chronically swollen legs, chronic orthopnea and exertional dyspnea - follows with cardiology, recently seen - continue CCB, BB, Eliquis, Plavix, statin - not on Lasix at home 4. DM - Lantus, SS, CCD, Jardiance - Metrformin held for KADE
[2024-01-16 07:10] LABS: Add Manual Diff / Slide Review NO; Basophils Absolute Auto 0 /uL (0-100); Basophils Percent Auto 0.2 % (0-2); Eosinophils Absolute Auto 100 /uL (0-450); Eosinophils Percent Auto 0.4 % (2-4); Hematocrit 37.3 % (36-46); Hemoglobin 12.1 g/dL (12.0-16.0); Lymphocytes Absolute Auto 900 /uL (1100-4500); Lymphocytes Percent Auto 4.6 % (25-40); Mean Corpuscular HGB Conc 32.4 % (30-36); Mean Corpuscular Hemoglobin 26.2 PG (26-34); Mean Corpuscular Volume 80.7 fL (80-100); Monocytes Absolute Auto 400 /uL (0-900); Monocytes Percent Auto 2.2 % (3-14); Neutrophils Absolute Auto 18300 /uL (1500-7000); Neutrophils Percent Auto 92.6 % (50-75); Platelet Count 312 X10^3/uL (150-400); Red Blood Cell Count 4.62 X10^6/uL (4.0-5.2); White Blood Cell Count 19.8 X10^3/uL (4.5-11.0)
[2024-01-16 07:26] LABS: BUN Creatinine Ratio 20.8 (6-22); Blood Urea Nitrogen 37 mg/dL (7-17); Calcium 9.1 mg/dL (8.4-10.2); Carbon Dioxide 23 mmol/L (22-32); Chloride 106 mmol/L (98-107); Estimated Glomerular Filt Rate 30 mL/min (>60); Glucose 204 mg/dL (80-110); HEMOLYSIS < 15 (0-50); Potassium 4.8 mmol/L (3.4-5.1); Sodium 137 mmol/L (137-145)
--- NOTE | 2024-01-16 09:15 | PM.DS.1 ---
History of Present Illness History of Present Illness Date Patient Seen: 01/16/24 Time Patient Seen: 09:00 Chief complaint: R abd pain Narrative: Per admitting provider, 73 y/o with PMH of recurrent UTI and bilateral kidney stones with right hydronephrosis and CKD, presented to ED hours after she developed Rt groin pain and diagnosed with UTI. She was seen in the ED 10 days ago after she sustained GLF. She had UTI then, treated with cefdinir. In the ED short of breath with pulmonary edema requiring dose of Lasix iv that improved dyspnea. Discharge Providers Provider Date of admission: 01/16/24 04:14 Discharge Date: 01/16/24 Primary care physician: Chino Ruggiero MD Consults: 01/16/24 08:07 Consult to Urology Routine Comment: Consulting Provider: Manuel Canchola Reason for consultation: R obstructive uropathy, pyelo / sepsis Discharge provider: Dave Lua DO Exam Vital Signs (past 8 hours): - 01/16/24 01:27 01/16/24 01:27 01/16/24 01:30 Temperature Pulse Rate 69 67 Respiratory Rate Blood Pressure 214/94 H Pulse Oximetry 96 96 Oxygen Delivery Method Room Air Oxygen Flow Rate 01/16/24 01:31 01/16/24 01:31 01/16/24 01:31 Temperature 99.3 F Pulse Rate 68 67 Respiratory Rate 20 20 Blood Pressure 214/94 H 193/82 H Pulse Oximetry 97 96 Oxygen Delivery Method Room Air Room Air Oxygen Flow Rate 01/16/24 02:00 01/16/24 02:01 01/16/24 02:07 Temperature Pulse Rate 77 73 Respiratory Rate Blood Pressure 201/91 H Pulse Oximetry 90 L 91 Oxygen Delivery Method Oxygen Flow Rate 01/16/24 02:07 01/16/24 02:30 01/16/24 02:30 Temperature Pulse Rate 70 Respiratory Rate 18 Blood Pressure 193/82 H 218/93 H Pulse Oximetry 96 Oxygen Delivery Method Oxygen Flow Rate 01/16/24 03:00 01/16/24 03:01 01/16/24 03:01 Temperature Pulse Rate 69 69 Respiratory Rate Blood Pressure 199/81 H Pulse Oximetry 88 L 90 L Oxygen Delivery Method Room Air Oxygen Flow Rate 01/16/24 03:30 01/16/24 03:31 01/16/24 03:31 Temperature Pulse Rate 67 66 Respiratory Rate Blood Pressure 205/82 H Pulse Oximetry 95 95 Oxygen Delivery Method Oxygen Flow Rate 01/16/24 03:53 01/16/24 03:59 01/16/24 03:59 Temperature Pulse Rate 66 65 Respiratory Rate Blood Pressure 205/82 H 202/83 H Pulse Oximetry 95 Oxygen Delivery Method Nasal Cannula Oxygen Flow Rate 2 01/16/24 04:05 01/16/24 04:11 01/16/24 04:11 Temperature Pulse Rate 67 68 Respiratory Rate 21 Blood Pressure 181/77 H Pulse Oximetry 96 96 Oxygen Delivery Method Nasal Cannula Nasal Cannula Oxygen Flow Rate 2 2 01/16/24 04:30 01/16/24 04:36 01/16/24 05:20 Temperature 96.6 F L Pulse Rate 67 68 Respiratory Rate 18 Blood Pressure 162/55 H 181/77 H Pulse Oximetry 95 Oxygen Delivery Method Nasal Cannula Oxygen Flow Rate 1 01/16/24 09:04 Temperature 97.2 F L Pulse Rate 73 Respiratory Rate 16 Blood Pressure 153/67 H Pulse Oximetry 95 Oxygen Delivery Method Oxygen Flow Rate Oxygen Delivery Method Nasal Cannula Oxygen Flow Rate 1 Objective Labs 01/16/24 07:02 01/16/24 07:02 Labs: Laboratory Results - last 24 hr 01/16/24 01/16/24 01/16/24 01:35 02:56 03:40 WBC 15.4 H RBC 4.31 Hgb 11.4 L Hct 34.7 L MCV 80.5 MCH 26.5 MCHC 33.0 RDW 15.6 H Plt Count 290 Neut % (Auto) 86.8 H Lymph % (Auto) 6.1 L [place] % (Auto) 3.3 Eos % (Auto) 1.5 L Baso % (Auto) 2.3 H Neut # (Auto) 16106 H Lymph # (Auto) 900 L [place] # (Auto) 500 Eos # (Auto) 200 Baso # (Auto) 400 H PT 17.1 H INR 1.5 H Sodium 138 Potassium 4.7 Chloride 108 H Carbon Dioxide 21 L BUN 33 H Creatinine 1.58 H Estimated GFR 35 L BUN/Creatinine Ratio 20.9 Glucose 171 H Lactate 2.7 H 1.9 Calcium 9.2 Magnesium 1.6 Total Bilirubin 0.4 AST 16 ALT 14 Alkaline Phosphatase 61 Total Creatine Kinase 42 Troponin I 0.030 NT-Pro-B Natriuret Pep 2280 H Total Protein 7.4 Albumin 3.8 Globulin 3.6 Albumin/Globulin Ratio 1.1 Lipase 183 Urine Color Brown Urine Appearance Cloudy Urine pH 5.0 Ur Specific [place] 1.020 Urine Protein 1+ H Urine Glucose (UA) 3+ H Urine Ketones Negative Urine Occult Blood 3+ H Urine Nitrate Positive H Urine Bilirubin Negative Urine Urobilinogen 0.2 Ur Leukocyte Esterase 1+ H Urine RBC >100/hpf H Urine WBC 30-100/hpf H Ur Squamous Epith Cells 1-5 /hpf Ur Transition Epith Cell 1-5/hpf Urine Bacteria Many (>30) H Ur Culture Indicated? Specimen cultured Vol Urine Centrifuged 10ml (spun) 01/16/24 07:02 WBC 19.8 H RBC 4.62 Hgb 12.1 Hct 37.3 MCV 80.7 MCH 26.2 MCHC 32.4 RDW 16.0 H Plt Count 312 Neut % (Auto) 92.6 H Lymph % (Auto) 4.6 L [place] % (Auto) 2.2 L Eos % (Auto) 0.4 L Baso % (Auto) 0.2 Neut # (Auto) 55257 H Lymph # (Auto) 900 L [place] # (Auto) 400 Eos # (Auto) 100 Baso # (Auto) 0 PT INR Sodium 137 Potassium 4.8 Chloride 106 Carbon Dioxide 23 BUN 37 H Creatinine 1.78 H Estimated GFR 30 L BUN/Creatinine Ratio 20.8 Glucose 204 H Lactate Calcium 9.1 Magnesium Total Bilirubin AST ALT Alkaline Phosphatase Total Creatine Kinase Troponin I NT-Pro-B Natriuret Pep Total Protein Albumin Globulin Albumin/Globulin Ratio Lipase Urine Color Urine Appearance Urine pH Ur Specific [place] Urine Protein Urine Glucose (UA) Urine Ketones Urine Occult Blood Urine Nitrate Urine Bilirubin Urine Urobilinogen Ur Leukocyte Esterase Urine RBC Urine WBC Ur Squamous Epith Cells Ur Transition Epith Cell Urine Bacteria Ur Culture Indicated? Vol Urine Centrifuged [facility] Medical History Acute kidney injury Appendicitis with perforation Vertigo Sedentary lifestyle Stage II pressure ulcer of sacral region (~02/2023) Hyperlipidemia Thyroid nodule Incontinence Breast screening Abnormal mammogram of left breast NSTEMI (non-ST elevated myocardial infarction) (09/2018) Recent heart attack Coronary artery disease Osteopenia (05/20/14) Knee osteoarthritis Hypertension (~2011) Diabetes mellitus (~2011) Rheumatoid arthritis Colon polyps (08/31/14) Surgical History History of bilateral knee replacement (2009) History of colonoscopy with polypectomy (08/31/14) History of left cataract surgery (03/23/15) History of right cataract surgery (04/06/15) Anesthesia History of knee replacement History of knee replacement Status post delivery (12/21/78) Family History Brother Drowning Father Heart disease Mother Diabetes mellitus Sister Bone cancer Sister Bone cancer Social History marital status: household members: family and children Smoking Status: Never smoker alcohol intake: current substance use type: does not use Discharge Plan Discharge Plan Patient Disposition: Home Discharge orders & Medications Prescriptions: No Action (DME) pen needle, diabetic [Comfort EZ Pen [place]] 29 gauge x 1/2 needle See Rx Instructions .ROUTE .MEDSUPPLY Qty: 100 3RF Rx Instructions: use to check blood glucose 3x per day (DME) True Metrix Glucose Test Strip Strip See Rx Instructions .ROUTE .COMPLEX Qty: 100 3RF Dose Instruction: USE TO TEST BLOOD SUGAR DAILY Rx Instructions: USE TO TEST BLOOD SUGAR DAILY insulin glargine [Lantus Solostar U-100 Insulin] 100 unit/mL (3 mL) insulin pen 40 unit SUBCUT QAM Qty: 3 3RF Patient Comments: pt states that she takes Lantus in the morning instead of nighttime. fluconazole 200 mg tablet 200 mg PO DAILY Qty: 14 0RF Rx Instructions: stop amiodarone while taking fluconazole (DME) Parking Permit... See Rx Instructions .Route .MEDSUPPLY Qty: 1 0RF Rx Instructions: Patient meets criteria for permanent parking placard. insulin lispro [Humalog KwikPen Insulin] 100 unit/mL insulin pen 1 sliding scale dose SUBCUT USEASDIRECTD Qty: 15 3RF Rx Instructions: slide scale 2-14 units SQ TID Eliquis 5 mg tablet 5 mg PO BID Qty: 180 2RF metoprolol succinate 50 mg tablet extended release 24 hr 50 mg PO DAILY Qty: 90 3RF diltiazem HCl 120 mg capsule,extended release 12 hr 240 mg PO BID Qty: 180 3RF clopidogrel 75 mg tablet 75 mg PO QAM Qty: 90 3RF metformin 500 mg tablet 1,000 mg PO BID Qty: 360 3RF Rx Instructions: TAKE TWO TABLETS BY MOUTH TWICE DAILY nitroglycerin 0.4 mg tablet, sublingual 0.4 mg SL Q5-15M PRN (Reason: chest pain) Qty: 90 11RF Patient Comments: patient has prescription but has not taken yet Rx Instructions: until response; do not exceed 3 doses per episode atorvastatin [Lipitor] 80 mg tablet 80 mg PO QPM insulin lispro [Humalog KwikPen Insulin] 100 unit/mL insulin pen See Rx Instructions .ROUTE .COMPLEX Patient Comments: [NO ORIGINAL SIG] Rx Instructions: sliding scale cefdinir 300 mg capsule 300 mg PO BID Qty: 10 0RF nystatin 100,000 unit/gram cream 1 applic topical TID Follow up/Referrals: Chino Ruggiero MD [Primary Care Provider] - Visit Report/Discharge Packet Stand Alone Forms: Patient Portal/API, Stroke Signs & Symptoms Discharge Data Primary Care Provider: Chino Ruggiero Attending Provider: Thien [place] Admcarlos Date/Time: 01/16/24 04:14
[2024-01-16] MEDS: ACETAMINOPHEN 325 MG TABLET 650 MG PO ×2 (09:45→18:23)
[2024-01-16] MEDS: CLOPIDOGREL 75 MG TABLET PO (09:46)
[2024-01-16] MEDS: METOPROLOL ER 50 MG TABLET PO (09:46)
[2024-01-16] MEDS: dilTIAZem CD 120 MG CAP 240 MG PO ×2 (09:47→20:55)
[2024-01-16] MEDS: INSULIN LISPRO 100 UNIT/ML 3ML VIAL SUBCUT ×3 (09:48→16:46)
[2024-01-16] MEDS: INSULIN GLARGINE 100 UNIT/ML 3ML PEN 40 UNIT SUBCUT (09:49)
[2024-01-16] MEDS: ATORVASTATIN 20 MG TABLET 80 MG PO (18:24)
--- NOTE | 2024-01-16 18:50 | PM.HP.1 ---
History of Present Illness History of Present Illness Date Patient Seen: 01/16/24 Time Patient Seen: 13:00 Chief complaint: R abd pain Narrative: Per overnight provider, 73 y/o with PMH of recurrent UTI and bilateral kidney stones with right hydronephrosis and CKD, presented to ED hours after she developed Rt groin pain and diagnosed with UTI. She was seen in the ED 10 days ago after she sustained GLF. She had UTI then, treated with cefdinir. In the ED short of breath with pulmonary edema requiring dose of Lasix iv that improved dyspnea. She was admitted overnight, with CT showing possible R obstructive hydronephrosis in the setting of sepsis, urology was consulted as soon as possible. In discussion with urology, thought that mild change in hydronephrosis was more likely related to inflammation rather than an acute obstructive process and no stenting was recommended at this time. Recommended continued antibiotiocs for pyelonephritis. She still feels ill, with improved nausea but little appetitie this afternoon. Still having some RLQ pain. [facility] Medical History Acute kidney injury Appendicitis with perforation Vertigo Sedentary lifestyle Stage II pressure ulcer of sacral region (~02/2023) Hyperlipidemia Thyroid nodule Incontinence Breast screening Abnormal mammogram of left breast NSTEMI (non-ST elevated myocardial infarction) (09/2018) Recent heart attack Coronary artery disease Osteopenia (05/20/14) Knee osteoarthritis Hypertension (~2011) Diabetes mellitus (~2011) Rheumatoid arthritis Colon polyps (08/31/14) Surgical History History of bilateral knee replacement (2009) History of colonoscopy with polypectomy (08/31/14) History of left cataract surgery (03/23/15) History of right cataract surgery (04/06/15) Anesthesia History of knee replacement History of knee replacement Status post delivery (12/21/78) Family History Brother Drowning Father Heart disease Mother Diabetes mellitus Sister Bone cancer Sister Bone cancer Social History marital status: household members: family and children Smoking Status: Never smoker alcohol intake: current substance use type: does not use Meds Home Medications and Allergies Home Medications Medication Instructions Recorded Confirmed Type Parking Permit... #1 ea 09/08/20 01/16/24 Rx pen needle, diabetic 29 gauge x #100 ea 03/09/22 01/16/24 Rx 1/2 (Comfort EZ Pen [place]) insulin lispro 100 unit/mL 1 sliding scale dose SUBCUT 04/24/23 01/16/24 Rx subcutaneous pen (Humalog KwikPen USEASDIRECTD #15 mL (U-100) Insulin) atorvastatin 80 mg tablet (Lipitor) 80 mg PO QPM 06/02/23 01/16/24 History apixaban 5 mg tablet (Eliquis) 5 mg PO BID #180 tabs 10/19/23 01/16/24 Rx blood sugar diagnostic (True #100 strips 10/30/23 01/16/24 Rx Metrix Glucose Test Strip) clopidogrel 75 mg tablet 75 mg PO QAM #90 tabs 11/07/23 01/16/24 Rx diltiazem HCl 120 mg 240 mg (2 x 120 mg) PO BID #180 11/07/23 01/16/24 Rx capsule,extended release 12 hr caps metformin 500 mg tablet 1,000 mg (2 x 500 mg) PO BID #360 11/07/23 01/16/24 Rx tabs metoprolol succinate 50 mg 50 mg PO DAILY #90 tabs 11/07/23 01/16/24 Rx tablet,extended release 24 hr nitroglycerin 0.4 mg sublingual 0.4 mg sublingual Q5-15M PRN chest 11/07/23 01/16/24 Rx tablet pain #90 tabs insulin lispro 100 unit/mL See Rx Instructions .Route .COMPLEX 12/19/23 01/16/24 History subcutaneous pen (Humalog KwikPen (U-100) Insulin) cefdinir 300 mg capsule 300 mg PO BID #10 caps 01/04/24 01/16/24 Rx insulin glargine 100 unit/mL (3 40 unit (0.4 mL) SUBCUT QAM #3 mL 01/07/24 01/16/24 Rx mL) subcutaneous pen (Lantus Solostar U-100 Insulin) fluconazole 200 mg tablet 200 mg PO DAILY intertrigo Abby 01/10/24 01/16/24 Rx infection #14 tabs nystatin 100,000 unit/gram topical 1 applic topical TID rash 01/16/24 01/16/24 History cream Allergies Allergy/AdvReac Type Severity Reaction Status Date / Time Sulfa (Sulfonamide Allergy Mild RASH Verified 01/01/24 10:34 Antibiotics) Review of Systems Review of Systems Narrative: All other systems reviewed with the patient and are negative unless otherwise stated. Exam Vital Signs (past 8 hours): Oxygen Delivery Method Nasal Cannula Oxygen Flow Rate 1 Narrative Exam Narrative: Gen: No acute distress, mildly ill appearing female CV: RRR no m/r/g Pulm: CTA b/l Abd: S, tender RLQ, mild, nondistended. Ext: trace edema b/l LE Objective Labs 01/16/24 07:02 01/16/24 07:02 Labs: Laboratory Results - last 24 hr 01/16/24 01/16/24 01/16/24 01:35 02:56 03:40 WBC 15.4 H RBC 4.31 Hgb 11.4 L Hct 34.7 L MCV 80.5 MCH 26.5 MCHC 33.0 RDW 15.6 H Plt Count 290 Neut % (Auto) 86.8 H Lymph % (Auto) 6.1 L [place] % (Auto) 3.3 Eos % (Auto) 1.5 L Baso % (Auto) 2.3 H Neut # (Auto) 65877 H Lymph # (Auto) 900 L [place] # (Auto) 500 Eos # (Auto) 200 Baso # (Auto) 400 H PT 17.1 H INR 1.5 H Sodium 138 Potassium 4.7 Chloride 108 H Carbon Dioxide 21 L BUN 33 H Creatinine 1.58 H Estimated GFR 35 L BUN/Creatinine Ratio 20.9 Glucose 171 H Lactate 2.7 H 1.9 Calcium 9.2 Magnesium 1.6 Total Bilirubin 0.4 AST 16 ALT 14 Alkaline Phosphatase 61 Total Creatine Kinase 42 Troponin I 0.030 NT-Pro-B Natriuret Pep 2280 H Total Protein 7.4 Albumin 3.8 Globulin 3.6 Albumin/Globulin Ratio 1.1 Lipase 183 Urine Color Brown Urine Appearance Cloudy Urine pH 5.0 Ur Specific [place] 1.020 Urine Protein 1+ H Urine Glucose (UA) 3+ H Urine Ketones Negative Urine Occult Blood 3+ H Urine Nitrate Positive H Urine Bilirubin Negative Urine Urobilinogen 0.2 Ur Leukocyte Esterase 1+ H Urine RBC >100/hpf H Urine WBC 30-100/hpf H Ur Squamous Epith Cells 1-5 /hpf Ur Transition Epith Cell 1-5/hpf Urine Bacteria Many (>30) H Ur Culture Indicated? Specimen cultured Vol Urine Centrifuged 10ml (spun) 01/16/24 07:02 WBC 19.8 H RBC 4.62 Hgb 12.1 Hct 37.3 MCV 80.7 MCH 26.2 MCHC 32.4 RDW 16.0 H Plt Count 312 Neut % (Auto) 92.6 H Lymph % (Auto) 4.6 L [place] % (Auto) 2.2 L Eos % (Auto) 0.4 L Baso % (Auto) 0.2 Neut # (Auto) 20643 H Lymph # (Auto) 900 L [place] # (Auto) 400 Eos # (Auto) 100 Baso # (Auto) 0 PT INR Sodium 137 Potassium 4.8 Chloride 106 Carbon Dioxide 23 BUN 37 H Creatinine 1.78 H Estimated GFR 30 L BUN/Creatinine Ratio 20.8 Glucose 204 H Lactate Calcium 9.1 Magnesium Total Bilirubin AST ALT Alkaline Phosphatase Total Creatine Kinase Troponin I NT-Pro-B Natriuret Pep Total Protein Albumin Globulin Albumin/Globulin Ratio Lipase Urine Color Urine Appearance Urine pH Ur Specific [place] Urine Protein Urine Glucose (UA) Urine Ketones Urine Occult Blood Urine Nitrate Urine Bilirubin Urine Urobilinogen Ur Leukocyte Esterase Urine RBC Urine WBC Ur Squamous Epith Cells Ur Transition Epith Cell Urine Bacteria Ur Culture Indicated? Vol Urine Centrifuged Assessment & Plan Assessment & Plan narrative: 1. Sepsis with KADE, acute respiratory failure with hypoxia secondary to R pyelonephritis and nephrolithiasis. - continue ceftriaxone 2g q 24 hours, presume bacteremia at this point given sepsis. - follow up urine and blood cultures. - discussed with urology, no stent needed at this time. Will continue to monitor response to antibiotics. Consider repeat imaging if not improving clinically. - Cr to 1.78 from 1.2 about a month ago. - tylenol, oxycodone, morphine ordered for as needed pain medications from pyelonephritis. 2. Atrial fibrillation, chronic, present on admission - continue home apixaban, diltiazem, and metoprolol. 3. Recent NSTEMI, LAD stent placement (carrie Ochoa), CAD, with history of TAVR - continue plavix and statin 4. Acute on chronic HFpEF. -echo on 11/11/23 with EF 65-70%, mild LVH, progressive mod-severe MS, mild-mod AR, normal bioprosthetic aortic valve -hold jardiance due to KADE -diuresed initially, will hold additional diuresis for now, continue as needed. 5. Type 2 Diabetes on insulin, stable. -continue home lantus 40 units daily -hold metformin due to KADE -ordered for insulin sliding scale 6. Hypertension, stable/ -continue above medications. Code: Full, surrogate is patient's daughter DVT: on apixaban I have utilized all available immediate resources to obtain, update, or review the patient's current medications. Dispo: patient admitted under inpatient status. Unclear if will be able to discharge home or possible SNF, will have PT/OT evaluations if needed once more stable from sepsis. Additional history obtained via discussions with the ER provider and overnight provider. These discussions contributed to the creation of the above assessment and plan. I have reviewed patient's presenting documentation, labs, and imaging personally.
[2024-01-16] MEDS: APIXABAN 5 MG TABLET PO (20:55)
[2024-01-17] VITALS (8 sets, daily range): BP systolic 101–136; BP diastolic 43–63; PULSE 47–60; RESP 16–18; TEMP 36–36.8; O2SAT 93–98
[2024-01-17] MEDS: cefTRIAXone 2,000 MG in SODIUM CHLORIDE 0.9% 100 ML 200 MG IV (03:19)
[2024-01-17 05:21] LABS: Add Manual Diff / Slide Review NO; Basophils Absolute Auto 200 /uL (0-100); Basophils Percent Auto 0.8 % (0-2); Eosinophils Absolute Auto 100 /uL (0-450); Eosinophils Percent Auto 0.4 % (2-4); Hematocrit 35.2 % (36-46); Hemoglobin 11.5 g/dL (12.0-16.0); Lymphocytes Absolute Auto 1400 /uL (1100-4500); Lymphocytes Percent Auto 6.1 % (25-40); Mean Corpuscular HGB Conc 32.6 % (30-36); Mean Corpuscular Volume 79.8 fL (80-100); Monocytes Absolute Auto 1400 /uL (0-900); Monocytes Percent Auto 5.9 % (3-14); Neutrophils Absolute Auto 19800 /uL (1500-7000); Neutrophils Percent Auto 86.8 % (50-75); Platelet Count 293 X10^3/uL (150-400); Red Blood Cell Count 4.41 X10^6/uL (4.0-5.2); Red Cell Distribution Width 15.7 % (11.6-14.8); White Blood Cell Count 22.8 X10^3/uL (4.5-11.0)
[2024-01-17 05:24] LABS: Alanine Aminotransferase 11 IU/L (<35); Albumin 3.8 g/dL (3.5-5.0); Alkaline Phosphatase 63 U/L (38-126); Aspartate Aminotransferase 17 IU/L (14-36); BUN Creatinine Ratio 19.3 (6-22); Bilirubin Total 0.5 mg/dL (0.2-1.3); Blood Urea Nitrogen 37 mg/dL (7-17); Calcium 9.1 mg/dL (8.4-10.2); Carbon Dioxide 27 mmol/L (22-32); Chloride 103 mmol/L (98-107); Estimated Glomerular Filt Rate 28 mL/min (>60); Glucose 143 mg/dL (80-110); HEMOLYSIS < 15 (0-50); Magnesium 1.6 mg/dL (1.6-2.3); Potassium 4.3 mmol/L (3.4-5.1); Sodium 135 mmol/L (137-145); Total Protein 7.8 g/dL (6.3-8.2)
[2024-01-17] MEDS: CLOPIDOGREL 75 MG TABLET PO (08:46)
[2024-01-17] MEDS: dilTIAZem CD 120 MG CAP 240 MG PO ×2 (08:46→21:39)
[2024-01-17] MEDS: APIXABAN 5 MG TABLET PO ×2 (08:46→21:39)
[2024-01-17] MEDS: METOPROLOL ER 50 MG TABLET PO (08:46)
[2024-01-17] MEDS: INSULIN LISPRO 100 UNIT/ML 3ML VIAL SUBCUT ×4 (08:48→21:41)
[2024-01-17] MEDS: INSULIN GLARGINE 100 UNIT/ML 3ML PEN 40 UNIT SUBCUT (08:51)
[2024-01-17] MEDS: MAGNESIUM CHLORIDE 64 MG TABLET 128 MG PO (11:02)
--- NOTE | 2024-01-17 13:41 | CM.DPC ---
DCP Cont. Reviewed EMR and team rounds for status updates. Plan is to continue IV ABO's, possibly ready for d/c in 2-more days. This SHOE TURNER plans to send a referral to our community [facility] for outpatient support and resources due to the february EMS calls and interventions made to the home. Will continue to monitor pt's progress and speak with her about OP resources and supports available to prevent multiple readmissions, if medically possible.
[2024-01-17] MEDS: ATORVASTATIN 20 MG TABLET 80 MG PO (17:06)
--- NOTE | 2024-01-17 17:24 | P.PN_ITS ---
Subjective Subjective Interval history: She is feeling better. She denies any dyspnea, or palpitations. Still feels a bit weak Exam Vital Signs (past 8 hours): - 01/17/24 11:31 01/17/24 13:16 01/17/24 16:31 Temperature 98.3 F 98.3 F 98.2 F Pulse Rate 47 L 47 L 54 L Respiratory Rate 16 16 16 Blood Pressure 121/54 L 118/56 L 101/43 L Pulse Oximetry 96 96 96 Oxygen Delivery Method Nasal Cannula Oxygen Flow Rate 0 Narrative Exam Narrative: Gen: No acute distress, mildly ill appearing female CV: RRR no m/r/g Pulm: CTA b/l Abd: S, tender RLQ, mild, nondistended. Ext: trace edema b/l LE Objective Labs 01/17/24 04:45 01/17/24 04:45 Labs: Laboratory Results - last 24 hr 01/17/24 04:45 WBC 22.8 H RBC 4.41 Hgb 11.5 L Hct 35.2 L MCV 79.8 L MCH 26.0 MCHC 32.6 RDW 15.7 H Plt Count 293 Neut % (Auto) 86.8 H Lymph % (Auto) 6.1 L [place] % (Auto) 5.9 Eos % (Auto) 0.4 L Baso % (Auto) 0.8 Neut # (Auto) 58862 H Lymph # (Auto) 1400 [place] # (Auto) 1400 H Eos # (Auto) 100 Baso # (Auto) 200 H Sodium 135 L Potassium 4.3 Chloride 103 Carbon Dioxide 27 BUN 37 H Creatinine 1.92 H Estimated GFR 28 L BUN/Creatinine Ratio 19.3 Glucose 143 H Calcium 9.1 Magnesium 1.6 Total Bilirubin 0.5 AST 17 ALT 11 Alkaline Phosphatase 63 Total Protein 7.8 Albumin 3.8 Globulin 4.0 Albumin/Globulin Ratio 1.0 PFSH Medical History Acute kidney injury Appendicitis with perforation Vertigo Sedentary lifestyle Stage II pressure ulcer of sacral region (~02/2023) Hyperlipidemia Thyroid nodule Incontinence Breast screening Abnormal mammogram of left breast NSTEMI (non-ST elevated myocardial infarction) (09/2018) Recent heart attack Coronary artery disease Osteopenia (05/20/14) Knee osteoarthritis Hypertension (~2011) Diabetes mellitus (~2011) Rheumatoid arthritis Colon polyps (08/31/14) Surgical History History of bilateral knee replacement (2009) History of colonoscopy with polypectomy (08/31/14) History of left cataract surgery (03/23/15) History of right cataract surgery (04/06/15) Anesthesia History of knee replacement History of knee replacement Status post delivery (12/21/78) Family History Brother Drowning Father Heart disease Mother Diabetes mellitus Sister Bone cancer Sister Bone cancer Social History marital status: household members: family and children Smoking Status: Never smoker alcohol intake: current substance use type: does not use Assessment & Plan Assessment & Plan narrative: 1. Sepsis with KADE, acute respiratory failure with hypoxia secondary to R pyelonephritis and nephrolithiasis. - continue ceftriaxone 2g q 24 hours, presume bacteremia at this point given sepsis. - follow up urine and blood cultures. - discussed with urology, no stent needed at this time. Will continue to monitor response to antibiotics. Consider repeat imaging if not improving clinically. - Cr to 1.78 from 1.2 about a month ago, still up again today. - tylenol, oxycodone, morphine ordered for as needed pain medications from pyelonephritis. - if continued worsening creatinine and WBC. repeat imaging tomorrow, reconsult urology. Patient's pain is improved and clinically improved today overall. 2. Atrial fibrillation, chronic, present on admission - continue home apixaban, diltiazem, and metoprolol. 3. Recent NSTEMI, LAD stent placement (carrie Ochoa), CAD, with history of TAVR - continue plavix and statin 4. Acute on chronic HFpEF. -echo on 11/11/23 with EF 65-70%, mild LVH, progressive mod-severe MS, mild-mod AR, normal bioprosthetic aortic valve -hold jardiance due to KADE -diuresed initially, will hold additional diuresis for now, continue as needed. 5. Type 2 Diabetes on insulin, stable. -continue home lantus 40 units daily -hold metformin due to KADE -ordered for insulin sliding scale 6. Hypertension, stable/ -continue above medications. Code: Full, surrogate is patient's daughter DVT: on apixaban I have utilized all available immediate resources to obtain, update, or review the patient's current medications. Dispo: patient admitted under inpatient status. Unclear if will be able to discharge home or possible SNF, will have PT/OT evaluations if needed once more stable from sepsis. Additional history obtained via discussions with bedside staff and case management. These discussions contributed to the creation of the above assessment and plan. I have reviewed patient's presenting documentation, labs, and imaging personally.
[2024-01-18 00:05] VITALS: BP 104/47; PULSE 52; RESP 18; TEMP 36.1; O2SAT 95
[2024-01-18 04:10] VITALS: BP 128/49; PULSE 52; RESP 16; TEMP 36.2; O2SAT 97
[2024-01-18] MEDS: cefTRIAXone 2,000 MG in SODIUM CHLORIDE 0.9% 100 ML 200 MG IV (04:11)
[2024-01-18 06:44] LABS: Add Manual Diff / Slide Review NO; Basophils Absolute Auto 100 /uL (0-100); Basophils Percent Auto 0.9 % (0-2); Eosinophils Absolute Auto 300 /uL (0-450); Eosinophils Percent Auto 2.2 % (2-4); Hematocrit 31.2 % (36-46); Hemoglobin 10.2 g/dL (12.0-16.0); Lymphocytes Absolute Auto 1600 /uL (1100-4500); Lymphocytes Percent Auto 10.2 % (25-40); Mean Corpuscular HGB Conc 32.8 % (30-36); Mean Corpuscular Hemoglobin 26.4 PG (26-34); Mean Corpuscular Volume 80.5 fL (80-100); Monocytes Absolute Auto 1300 /uL (0-900); Monocytes Percent Auto 8.5 % (3-14); Neutrophils Absolute Auto 12100 /uL (1500-7000); Neutrophils Percent Auto 78.2 % (50-75); Platelet Count 234 X10^3/uL (150-400); Red Blood Cell Count 3.88 X10^6/uL (4.0-5.2); Red Cell Distribution Width 16.2 % (11.6-14.8); White Blood Cell Count 15.4 X10^3/uL (4.5-11.0)
[2024-01-18 07:01] LABS: Alanine Aminotransferase 10 IU/L (<35); Albumin 3.3 g/dL (3.5-5.0); Albumin Globulin Ratio 0.9 (1.0-2.8); Alkaline Phosphatase 57 U/L (38-126); Aspartate Aminotransferase 15 IU/L (14-36); BUN Creatinine Ratio 24.1 (6-22); Bilirubin Total 0.5 mg/dL (0.2-1.3); Blood Urea Nitrogen 41 mg/dL (7-17); Calcium 8.4 mg/dL (8.4-10.2); Carbon Dioxide 24 mmol/L (22-32); Chloride 101 mmol/L (98-107); Estimated Glomerular Filt Rate 32 mL/min (>60); Globulin 3.7 g/dL (1.7-4.1); Glucose 197 mg/dL (80-110); HEMOLYSIS < 15 (0-50); Magnesium 1.8 mg/dL (1.6-2.3); Potassium 4.1 mmol/L (3.4-5.1); Sodium 132 mmol/L (137-145)
[2024-01-18 08:00] VITALS: BP 117/49; PULSE 53; TEMP 37.7
[2024-01-18] MEDS: CLOPIDOGREL 75 MG TABLET PO (08:10)
[2024-01-18] MEDS: INSULIN GLARGINE 100 UNIT/ML 3ML PEN 40 UNIT SUBCUT (08:10)
[2024-01-18] MEDS: APIXABAN 5 MG TABLET PO ×2 (08:10→21:57)
[2024-01-18] MEDS: INSULIN LISPRO 100 UNIT/ML 3ML VIAL SUBCUT ×3 (08:11→16:54)
[2024-01-18] MEDS: ACETAMINOPHEN 325 MG TABLET 650 MG PO ×2 (08:18→16:58)
--- NOTE | 2024-01-18 11:16 | CM.DPC ---
DCP Cont. Reviewed EMR and team rounds for status updates. Pt is getting closer to being ready for d/c. This [employer]IC called pt's son, dEdie, and explained how to complete the Medicaid application for long-term care, or for in-home caregivers. He plans on coming today to help pt complete this and will leave it for this [employer]TAIN[employer] COMIC in the room in order to fax tomorrow.
[2024-01-18 12:00] VITALS: BP 91/47; PULSE 49; TEMP 36.4
--- NOTE | 2024-01-18 13:19 | PM.PN.1 ---
Subjective Subjective Interval history: Feeling better today, less weak. She is constipated. Less dysuria. Exam Vital Signs (past 8 hours): - 01/18/24 08:00 01/18/24 12:00 Temperature 99.9 F H 97.5 F L Pulse Rate 53 L 49 L Blood Pressure 117/49 L 91/47 L Oxygen Delivery Method Nasal Cannula Oxygen Flow Rate 0 Narrative Exam Narrative: NAD, alert and oriented. Fluent speech. Lungs are clear, normal rate and effort. Heart is regular, no murmur gallop or rub. Abdomen is soft, non distended. Extremities are free of edema. Objective Labs 01/18/24 06:33 01/18/24 06:33 Labs: Laboratory Results - last 24 hr 01/18/24 06:33 WBC 15.4 H RBC 3.88 L Hgb 10.2 L Hct 31.2 L MCV 80.5 MCH 26.4 MCHC 32.8 RDW 16.2 H Plt Count 234 Neut % (Auto) 78.2 H Lymph % (Auto) 10.2 L Hendricks % (Auto) 8.5 Eos % (Auto) 2.2 Baso % (Auto) 0.9 Neut # (Auto) 93193 H Lymph # (Auto) 1600 Hendricks # (Auto) 1300 H Eos # (Auto) 300 Baso # (Auto) 100 Sodium 132 L Potassium 4.1 Chloride 101 Carbon Dioxide 24 BUN 41 H Creatinine 1.70 H Estimated GFR 32 L BUN/Creatinine Ratio 24.1 H Glucose 197 H Calcium 8.4 Magnesium 1.8 Total Bilirubin 0.5 AST 15 ALT 10 Alkaline Phosphatase 57 Total Protein 7.0 Albumin 3.3 L Globulin 3.7 Albumin/Globulin Ratio 0.9 L [facility] Medical History Acute kidney injury Appendicitis with perforation Vertigo Sedentary lifestyle Stage II pressure ulcer of sacral region (~02/2023) Hyperlipidemia Thyroid nodule Incontinence Breast screening Abnormal mammogram of left breast NSTEMI (non-ST elevated myocardial infarction) (09/2018) Recent heart attack Coronary artery disease Osteopenia (05/20/14) Knee osteoarthritis Hypertension (~2011) Diabetes mellitus (~2011) Rheumatoid arthritis Colon polyps (08/31/14) Surgical History History of bilateral knee replacement (2009) History of colonoscopy with polypectomy (08/31/14) History of left cataract surgery (03/23/15) History of right cataract surgery (04/06/15) Anesthesia History of knee replacement History of knee replacement Status post delivery (12/21/78) Family History Brother Drowning Father Heart disease Mother Diabetes mellitus Sister Bone cancer Sister Bone cancer Social History marital status: household members: family and children Smoking Status: Never smoker alcohol intake: current substance use type: does not use Assessment & Plan Assessment & Plan narrative: 1. Sepsis with KADE, acute respiratory failure with hypoxia secondary to R pyelonephritis and nephrolithiasis. Present on admission and improving. - continue ceftriaxone 2g q 24 hours, blood cultures negative. - follow up urine and blood cultures. All negative. - discussed with urology, no stent needed at this time. Will continue to monitor response to antibiotics. Consider repeat imaging if not improving clinically. 2. Atrial fibrillation, chronic, present on admission and stable. - continue home apixaban, diltiazem, and metoprolol. 3. Recent NSTEMI, LAD stent placement (carrie Ochoa), CAD, with history of TAVR, stable. - continue plavix and statin 4. Acute on chronic HFpEF. Present on admission and improved. -echo on 11/11/23 with EF 65-70%, mild LVH, progressive mod-severe MS, mild-mod AR, normal bioprosthetic aortic valve -hold jardiance due to KADE -diuresed initially, will hold additional diuresis for now, continue as needed. 5. Type 2 Diabetes on insulin, stable. -continue home lantus 40 units daily -hold metformin due to KADE -ordered for insulin sliding scale 6. Hypertension, stable. -continue above medications. 7. Constipation, present on admission and active. - bowel program. Code: Full, surrogate is patient's daughter DVT: on apixaban Anticipate discharge home on January 18.
[2024-01-18] MEDS: polyethylene glycoL 3350 17 GM POWD.PACK PO ×2 (13:55→21:57)
[2024-01-18 15:07] VITALS: BP 123/46; PULSE 55
[2024-01-18] MEDS: ATORVASTATIN 20 MG TABLET 80 MG PO (16:54)
[2024-01-18 20:00] VITALS: BP 116/48; PULSE 64; RESP 18; TEMP 35.9; O2SAT 98
[2024-01-19 04:00] VITALS: BP 114/57; PULSE 61; RESP 18; TEMP 35.8; O2SAT 97
[2024-01-19] MEDS: cefTRIAXone 2,000 MG in SODIUM CHLORIDE 0.9% 100 ML 200 MG IV (05:16)
[2024-01-19 05:52] LABS: Add Manual Diff / Slide Review NO; Basophils Absolute Auto 100 /uL (0-100); Basophils Percent Auto 1.1 % (0-2); Eosinophils Absolute Auto 300 /uL (0-450); Eosinophils Percent Auto 2.9 % (2-4); Lymphocytes Absolute Auto 1300 /uL (1100-4500); Lymphocytes Percent Auto 14.8 % (25-40); Mean Corpuscular HGB Conc 33.2 % (30-36); Mean Corpuscular Hemoglobin 26.6 PG (26-34); Monocytes Absolute Auto 900 /uL (0-900); Monocytes Percent Auto 10.4 % (3-14); Neutrophils Absolute Auto 6400 /uL (1500-7000); Neutrophils Percent Auto 70.8 % (50-75); Platelet Count 248 X10^3/uL (150-400); Red Blood Cell Count 3.75 X10^6/uL (4.0-5.2); Red Cell Distribution Width 15.5 % (11.6-14.8); White Blood Cell Count 9.1 X10^3/uL (4.5-11.0)
[2024-01-19 06:06] LABS: Alanine Aminotransferase 12 IU/L (<35); Albumin 3.2 g/dL (3.5-5.0); Albumin Globulin Ratio 0.9 (1.0-2.8); Alkaline Phosphatase 59 U/L (38-126); Aspartate Aminotransferase 16 IU/L (14-36); Bilirubin Total 0.4 mg/dL (0.2-1.3); Blood Urea Nitrogen 42 mg/dL (7-17); Calcium 8.6 mg/dL (8.4-10.2); Carbon Dioxide 27 mmol/L (22-32); Chloride 103 mmol/L (98-107); Estimated Glomerular Filt Rate 39 mL/min (>60); Globulin 3.7 g/dL (1.7-4.1); Glucose 194 mg/dL (80-110); HEMOLYSIS < 15 (0-50); Magnesium 2.1 mg/dL (1.6-2.3); Potassium 4.2 mmol/L (3.4-5.1); Sodium 134 mmol/L (137-145); Total Protein 6.9 g/dL (6.3-8.2)
[2024-01-19 08:00] VITALS: BP 137/59; PULSE 64; RESP 19; TEMP 36.9; O2SAT 99
--- NOTE | 2024-01-19 08:44 | PM.PN.1 ---
Subjective Subjective Interval history: Doing well. No pain. Exam Vital Signs (past 8 hours): - 01/20/24 08:07 Pulse Rate 64 Blood Pressure 116/47 L Oxygen Delivery Method Room Air Oxygen Flow Rate 0 Narrative Exam Narrative: NAD, alert and oriented. Fluent speech. Lungs are clear, normal rate and effort. Heart is regular, no murmur gallop or rub. Abdomen is soft, non distended. Extremities are free of edema. Objective Labs 01/19/24 05:00 01/19/24 05:00 [facility], [facility] Medical History Acute kidney injury Appendicitis with perforation Vertigo Sedentary lifestyle Stage II pressure ulcer of sacral region (~02/2023) Hyperlipidemia Thyroid nodule Incontinence Breast screening Abnormal mammogram of left breast NSTEMI (non-ST elevated myocardial infarction) (09/2018) Recent heart attack Coronary artery disease Osteopenia (05/20/14) Knee osteoarthritis Hypertension (~2011) Diabetes mellitus (~2011) Rheumatoid arthritis Colon polyps (08/31/14) Surgical History History of bilateral knee replacement (2009) History of colonoscopy with polypectomy (08/31/14) History of left cataract surgery (03/23/15) History of right cataract surgery (04/06/15) Anesthesia History of knee replacement History of knee replacement Status post delivery (12/21/78) Family History Brother Drowning Father Heart disease Mother Diabetes mellitus Sister Bone cancer Sister Bone cancer Social History marital status: household members: family and children Smoking Status: Never smoker alcohol intake: current substance use type: does not use Assessment & Plan Assessment & Plan narrative: 1. Sepsis with KADE, acute respiratory failure with hypoxia secondary to R pyelonephritis and nephrolithiasis. Present on admission and improving. - continue ceftriaxone 2g q 24 hours, blood cultures negative. - follow up urine and blood cultures. All negative. - discussed with urology, no stent needed at this time. Will continue to monitor response to antibiotics. Consider repeat imaging if not improving clinically. 2. Atrial fibrillation, chronic, present on admission and stable. - continue home apixaban, diltiazem, and metoprolol. 3. Recent NSTEMI, LAD stent placement (carrie Ochoa), CAD, with history of TAVR, stable. - continue plavix and statin 4. Acute on chronic HFpEF. Present on admission and improved. -echo on 11/11/23 with EF 65-70%, mild LVH, progressive mod-severe MS, mild-mod AR, normal bioprosthetic aortic valve -hold jardiance due to KADE -diuresed initially, will hold additional diuresis for now, continue as needed. 5. Type 2 Diabetes on insulin, stable. -continue home lantus 40 units daily 6. Hypertension, stable. -continue above medications. 7. Constipation, present on admission and active. - bowel program. Discharge fell through, ride did not come.
[2024-01-19] MEDS: INSULIN LISPRO 100 UNIT/ML 3ML VIAL SUBCUT ×4 (09:04→21:17)
[2024-01-19] MEDS: INSULIN GLARGINE 100 UNIT/ML 3ML PEN 40 UNIT SUBCUT (09:07)
[2024-01-19] MEDS: APIXABAN 5 MG TABLET PO ×2 (09:12→21:15)
[2024-01-19] MEDS: CLOPIDOGREL 75 MG TABLET PO (09:12)
[2024-01-19 09:25] VITALS: BP 137/59; PULSE 64
[2024-01-19] MEDS: METOPROLOL ER 50 MG TABLET PO (09:25)
[2024-01-19] MEDS: polyethylene glycoL 3350 17 GM POWD.PACK PO ×2 (09:25→21:15)
[2024-01-19] MEDS: dilTIAZem CD 120 MG CAP 240 MG PO ×2 (09:26→21:15)
--- NOTE | 2024-01-19 10:26 | P.DS_ITS ---
History of Present Illness History of Present Illness Chief complaint: R abd pain Narrative: 73 y/o with PMH of recurrent UTI and bilateral kidney stones with right hydronephrosis and CKD, presented to ED hours after she developed Rt groin pain and diagnosed with UTI. She was seen in the ED 10 days ago after she sustained GLF. She had UTI then, treated with cefdinir. In the ED short of breath with pulmonary edema requiring dose of Lasix iv that improved dyspnea. She was admitted overnight, with CT showing possible R obstructive hydronephrosis in the setting of sepsis, urology was consulted as soon as possible. In discussion with urology, thought that mild change in hydronephrosis was more likely related to inflammation rather than an acute obstructive process and no stenting was recommended at this time. Recommended continued antibiotiocs for pyelonephritis. She still feels ill, with improved nausea but little appetitie this afternoon. Still having some RLQ pain. Discharge Providers Provider Date of admission: 01/16/24 04:14 Discharge Date: 01/19/24 Primary care physician: Chino Ruggiero MD Discharge provider: Richard Sloares MD Summary Hospital Course Discharge Diagnosis: 1. Sepsis secondary to right pyelonephritis and nephrolithiasis. Present on admission and improving. - continued ceftriaxone 2g q 24 hours, blood cultures negative. - follow up urine and blood cultures. All negative. - discussed with urology, no stent needed at this time. Will continue to monitor response to antibiotics. 2. Acute respiratory failure with hypoxia, present on admission and improved. 3. Right pyelonephritis, present on admission and improving. 4. Nephrolithiasis, present on admission and improving. 5. Atrial fibrillation, chronic, present on admission and stable. - continued home apixaban, diltiazem, and metoprolol. 6. Recent NSTEMI, LAD stent placement (carrie Ochoa), CAD, with history of TAVR, stable. - continue plavix and statin 7. Acute on chronic HFpEF. Present on admission and improved. -echo on 11/11/23 with EF 65-70%, mild LVH, progressive mod-severe MS, mild-mod AR, normal bioprosthetic aortic valve -hold jardiance due to KADE -diuresed initially, will hold additional diuresis for now, continue as needed. 8. Type 2 Diabetes on insulin, stable. -continue home lantus 40 units daily -hold metformin due to KADE -ordered for insulin sliding scale 9. Hypertension, stable. -continue above medications. 10. Constipation, present on admission and active. - bowel program. Hospital Course: The patient was a 73-year-old female with history of recurrent UTI no nephrolithiasis who presented with right groin pain and urinary tract infection. She had recently been on cefdinir orally. The patient was admitted with possible right obstructive hydronephrosis and IV antibiotics were given. Urology was consulted and they felt that there was no indication for acute stenting at the hydro my relate to inflammatory changes of the pyelonephritis. The patient did improve clinically on IV antibiotics and had resolution of pain. She was initially hypoxic and this also improved with initial diuresis. The patient's creatinine also improved. On the day of discharge she appeared to be at baseline and was felt to be stable for discharge home with oral antibiotics and close follow up with her PCP. Recommend consideration of outpatient neurology consultation. Status at Discharge Cognitive/behavioral status at discharge: oriented Functional status at discharge: independent ambulation Overall status at discharge: patient is back to baseline Time Spent with Patient Time spent: Greater than 30 minutes Exam Vital Signs (past 8 hours): - 01/19/24 04:00 01/19/24 08:00 01/19/24 09:25 Temperature 96.5 F L 98.4 F Pulse Rate 61 64 64 Respiratory Rate 18 19 Blood Pressure 114/57 L 137/59 L 137/59 L Pulse Oximetry 97 99 Oxygen Flow Rate 0 Oxygen Delivery Method Room Air Oxygen Flow Rate 0 Narrative Exam Narrative: NAD, alert and oriented. Fluent speech. Lungs are clear, normal rate and effort. Heart is regular, no murmur gallop or rub. Abdomen is soft, non distended. Extremities are free of edema. Objective Labs 01/19/24 05:00 01/19/24 05:00 Labs: Laboratory Results - last 24 hr 01/19/24 05:00 WBC 9.1 RBC 3.75 L Hgb 10.0 L Hct 30.0 L MCV 80.0 MCH 26.6 MCHC 33.2 RDW 15.5 H Plt Count 248 Neut % (Auto) 70.8 Lymph % (Auto) 14.8 L Burnet % (Auto) 10.4 Eos % (Auto) 2.9 Baso % (Auto) 1.1 Neut # (Auto) 6400 Lymph # (Auto) 1300 Burnet # (Auto) 900 Eos # (Auto) 300 Baso # (Auto) 100 Sodium 134 L Potassium 4.2 Chloride 103 Carbon Dioxide 27 BUN 42 H Creatinine 1.45 H Estimated GFR 39 L BUN/Creatinine Ratio 29.0 H Glucose 194 H Calcium 8.6 Magnesium 2.1 Total Bilirubin 0.4 AST 16 ALT 12 Alkaline Phosphatase 59 Total Protein 6.9 Albumin 3.2 L Globulin 3.7 Albumin/Globulin Ratio 0.9 L [facility] Medical History Acute kidney injury Appendicitis with perforation Vertigo Sedentary lifestyle Stage II pressure ulcer of sacral region (~02/2023) Hyperlipidemia Thyroid nodule Incontinence Breast screening Abnormal mammogram of left breast NSTEMI (non-ST elevated myocardial infarction) (09/2018) Recent heart attack Coronary artery disease Osteopenia (05/20/14) Knee osteoarthritis Hypertension (~2011) Diabetes mellitus (~2011) Rheumatoid arthritis Colon polyps (08/31/14) Surgical History History of bilateral knee replacement (2009) History of colonoscopy with polypectomy (08/31/14) History of left cataract surgery (03/23/15) History of right cataract surgery (04/06/15) Anesthesia History of knee replacement History of knee replacement Status post delivery (12/21/78) Family History Brother Drowning Father Heart disease Mother Diabetes mellitus Sister Bone cancer Sister Bone cancer Social History marital status: household members: family and children Smoking Status: Never smoker alcohol intake: current substance use type: does not use Discharge Assessment & Plan Assessment and Plan Assessment: 1. Sepsis secondary to right pyelonephritis and nephrolithiasis. Present on admission and improving. - continued ceftriaxone 2g q 24 hours, blood cultures negative. - follow up urine and blood cultures. All negative. - discussed with urology, no stent needed at this time. Will continue to monitor response to antibiotics. 2. Acute respiratory failure with hypoxia, present on admission and improved. 3. Right pyelonephritis, present on admission and improving. 4. Nephrolithiasis, present on admission and improving. 5. Atrial fibrillation, chronic, present on admission and stable. - continued home apixaban, diltiazem, and metoprolol. 6. Recent NSTEMI, LAD stent placement (Carrie Ochoa), CAD, with history of TAVR, stable. - continue plavix and statin 7. Acute on chronic HFpEF. Present on admission and improved. -echo on 11/11/23 with EF 65-70%, mild LVH, progressive mod-severe MS, mild-mod AR, normal bioprosthetic aortic valve -hold jardiance due to KADE -diuresed initially, held additional diuresis. 8. Type 2 Diabetes on insulin, stable. -continued home lantus 40 units daily -held metformin due to KADE, resume at dsicharge. 9. Hypertension, stable. -continue above medication 10. Constipation, stable Plan of Treatment: Discharge home and resume cefdinir until gone. This should be approximately 8 additional days. The patient has E coli which is sensitive to cephalosporins. She was asked to see your PCP within the next 6 days and we will need an outpatient referral to Urology to discuss her nephrolithiasis. Discharge Plan Discharge Plan Patient Disposition: Home Provider Discharge Comment: Stable for discharge. Oral antibiotics and outpatient Urology FU within 2 weeks. Discharge orders & Medications Prescriptions: Continued insulin glargine [Lantus Solostar U-100 Insulin] 100 unit/mL (3 mL) insulin pen 40 unit SUBCUT QAM Qty: 3 3RF Patient Comments: pt states that she takes Lantus in the morning instead of nighttime. fluconazole 200 mg tablet 200 mg PO DAILY Qty: 14 0RF Rx Instructions: stop amiodarone while taking fluconazole insulin lispro [Humalog KwikPen Insulin] 100 unit/mL insulin pen 1 sliding scale dose SUBCUT USEASDIRECTD Qty: 15 3RF Rx Instructions: slide scale 2-14 units SQ TID Eliquis 5 mg tablet 5 mg PO BID Qty: 180 2RF metoprolol succinate 50 mg tablet extended release 24 hr 50 mg PO DAILY Qty: 90 3RF diltiazem HCl 120 mg capsule,extended release 12 hr 240 mg PO BID Qty: 180 3RF clopidogrel 75 mg tablet 75 mg PO QAM Qty: 90 3RF metformin 500 mg tablet 1,000 mg PO BID Qty: 360 3RF Rx Instructions: TAKE TWO TABLETS BY MOUTH TWICE DAILY nitroglycerin 0.4 mg tablet, sublingual 0.4 mg SL Q5-15M PRN (Reason: chest pain) Qty: 90 11RF Patient Comments: patient has prescription but has not taken yet Rx Instructions: until response; do not exceed 3 doses per episode atorvastatin [Lipitor] 80 mg tablet 80 mg PO QPM insulin lispro [Humalog KwikPen Insulin] 100 unit/mL insulin pen See Rx Instructions .ROUTE .COMPLEX Patient Comments: [NO ORIGINAL SIG] Rx Instructions: sliding scale cefdinir 300 mg capsule 300 mg PO BID Qty: 10 0RF nystatin 100,000 unit/gram cream 1 applic topical TID No Action (DME) pen needle, diabetic [Comfort EZ Pen Garnett] 29 gauge x 1/2 needle See Rx Instructions .ROUTE .MEDSUPPLY Qty: 100 3RF Rx Instructions: use to check blood glucose 3x per day (DME) True Metrix Glucose Test Strip Strip See Rx Instructions .ROUTE .COMPLEX Qty: 100 3RF Dose Instruction: USE TO TEST BLOOD SUGAR DAILY Rx Instructions: USE TO TEST BLOOD SUGAR DAILY (DME) Parking Permit... See Rx Instructions .Route .MEDSUPPLY Qty: 1 0RF Rx Instructions: Patient meets criteria for permanent parking placard. Follow up/Referrals: Chino Ruggiero MD [Primary Care Provider] - Diet/Activity/Treatments Diet: Carb-consistent/Diabetic Visit Report/Discharge Packet Stand Alone Forms: Patient Portal/API Discharge Data Primary Care Provider: Chino Ruggiero
--- NOTE | 2024-01-19 11:04 | CM.DPC ---
DCP Cont. Reviewed EMR and team rounds for status updates. Pt has been medically cleared for d/c, family will transport her home. No further DCP needs indicated at this time.
--- NOTE | 2024-01-19 11:07 | PC.NURSE ---
Addendum entered by Uriel Jernigan R.N. 01/19/24 15:19: Discharge orders written. Pt waiting for son to come after work. Original Note: alert and oriented follows commands, offers no overt c/o pain or other issues.
[2024-01-19 12:00] VITALS: BP 131/48; PULSE 65; RESP 19; TEMP 36.4; O2SAT 98
[2024-01-19 12:41] VITALS: BP 131/48; PULSE 65
--- NOTE | 2024-01-19 14:16 | DIET.CONS2 ---
Dietary Inpatient Consultation Note Admission Date: 01/16/2024 04:14 RD alerted by Unit Host that pt consistently overordering carbs at meals, pt with DM2 on CCD4 diet allowed generous 60g CHO per meal. Pt ordered hamburger on bun with potato chips for dinner, also wanted muffin which would put pt over carb count. Pt declines lettuce wrap vs. bun to allow for muffin in carb count. Pt allowed muffin at breakfast tomorrow am as total carb count within limit. Pts BG currently high at 236 prior to lunch. Pts latest A1c shows 6.6 indicating good home management. Diet: 01/16/24 Breakfast Carbohydrate Consistent Diet Diet Modifications: Carbohydrate level: Large (4 CHO) Reflex DM orders: No Food Texture: Level 7 - Regular Liquid Consistency: Level 0 - Thin Nutrition Percent Meal Consumed 100% 01/19/24 12:56 Percent Meal Consumed 90 01/19/24 09:00 Percent Meal Consumed 100% 01/18/24 18:31 Percent Meal Consumed 100% 01/18/24 17:53 Percent Meal Consumed 100% 01/18/24 14:16 Percent Meal Consumed 100% 01/18/24 09:42 Percent Meal Consumed 25% 01/17/24 18:00 Electronically Signed by: Sue Schaeffer 01/19/24 14:16 Clinical Dietitian [address] [id number]
[2024-01-19] MEDS: ATORVASTATIN 20 MG TABLET 80 MG PO (18:11)
[2024-01-19 20:00] VITALS: BP 116/47; BP 120/58; PULSE 61; PULSE 63; RESP 17; TEMP 35.9; TEMP 36; O2SAT 97; O2SAT 98
[2024-01-20] MEDS: cefTRIAXone 2,000 MG in SODIUM CHLORIDE 0.9% 100 ML 200 MG IV (03:32)
[2024-01-20 08:00] VITALS: BP 137/57; PULSE 53; RESP 16; TEMP 36.6; O2SAT 99
[2024-01-20] MEDS: dilTIAZem CD 120 MG CAP 240 MG PO (08:06)
[2024-01-20 08:07] VITALS: BP 116/47; PULSE 64
[2024-01-20] MEDS: CLOPIDOGREL 75 MG TABLET PO (08:07)
[2024-01-20] MEDS: METOPROLOL ER 50 MG TABLET PO (08:07)
[2024-01-20] MEDS: APIXABAN 5 MG TABLET PO (08:07)
[2024-01-20] MEDS: INSULIN LISPRO 100 UNIT/ML 3ML VIAL SUBCUT (08:08)
--- NOTE | 2024-01-20 08:08 | CM.DPNOTE ---
Addendum entered by SAYRA Sheehan 01/20/24 08:34: ADD: DC Summary and resumption HH order emailed to [email or web address] at [facility]. Placed call to Alexandra, had to . Referral to [facility] Uriah Rosales placed online at [email or web address] Original Note: DC Note Patient discharged home yesterday. Placed call to naun Morgan who reports he did not hear about patient's discharge yesterday. 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 Son agreeable and will transport patient home. Met w/patient to review discharge plan; patient would like return home with son and resumption of [facility]. Discussed [facility] and patient agreeable to referral. Plan: Discharge home w/naun Morgan P [phone] , resumption of [facility] and referral to Uriah Rosales [facility] with the [facility] Department cell P [phone] [email or web address]
[2024-01-20] MEDS: INSULIN GLARGINE 100 UNIT/ML 3ML PEN 40 UNIT SUBCUT (08:09)
[2024-01-20] MEDS: polyethylene glycoL 3350 17 GM POWD.PACK PO (08:10)
--- NOTE | 2024-01-20 08:47 | PM.DS.1 ---
History of Present Illness History of Present Illness Chief complaint: R abd pain Narrative: 73 y/o with PMH of recurrent UTI and bilateral kidney stones with right hydronephrosis and CKD, presented to ED hours after she developed Rt groin pain and diagnosed with UTI. She was seen in the ED 10 days ago after she sustained GLF. She had UTI then, treated with cefdinir. In the ED short of breath with pulmonary edema requiring dose of Lasix iv that improved dyspnea. She was admitted overnight, with CT showing possible R obstructive hydronephrosis in the setting of sepsis, urology was consulted as soon as possible. In discussion with urology, thought that mild change in hydronephrosis was more likely related to inflammation rather than an acute obstructive process and no stenting was recommended at this time. Recommended continued antibiotiocs for pyelonephritis. She still feels ill, with improved nausea but little appetitie this afternoon. Still having some RLQ pain. Discharge Providers Provider Date of admission: 01/16/24 04:14 Discharge Date: 01/20/24 Primary care physician: Chino Ruggiero MD Consults: 01/20/24 08:31 Consult to Home Health Routine Comment: Reason For Exam: Resume home health services Discharge provider: Richard Solares MD Summary Hospital Course Discharge Diagnosis: 1. Sepsis secondary to right pyelonephritis and nephrolithiasis. Present on admission and improving. - continued ceftriaxone 2g q 24 hours, blood cultures negative. - follow up urine and blood cultures. All negative. - discussed with urology, no stent needed at this time. Will continue to monitor response to antibiotics. 2. Acute respiratory failure with hypoxia, present on admission and improved. 3. Right pyelonephritis, present on admission and improving. 4. Nephrolithiasis, present on admission and improving. 5. Atrial fibrillation, chronic, present on admission and stable. - continued home apixaban, diltiazem, and metoprolol. 6. Recent NSTEMI, LAD stent placement (carrie Ochoa), CAD, with history of TAVR, stable. - continue plavix and statin 7. Acute on chronic HFpEF. Present on admission and improved. -echo on 11/11/23 with EF 65-70%, mild LVH, progressive mod-severe MS, mild-mod AR, normal bioprosthetic aortic valve -hold jardiance due to KADE -diuresed initially, will hold additional diuresis for now, continue as needed. 8. Type 2 Diabetes on insulin, stable. -continue home lantus 40 units daily -hold metformin due to KADE -ordered for insulin sliding scale 9. Hypertension, stable. -continue above medications. 10. Constipation, present on admission and active. - bowel program. Hospital Course: The patient was a 73-year-old female with history of recurrent UTI no nephrolithiasis who presented with right groin pain and urinary tract infection. She had recently been on cefdinir orally. The patient was admitted with possible right obstructive hydronephrosis and IV antibiotics were given. Urology was consulted and they felt that there was no indication for acute stenting at the hydro my relate to inflammatory changes of the pyelonephritis. The patient did improve clinically on IV antibiotics and had resolution of pain. She was initially hypoxic and this also improved with initial diuresis. The patient's creatinine also improved. On the day of discharge she appeared to be at baseline and was felt to be stable for discharge home with oral antibiotics and close follow up with her PCP. Recommend consideration of outpatient neurology consultation. Status at Discharge Cognitive/behavioral status at discharge: oriented Functional status at discharge: independent ambulation Overall status at discharge: patient is back to baseline Time Spent with Patient Time spent: Greater than 30 minutes Exam Vital Signs (past 8 hours): - 01/20/24 08:07 Pulse Rate 64 Blood Pressure 116/47 L Oxygen Delivery Method Room Air Oxygen Flow Rate 0 Narrative Exam Narrative: NAD, alert and oriented. Fluent speech. Lungs are clear, normal rate and effort. Heart is regular, no murmur gallop or rub. Abdomen is soft, non distended. Extremities are free of edema. Objective Labs 01/19/24 05:00 01/19/24 05:00 [facility] Medical History Acute kidney injury Appendicitis with perforation Vertigo Sedentary lifestyle Stage II pressure ulcer of sacral region (~02/2023) Hyperlipidemia Thyroid nodule Incontinence Breast screening Abnormal mammogram of left breast NSTEMI (non-ST elevated myocardial infarction) (09/2018) Recent heart attack Coronary artery disease Osteopenia (05/20/14) Knee osteoarthritis Hypertension (~2011) Diabetes mellitus (~2011) Rheumatoid arthritis Colon polyps (08/31/14) Surgical History History of bilateral knee replacement (2009) History of colonoscopy with polypectomy (08/31/14) History of left cataract surgery (03/23/15) History of right cataract surgery (04/06/15) Anesthesia History of knee replacement History of knee replacement Status post delivery (12/21/78) Family History Brother Drowning Father Heart disease Mother Diabetes mellitus Sister Bone cancer Sister Bone cancer Social History marital status: household members: family and children Smoking Status: Never smoker alcohol intake: current substance use type: does not use Discharge Assessment & Plan Assessment and Plan Assessment: . Sepsis secondary to right pyelonephritis and nephrolithiasis. Present on admission and improving. - continued ceftriaxone 2g q 24 hours, blood cultures negative. - follow up urine and blood cultures. All negative. - discussed with urology, no stent needed at this time. Will continue to monitor response to antibiotics. 2. Acute respiratory failure with hypoxia, present on admission and improved. 3. Right pyelonephritis, present on admission and improving. 4. Nephrolithiasis, present on admission and improving. 5. Atrial fibrillation, chronic, present on admission and stable. - continued home apixaban, diltiazem, and metoprolol. 6. Recent NSTEMI, LAD stent placement (Carrie Ochoa), CAD, with history of TAVR, stable. - continue plavix and statin 7. Acute on chronic HFpEF. Present on admission and improved. -echo on 11/11/23 with EF 65-70%, mild LVH, progressive mod-severe MS, mild-mod AR, normal bioprosthetic aortic valve -hold jardiance due to KADE -diuresed initially, held additional diuresis. 8. Type 2 Diabetes on insulin, stable. -continued home lantus 40 units daily -held metformin due to KADE, resume at dsicharge. 9. Hypertension, stable. -continue above medication 10. Constipation, stable Plan of Treatment: Discharge home and resume cefdinir until gone. This should be approximately 8 additional days. The patient has E coli which is sensitive to cephalosporins. She was asked to see your PCP within the next 6 days and we will need an outpatient referral to Urology to discuss her nephrolithiasis. Discharge Plan Discharge Plan Patient Disposition: Home Provider Discharge Comment: Stable for discharge. Oral antibiotics and outpatient Urology FU within 2 weeks. Discharge orders & Medications Prescriptions: Continued insulin glargine [Lantus Solostar U-100 Insulin] 100 unit/mL (3 mL) insulin pen 40 unit SUBCUT QAM Qty: 3 3RF Patient Comments: pt states that she takes Lantus in the morning instead of nighttime. fluconazole 200 mg tablet 200 mg PO DAILY Qty: 14 0RF Rx Instructions: stop amiodarone while taking fluconazole insulin lispro [Humalog KwikPen Insulin] 100 unit/mL insulin pen 1 sliding scale dose SUBCUT USEASDIRECTD Qty: 15 3RF Rx Instructions: slide scale 2-14 units SQ TID Eliquis 5 mg tablet 5 mg PO BID Qty: 180 2RF metoprolol succinate 50 mg tablet extended release 24 hr 50 mg PO DAILY Qty: 90 3RF diltiazem HCl 120 mg capsule,extended release 12 hr 240 mg PO BID Qty: 180 3RF clopidogrel 75 mg tablet 75 mg PO QAM Qty: 90 3RF metformin 500 mg tablet 1,000 mg PO BID Qty: 360 3RF Rx Instructions: TAKE TWO TABLETS BY MOUTH TWICE DAILY nitroglycerin 0.4 mg tablet, sublingual 0.4 mg SL Q5-15M PRN (Reason: chest pain) Qty: 90 11RF Patient Comments: patient has prescription but has not taken yet Rx Instructions: until response; do not exceed 3 doses per episode atorvastatin [Lipitor] 80 mg tablet 80 mg PO QPM insulin lispro [Humalog KwikPen Insulin] 100 unit/mL insulin pen See Rx Instructions .ROUTE .COMPLEX Patient Comments: [NO ORIGINAL SIG] Rx Instructions: sliding scale cefdinir 300 mg capsule 300 mg PO BID Qty: 10 0RF nystatin 100,000 unit/gram cream 1 applic topical TID No Action (DME) pen needle, diabetic [Comfort EZ Pen [place]] 29 gauge x 1/2 needle See Rx Instructions .ROUTE .MEDSUPPLY Qty: 100 3RF Rx Instructions: use to check blood glucose 3x per day (DME) True Metrix Glucose Test Strip Strip See Rx Instructions .ROUTE .COMPLEX Qty: 100 3RF Dose Instruction: USE TO TEST BLOOD SUGAR DAILY Rx Instructions: USE TO TEST BLOOD SUGAR DAILY (DME) Parking Permit... See Rx Instructions .Route .MEDSUPPLY Qty: 1 0RF Rx Instructions: Patient meets criteria for permanent parking placard. Medication counseling provided by Pharmacist: No Follow up/Referrals: Chino Ruggiero MD [Primary Care Provider] - Activity Restrictions/Additional Instructions: As tolerated. Diet/Activity/Treatments Diet: Carb-consistent/Diabetic Visit Report/Discharge Packet Instructions: DI for Prescription Opioid Use Stand Alone Forms: Congestive Heart Failure, Patient Portal/API Discharge Data Primary Care Provider: Chino Ruggiero Quality MIPS - DC The patient has a history of heart transplant or Left Ventricular Assist Device (LVAD). If yes, STOP here.: No The patient has current or prior documentation of left ventricular ejection fraction (LVEF) less than or equal to 40%, or moderate or severely depressed left ventricular systolic function.: No
--- NOTE | 2024-01-20 10:08 | PC.NURSE ---
Discharge Note Patient A&O, VSS, RA, no complaints of pain/discomfort. Discharge plan reviewed with patient, patient agreeable. Discharge packet reviewed with patient, all questions/concerns addressed. PIV discontinued. Patient able to dress self with assistance. Patient taken down via wheelchair to POV.
== END 2024-01-20 09:50 | disposition home health service (06) | DRG 871 ==
LOC: ED 04:09 → AC 04:20
PROVIDERS: Internal Medicine; Admitting Provider Internal Medicine; Emergency Provider Emergency Medicine; PCP Family Medicine; Referring Provider Emergency Medicine; Visit Provider Internal Medicine
DX: A41.9 Sepsis, unspecified organism (principal); I50.33 Acute on chronic diastolic (congestive) heart failure; J96.01 Acute respiratory failure with hypoxia; N13.6 Pyonephrosis; I48.20 Chronic atrial fibrillation, unspecified; I25.10 Atherosclerotic heart disease of native coronary artery without angina pectoris; E11.9 Type 2 diabetes mellitus without complications; I25.2 Old myocardial infarction; I11.0 Hypertensive heart disease with heart failure; K59.00 Constipation, unspecified; B96.20 Unspecified Escherichia coli [E. coli] as the cause of diseases classified elsewhere; R65.20 Severe sepsis without septic shock; E78.5 Hyperlipidemia, unspecified; Z95.2 Presence of prosthetic heart valve; Z79.01 Long term (current) use of anticoagulants; Z79.4 Long term (current) use of insulin; Z95.5 Presence of coronary angioplasty implant and graft
CPT/HCPCS: 36415; 71045; 74177; 80048; 80053; 81001; 82550; 82962; 83605; 83690; 83735; 83880; 84484; 85025; 85610; 87040; 87077; 87086; 87186; 93005; 93010; 96365; 96375; 99284; J0360; J0696; J1815; J1940; J2270; J2405; Q9967

== ENCOUNTER → 2024-02-06 11:22 | Outpatient (CLI) | payer OTHER, SELFPAY ==
[2024-01-31 10:10] VITALS: BMI 44.7
[2024-02-06 11:45] LABS: Appearance Urine UA SL CLOUDY; Bilirubin Urine UA NEGATIVE (NEGATIVE); Color Urine UA YELLOW; Glucose Urine UA 2+ g/dL (Negative); Ketones Urine UA NEGATIVE (NEGATIVE); Leukocyte Esterase Urine UA NEGATIVE (NEGATIVE); Nitrite Urine UA NEGATIVE (Negative); Occult Blood Urine UA 2+ (Negative); Protein Urine UA NEGATIVE (Negative); Urobilinogen Urine UA 0.2 E.U./dL (0.2)
[2024-02-06 11:46] LABS: pH Urine UA 5.5 (4.5-8.0)
[2024-02-06 12:03] LABS: Bacteria Urine Many (>30); Culture Indicated Urine Specimen Cultured; RBC Urine 0-1/HPF (0-5/HPF); Squamous Epithelial Cell Urine 1-5 /HPF (0-5/HPF); Urine Volume 10mL (spun); WBC Urine 5-10/HPF (0-5/HPF)
== END ==
PROVIDERS: PCP Family Medicine; Referring Provider Family Medicine; Visit Provider Family Medicine
DX: R30.0 Dysuria (principal)
CPT/HCPCS: 81001; 87086

== ENCOUNTER 2024-03-21 23:44 | Emergency (ER) | payer OTHER, SELFPAY ==
[2024-01-31 10:10] VITALS: BMI 44.7
--- NOTE | 2024-03-22 00:05 | DI.RAD.S_ITS ---
PROCEDURE: XR CHEST 1V INDICATIONS: sob TECHNIQUE: One view of the chest was acquired. COMPARISON: [facility], CR, XR CHEST 1V, 01/16/2024, 2:26. [facility], CR, XR CHEST 1V, 12/19/2023, 4:43. FINDINGS: Surgical changes and devices: None. Lungs and pleura: Lungs are clear. No pleural effusions or pneumothorax. Mediastinum: Mediastinal contours appear normal. Heart size is normal. Bones and chest wall: No suspicious bony lesions. Overlying soft tissues appear unremarkable. IMPRESSION: No acute cardiopulmonary abnormality is seen. Approved by: Vipul Liu M.D. on 03/22/2024 at 0:45
--- NOTE | 2024-03-22 13:12 | PC.NURSE ---
EMR downtime began 03/21/241999 and continued throughout the patient's stay. Refer to paper documentation.
[2024-03-22 19:18] LABS: Troponin I 0.032 ng/mL (0.01-0.034)
[2024-03-22 19:19] LABS: Add Manual Diff / Slide Review NO; Basophils Absolute Auto 100 /uL (0-100); Eosinophils Absolute Auto 200 /uL (0-450); Eosinophils Percent Auto 1.6 % (2-4); Hemoglobin 10.3 g/dL (12.0-16.0); Lymphocytes Absolute Auto 1500 /uL (1100-4500); Lymphocytes Percent Auto 15.2 % (25-40); Mean Corpuscular HGB Conc 33.2 % (30-36); Mean Corpuscular Hemoglobin 26.3 PG (26-34); Mean Corpuscular Volume 79.3 fL (80-100); Monocytes Absolute Auto 900 /uL (0-900); Monocytes Percent Auto 8.6 % (3-14); Neutrophils Absolute Auto 7300 /uL (1500-7000); Neutrophils Percent Auto 73.6 % (50-75); Platelet Count 223 X10^3/uL (150-400); Red Blood Cell Count 3.91 X10^6/uL (4.0-5.2); Red Cell Distribution Width 15.6 % (11.6-14.8)
[2024-03-22 19:20] LABS: INR 1.3 (0.9-1.3); PTT Partial Thromboplastin Tim 35 SECONDS (25.1-36.5); Prothrombin Time 15.4 SECONDS (9.4-12.5)
[2024-03-22 19:21] LABS: Alanine Aminotransferase 11 IU/L (<35); Albumin 3.5 g/dL (3.5-5.0); Albumin Globulin Ratio 1.1 (1.0-2.8); Alkaline Phosphatase 67 U/L (38-126); Aspartate Aminotransferase 17 IU/L (14-36); BUN Creatinine Ratio 20.3 (6-22); Bilirubin Total 0.5 mg/dL (0.2-1.3); Blood Urea Nitrogen 27 mg/dL (7-17); Carbon Dioxide 28 mmol/L (22-32); Chloride 105 mmol/L (98-107); Estimated Glomerular Filt Rate 43 mL/min (>60); Globulin 3.2 g/dL (1.7-4.1); Glucose 184 mg/dL (80-110); HEMOLYSIS < 15 (0-50); Potassium 4.1 mmol/L (3.4-5.1); Sodium 135 mmol/L (137-145); Total Protein 6.7 g/dL (6.3-8.2); Troponin I 0.027 ng/mL (0.01-0.034)
== END 2024-03-22 03:45 | disposition home or self-care (01) ==
PROVIDERS: Emergency Provider Emergency Medicine; PCP Family Medicine
DX: R07.9 Chest pain, unspecified (principal)
CPT/HCPCS: 71045; 80053; 84484; 85025; 85610; 85730; 93005; 93010; 99284

== ENCOUNTER → 2024-04-29 16:16 | Outpatient (CLI) | payer OTHER, SELFPAY ==
[2024-01-31 10:10] VITALS: BMI 44.7
[2024-04-29 17:39] LABS: Add Manual Diff / Slide Review NO; Basophils Absolute Auto 100 /uL (0-100); Basophils Percent Auto 0.7 % (0-2); Eosinophils Absolute Auto 100 /uL (0-450); Eosinophils Percent Auto 1.1 % (2-4); Hematocrit 35.7 % (36-46); Hemoglobin 11.8 g/dL (12.0-16.0); Lymphocytes Absolute Auto 1500 /uL (1100-4500); Lymphocytes Percent Auto 17.3 % (25-40); Mean Corpuscular Hemoglobin 26.7 PG (26-34); Mean Corpuscular Volume 81.1 fL (80-100); Monocytes Absolute Auto 700 /uL (0-900); Monocytes Percent Auto 7.7 % (3-14); Neutrophils Absolute Auto 6500 /uL (1500-7000); Neutrophils Percent Auto 73.2 % (50-75); Platelet Count 209 X10^3/uL (150-400); Red Blood Cell Count 4.41 X10^6/uL (4.0-5.2); Red Cell Distribution Width 16.3 % (11.6-14.8); White Blood Cell Count 8.8 X10^3/uL (4.5-11.0)
[2024-04-29 18:21] LABS: Alanine Aminotransferase 15 IU/L (<35); Albumin 3.9 g/dL (3.5-5.0); Albumin Globulin Ratio 1.1 (1.0-2.8); Alkaline Phosphatase 66 U/L (38-126); Aspartate Aminotransferase 17 IU/L (14-36); Bilirubin Total 0.5 mg/dL (0.2-1.3); Blood Urea Nitrogen 22 mg/dL (7-17); Calcium 8.8 mg/dL (8.4-10.2); Carbon Dioxide 22 mmol/L (22-32); Chloride 103 mmol/L (98-107); Estimated Glomerular Filt Rate 50 mL/min (>60); Globulin 3.7 g/dL (1.7-4.1); Glucose 135 mg/dL (80-110); HEMOLYSIS < 15 (0-50); Potassium 4.2 mmol/L (3.4-5.1); Sodium 135 mmol/L (137-145); Total Protein 7.6 g/dL (6.3-8.2)
[2024-04-29 18:23] LABS: Hemoglobin A1C% w Est Avg Glu 6.8 % (4.0-6.0)
[2024-04-29 18:29] LABS: Creatinine Urine Random 124.66 mg/dL
[2024-04-29 18:34] LABS: Microalbumin Urine Random 5.5 mg/dL (0-1.6)
[2024-04-29 18:49] LABS: Ferritin 34 ng/mL (11-264)
== END ==
PROVIDERS: PCP Family Medicine; Referring Provider Family Medicine; Visit Provider Family Medicine
DX: N12 Tubulo-interstitial nephritis, not specified as acute or chronic (principal); E11.9 Type 2 diabetes mellitus without complications; N20.0 Calculus of kidney; I48.91 Unspecified atrial fibrillation; N13.30 Unspecified hydronephrosis; I10 Essential (primary) hypertension
CPT/HCPCS: 80053; 82043; 82570; 82728; 83036; 85025

== ENCOUNTER → 2024-06-30 14:46 | Outpatient (CLI) | payer OTHER, SELFPAY ==
[2024-01-31 10:10] VITALS: BMI 44.7
[2024-06-30 15:16] LABS: Add Manual Diff / Slide Review NO; Basophils Absolute Auto 100 /uL (0-100); Basophils Percent Auto 0.9 % (0-2); Eosinophils Absolute Auto 100 /uL (0-450); Eosinophils Percent Auto 1.2 % (2-4); Hematocrit 35.4 % (36-46); Lymphocytes Absolute Auto 1200 /uL (1100-4500); Lymphocytes Percent Auto 14.6 % (25-40); Mean Corpuscular HGB Conc 33.8 % (30-36); Mean Corpuscular Hemoglobin 27.8 PG (26-34); Mean Corpuscular Volume 82.2 fL (80-100); Monocytes Absolute Auto 600 /uL (0-900); Monocytes Percent Auto 7.7 % (3-14); Neutrophils Absolute Auto 6300 /uL (1500-7000); Neutrophils Percent Auto 75.6 % (50-75); Platelet Count 290 X10^3/uL (150-400); Red Blood Cell Count 4.31 X10^6/uL (4.0-5.2); Red Cell Distribution Width 15.1 % (11.6-14.8); White Blood Cell Count 8.3 X10^3/uL (4.5-11.0)
[2024-06-30 15:38] LABS: Alanine Aminotransferase 16 IU/L (<35); Albumin 3.8 g/dL (3.5-5.0); Albumin Globulin Ratio 1.1 (1.0-2.8); Alkaline Phosphatase 73 U/L (38-126); Aspartate Aminotransferase 17 IU/L (14-36); BUN Creatinine Ratio 18.2 (6-22); Bilirubin Total 0.4 mg/dL (0.2-1.3); Blood Urea Nitrogen 24 mg/dL (7-17); Calcium 9.3 mg/dL (8.4-10.2); Carbon Dioxide 30 mmol/L (22-32); Chloride 99 mmol/L (98-107); Estimated Glomerular Filt Rate 43 mL/min (>60); Globulin 3.4 g/dL (1.7-4.1); Glucose 174 mg/dL (80-110); HEMOLYSIS < 15 (0-50); Potassium 4.2 mmol/L (3.4-5.1); Sodium 135 mmol/L (137-145); Total Protein 7.2 g/dL (6.3-8.2)
[2024-06-30 16:08] LABS: Creatinine Urine Random 205.46 mg/dL
[2024-06-30 16:12] LABS: Microalbumin Urine Random 17.7 mg/dL (0-1.6)
[2024-06-30 16:15] LABS: Hemoglobin A1C% w Est Avg Glu 6.6 % (4.0-6.0)
== END ==
LOC: LAB 14:47
PROVIDERS: PCP Family Medicine; Referring Provider Family Medicine; Visit Provider Family Medicine
DX: E11.9 Type 2 diabetes mellitus without complications (principal); Z79.4 Long term (current) use of insulin; I10 Essential (primary) hypertension; I25.10 Atherosclerotic heart disease of native coronary artery without angina pectoris
CPT/HCPCS: 36415; 80053; 82043; 82570; 83036; 85025

== ENCOUNTER 2024-07-22 19:12 | Emergency (ER) | payer OTHER, SELFPAY ==
[2024-01-31 10:10] VITALS: BMI 44.7
[2024-07-22] VITALS (14 sets, daily range): BP systolic 141–183; BP diastolic 63–86; PULSE 73–89; RESP 13–28; TEMP 36.9; O2SAT 96–100; BMI 39.6
--- NOTE | 2024-07-22 19:38 | DI.RAD.S_ITS ---
PROCEDURE: XR CHEST 1V INDICATIONS: chest pain TECHNIQUE: One view of the chest was acquired. COMPARISON: [facility], CR, XR CHEST 1V, 03/22/2024, 0:14. [facility], CR, XR CHEST 1V, 01/16/2024, 2:26. FINDINGS: Surgical changes and devices: None. Lungs and pleura: Lungs are clear. No pleural effusions or pneumothorax. Mediastinum: Mediastinal contours appear normal. Heart size is normal. Bones and chest wall: No suspicious bony lesions. Overlying soft tissues appear unremarkable. IMPRESSION: No acute cardiopulmonary abnormality is seen. Dictated by: Miles Levin M.D. on 07/22/2024 at 20:06 Approved by: Miles Levin M.D. on 07/22/2024 at 20:06
--- NOTE | 2024-07-22 19:38 | EKG_ITS ---
[place] [id number] [place] [id number] Test Date: 2024-07-22 Pat Name: Anuja Parker Department: [facility] Room: Gender: Female University Manager: DARRIN : 1950 Requested By: Order Number: [id number] Reading MD: Measurements Intervals [place] Rate: 79 P: 79 [place]: 174 QRS: -7 QRSD: 98 T: 84 QT: 428 QTc: 490 Interpretive Statements Normal sinus rhythm Minimal voltage criteria for LVH, may be normal variant ( Eric product ) Cannot rule out Anterior infarct , age undetermined Electronically Signed On 07-23-2024 7:49:17 PDT by Oumar Mejia MD
--- NOTE | 2024-07-22 19:45 | ED_ITS ---
HPI - Chest Pain General Chief Complaint: Chest Pain Stated Complaint: sharp cp Time Seen by Provider: 07/22/24 19:44 Source: patient and EMS Mode of arrival: EMS Limitations: no limitations History of Present Illness HPI narrative: 73-year-old female history of CHF, paroxysmal atrial fibrillation on Eliquis, aortic stenosis status post TAVR, CAD, insulin-dependent diabetes presents with complaint of chest pain. Patient states felt somewhat similar to when she had prior episodes when she had MIs she has had cardiac stents at [facility] as well as in [employer] in the past she states both are greater than a year ago. Occurred while she was watching TV. States it lasted about an hour. She developed some sharp pains in her chest that lasted for about an hour and then resolved she did have a couple seconds of sharp pains here but have all resolved. She states the sharp pains here are not similar. Only radiated to her shoulder denies any diaphoresis felt a little short of breath when it was occurring, no nausea or vomiting no swelling in extremities. Patient states has not had any reoccurrence. States she is on Plavix and Eliquis. Does take medications including insulin Ozempic as well as statin. States allergic to sulfites. No tobacco, occasional alcohol, no recreational drugs. 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 Dr. Ruggiero is her primary care physician. Related Data Home Medications Medication Instructions Recorded Confirmed atorvastatin 80 mg tablet (Lipitor) 80 mg PO QPM 06/02/23 06/30/24 nystatin 100,000 unit/gram topical 1 applic topical TID rash 01/16/24 06/30/24 cream Previous Rx's Medication Instructions Recorded Parking Permit... #1 ea 09/08/20 pen needle, diabetic 29 gauge x #100 ea 03/09/2210/16 (Comfort EZ Pen Falcon) apixaban 5 mg tablet (Eliquis) 5 mg PO BID #180 tabs 10/19/23 blood sugar diagnostic (True #100 strips 10/30/23 Metrix Glucose Test Strip) clopidogrel 75 mg tablet 75 mg PO QAM #90 tabs 11/07/23 diltiazem HCl 120 mg 240 mg (2 x 120 mg) PO BID #180 11/07/23 capsule,extended release 12 hr caps metformin 500 mg tablet 1,000 mg (2 x 500 mg) PO BID #360 11/07/23 tabs metoprolol succinate 50 mg 50 mg PO DAILY #90 tabs 11/07/23 tablet,extended release 24 hr nitroglycerin 0.4 mg sublingual 0.4 mg sublingual Q5-15M PRN chest 11/07/23 tablet pain #90 tabs insulin glargine 100 unit/mL (3 40 unit (0.4 mL) SUBCUT QAM #15 mL 02/11/24 mL) subcutaneous pen (Lantus Solostar U-100 Insulin) semaglutide 1 mg/dose (4 mg/3 mL) 1 mg (0.75 mL) SUBCUT QWEEK #3 mL 04/29/24 subcutaneous pen injector (Ozempic) amiodarone 200 mg tablet 200 mg PO BID #180 tabs 06/09/24 Allergies Allergy/AdvReac Type Severity Reaction Status Date / Time Sulfa (Sulfonamide Allergy Mild RASH Verified 06/30/24 14:08 Antibiotics) Review of Systems Review of Systems ROS Unobtainable: All systems reviewed & are unremarkable except as noted in HPI and below Patient History Medical History Mild cognitive disorder Acute kidney injury Appendicitis with perforation Vertigo Sedentary lifestyle Stage II pressure ulcer of sacral region (~02/2023) Hyperlipidemia Thyroid nodule Incontinence Breast screening Abnormal mammogram of left breast NSTEMI (non-ST elevated myocardial infarction) (09/2018) Recent heart attack Coronary artery disease Osteopenia (05/20/14) Knee osteoarthritis Hypertension (~2011) Diabetes mellitus (~2011) Rheumatoid arthritis Colon polyps (08/31/14) Surgical History History of bilateral knee replacement (2009) History of colonoscopy with polypectomy (08/31/14) History of left cataract surgery (03/23/15) History of right cataract surgery (04/06/15) Anesthesia History of knee replacement History of knee replacement Status post delivery (12/21/78) Family History Brother Drowning Father Heart disease Mother Diabetes mellitus Sister Bone cancer Sister Bone cancer Social History marital status: household members: family and children Smoking Status: Never smoker alcohol intake: current substance use type: does not use Smoking Status: Never smoker alcohol intake frequency: holidays/special occasions only Alcohol type: hard liquor Substance Use Type: does not use Exam Narrative Exam Narrative: GENERAL: Alert and oriented x three, well-appearing elderly female in mild distress. HEENT: Head normocephalic, atraumatic, EOMI, pupils reactive, face symmetric, moist mucous membranes NECK: Supple, full range of motion CARDIOVASCULAR: Regular rate and rhythm without murmurs, rubs or gallops. No JVD. No edema bilateral lower extremities. RESPIRATORY: Breath sounds equal bilaterally, no wheezes rales or rhonchi. No tachypnea or accessory muscle use. ABDOMEN: Soft, nontender. Normoactive bowel sounds all 4 quadrants. No guarding or rebound, rigidity, no mass : No CVA tenderness EXTREMITIES: Normal range of motion, no clubbing or edema. Neurovascularly intact NEUROLOGICAL: Cranial nerves II through XII grossly intact. Moving all extremities SKIN: Warm, dry, no petechiae, no rashes or lesions. Initial Vital Signs Initial Vital Signs: Vital Signs Temperature 98.5 F 07/22/24 19:18 Pulse Rate 89 07/22/24 19:18 Respiratory Rate 16 07/22/24 19:18 Blood Pressure 146/63 H 07/22/24 19:18 Pulse Oximetry 96 07/22/24 19:18 Oxygen Delivery Method Room Air 07/22/24 19:18 Course Orders Ordered: ED Orders 07/22/24 19:38 XR chest 1V Stat EKG-12 Lead Stat 07/22/24 21:23 Trop I [Troponin I] Stat 07/22/24 23:26 EKG-12 Lead Stat Discontinued Medications Aspirin (Aspirin 81 Mg Chew Tab) 324 mg PO NOW ONE Stop: 07/22/24 19:39 Last Admin: 07/22/24 20:41 Dose: Not Given Documented By: MARILEE Vital Signs Vital signs: Vital Signs - 8 hr 07/22/24 20:30 07/22/24 20:30 07/22/24 21:02 Pulse Rate 73 87 Respiratory Rate 14 28 H Blood Pressure 154/72 H Pulse Oximetry 99 97 Oxygen Delivery Method Room Air 07/22/24 21:30 07/22/24 22:00 07/22/24 22:29 Pulse Rate 77 78 80 Respiratory Rate 19 16 Blood Pressure Pulse Oximetry 98 99 99 Oxygen Delivery Method 07/22/24 22:29 07/22/24 22:30 07/22/24 22:31 Pulse Rate 80 79 Respiratory Rate Blood Pressure 183/83 H Pulse Oximetry 99 99 Oxygen Delivery Method Room Air 07/22/24 22:31 07/22/24 23:00 07/22/24 23:01 Pulse Rate 77 Respiratory Rate 13 Blood Pressure 182/86 H 172/75 H Pulse Oximetry 99 Oxygen Delivery Method 07/22/24 23:01 07/22/24 23:30 07/22/24 23:31 Pulse Rate 78 76 76 Respiratory Rate 15 21 Blood Pressure Pulse Oximetry 99 99 99 Oxygen Delivery Method Room Air 07/22/24 23:31 07/23/24 00:00 07/23/24 00:01 Pulse Rate 77 79 Respiratory Rate 19 18 Blood Pressure 150/75 H Pulse Oximetry 98 99 Oxygen Delivery Method Room Air Room Air 07/23/24 00:01 07/23/24 00:30 07/23/24 00:30 Pulse Rate 77 Respiratory Rate 21 Blood Pressure 159/70 H 162/71 H Pulse Oximetry 99 Oxygen Delivery Method 07/23/24 01:00 Pulse Rate 76 Respiratory Rate 24 Blood Pressure Pulse Oximetry 99 Oxygen Delivery Method Room Air MDM - Chest Pain Lab Data 07/22/24 19:10 07/22/24 19:10 Labs: Lab Results 07/22/24 07/22/24 Range/Units 19:10 21:23 WBC 9.8 (4.5-11.0) X10^3/uL RBC 4.19 (4.0-5.2) X10^6/uL Hgb 11.5 L (12.0-16.0) g/dL Hct 34.9 L (36-46) % MCV 83.3 (80-100) fL MCH 27.5 (26-34) PG MCHC 33.0 (30-36) % RDW 14.8 (11.6-14.8) % Plt Count 290 (150-400) X10^3/uL Neut % (Auto) 70.0 (50-75) % Lymph % (Auto) 19.4 L (25-40) % [place] % (Auto) 8.0 (3-14) % Eos % (Auto) 1.8 L (2-4) % Baso % (Auto) 0.8 (0-2) % Neut # (Auto) 6900 (0375-2655) /uL Lymph # (Auto) 1900 (1758-6126) /uL [place] # (Auto) 800 (0-900) /uL Eos # (Auto) 200 (0-450) /uL Baso # (Auto) 100 (0-100) /uL PT 12.2 (9.4-12.5) SECONDS INR 1.1 (0.9-1.3) APTT 34 (25.1-36.5) SECONDS Sodium 139 (137-145) mmol/L Potassium 3.7 (3.4-5.1) mmol/L Chloride 104 (98-107) mmol/L Carbon Dioxide 25 (22-32) mmol/L BUN 19 H (7-17) mg/dL Creatinine 1.22 H (0.52-1.04) mg/dL Estimated GFR 47 L (>60) mL/min BUN/Creatinine Ratio 15.6 (6-22) Glucose 182 H (80-110) mg/dL Calcium 9.2 (8.4-10.2) mg/dL Magnesium 1.5 L (1.6-2.3) mg/dL Total Bilirubin 0.5 (0.2-1.3) mg/dL AST 20 (14-36) IU/L ALT 16 (<35) IU/L Alkaline Phosphatase 74 (38-126) U/L Total Creatine Kinase 55 (30-135) U/L Troponin I < 0.012 < 0.012 (0.01-0.034) ng/mL NT-Pro-B Natriuret Pep 1920 H (<125) pg/mL Total Protein 7.7 (6.3-8.2) g/dL Albumin 4.2 (3.5-5.0) g/dL Globulin 3.5 (1.7-4.1) g/dL Albumin/Globulin Ratio 1.2 (1.0-2.8) Lipase 220 (23-300) U/L Imaging Data Chest x-ray: Radiologist's Impression: Anuja Parekr??73??F??1950 ? Allergy/Adv: Sulfa (Sulfonamide Antibiotics) (More??) Close Chest X-Ray (Signed) Miles Levin - 07/22/24 Chest X-Ray (Signed) Vipul Liu - 03/22/24 XRay Report 03/21/24 Telemetry Strips 03/21/24 Telemetry Strips 03/21/24 Telemetry Strips 01/16/24 Chest X-Ray (Signed) Santi Kaplan - 01/16/24 Abdomen/Pelvis CT (Signed) Elodia Dumont - 01/16/24 Shoulder X-Ray (Signed) Narayan Silver - 01/04/[address] (Signed) Narayan Silver - 01/04/[address] (Signed) Narayan Silver - 01/04/24 Wrist X-Ray (Signed) Narayan Silver - 01/04/24 Telemetry Strips 12/19/23 Chest X-Ray (Signed) Nati Gil - 12/19/23 Toe X-Ray (Signed) Cindi Reese - 12/10/23 Chest X-Ray (Signed) Marvel Roa - 11/16/23 Radiology Report (Cancelled) Светлана Rosario - 11/15/23 Myocardial Perfusion Scan Nuc Med (Signed) Светлана Rosario - 11/15/23 Echocardiogram Ultrasound (Signed) Alexus Moran - 11/11/23 Telemetry Strips 11/10/23 Telemetry Strips 11/10/23 Chest X-Ray (Signed) Nati Gil - 11/10/23 Chest X-Ray (Signed) Cindi Reese - 10/23/23 Telemetry Strips 08/29/23 Renal Ultrasound (Signed) Santi Kaplan - 08/28/23 Chest X-Ray (Signed) Cindi Reese - 08/27/23 Abdomen/Pelvis CT (Signed) Marvel Roa - 06/17/23 Chest X-Ray (Signed) Marvel Roa - 06/16/23 Telemetry Strips 06/08/23 Chest X-Ray (Signed) Narayan Silver - 06/08/23 Echocardiogram Ultrasound (Signed) Marquis Tobin - 06/04/23 Chest CTA (Signed) Karime Santizo - 06/04/23 Chest X-Ray (Signed) Elodia Dumont - 06/04/23 Telemetry Strips 06/02/23 Telemetry Strips 06/02/23 Telemetry Strips 06/02/23 Abdomen/Pelvis CT (Signed) Lefty Servin - 06/02/23 Mammogram Diagnostic (Signed) Anupam Scott - 05/30/[address] (Signed) Marvel Roa - 03/22/22 Chest X-Ray (Signed) Cindi Reese - 03/22/22 Outside DI 12/12/21 Carotid Doppler Study (Signed) Anupam Scott - 11/03/[address] (Signed) Lexx Hardin - 01/07/21 Needle Aspiration Ultrasound (Signed) Ciara Miranda - 12/28/20 DI Result CC 12/08/20 DI Result CC 12/07/20 Thyroid Ultrasound (Signed) Vipul Liu - 11/23/20 DI Result CC 11/08/20 DI Result CC 11/08/20 Echocardiogram Ultrasound (Signed) Marquis Tobin - 09/01/20 Mammogram Diagnostic (Signed) Vipul Liu - 08/12/20 Mammogram Diagnostic (Signed) Karime Santizo - 12/31/19 Echocardiogram Ultrasound (Signed) Светлана Rosario - 10/24/19 Brain MRI (Signed) Nati Gil - 10/17/19 Carotid Doppler Study (Signed) Narayan Silver - 10/10/[address] (Signed) Narayan Silver - 09/24/19 Chest X-Ray (Signed) Narayan Silver - 09/24/19 Bone Densitometry 08/15/19 DEXA Result 08/15/19 Mammogram Diagnostic (Signed) Yon Snowden - 05/15/[address] [address] XRay Report Signed Patient: Anuja Parker MR#: [id number] : 1950 Acct:[id number] Age/Sex: 73 / F Date of Service: 07/22/24 Loc: ED Accession Number: [id number] Procedure: XR chest 1V Ordering Provider: Mickie Garibay D.O. PROCEDURE: XR CHEST 1V INDICATIONS: chest pain TECHNIQUE: One view of the chest was acquired. COMPARISON: [facility], CR, XR CHEST 1V, 03/22/2024, 0:14. [facility], CR, XR CHEST 1V, 01/16/2024, 2:26. FINDINGS: Surgical changes and devices: None. Lungs and pleura: Lungs are clear. No pleural effusions or pneumothorax. Mediastinum: Mediastinal contours appear normal. Heart size is normal. Bones and chest wall: No suspicious bony lesions. Overlying soft tissues appear unremarkable. IMPRESSION: No acute cardiopulmonary abnormality is seen. Dictated by: Miles Levin M.D. on 07/22/2024 at 20:06 Approved by: Miles Levin M.D. on 07/22/2024 at 20:06 [facility] Narrative Medical decision making narrative: Patient presents with complaint of chest pain has had prior ST elevated MIs in the past and has coronary artery stents. Patient received aspirin 324 mg EN route with EMS. Chest pain had resolved prior to arrival. Labs show white count of 9.8 hemoglobin 11.5 looks fairly consistent with priors, platelets are 290, coags are negative, creatinine is 1.22 consistent with prior from 06/30/2024 and April of 2024. Patient's sodium is 139 potassium 3.7 chloride 104 CO2 is 25 BUN 19 Mag is slightly low at 1.5 calcium is 9.2 LFTs are negative troponins less than 0.012 with a repeat of less than 0.012 and a BNP of 1920, this is actually improved from the 2 prior from December and January of 2024. Chest x-ray shows no acute change. EKG shows sinus rhythm rate of 74 PA 192 QRS of 96 QTC 481 appears similar to prior from EMS as well as prior from 03/21/2024. Patient had repeat EKG here in the department which does not show any major ST changes per she ate in. Discussed with patient troponins are negative x2 repeat EKGs showed no acute change but patient does have risk factors for coronary artery disease in his had prior MIs and stents placed. Offered observation but patient defers and would like to discharge home. Discussed return precautions. Asked her to reach out in to set up follow up. Discharge Plan Departure Patient Disposition: Home Clinical Impression: Chest pain Instructions: DI for Chest Pain Activity Restrictions/Additional Instructions: Please follow up with your cardiology team, call tomorrow to set up a follow up appointment. You do have risk factors for cardiac events so if you have recurrent symptoms please return to the emergency department. Also please return if you are having new shortness of breath, lightheadedness or passing out, persistent vomiting, diaphoresis, new swelling of your extremities or other new or concerning changes. Prescriptions: No Action (DME) pen needle, diabetic [Comfort EZ Pen Falcon] 29 gauge x 1/2 needle See Rx Instructions .ROUTE .MEDSUPPLY Qty: 100 3RF Rx Instructions: use to check blood glucose 3x per day (DME) True Metrix Glucose Test Strip Strip See Rx Instructions .ROUTE .COMPLEX Qty: 100 3RF Dose Instruction: USE TO TEST BLOOD SUGAR DAILY Rx Instructions: USE TO TEST BLOOD SUGAR DAILY insulin glargine [Lantus Solostar U-100 Insulin] 100 unit/mL (3 mL) insulin pen 40 unit SUBCUT QAM Qty: 15 3RF amiodarone 200 mg tablet 200 mg PO BID Qty: 180 1RF Rx Instructions: Hold while on fluconazole (DME) Parking Permit... See Rx Instructions .Route .MEDSUPPLY Qty: 1 0RF Rx Instructions: Patient meets criteria for permanent parking placard. Eliquis 5 mg tablet 5 mg PO BID Qty: 180 2RF metoprolol succinate 50 mg tablet extended release 24 hr 50 mg PO DAILY Qty: 90 3RF diltiazem HCl 120 mg capsule,extended release 12 hr 240 mg PO BID Qty: 180 3RF clopidogrel 75 mg tablet 75 mg PO QAM Qty: 90 3RF metformin 500 mg tablet 1,000 mg PO BID Qty: 360 3RF Rx Instructions: TAKE TWO TABLETS BY MOUTH TWICE DAILY nitroglycerin 0.4 mg tablet, sublingual 0.4 mg SL Q5-15M PRN (Reason: chest pain) Qty: 90 11RF Patient Comments: patient has prescription but has not taken yet Rx Instructions: until response; do not exceed 3 doses per episode Ozempic 1 mg/dose (4 mg/3 mL) pen injector 1 mg SUBCUT QWEEK Qty: 3 1RF Rx Instructions: start taking after 1 month of 0.5mg ozempic atorvastatin [Lipitor] 80 mg tablet 80 mg PO QPM nystatin 100,000 unit/gram cream 1 applic topical TID Referrals: Chino Ruggiero MD [Primary Care Provider] - Светлана Rosario MD [Physician] - Stand Alone Forms: Patient Portal/API
[2024-07-22 19:48] LABS: Add Manual Diff / Slide Review NO; Basophils Absolute Auto 100 /uL (0-100); Basophils Percent Auto 0.8 % (0-2); Eosinophils Absolute Auto 200 /uL (0-450); Eosinophils Percent Auto 1.8 % (2-4); Hematocrit 34.9 % (36-46); Hemoglobin 11.5 g/dL (12.0-16.0); Lymphocytes Absolute Auto 1900 /uL (1100-4500); Lymphocytes Percent Auto 19.4 % (25-40); Mean Corpuscular Hemoglobin 27.5 PG (26-34); Mean Corpuscular Volume 83.3 fL (80-100); Monocytes Absolute Auto 800 /uL (0-900); Neutrophils Absolute Auto 6900 /uL (1500-7000); Platelet Count 290 X10^3/uL (150-400); Red Blood Cell Count 4.19 X10^6/uL (4.0-5.2); Red Cell Distribution Width 14.8 % (11.6-14.8); White Blood Cell Count 9.8 X10^3/uL (4.5-11.0)
[2024-07-22 19:49] LABS: INR 1.1 (0.9-1.3); Prothrombin Time 12.2 SECONDS (9.4-12.5)
[2024-07-22 19:51] LABS: PTT Partial Thromboplastin Tim 34 SECONDS (25.1-36.5)
[2024-07-22 19:53] LABS: Alanine Aminotransferase 16 IU/L (<35); Albumin 4.2 g/dL (3.5-5.0); Albumin Globulin Ratio 1.2 (1.0-2.8); Alkaline Phosphatase 74 U/L (38-126); Aspartate Aminotransferase 20 IU/L (14-36); BUN Creatinine Ratio 15.6 (6-22); Bilirubin Total 0.5 mg/dL (0.2-1.3); Blood Urea Nitrogen 19 mg/dL (7-17); Calcium 9.2 mg/dL (8.4-10.2); Carbon Dioxide 25 mmol/L (22-32); Chloride 104 mmol/L (98-107); Creatine Kinase 55 U/L (30-135); Estimated Glomerular Filt Rate 47 mL/min (>60); Globulin 3.5 g/dL (1.7-4.1); Glucose 182 mg/dL (80-110); HEMOLYSIS < 15 (0-50); Lipase 220 U/L (23-300); Magnesium 1.5 mg/dL (1.6-2.3); Potassium 3.7 mmol/L (3.4-5.1); Sodium 139 mmol/L (137-145); Total Protein 7.7 g/dL (6.3-8.2)
[2024-07-22 20:04] LABS: NT-proBNP (BNP-Adult 18+) 1920 pg/mL (<125); Troponin I < 0.012 ng/mL (0.01-0.034)
[2024-07-22 22:41] LABS: Troponin I < 0.012 ng/mL (0.01-0.034)
--- NOTE | 2024-07-22 23:26 | EKG_ITS ---
[facility] [address], [place] [address] Test Date: 2024-07-22 Pat Name: Anuja Parker Department: 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
[2024-07-23] VITALS: PULSE 77; RESP 19; O2SAT 98
[2024-07-23 00:01] VITALS: BP 159/70; PULSE 79; RESP 18; O2SAT 99
[2024-07-23 00:30] VITALS: BP 162/71; PULSE 77; RESP 21; O2SAT 99
[2024-07-23 01:00] VITALS: PULSE 76; RESP 24; O2SAT 99
== END 2024-07-23 01:10 | disposition home or self-care (01) ==
PROVIDERS: Emergency Provider Emergency Medicine; PCP Family Medicine
DX: R07.9 Chest pain, unspecified (principal); I25.2 Old myocardial infarction; Z95.5 Presence of coronary angioplasty implant and graft; I50.9 Heart failure, unspecified; I48.0 Paroxysmal atrial fibrillation; Z79.01 Long term (current) use of anticoagulants
CPT/HCPCS: 36415; 71045; 80053; 82550; 83690; 83735; 83880; 84484; 85025; 85610; 85730; 93005; 99283; 99284

== ENCOUNTER 2024-07-23 17:21 | Observation (INO) | payer OTHER, SELFPAY ==
[2024-01-31 10:10] VITALS: BMI 44.7
[2024-07-23] VITALS (14 sets, daily range): BP systolic 132–176; BP diastolic 63–78; PULSE 67–72; RESP 13–28; TEMP 36.6–37; O2SAT 98–100; BMI 39.6
--- NOTE | 2024-07-23 17:30 | EKG_ITS ---
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 sinus, baseline artifact makes identifying P waves impossible Prolonged QT Electronically Signed On 07-24-2024 7:55:19 PDT by Oumar Mejia MD
--- NOTE | 2024-07-23 17:41 | DI.RAD.S_ITS ---
PROCEDURE: XR CHEST 1V INDICATIONS: chest pain TECHNIQUE: One view of the chest was acquired. COMPARISON: [facility], CR, XR CHEST 1V, 07/22/2024, 19:50. [facility], CR, XR CHEST 1V, 03/22/2024, 0:14. FINDINGS: Surgical changes and devices: None. Lungs and pleura: Low lung volumes. No dense airspace disease or pleural effusions. Mildly prominent interstitium. Mediastinum: Borderline enlarged heart, similar to prior Bones and chest wall: Degenerative changes IMPRESSION: Low lung volumes on limited single view radiograph, no acute consolidation or pleural effusion. Mildly prominent tissue and could represent mild edema or atypical infection. Dictated by: Mika Hester M.D. on 07/23/2024 at 18:30 Approved by: Mika Hester M.D. on 07/23/2024 at 18:31
--- NOTE | 2024-07-23 18:03 | ED_ITS ---
HPI - Chest Pain General Chief Complaint: Chest Pain Stated Complaint: Chest Pain Time Seen by Provider: 07/23/24 17:45 Source: patient and EMS Mode of arrival: EMS Limitations: no limitations History of Present Illness HPI narrative: This is 73-year-old female history of CHF, paroxysmal atrial fibrillation on Eliquis, aortic stenosis status post TAVR, CAD, insulin-dependent diabetes with complaint of chest pain. Patient was seen yesterday for similar episode. She would recurrence today she states it lasted for about 10 minutes substernal radiated to the left axilla without radiation elsewhere. No diaphoresis but did feel short of breath during the episode no nausea or vomiting, no other GI or urinary symptoms no cold cough congestion. No swelling in extremities. States she took her regular home medications yesterday she had not had her morning medications yet today but did have 324 mg of aspirin EN route with EMS. She has not had any nitrates. Patient did call and set up follow up with Dr. 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 Rosario. Related Data Home Medications Medication Instructions Recorded Confirmed atorvastatin 80 mg tablet (Lipitor) 80 mg PO QPM 06/02/23 06/30/24 nystatin 100,000 unit/gram topical 1 applic topical TID rash 01/16/24 06/30/24 cream Previous Rx's Medication Instructions Recorded Parking Permit... #1 ea 09/08/20 pen needle, diabetic 29 gauge x #100 ea 03/09/2210/16 (Comfort EZ Pen [place]) apixaban 5 mg tablet (Eliquis) 5 mg PO BID #180 tabs 10/19/23 blood sugar diagnostic (True #100 strips 10/30/23 Metrix Glucose Test Strip) clopidogrel 75 mg tablet 75 mg PO QAM #90 tabs 11/07/23 diltiazem HCl 120 mg 240 mg (2 x 120 mg) PO BID #180 11/07/23 capsule,extended release 12 hr caps metformin 500 mg tablet 1,000 mg (2 x 500 mg) PO BID #360 11/07/23 tabs metoprolol succinate 50 mg 50 mg PO DAILY #90 tabs 11/07/23 tablet,extended release 24 hr nitroglycerin 0.4 mg sublingual 0.4 mg sublingual Q5-15M PRN chest 11/07/23 tablet pain #90 tabs insulin glargine 100 unit/mL (3 40 unit (0.4 mL) SUBCUT QAM #15 mL 02/11/24 mL) subcutaneous pen (Lantus Solostar U-100 Insulin) semaglutide 1 mg/dose (4 mg/3 mL) 1 mg (0.75 mL) SUBCUT QWEEK #3 mL 04/29/24 subcutaneous pen injector (Ozempic) amiodarone 200 mg tablet 200 mg PO BID #180 tabs 06/09/24 Allergies Allergy/AdvReac Type Severity Reaction Status Date / Time Sulfa (Sulfonamide Allergy Mild RASH Verified 07/23/24 17:32 Antibiotics) Review of Systems Review of Systems ROS Unobtainable: All systems reviewed & are unremarkable except as noted in HPI and below Patient History Medical History Mild cognitive disorder Acute kidney injury Appendicitis with perforation Vertigo Sedentary lifestyle Stage II pressure ulcer of sacral region (~02/2023) Hyperlipidemia Thyroid nodule Incontinence Breast screening Abnormal mammogram of left breast NSTEMI (non-ST elevated myocardial infarction) (09/2018) Recent heart attack Coronary artery disease Osteopenia (05/20/14) Knee osteoarthritis Hypertension (~2011) Diabetes mellitus (~2011) Rheumatoid arthritis Colon polyps (08/31/14) Surgical History History of bilateral knee replacement (2009) History of colonoscopy with polypectomy (08/31/14) History of left cataract surgery (03/23/15) History of right cataract surgery (04/06/15) Anesthesia History of knee replacement History of knee replacement Status post delivery (12/21/78) Family History Brother Drowning Father Heart disease Mother Diabetes mellitus Sister Bone cancer Sister Bone cancer Social History marital status: household members: family and children Smoking Status: Never smoker alcohol intake: current substance use type: does not use Smoking Status: Never smoker alcohol intake frequency: holidays/special occasions only Alcohol type: hard liquor Substance Use Type: does not use Exam Narrative Exam Narrative: GENERAL: Alert and oriented x three, distress HEENT: Head normocephalic, atraumatic, EOMI, pupils reactive, face symmetric, moist mucous membranes NECK: Supple, full range of motion CARDIOVASCULAR: Regular rate and rhythm without murmurs, rubs or gallops. No JVD. Edema extremities. RESPIRATORY: Breath sounds equal bilaterally, no wheezes rales or rhonchi. ABDOMEN: Soft, nontender. Normoactive bowel sounds all 4 quadrants. No guarding or rebound, rigidity, no mass : No CVA tenderness EXTREMITIES: Normal range of motion, no clubbing or edema. Neurovascularly intact NEUROLOGICAL: Cranial nerves II through XII grossly intact. Moving all extremities SKIN: Warm, dry, no petechiae, no rashes or lesions. Initial Vital Signs Initial Vital Signs: Vital Signs Temperature 98.6 F 07/23/24 17:26 Pulse Rate 69 07/23/24 17:26 Respiratory Rate 18 07/23/24 17:26 Blood Pressure 151/66 H 07/23/24 17:26 Pulse Oximetry 100 07/23/24 17:26 Oxygen Delivery Method Room Air 07/23/24 17:26 Course Orders Ordered: ED Orders 07/23/24 17:25 EKG-12 Lead Stat 07/23/24 17:41 XR chest 1V Stat Complete Blood Count AUTO DIFF Stat Comprehensive Metabolic Panel Stat Lipase Stat Magnesium Stat NT-proBNP (BNP-Adult 18+) Stat PTT Partial Thromboplastin López Stat Prothrombin Time INR Stat Troponin & CK Cardiac Panel Stat EKG-12 Lead Stat 07/23/24 19:40 Trop I [Troponin I] Stat Discontinued Medications Aspirin (Aspirin 81 Mg Chew Tab) 324 mg PO NOW ONE Stop: 07/23/24 17:42 Last Admin: 07/23/24 18:06 Dose: Not Given Documented By: LISANDRA Vital Signs Vital signs: Vital Signs - 8 hr 07/23/24 17:26 07/23/24 17:31 07/23/24 18:00 Temperature 98.6 F Pulse Rate 69 67 68 Respiratory Rate 18 14 Blood Pressure 151/66 H Pulse Oximetry 100 99 100 Oxygen Delivery Method Room Air 07/23/24 18:01 07/23/24 18:01 07/23/24 18:30 Temperature Pulse Rate 68 Respiratory Rate Blood Pressure 132/63 147/65 H Pulse Oximetry 100 Oxygen Delivery Method 07/23/24 18:30 07/23/24 19:00 07/23/24 19:00 Temperature Pulse Rate 70 69 Respiratory Rate 20 13 Blood Pressure 151/67 H Pulse Oximetry 99 98 Oxygen Delivery Method Room Air 07/23/24 19:30 07/23/24 19:30 07/23/24 20:00 Temperature Pulse Rate 72 71 Respiratory Rate 15 19 Blood Pressure 145/75 H Pulse Oximetry 98 99 Oxygen Delivery Method 07/23/24 20:00 07/23/24 20:30 07/23/24 20:31 Temperature Pulse Rate 70 Respiratory Rate 28 H Blood Pressure 176/73 H 153/69 H Pulse Oximetry 99 Oxygen Delivery Method 07/23/24 20:31 07/23/24 21:00 07/23/24 21:01 Temperature Pulse Rate 69 70 Respiratory Rate 28 H 17 Blood Pressure 161/67 H Pulse Oximetry 100 99 Oxygen Delivery Method 07/23/24 21:01 Temperature Pulse Rate 69 Respiratory Rate 17 Blood Pressure Pulse Oximetry 99 Oxygen Delivery Method MDM - Chest Pain Lab Data 07/23/24 17:41 07/23/24 17:41 Labs: Lab Results 07/23/24 07/23/24 07/23/24 Range/Units 17:40 17:41 19:40 WBC 7.4 (4.5-11.0) X10^3/uL RBC 4.01 (4.0-5.2) X10^6/uL Hgb 11.3 L (12.0-16.0) g/dL Hct 33.3 L (36-46) % MCV 83.0 (80-100) fL MCH 28.1 (26-34) PG MCHC 33.8 (30-36) % RDW 14.7 (11.6-14.8) % Plt Count 262 (150-400) X10^3/uL Neut % (Auto) 71.7 (50-75) % Lymph % (Auto) 17.4 L (25-40) % Nash % (Auto) 7.7 (3-14) % Eos % (Auto) 2.3 (2-4) % Baso % (Auto) 0.9 (0-2) % Neut # (Auto) 5300 (5421-4008) /uL Lymph # (Auto) 1300 (4385-4341) /uL Nash # (Auto) 600 (0-900) /uL Eos # (Auto) 200 (0-450) /uL Baso # (Auto) 100 (0-100) /uL PT 15.7 H (9.4-12.5) SECONDS INR 1.4 H (0.9-1.3) APTT 37 H (25.1-36.5) SECONDS Sodium 138 (137-145) mmol/L Potassium 4.0 (3.4-5.1) mmol/L Chloride 104 (98-107) mmol/L Carbon Dioxide 27 (22-32) mmol/L BUN 22 H (7-17) mg/dL Creatinine 1.51 H (0.52-1.04) mg/dL Estimated GFR 37 L (>60) mL/min BUN/Creatinine Ratio 14.6 (6-22) Glucose 154 H (80-110) mg/dL Calcium 9.2 (8.4-10.2) mg/dL Magnesium 1.6 (1.6-2.3) mg/dL Total Bilirubin 0.6 (0.2-1.3) mg/dL AST 23 (14-36) IU/L ALT 14 (<35) IU/L Alkaline Phosphatase 60 (38-126) U/L Total Creatine Kinase Cancelled 66 Troponin I Cancelled < 0.012 < 0.012 NT-Pro-B Natriuret Pep 2630 H (<125) pg/mL Total Protein 7.1 (6.3-8.2) g/dL Albumin 3.8 (3.5-5.0) g/dL Globulin 3.3 (1.7-4.1) g/dL Albumin/Globulin Ratio 1.2 (1.0-2.8) Lipase 127 (23-300) U/L Imaging Data Chest x-ray: Radiologist's Impression: [address] [address] XRay Report Signed Patient: Anuja Parker MR#: [id number] : 1950 Acct:[id number] Age/Sex: 73 / F Date of Service: 07/23/24 Loc: ED Accession Number: [id number] Procedure: XR chest 1V Ordering Provider: Tejas Jameson MD PROCEDURE: XR CHEST 1V INDICATIONS: chest pain TECHNIQUE: One view of the chest was acquired. COMPARISON: [facility], CR, XR CHEST 1V, 07/22/2024, 19:50. [facility], CR, XR CHEST 1V, 03/22/2024, 0:14. FINDINGS: Surgical changes and devices: None. Lungs and pleura: Low lung volumes. No dense airspace disease or pleural effusions. Mildly prominent interstitium. Mediastinum: Borderline enlarged heart, similar to prior Bones and chest wall: Degenerative changes IMPRESSION: Low lung volumes on limited single view radiograph, no acute consolidation or pleural effusion. Mildly prominent tissue and could represent mild edema or atypical infection. Dictated by: Mika Hester M.D. on 07/23/2024 at 18:30 Approved by: Mika Hester M.D. on 07/23/2024 at 18:31 ECG Data Attestation: I personally reviewed and interpreted this ECG as follows: Prior ECG tracings: available for review Interpretation: Sinus rhythm rate of 69 VA 98 QRS 497. Patient's QRS is upright in 2 3 and AVF not yesterday there has no other ST elevation depression appreciated. EKG 2. Shows normal sinus rhythm rate of 71 VA 200 QRS of 98 QTC 44, appears similar to prior from earlier today. MDM Narrative Medical decision making narrative: 73-year-old female seen yesterday for chest pain, had recurrence today lasted 10 minutes. Patient states was slightly longer than yesterday's episode. Has not had any reoccurrence. Does have known cardiac history. EKG shows crusted upright in 2,3,AVF which is changed from yesterday no new ST elevation or depression. Repeat EKG today shows additional dynamic changes. Initial troponin is negative at less than 0.012. Repeat troponin is 0.012 today. Labs show white count of 7.4 hemoglobin 11.3 was 11.5 yesterday platelets are 262. INR is 1.4. Sodium 138, potassium 4 chloride of 104 CO2 20 BUN 22 creatinine 0.51, glucose of 154 LFTs negative troponins less 0.012, BNP is 2630. Chest x-ray, low lung volumes on limited single view no acute consolidation or pleural effusion mildly prominent tissue could represent mild edema or atypical infection. Consult with cardiology. Dr. Drummond. Reviewed patient's findings, troponins have been negative, patient does not have new ST elevation or depression but QRS is flipped upright in 3 and AVF which is a change from yesterday does not appear to be dynamic between EKGs today. Has not had any persistent pain here in the department. Last stress test was in November of 2023 and last echo in our EMR is from May of 2023. After discussion with Dr. Hendrickson you would like to keep for observation obtain echo monitor patient overnight dependent on symptoms would maybe get stress testing tomorrow. Spoke with Dr. Louise, mayra hospitalist: accepts for observation with tele. Reviewed findings conditions from Cardiology. They do ask if we can give 40 mg Lasix here in the department. Discharge Plan Departure Patient Disposition: Admitted as Observation Clinical Impression: Chest pain Admit Date/Time: 07/23/24 21:25 Admit Provider: Omid Louise
--- NOTE | 2024-07-23 18:05 | PC.NURSE ---
Cp that is similar to yesterday visit. Pt states it came on and is now resolved. Pt states this worried her bc of her DC history
[2024-07-23 18:30] LABS: INR 1.4 (0.9-1.3); Prothrombin Time 15.7 SECONDS (9.4-12.5)
[2024-07-23 18:32] LABS: PTT Partial Thromboplastin Tim 37 SECONDS (25.1-36.5)
[2024-07-23 18:43] LABS: Alanine Aminotransferase 14 IU/L (<35); Albumin 3.8 g/dL (3.5-5.0); Albumin Globulin Ratio 1.2 (1.0-2.8); Alkaline Phosphatase 60 U/L (38-126); Aspartate Aminotransferase 23 IU/L (14-36); BUN Creatinine Ratio 14.6 (6-22); Bilirubin Total 0.6 mg/dL (0.2-1.3); Blood Urea Nitrogen 22 mg/dL (7-17); Calcium 9.2 mg/dL (8.4-10.2); Carbon Dioxide 27 mmol/L (22-32); Chloride 104 mmol/L (98-107); Creatine Kinase 66 U/L (30-135); Estimated Glomerular Filt Rate 37 mL/min (>60); Globulin 3.3 g/dL (1.7-4.1); Glucose 154 mg/dL (80-110); HEMOLYSIS 23 (0-50); Lipase 127 U/L (23-300); Magnesium 1.6 mg/dL (1.6-2.3); Sodium 138 mmol/L (137-145); Total Protein 7.1 g/dL (6.3-8.2)
[2024-07-23 18:44] LABS: Add Manual Diff / Slide Review NO; Basophils Absolute Auto 100 /uL (0-100); Basophils Percent Auto 0.9 % (0-2); Eosinophils Absolute Auto 200 /uL (0-450); Eosinophils Percent Auto 2.3 % (2-4); Hematocrit 33.3 % (36-46); Hemoglobin 11.3 g/dL (12.0-16.0); Lymphocytes Absolute Auto 1300 /uL (1100-4500); Lymphocytes Percent Auto 17.4 % (25-40); Mean Corpuscular HGB Conc 33.8 % (30-36); Mean Corpuscular Hemoglobin 28.1 PG (26-34); Monocytes Absolute Auto 600 /uL (0-900); Monocytes Percent Auto 7.7 % (3-14); Neutrophils Absolute Auto 5300 /uL (1500-7000); Neutrophils Percent Auto 71.7 % (50-75); Platelet Count 262 X10^3/uL (150-400); Red Blood Cell Count 4.01 X10^6/uL (4.0-5.2); Red Cell Distribution Width 14.7 % (11.6-14.8); White Blood Cell Count 7.4 X10^3/uL (4.5-11.0)
[2024-07-23 18:55] LABS: NT-proBNP (BNP-Adult 18+) 2630 pg/mL (<125); Troponin I < 0.012 ng/mL (0.01-0.034)
--- NOTE | 2024-07-23 20:02 | EKG_ITS ---
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
[2024-07-23 20:27] LABS: Troponin I < 0.012 ng/mL (0.01-0.034)
--- NOTE | 2024-07-23 21:33 | PC.NURSE ---
Pt continues to denie pain at this time. Understands plan of care.
[2024-07-23] MEDS: FUROSEMIDE 40 MG/4 ML VIAL IV (22:37)
[2024-07-24] MEDS: dilTIAZem CD 120 MG CAP 240 MG PO ×3 (00:08→21:42)
[2024-07-24] MEDS: APIXABAN 5 MG TABLET PO ×3 (00:08→21:43)
[2024-07-24] MEDS: AMIODARONE 200 MG TABLET PO ×3 (00:08→21:43)
--- NOTE | 2024-07-24 00:33 | DI.ECHO.S_ITS ---
[facility]---------+ [facility] : : [address] : : [place] : : [id number] : : Phone: [phone] Echocardiogram Report + + :Name: HENOK ARCE Study Date: 07/24/2024 Height: 62 in : :[facility] ReadingLocation: Weight: 221 lb: : Gender: Female BSA: 2.0 m2 : :: 1950 Age: 73 yrs BP: 94/48 mmHg: :Reason For Study: CHEST PAIN : :Ordering Physician: XOCHITL, : :MARIUSZ BARTHOLOMEW Performed By: Eloina Duke : :Referring: MARIUSZ LEUNG MD : + + Interpretation Summary 1. The left ventricular contractility is hyperdynamic. Estimated ejection fraction is greater than 70% with near obliteration of the left ventricular cavity at end systole. Mild concentric LVH. Unable to comment on diastolic function. 2. The right ventricular contractility is normal. 3. Moderate left atrial enlargement. All other cardiac chambers are of normal size. 4. Bioprosthetic valve noted in the aortic position with normal gradients. Mean aortic valve gradient is 19 mmHg. Trace to mild perivalvular leak. 5. Moderate to severe mitral annular calcification with moderate mitral stenosis with mean gradient of 5 mmHg. 6. No obvious intracardiac shunts. 7. No obvious intracardiac masses nor thrombi. 8. No hemodynamically significant pericardial effusion. 9. Low right-sided filling pressures. Conclusion: Hyperdynamic left ventricular systolic function with normal functioning bioprosthetic aortic valve. When compared with previous echocardiogram, the degree of mitral stenosis seems to have decreased. Procedure: A two-dimensional transthoracic echocardiogram with color flow and Doppler was performed. The study quality was technically difficult. Comparison is made with the echocardiogram of 11/12/2023. Definity was not used due to history of possible allergic reaction, 2018. The patient was in sinus bradycardia with heart rates between 45-49 bpm during the exam. Left Ventricle: The left ventricle is normal in size. There is mild concentric left ventricular hypertrophy. The ejection fraction is estimated to be 70-75%. Diastolic function could not be accurately assessed due to confounding valvular disease. Right Ventricle: The right ventricle is normal in size and function. Atria: The left atrium is moderately dilated. Right atrial size is normal. There is no Doppler evidence for an interatrial shunt. Mitral Valve: There is moderate to severe mitral annular calcification. The mitral valve leaflets are moderately calcified. The mitral valve mean gradient is 5.0 mmHg. Previous mitral mean gradient of 9.0mmHg on 11/12/2023. Aortic Valve: There is a bioprosthetic aortic valve. There is mild perivalvular regurgitation around the prosthetic aortic valve. The peak aortic velocity is 2.9 m/sec. The aortic valve mean gradient is 19 mmHg. The calculated aortic valve area is 1.2 cm2. Tricuspid Valve: The tricuspid valve is normal in structure and function. There is trace tricuspid regurgitation. Pulmonary artery pressures cannot be estimated because of the lack of a measurable TR jet velocity. Pulmonic Valve: The pulmonic valve is not well seen, but is grossly normal. There is trace pulmonic regurgitation. Great Vessels: The aortic root is normal size. The dimensions of the ascending aorta are normal. The IVC is of normal diameter and collapses greater than 50% with a sniff. This suggests a low right atrial pressure of 3 mm Hg. Pericardium/ Pleura There is no pericardial effusion. There is no pleural effusion. MMode/2D Measurements & Calculations LVIDd: 4.3 cm LVOT diam: 2.0 cm LVIDs: 2.8 cm asc Aorta Diam: 3.5 cm FS: 35.6 % Ao Arch Diam (Prox Trans): 2.9 cm IVSd: 1.1 cm LVPWd: 1.2 cm LV florez. diameter/BSA (cm/m^2): 2.1 LV sys. diameter/BSA (cm/m^2): 1.4 LA A2 area: 26.6 cm2 RA long axis: 5.2 cm LA A4 area: 25.8 cm2 RA area: 17.6 cm2 LA length (vol): 6.2 cm RA vol: 50.7 ml LA vol: 94.2 ml RA : 25.4 ml/m2 LA vol index: 47.2 ml/m2 IVC diam: 1.3 cm RVD1 (basal): 3.0 cm TAPSE: 2.2 cm Doppler Measurements & Calculations Ao V2 max: 292.0 cm/sec LVOT Max Young: 109.9 cm/sec Ao V2 mean: 203.2 cm/sec LV V1 max P.8 mmHg Ao max P.1 mmHg LV V1 VTI: 25.5 cm Ao mean P.6 mmHg RBIAN(I,D): 1.1 cm2 Ao V2 VTI: 75.0 cm BRIAN(V,D): 1.2 cm2 sev ratio: 0.34 BRIAN indexed to BSA (cm^2/m^2): 0.54 Med Peak E' Young: 3.0 cm/sec PA V2 max: 99.0 cm/sec Lat Peak E' Young: 2.8 cm/sec PA V2 mean: 71.9 cm/sec MVA(VTI): 0.99 cm2 PA mean P.2 mmHg PA pr(Accel): 32.8 mmHg MV V2 mean: 88.5 cm/sec SV(LVOT): 80.8 ml MV mean P.0 mmHg MV V2 VTI: 81.6 cm Reading Physician:
--- NOTE | 2024-07-24 03:04 | P.HP_ITS ---
History of Present Illness History of Present Illness Chief complaint: Chest Pain Narrative: ----- Forwarded Message ----- From:?Omid Louise <[email or web address]> To:?Omid Aspen <[email or web address]> Sent:?Tuesday, July 23, 2024 at 10:52:29 PM PDT Subject:Galen Parker 73 year-old female with past medical history of paroxysmal atrial fibrillation on Eliquis, insulin dependent diabetes, congestive heart failure, aortic stenosis status post TAVR and CAD status post stents x 2 presents with complaint of chest pain. Of note, the patient was seen in our ER yesterday with similar complaints. The patient had a negative troponin and EKG and was deemed stable to be sent home. However, the patient said she had reoccurrence of her chest pain today. The patient described her chest pain as substernal, radiate to the left axilla, lasting about 10 minutes, pressure like andassociate with some shortness of breath. The patient, however, denies any palpitation, nausea, vomiting, diarrhea, coughing, abdominal pain or lower extremity swelling. In our emergency room, the patient was hemodynamically stable. The patient was saturating well on RA. Labs reviewed. Troponin negative BNP 2600s. Cr1.4. EKG shows upright QRS in lead 2, 3 and AVF, which is a change from EKG done yesterday. Otherwise there?s no other changes in EKG seen. Chest x-ray, which shows possible mild pulmonary edema. 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 [facility]LY [facility], [facility] Medical History Mild cognitive disorder Acute kidney injury Appendicitis with perforation Vertigo Sedentary lifestyle Stage II pressure ulcer of sacral region (~02/2023) Hyperlipidemia Thyroid nodule Incontinence Breast screening Abnormal mammogram of left breast NSTEMI (non-ST elevated myocardial infarction) (09/2018) Recent heart attack Coronary artery disease Osteopenia (05/20/14) Knee osteoarthritis Hypertension (~2011) Diabetes mellitus (~2011) Rheumatoid arthritis Colon polyps (08/31/14) Surgical History History of bilateral knee replacement (2009) History of colonoscopy with polypectomy (08/31/14) History of left cataract surgery (03/23/15) History of right cataract surgery (04/06/15) Anesthesia History of knee replacement History of knee replacement Status post delivery (12/21/78) Family History Brother Drowning Father Heart disease Mother Diabetes mellitus Sister Bone cancer Sister Bone cancer Social History marital status: household members: family and children Smoking Status: Never smoker alcohol intake: current substance use type: does not use Meds Home Medications and Allergies Home Medications Medication Instructions Recorded Confirmed Type Parking Permit... #1 ea 09/08/20 06/30/24 Rx pen needle, diabetic 29 gauge x #100 ea 03/09/22 06/30/24 Rx 1/2 (Comfort EZ Pen [place]) atorvastatin 80 mg tablet (Lipitor) 80 mg PO QPM 06/02/23 06/30/24 History apixaban 5 mg tablet (Eliquis) 5 mg PO BID #180 tabs 10/19/23 06/30/24 Rx blood sugar diagnostic (True #100 strips 10/30/23 06/30/24 Rx Metrix Glucose Test Strip) clopidogrel 75 mg tablet 75 mg PO QAM #90 tabs 11/07/23 06/30/24 Rx diltiazem HCl 120 mg 240 mg (2 x 120 mg) PO BID #180 11/07/23 06/30/24 Rx capsule,extended release 12 hr caps metformin 500 mg tablet 1,000 mg (2 x 500 mg) PO BID #360 11/07/23 06/30/24 Rx tabs metoprolol succinate 50 mg 50 mg PO DAILY #90 tabs 11/07/23 06/30/24 Rx tablet,extended release 24 hr nitroglycerin 0.4 mg sublingual 0.4 mg sublingual Q5-15M PRN chest 11/07/23 06/30/24 Rx tablet pain #90 tabs nystatin 100,000 unit/gram topical 1 applic topical TID rash 01/16/24 06/30/24 History cream insulin glargine 100 unit/mL (3 40 unit (0.4 mL) SUBCUT QAM #15 mL 02/11/24 06/30/24 Rx mL) subcutaneous pen (Lantus Solostar U-100 Insulin) semaglutide 1 mg/dose (4 mg/3 mL) 1 mg (0.75 mL) SUBCUT QWEEK #3 mL 04/29/24 06/30/24 Rx subcutaneous pen injector (Ozempic) amiodarone 200 mg tablet 200 mg PO BID #180 tabs 06/09/24 06/30/24 Rx Allergies Allergy/AdvReac Type Severity Reaction Status Date / Time Sulfa (Sulfonamide Allergy Mild RASH Verified 07/23/24 17:32 Antibiotics) Review of Systems Review of Systems ROS: Yes All systems reviewed with the patient and are negative except as otherwise documented Exam Vital Signs (past 8 hours): - 07/23/24 19:30 07/23/24 19:30 07/23/24 20:00 Temperature Pulse Rate 72 71 Respiratory Rate 15 19 Blood Pressure 145/75 H Pulse Oximetry 98 99 Oxygen Delivery Method Oxygen Flow Rate 07/23/24 20:00 07/23/24 20:30 07/23/24 20:31 Temperature Pulse Rate 70 Respiratory Rate 28 H Blood Pressure 176/73 H 153/69 H Pulse Oximetry 99 Oxygen Delivery Method Oxygen Flow Rate 07/23/24 20:31 07/23/24 21:00 07/23/24 21:01 Temperature Pulse Rate 69 70 Respiratory Rate 28 H 17 Blood Pressure 161/67 H Pulse Oximetry 100 99 Oxygen Delivery Method Oxygen Flow Rate 07/23/24 21:01 07/23/24 21:28 07/23/24 22:54 Temperature 98.5 F Pulse Rate 69 69 Respiratory Rate 17 16 Blood Pressure 134/78 Pulse Oximetry 99 99 Oxygen Delivery Method Room Air Room Air Oxygen Flow Rate 07/23/24 23:47 Temperature 98 F Pulse Rate 69 Respiratory Rate 20 Blood Pressure 157/72 H Pulse Oximetry 99 Oxygen Delivery Method Oxygen Flow Rate 0 Oxygen Delivery Method Room Air Oxygen Flow Rate 0 Narrative Exam Narrative: GENERAL: The patient is not in any acute distressed. Awake and alert. HEENT: Nonicteric sclerae, PERRLA, EOMI. Oropharynx clear. Moist mucous membranes. Conjunctivae appear well perfused. HEART: Regular rate and rhythm without murmurs. No lower extremities edema. LUNGS: Clear to auscultation bilaterally. No wheezing, crackles or rhonchi ABDOMEN: Soft, positive bowel sounds, nontender. SKIN: No rash, no excessive bruising, petechiae, or purpura. NEUROLOGIC: AxO x 3. Cranial nerves II-XII intact without motor/sensory deficit. Objective Labs 07/23/24 17:41 07/23/24 17:41 Labs: Laboratory Results - last 24 hr 07/23/24 07/23/24 07/23/24 17:40 17:41 19:40 WBC 7.4 RBC 4.01 Hgb 11.3 L Hct 33.3 L MCV 83.0 MCH 28.1 MCHC 33.8 RDW 14.7 Plt Count 262 Neut % (Auto) 71.7 Lymph % (Auto) 17.4 L [place] % (Auto) 7.7 Eos % (Auto) 2.3 Baso % (Auto) 0.9 Neut # (Auto) 5300 Lymph # (Auto) 1300 [place] # (Auto) 600 Eos # (Auto) 200 Baso # (Auto) 100 PT 15.7 H INR 1.4 H APTT 37 H Sodium 138 Potassium 4.0 Chloride 104 Carbon Dioxide 27 BUN 22 H Creatinine 1.51 H Estimated GFR 37 L BUN/Creatinine Ratio 14.6 Glucose 154 H Calcium 9.2 Magnesium 1.6 Total Bilirubin 0.6 AST 23 ALT 14 Alkaline Phosphatase 60 Total Creatine Kinase Cancelled 66 Troponin I Cancelled < 0.012 < 0.012 NT-Pro-B Natriuret Pep 2630 H Total Protein 7.1 Albumin 3.8 Globulin 3.3 Albumin/Globulin Ratio 1.2 Lipase 127 Assessment & Plan Assessment & Plan narrative: Chest pain with history of CAD s/p stents. Admit the patient to medical telemetry under observation. Initial troponin was negative. EKG however, shows changes as mentioned above with upright QRS in lead 2, 3 and AVF which is a change from yesterday EKG. The patient chest pain now resolved.? Will obtain echocardiogram in the morning and consider stress test if needed. Continue home cardiac medication, including aspirin.? Check lipid profile. Possible acute on chronic heart failure. Status post 40 mg IV Lasix in the ER. Will hold any further Lasix and monitor renal function in the morning. Daily weights and strict I/Os.? Consider giving additional IV lasix if needed in AM. Atrial fibrillation patient. Continue home Eliquis, amiodarone/metoprolol/diltiazem.? Rate controlled. Hyperlipidemia. Lipid panel and resume home statin. Insulin dependent diabetes will hold home metofromin but will continue lantus and?sliding scale.?? DVT prophylaxis Eliquis. Code status full code. Disposition likely home in 1 to 2 days. Time-Based Coding :: [TOTAL MINUTES] spent with patient and on the chart (including review of chart, obtaining history, exam, reviewing outside data, placing orders, documenting exam and treatment plan, and counseling patient) on [DATE].
[2024-07-24 04:51] LABS: Add Manual Diff / Slide Review NO; Basophils Absolute Auto 100 /uL (0-100); Eosinophils Absolute Auto 200 /uL (0-450); Eosinophils Percent Auto 2.1 % (2-4); Hematocrit 34.2 % (36-46); Hemoglobin 11.4 g/dL (12.0-16.0); Lymphocytes Absolute Auto 1600 /uL (1100-4500); Lymphocytes Percent Auto 18.7 % (25-40); Mean Corpuscular HGB Conc 33.4 % (30-36); Mean Corpuscular Hemoglobin 27.3 PG (26-34); Mean Corpuscular Volume 81.8 fL (80-100); Monocytes Absolute Auto 800 /uL (0-900); Monocytes Percent Auto 9.6 % (3-14); Neutrophils Absolute Auto 5900 /uL (1500-7000); Neutrophils Percent Auto 68.6 % (50-75); Platelet Count 276 X10^3/uL (150-400); Red Blood Cell Count 4.18 X10^6/uL (4.0-5.2); Red Cell Distribution Width 14.5 % (11.6-14.8); White Blood Cell Count 8.6 X10^3/uL (4.5-11.0)
[2024-07-24 05:00] LABS: INR 1.3 (0.9-1.3); Prothrombin Time 14.5 SECONDS (9.4-12.5)
[2024-07-24 05:03] LABS: BUN Creatinine Ratio 14.8 (6-22); Blood Urea Nitrogen 24 mg/dL (7-17); Calcium 9.1 mg/dL (8.4-10.2); Carbon Dioxide 29 mmol/L (22-32); Chloride 101 mmol/L (98-107); Cholesterol 134 mg/dL (140-199); Estimated Glomerular Filt Rate 34 mL/min (>60); Glucose 167 mg/dL (80-110); HDL Cholesterol 38 mg/dL (40-60); HEMOLYSIS < 15 (0-50); LDL Cholesterol Calculated 72 mg/dL (<100); Potassium 3.4 mmol/L (3.4-5.1); Sodium 138 mmol/L (137-145); Triglycerides 122 mg/dL (35-150)
[2024-07-24 05:15] LABS: Troponin I < 0.012 ng/mL (0.01-0.034)
--- NOTE | 2024-07-24 07:42 | P.HP_ITS ---
History of Present Illness History of Present Illness Date Patient Seen: 07/24/24 Chief complaint: Chest Pain Narrative: From night doctor: 73 year-old female with past medical history of paroxysmal atrial fibrillation on Eliquis, insulin dependent diabetes, congestive heart failure, aortic stenosis status post TAVR and CAD status post stents x 2 presents with complaint of chest pain. Of note, the patient was seen in our ER yesterday with similar complaints. The patient had a negative troponin and EKG and was deemed stable to be sent home. However, the patient said she had reoccurrence of her chest pain today. The patient described her chest pain as substernal, radiate to the left axilla, lasting about 10 minutes, pressure like and associate with some shortness of breath. The patient, however, denies any palpitation, nausea, vomiting, diarrhea, coughing, abdominal pain or lower extremity swelling. In our emergency room, the patient was hemodynamically stable. The patient was saturating well on RA. Labs reviewed. Troponin negative BNP 2600s. Cr1.4. EKG shows upright QRS in lead 2, 3 and AVF, which is a change from EKG done yesterday. Otherwise there?s no other changes in EKG seen. Chest x-ray, which shows possible mild pulmonary edema. Patient occ med physician team wall was and recommended that he should be admitted to continue to trend troponin and obtain echocardiogram tomorrow. Additional information: She was history of cardiac stents x2. One was in [place] about 3 months ago the other was before that in [facility]. Her occ med physician is Dr. Rosario. She sees him about once a year. Her next appointment is in October. She describes 2 episodes of pain over the last 3 days. One was 3 twinges of pain in 1 was 1 twinges of pain. The last episode was at rest but she did have shortness a breath. She denies any radiation of pain to neck or arm, no associated nausea, diaphoresis, or shortness a breath. She was trying to have a parathyroid surgery and is waiting cardiac clearance. She was apparently scheduled for a stress test. She denies recent URI symptoms, fevers, or cough. No clear exertional association to her pain. Nothing a in particular made it worse or better. [facility] Medical History Mild cognitive disorder Acute kidney injury Appendicitis with perforation Vertigo Sedentary lifestyle Stage II pressure ulcer of sacral region (~02/2023) Hyperlipidemia Thyroid nodule Incontinence Breast screening Abnormal mammogram of left breast NSTEMI (non-ST elevated myocardial infarction) (09/2018) Recent heart attack Coronary artery disease Osteopenia (05/20/14) Knee osteoarthritis Hypertension (~2011) Diabetes mellitus (~2011) Rheumatoid arthritis Colon polyps (08/31/14) Surgical History History of bilateral knee replacement (2009) History of colonoscopy with polypectomy (08/31/14) History of left cataract surgery (03/23/15) History of right cataract surgery (04/06/15) Anesthesia History of knee replacement History of knee replacement Status post delivery (12/21/78) Family History Brother Drowning Father Heart disease Mother Diabetes mellitus Sister Bone cancer Sister Bone cancer Social History marital status: household members: family and children Smoking Status: Never smoker alcohol intake: current substance use type: does not use Meds Home Medications and Allergies Home Medications Medication Instructions Recorded Confirmed Type Parking Permit... #1 ea 09/08/20 06/30/24 Rx pen needle, diabetic 29 gauge x #100 ea 03/09/22 06/30/24 Rx 1/2 (Comfort EZ Pen [place]) atorvastatin 80 mg tablet (Lipitor) 80 mg PO QPM 06/02/23 06/30/24 History apixaban 5 mg tablet (Eliquis) 5 mg PO BID #180 tabs 10/19/23 06/30/24 Rx blood sugar diagnostic (True #100 strips 10/30/23 06/30/24 Rx Metrix Glucose Test Strip) clopidogrel 75 mg tablet 75 mg PO QAM #90 tabs 11/07/23 06/30/24 Rx diltiazem HCl 120 mg 240 mg (2 x 120 mg) PO BID #180 11/07/23 06/30/24 Rx capsule,extended release 12 hr caps metformin 500 mg tablet 1,000 mg (2 x 500 mg) PO BID #360 11/07/23 06/30/24 Rx tabs metoprolol succinate 50 mg 50 mg PO DAILY #90 tabs 11/07/23 06/30/24 Rx tablet,extended release 24 hr nitroglycerin 0.4 mg sublingual 0.4 mg sublingual Q5-15M PRN chest 11/07/23 06/30/24 Rx tablet pain #90 tabs nystatin 100,000 unit/gram topical 1 applic topical TID rash 01/16/24 06/30/24 History cream insulin glargine 100 unit/mL (3 40 unit (0.4 mL) SUBCUT QAM #15 mL 02/11/24 06/30/24 Rx mL) subcutaneous pen (Lantus Solostar U-100 Insulin) semaglutide 1 mg/dose (4 mg/3 mL) 1 mg (0.75 mL) SUBCUT QWEEK #3 mL 04/29/24 06/30/24 Rx subcutaneous pen injector (Ozempic) amiodarone 200 mg tablet 200 mg PO BID #180 tabs 06/09/24 06/30/24 Rx Allergies Allergy/AdvReac Type Severity Reaction Status Date / Time Sulfa (Sulfonamide Allergy Mild RASH Verified 07/23/24 17:32 Antibiotics) Review of Systems Review of Systems Narrative: All else reviewed and otherwise unremarkable except as noted in the history and physical. Exam Vital Signs (past 8 hours): - 07/23/24 23:47 Temperature 98 F Pulse Rate 69 Respiratory Rate 20 Blood Pressure 157/72 H Pulse Oximetry 99 Oxygen Flow Rate 0 Oxygen Delivery Method Room Air Oxygen Flow Rate 0 Narrative Exam Narrative: NAD, alert and oriented, fluent speech, calm. Normocephalic skull, EOMI, anicteric sclera, symmetric pupils. Oropharynx unremarkable, no droop. Neck supple, midline trachea, no adenopathy. Lungs clear, normal rate and effort. Heart regular, no murmur gallop or rub. Abdomen is soft, non distended and non tender. Extremities are free of edema. Skin is free of rash or lesions. Joints are not swollen or deformed. Judgment appears to be normal. Objective ECG Impression: Normal sinus rhythm Imaging Chest x-ray: Radiologist's impression: Low lung volumes on limited single view radiograph, no acute consolidation or pleural effusion. Mildly prominent tissue and could represent mild edema or atypical infection. Labs 07/24/24 04:25 07/24/24 04:25 Labs: Laboratory Results - last 24 hr 07/23/24 07/23/24 07/23/24 17:40 17:41 19:40 WBC 7.4 RBC 4.01 Hgb 11.3 L Hct 33.3 L MCV 83.0 MCH 28.1 MCHC 33.8 RDW 14.7 Plt Count 262 Neut % (Auto) 71.7 Lymph % (Auto) 17.4 L [place] % (Auto) 7.7 Eos % (Auto) 2.3 Baso % (Auto) 0.9 Neut # (Auto) 5300 Lymph # (Auto) 1300 [place] # (Auto) 600 Eos # (Auto) 200 Baso # (Auto) 100 PT 15.7 H INR 1.4 H APTT 37 H Sodium 138 Potassium 4.0 Chloride 104 Carbon Dioxide 27 BUN 22 H Creatinine 1.51 H Estimated GFR 37 L BUN/Creatinine Ratio 14.6 Glucose 154 H Calcium 9.2 Magnesium 1.6 Total Bilirubin 0.6 AST 23 ALT 14 Alkaline Phosphatase 60 Total Creatine Kinase Cancelled 66 Troponin I Cancelled < 0.012 < 0.012 NT-Pro-B Natriuret Pep 2630 H Total Protein 7.1 Albumin 3.8 Globulin 3.3 Albumin/Globulin Ratio 1.2 Triglycerides Cholesterol LDL Cholesterol, Calc HDL Cholesterol Lipase 127 07/24/24 04:25 WBC 8.6 RBC 4.18 Hgb 11.4 L Hct 34.2 L MCV 81.8 MCH 27.3 MCHC 33.4 RDW 14.5 Plt Count 276 Neut % (Auto) 68.6 Lymph % (Auto) 18.7 L [place] % (Auto) 9.6 Eos % (Auto) 2.1 Baso % (Auto) 1.0 Neut # (Auto) 5900 Lymph # (Auto) 1600 [place] # (Auto) 800 Eos # (Auto) 200 Baso # (Auto) 100 PT 14.5 H INR 1.3 APTT Sodium 138 Potassium 3.4 Chloride 101 Carbon Dioxide 29 BUN 24 H Creatinine 1.62 H Estimated GFR 34 L BUN/Creatinine Ratio 14.8 Glucose 167 H Calcium 9.1 Magnesium Total Bilirubin AST ALT Alkaline Phosphatase Total Creatine Kinase Troponin I < 0.012 NT-Pro-B Natriuret Pep Total Protein Albumin Globulin Albumin/Globulin Ratio Triglycerides 122 Cholesterol 134 L LDL Cholesterol, Calc 72 HDL Cholesterol 38 L Lipase Assessment & Plan Assessment & Plan narrative: 1. Chest pain with history of CAD s/p stents. Present on admission and active. 2. Possible acute on chronic heart failure. Present on admission and active. 3. Atrial fibrillation patient. Present on admission and active. 4. Hyperlipidemia. Present on admission and active. 5. Insulin dependent diabetes. Present on admission and active. PLAN: Admit the patient to medical telemetry under observation. Initial troponin was negative. EKG however, shows changes as mentioned above with upright QRS in lead 2, 3 and AVF which is a change from yesterday EKG. The patient chest pain now resolved.? . Continue home cardiac medication, including aspirin.? Check lipid profile. Status post 40 mg IV Lasix in the ER. Will hold any further Lasix and monitor renal function in the morning. Daily weights and strict I/Os.? Consider giving additional IV lasix if needed in AM. Continue home Eliquis, amiodarone/metoprolol/diltiazem.? Rate controlled. Lipid panel and resume home statin. -ECHO -ETT -notify Dr Rosario. DVT prophylaxis Eliquis. Code status full code. Observation status, anticipate a 1 midnight stay. ALEXANDRA: 07/25 (2 day stress test, patient received hot chocolate in the hospital). Time-Based Coding :: 35 min spent with patient and on the chart (including review of chart, obtaining history, exam, reviewing outside data, placing orders, documenting exam and treatment plan, and counseling patient) on 07/24. Quality MIPS - Admit I confirm the patient?s Advance Care Plan is present, Code status is documented, Surrogate decision maker is in patient?s record [If Yes, STOP here]: Yes MIPS - Meds 'Current medications' to include all prescriptions, [id number] products, herbals, cannabis/cannabidiol products, and vitamin/mineral/dietary (nutritional) supplements. I have utilized all available resources to obtain, update, or review the patient?s current medications. [If Yes, STOP here]: Yes
[2024-07-24] MEDS: CLOPIDOGREL 75 MG TABLET PO (08:31)
[2024-07-24 08:33] VITALS: BP 94/48; PULSE 52
[2024-07-24] MEDS: INSULIN GLARGINE 100 UNIT/ML 3ML PEN 40 UNIT SUBCUT (08:34)
[2024-07-24] MEDS: POTASSIUM CHLORIDE 20 MEQ TAB 40 MEQ PO (11:50)
[2024-07-24 12:00] VITALS: PULSE 49; RESP 17; TEMP 36.6; O2SAT 97
[2024-07-24] MEDS: INSULIN LISPRO 100 UNIT/ML 3ML VIAL SUBCUT ×2 (12:22→17:00)
--- NOTE | 2024-07-24 15:33 | CM.DANOTE ---
Initial DCP Assessment Visit Note Reviewed EMR and team rounds for status updates. Went to meet with pt at bedside to introduce self and role, however she was in the middle of receiving personal care with the RN. Pt lives independently in her own home here in [place]. She has family that can transport her home once she's medically cleared for d/c, anticipated for 07/25/24. Payor: [facility] Adv PCP: Dr. Ruggiero Pt is a 73 year-old F with a hx of CHF, paroxysmal Afib, aortic stenosis, CAD, and diabetes presented to the ED last evening for the second day of intermittent chest pain. Cardiology was consulted in the ED, the recommendation was for pt to be placed on OVS, obtain an echo, and monitor overnight. Today she was scheduled for a stress test if she was still symptomatic. DCP will continue to follow for final recommendations or resource needs for d/c. Discharge Planning/Care Management Advanced directive, confirm from FAMILY Start: 07/23/24 23:55 Freq: Q24H Status: Active Protocol: Document 07/23/24 23:55 CT (Rec: 07/23/24 23:59 CT [id number]) Advance Directive, confirm on record Time 23:58 Person contacted Patient Copy received No CM Discharge Assessment Start: 07/24/24 15:30 Freq: Status: Active Protocol: Document 07/24/24 15:30 DPL (Rec: 07/24/24 15:33 DPL [id number]) Discharge Planning Assessment Assigned Workers Compensation Paralegal SAYRA Bird Advance Directives? Yes Advance Directives on File No History Provided By Medical Record Expected Length of Stay 2 Has Patient been admitted in last 30 No days? Prior Living Arrangements House Household Members none Type of transporation used prior to Drives own vehicle admit Independent with ADL's Yes Is patient alert and oriented? Yes Caregiver for Another No Comment No identified d/c needs at this time. Discharge Plan Home Transportation Arrangement naun Morgan at d/c If patient plan is home with home health No : Has signed face to face form been completed? Review Status In Process Please Provide Date Initial DC 07/24/24 Assessment Was Performed
[2024-07-24 16:00] VITALS: BP 108/57; PULSE 50; RESP 16; TEMP 37.1; O2SAT 99
[2024-07-24] MEDS: ATORVASTATIN 20 MG TABLET 80 MG PO (17:00)
--- NOTE | 2024-07-24 18:30 | PC.NURSE ---
Pt Had first part of Nuc Med test this morning, to have part 2 in a.m. Sl intact/patent. Tele showing SR/BBB per ICU staff. CBG 171, 145,183 covered w/ insulin as per orders. Small decub near tailbone. Med once for headach Call light w/in reach, bed alarm on for pt safety. Continue w/plan of care.
[2024-07-24] MEDS: ACETAMINOPHEN 325 MG TABLET 650 MG PO (18:40)
[2024-07-24 19:50] VITALS: BP 119/62; PULSE 52; RESP 16; TEMP 36.4; O2SAT 99
[2024-07-24 23:39] VITALS: BP 123/59; PULSE 52; RESP 17; TEMP 36.1; O2SAT 98
[2024-07-25 03:07] LABS: Adenovirus F 40/41 Not Detected (Not Detect); Astrovirus Not Detected (Not Detect); Campylobacter Not Detected (Not Detect); Cryptosporidium Not Detected (Not Detect); Cyclospora cayetanensis Not Detected (Not Detect); Entamoeba histolytica Not Detected (Not Detect); Enteroaggregative E.coli Not Detected (Not Detect); Enteropathogenic E.coli Not Detected (Not Detect); Enterotoxigenic E.coli It/st Not Detected (Not Detect); Giardia lamblia Not Detected (Not Detect); Norovirus GI/GII Not Detected (Not Detect); Plesiomonsa shigelloides Not Detected (Not Detect); Rotavirus A Not Detected (Not Detect); Salmonella Not Detected (Not Detect); Sapovirus Not Detected (Not Detect); Shiga-like toxin-prod E.coli Not Detected (Not Detect); Shigella/Enteroinvasive E.coli Not Detected (Not Detect); Vibrio Not Detected (Not Detect); Vibrio cholerae Not Detected (Not Detect); Yersinia enterocolitica Not Detected (Not Detect)
[2024-07-25 03:15] LABS: Clostridium difficile toxin AB Detected (Not Detect)
--- NOTE | 2024-07-25 03:48 | PM.EVENT ---
Event Note Event Note (Rapid Response, Code, or fall): Was notified by patient nursing staff that the patient has severe diarrhea. C dif ordered and came back positive. PO vancomycin ordered.
[2024-07-25 03:50] VITALS: BP 131/57; PULSE 50; RESP 17; TEMP 36.2; O2SAT 98
[2024-07-25] MEDS: VANCOMYCIN 125 MG CAPSULE PO ×3 (04:19→15:46)
[2024-07-25 08:00] VITALS: BP 108/50; PULSE 52; RESP 16; TEMP 36.8; O2SAT 98
[2024-07-25 08:27] VITALS: PULSE 52
[2024-07-25] MEDS: APIXABAN 5 MG TABLET PO (09:21)
[2024-07-25] MEDS: CLOPIDOGREL 75 MG TABLET PO (09:21)
[2024-07-25] MEDS: INSULIN GLARGINE 100 UNIT/ML 3ML PEN 40 UNIT SUBCUT (09:22)
[2024-07-25] MEDS: INSULIN LISPRO 100 UNIT/ML 3ML VIAL SUBCUT ×3 (10:00→17:11)
--- NOTE | 2024-07-25 11:27 | PC.NURSE ---
Day shift: Off unit for stress test at 1120.
[2024-07-25 12:01] VITALS: BP 110/97; PULSE 55; RESP 16; TEMP 36.7; O2SAT 99
--- NOTE | 2024-07-25 15:24 | PM.PN.1 ---
Exam Vital Signs (past 8 hours): - 07/25/24 08:00 07/25/24 08:27 07/25/24 12:01 Temperature 98.2 F 98.0 F Pulse Rate 52 L 52 L 55 L Respiratory Rate 16 16 Blood Pressure 108/50 L 110/97 H Pulse Oximetry 98 99 Oxygen Flow Rate 0 0 Oxygen Delivery Method Room Air Oxygen Flow Rate 0 Objective Labs 07/24/24 04:25 07/24/24 04:25 Labs: Laboratory Results - last 24 hr 07/25/24 01:30 Stl C. cayetanensis PCR Not detected Stool Rotavirus (PCR) Not detected Stool Adenovirus (PCR) Not detected Stool Astrovirus (PCR) Not detected Stool Cryptosporidium PCR Not detected Stl E.coli Shiga Tox PCR Not detected St Sh/Enteroin Ecoli PCR Not detected Stl Enterotoxigenic E PCR Not detected Stool EPEC (PCR) Not detected Stl E. histolytica PCR Not detected Stool Giardia Lamblia PCR Not detected Stool Sapovirus (PCR) Not detected Stl P. shigelloides PCR Not detected St Y.enterocolitica PCR Not detected Stool Vibrio (PCR) Not detected Stl Vibrio cholerae PCR Not detected Stl Enteroaggr Ecoli PCR Not detected Stl Norovirus GI/GII PCR Not detected Campylobacter (PCR) Not detected C. difficile Tox (PCR) Detected H Salmonella (PCR) Not detected PFSH Medical History Mild cognitive disorder Acute kidney injury Appendicitis with perforation Vertigo Sedentary lifestyle Stage II pressure ulcer of sacral region (~02/2023) Hyperlipidemia Thyroid nodule Incontinence Breast screening Abnormal mammogram of left breast NSTEMI (non-ST elevated myocardial infarction) (09/2018) Recent heart attack Coronary artery disease Osteopenia (05/20/14) Knee osteoarthritis Hypertension (~2011) Diabetes mellitus (~2011) Rheumatoid arthritis Colon polyps (08/31/14) Surgical History History of bilateral knee replacement (2009) History of colonoscopy with polypectomy (08/31/14) History of left cataract surgery (03/23/15) History of right cataract surgery (04/06/15) Anesthesia History of knee replacement History of knee replacement Status post delivery (12/21/78) Family History Brother Drowning Father Heart disease Mother Diabetes mellitus Sister Bone cancer Sister Bone cancer Social History marital status: household members: none Smoking Status: Never smoker alcohol intake: current substance use type: does not use Assessment & Plan Time-Based Coding :: [TOTAL MINUTES] spent with patient and on the chart (including review of chart, obtaining history, exam, reviewing outside data, placing orders, documenting exam and treatment plan, and counseling patient) on [DATE].
[2024-07-25 16:00] VITALS: BP 142/52; PULSE 65; RESP 16; TEMP 36.4; O2SAT 100
--- NOTE | 2024-07-25 16:15 | CM.DPC ---
DCP Continued: Reviewed EMR and team rounds for pt?s medical status. Per Provider, pt to complete second half of stress test today. It was also reported that pt is C-DIFF+ and now exhibiting weakness. PT evaluation has been ordered today, pending discharge recommendations. Transitional Care Team notified of discharge and requested follow up appointment with PCP. Plan: Anticipating discharge home with family, CM Team monitoring for PT recommendations. BRODY Monsalve
[2024-07-25] MEDS: ATORVASTATIN 20 MG TABLET 80 MG PO (17:18)
--- NOTE | 2024-07-25 17:31 | PM.DS.1 ---
History of Present Illness History of Present Illness Chief complaint: Chest Pain Narrative: From night doctor: 73 year-old female with past medical history of paroxysmal atrial fibrillation on Eliquis, insulin dependent diabetes, congestive heart failure, aortic stenosis status post TAVR and CAD status post stents x 2 presents with complaint of chest pain. Of note, the patient was seen in our ER yesterday with similar complaints. The patient had a negative troponin and EKG and was deemed stable to be sent home. However, the patient said she had reoccurrence of her chest pain today. The patient described her chest pain as substernal, radiate to the left axilla, lasting about 10 minutes, pressure like and associate with some shortness of breath. The patient, however, denies any palpitation, nausea, vomiting, diarrhea, coughing, abdominal pain or lower extremity swelling. In our emergency room, the patient was hemodynamically stable. The patient was saturating well on RA. Labs reviewed. Troponin negative BNP 2600s. Cr1.4. EKG shows upright QRS in lead 2, 3 and AVF, which is a change from EKG done yesterday. Otherwise there?s no other changes in EKG seen. Chest x-ray, which shows possible mild pulmonary edema. Patient surgical scrub tech team wall was and recommended that he should be admitted to continue to trend troponin and obtain echocardiogram tomorrow. Additional information: She was history of cardiac stents x2. One was in [place] about 3 months ago the other was before that in [facility]. Her surgical scrub tech is Dr. Rosario. She sees him about once a year. Her next appointment is in October. She describes 2 episodes of pain over the last 3 days. One was 3 twinges of pain in 1 was 1 twinges of pain. The last episode was at rest but she did have shortness a breath. She denies any radiation of pain to neck or arm, no associated nausea, diaphoresis, or shortness a breath. She was trying to have a parathyroid surgery and is waiting cardiac clearance. She was apparently scheduled for a stress test. She denies recent URI symptoms, fevers, or cough. No clear exertional association to her pain. Nothing a in particular made it worse or better. Discharge Providers Provider Date of admission: 07/23/24 21:25 Discharge Date: 07/25/24 Primary care physician: Chino Ruggiero MD Consults: 07/25/24 15:14 Consult to Physical Therapy Evaluate & Treat Comment: Physician Instructions: Evaluate and Treat Discharge provider: Richard Solares MD Summary Hospital Course Discharge Diagnosis: 1. Chest pain with history of CAD s/p stents. Present on admission and resolved. Low risk stress test. 2. Possible acute on chronic heart failure. Present on admission and active. 3. Atrial fibrillation patient. Present on admission and active. 4. Hyperlipidemia. Present on admission and active. 5. Insulin dependent diabetes. Present on admission and active. 6. New diarrhea with a positive C diff antigen, toxin pending. New and active. Hospital Course: She was admitted with atypical chest pain. She had a static ECG and normal troponins. She underwent a 2 day stress test which was low risk for reversible defect and revealed her previous inferior infarct. On the evening of July 24 she developed diarrhea and C diff toxin was pending. She was started on PO Vancomycin discharge and she will be discharged in days of oral vancomycin. She will follow up with Cardiology and her PCP. The stress test was discussed directly with her primary surgical scrub tech, Dr. Rosario. Status at Discharge Cognitive/behavioral status at discharge: oriented Functional status at discharge: uses cane/walker Overall status at discharge: patient is back to baseline Time Spent with Patient Time spent: Greater than 30 minutes Exam Vital Signs (past 8 hours): - 07/25/24 12:01 07/25/24 16:00 Temperature 98.0 F 97.6 F Pulse Rate 55 L 65 Respiratory Rate 16 16 Blood Pressure 110/97 H 142/52 H Pulse Oximetry 99 100 Oxygen Flow Rate 0 0 Oxygen Delivery Method Room Air Oxygen Flow Rate 0 Narrative Exam Narrative: NAD, alert and oriented. Fluent speech. Lungs are clear, normal rate and effort. Heart is regular, no murmur gallop or rub. Abdomen is soft, non distended. Extremities are free of edema. Objective ECG Impression: Normal sinus rhythm Imaging Multiple studies:: Radiologist's impression: Myocardial perfusion scan is read as low risk with a fixed inferior defect. Echo: 1. The left ventricular contractility is hyperdynamic. Estimated ejection fraction is greater than 70% with near obliteration of the left ventricular cavity at end systole. Mild concentric LVH. Unable to comment on diastolic function. 2. The right ventricular contractility is normal. 3. Moderate left atrial enlargement. All other cardiac chambers are of normal size. 4. Bioprosthetic valve noted in the aortic position with normal gradients. Mean aortic valve gradient is 19 mmHg. Trace to mild perivalvular leak. 5. Moderate to severe mitral annular calcification with moderate mitral stenosis with mean gradient of 5 mmHg. 6. No obvious intracardiac shunts. 7. No obvious intracardiac masses nor thrombi. 8. No hemodynamically significant pericardial effusion. 9. Low right-sided filling pressures. Conclusion: Hyperdynamic left ventricular systolic function with normal functioning bioprosthetic aortic valve. When compared with previous echocardiogram, the degree of mitral stenosis seems to have decreased. Chest x-ray: Low lung volumes on limited single view radiograph, no acute consolidation or pleural effusion. Mildly prominent tissue and could represent mild edema or atypical infection. Labs 07/24/24 04:25 07/24/24 04:25 Labs: Laboratory Results - last 24 hr 07/25/24 01:30 Stl C. cayetanensis PCR Not detected Stool Rotavirus (PCR) Not detected Stool Adenovirus (PCR) Not detected Stool Astrovirus (PCR) Not detected Stool Cryptosporidium PCR Not detected Stl E.coli Shiga Tox PCR Not detected St Sh/Enteroin Ecoli PCR Not detected Stl Enterotoxigenic E PCR Not detected Stool EPEC (PCR) Not detected Stl E. histolytica PCR Not detected Stool Giardia Lamblia PCR Not detected Stool Sapovirus (PCR) Not detected Stl P. shigelloides PCR Not detected St Y.enterocolitica PCR Not detected Stool Vibrio (PCR) Not detected Stl Vibrio cholerae PCR Not detected Stl Enteroaggr Ecoli PCR Not detected Stl Norovirus GI/GII PCR Not detected Campylobacter (PCR) Not detected C. difficile Tox (PCR) Detected H Salmonella (PCR) Not detected PFSH Medical History Mild cognitive disorder Acute kidney injury Appendicitis with perforation Vertigo Sedentary lifestyle Stage II pressure ulcer of sacral region (~02/2023) Hyperlipidemia Thyroid nodule Incontinence Breast screening Abnormal mammogram of left breast NSTEMI (non-ST elevated myocardial infarction) (09/2018) Recent heart attack Coronary artery disease Osteopenia (05/20/14) Knee osteoarthritis Hypertension (~2011) Diabetes mellitus (~2011) Rheumatoid arthritis Colon polyps (08/31/14) Surgical History History of bilateral knee replacement (2009) History of colonoscopy with polypectomy (08/31/14) History of left cataract surgery (03/23/15) History of right cataract surgery (04/06/15) Anesthesia History of knee replacement History of knee replacement Status post delivery (12/21/78) Family History Brother Drowning Father Heart disease Mother Diabetes mellitus Sister Bone cancer Sister Bone cancer Social History marital status: household members: none Smoking Status: Never smoker alcohol intake: current substance use type: does not use Discharge Assessment & Plan Assessment and Plan Assessment: 1. Chest pain with history of CAD s/p stents. Present on admission and resolved. Low risk stress test. 2. Possible acute on chronic heart failure. Present on admission and active. 3. Atrial fibrillation patient. Present on admission and active. 4. Hyperlipidemia. Present on admission and active. 5. Insulin dependent diabetes. Present on admission and active. 6. New diarrhea with a positive C diff antigen, toxin pending. New and active. Plan of Treatment: Discharge home with oral vancomycin q.i.d. for 10 days. Close follow up with PCP. Discharge Plan Discharge Plan Provider Discharge Comment: Normal stress test, stable for discharge home. We will treat with vancomycin q.i.d. for 10 days for C diff toxin colitis. Toxin assay is pending. Discharge orders & Medications Discharge Orders: Discharge (Order); Ordered 07/25/24 Ordered By: Richard Solares Prescriptions: New vancomycin 125 mg Capsule 125 mg PO Q6H Qty: 40 0RF Continued (DME) pen needle, diabetic [Comfort EZ Pen Mccall] 29 gauge x 1/2 needle See Rx Instructions .ROUTE .MEDSUPPLY Qty: 100 3RF Rx Instructions: use to check blood glucose 3x per day (DME) True Metrix Glucose Test Strip Strip See Rx Instructions .ROUTE .COMPLEX Qty: 100 3RF Dose Instruction: USE TO TEST BLOOD SUGAR DAILY Rx Instructions: USE TO TEST BLOOD SUGAR DAILY insulin glargine [Lantus Solostar U-100 Insulin] 100 unit/mL (3 mL) insulin pen 40 unit SUBCUT QAM Qty: 15 3RF amiodarone 200 mg tablet 200 mg PO BID Qty: 180 1RF Rx Instructions: Hold while on fluconazole (DME) Parking Permit... See Rx Instructions .Route .MEDSUPPLY Qty: 1 0RF Rx Instructions: Patient meets criteria for permanent parking placard. Eliquis 5 mg tablet 5 mg PO BID Qty: 180 2RF metoprolol succinate 50 mg tablet extended release 24 hr 50 mg PO DAILY Qty: 90 3RF diltiazem HCl 120 mg capsule,extended release 12 hr 240 mg PO BID Qty: 180 3RF clopidogrel 75 mg tablet 75 mg PO QAM Qty: 90 3RF metformin 500 mg tablet 1,000 mg PO BID Qty: 360 3RF Rx Instructions: TAKE TWO TABLETS BY MOUTH TWICE DAILY nitroglycerin 0.4 mg tablet, sublingual 0.4 mg SL Q5-15M PRN (Reason: chest pain) Qty: 90 11RF Patient Comments: patient has prescription but has not taken yet Rx Instructions: until response; do not exceed 3 doses per episode Ozempic 1 mg/dose (4 mg/3 mL) pen injector 1 mg SUBCUT QWEEK Qty: 3 1RF Rx Instructions: start taking after 1 month of 0.5mg ozempic atorvastatin [Lipitor] 80 mg tablet 80 mg PO QPM nystatin 100,000 unit/gram cream 1 applic topical TID Medication counseling provided by Pharmacist: No Follow up/Referrals: Chino Ruggiero MD [Primary Care Provider] - Discharge Health Status Multidrug resistant organism: No MDRO Diet/Activity/Treatments Diet: Carb-consistent/Diabetic Visit Report/Discharge Packet Instructions: DI for Atypical Chest Pain, DI for Clostridioides difficile Infection Stand Alone Forms: Patient Portal/API Discharge Data Primary Care Provider: Chino Ruggiero Attending Provider: Omid Louise Admit Date/Time: 07/23/24 21:25
--- NOTE | 2024-07-25 18:18 | PC.NURSE ---
Day shift: Pt left unit and headed home via WC at approx 1830. Going home with her Son. Paperwork is signed and all questions answered. Pt has all personal belongings. scripts sent to pharmacy electronic. Pt states I'm happy to be going home today and I'm feeling so much better.
--- NOTE | 2024-07-28 12:24 | DI.NM.S_ITS ---
DATE OF SERVICE: 07/25/2024 PROCEDURE: Pharmacological perfusion study. INDICATIONS: Chest pain with history of TAVR, paroxysmal AFib, CAD, known LAD stent. RADIOPHARMACEUTICAL: 27.5 millicuries technetium-99m Myoview IV was injected at stress and 27.1 millicuries technetium-99m Myoview IV was injected at rest. CARDIAC STRESS: The patient underwent IV Lexiscan study as per standard protocol under the supervision of an attending staff. The patient remained hemodynamically stable. Baseline blood pressure 125/70. Baseline rhythm sinus. During stress, no convincing ischemic changes seen. No significant arrhythmias. Minimal dyspnea. No chest discomfort. RAW DATA: There is increased subdiaphragmatic activity. Breast shadow seen as well. GATED STUDY: Stress LV ejection fraction 77%. Decreased perfusion in the distal inferior wall and inferior apex. Rest of the segments are moving vigorously. Resting end-diastolic volume 111 mL. TID ratio 1.10, which is within normal limits. MYOCARDIAL PERFUSION SCAN: Stress supine and resting supine images were compared to each other. There are no stress prone images. There appears to be predominantly fixed, large size, severely decreased perfusion of distal inferior wall extending into the inferior apex and distal inferolateral wall consistent with old infarction without any significant reversible ischemia other than mild ischemia in the basal inferolateral wall. There is also fixed basal anteroseptal defect. No significant change from the previous study. CONCLUSION: This is an abnormal myocardial perfusion study consistent with moderate sized, severe infarction of distal inferior wall extending into the inferior apex and mild basal inferolateral wall reversibility as well as mild basal anterior septal fixed defect. No significant change from the perfusion study of October,. Discussed the finding with Dr. Richard Solares. Anuja Parker - [employer]BI[employer]/fn/ doc#: [id number]/job#: [id number] dd: 07/25/2024 13:07:00 dt: 07/25/2024 18:51:00 DICTATING MD/COPIES TO: Светлана Rosario MD COPIES MNE: DON;
== END 2024-07-25 18:29 | disposition home or self-care (01) ==
LOC: ED 21:24 → AC 21:25
PROVIDERS: Emergency Medicine; Admitting Provider Internal Medicine; Emergency Provider Emergency Medicine; PCP Family Medicine; Referring Provider Emergency Medicine; Visit Provider Internal Medicine
DX: R07.89 Other chest pain (principal); I48.0 Paroxysmal atrial fibrillation; R19.7 Diarrhea, unspecified; A04.72 Enterocolitis due to Clostridium difficile, not specified as recurrent; I50.9 Heart failure, unspecified; E11.9 Type 2 diabetes mellitus without complications; E78.5 Hyperlipidemia, unspecified; Z79.01 Long term (current) use of anticoagulants; Z79.4 Long term (current) use of insulin; Z95.818 Presence of other cardiac implants and grafts
CPT/HCPCS: 36415; 71045; 78452; 80048; 80053; 80061; 82550; 82962; 83690; 83735; 83880; 84484; 85025; 85610; 85730; 87324; 87507; 93005; 93017; 93306; 96372; 96374; 99284; G0378; A9502; J1815; J1940; J2785

== ENCOUNTER 2024-08-23 18:42 | Emergency (ER) | payer OTHER, SELFPAY ==
[2024-07-23 23:47] VITALS: BMI 39.6
[2024-08-23] VITALS (13 sets, daily range): BP systolic 127–159; BP diastolic 60–77; PULSE 66–73; RESP 15–22; TEMP 37.1; O2SAT 97–100; BMI 38.4
--- NOTE | 2024-08-23 18:48 | DI.RAD.S_ITS ---
PROCEDURE: XR CHEST 1V INDICATIONS: chest pain TECHNIQUE: One view of the chest was acquired. COMPARISON: [facility], CR, XR CHEST 1V, 07/23/2024, 17:51. FINDINGS: Surgical changes and devices: Percutaneous aortic valve. Lungs and pleura: Lungs are clear. No pleural effusions or pneumothorax. Mediastinum: Mediastinal contours appear normal. Heart size is normal. Bones and chest wall: No suspicious bony lesions. Overlying soft tissues appear unremarkable. IMPRESSION: No acute cardiopulmonary abnormality is seen. Dictated by: Santi Kaplan M.D. on 08/23/2024 at 19:32 Approved by: Santi Kaplan M.D. on 08/23/2024 at 19:34
--- NOTE | 2024-08-23 18:56 | EKG_ITS ---
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
[2024-08-23 19:07] LABS: Add Manual Diff / Slide Review NO; Basophils Absolute Auto 100 /uL (0-100); Basophils Percent Auto 0.6 % (0-2); Eosinophils Absolute Auto 200 /uL (0-450); Eosinophils Percent Auto 2.5 % (2-4); Hematocrit 31.3 % (36-46); Hemoglobin 10.3 g/dL (12.0-16.0); Lymphocytes Absolute Auto 1600 /uL (1100-4500); Mean Corpuscular HGB Conc 32.9 % (30-36); Mean Corpuscular Hemoglobin 27.6 PG (26-34); Mean Corpuscular Volume 83.8 fL (80-100); Monocytes Absolute Auto 700 /uL (0-900); Monocytes Percent Auto 8.6 % (3-14); Neutrophils Absolute Auto 6000 /uL (1500-7000); Neutrophils Percent Auto 69.3 % (50-75); Platelet Count 245 X10^3/uL (150-400); Red Blood Cell Count 3.73 X10^6/uL (4.0-5.2); Red Cell Distribution Width 14.9 % (11.6-14.8); White Blood Cell Count 8.7 X10^3/uL (4.5-11.0)
--- NOTE | 2024-08-23 19:09 | ED.GENADULT ---
HPI - General Adult General Chief complaint: Shortness of Breath/Dyspnea Stated complaint: swelling in legs Time Seen by Provider: 08/23/24 19:09 History of Present Illness HPI narrative: Patient is a 74-year-old female with a history of AFib on Eliquis, hyperlipidemia, diabetes, hypertension, comes into the ED from home via EMS for evaluation of lower extremity swelling and pain. States that she noticed that her leg started swelling today. She denies any other symptoms at this time no chest pain no shortness breath no abdominal pain no nausea vomiting fever chills. Has been compliant with all her medications. Patient not complaining of any other symptoms at this time. Related Data Home Medications Medication Instructions Recorded Confirmed atorvastatin 80 mg tablet (Lipitor) 80 mg PO QPM 06/02/23 07/29/24 nystatin 100,000 unit/gram topical 1 applic topical TID rash 01/16/24 07/29/24 cream Previous Rx's Medication Instructions Recorded Parking Permit... #1 ea 09/08/20 pen needle, diabetic 29 gauge x #100 ea 03/09/2210/16 (Comfort EZ Pen [place]) apixaban 5 mg tablet (Eliquis) 5 mg PO BID #180 tabs 10/19/23 clopidogrel 75 mg tablet 75 mg PO QAM #90 tabs 11/07/23 diltiazem HCl 120 mg 240 mg (2 x 120 mg) PO BID #180 11/07/23 capsule,extended release 12 hr caps metformin 500 mg tablet 1,000 mg (2 x 500 mg) PO BID #360 11/07/23 tabs metoprolol succinate 50 mg 50 mg PO DAILY #90 tabs 11/07/23 tablet,extended release 24 hr nitroglycerin 0.4 mg sublingual 0.4 mg sublingual Q5-15M PRN chest 11/07/23 tablet pain #90 tabs insulin glargine 100 unit/mL (3 40 unit (0.4 mL) SUBCUT QAM #15 mL 02/11/24 mL) subcutaneous pen (Lantus Solostar U-100 Insulin) amiodarone 200 mg tablet 200 mg PO BID #180 tabs 06/09/24 vancomycin 125 mg capsule 125 mg PO Q6H #40 caps 07/25/24 semaglutide 1 mg/dose (4 mg/3 mL) 1 mg (0.75 mL) SUBCUT QWEEK #3 mL 08/12/24 subcutaneous pen injector (Ozempic) blood sugar diagnostic (True #100 strips 08/19/24 Metrix Glucose Test Strip) Allergies Allergy/AdvReac Type Severity Reaction Status Date / Time Sulfa (Sulfonamide Allergy Mild RASH Verified 07/29/24 16:27 Antibiotics) Review of Systems Review of Systems Narrative: General: Cooperative, comfortable, well-developed, not in acute distress HEENT: Normocephalic, atraumatic, PERRLA, normal sclera, eyelids normal, Neck: Active full range of motion, atraumatic Chest: Normal to inspection, negative crepitus, no overlying erythema ecchymosis Respiratory: Normal respiratory effort, not in acute respiratory distress, clear to auscultation bilaterally negative cough, wheeze, tachypnea, rhonchi, rales Cardiology: Regular rate rhythm negative gallop, murmur, rubs GI/: Normal to inspection, soft, nonrigid, no tenderness to palpation, exam deferred MSK: Bilateral lower extremity swelling, Full range of active range of motion of all 4 extremities, atraumatic Skin: No rashes lesions noted Neuro: Alert awake oriented x3, moves all 4 extremities spontaneously, cranial nerves intact, able to answer all questions appropriately follows commands appropriately Psych: Cooperative, negative suicidal or homicidal ideations Patient History Medical History Mild cognitive disorder Acute kidney injury Appendicitis with perforation Vertigo Sedentary lifestyle Stage II pressure ulcer of sacral region (~02/2023) Hyperlipidemia Thyroid nodule Incontinence Breast screening Abnormal mammogram of left breast NSTEMI (non-ST elevated myocardial infarction) (09/2018) Recent heart attack Coronary artery disease Osteopenia (05/20/14) Knee osteoarthritis Hypertension (~2011) Diabetes mellitus (~2011) Rheumatoid arthritis Colon polyps (08/31/14) Surgical History History of bilateral knee replacement (2009) History of colonoscopy with polypectomy (08/31/14) History of left cataract surgery (03/23/15) History of right cataract surgery (04/06/15) Anesthesia History of knee replacement History of knee replacement Status post delivery (12/21/78) Family History Brother Drowning Father Heart disease Mother Diabetes mellitus Sister Bone cancer Sister Bone cancer Social History marital status: household members: none Smoking Status: Never smoker alcohol intake: current substance use type: does not use Smoking Status: Never smoker alcohol intake frequency: holidays/special occasions only Alcohol type: hard liquor Substance Use Type: does not use Exam Narrative Exam Narrative: General: Cooperative, comfortable, well-developed, not in acute distress HEENT: Normocephalic, atraumatic, PERRLA, normal sclera, eyelids normal, Neck: Active full range of motion, atraumatic Chest: Normal to inspection, negative crepitus, no overlying erythema ecchymosis Respiratory: Normal respiratory effort, not in acute respiratory distress, clear to auscultation bilaterally negative cough, wheeze, tachypnea, rhonchi, rales Cardiology: Regular rate rhythm negative gallop, murmur, rubs GI/: Normal to inspection, soft, nonrigid, no tenderness to palpation, exam deferred MSK: Full range of active range of motion of all 4 extremities, atraumatic, +1 pitting edema to bilateral lower extremities, mild tenderness to palpation but no erythema no ecchymosis, no rashes Skin: No rashes lesions noted Neuro: Alert awake oriented x3, moves all 4 extremities spontaneously, cranial nerves intact, able to answer all questions appropriately follows commands appropriately Psych: Cooperative, negative suicidal or homicidal ideations Initial Vital Signs Initial Vital Signs: Vital Signs Temperature 98.7 F 08/23/24 18:45 Pulse Rate 70 08/23/24 18:45 Respiratory Rate 16 08/23/24 18:45 Blood Pressure 153/70 H 08/23/24 18:45 Pulse Oximetry 98 08/23/24 18:45 Oxygen Delivery Method Room Air 08/23/24 18:45 Course Orders Ordered: ED Orders 08/23/24 18:48 XR chest 1V Stat EKG-12 Lead Stat 08/23/24 18:55 Complete Blood Count AUTO DIFF Stat Comprehensive Metabolic Panel Stat Lipase Stat Magnesium Stat NT-proBNP (BNP-Adult 18+) Stat PTT Partial Thromboplastin López Stat Prothrombin Time INR Stat Troponin & CK Cardiac Panel Stat 08/23/24 19:12 US periph venous low extrem bi Stat 08/23/24 20:50 Trop I [Troponin I] Urgent Vital Signs Vital signs: Vital Signs - 8 hr 08/23/24 18:45 08/23/24 18:46 08/23/24 18:47 Temperature 98.7 F Pulse Rate 70 69 Respiratory Rate 16 Blood Pressure 153/70 H 153/70 H Pulse Oximetry 98 100 Oxygen Delivery Method Room Air 08/23/24 19:00 08/23/24 19:00 08/23/24 19:30 Temperature Pulse Rate 66 71 Respiratory Rate 22 21 Blood Pressure 159/67 H Pulse Oximetry 98 97 Oxygen Delivery Method 08/23/24 19:30 08/23/24 20:00 Temperature Pulse Rate 71 Respiratory Rate 19 Blood Pressure 143/77 H Pulse Oximetry 97 Oxygen Delivery Method Medical Decision Making Differential Diagnosis Differential Diagnosis: CHF, DVT, electrolyte abnormality, lymphadenopathy Lab Data 08/23/24 18:55 08/23/24 18:55 Labs: Lab Results 08/23/24 08/23/24 Range/Units 18:55 20:50 WBC 8.7 (4.5-11.0) X10^3/uL RBC 3.73 L (4.0-5.2) X10^6/uL Hgb 10.3 L (12.0-16.0) g/dL Hct 31.3 L (36-46) % MCV 83.8 (80-100) fL MCH 27.6 (26-34) PG MCHC 32.9 (30-36) % RDW 14.9 H (11.6-14.8) % Plt Count 245 (150-400) X10^3/uL Neut % (Auto) 69.3 (50-75) % Lymph % (Auto) 19.0 L (25-40) % [place] % (Auto) 8.6 (3-14) % Eos % (Auto) 2.5 (2-4) % Baso % (Auto) 0.6 (0-2) % Neut # (Auto) 6000 (0465-5217) /uL Lymph # (Auto) 1600 (4117-8534) /uL [place] # (Auto) 700 (0-900) /uL Eos # (Auto) 200 (0-450) /uL Baso # (Auto) 100 (0-100) /uL PT 12.2 (9.4-12.5) SECONDS INR 1.1 (0.9-1.3) APTT 31 (25.1-36.5) SECONDS Sodium 135 L (137-145) mmol/L Potassium 4.1 (3.4-5.1) mmol/L Chloride 104 (98-107) mmol/L Carbon Dioxide 27 (22-32) mmol/L BUN 33 H (7-17) mg/dL Creatinine 1.34 H (0.52-1.04) mg/dL Estimated GFR 42 L (>60) mL/min BUN/Creatinine Ratio 24.6 H (6-22) Glucose 239 H (80-110) mg/dL Calcium 9.1 (8.4-10.2) mg/dL Magnesium 1.8 (1.6-2.3) mg/dL Total Bilirubin 0.5 (0.2-1.3) mg/dL AST 18 (14-36) IU/L ALT 23 (<35) IU/L Alkaline Phosphatase 84 (38-126) U/L Total Creatine Kinase 44 (30-135) U/L Troponin I 0.035 H 0.031 (0.01-0.034) ng/mL NT-Pro-B Natriuret Pep 1560 H (<125) pg/mL Total Protein 7.2 (6.3-8.2) g/dL Albumin 3.5 (3.5-5.0) g/dL Globulin 3.7 (1.7-4.1) g/dL Albumin/Globulin Ratio 0.9 L (1.0-2.8) Lipase 116 (23-300) U/L Imaging Data US - DVT: Radiologist's Impression: [address] [address] Ultrasound Report Signed Patient: Anuja Parker MR#: [id number] : 1950 Acct:[id number] Age/Sex: 74 / F Date of Service: 08/23/24 Loc: ED Accession Number: [id number] Procedure: US periph venous low extrem bi Ordering Provider: Dave Renee D.O. PROCEDURE: US PERIPH VENOUS LOW EXTREM BI INDICATIONS: swelling and pain TECHNIQUE: Real-time imaging, as well as color and pulse Doppler interrogation, were performed of the deep veins of both legs from the inguinal ligament to the popliteal fossa, with documentation of the visualized calf veins. COMPARISON: None. FINDINGS: Right: The common femoral, femoral, popliteal, and the visualized calf veins are normally compressible, and free of intraluminal thrombus. Color and pulse Doppler demonstrate normal phasic intravascular flow. There is normal augmentation response to distal compression maneuver. Left: The common femoral, femoral, popliteal, and the visualized calf veins are normally compressible, and free of intraluminal thrombus. Color and pulse Doppler demonstrate normal phasic intravascular flow. There is normal augmentation response to distal compression maneuver. IMPRESSION: No evidence of DVT in visualized bilateral lower extremity veins. Chest x-ray: Radiologist's Impression: [address] [address] XRay Report Signed Patient: Anuja Parker MR#: [id number] : 1950 Acct:[id number] Age/Sex: 74 / F Date of Service: 08/23/24 Loc: ED Accession Number: [id number] Procedure: XR chest 1V Ordering Provider: Dave Renee D.O. PROCEDURE: XR CHEST 1V INDICATIONS: chest pain TECHNIQUE: One view of the chest was acquired. [facility]. FINDINGS: Surgical changes and devices: Percutaneous aortic valve. Lungs and pleura: Lungs are clear. No pleural effusions or pneumothorax. Mediastinum: Mediastinal contours appear normal. Heart size is normal. Bones and chest wall: No suspicious bony lesions. Overlying soft tissues appear unremarkable. IMPRESSION: No acute cardiopulmonary abnormality is seen. ECG Data Interpretation: EKG interpreted by ED physician sinuses 67 beats per minute, 475 QTC, normal axis, nonspecific ST changes, no STEMI MDM Narrative Medical decision making narrative: Patient is a 74-year-old female with history of AFib on Eliquis, hyperlipidemia, hypertension, diabetes, presents to the emergency department via EMS from home for evaluation of lower extremity swelling and pain started and getting worse over the past few days. Denying any chest pain shortness of breath. Patient had chest x-ray did not show any acute findings, DVT study negative. Patient states that she has not really been walking recently therefore swelling most likely secondary to possible decreased ambulation, however she is able to stand bear weight ambulate with her cane which is her baseline here in the emergency department. Lab work otherwise unremarkable no chest pain no shortness of breath, mildly elevated BNP however not requiring diuresis at this time not requiring any supplemental oxygen she was instructed follow up with primary care cardiology in outpatient setting she was given strict return precautions she is safe for discharge home with outpatient follow up Discharge Plan Departure Patient Disposition: Home Clinical Impression: Swelling of lower leg Activity Restrictions/Additional Instructions: Please read the discharge instructions sheet carefully and bring all papers to all doctor follow-up visits, as it may contain information that your doctor may want to see. Disease processes change and evolve, if your symptoms worsen or if you develop any new symptoms that are concerning to you please return for evaluation. Your evaluation today does not show any evidence of any life-threatening/serious illnesses requiring admission to the hospital or surgery. Please follow-up with your doctor for re-evaluation in approximately 1 day. Seek immediate medical attention for any worrisome symptoms. Prescriptions: No Action (DME) pen needle, diabetic [Comfort EZ Pen [place]] 29 gauge x 1/2 needle See Rx Instructions .ROUTE .MEDSUPPLY Qty: 100 3RF Rx Instructions: use to check blood glucose 3x per day insulin glargine [Lantus Solostar U-100 Insulin] 100 unit/mL (3 mL) insulin pen 40 unit SUBCUT QAM Qty: 15 3RF amiodarone 200 mg tablet 200 mg PO BID Qty: 180 1RF Rx Instructions: Hold while on fluconazole Ozempic 1 mg/dose (4 mg/3 mL) pen injector 1 mg SUBCUT QWEEK Qty: 3 1RF (DME) True Metrix Glucose Test Strip Strip See Rx Instructions .ROUTE .COMPLEX Qty: 100 3RF Dose Instruction: USE TO TEST BLOOD SUGAR DAILY Rx Instructions: USE TO TEST BLOOD SUGAR DAILY (DME) Parking Permit... See Rx Instructions .Route .MEDSUPPLY Qty: 1 0RF Rx Instructions: Patient meets criteria for permanent parking placard. Eliquis 5 mg tablet 5 mg PO BID Qty: 180 2RF metoprolol succinate 50 mg tablet extended release 24 hr 50 mg PO DAILY Qty: 90 3RF diltiazem HCl 120 mg capsule,extended release 12 hr 240 mg PO BID Qty: 180 3RF clopidogrel 75 mg tablet 75 mg PO QAM Qty: 90 3RF metformin 500 mg tablet 1,000 mg PO BID Qty: 360 3RF Rx Instructions: TAKE TWO TABLETS BY MOUTH TWICE DAILY nitroglycerin 0.4 mg tablet, sublingual 0.4 mg SL Q5-15M PRN (Reason: chest pain) Qty: 90 11RF Patient Comments: patient has prescription but has not taken yet Rx Instructions: until response; do not exceed 3 doses per episode atorvastatin [Lipitor] 80 mg tablet 80 mg PO QPM nystatin 100,000 unit/gram cream 1 applic topical TID vancomycin 125 mg Capsule 125 mg PO Q6H Qty: 40 0RF Referrals: Chino Ruggiero MD [Primary Care Provider] - Stand Alone Forms: Patient Portal/API/Survey
--- NOTE | 2024-08-23 19:12 | DI.US.S_ITS ---
PROCEDURE: US PERIPH VENOUS LOW EXTREM BI INDICATIONS: swelling and pain TECHNIQUE: Real-time imaging, as well as color and pulse Doppler interrogation, were performed of the deep veins of both legs from the inguinal ligament to the popliteal fossa, with documentation of the visualized calf veins. COMPARISON: None. FINDINGS: Right: The common femoral, femoral, popliteal, and the visualized calf veins are normally compressible, and free of intraluminal thrombus. Color and pulse Doppler demonstrate normal phasic intravascular flow. There is normal augmentation response to distal compression maneuver. Left: The common femoral, femoral, popliteal, and the visualized calf veins are normally compressible, and free of intraluminal thrombus. Color and pulse Doppler demonstrate normal phasic intravascular flow. There is normal augmentation response to distal compression maneuver. IMPRESSION: No evidence of DVT in visualized bilateral lower extremity veins. Dictated by: Bart Hernández M.D. on 08/23/2024 at 20:59 Approved by: Bart Hernández M.D. on 08/23/2024 at 20:59
[2024-08-23 19:13] LABS: INR 1.1 (0.9-1.3); Prothrombin Time 12.2 SECONDS (9.4-12.5)
[2024-08-23 19:16] LABS: PTT Partial Thromboplastin Tim 31 SECONDS (25.1-36.5)
[2024-08-23 19:17] LABS: Alanine Aminotransferase 23 IU/L (<35); Albumin 3.5 g/dL (3.5-5.0); Albumin Globulin Ratio 0.9 (1.0-2.8); Alkaline Phosphatase 84 U/L (38-126); Aspartate Aminotransferase 18 IU/L (14-36); BUN Creatinine Ratio 24.6 (6-22); Bilirubin Total 0.5 mg/dL (0.2-1.3); Blood Urea Nitrogen 33 mg/dL (7-17); Calcium 9.1 mg/dL (8.4-10.2); Carbon Dioxide 27 mmol/L (22-32); Chloride 104 mmol/L (98-107); Creatine Kinase 44 U/L (30-135); Estimated Glomerular Filt Rate 42 mL/min (>60); Globulin 3.7 g/dL (1.7-4.1); Glucose 239 mg/dL (80-110); HEMOLYSIS < 15 (0-50); Lipase 116 U/L (23-300); Magnesium 1.8 mg/dL (1.6-2.3); Potassium 4.1 mmol/L (3.4-5.1); Sodium 135 mmol/L (137-145); Total Protein 7.2 g/dL (6.3-8.2)
[2024-08-23 19:29] LABS: NT-proBNP (BNP-Adult 18+) 1560 pg/mL (<125); Troponin I 0.035 ng/mL (0.01-0.034)
--- NOTE | 2024-08-23 19:55 | PC.NURSE ---
pt c/o LLE swelling states she thinks her dog broke her toes, she has a pit bull because he sat on her feet
[2024-08-23 21:25] LABS: Troponin I 0.031 ng/mL (0.01-0.034)
== END 2024-08-23 22:17 | disposition home or self-care (01) ==
PROVIDERS: Emergency Provider Student in an Organized Health Care Education/Training Program; PCP Family Medicine
DX: M79.89 Other specified soft tissue disorders (principal); M79.605 Pain in left leg; M79.604 Pain in right leg; R07.9 Chest pain, unspecified; Z79.01 Long term (current) use of anticoagulants
CPT/HCPCS: 71045; 80053; 82550; 83690; 83735; 83880; 84484; 85025; 85610; 85730; 93005; 93010; 93970; 99283; 99284

== ENCOUNTER 2024-10-26 07:52 | Emergency (ER) | payer OTHER, SELFPAY ==
[2024-07-23 23:47] VITALS: BMI 39.6
[2024-10-26] VITALS (15 sets, daily range): BP systolic 124–150; BP diastolic 57–78; PULSE 77–97; RESP 12–19; TEMP 36.4–36.6; O2SAT 95–100; BMI 38.1
--- NOTE | 2024-10-26 08:03 | ED.GENADULT ---
HPI - General Adult General Chief complaint: Trauma Stated complaint: GLF with unk down Time Seen by Provider: 10/26/24 07:53 History of Present Illness HPI narrative: 74-year-old woman with a history of chronic atrial fibrillation on amiodarone and apixaban, hyperlipidemia, hypertension, diabetes, coronary artery disease post stenting. Was at home in usual state of health, became dizzy grabbed onto a counter bit ended up falling, she landed on her left hip and left shoulder, was unable to rotated at all and was on the ground lying on her left hip for a number of hours before her son and grandson who live in the trailer behind her came to check on her. She states that she did hit her head on the linoleum floor but does not recall any loss of consciousness. No complaints of fever, cough, chest pain, abdominal pain she notes that she does have some sores over her bottom and intertrigo. Related Data Home Medications Medication Instructions Recorded Confirmed atorvastatin 80 mg tablet (Lipitor) 80 mg PO QPM 06/02/23 07/29/24 nystatin 100,000 unit/gram topical 1 applic topical TID rash 01/16/24 07/29/24 cream Previous Rx's Medication Instructions Recorded Parking Permit... #1 ea 09/08/20 pen needle, diabetic 29 gauge x #100 ea 03/09/2210/16 (Comfort EZ Pen Ethel) clopidogrel 75 mg tablet 75 mg PO QAM #90 tabs 11/07/23 diltiazem HCl 120 mg 240 mg (2 x 120 mg) PO BID #180 11/07/23 capsule,extended release 12 hr caps metformin 500 mg tablet 1,000 mg (2 x 500 mg) PO BID #360 11/07/23 tabs metoprolol succinate 50 mg 50 mg PO DAILY #90 tabs 11/07/23 tablet,extended release 24 hr nitroglycerin 0.4 mg sublingual 0.4 mg sublingual Q5-15M PRN chest 11/07/23 tablet pain #90 tabs insulin glargine 100 unit/mL (3 40 unit (0.4 mL) SUBCUT QAM #15 mL 02/11/24 mL) subcutaneous pen (Lantus Solostar U-100 Insulin) amiodarone 200 mg tablet 200 mg PO BID #180 tabs 06/09/24 vancomycin 125 mg capsule 125 mg PO Q6H #40 caps 07/25/24 blood sugar diagnostic (True #100 strips 08/19/24 Metrix Glucose Test Strip) apixaban 5 mg tablet (Eliquis) 5 mg PO BID #180 tabs 09/05/24 semaglutide 1 mg/dose (4 mg/3 mL) 1 mg (0.75 mL) SUBCUT QWEEK #3 mL 10/21/24 subcutaneous pen injector (Ozempic) cephalexin 500 mg capsule 500 mg PO TID #15 caps 10/26/24 Allergies Allergy/AdvReac Type Severity Reaction Status Date / Time Sulfa (Sulfonamide Allergy Mild RASH Verified 07/29/24 16:27 Antibiotics) Review of Systems Review of Systems Narrative: Pertinent positive and negative findings as per HPI Patient History Medical History Mild cognitive disorder Acute kidney injury Appendicitis with perforation Vertigo Sedentary lifestyle Stage II pressure ulcer of sacral region (~02/2023) Hyperlipidemia Thyroid nodule Incontinence Breast screening Abnormal mammogram of left breast NSTEMI (non-ST elevated myocardial infarction) (09/2018) Recent heart attack Coronary artery disease Osteopenia (05/20/14) Knee osteoarthritis Hypertension (~2011) Diabetes mellitus (~2011) Rheumatoid arthritis Colon polyps (08/31/14) Surgical History History of bilateral knee replacement (2009) History of colonoscopy with polypectomy (08/31/14) History of left cataract surgery (03/23/15) History of right cataract surgery (04/06/15) Anesthesia History of knee replacement History of knee replacement Status post delivery (12/21/78) Family History Brother Drowning Father Heart disease Mother Diabetes mellitus Sister Bone cancer Sister Bone cancer Social History marital status: household members: none Smoking Status: Never smoker alcohol intake: current substance use type: does not use Smoking Status: Never smoker alcohol intake frequency: holidays/special occasions only Alcohol type: hard liquor Exam Initial Vital Signs Initial Vital Signs: Vital Signs Temperature 98 F 10/26/24 07:55 Pulse Rate 80 10/26/24 07:55 Respiratory Rate 18 10/26/24 07:55 Blood Pressure 125/60 10/26/24 07:55 Pulse Oximetry 98 10/26/24 07:55 Oxygen Delivery Method Room Air 10/26/24 07:55 General: Chronically ill-appearing woman, brought in by medics complaining of left upper arm pain and left hip pain HEENT: Moist mucous membranes, normal sclera with reactive pupils, Neck: No JVD, supple Respiratory: Lungs with minor scattered wheezing that resolves with deep breathing Cardiac: Regular rate no murmurs appreciated Abdomen: Soft, tender with palpation throughout with tenderness over the left iliac crest Chest: Some tenderness along the upper thorax particularly on the left. Skin: Pale, she has some minor pressure wound without skin breakdown developing over external area of the left hip and upper lateral left thigh. Intertrigo appreciated. Some chronic redness without significant breakdown over ischial tuberosities bilaterally Neurologic: Globally weak but otherwise able to move all extremities. She complains that both lower extremities are numb secondary to ?being asleep? due to being same position for an extended period time Extremities: Horizontal area of redness over the left upper arm is if she was leaning against a covered as she describes. Tenderness in the area Psych: Cooperative, appropriate insight and affect Course Orders Ordered: ED Orders 10/26/24 08:10 CT chest abd pel wo con Stat XR humerus LT 2V Stat 10/26/24 08:11 CT head/brain wo con Stat 10/26/24 08:58 Urinalysis and Microscopic Stat Urine Culture Stat 10/26/24 09:08 Complete Blood Count AUTO DIFF Stat Comprehensive Metabolic Panel Stat Lactate (Lactic Acid) Stat Magnesium Stat NT-proBNP (BNP-Adult 18+) Stat Procalcitonin Stat Troponin I Stat Discontinued Medications Acetaminophen (Acetaminophen 325 Mg Tablet) 650 mg PO NOW ONE Stop: 10/26/24 12:29 Ceftriaxone Sodium 2,000 mg/ (Sodium Chloride) 100 mls @ 200 mls/hr IV NOW ONE Stop: 10/26/24 11:12 Last Infusion: 10/26/24 11:55 Dose: Infused Documented By: Admin: 10/26/24 11:18 Dose: 200 mls/hr Documented By: JOSE ELIAS Vital Signs Vital signs: Vital Signs - 8 hr 10/26/24 07:55 10/26/24 08:09 10/26/24 08:09 Temperature 98 F Pulse Rate 80 80 Respiratory Rate 18 18 Blood Pressure 125/60 125/60 Pulse Oximetry 98 99 Oxygen Delivery Method Room Air 10/26/24 09:00 10/26/24 09:02 10/26/24 09:02 Temperature Pulse Rate 85 Respiratory Rate 16 Blood Pressure 150/69 H Pulse Oximetry 99 Oxygen Delivery Method 10/26/24 09:30 10/26/24 09:30 10/26/24 10:00 Temperature 98 F Pulse Rate 77 78 Respiratory Rate 17 12 Blood Pressure 133/62 Pulse Oximetry 98 98 Oxygen Delivery Method Room Air 10/26/24 10:00 10/26/24 10:30 10/26/24 10:30 Temperature Pulse Rate 81 Respiratory Rate 19 Blood Pressure 137/63 147/65 H Pulse Oximetry 96 Oxygen Delivery Method 10/26/24 11:00 10/26/24 11:00 Temperature 97.5 F L Pulse Rate 78 Respiratory Rate 14 Blood Pressure 124/57 L Pulse Oximetry 95 Oxygen Delivery Method Room Air Medical Decision Making Lab Data 10/26/24 09:08 10/26/24 09:08 Labs: Lab Results 10/26/24 10/26/24 Range/Units 08:58 09:08 WBC 14.4 H (4.5-11.0) X10^3/uL RBC 4.29 (4.0-5.2) X10^6/uL Hgb 11.4 L (12.0-16.0) g/dL Hct 34.4 L (36-46) % MCV 80.3 (80-100) fL MCH 26.5 (26-34) PG MCHC 33.1 (30-36) % RDW 14.3 (11.6-14.8) % Plt Count 283 (150-400) X10^3/uL Neut % (Auto) 86.4 H (50-75) % Lymph % (Auto) 6.9 L (25-40) % [place] % (Auto) 5.6 (3-14) % Eos % (Auto) 0.2 L (2-4) % Baso % (Auto) 0.9 (0-2) % Neut # (Auto) 28280 H (5504-8773) /uL Lymph # (Auto) 1000 L (2770-7914) /uL [place] # (Auto) 800 (0-900) /uL Eos # (Auto) 0 (0-450) /uL Baso # (Auto) 100 (0-100) /uL Sodium 135 L (137-145) mmol/L Potassium 4.1 (3.4-5.1) mmol/L Chloride 103 (98-107) mmol/L Carbon Dioxide 26 (22-32) mmol/L BUN 23 H (7-17) mg/dL Creatinine 1.21 H (0.52-1.04) mg/dL Estimated GFR 48 L (>60) mL/min BUN/Creatinine Ratio 19.0 (6-22) Glucose 140 H (80-110) mg/dL Lactate 1.5 (0.7-2.1) mmol/L Calcium 9.1 (8.4-10.2) mg/dL Magnesium 1.6 (1.6-2.3) mg/dL Total Bilirubin 0.5 (0.2-1.3) mg/dL AST 39 H (14-36) IU/L ALT 24 (<35) IU/L Alkaline Phosphatase 74 (38-126) U/L Troponin I 0.032 (0.01-0.034) ng/mL NT-Pro-B Natriuret Pep 1890 H (<125) pg/mL Total Protein 7.2 (6.3-8.2) g/dL Albumin 3.8 (3.5-5.0) g/dL Globulin 3.4 (1.7-4.1) g/dL Albumin/Globulin Ratio 1.1 (1.0-2.8) Procalcitonin 0.060 (<0.5) ng/mL Urine Color Brown Urine Appearance Cloudy Urine pH 8.0 (4.5-8.0) Ur Specific [place] 1.010 (1.000-1.035) Urine Protein 2+ H (Negative) Urine Glucose (UA) Negative (Negative) g/dL Urine Ketones Negative (NEGATIVE) Urine Occult Blood 3+ H (Negative) Urine Nitrate Negative (Negative) Urine Bilirubin Negative (NEGATIVE) Urine Urobilinogen 1.0 (0.2) E.U./dL Ur Leukocyte Esterase 2+ H (NEGATIVE) Urine RBC 30-100/hpf H (0-5/HPF) Urine WBC 10-30/hpf H (0-5/HPF) Ur Squamous Epith Cells None seen (0-5/HPF) Urine Bacteria Many (>30) H (None) Ur Culture Indicated? Specimen cultured Vol Urine Centrifuged 10ml (spun) Point of Care Testing Glucose POC 161 Point of care testing: Point of Care Testing Glucose POC [address] chest abdomen pelvis: Radiologist's Impression: PROCEDURE: CT CHEST ABD PEL WO CON INDICATIONS: trauma TECHNIQUE: After the administration of oral contrast, 5 mm thick sections acquired from the lung apices to the symphysis pubis. 5 mm thick coronal and sagittal reformats acquired, with additional 7 mm coronal MIP reformats through the lungs. For radiation dose reduction, the following was used: automated exposure control, adjustment of mA and/or kV according to patient size. COMPARISON: [facility], CT, CT ANGIO CHEST PE PROTOCOL, 06/04/2023, 17:51. FINDINGS: Image quality: Diagnostic. CHEST: Lower Neck: No enlarged lymph nodes. Thyroid: Low-attenuation and calcifications are present, unchanged. Axillae: No enlarged lymph nodes. Chest Wall: Unremarkable. Bones: Unremarkable. Lungs and Pleura: No pneumothorax or pleural effusions. No consolidation or suspicious nodules. Heart: Heart size is normal. Trace pericardial effusion. Thoracic Vessels: The aorta and pulmonary arteries demonstrate normal size. Mediastinum and Luz Elena: No enlarged lymph nodes. Esophagus: No wall thickening. Moderate hiatal hernia. ABDOMEN: Liver: No solid mass. Gallbladder: No radiopaque gallstones or wall thickening. Biliary ducts: No biliary dilation. Pancreas: No ductal dilation. Spleen: Size is within normal limits. Adrenal Glands: No adrenal nodules. Kidneys and Ureters: Bilateral nonobstructing renal calculi. The largest is on the right measuring 6 mm, Hounsfield units 382. The largest calcification on the left is in the pelvis measuring 1.1 cm, Hounsfield units 483. Stomach and Bowel: Normal colonic caliber, without significant wall thickening. Peritoneum: No abnormal intraperitoneal fluid. No free air. Ventral Wall: No hernia. Abdominal Nodes: No retroperitoneal or mesenteric adenopathy by size criteria. Vessels: Aorta and inferior vena cava are normal in size. PELVIS: Pelvic Organs: Unremarkable. Bladder: Unremarkable. Pelvic Nodes: No enlarged lymph nodes. Miscellaneous: No inguinal hernias are seen. Bones: No aggressive osseous abnormality. IMPRESSION: No visualized acute osseous or visceral injury. Bilateral nonobstructing renal calculi. Dictated by: Nati Gil M.D. on 10/26/2024 at 9:02 MDM Narrative Medical decision making narrative: CC: Fall, unknown downtime Complicating co-morbidities: Chronic atrial fibrillation, anticoagulated, diabetes, hypertension, hyperlipidemia Data collected from: patient, medics Social determinants of health that may influence the patients condition: Medical records reviewed: Discharge summary from July 25 with the admission for chest pain is reviewed ER visit on August 25 for lower extremity edema is reviewed Differential considered: Intracranial injury, cervical spine injury, proximal humerus fracture, left shoulder injury, rib fractures, intra-abdominal injuries, pelvic fracture, hip fracture Exam documented above, pertinent findings include: Older appearing, weak, tender with compression of her ribcage, cervical spine, upper left arm left hip and minor tenderness throughout the abdomen without rebound or guarding Lab Test results independently reviewed as above. Pertinent findings: CBC shows mild leukocytosis at 14.4 with left shift at 86.4%. Chronic stable anemia Chemistries are reassuring, baseline renal insufficiency is stable ProBNP is minimally elevated at 1890, similar to prior study Troponin is not elevated Procalcitonin is not elevated Urine does show protein, blood, leukocyte esterase, red cells, white cells, bacteria. She does have chronic kidney stones that are nonobstructing that likely explain the increased red cells. It suspect she also has a urinary tract infection and this will be treated. Samples cultured. Most recent positive urine culture was in January of 2024 showed E coli resistant to ampicillin Cipro levo and trimethoprim sulfamethoxazole. It was sensitive to cephalosporins. Imaging studies independently reviewed: CT scan of the head shows no intracranial CT scan of the chest abdomen and pelvis shows no fractures or acute abnormalities X-ray of the upper arm does not suggest any fracture Treatments: Ceftriaxone Discussion: 74-year-old woman with slumped to the floor last night. Was not strong enough to roll over off of her left hip or to stand up. Family member found her within a couple of hours. She is complaining of a possible head injury with the head laying on the linoleum. CT scan does not show any abnormal findings. CT scan of the chest abdomen and pelvis is similarly unremarkable with no evidence of rib fractures, pulmonary contusion, pneumothorax, new compression fractures, pelvic fractures, hip fracture. Skin has some minor pressure areas where she was lying, with her ER stay those have resolved simply with repositioning. There was no evidence of rhabdomyolysis. She is incidentally noted to have a urinary tract infection. She is currently asymptomatic. Based on E coli sample positive in January of last year she is given ceftriaxone and 5 additional days Keflex. At this point she has not meeting any criteria for hospital admission, no indication for additional imaging or further studies. Mobility trial is done in the emergency department, with a walker, She is safe for discharge Discharge Plan Departure Patient Disposition: Home Clinical Impression: Acute UTI Fall Qualifiers: Encounter type: initial encounter Qualified Code(s): W19.XXXA - Unspecified fall, initial encounter Contusion of hip, left Qualifiers: Encounter type: initial encounter Qualified Code(s): S70.02XA - Contusion of left hip, initial encounter Contusion of arm, left Qualifiers: Encounter type: initial encounter Qualified Code(s): S40.022A - Contusion of left upper arm, initial encounter Instructions: DI for Urinary Tract Infection (UTI), DI for Trauma Activity Restrictions/Additional Instructions: Thank you for coming in You did not break anything, you did bruise your hip and your arm. You did not cause any problem to your muscles by being on the floor after your fall. I am not seeing any signs of heart attack, heart failure, overwhelming infection, significant electrolyte abnormalities or reasons that you need to stay in the hospital today You did have an incidental bladder infection, you are given ceftriaxone, an antibiotic, in the emergency department but need to finish 5 days of oral Keflex and this has been electronically transmitted to [employer]. I based your treatment on prior bladder infection culture and sensitivities from January of last year If you find that you are getting worse or develop any new symptoms, please feel free to return to the emergency department for further evaluation. Prescriptions: New cephalexin 500 mg capsule 500 mg PO TID Qty: 15 0RF No Action (DME) pen needle, diabetic [Comfort EZ Pen Ethel] 29 gauge x 1/2 needle See Rx Instructions .ROUTE .MEDSUPPLY Qty: 100 3RF Rx Instructions: use to check blood glucose 3x per day insulin glargine [Lantus Solostar U-100 Insulin] 100 unit/mL (3 mL) insulin pen 40 unit SUBCUT QAM Qty: 15 3RF amiodarone 200 mg tablet 200 mg PO BID Qty: 180 1RF Rx Instructions: Hold while on fluconazole (DME) True Metrix Glucose Test Strip Strip See Rx Instructions .ROUTE .COMPLEX Qty: 100 3RF Dose Instruction: USE TO TEST BLOOD SUGAR DAILY Rx Instructions: USE TO TEST BLOOD SUGAR DAILY Eliquis 5 mg tablet 5 mg PO BID Qty: 180 2RF Ozempic 1 mg/dose (4 mg/3 mL) pen injector 1 mg SUBCUT QWEEK Qty: 3 1RF (DME) Parking Permit... See Rx Instructions .Route .MEDSUPPLY Qty: 1 0RF Rx Instructions: Patient meets criteria for permanent parking placard. metoprolol succinate 50 mg tablet extended release 24 hr 50 mg PO DAILY Qty: 90 3RF diltiazem HCl 120 mg capsule,extended release 12 hr 240 mg PO BID Qty: 180 3RF clopidogrel 75 mg tablet 75 mg PO QAM Qty: 90 3RF metformin 500 mg tablet 1,000 mg PO BID Qty: 360 3RF Rx Instructions: TAKE TWO TABLETS BY MOUTH TWICE DAILY nitroglycerin 0.4 mg tablet, sublingual 0.4 mg SL Q5-15M PRN (Reason: chest pain) Qty: 90 11RF Patient Comments: patient has prescription but has not taken yet Rx Instructions: until response; do not exceed 3 doses per episode atorvastatin [Lipitor] 80 mg tablet 80 mg PO QPM nystatin 100,000 unit/gram cream 1 applic topical TID vancomycin 125 mg Capsule 125 mg PO Q6H Qty: 40 0RF Referrals: Chino Ruggiero MD [Primary Care Provider] - Stand Alone Forms: Patient Portal/API/Survey
--- NOTE | 2024-10-26 08:10 | DI.CT.S_ITS ---
PROCEDURE: CT CHEST ABD PEL WO CON INDICATIONS: trauma TECHNIQUE: After the administration of oral contrast, 5 mm thick sections acquired from the lung apices to the symphysis pubis. 5 mm thick coronal and sagittal reformats acquired, with additional 7 mm coronal MIP reformats through the lungs. For radiation dose reduction, the following was used: automated exposure control, adjustment of mA and/or kV according to patient size. COMPARISON: [facility], CT, CT ANGIO CHEST PE PROTOCOL, 06/04/2023, 17:51. FINDINGS: Image quality: Diagnostic. CHEST: Lower Neck: No enlarged lymph nodes. Thyroid: Low-attenuation and calcifications are present, unchanged. Axillae: No enlarged lymph nodes. Chest Wall: Unremarkable. Bones: Unremarkable. Lungs and Pleura: No pneumothorax or pleural effusions. No consolidation or suspicious nodules. Heart: Heart size is normal. Trace pericardial effusion. Thoracic Vessels: The aorta and pulmonary arteries demonstrate normal size. Mediastinum and Luz Elena: No enlarged lymph nodes. Esophagus: No wall thickening. Moderate hiatal hernia. ABDOMEN: Liver: No solid mass. Gallbladder: No radiopaque gallstones or wall thickening. Biliary ducts: No biliary dilation. Pancreas: No ductal dilation. Spleen: Size is within normal limits. Adrenal Glands: No adrenal nodules. Kidneys and Ureters: Bilateral nonobstructing renal calculi. The largest is on the right measuring 6 mm, Hounsfield units 382. The largest calcification on the left is in the pelvis measuring 1.1 cm, Hounsfield units 483. Stomach and Bowel: Normal colonic caliber, without significant wall thickening. Peritoneum: No abnormal intraperitoneal fluid. No free air. Ventral Wall: No hernia. Abdominal Nodes: No retroperitoneal or mesenteric adenopathy by size criteria. Vessels: Aorta and inferior vena cava are normal in size. PELVIS: Pelvic Organs: Unremarkable. Bladder: Unremarkable. Pelvic Nodes: No enlarged lymph nodes. Miscellaneous: No inguinal hernias are seen. Bones: No aggressive osseous abnormality. IMPRESSION: No visualized acute osseous or visceral injury. Bilateral nonobstructing renal calculi. Dictated by: Nati Gil M.D. on 10/26/2024 at 9:02 Approved by: Nati Gil M.D. on 10/26/2024 at 9:11
--- NOTE | 2024-10-26 08:10 | DI.RAD.S_ITS ---
PROCEDURE: XR HUMERUS LT 2V INDICATIONS: trauma TECHNIQUE: 2 views of the humerus were acquired. COMPARISON: None. FINDINGS: Bones: No fractures or dislocations. No suspicious bony lesions. Soft tissues: No suspicious soft tissue calcifications. IMPRESSION: No visualized acute fracture or dislocation. However, if clinical concern and/or pain persist, short interval imaging followup in 7-10 days is recommended, as occult injury cannot be definitively excluded. Dictated by: Nati Gil M.D. on 10/26/2024 at 9:02 Approved by: Nati Gil M.D. on 10/26/2024 at 9:02
--- NOTE | 2024-10-26 08:11 | DI.CT.S_ITS ---
PROCEDURE: CT HEAD/BRAIN WO CON INDICATIONS: Trauma TECHNIQUE: Noncontrast 4.5 mm thick angled axial sections acquired from the foramen magnum to the vertex, with coronal and sagittal reformats. For radiation dose reduction, the following was used: automated exposure control, adjustment of mA and/or kV according to patient size. COMPARISON: [facility], CT, CT HEAD/BRAIN WO CON, 01/04/2024, 12:28. FINDINGS: Image quality: Diagnostic. CSF spaces: Basal cisterns are patent. No extra-axial fluid collections. The ventricles are symmetric in size and shape. Brain: No intracranial bleeds or masses. There is cerebral volume loss for age, with resultant ventricular and sulcal prominence. There are periventricular and deep white matter chronic small vessel ischemic changes. There is intracranial internal carotid artery atherosclerosis. Encephalomalacia in the right frontal lobe consistent with prior infarction, stable. Skull and face: Calvarium and visualized facial bones appear intact, without suspicious lesions. Sinuses: Visualized sinuses and mastoids are clear. IMPRESSION: 1. No acute intracranial process. 2. Moderate atrophy and chronic microvascular ischemic changes. Dictated by: Nati Gil M.D. on 10/26/2024 at 9:12 Approved by: Nati Gil M.D. on 10/26/2024 at 9:13
[2024-10-26 09:18] LABS: Add Manual Diff / Slide Review NO; Basophils Absolute Auto 100 /uL (0-100); Basophils Percent Auto 0.9 % (0-2); Eosinophils Absolute Auto 0 /uL (0-450); Eosinophils Percent Auto 0.2 % (2-4); Hematocrit 34.4 % (36-46); Hemoglobin 11.4 g/dL (12.0-16.0); Lymphocytes Absolute Auto 1000 /uL (1100-4500); Lymphocytes Percent Auto 6.9 % (25-40); Mean Corpuscular HGB Conc 33.1 % (30-36); Mean Corpuscular Hemoglobin 26.5 PG (26-34); Mean Corpuscular Volume 80.3 fL (80-100); Monocytes Absolute Auto 800 /uL (0-900); Monocytes Percent Auto 5.6 % (3-14); Neutrophils Absolute Auto 12500 /uL (1500-7000); Neutrophils Percent Auto 86.4 % (50-75); Platelet Count 283 X10^3/uL (150-400); Red Blood Cell Count 4.29 X10^6/uL (4.0-5.2); Red Cell Distribution Width 14.3 % (11.6-14.8); White Blood Cell Count 14.4 X10^3/uL (4.5-11.0)
[2024-10-26 09:19] LABS: Appearance Urine UA CLOUDY; Bilirubin Urine UA NEGATIVE (NEGATIVE); Color Urine UA BROWN; Glucose Urine UA NEGATIVE (Negative); Ketones Urine UA NEGATIVE (NEGATIVE); Leukocyte Esterase Urine UA 2+ (NEGATIVE); Nitrite Urine UA NEGATIVE (Negative); Occult Blood Urine UA 3+ (Negative); Protein Urine UA 2+ (Negative); Urine Volume 10mL (spun)
[2024-10-26 09:23] LABS: Bacteria Urine Many (>30); Culture Indicated Urine Specimen Cultured; RBC Urine 30-100/HPF (0-5/HPF); Squamous Epithelial Cell Urine None Seen (0-5/HPF); WBC Urine 10-30/HPF (0-5/HPF)
[2024-10-26 09:29] LABS: Lactate (Lactic Acid) 1.5 mmol/L (0.7-2.1)
[2024-10-26 09:30] LABS: Alanine Aminotransferase 24 IU/L (<35); Albumin 3.8 g/dL (3.5-5.0); Albumin Globulin Ratio 1.1 (1.0-2.8); Alkaline Phosphatase 74 U/L (38-126); Aspartate Aminotransferase 39 IU/L (14-36); Bilirubin Total 0.5 mg/dL (0.2-1.3); Blood Urea Nitrogen 23 mg/dL (7-17); Calcium 9.1 mg/dL (8.4-10.2); Carbon Dioxide 26 mmol/L (22-32); Chloride 103 mmol/L (98-107); Estimated Glomerular Filt Rate 48 mL/min (>60); Globulin 3.4 g/dL (1.7-4.1); Glucose 140 mg/dL (80-110); HEMOLYSIS 20 (0-50); Magnesium 1.6 mg/dL (1.6-2.3); Potassium 4.1 mmol/L (3.4-5.1); Sodium 135 mmol/L (137-145); Total Protein 7.2 g/dL (6.3-8.2)
[2024-10-26 09:39] LABS: NT-proBNP (BNP-Adult 18+) 1890 pg/mL (<125)
[2024-10-26 09:42] LABS: Troponin I 0.032 ng/mL (0.01-0.034)
[2024-10-26] MEDS: cefTRIAXone 2,000 MG in SODIUM CHLORIDE 0.9% 100 ML 200 MG IV (11:18)
--- NOTE | 2024-10-26 12:24 | PC.NURSE ---
standby assist to stand from bed and ambulate with walker, weakness in legs, slow shuffling gate; unable to pull up pants without assistance.
[2024-10-26] MEDS: ACETAMINOPHEN 325 MG TABLET 650 MG PO (12:38)
--- NOTE | 2024-10-26 12:40 | PC.NURSE ---
called and spoke with son Eddie Trav [phone] he will be coming in to pick patient up.
--- NOTE | 2024-10-26 15:46 | CM.SWNOTE ---
ED SHEET HEATER Follow Up Note: Pt is a 74yo female, resident of [place], was seen at the ED after a GLF, discharged home with an incidental finding of UTI. Pt lives in a house with her son, Eddie. Pt's Primary Care Provider is Dr. Chino Ruggiero and insurance is [facility] and [employer]. Reviewed chart, SHEET HEATER consulted for follow up on home health/LTC services. ED SHEET HEATER called pt son, Eddie, and discussed goals of care. Pt son hopeful to have pt see PCP for ED follow up. ED SHEET HEATER offered list of caregivers to be sent to pt son, pt son declined for now and wanted to discuss home health with pt PCP. ED SHEET HEATER sent message to transitional care management team to notify of ED presentation and request for follow up scheduling. Plan: Pt discharged home with son, follow up with PCP when available. VERONICA Monsalve
== END 2024-10-26 13:44 | disposition home or self-care (01) ==
PROVIDERS: Emergency Provider Emergency Medicine; PCP Family Medicine; Referring Provider Emergency Medicine
DX: S70.02XA Contusion of left hip, initial encounter (principal); S40.022A Contusion of left upper arm, initial encounter; N39.0 Urinary tract infection, site not specified; S09.90XA Unspecified injury of head, initial encounter; R42 Dizziness and giddiness; W18.30XA Fall on same level, unspecified, initial encounter
CPT/HCPCS: 70450; 71250; 73060; 74176; 80053; 81001; 83605; 83735; 83880; 84145; 84484; 85025; 87077; 87086; 87186; 96365; 99284; J0696

== ENCOUNTER 2024-11-07 15:18 | Emergency (ER) | payer OTHER, SELFPAY ==
[2024-07-23 23:47] VITALS: BMI 39.6
[2024-11-07] VITALS (11 sets, daily range): BP systolic 119–174; BP diastolic 56–71; PULSE 63–86; RESP 18–20; TEMP 36.8; O2SAT 95–100; BMI 39.6
--- NOTE | 2024-11-07 15:40 | DI.CT.S_ITS ---
PROCEDURE: CT CERVICAL SPINE WO CON INDICATIONS: GLF 2 days ago, hit head, on Eliquis TECHNIQUE: Noncontrast 3 mm thick sections acquired from the skull base to the T4 level. Sagittal and coronal reformats were then constructed. For radiation dose reduction, the following was used: automated exposure control, adjustment of mA and/or kV according to patient size. COMPARISON: [facility], CT, CT CERVICAL SPINE WO CON, 01/04/2024, 12:28. FINDINGS: Image quality: Motion degraded Bones: No fractures or dislocations. Multilevel degenerative changes of the spine. Visualized superior ribs are intact. Soft tissues: Right thyroid lobe nodule measuring at least 2.9 centimeters, incompletely visualized. Prevertebral soft tissues are normal in thickness. No paravertebral hematomas. No apical pneumothoraces. IMPRESSION: No acute cervical spine fracture or traumatic listhesis. Right thyroid lobe nodule measuring at least 2.9 centimeters, recommend nonurgent dedicated thyroid ultrasound if not previously obtained. Dictated by: Miles Levin M.D. on 11/07/2024 at 16:29 Approved by: Miles Levin M.D. on 11/07/2024 at 16:33
--- NOTE | 2024-11-07 15:40 | DI.CT.S_ITS ---
PROCEDURE: CT HEAD/BRAIN WO CON INDICATIONS: GLF 2 days ago, hit head, on Eliquis TECHNIQUE: Noncontrast 4.5 mm thick angled axial sections acquired from the foramen magnum to the vertex, with coronal and sagittal reformats. For radiation dose reduction, the following was used: automated exposure control, adjustment of mA and/or kV according to patient size. COMPARISON: [facility], CT, CT HEAD/BRAIN WO CON, 10/26/2024, 8:19. FINDINGS: Image quality: Diagnostic. CSF spaces: Basal cisterns are patent. No extra-axial fluid collections. Stable mild ex vacuo dilatation of the frontal horn of the right lateral ventricle. Brain: Encephalomalacia is seen next to the frontal horn of the right lateral ventricle, stable compared to prior. No intracranial bleeds or masses. There is cerebral volume loss for age, with resultant ventricular and sulcal prominence. There are periventricular and deep white matter chronic small vessel ischemic changes. There is intracranial internal carotid artery atherosclerosis. Skull and face: Calvarium and visualized facial bones appear intact, without suspicious lesions. Sinuses: Visualized sinuses and mastoids are clear. IMPRESSION: No acute intracranial pathology. Stable chronic findings as described above. Dictated by: Miles Levin M.D. on 11/07/2024 at 16:27 Approved by: Miles Levin M.D. on 11/07/2024 at 16:29
[2024-11-07 16:14] LABS: Add Manual Diff / Slide Review NO; Basophils Absolute Auto 100 /uL (0-100); Basophils Percent Auto 0.8 % (0-2); Eosinophils Absolute Auto 100 /uL (0-450); Hematocrit 36.4 % (36-46); Hemoglobin 11.8 g/dL (12.0-16.0); Lymphocytes Absolute Auto 1200 /uL (1100-4500); Lymphocytes Percent Auto 12.6 % (25-40); Mean Corpuscular HGB Conc 32.5 % (30-36); Mean Corpuscular Hemoglobin 25.9 PG (26-34); Mean Corpuscular Volume 79.7 fL (80-100); Monocytes Absolute Auto 600 /uL (0-900); Monocytes Percent Auto 6.5 % (3-14); Neutrophils Absolute Auto 7500 /uL (1500-7000); Neutrophils Percent Auto 79.1 % (50-75); Platelet Count 303 X10^3/uL (150-400); Red Blood Cell Count 4.57 X10^6/uL (4.0-5.2); Red Cell Distribution Width 14.2 % (11.6-14.8); White Blood Cell Count 9.4 X10^3/uL (4.5-11.0)
[2024-11-07 16:20] LABS: Lactate (Lactic Acid) 1.5 mmol/L (0.7-2.1)
[2024-11-07 17:07] LABS: Appearance Urine UA CLEAR; Bilirubin Urine UA NEGATIVE (NEGATIVE); Color Urine UA YELLOW; Glucose Urine UA NEGATIVE (Negative); Ketones Urine UA NEGATIVE (NEGATIVE); Leukocyte Esterase Urine UA NEGATIVE (NEGATIVE); Nitrite Urine UA NEGATIVE (Negative); Occult Blood Urine UA 3+ (Negative); Protein Urine UA NEGATIVE (Negative); Urobilinogen Urine UA 0.2 E.U./dL (0.2)
[2024-11-07 17:34] LABS: Alanine Aminotransferase 21 IU/L (<35); Albumin 4.1 g/dL (3.5-5.0); Albumin Globulin Ratio 1.1 (1.0-2.8); Alkaline Phosphatase 65 U/L (38-126); Aspartate Aminotransferase 28 IU/L (14-36); BUN Creatinine Ratio 16.8 (6-22); Bilirubin Total 0.4 mg/dL (0.2-1.3); Blood Urea Nitrogen 20 mg/dL (7-17); Calcium 9.1 mg/dL (8.4-10.2); Carbon Dioxide 28 mmol/L (22-32); Chloride 98 mmol/L (98-107); Estimated Glomerular Filt Rate 49 mL/min (>60); Globulin 3.6 g/dL (1.7-4.1); Glucose 179 mg/dL (80-110); HEMOLYSIS < 15 (0-50); Potassium 4.1 mmol/L (3.4-5.1); Sodium 135 mmol/L (137-145); Total Protein 7.7 g/dL (6.3-8.2)
[2024-11-07 17:34] LABS: pH Urine UA 6.5 (4.5-8.0)
[2024-11-07 17:36] LABS: Urine Volume 10mL (spun)
[2024-11-07 17:37] LABS: Bacteria Urine None Seen; RBC Urine 30-100/HPF (0-5/HPF); Squamous Epithelial Cell Urine 0-1 /HPF (0-5/HPF); WBC Urine 1-5/HPF (0-5/HPF)
[2024-11-07 17:38] LABS: Culture Indicated Urine Cult Not Indicated
[2024-11-07] MEDS: cefTRIAXone 1,000 MG in SODIUM CHLORIDE 0.9% 100 ML 200 MG IV (17:48)
--- NOTE | 2024-11-07 18:01 | CM.SWNOTE ---
ED ENTERPRISE SYSTEMS MANAGER Note Patient is 74 y/o female who presents to ED via EMS due to concern for GLFs, this is patient's second GLF this month. An ED ENTERPRISE SYSTEMS MANAGER reached out to patient's son two weeks ago and discussed home care options with preference to speak with PCP, PCP appt is scheduled for 11/04/24 and patient misses appt. Patient's PCP is Dr. Ruggiero, Patient has [facility] [employer] and [employer] insurance. Patient has hx of UTIs, GLFs, Afib, hyperlipidemia, hypertension, diabetes and CAD. ENTERPRISE SYSTEMS MANAGER receives consult due to concern for level of care at home, ability to care for self and wounds. EMS reports concerns for condition of the home and smells of urine and feces. ENTERPRISE SYSTEMS MANAGER calls [facility]ah Rosales, per EMR patient received community consumer electronic retail specialist referral in the spring of last year. ENTERPRISE SYSTEMS MANAGER leaves requesting home visit at his earliest convenience. ENTERPRISE SYSTEMS MANAGER enters room to meet with patient, patient presents as A/Ox4. Patient endorses she lives at home with her son and her grandson lives on the property as well. Patient reports that her son works but they check in on her and make sure she's okay. Patient states things are okay at home. patient states she needs assistance getting up but uses a cane and FWW at baseline, patient states she can get to the bathroom but has difficulty showering due to bathroom set up in home. ENTERPRISE SYSTEMS MANAGER asks about recent missed PCP appt, patient states she did not know she missed an appt. Patient endorses interest in a new PCP appt. RN reports concern for abrasions on extremities and redness on perineal area. Patient has hx of [facility], patient endorses interest for HH referral and agreement to have referral with [facility] again. ENTERPRISE SYSTEMS MANAGER reaches out to Alexandra at [facility] for PT, OT, RN, HH aide and ENTERPRISE SYSTEMS MANAGER. This ENTERPRISE SYSTEMS MANAGER is awaiting ED provider note for referral, ED provider signs F2F. ENTERPRISE SYSTEMS MANAGER contacts PCP office and requests new PCP appt. ENTERPRISE SYSTEMS MANAGER provides patient with senior resource guide, lists of private pay and caregiver agencies, lists of DME resources and [facility] brochure. As a mandated voice writing reporter per W [phone] I have given confidential information about the patient to Adult Protective Services intake team. Intake # Online Report Confirmation Number: [id number] Plan: ED provider to evaluate patient further, patient likely to d/c to home with son upon medical clearance, Uriah Rosales Pending Sale To [facility] [employer] Focus Technician to f/u with patient, [facility] referral pending in place to f/u with patient and patient and family to f/u with resources provided. PCP office to reach out to patient to schedule f/u appt. VERONICA De Souza
--- NOTE | 2024-11-07 18:02 | ED_ITS ---
HPI - General Adult General Chief complaint: Trauma Stated complaint: Fall t-2 left rib pain Time Seen by Provider: 11/07/24 17:23 Source: patient and EMS Mode of arrival: EMS History of Present Illness HPI narrative: 74-year-old female on Eliquis chronic anticoagulation, had ground level fall 2 days ago, struck the back of her head, denies loss of consciousness, denies seizures/shaking activity, has posterior headache that is about the same, not increasing, no nausea or vomiting. She denies weakness to face arm or leg. She ambulates with a cane and sometimes with a walker, and has been able to do so at her usual baseline. She also with the same fall 2 days ago has left lateral chest discomfort, unclear if she hit anything on the way down. She has recent diagnosis of urinary tract infection, was started on an antibiotic, change to a new antibiotic, is taking antibiotics that are dispensed by her son. Denies current frequency of urination or painful urination. No flank area discomfort. No nausea or vomiting. No fevers or chills. Related Data Home Medications Medication Instructions Recorded Confirmed atorvastatin 80 mg tablet (Lipitor) 80 mg PO QPM 06/02/23 07/29/24 nystatin 100,000 unit/gram topical 1 applic topical TID rash 01/16/24 07/29/24 cream Previous Rx's Medication Instructions Recorded Parking Permit... #1 ea 09/08/20 pen needle, diabetic 29 gauge x #100 ea 03/09/2210/16 (Comfort EZ Pen [place]) clopidogrel 75 mg tablet 75 mg PO QAM #90 tabs 11/07/23 diltiazem HCl 120 mg 240 mg (2 x 120 mg) PO BID #180 11/07/23 capsule,extended release 12 hr caps metformin 500 mg tablet 1,000 mg (2 x 500 mg) PO BID #360 11/07/23 tabs metoprolol succinate 50 mg 50 mg PO DAILY #90 tabs 11/07/23 tablet,extended release 24 hr nitroglycerin 0.4 mg sublingual 0.4 mg sublingual Q5-15M PRN chest 11/07/23 tablet pain #90 tabs insulin glargine 100 unit/mL (3 40 unit (0.4 mL) SUBCUT QAM #15 mL 02/11/24 mL) subcutaneous pen (Lantus Solostar U-100 Insulin) amiodarone 200 mg tablet 200 mg PO BID #180 tabs 06/09/24 vancomycin 125 mg capsule 125 mg PO Q6H #40 caps 07/25/24 blood sugar diagnostic (True #100 strips 08/19/24 Metrix Glucose Test Strip) apixaban 5 mg tablet (Eliquis) 5 mg PO BID #180 tabs 09/05/24 semaglutide 1 mg/dose (4 mg/3 mL) 1 mg (0.75 mL) SUBCUT QWEEK #3 mL 10/21/24 subcutaneous pen injector (Ozempic) cephalexin 500 mg capsule 500 mg PO TID #15 caps 10/26/24 cefdinir 300 mg capsule 300 mg PO Q12H #14 caps 10/30/24 Allergies Allergy/AdvReac Type Severity Reaction Status Date / Time Sulfa (Sulfonamide Allergy Mild RASH Verified 11/07/24 15:23 Antibiotics) Patient History Medical History Mild cognitive disorder Acute kidney injury Appendicitis with perforation Vertigo Sedentary lifestyle Stage II pressure ulcer of sacral region (~02/2023) Hyperlipidemia Thyroid nodule Incontinence Breast screening Abnormal mammogram of left breast NSTEMI (non-ST elevated myocardial infarction) (09/2018) Recent heart attack Coronary artery disease Osteopenia (05/20/14) Knee osteoarthritis Hypertension (~2011) Diabetes mellitus (~2011) Rheumatoid arthritis Colon polyps (08/31/14) Surgical History History of bilateral knee replacement (2009) History of colonoscopy with polypectomy (08/31/14) History of left cataract surgery (03/23/15) History of right cataract surgery (04/06/15) Anesthesia History of knee replacement History of knee replacement Status post delivery (12/21/78) Family History Brother Drowning Father Heart disease Mother Diabetes mellitus Sister Bone cancer Sister Bone cancer Social History marital status: household members: none Smoking Status: Never smoker alcohol intake: current substance use type: does not use Smoking Status: Never smoker alcohol intake frequency: holidays/special occasions only Alcohol type: hard liquor Exam Narrative Exam Narrative: GENERAL: Well-developed patient, in mild distress. HEAD: Atraumatic. Normocephalic. Could not palpate any areas of tenderness or swelling to posterior or other aspects of the scalp, no anterior facial injuries obvious. EYES: Pupils equal round and reactive. Extraocular motions intact. No scleral icterus. No injection or drainage. ENT: Nose without bleeding, purulent drainage. Throat without erythema, tonsillar hypertrophy or exudate. Airway patent. NECK: Trachea midline. Non tender midline and paraspinous musculature of the neck. No tenderness the mid upper thoracic spine midline or paraspinous areas. CARDIOVASCULAR: Regular rate and rhythm without murmurs, gallops, or rubs. RESPIRATORY: Clear to auscultation. Breath sounds equal bilaterally. No wheezes, rales, or rhonchi. Left lateral inferior chest wall tenderness, no crepitance or bruising, no laceration or abrasion changes. No flail chest or abnormal movements, no respiratory distress or retractions. GASTROINTESTINAL: Abdomen soft, non-tender, nondistended. Some tenderness left upper quadrant, no guarding or rebound or distention. EXTREMITIES: No edema or joint tenderness. BACK: Nontender without deformity or crepitance. No flank tenderness. NEURO: AOx3. Motor functions grossly nonfocal SKIN: No rash or erythema of visible areas Initial Vital Signs Initial Vital Signs: Vital Signs Temperature 98.2 F 11/07/24 15:24 Pulse Rate 80 11/07/24 15:24 Respiratory Rate 20 11/07/24 15:24 Blood Pressure 121/68 11/07/24 15:24 Pulse Oximetry 99 11/07/24 15:24 Oxygen Delivery Method Room Air 11/07/24 15:24 Course Orders Ordered: ED Orders 11/07/24 17:17 Consult to CEMENT SPRAYER HELPER - Gasoline Plant Operator Stat 11/07/24 17:25 Blood Culture Stat 11/07/24 18:20 Consult to Home Health Stat 11/07/24 18:55 CT chest abd pel w con Stat Discontinued Medications Cefdinir (Cefdinir 300 Mg Capsule) 300 mg PO NOW ONE Stop: 11/07/24 21:46 Last Admin: 11/07/24 21:50 Dose: 300 mg Documented By: AB Ceftriaxone Sodium 1,000 mg/ (Sodium Chloride) 100 mls @ 200 mls/hr IV NOW ONE Stop: 11/07/24 17:33 Last Infusion: 11/07/24 18:23 Dose: Infused Documented By: Admin: 11/07/24 17:48 Dose: 200 mls/hr Documented By: BI Vital Signs Vital signs: Vital Signs - 8 hr 11/07/24 18:00 11/07/24 18:00 11/07/24 18:30 Pulse Rate 74 Blood Pressure 146/65 H 140/66 Pulse Oximetry 99 Oxygen Delivery Method 11/07/24 18:30 11/07/24 19:00 11/07/24 19:00 Pulse Rate 75 78 Blood Pressure 129/57 L Pulse Oximetry 99 99 Oxygen Delivery Method 11/07/24 19:30 11/07/24 19:30 Pulse Rate 78 Blood Pressure 119/56 L Pulse Oximetry 99 Oxygen Delivery Method Room Air Medical Decision Making Lab Data Lab results reviewed: Yes I reviewed the patient's lab results. Lab results narrative: White blood cell count 9400, hemoglobin 11.8, platelets adequate. Sodium 135, potassium 4.1, glucose 179, chloride 98, serum CO2 28, BUN 20 with creatinine 1.19. Urinalysis with slight hematuria but no chemical markers of infection, negative bacteria, does not meet criteria for culture at this time. 11/07/24 15:30 11/07/24 15:30 Labs: Lab Results 11/07/24 11/07/24 Range/Units 15:30 16:47 WBC 9.4 (4.5-11.0) X10^3/uL RBC 4.57 (4.0-5.2) X10^6/uL Hgb 11.8 L (12.0-16.0) g/dL Hct 36.4 (36-46) % MCV 79.7 L (80-100) fL MCH 25.9 L (26-34) PG MCHC 32.5 (30-36) % RDW 14.2 (11.6-14.8) % Plt Count 303 (150-400) X10^3/uL Neut % (Auto) 79.1 H (50-75) % Lymph % (Auto) 12.6 L (25-40) % [place] % (Auto) 6.5 (3-14) % Eos % (Auto) 1.0 L (2-4) % Baso % (Auto) 0.8 (0-2) % Neut # (Auto) 7500 H (1314-2091) /uL Lymph # (Auto) 1200 (1924-1901) /uL [place] # (Auto) 600 (0-900) /uL Eos # (Auto) 100 (0-450) /uL Baso # (Auto) 100 (0-100) /uL Sodium 135 L (137-145) mmol/L Potassium 4.1 (3.4-5.1) mmol/L Chloride 98 (98-107) mmol/L Carbon Dioxide 28 (22-32) mmol/L BUN 20 H (7-17) mg/dL Creatinine 1.19 H (0.52-1.04) mg/dL Estimated GFR 49 L (>60) mL/min BUN/Creatinine Ratio 16.8 (6-22) Glucose 179 H (80-110) mg/dL Lactate 1.5 (0.7-2.1) mmol/L Calcium 9.1 (8.4-10.2) mg/dL Total Bilirubin 0.4 (0.2-1.3) mg/dL AST 28 (14-36) IU/L ALT 21 (<35) IU/L Alkaline Phosphatase 65 (38-126) U/L Total Protein 7.7 (6.3-8.2) g/dL Albumin 4.1 (3.5-5.0) g/dL Globulin 3.6 (1.7-4.1) g/dL Albumin/Globulin Ratio 1.1 (1.0-2.8) Urine Color Yellow Urine Appearance Clear Urine pH 6.5 (4.5-8.0) Ur Specific [place] 1.010 (1.000-1.035) Urine Protein Negative (Negative) Urine Glucose (UA) Negative (Negative) g/dL Urine Ketones Negative (NEGATIVE) Urine Occult Blood 3+ H (Negative) Urine Nitrate Negative (Negative) Urine Bilirubin Negative (NEGATIVE) Urine Urobilinogen 0.2 (0.2) E.U./dL Ur Leukocyte Esterase Negative (NEGATIVE) Urine RBC 30-100/hpf H (0-5/HPF) Urine WBC 1-5/hpf (0-5/HPF) Ur Squamous Epith Cells 0-1 /hpf (0-5/HPF) Urine Bacteria None seen (None) Ur Culture Indicated? Cult not indicated Vol Urine Centrifuged 10ml (spun) Imaging Data CT scan - head: Radiologist's Impression: [address] [address] [address] Scan Report Signed Patient: Anuja Parker MR#: [id number] : 1950 Acct:[id number] Age/Sex: 74 / F Date of Service: 11/07/24 Loc: ED Accession Number: [id number] Procedure: CT head/brain wo con Ordering Provider: Valerie Rankin D.O. PROCEDURE: CT HEAD/BRAIN WO CON INDICATIONS: GLF 2 days ago, hit head, on Eliquis TECHNIQUE: Noncontrast 4.5 mm thick angled axial sections acquired from the foramen magnum to the vertex, with coronal and sagittal reformats. For radiation dose reduction, the following was used: automated exposure control, adjustment of mA and/or kV according to patient size. COMPARISON: [facility], CT, CT HEAD/BRAIN WO CON, 10/26/2024, 8:19. FINDINGS: Image quality: Diagnostic. CSF spaces: Basal cisterns are patent. No extra-axial fluid collections. Stable mild ex vacuo dilatation of the frontal horn of the right lateral ventricle. Brain: Encephalomalacia is seen next to the frontal horn of the right lateral ventricle, stable compared to prior. No intracranial bleeds or masses. There is cerebral volume loss for age, with resultant ventricular and sulcal prominence. There are periventricular and deep white matter chronic small vessel ischemic changes. There is intracranial internal carotid artery atherosclerosis. Skull and face: Calvarium and visualized facial bones appear intact, without suspicious lesions. Sinuses: Visualized sinuses and mastoids are clear. IMPRESSION: No acute intracranial pathology. Stable chronic findings as described above. Dictated by: Miles Levin M.D. on 11/07/2024 at 16:27 Approved by: Miles Levin M.D. on 11/07/2024 at 16:29 CT - cervical spine: Radiologist's Impression: [address] [address] [address] Scan Report Signed Patient: Anuja Parker MR#: [id number] : 1950 Acct:[id number] Age/Sex: 74 / F Date of Service: 11/07/24 Loc: ED Accession Number: [id number] Procedure: CT cervical spine wo con Ordering Provider: Valerie Rankin D.O. PROCEDURE: CT CERVICAL SPINE WO CON INDICATIONS: GLF 2 days ago, hit head, on Eliquis TECHNIQUE: Noncontrast 3 mm thick sections acquired from the skull base to the T4 level. Sagittal and coronal reformats were then constructed. For radiation dose reduction, the following was used: automated exposure control, adjustment of mA and/or kV according to patient size. COMPARISON: [facility], CT, CT CERVICAL SPINE WO CON, 01/04/2024, 12:28. FINDINGS: Image quality: Motion degraded Bones: No fractures or dislocations. Multilevel degenerative changes of the spine. Visualized superior ribs are intact. Soft tissues: Right thyroid lobe nodule measuring at least 2.9 centimeters, incompletely visualized. Prevertebral soft tissues are normal in thickness. No paravertebral hematomas. No apical pneumothoraces. IMPRESSION: No acute cervical spine fracture or traumatic listhesis. Right thyroid lobe nodule measuring at least 2.9 centimeters, recommend nonurgent dedicated thyroid ultrasound if not previously obtained. Dictated by: Miles Levin M.D. on 11/07/2024 at 16:29 Approved by: Miles Levin M.D. on 11/07/2024 at 16:33 CT chest abdomen and pelvis: Radiologist's Impression: [place] [address] CT Scan Report Signed Patient: Anuja Parker MR#: [id number] : 1950 Acct:[id number] Age/Sex: 74 / F Date of Service: 11/07/24 Loc: ED Accession Number: [id number] Procedure: CT chest abd pel w con Ordering Provider: Tejas Jameson MD PROCEDURE: CT CHEST ABD PEL W CON INDICATIONS: LUQ tend, recent fall TECHNIQUE: After the administration of intravenous contrast, 5 mm thick sections acquired from the lung apices to the symphysis. 2.5 mm thick coronal and sagittal reformats were acquired. Additional 7 mm thick coronal maximum intensity projection (MIP) reformats acquired through the lungs. Optional 10-minute delayed imaging may be performed from the kidneys to the bladder. For radiation dose reduction, the following was used: automated exposure control, adjustment of mA and/or kV according to patient size. COMPARISON: [facility], CT, CT CHEST ABD PEL WO CON, 10/26/2024, 8:19. FINDINGS: Image quality: Diagnostic. CHEST: Lower Neck: No enlarged lymph nodes. Thyroid: Unchanged appearance low-attenuation foci. Axillae: No enlarged lymph nodes. Chest Wall: No subcutaneous gas. Lungs and Pleura: No pulmonary contusions or lacerations. No acute airspace opacities. No pneumothorax or hemothorax. Mediastinum: No mediastinal hematomas. Heart size is normal. Minimal pericardial effusion. Thoracic aorta and pulmonary arteries demonstrate normal size and enhancement. No mediastinal or hilar adenopathy. Esophagus is normal in caliber. No hiatal hernia. ABDOMEN: Liver: No lacerations. Gallbladder: No radiopaque gallstones or wall thickening. Biliary ducts: No biliary dilation. Pancreas: Homogenous enhancement. Spleen: Homogenous enhancement without laceration or hematoma. Adrenal Glands: Left adrenal thickening. Kidneys and Ureters: Symmetric enhancement. No hydronephrosis. No solid mass. No complex renal cystic lesion which requires follow up. Bilateral nonobstructing renal calcifications. Stomach and Bowel: Normal colonic caliber, without significant wall thickening. Hiatal hernia. Peritoneum: No abnormal intraperitoneal fluid. No free air. Ventral Wall: No hernia. Abdominal Nodes: No retroperitoneal or mesenteric adenopathy by size criteria. Vessels: Aorta and inferior vena cava are normal in size. PELVIS: Pelvic Organs: Unremarkable. Bladder: Normal thickness. Pelvic Nodes: No enlarged lymph nodes. Miscellaneous: No inguinal hernias are seen. Bones: Pelvic ring and hip joints appear intact. No displaced rib fractures. IMPRESSION: No evidence of traumatic injury to the chest, abdomen or pelvis. Dictated by: Nati Gil M.D. on 11/07/2024 at 20:21 Approved by: Nati Gil M.D. on 11/07/2024 at 20:28 MDM Narrative Medical decision making narrative: 74-year-old female on Eliquis chronic anticoagulation who lives with son, arrived by EMS, recent fall 2 days ago with posterior headache, also left lateral chest discomfort. Denies missed doses of any prescription medications. Recent diagnosis of urinary tract infection, says she is receiving antibiotic medications by her son who dispenses the medications. Afebrile on triage, sirs screen negative. No obvious facial or cranial/scalp trauma tenderness crepitance or skin changes. CT head and cervical spine ordered from triage. She also seems to have some chest wall discomfort left lower mid axillary mid clavicular region without skin changes or crepitance. We will add x-ray series left chest with chest x-ray, CT abdomen and pelvis with IV contrast also ordered. Urinalysis shows slight hematuria, no chemical markers for infection, no bacteria, not abnormal enough for urine culture. Discussed with computer field technician, we will change order to CT chest abdomen and pelvis, cancel chest x-ray component. CT chest abdomen and pelvis showed no acute changes. See radiology report Copies of all her CT scans were printed and provided, reviewed with she and her son at bedside. She feels improved and would like to go home, she does not want have alternate placement assessment at this time, CEMENT SPRAYER HELPER consult previously made given her recurrent falls, to see if any home health or other home assistance/modifications could be helpful. Discharged home per request with son. Return precautions discussed Discharge Plan Departure Patient Disposition: Home Clinical Impression: Fall from ground level, Thyroid nodule, Contusion of left chest wall, Abdominal contusion, Urinary tract infection Activity Restrictions/Additional Instructions: New ground level fall tonight with blow to the back your head, left chest and left upper abdominal discomfort. CT imaging of the brain, cervical spine of the neck, chest, abdomen, pelvis was performed and all studies were negative for any acute injury patterns. Recent ED visit here 10/30/2024 for another fall, also found to incidentally have urinary tract infection, prescription sent for cephalexin antibiotic. Urine culture subsequently grew Klebsiella type bacteria, that unfortunately is resistant to your cephalexin antibiotic, and a new prescription for cefdinir antibiotic was sent to your same pharmacy, it is already there waiting for you to pick it up and take. First dose of oral cefdinir given here in the emergency department. Take Tylenol as needed for discomfort. Continue your Eliquis and other chronic medications. You wanted to go back to your home situation, where you live with your son, who was here to pick you up, you did not want to have any further evaluation for alternate living situation at this time. Discharged home. administrative services director consultation, for possible home health or other assist services. You did not want to have alternate living situation placement at this time. Consider repeat urine testing after the completion of your course of antibiotics. Consider further evaluation for your recurrent falling problems. Recheck advised next week with your regular provider to address these and other chronic medical problem issues. Return earlier to this/nearest emergency department for any change worsening symptoms or any concerns prior Prescriptions: No Action (DME) pen needle, diabetic [Comfort EZ Pen [place]] 29 gauge x 1/2 needle See Rx Instructions .ROUTE .MEDSUPPLY Qty: 100 3RF Rx Instructions: use to check blood glucose 3x per day insulin glargine [Lantus Solostar U-100 Insulin] 100 unit/mL (3 mL) insulin pen 40 unit SUBCUT QAM Qty: 15 3RF amiodarone 200 mg tablet 200 mg PO BID Qty: 180 1RF Rx Instructions: Hold while on fluconazole (DME) True Metrix Glucose Test Strip Strip See Rx Instructions .ROUTE .COMPLEX Qty: 100 3RF Dose Instruction: USE TO TEST BLOOD SUGAR DAILY Rx Instructions: USE TO TEST BLOOD SUGAR DAILY Eliquis 5 mg tablet 5 mg PO BID Qty: 180 2RF Ozempic 1 mg/dose (4 mg/3 mL) pen injector 1 mg SUBCUT QWEEK Qty: 3 1RF (DME) Parking Permit... See Rx Instructions .Route .MEDSUPPLY Qty: 1 0RF Rx Instructions: Patient meets criteria for permanent parking placard. metoprolol succinate 50 mg tablet extended release 24 hr 50 mg PO DAILY Qty: 90 3RF diltiazem HCl 120 mg capsule,extended release 12 hr 240 mg PO BID Qty: 180 3RF clopidogrel 75 mg tablet 75 mg PO QAM Qty: 90 3RF metformin 500 mg tablet 1,000 mg PO BID Qty: 360 3RF Rx Instructions: TAKE TWO TABLETS BY MOUTH TWICE DAILY nitroglycerin 0.4 mg tablet, sublingual 0.4 mg SL Q5-15M PRN (Reason: chest pain) Qty: 90 11RF Patient Comments: patient has prescription but has not taken yet Rx Instructions: until response; do not exceed 3 doses per episode atorvastatin [Lipitor] 80 mg tablet 80 mg PO QPM nystatin 100,000 unit/gram cream 1 applic topical TID vancomycin 125 mg Capsule 125 mg PO Q6H Qty: 40 0RF cephalexin 500 mg capsule 500 mg PO TID Qty: 15 0RF cefdinir 300 mg capsule 300 mg PO Q12H Qty: 14 0RF Referrals: Chino Ruggiero MD [Primary Care Provider] - Stand Alone Forms: Patient Portal/API/Survey
--- NOTE | 2024-11-07 18:55 | DI.CT.S_ITS ---
PROCEDURE: CT CHEST ABD PEL W CON INDICATIONS: LUQ tend, recent fall TECHNIQUE: After the administration of intravenous contrast, 5 mm thick sections acquired from the lung apices to the symphysis. 2.5 mm thick coronal and sagittal reformats were acquired. Additional 7 mm thick coronal maximum intensity projection (MIP) reformats acquired through the lungs. Optional 10-minute delayed imaging may be performed from the kidneys to the bladder. For radiation dose reduction, the following was used: automated exposure control, adjustment of mA and/or kV according to patient size. COMPARISON: [facility], CT, CT CHEST ABD PEL WO CON, 10/26/2024, 8:19. FINDINGS: Image quality: Diagnostic. CHEST: Lower Neck: No enlarged lymph nodes. Thyroid: Unchanged appearance low-attenuation foci. Axillae: No enlarged lymph nodes. Chest Wall: No subcutaneous gas. Lungs and Pleura: No pulmonary contusions or lacerations. No acute airspace opacities. No pneumothorax or hemothorax. Mediastinum: No mediastinal hematomas. Heart size is normal. Minimal pericardial effusion. Thoracic aorta and pulmonary arteries demonstrate normal size and enhancement. No mediastinal or hilar adenopathy. Esophagus is normal in caliber. No hiatal hernia. ABDOMEN: Liver: No lacerations. Gallbladder: No radiopaque gallstones or wall thickening. Biliary ducts: No biliary dilation. Pancreas: Homogenous enhancement. Spleen: Homogenous enhancement without laceration or hematoma. Adrenal Glands: Left adrenal thickening. Kidneys and Ureters: Symmetric enhancement. No hydronephrosis. No solid mass. No complex renal cystic lesion which requires follow up. Bilateral nonobstructing renal calcifications. Stomach and Bowel: Normal colonic caliber, without significant wall thickening. Hiatal hernia. Peritoneum: No abnormal intraperitoneal fluid. No free air. Ventral Wall: No hernia. Abdominal Nodes: No retroperitoneal or mesenteric adenopathy by size criteria. Vessels: Aorta and inferior vena cava are normal in size. PELVIS: Pelvic Organs: Unremarkable. Bladder: Normal thickness. Pelvic Nodes: No enlarged lymph nodes. Miscellaneous: No inguinal hernias are seen. Bones: Pelvic ring and hip joints appear intact. No displaced rib fractures. IMPRESSION: No evidence of traumatic injury to the chest, abdomen or pelvis. Dictated by: Nati Gil M.D. on 11/07/2024 at 20:21 Approved by: Nati Gil M.D. on 11/07/2024 at 20:28
[2024-11-07] MEDS: CEFDINIR 300 MG CAPSULE PO (21:50)
== END 2024-11-07 22:01 | disposition home or self-care (01) ==
PROVIDERS: Emergency Medicine; Emergency Provider Emergency Medicine; PCP Family Medicine
DX: S30.1XXA Contusion of abdominal wall, initial encounter (principal); S20.212A Contusion of left front wall of thorax, initial encounter; E04.1 Nontoxic single thyroid nodule; N39.0 Urinary tract infection, site not specified; Z79.01 Long term (current) use of anticoagulants; R29.6 Repeated falls; Z79.4 Long term (current) use of insulin; W18.09XA Striking against other object with subsequent fall, initial encounter; R07.81 Pleurodynia; S40.812A Abrasion of left upper arm, initial encounter; S40.811A Abrasion of right upper arm, initial encounter; S80.812A Abrasion, left lower leg, initial encounter; S80.811A Abrasion, right lower leg, initial encounter; R10.12 Left upper quadrant pain; I25.2 Old myocardial infarction; Z86.79 Personal history of other diseases of the circulatory system; I10 Essential (primary) hypertension; E11.9 Type 2 diabetes mellitus without complications; Z88.2 Allergy status to sulfonamides
CPT/HCPCS: 36415; 51701; 70450; 71260; 72125; 74177; 80053; 81001; 83605; 85025; 87040; 96365; 99285; J0696; Q9967

== ENCOUNTER 2024-11-10 17:04 | Emergency (ER) | payer OTHER, SELFPAY ==
[2024-07-23 23:47] VITALS: BMI 39.6
[2024-11-10] VITALS (13 sets, daily range): BP systolic 106–161; BP diastolic 58–86; PULSE 75–92; RESP 11–22; TEMP 36.4; O2SAT 98–99; BMI 39.6
--- NOTE | 2024-11-10 17:16 | DI.RAD.S_ITS ---
PROCEDURE: XR CHEST 1V INDICATIONS: chest pain TECHNIQUE: One view of the chest was acquired. COMPARISON: [facility], CR, XR CHEST 1V, 08/23/2024, 18:53. [facility], CR, XR CHEST 1V, 07/23/2024, 17:51. FINDINGS: Surgical changes and devices: None. Lungs and pleura: Lungs are clear. No pleural effusions or pneumothorax. Mediastinum: Mediastinal contours appear normal. Heart size is likely enlarged. Bones and chest wall: No suspicious bony lesions. Overlying soft tissues appear unremarkable. IMPRESSION: No acute cardiopulmonary abnormality is seen. Dictated by: Yves Bush M.D. on 11/10/2024 at 17:45 Approved by: Yves Bush M.D. on 11/10/2024 at 17:45
--- NOTE | 2024-11-10 17:18 | EKG_ITS ---
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
[2024-11-10 17:37] LABS: Add Manual Diff / Slide Review NO; Basophils Absolute Auto 100 /uL (0-100); Basophils Percent Auto 0.6 % (0-2); Eosinophils Absolute Auto 100 /uL (0-450); Eosinophils Percent Auto 0.8 % (2-4); Hematocrit 34.1 % (36-46); Hemoglobin 11.2 g/dL (12.0-16.0); Lymphocytes Absolute Auto 1100 /uL (1100-4500); Lymphocytes Percent Auto 11.8 % (25-40); Mean Corpuscular HGB Conc 32.7 % (30-36); Mean Corpuscular Hemoglobin 26.2 PG (26-34); Mean Corpuscular Volume 80.1 fL (80-100); Monocytes Absolute Auto 700 /uL (0-900); Monocytes Percent Auto 7.6 % (3-14); Neutrophils Absolute Auto 7100 /uL (1500-7000); Neutrophils Percent Auto 79.2 % (50-75); Platelet Count 293 X10^3/uL (150-400); Red Blood Cell Count 4.25 X10^6/uL (4.0-5.2); Red Cell Distribution Width 14.8 % (11.6-14.8); White Blood Cell Count 8.9 X10^3/uL (4.5-11.0)
[2024-11-10 17:44] LABS: INR 1.1 (0.9-1.3); Prothrombin Time 12.4 SECONDS (9.4-12.5)
[2024-11-10 17:46] LABS: PTT Partial Thromboplastin Tim 31 SECONDS (25.1-36.5)
[2024-11-10 17:51] LABS: Alanine Aminotransferase 22 IU/L (<35); Albumin 3.9 g/dL (3.5-5.0); Albumin Globulin Ratio 1.1 (1.0-2.8); Alkaline Phosphatase 65 U/L (38-126); Aspartate Aminotransferase 28 IU/L (14-36); BUN Creatinine Ratio 19.4 (6-22); Bilirubin Total 0.5 mg/dL (0.2-1.3); Blood Urea Nitrogen 24 mg/dL (7-17); Calcium 9.2 mg/dL (8.4-10.2); Carbon Dioxide 26 mmol/L (22-32); Chloride 104 mmol/L (98-107); Creatine Kinase 99 U/L (30-135); Estimated Glomerular Filt Rate 46 mL/min (>60); Globulin 3.5 g/dL (1.7-4.1); Glucose 175 mg/dL (80-110); HEMOLYSIS < 15 (0-50); Lipase 153 U/L (23-300); Magnesium 1.7 mg/dL (1.6-2.3); Potassium 4.2 mmol/L (3.4-5.1); Sodium 136 mmol/L (137-145); Total Protein 7.4 g/dL (6.3-8.2)
[2024-11-10 18:02] LABS: NT-proBNP (BNP-Adult 18+) 1210 pg/mL (<125); Troponin I 0.025 ng/mL (0.01-0.034)
--- NOTE | 2024-11-10 20:06 | PC.NURSE ---
pain is in left lower anterior ribs, reproducible with movement. She reports she had a fall a week ago and fell onto left side and back. Since then has had pain in left ribs. No pain while lying still. States is not the same pain as heart attack last year.
--- NOTE | 2024-11-10 20:07 | PC.NURSE ---
Patient has various small ulcerations/sores on buttocks and lower legs in different stages of healing. no redness or drainage of pus from sores.
--- NOTE | 2024-11-10 20:08 | PC.NURSE ---
Patient required 1-2 person assistto get from wheelchair to bed.
[2024-11-10 20:09] LABS: Troponin I 0.027 ng/mL (0.01-0.034)
--- NOTE | 2024-11-10 22:43 | ED.CHESTPAIN ---
HPI - Chest Pain General Chief Complaint: Chest Pain Stated Complaint: chest px, feverish Time Seen by Provider: 11/10/24 21:44 Source: patient and family Mode of arrival: Wheelchair Limitations: no limitations History of Present Illness HPI narrative: 74-year-old female complains of left anterior sharp chest pain, after fall last week, worse with inspiration, not particularly worse with isolated movements of the left arm. She takes blood thinner medications. No bruising at her chest area. No other injuries recalled. She denies injury to her head, neck, upper back, lower back. She denies injuries to her upper extremities and to her lower extremities. She does not have any shortness of breath, fevers, chills, coughing. Related Data Home Medications Medication Instructions Recorded Confirmed atorvastatin 80 mg tablet (Lipitor) 80 mg PO QPM 06/02/23 07/29/24 nystatin 100,000 unit/gram topical 1 applic topical TID rash 01/16/24 07/29/24 cream Previous Rx's Medication Instructions Recorded Parking Permit... #1 ea 09/08/20 pen needle, diabetic 29 gauge x #100 ea 03/09/2210/16 (Comfort EZ Pen [place]) clopidogrel 75 mg tablet 75 mg PO QAM #90 tabs 11/07/23 diltiazem HCl 120 mg 240 mg (2 x 120 mg) PO BID #180 11/07/23 capsule,extended release 12 hr caps metformin 500 mg tablet 1,000 mg (2 x 500 mg) PO BID #360 11/07/23 tabs metoprolol succinate 50 mg 50 mg PO DAILY #90 tabs 11/07/23 tablet,extended release 24 hr nitroglycerin 0.4 mg sublingual 0.4 mg sublingual Q5-15M PRN chest 11/07/23 tablet pain #90 tabs insulin glargine 100 unit/mL (3 40 unit (0.4 mL) SUBCUT QAM #15 mL 02/11/24 mL) subcutaneous pen (Lantus Solostar U-100 Insulin) amiodarone 200 mg tablet 200 mg PO BID #180 tabs 06/09/24 vancomycin 125 mg capsule 125 mg PO Q6H #40 caps 07/25/24 blood sugar diagnostic (True #100 strips 08/19/24 Metrix Glucose Test Strip) apixaban 5 mg tablet (Eliquis) 5 mg PO BID #180 tabs 09/05/24 semaglutide 1 mg/dose (4 mg/3 mL) 1 mg (0.75 mL) SUBCUT QWEEK #3 mL 10/21/24 subcutaneous pen injector (Ozempic) cephalexin 500 mg capsule 500 mg PO TID #15 caps 10/26/24 cefdinir 300 mg capsule 300 mg PO Q12H #14 caps 10/30/24 Allergies Allergy/AdvReac Type Severity Reaction Status Date / Time Sulfa (Sulfonamide Allergy Mild RASH Verified 11/07/24 15:23 Antibiotics) Patient History Medical History Mild cognitive disorder Acute kidney injury Appendicitis with perforation Vertigo Sedentary lifestyle Stage II pressure ulcer of sacral region (~02/2023) Hyperlipidemia Thyroid nodule Incontinence Breast screening Abnormal mammogram of left breast NSTEMI (non-ST elevated myocardial infarction) (09/2018) Recent heart attack Coronary artery disease Osteopenia (05/20/14) Knee osteoarthritis Hypertension (~2011) Diabetes mellitus (~2011) Rheumatoid arthritis Colon polyps (08/31/14) Surgical History History of bilateral knee replacement (2009) History of colonoscopy with polypectomy (08/31/14) History of left cataract surgery (03/23/15) History of right cataract surgery (04/06/15) Anesthesia History of knee replacement History of knee replacement Status post delivery (12/21/78) Family History Brother Drowning Father Heart disease Mother Diabetes mellitus Sister Bone cancer Sister Bone cancer Social History marital status: household members: none Smoking Status: Never smoker alcohol intake: current substance use type: does not use Smoking Status: Never smoker alcohol intake frequency: holidays/special occasions only Alcohol type: hard liquor Exam Narrative Exam Narrative: GENERAL: Well-developed patient, in mild distress. HEAD: Atraumatic. Normocephalic. EYES: Pupils equal round and reactive. Extraocular motions intact. No scleral icterus. No injection or drainage. ENT: Nose without bleeding, purulent drainage. Throat without erythema, tonsillar hypertrophy or exudate. Airway patent. NECK: Trachea midline. Non tender CARDIOVASCULAR: Regular rate and rhythm, soft systolic blood pressure 1/6 left upper sternal border, gallops, or rubs. RESPIRATORY: Clear to auscultation. Breath sounds equal bilaterally. No wheezes, rales, or rhonchi. Tenderness left mid lower sternal border without crepitance or bruising, reproduces her chest pain symptoms. No retractions, no paradoxical movements, no crepitance, no subcutaneous air emphysema. GASTROINTESTINAL: Abdomen soft, non-tender, nondistended. EXTREMITIES: No edema or joint tenderness. BACK: Nontender without deformity or crepitance. No flank tenderness. NEURO: AOx3. Motor functions grossly nonfocal SKIN: No rash or erythema of visible areas Initial Vital Signs Initial Vital Signs: Vital Signs Temperature 97.5 F L 11/10/24 17:09 Pulse Rate 92 H 11/10/24 17:09 Respiratory Rate 16 11/10/24 17:09 Blood Pressure 142/67 H 11/10/24 17:09 Pulse Oximetry 98 11/10/24 17:09 Oxygen Delivery Method Room Air 11/10/24 17:09 Course Orders Ordered: Discontinued Medications Aspirin (Aspirin 81 Mg Chew Tab) 324 mg PO NOW ONE Stop: 11/10/24 17:16 Last Admin: 11/10/24 20:02 Dose: Not Given Documented By: DM Vital Signs Vital signs: Vital Signs - 8 hr 11/10/24 22:30 11/10/24 22:31 11/10/24 22:31 Pulse Rate 80 78 Respiratory Rate 18 22 Blood Pressure 157/69 H 11/10/24 23:00 Pulse Rate 79 Respiratory Rate 15 Blood Pressure MDM - Chest Pain Lab Data Attestation: I reviewed the patient's lab results. Lab results narrative: White blood cell count 8900, hemoglobin 11.2, platelets adequate. Basic metabolic panel unremarkable. Liver functions unremarkable. Lipase normal. Troponin measurable but very low similar range x2 studies, negative. 11/10/24 17:30 11/10/24 17:30 Labs: Lab Results 11/10/24 11/10/24 Range/Units 17:30 19:31 WBC 8.9 (4.5-11.0) X10^3/uL RBC 4.25 (4.0-5.2) X10^6/uL Hgb 11.2 L (12.0-16.0) g/dL Hct 34.1 L (36-46) % MCV 80.1 (80-100) fL MCH 26.2 (26-34) PG MCHC 32.7 (30-36) % RDW 14.8 (11.6-14.8) % Plt Count 293 (150-400) X10^3/uL Neut % (Auto) 79.2 H (50-75) % Lymph % (Auto) 11.8 L (25-40) % [place] % (Auto) 7.6 (3-14) % Eos % (Auto) 0.8 L (2-4) % Baso % (Auto) 0.6 (0-2) % Neut # (Auto) 7100 H (3130-7643) /uL Lymph # (Auto) 1100 (8978-2295) /uL [place] # (Auto) 700 (0-900) /uL Eos # (Auto) 100 (0-450) /uL Baso # (Auto) 100 (0-100) /uL PT 12.4 (9.4-12.5) SECONDS INR 1.1 (0.9-1.3) APTT 31 (25.1-36.5) SECONDS Sodium 136 L (137-145) mmol/L Potassium 4.2 (3.4-5.1) mmol/L Chloride 104 (98-107) mmol/L Carbon Dioxide 26 (22-32) mmol/L BUN 24 H (7-17) mg/dL Creatinine 1.24 H (0.52-1.04) mg/dL Estimated GFR 46 L (>60) mL/min BUN/Creatinine Ratio 19.4 (6-22) Glucose 175 H (80-110) mg/dL Calcium 9.2 (8.4-10.2) mg/dL Magnesium 1.7 (1.6-2.3) mg/dL Total Bilirubin 0.5 (0.2-1.3) mg/dL AST 28 (14-36) IU/L ALT 22 (<35) IU/L Alkaline Phosphatase 65 (38-126) U/L Total Creatine Kinase 99 (30-135) U/L Troponin I 0.025 0.027 (0.01-0.034) ng/mL NT-Pro-B Natriuret Pep 1210 H (<125) pg/mL Total Protein 7.4 (6.3-8.2) g/dL Albumin 3.9 (3.5-5.0) g/dL Globulin 3.5 (1.7-4.1) g/dL Albumin/Globulin Ratio 1.1 (1.0-2.8) Lipase 153 (23-300) U/L Imaging Data Chest x-ray: Radiologist's Impression: [address] [address] XRay Report Signed Patient: Anuja Parker MR#: [id number] : 1950 Acct:[id number] Age/Sex: 74 / F Date of Service: 11/10/24 Loc: ED Accession Number: [id number] Procedure: XR chest 1V Ordering Provider: Valerie Rankin D.O. PROCEDURE: XR CHEST 1V INDICATIONS: chest pain TECHNIQUE: One view of the chest was acquired. COMPARISON: [facility], CR, XR CHEST 1V, 08/23/2024, 18:53. [facility], CR, XR CHEST 1V, 07/23/2024, 17:51. FINDINGS: Surgical changes and devices: None. Lungs and pleura: Lungs are clear. No pleural effusions or pneumothorax. Mediastinum: Mediastinal contours appear normal. Heart size is likely enlarged. Bones and chest wall: No suspicious bony lesions. Overlying soft tissues appear unremarkable. IMPRESSION: No acute cardiopulmonary abnormality is seen. Dictated by: Yves Bush M.D. on 11/10/2024 at 17:45 Approved by: Yves Bush M.D. on 11/10/2024 at 17:45 ECG Data Attestation: I personally reviewed and interpreted this ECG as follows: Interpretation: Normal sinus rhythm, LVH with repolarization abnormality. No ST segment elevation changes obvious. IL 180, QRS 98, QTC 482. [facility] Narrative Medical decision making narrative: 74-year-old female with recent fall, left anterior chest discomfort, reproducible chest wall tenderness on palpation. Chest x-ray negative. Other lab studies were sent from triage. EKG with some early repolarization changes, no definite ST segment elevation suggestive of ischemia at this time. Initial troponin negative. We will repeat a 2nd interval troponin. Repeat troponin also negative. Chest discomfort seems to be reproducible left anterior, with recent trauma history, seems most likely consistent with left anterior chest wall contusion cause of her discomfort. Advised to take Tylenol as needed for pain control. Patient feels comfortable with this plan, expressed understanding. Further workup as an outpatient for now. Discharge Plan Departure Patient Disposition: Home Clinical Impression: Chest wall pain, Chest wall contusion Activity Restrictions/Additional Instructions: Recent fall with left anterior chest discomfort, some tenderness on palpation near the sternocostal margin on the left side, without obvious bruising to the skin or skin changes. Normal oxygenation, normal lung sounds, no respiratory distress. Chest x-ray without acute changes, per Radiology report. EKG was done which is not normal, but not obviously suggestive of heart attack. Serial blood tests were also not suggestive of heart attack. Your examination and history seems most likely and most consistent with left anterior chest contusion from your fall, as cause of your left-sided chest discomfort at this time. Further workup for chest discomfort as an outpatient for now. Take Tylenol as needed for pain control. Make sure your deep breathing to help prevent collapse of the lung and increased risk for infection of the lung. Keep taking your regular chronic medications for now at your same current dose regimens. Consider recheck of your lung exam with your regular doctor in clinic in the next 2-3 days. Return earlier to this/nearest emergency department for any change worsening symptoms or any concerns prior Prescriptions: No Action (DME) pen needle, diabetic [Comfort EZ Pen [place]] 29 gauge x 1/2 needle See Rx Instructions .ROUTE .MEDSUPPLY Qty: 100 3RF Rx Instructions: use to check blood glucose 3x per day insulin glargine [Lantus Solostar U-100 Insulin] 100 unit/mL (3 mL) insulin pen 40 unit SUBCUT QAM Qty: 15 3RF amiodarone 200 mg tablet 200 mg PO BID Qty: 180 1RF Rx Instructions: Hold while on fluconazole (DME) True Metrix Glucose Test Strip Strip See Rx Instructions .ROUTE .COMPLEX Qty: 100 3RF Dose Instruction: USE TO TEST BLOOD SUGAR DAILY Rx Instructions: USE TO TEST BLOOD SUGAR DAILY Eliquis 5 mg tablet 5 mg PO BID Qty: 180 2RF Ozempic 1 mg/dose (4 mg/3 mL) pen injector 1 mg SUBCUT QWEEK Qty: 3 1RF (DME) Parking Permit... See Rx Instructions .Route .MEDSUPPLY Qty: 1 0RF Rx Instructions: Patient meets criteria for permanent parking placard. metoprolol succinate 50 mg tablet extended release 24 hr 50 mg PO DAILY Qty: 90 3RF diltiazem HCl 120 mg capsule,extended release 12 hr 240 mg PO BID Qty: 180 3RF clopidogrel 75 mg tablet 75 mg PO QAM Qty: 90 3RF metformin 500 mg tablet 1,000 mg PO BID Qty: 360 3RF Rx Instructions: TAKE TWO TABLETS BY MOUTH TWICE DAILY nitroglycerin 0.4 mg tablet, sublingual 0.4 mg SL Q5-15M PRN (Reason: chest pain) Qty: 90 11RF Patient Comments: patient has prescription but has not taken yet Rx Instructions: until response; do not exceed 3 doses per episode atorvastatin [Lipitor] 80 mg tablet 80 mg PO QPM nystatin 100,000 unit/gram cream 1 applic topical TID vancomycin 125 mg Capsule 125 mg PO Q6H Qty: 40 0RF cephalexin 500 mg capsule 500 mg PO TID Qty: 15 0RF cefdinir 300 mg capsule 300 mg PO Q12H Qty: 14 0RF Referrals: Chino Ruggiero MD [Primary Care Provider] - Stand Alone Forms: Patient Portal/API/Survey
--- NOTE | 2024-11-10 23:16 | PC.NURSE ---
Patient smells like urine, patient was cleaned and depends were soiled. She was found to have multiple areas of skin breakdown in perineum and legs that are all about 1 cm and fairly superficial with no obvious areas of infection. She also has long toenails. She reports increasing weakness in legs. States son is caregiver. I asked her if she was safe and if he was caring for her and not hurting her. She reports she is safe and not being harmed and he is taking good care of her. we are the same he and I so we clash sometimes but he is good to me. She states he can help her into and out of bed and into and out of car and into and out of house. I requested that she contact her primary care for a follow up appointment and encouraged her to seek assistance with home health and home physical therapy given that she is finding it more difficult to be mobile without assistance. I also encouraged her to ask about getting care for her toenails and about getting a hospital bed at home. She verbalizes understanding and states she will reach out to PCP.
== END 2024-11-10 23:22 | disposition home or self-care (01) ==
PROVIDERS: Emergency Medicine; Emergency Provider Emergency Medicine; PCP Family Medicine
DX: R07.89 Other chest pain (principal); S20.212A Contusion of left front wall of thorax, initial encounter; Z88.2 Allergy status to sulfonamides; E78.5 Hyperlipidemia, unspecified; I25.2 Old myocardial infarction; I10 Essential (primary) hypertension; E11.9 Type 2 diabetes mellitus without complications; Z79.4 Long term (current) use of insulin
CPT/HCPCS: 36415; 71045; 80053; 82550; 83690; 83735; 83880; 84484; 85025; 85610; 85730; 93005; 99284

== ENCOUNTER → 2024-11-25 11:29 | Outpatient (CLI) | payer OTHER, SELFPAY ==
[2024-07-23 23:47] VITALS: BMI 39.6
--- NOTE | 2024-11-25 11:31 | DI.RAD.S_ITS ---
PROCEDURE: XR ANKLE RT MIN 3V INDICATIONS: Right Ankle pain, multiple falls TECHNIQUE: 3 views of the ankle were acquired. COMPARISON: None. FINDINGS: Bones: No fractures or dislocations. Ankle mortise is normally aligned. No suspicious bony lesions. Moderate tibiotalar joint space narrowing with periarticular osteophyte formation, most notably anteriorly. Mild diffuse midfoot joint space narrowing with dorsal osteophytosis. Retrocalcaneal plantar spurring. Soft tissues: No tibiotalar joint effusion. Achilles tendon appears normal. Mild diffuse medial lateral soft tissue swelling. Vascular calcifications indicate atherosclerosis. IMPRESSION: 1. No acute fracture. No osseous lesion. If clinical suspicion and/orsymptoms persist, further assessment with repeat plainfilms, or advanced imaging (e.g., CT, MRI, or bone scan) may be helpful for further assessment. 2. Tibiotalar and midfoot joint degeneration. 3. Calcaneal enthesopathy. Dictated by: Lico Felton [facility] Interpreted: Bart Hernández MD on 11/25/2024 at 12:09 Transcribed by: ADEBAYO on 11/25/2024 at 12:13 Approved by: Bart Hernández M.D. on 11/25/2024 at 14:57
[2024-11-25 13:18] LABS: Hemoglobin A1C% w Est Avg Glu 6.6 % (4.0-6.0)
[2024-11-25 13:21] LABS: Alanine Aminotransferase 16 IU/L (<35); Albumin 3.8 g/dL (3.5-5.0); Albumin Globulin Ratio 1.2 (1.0-2.8); Alkaline Phosphatase 74 U/L (38-126); Aspartate Aminotransferase 20 IU/L (14-36); BUN Creatinine Ratio 15.7 (6-22); Bilirubin Total 0.4 mg/dL (0.2-1.3); Blood Urea Nitrogen 20 mg/dL (7-17); Calcium 9.3 mg/dL (8.4-10.2); Carbon Dioxide 27 mmol/L (22-32); Chloride 102 mmol/L (98-107); Estimated Glomerular Filt Rate 45 mL/min (>60); Globulin 3.2 g/dL (1.7-4.1); Glucose 172 mg/dL (80-110); HEMOLYSIS < 15 (0-50); Potassium 4.5 mmol/L (3.4-5.1); Sodium 135 mmol/L (137-145)
[2024-11-25 13:44] LABS: TSH w/ Reflex to FT4 0.81 uIU/mL (0.47-4.68)
== END ==
PROVIDERS: PCP Family Medicine; Referring Provider Family Medicine; Visit Provider Family Medicine
DX: M77.31 Calcaneal spur, right foot (principal); M25.571 Pain in right ankle and joints of right foot; M19.071 Primary osteoarthritis, right ankle and foot; E11.9 Type 2 diabetes mellitus without complications; I10 Essential (primary) hypertension; E04.1 Nontoxic single thyroid nodule; I48.91 Unspecified atrial fibrillation; I25.10 Atherosclerotic heart disease of native coronary artery without angina pectoris; F09 Unspecified mental disorder due to known physiological condition; Z79.4 Long term (current) use of insulin
CPT/HCPCS: 36415; 73610; 80053; 83036; 84443

== ENCOUNTER → 2024-12-09 10:10 | Outpatient (CLI) | payer OTHER, SELFPAY ==
[2024-07-23 23:47] VITALS: BMI 39.6
== END ==
PROVIDERS: PCP Family Medicine; Referring Provider Family Medicine; Visit Provider Surgery
DX: E11.622 Type 2 diabetes mellitus with other skin ulcer (principal); L97.812 Non-pressure chronic ulcer of other part of right lower leg with fat layer exposed; L89.151 Pressure ulcer of sacral region, stage 1; M79.604 Pain in right leg; R23.4 Changes in skin texture; R60.0 Localized edema; L53.8 Other specified erythematous conditions
CPT/HCPCS: 97597; 99213

== ENCOUNTER → 2024-12-17 08:08 | Outpatient (CLI) | payer OTHER, SELFPAY ==
[2024-07-23 23:47] VITALS: BMI 39.6
== END ==
PROVIDERS: PCP Family Medicine; Referring Provider Family Medicine; Visit Provider Surgery
DX: E11.622 Type 2 diabetes mellitus with other skin ulcer (principal); L97.812 Non-pressure chronic ulcer of other part of right lower leg with fat layer exposed; L89.151 Pressure ulcer of sacral region, stage 1; M79.604 Pain in right leg; R23.4 Changes in skin texture; L53.8 Other specified erythematous conditions; L98.8 Other specified disorders of the skin and subcutaneous tissue
CPT/HCPCS: 99213

== ENCOUNTER → 2024-12-23 10:25 | Outpatient (CLI) | payer OTHER, SELFPAY ==
[2024-07-23 23:47] VITALS: BMI 39.6
--- NOTE | 2024-12-23 | OV.WND_ITS ---
PROGRESS NOTE DETAILS PATIENT NAME: HENOK ARCE PATIENT NUMBER: [id number] CLINICIAN: PIYUSH SCHMITZ R.N. PATIENT DATE OF : 1950 PHYSICIAN / TELEGRAPH LINEMAN: AFSHAN GAO PATIENT SUBJECTIVE CHIEF COMPLAINT THIS INFORMATION WAS OBTAINED FROM THE PATIENT. MY RIGHT LEG HAS BEEN HURTING. GENERAL NOTES DIABETIC ULCER OF RIGHT LEG. ALLERGIES SULFA (SULFONAMIDE ANTIBIOTICS) HPI THIS INFORMATION WAS OBTAINED FROM THE PATIENT. THE FOLLOWING HPI ELEMENTS WERE DOCUMENTED FOR THE PATIENT'S WOUND: LOCATION: [facility] DURATION: 10/15/24 CONTEXT: DIABETIC/ARTERIAL ASSOCIATED SIGNS AND SYMPTOMS: PAIN THE PATIENT IS A 74-YEAR-OLD FEMALE WITH DIABETES, CHF, AND CAD WHO RETURNS TODAY FOR FOLLOW UP OF ULCER OF THE RIGHT LOWER EXTREMITY. THE PATIENT IS RECEIVING DRESSING CHANGES WITH IODOFLEX. THE PATIENT REPORTS THAT THE ULCER ON THE RIGHT LOWER EXTREMITY IS STILL VERY PAINFUL HOWEVER SHE HAS NOT NOTED ANY REDNESS, SWELLING, OR DRAINAGE NOR HAS SHE HAD ANY FEVER OR CHILLS. THE PATIENT HAS HAD FREQUENT FALLS BUT IS NOT SURE EXACTLY HOW THE ULCERS DEVELOPED. SHE HAS NEVER HAD ANY SIMILAR PROBLEMS IN THE PAST. THE PATIENT REPORTS A GOOD APPETITE AND DENIES HAVING ANY OTHER RECENT CHANGES IN HER OVERALL HEALTH. THE PATIENT AMBULATES WITH THE USE OF A WALKER. SHE DENIES THE USE OF CIGARETTES. THE PATIENT IS ON ELIQUIS. THE PATIENT HAS NOT YET HAD AN ARTERIAL DOPPLER. THE ULCER OF THE RIGHT LOWER EXTREMITY HAS A NECROTIC ESCHAR AND MEASURES SLIGHTLY LARGER, NO SIGN OF INFECTION. THERE IS A NEW ULCER ON DORSUM OF THE LEFT FOOT WITH ESCHAR. LABS 11/25/24: ELECTROLYTES UNREMARKABLE, GFR 45, HEMOGLOBIN A1C 6.6, LFTS NORMAL 11/10/24: WBC 8.9, HEMOGLOBIN 11.2, HCT 34.1, ELECTROLYTES UNREMARKABLE, GFR 46, LFTS NORMAL MEDICAL HISTORY THIS INFORMATION WAS OBTAINED FROM THE CHART, PATIENT. PATIENT HAS A MEDICAL HISTORY OF: CORONARY ARTERY DISEASE (CAD) TYPE II DIABETES HYPERTENSION HENOK ARCE [id number] 1950 INCONTINENCE KNEE OSTEOARTHRITIS NSTEMI RHEUMATOID ARTHRITIS THYROID NODULE MILD COGNITIVE DISORDER ACUTE KIDNEY INJURY APPENDICITIS WITH PERFORATION VERTIGO HYPERLIPIDEMIA THYROID NODULE INCONTINENCE BREAST SCREENING ADDITIONAL INFORMATION DOES PATIENT HAVE A HISTORY OF CANCER? YES? COMPLETE ALL QUESTIONS.: NO SURGICAL HISTORY THIS INFORMATION WAS OBTAINED FROM THE CHART, PATIENT. PATIENT HAS A SURGICAL HISTORY OF: BILATERAL TKA- CATARACT REMOVAL- DELIVERY- HISTORY OF BILATERAL KNEE REPLACEMENT- HISTORY OF COLONOSCOPY WITH POLYPECTOMY- HISTORY OF RIGHT CATARACT SURGERY- OBJECTIVE VITALS HEIGHT/LENGTH: 62 IN (157.48 CM), WEIGHT: 191.9 LBS (87.23 KGS), BMI: 35.1, TEMPERATURE: 97.7 ?F (36.5 ?C), PULSE: 79 BPM, RESPIRATORY RATE: 18 BREATHS/MIN, BLOOD PRESSURE: 138/59 MMHG, PULSE OXIMETRY: 100 %. PHYSICAL EXAM CONSTITUTIONAL: VITAL SIGNS REVIEWED AND NOTED. GENERALIZED WEAKNESS. IN NO APPARENT DISTRESS. RESPIRATORY: EVEN RESPIRATIONS WITHOUT USE OF ACCESSORY MUSCLES. NO INTERCOASTAL RETRACTIONS NOTED. EVEN AND NON LABORED RESPIRATION. INTEGUMENTARY (HAIR, SKIN): NO ERYTHEMA . PERIWOUND TENDERNESS. SEE WOUND ASSESSMENT. NO RASHES. NEUROLOGICAL: SENSATION: SYMMETRIC FUNCTION BY INFORMAL OBSERVATION. PSYCHIATRIC: ORIENTATION TO TIME, PLACE AND PERSON: NORMAL AFFECT WITH NORMAL THOUGHT PATTERN. ADDITIONAL INFORMATION THE PATIENT'S POTENTIAL TO HEAL IS: FAIR. WOUND ASSESSMENT(S) HENOK ARCE [id number] 1950 WOUND #1 RIGHT, MEDIAL LEG - LOWER IS A CHRONIC BEAR GRADE 2 DIABETIC ULCER ACQUIRED ON 10/15/2024 AND HAS RECEIVED A STATUS OF NOT HEALED. INITIAL WOUND ENCOUNTER MEASUREMENTS ARE 2.4CM LENGTH X 2.8CM WIDTH X 0.1 CM DEPTH, WITH AN AREA OF 6.72 SQ CM AND A VOLUME OF 0.672 CUBIC CM.INITIAL WOUND ENCOUNTER PREVIOUS MEASUREMENTS FROM 12/17/2024 ARE 2.3CM LENGTH X 2CM WIDTH X 0.1CM DEPTH, WITH AN AREA OF 4.6 SQ CM AND A VOLUME OF 0.46 CUBIC CM. ADIPOSE IS EXPOSED. NO TUNNELING HAS BEEN NOTED. NO SINUS TRACT HAS BEEN NOTED. NO UNDERMINING HAS BEEN NOTED. THERE IS A SCANT AMOUNT OF SEROUS DRAINAGE NOTED WHICH HAS NO ODOR. THE PATIENT REPORTS A WOUND PAIN OF LEVEL 8/10. THE WOUND MARGIN IS UNABLE TO ASSESS WOUND BED HAS NO, GRANULATION, NO SLOUGH, YES ESCHAR, NO EPITHELIALIZATION. THE PERIWOUND SKIN EXHIBITED EDEMA, ECCHYMOSIS, ERYTHEMA AND HEMOSIDEROSIS. THE PERIWOUND SKIN DID NOT EXHIBIT BRAWNY INDURATION, EXCORIATION, INDURATION, CALLUS, CREPITUS, FLUCTUANCE, RASH, MACERATION, ATROPHIE ABAD, CYANOSIS, PALLOR AND RUBOR. THE PERIWOUND SKIN WAS DRY/SCALY. THE PERIWOUND SKIN WAS NOT FRIABLE AND MOIST. THE TEMPERATURE OF THE PERIWOUND SKIN IS WNL. PERIWOUND SKIN DOES NOT EXHIBIT SIGNS OR SYMPTOMS OF INFECTION. LOCAL PULSE IS DOPPLER. GENERAL NOTES BRUISED ASTRID-WOUND MEASURED. ADDITIONAL INFORMATION OTHER DEVITALIZED TISSUE PRESENT: BIOFILM DIANA/VASCULAR COMPLETED?: ATTEMPTED DIANA, PT DECLINED DUE TO PAIN. ART US ORDERED 12/09/24. WOUND #2 RIGHT, POSTERIOR LEG - LOWER IS A CHRONIC BEAR GRADE 2 DIABETIC ULCER ACQUIRED ON 10/15/2024 AND HAS RECEIVED A STATUS OF NOT HEALED. INITIAL WOUND ENCOUNTER MEASUREMENTS ARE 1.6CM LENGTH X 1CM WIDTH X 0.1 CM DEPTH, WITH AN AREA OF 1.6 SQ CM AND A VOLUME OF 0.16 CUBIC CM.INITIAL WOUND ENCOUNTER PREVIOUS MEASUREMENTS FROM 12/17/2024 ARE 0.6CM LENGTH X 1.1CM WIDTH X 0.1CM DEPTH, WITH AN AREA OF 0.66 SQ CM AND A VOLUME OF 0.066 CUBIC CM. ADIPOSE IS EXPOSED. NO TUNNELING HAS BEEN NOTED. NO SINUS TRACT HAS BEEN NOTED. NO UNDERMINING HAS BEEN NOTED. THERE IS A SMALL AMOUNT OF SEROSANGUINEOUS DRAINAGE NOTED WHICH HAS NO ODOR. THE PATIENT REPORTS A WOUND PAIN OF LEVEL 8/10. THE WOUND MARGIN IS ATTACHED WOUND BED HAS NO, GRANULATION, NO SLOUGH, YES ESCHAR, NO EPITHELIALIZATION. THE PERIWOUND SKIN EXHIBITED EDEMA, ERYTHEMA AND HEMOSIDEROSIS. THE PERIWOUND SKIN DID NOT EXHIBIT BRAWNY INDURATION, EXCORIATION, INDURATION, CALLUS, CREPITUS, FLUCTUANCE, RASH, MACERATION, ATROPHIE ABAD, CYANOSIS, ECCHYMOSIS, PALLOR AND RUBOR. THE PERIWOUND SKIN WAS DRY/SCALY. THE PERIWOUND SKIN WAS NOT FRIABLE AND MOIST. THE TEMPERATURE OF THE PERIWOUND SKIN IS WNL. PERIWOUND SKIN DOES NOT EXHIBIT SIGNS OR SYMPTOMS OF INFECTION. LOCAL PULSE IS DOPPLER. ADDITIONAL INFORMATION OTHER DEVITALIZED TISSUE PRESENT: BIOFILM DIANA/VASCULAR COMPLETED?: ATTEMPTED DIANA, PT DECLINED DUE TO PAIN. ART US ORDERED 12/09/24. WOUND #4 LEFT FOOT - DORSAL IS AN ACUTE BEAR GRADE 2 DIABETIC ULCER ACQUIRED ON 12/23/2024 AND HAS RECEIVED A STATUS OF NOT HEALED. INITIAL WOUND ENCOUNTER MEASUREMENTS ARE 0.3CM LENGTH X 0.3CM WIDTH X 0.2 CM DEPTH, WITH AN AREA OF 0.09 SQ CM AND A VOLUME OF 0.018 CUBIC CM. ADIPOSE IS EXPOSED. NO TUNNELING HAS BEEN NOTED. NO SINUS TRACT HAS BEEN NOTED. NO UNDERMINING HAS BEEN NOTED. THERE WAS NO DRAINAGE NOTED. THE PATIENT REPORTS A WOUND PAIN OF LEVEL 0/10. THE WOUND MARGIN IS ATTACHED WOUND BED HAS NO, GRANULATION, YES SLOUGH, NO ESCHAR, NO EPITHELIALIZATION. THE PERIWOUND SKIN EXHIBITED EDEMA AND ERYTHEMA. THE PERIWOUND SKIN DID NOT EXHIBIT BRAWNY INDURATION, EXCORIATION, INDURATION, CALLUS, CREPITUS, FLUCTUANCE, RASH, MACERATION, ATROPHIE ABAD, CYANOSIS, ECCHYMOSIS, HEMOSIDEROSIS, PALLOR AND RUBOR. THE PERIWOUND SKIN WAS DRY/SCALY. THE PERIWOUND SKIN WAS NOT FRIABLE AND MOIST. THE TEMPERATURE OF THE PERIWOUND SKIN IS WNL. PERIWOUND SKIN DOES NOT EXHIBIT SIGNS OR SYMPTOMS OF INFECTION. LOCAL PULSE IS PALPABLE. ADDITIONAL INFORMATION OTHER DEVITALIZED TISSUE PRESENT: BIOFILM ASSESSMENT ACTIVE PROBLEMS HENOK ARCE [id number] 1950 ICD-10 (ENCOUNTER DIAGNOSIS) L97.812 - NON-PRESSURE CHRONIC ULCER OF OTHER PART OF RIGHT LOWER LEG WITH FAT LAYER EXPOSED (ENCOUNTER DIAGNOSIS) L97.212 - NON-PRESSURE CHRONIC ULCER OF RIGHT CALF WITH FAT LAYER EXPOSED (ENCOUNTER DIAGNOSIS) E11.622 - TYPE 2 DIABETES MELLITUS WITH OTHER SKIN ULCER (ENCOUNTER DIAGNOSIS) L89.151 - PRESSURE ULCER OF SACRAL REGION, STAGE 1 (ENCOUNTER DIAGNOSIS) B35.9 - DERMATOPHYTOSIS, UNSPECIFIED (ENCOUNTER DIAGNOSIS) L97.522 - NON-PRESSURE CHRONIC ULCER OF OTHER PART OF LEFT FOOT WITH FAT LAYER EXPOSED GENERAL NOTES ULCER RIGHT LOWER EXTREMITY MEASURES LARGER ULCER DORSUM LEFT FOOT THE FOLLOWING FACTORS HAVE BEEN IDENTIFIED THAT MAY AFFECT WOUND HEALING: DEVITALIZED TISSUE BIOFILM DIABETES ANTICOAGULATION OBESITY ADVANCED AGE GOALS: REMOVE DEVITALIZED TISSUE REMOVE AND PREVENT BIOFILM ASSESS ARTERIAL CIRCULATION TREAT FUNGAL RASH WOUND CLOSURE PREVENT RECURRENCE PLAN: ULCER RIGHT LOWER EXTREMITY IS TOO TENDER TO ALLOW FOR DEBRIDEMENT, CONTINUE DRESSING CHANGES WITH IODOFLEX, START DRESSING CHANGES TO THE LEFT FOOT WITH IODOFLEX, START DOXYCYCLINE 100 MG P.O. B.I.D. X7 DAYS, AWAIT RESULTS OF ARTERIAL DOPPLER, CONTINUE PROTEIN SUPPLEMENTATION, E HOB CUSHION FOR PRESSURE OFFLOADING OF SACRUM, FOLLOW UP IN 1 WEEK FOR A RECHECK. PLAN WOUND ORDERS: WOUND #1 RIGHT, MEDIAL LEG - LOWER HAND HYGIENE HAND HYGIENE - WASH HANDS BEFORE AND AFTER WOUND CARE. CALL THE WOUND CENTER AT [phone] IF YOU HAVE SIGNS OR SYMPTOMS OF INFECTION, FEVER CHILLS OR SHAKES, INCREASED DRAINAGE, INCREASED ODOR OR UNUSUAL REDNESS. AFTER WOUND CENTER HOURS PLEASE NOTIFY YOUR PCP OR GO TO THE EMERGENCY ROOM. CLEANSER CLEANSE WOUND WITH NORMAL SALINE - YOU MAY ALSO PURCHASE VASHE CLEANSER TO USE AT HOME. MAY SHOWER, LEAVE WOUND DRESSING INTACT. COVER WOUND DRESSING WITH A WATERPROOF BARRIER. KEEP DRESSING DRY. NO BATHS PLEASE. PROCEDURE / ANESTHETIC 4% TOPICAL LIDOCAINE TO WOUND BED PRIOR TO PROCEDURE, IN CLINIC ONLY. DRESSING ORDERS APPLY DRESSING(S) AND SECURE WITH: - IODOFLEX TO ULCERS, COVER WITH BORDERED SILICONE FOAM. DRESSING CHANGE FREQUENCY CHANGE DRESSING 3 TIMES PER WEEK. CHANGE DRESSING IF IT BECOMES SOILED OR WET. WOUND #2 RIGHT, POSTERIOR LEG - LOWER ARCEHENOK [id number] 1950 HAND HYGIENE HAND HYGIENE - WASH HANDS BEFORE AND AFTER WOUND CARE. CALL THE WOUND CENTER AT [phone] IF YOU HAVE SIGNS OR SYMPTOMS OF INFECTION, FEVER CHILLS OR SHAKES, INCREASED DRAINAGE, INCREASED ODOR OR UNUSUAL REDNESS. AFTER WOUND CENTER HOURS PLEASE NOTIFY YOUR PCP OR GO TO THE EMERGENCY ROOM. CLEANSER CLEANSE WOUND WITH NORMAL SALINE - YOU MAY ALSO PURCHASE VASHE CLEANSER TO USE AT HOME. MAY SHOWER, LEAVE WOUND DRESSING INTACT. COVER WOUND DRESSING WITH A WATERPROOF BARRIER. KEEP DRESSING DRY. NO BATHS PLEASE. PROCEDURE / ANESTHETIC 4% TOPICAL LIDOCAINE TO WOUND BED PRIOR TO PROCEDURE, IN CLINIC ONLY. DRESSING ORDERS APPLY DRESSING(S) AND SECURE WITH: - IODOFLEX TO ULCERS, COVER WITH BORDERED SILICONE FOAM. DRESSING CHANGE FREQUENCY CHANGE DRESSING 3 TIMES PER WEEK. CHANGE DRESSING IF IT BECOMES SOILED OR WET. WOUND #4 LEFT FOOT - DORSAL HAND HYGIENE HAND HYGIENE - WASH HANDS BEFORE AND AFTER WOUND CARE. CALL THE WOUND CENTER AT [phone] IF YOU HAVE SIGNS OR SYMPTOMS OF INFECTION, FEVER CHILLS OR SHAKES, INCREASED DRAINAGE, INCREASED ODOR OR UNUSUAL REDNESS. AFTER WOUND CENTER HOURS PLEASE NOTIFY YOUR PCP OR GO TO THE EMERGENCY ROOM. CLEANSER CLEANSE WOUND WITH NORMAL SALINE - YOU MAY ALSO PURCHASE VASHE CLEANSER TO USE AT HOME. MAY SHOWER, LEAVE WOUND DRESSING INTACT. COVER WOUND DRESSING WITH A WATERPROOF BARRIER. KEEP DRESSING DRY. NO BATHS PLEASE. PROCEDURE / ANESTHETIC 4% TOPICAL LIDOCAINE TO WOUND BED PRIOR TO PROCEDURE, IN CLINIC ONLY. DRESSING ORDERS APPLY DRESSING(S) AND SECURE WITH: - IODOFLEX TO ULCERS, COVER WITH BORDERED SILICONE FOAM. DRESSING CHANGE FREQUENCY CHANGE DRESSING 3 TIMES PER WEEK. CHANGE DRESSING IF IT BECOMES SOILED OR WET. ADDITIONAL ORDERS: TOPICAL TREATMENTS OTHER ORDER: - NYSTATIN POWDER TO RASHY SKIN FOLDS (LEFT GROIN). OFF-LOADING / PRESSURE RELIEF WHEELCHAIR CUSHION. - EHOB CUSHION GIVEN IN CLINIC, USE ON ALL SEATING SURFACES, RECOMMEND PURCHASING ROHO CUSHION. INFORMATION GIVEN IN CLINIC TODAY. SEAT LIFTS OR SHIFT POSITION IN CHAIR EVERY 15 MINUTES. TURN EVERY 2 HOURS. AVOID POSITION DIRECTING PRESSURE TO WOUND SITE. LIMIT SIDE LYING TO 30 DEGREE TILT. LIMIT HOB ELEVATION TO 30 DEGREES IN BED. DIETARY FOLLOW A DIABETIC DIET. INCREASE THE PROTEIN IN YOUR DIET. - DIABETIC FRIENDLY PROTEIN SUPPLEMENT. HOME HEALTH HOME HEALTH CARE: IF YOU HAVE ANY QUESTIONS OR CONCERNS PLEASE CONTACT THE WOUND CENTER. - SIGNATURE HOME HEALTH: PLEASE SEE PATIENT FOR DRESSING CHANGES ON MONDAYS AND FRIDAYS. PT TO RETURN TO CLINIC ON WEDNESDAYS. FOLLOW-UP APPOINTMENTS RETURN APPOINTMENT 1 WEEK OTHER ORDERS: - PLEASE AGRICULTURAL ECONOMICS TEACHER AND START TAKING ANTIBIOTICS PRESCRIBED. PLEASE CALL TO SCHEDULE YOUR ARTERIAL ULTRASOUND: [phone]. SCRIBING ATTESTATION I ATTEST, THE NURSE, THAT I SCRIBED THESE ORDERS FOR THE WOUND CARE PROVIDER. PROVIDER REVIEW AND ATTESTATION: REVIEWED AND EVALUATED LABS. REVIEWED HOSPITAL RECORDS. DISCUSSED THE PLAN OF CARE @ BEDSIDE WITH - THE PATIENT I AGREE AND ATTEST TO THE ABOVE INFORMATION PROVIDED FROM OTHER LICENSED PROFESSIONALS. MEDICATIONS PRESCRIBED: HENOK ARCE [id number] 1950 DOXYCYCLINE MONOHYDRATE - ORAL 100 MG 1 TABLET TWICE DAILY FOR 1 WEEK STARTING 12/23/2024 PLAN OF CARE: 01. ENSURE/ESTABLISH OPTIMAL BLOOD FLOW : - COMPLETE LOWER EXTREMITY ASSESSMENT STATUS: COMPLETED DATE: 12/09/2024 - PERFORM NON-INVASIVE VASCULAR TESTING (I.E. DIANA) AND DOCUMENT FINDINGS. CONSIDER REPEATING WHEN WOUND HEALING <40% AFTER 30 DAYS OF WOUND CARE. - PT DI NOT TOLERATE DIANA. STATUS: COMPLETED DATE: 12/09/2024 - ORDER VASCULAR CONSULT FOR EVALUATION/TREATMENT AND/OR NON-INVASIVE VASCULAR TESTING. - ARTERIAL US ORDERED. WILL HAVE December. STATUS: CONTINUED DATE: 12/23/2024 02. ASSESS FOR/TREAT INFECTION : - EVALUATE FOR SIGNS AND SYMPTOMS OF INFECTION AND DOCUMENT FINDINGS. STATUS: CONTINUED DATE: 12/23/2024 03. DEBRIDE WEEKLY OR MORE OFTEN PRN : - EVALUATE PATIENT IN CENTER WEEKLY TO ASSESS WOUND BED AND MARGINS FOR NEED FOR DEBRIDEMENT. STATUS: CONTINUED DATE: 12/23/2024 - DEBRIDEMENT BY ANY METHOD TO REMOVE DEVITALIZED/NECROTIC TISSUE TO PROMOTE HEALING AND PREVENT FURTHER COMPLICATIONS. GOAL IS TO STIMULATE AND/OR MAINTAIN ACUTE PHASE OF WOUND HEALING BY REDUCING BACTERIAL BURDEN AND DEVITALIZED/NON-VIABLE TISSUE. STATUS: CONTINUED DATE: 12/23/2024 04. OPTIMIZE GLUCOSE CONTROL AND NUTRITION : - ORDER/REVIEW PERTINENT LABS TO EVALUATE RENAL FUNCTION, GLUCOSE CONTROL, AND NUTRITIONAL STATUS. STATUS: CONTINUED DATE: 12/23/2024 - COMPLETE A NUTRITION RISK ASSESSMENT. STATUS: COMPLETED DATE: 12/09/2024 05. OFFLOADING PLAN : - REVIEWED, NOT APPLICABLE 06. OPTIMIZE HOST FACTORS: - ASSESS AND REVIEW PATIENT HISTORY FOR WOUND ETIOLOGY, CO-MORBID CONDITIONS, MEDICATION REGIME, AND SMOKING HISTORY. STATUS: CONTINUED DATE: 12/23/2024 07. DRESSING SELECTION : - EVALUATE FOR DRESSING-RELATED FACTORS, SUCH AVAILABILITY, WEAR TIME, ADAPTABILITY AND USE TO BETTER OPTIMIZE WOUND HEALING AND PATIENT COMPLIANCE. STATUS: CONTINUED DATE: 12/23/2024 - EDUCATE THE PATIENT/FAMILY/CAREGIVER TO MONITOR DRESSING DAILY. CHANGE DRESSING ONLY NEEDED BUT NEVER LESS FREQUENTLY THAN WEEKLY SO THAT WOUND BED CAN BE REASSESSED. STATUS: CONTINUED DATE: 12/23/2024 08. ADVANCED MODALITIES : - RE-EVALUATE PLAN OF CARE IF NO EVIDENCE OF HEALING (40% IN 4 WEEKS). STATUS: CONTINUED DATE: 12/23/2024 09. FALL PREVENTION : - COMPLETE FALL ASSESSMENT. STATUS: COMPLETED DATE: 12/09/2024 10. PAIN MANAGEMENT : - INSTRUCT THE PATIENT TO CALL ?TIME-OUT? IF PAIN IS TOO INTENSE DURING PROCEDURE. STATUS: CONTINUED DATE: 12/23/2024 11. MEASURABLE GOALS FOR WOUND HEALING AND/OR HYPERBARIC OXYGEN THERAPY : - WOUND CLOSURE HENOK ARCE [id number] 1950 STATUS: CONTINUED DATE: 12/23/2024 12. DURATION/FREQUENCY OF WOUND CARE VISITS : - 1X WEEKLY FOR 30 DAYS STATUS: CONTINUED DATE: 12/23/2024 ELECTRONIC SIGNATURE(S) SIGNED BY: DATE: AFSHAN GAO MD 12/24/2024 16:19:24 (PT) ENTERED BY: AFSHAN GAO MD ON 12/23/2024 12:24:14 (PT) HENOK ARCE [id number] 1950
== END ==
PROVIDERS: PCP Family Medicine; Referring Provider Family Medicine; Visit Provider Surgery
DX: E11.622 Type 2 diabetes mellitus with other skin ulcer (principal); L97.812 Non-pressure chronic ulcer of other part of right lower leg with fat layer exposed; M79.604 Pain in right leg; L53.8 Other specified erythematous conditions; L98.8 Other specified disorders of the skin and subcutaneous tissue; R60.0 Localized edema; R23.4 Changes in skin texture; L97.522 Non-pressure chronic ulcer of other part of left foot with fat layer exposed
CPT/HCPCS: 99213

== ENCOUNTER → 2024-12-30 13:50 | Outpatient (CLI) | payer OTHER, SELFPAY ==
[2024-07-23 23:47] VITALS: BMI 39.6
--- NOTE | 2024-12-30 13:52 | DI.US.S_ITS ---
PROCEDURE: US ARTERIAL DUPLEX LE BI INDICATIONS: Non-healing ulcers of bilateral lower extremities. TECHNIQUE: Color and pulse Doppler interrogation was performed of both lower extremity arterial systems, with image documentation. COMPARISON: None. FINDINGS: Right lower extremity: Common femoral artery: 77 cm/sec, with triphasic flow. Deep femoral artery: 61 cm/sec, with monophasic flow. Proximal superficial femoral artery: 80 cm/sec, with triphasic flow. Mid superficial femoral artery: 85 cm/sec, with triphasic flow. Distal superficial femoral artery: 65 cm/sec, with triphasic flow. Popliteal artery: 59 cm/sec, with triphasic flow. Posterior tibial artery: Not seen Anterior tibial artery/dorsalis pedis: Not seen Daily-scale imaging description: From the common femoral through the popliteal the vessels appear patent with normal triphasic waveforms. However, the runoff vessels are not identified, presumed occluded. Left lower extremity: Common femoral artery: 74 cm/sec, with biphasic flow. Deep femoral artery: 68 cm/sec, with triphasic flow. Proximal superficial femoral artery: 69 cm/sec, with triphasic flow. Mid superficial femoral artery: 98 cm/sec, with triphasic flow. Distal superficial femoral artery: 86 cm/sec, with triphasic flow. Popliteal artery: 54 cm/sec, with biphasic flow. Posterior tibial artery: Not seen, presumed occluded. Anterior tibial artery/dorsalis pedis: 54 cm/sec, with monophasic high resistance flow. Daily-scale imaging description: Patency from the common femoral through the popliteal with normal waveforms. Presumed occluded posterior tibial and presumed severe distal anterior tibial distribution disease. IMPRESSION: 1. On the right, there is patency with normal waveforms from the common femoral through the popliteal. The posterior tibial and anterior tibial are presumed occluded. 2. On the left, the common femoral through the popliteal are patent with normal waveforms. The posterior tibial is likely occluded, in the anterior tibial likely has significant distal disease. Dictated by: Santi Kaplan M.D. on 12/30/2024 at 20:30 Approved by: Santi Kaplan M.D. on 12/30/2024 at 20:34
== END ==
LOC: US 13:51
PROVIDERS: PCP Family Medicine; Referring Provider Surgery; Visit Provider Surgery
DX: L97.812 Non-pressure chronic ulcer of other part of right lower leg with fat layer exposed (principal); L97.212 Non-pressure chronic ulcer of right calf with fat layer exposed; S91.302A Unspecified open wound, left foot, initial encounter
CPT/HCPCS: 93925

== ENCOUNTER → 2024-12-30 13:52 | Outpatient (CLI) | payer OTHER, SELFPAY ==
[2024-07-23 23:47] VITALS: BMI 39.6
--- NOTE | 2024-12-30 13:53 | DI.US.S_ITS ---
PROCEDURE: US THYROID INDICATIONS: thyroid nodule TECHNIQUE: Real-time scanning was performed of the thyroid gland, with image documentation. COMPARISON: [facility], US, US THYROID, 11/23/2020, 10:28. FINDINGS: Thyroid: Right lobe measures 3.9 x 2.4 x 2.5 cm. Left lobe measures 3.2 x 2.3 x 1.0 cm. Isthmus is 0.5 cm thick. Echotexture is heterogeneous. Nodule number: 1 Location: Left lower pole Size: 1.0 x 0.8 x 0.7 cm. Composition: Cystic Echogenicity: Anechoic Shape: Smooth Margins: None Echogenic foci: Non Total points: 0 ACR TI-RADS category: Benign Nodule number: 2 Location: Right middle pole Size: 3.2 x 2.0 x 2.2 cm, previously 3.0 x 2.1 x 1.9 cm. Composition: Solid Echogenicity: Hypoechoic Shape: wider than tall. Margins: Irregular Echogenic foci: Punctate Total points: 9 ACR TI-RADS category: 5 IMPRESSION: In the right middle pole there is a solid nodule which is a category 5 lesion and has minimally increased in size since the previous study. If this nodule does not carry a benign diagnosis from prior biopsy, would recommend ultrasound-guided FNA. Comment: Please see definitions and recommendations listed below. ACR TI-RADS definitions and recommendations: TI-RADS 1 (benign): 0 points. FNA not needed. TI-RADS 2 (not suspicious): 2 points. FNA not needed. TI-RADS 3: 3 points. * FNA if 2.5 cm or larger, follow up if 1.5 cm or larger (at 1, 3, and 5 years). TI-RADS 4: 4-6 points. * FNA if 1.5 cm or larger, follow up if 1 cm or larger (at 1, 2, 3, and 5 years). TI-RADS 5: 7 points or more. * FNA if 1 cm or larger, follow up if 0.5 cm or larger (every year for 5 years). Dictated by: Santi Kaplan M.D. on 12/30/2024 at 19:59 Approved by: Santi Kaplan M.D. on 12/30/2024 at 20:30
== END ==
LOC: US 13:53
PROVIDERS: PCP Family Medicine; Referring Provider Family Medicine; Visit Provider Family Medicine
DX: E04.1 Nontoxic single thyroid nodule (principal); E11.9 Type 2 diabetes mellitus without complications; I48.91 Unspecified atrial fibrillation; I10 Essential (primary) hypertension; I25.10 Atherosclerotic heart disease of native coronary artery without angina pectoris; F09 Unspecified mental disorder due to known physiological condition; W19.XXXA Unspecified fall, initial encounter; L97.812 Non-pressure chronic ulcer of other part of right lower leg with fat layer exposed; L97.212 Non-pressure chronic ulcer of right calf with fat layer exposed; S91.302A Unspecified open wound, left foot, initial encounter
CPT/HCPCS: 76536; 93925

== ENCOUNTER → 2024-12-30 15:19 | Outpatient (CLI) | payer OTHER, SELFPAY ==
[2024-07-23 23:47] VITALS: BMI 39.6
== END ==
PROVIDERS: PCP Family Medicine; Referring Provider Family Medicine; Visit Provider Surgery
DX: E11.622 Type 2 diabetes mellitus with other skin ulcer (principal); E11.621 Type 2 diabetes mellitus with foot ulcer; L97.812 Non-pressure chronic ulcer of other part of right lower leg with fat layer exposed; L97.522 Non-pressure chronic ulcer of other part of left foot with fat layer exposed; L98.8 Other specified disorders of the skin and subcutaneous tissue; L53.8 Other specified erythematous conditions; R23.4 Changes in skin texture; R60.0 Localized edema
CPT/HCPCS: 99213

== ENCOUNTER 2024-12-31 14:19 | Emergency (ER) | payer OTHER, SELFPAY ==
[2024-07-23 23:47] VITALS: BMI 39.6
[2024-12-31] VITALS (9 sets, daily range): BP systolic 124–174; BP diastolic 58–95; PULSE 71–79; RESP 5–18; TEMP 36.6; O2SAT 97–100; BMI 39.6
--- NOTE | 2024-12-31 16:49 | ED.WOUNDLAC ---
HPI - Wound/Laceration General Chief Complaint: Wound/Laceration Stated Complaint: Pain/swelling right leg,known ulcers Time Seen by Provider: 12/31/24 16:18 Source: patient Mode of arrival: EMS History of Present Illness HPI narrative: Patient here with son. Complains of ongoing skin wound with pain on the right medial distal leg. Patient sees Dr. Barrett with wound care clinic here. Patient had Doppler of the leg yesterday. It did show possible occlusion of 2 vessels anterior and posterior tibial arteries. Foot is warm soft pink. Brisk cap refills. There are 2 lesions on the leg. Each about 3 cm diameter. There is eschar at the center of the wounds. No fat or bony projection or exposure. No muscle exposure. No drainage. Wounds are dry. Patient was seen yesterday at the [facility] with dressing applied. Patient is on Keflex, today's the last dose. No fever chills. Related Data Home Medications Medication Instructions Recorded Confirmed atorvastatin 80 mg tablet (Lipitor) 80 mg PO QPM 06/02/23 11/25/24 nystatin 100,000 unit/gram topical 1 applic topical TID rash 01/16/24 11/25/24 cream Previous Rx's Medication Instructions Recorded Parking Permit... #1 ea 09/08/20 pen needle, diabetic 29 gauge x #100 ea 03/09/2210/16 (Comfort EZ Pen [place]) clopidogrel 75 mg tablet 75 mg PO QAM #90 tabs 11/07/23 diltiazem HCl 120 mg 240 mg (2 x 120 mg) PO BID #180 11/07/23 capsule,extended release 12 hr caps metformin 500 mg tablet 1,000 mg (2 x 500 mg) PO BID #360 11/07/23 tabs metoprolol succinate 50 mg 50 mg PO DAILY #90 tabs 11/07/23 tablet,extended release 24 hr nitroglycerin 0.4 mg sublingual 0.4 mg sublingual Q5-15M PRN chest 11/07/23 tablet pain #90 tabs insulin glargine 100 unit/mL (3 40 unit (0.4 mL) SUBCUT QAM #15 mL 02/11/24 mL) subcutaneous pen (Lantus Solostar U-100 Insulin) vancomycin 125 mg capsule 125 mg PO Q6H #40 caps 07/25/24 blood sugar diagnostic (True #100 strips 08/19/24 Metrix Glucose Test Strip) apixaban 5 mg tablet (Eliquis) 5 mg PO BID #180 tabs 09/05/24 cephalexin 500 mg capsule 500 mg PO TID #15 caps 10/26/24 cefdinir 300 mg capsule 300 mg PO Q12H #14 caps 10/30/24 amiodarone 200 mg tablet 200 mg PO BID #180 tabs 11/26/24 semaglutide 1 mg/dose (4 mg/3 mL) 1 mg (0.75 mL) SUBCUT QWEEK #3 mL 12/08/24 subcutaneous pen injector (Ozempic) doxycycline monohydrate 100 mg 100 mg PO BID #20 caps 12/31/24 capsule Allergies Allergy/AdvReac Type Severity Reaction Status Date / Time Sulfa (Sulfonamide Allergy Mild RASH Verified 12/31/24 14:26 Antibiotics) Review of Systems Review of Systems Narrative: GENERAL: Negative chills, fatigue, malaise, fever, sweats. HEENT: Negative sinus pain, ear pain, sore throat RESPIRATORY: Negative dyspnea, cough CARDIOVASCULAR: Negative chest pain, palpitations GASTROINTESTINAL: Negative vomiting, nausea, abdominal pain : Negative dysuria, frequency, hematuria MUSCULOSKELETAL: Negative muscle or bony pain SKIN: Negative rash, positive skin lesions NEUROLOGIC: Negative weakness, numbness ROS Unobtainable: All systems reviewed & are unremarkable except as noted in HPI and below Patient History Medical History Mild cognitive disorder Acute kidney injury Appendicitis with perforation Vertigo Sedentary lifestyle Stage II pressure ulcer of sacral region (~02/2023) Hyperlipidemia Thyroid nodule Incontinence Breast screening Abnormal mammogram of left breast NSTEMI (non-ST elevated myocardial infarction) (09/2018) Recent heart attack Coronary artery disease Osteopenia (05/20/14) Knee osteoarthritis Hypertension (~2011) Diabetes mellitus (~2011) Rheumatoid arthritis Colon polyps (08/31/14) Surgical History History of bilateral knee replacement (2009) History of colonoscopy with polypectomy (08/31/14) History of left cataract surgery (03/23/15) History of right cataract surgery (04/06/15) Anesthesia History of knee replacement History of knee replacement Status post delivery (12/21/78) Family History Brother Drowning Father Heart disease Mother Diabetes mellitus Sister Bone cancer Sister Bone cancer Social History marital status: household members: none Smoking Status: Never smoker alcohol intake: current substance use type: does not use Smoking Status: Never smoker alcohol intake frequency: holidays/special occasions only Alcohol type: hard liquor Exam Narrative Exam Narrative: GENERAL: in no distress, not toxic not dyspneic HEAD: Normocephalic. EYES: Pupils equal round ENT: Mucous membranes moist. EXTREMITIES: No gross deformities. Examination right lower extremity knee to toe exposed.Foot is warm soft pink. Brisk cap refills. There are 2 lesions on the leg. Each about 3 cm diameter. There is eschar at the center of the wounds. No fat or bony projection or exposure. No muscle exposure. No drainage. Wounds are dry NEURO: AOx4. Clear speech SKIN: Warm and dry PSYCH: Not anxious, is cooperative Initial Vital Signs Initial Vital Signs: Vital Signs Temperature 97.8 F 12/31/24 14:20 Pulse Rate 79 12/31/24 14:20 Respiratory Rate 5 L 12/31/24 14:20 Blood Pressure 143/65 H 12/31/24 14:20 Pulse Oximetry 99 12/31/24 14:20 Oxygen Delivery Method Room Air 12/31/24 14:20 Course Orders Ordered: Discontinued Medications Doxycycline Hyclate 100 mg/ (Sodium Chloride) 100 mls @ 100 mls/hr IV NOW ONE Stop: 12/31/24 17:38 Last Infusion: 12/31/24 18:55 Dose: Infused Documented By: Admin: 12/31/24 17:48 Dose: 100 mls/hr Documented By: VERN Vital Signs Vital signs: Vital Signs - 8 hr 12/31/24 14:20 12/31/24 14:25 12/31/24 14:25 Temperature 97.8 F Pulse Rate 79 78 Respiratory Rate 5 L Blood Pressure 143/65 H 143/65 H Pulse Oximetry 99 99 Oxygen Delivery Method Room Air 12/31/24 14:30 12/31/24 14:30 12/31/24 15:00 Temperature Pulse Rate 74 Respiratory Rate Blood Pressure 141/63 H 124/58 L Pulse Oximetry 99 Oxygen Delivery Method 12/31/24 15:00 12/31/24 15:31 12/31/24 15:31 Temperature Pulse Rate 73 71 Respiratory Rate 18 Blood Pressure 174/72 H Pulse Oximetry 99 99 Oxygen Delivery Method Room Air 12/31/24 15:54 12/31/24 15:54 12/31/24 16:00 Temperature Pulse Rate 72 72 Respiratory Rate Blood Pressure 133/95 H Pulse Oximetry 100 99 Oxygen Delivery Method MDM - Wound/Laceration Lab Data 12/31/24 14:10 12/31/24 14:10 Labs: Lab Results 12/31/24 Range/Units 14:10 WBC 5.9 (4.5-11.0) X10^3/uL RBC 4.11 (4.0-5.2) X10^6/uL Hgb 10.6 L (12.0-16.0) g/dL Hct 32.9 L (36-46) % MCV 80.2 (80-100) fL MCH 25.9 L (26-34) PG MCHC 32.4 (30-36) % RDW 15.8 H (11.6-14.8) % Plt Count 294 (150-400) X10^3/uL Neut % (Auto) 73.1 (50-75) % Lymph % (Auto) 16.9 L (25-40) % Richardson % (Auto) 7.0 (3-14) % Eos % (Auto) 1.9 L (2-4) % Baso % (Auto) 1.1 (0-2) % Neut # (Auto) 4300 (6494-3902) /uL Lymph # (Auto) 1000 L (8664-7881) /uL Richardson # (Auto) 400 (0-900) /uL Eos # (Auto) 100 (0-450) /uL Baso # (Auto) 100 (0-100) /uL Sodium 140 (137-145) mmol/L Potassium 4.1 (3.4-5.1) mmol/L Chloride 103 (98-107) mmol/L Carbon Dioxide 29 (22-32) mmol/L BUN 26 H (7-17) mg/dL Creatinine 1.29 H (0.52-1.04) mg/dL Estimated GFR 44 L (>60) mL/min BUN/Creatinine Ratio 20.2 (6-22) Glucose 159 H (80-110) mg/dL Lactate 1.4 (0.7-2.1) mmol/L Calcium 9.3 (8.4-10.2) mg/dL Total Bilirubin 0.5 (0.2-1.3) mg/dL AST 23 (14-36) IU/L ALT 14 (<35) IU/L Alkaline Phosphatase 64 (38-126) U/L Total Protein 7.5 (6.3-8.2) g/dL Albumin 3.9 (3.5-5.0) g/dL Globulin 3.6 (1.7-4.1) g/dL Albumin/Globulin Ratio 1.1 (1.0-2.8) Procalcitonin 0.055 (<0.5) ng/mL Imaging Data Extremity x-ray #1: Radiologist's Impression: [address] [address] XRay Report Signed Patient: Anuja Parker MR#: [id number] : 1950 Acct:[id number] Age/Sex: 74 / F Date of Service: 12/31/24 Loc: ED Accession Number: [id number] Procedure: XR tibia fibula RT 2V Ordering Provider: Manuel Lakhani MD PROCEDURE: XR TIBIA FUBULA RT 2V INDICATIONS: Pain/injury TECHNIQUE: 2 views of the tibia and fibula were acquired. COMPARISON: None. FINDINGS: Bones: No fractures or dislocations. No suspicious bony lesions. Medial hemiarthroplasty components in the knee. Soft tissues: No suspicious soft tissue calcifications or masses. Heavy peripheral vascular calcification. IMPRESSION: No acute fractures. Dictated by: Karime Santizo M.D. on 12/31/2024 at 17:46 Approved by: Karime Santizo M.D. on 12/31/2024 at 17:46 [facility] Narrative Medical decision making narrative: Patient here with son. Complains of ongoing skin wound with pain on the right medial distal leg. Patient sees Dr. Barrett with wound care clinic here. Patient had Doppler of the leg yesterday. It did show possible occlusion of 2 vessels anterior and posterior tibial arteries. Foot is warm soft pink. Brisk cap refills. There are 2 lesions on the leg. Each about 3 cm diameter. There is eschar at the center of the wounds. No fat or bony projection or exposure. No muscle exposure. No drainage. Wounds are dry. Patient was seen yesterday at the Wound Care Clinic with dressing applied. Patient is on Keflex, today's the last dose. No fever chills. After history and exam, CBC CMP procalcitonin lactic acid x-ray tib-fib doxycycline [facility] Medical records reviewed: Doppler ultrasound of the right leg and left leg yesterday. Differential considered: Includes but not limited to cellulitis necrotizing fasciitis osteomyelitis chronic skin ulcer Lab Test results independently reviewed as above. Pertinent findings: WBC 5.9 hemoglobin 10.6 BUN 26 creatinine 1.29 GFR 44 lactic acid 1.4 procalcitonin 0.055 Imaging studies independently reviewed: X-ray right tib-fib no acute finding Consultations: None indicated at this time Treatments: Doxycycline Re-evaluations: 6:00 p.m.. Updated patient and son results. I spoke to the son by phone. At this time results are reassuring. I will start new antibiotic. Return precautions reviewed. They will call the wound care clinic provider tomorrow for update on results of the Doppler from yesterday. Discussion: Appropriate for discharge home exam is reassuring. Laboratory studies are reassuring. I will start doxycycline here. Prescription provided. Pain is controlled. Return precautions reviewed. I spoke with patient and son. Patient does have Wound Care Clinic to follow up with. They will call tomorrow morning for results of leg Doppler from yesterday to go over with their wound care provider. Diagnosis: Chronic wound infection Discharge Plan Departure Patient Disposition: Home Clinical Impression: Chronic skin ulcer Qualifiers: Non-pressure ulcer stage: unspecified non-pressure ulcer stage Qualified Code(s): L98.499 - Non-pressure chronic ulcer of skin of other sites with unspecified severity Instructions: Skin Wound Activity Restrictions/Additional Instructions: Please continue wound care with your wound care clinic. New prescription antibiotic has been started for you and sent to the pharmacy to continue tomorrow. First dose was given here by IV. Your laboratory results and x-ray are reassuring today. Please do review the Doppler ultrasound you had done yesterday with your wound care provider. Return if worse if any questions or concerns. Please discontinue antibiotic that was given by the wound care clinic this past week. Return if worse if any questions or concerns Prescriptions: New doxycycline monohydrate 100 mg capsule 100 mg PO BID Qty: 20 0RF No Action (DME) pen needle, diabetic [Comfort EZ Pen [place]] 29 gauge x 1/2 needle See Rx Instructions .ROUTE .MEDSUPPLY Qty: 100 3RF Rx Instructions: use to check blood glucose 3x per day insulin glargine [Lantus Solostar U-100 Insulin] 100 unit/mL (3 mL) insulin pen 40 unit SUBCUT QAM Qty: 15 3RF (DME) True Metrix Glucose Test Strip Strip See Rx Instructions .ROUTE .COMPLEX Qty: 100 3RF Dose Instruction: USE TO TEST BLOOD SUGAR DAILY Rx Instructions: USE TO TEST BLOOD SUGAR DAILY Eliquis 5 mg tablet 5 mg PO BID Qty: 180 2RF amiodarone 200 mg tablet 200 mg PO BID Qty: 180 1RF Ozempic 1 mg/dose (4 mg/3 mL) pen injector 1 mg SUBCUT QWEEK Qty: 3 1RF (DME) Parking Permit... See Rx Instructions .Route .MEDSUPPLY Qty: 1 0RF Rx Instructions: Patient meets criteria for permanent parking placard. metoprolol succinate 50 mg tablet extended release 24 hr 50 mg PO DAILY Qty: 90 3RF diltiazem HCl 120 mg capsule,extended release 12 hr 240 mg PO BID Qty: 180 3RF clopidogrel 75 mg tablet 75 mg PO QAM Qty: 90 3RF metformin 500 mg tablet 1,000 mg PO BID Qty: 360 3RF Rx Instructions: TAKE TWO TABLETS BY MOUTH TWICE DAILY nitroglycerin 0.4 mg tablet, sublingual 0.4 mg SL Q5-15M PRN (Reason: chest pain) Qty: 90 11RF Patient Comments: patient has prescription but has not taken yet Rx Instructions: until response; do not exceed 3 doses per episode atorvastatin [Lipitor] 80 mg tablet 80 mg PO QPM nystatin 100,000 unit/gram cream 1 applic topical TID vancomycin 125 mg Capsule 125 mg PO Q6H Qty: 40 0RF cephalexin 500 mg capsule 500 mg PO TID Qty: 15 0RF cefdinir 300 mg capsule 300 mg PO Q12H Qty: 14 0RF Referrals: Chino Ruggiero MD [Primary Care Provider] - Stand Alone Forms: Patient Portal/API/Survey
--- NOTE | 2024-12-31 16:54 | DI.RAD.S_ITS ---
PROCEDURE: XR TIBIA FUBULA RT 2V INDICATIONS: Pain/injury TECHNIQUE: 2 views of the tibia and fibula were acquired. COMPARISON: None. FINDINGS: Bones: No fractures or dislocations. No suspicious bony lesions. Medial hemiarthroplasty components in the knee. Soft tissues: No suspicious soft tissue calcifications or masses. Heavy peripheral vascular calcification. IMPRESSION: No acute fractures. Dictated by: Karime Santizo M.D. on 12/31/2024 at 17:46 Approved by: Karime Santizo M.D. on 12/31/2024 at 17:46
[2024-12-31 16:58] LABS: Add Manual Diff / Slide Review NO; Basophils Absolute Auto 100 /uL (0-100); Basophils Percent Auto 1.1 % (0-2); Eosinophils Absolute Auto 100 /uL (0-450); Eosinophils Percent Auto 1.9 % (2-4); Hematocrit 32.9 % (36-46); Hemoglobin 10.6 g/dL (12.0-16.0); Lymphocytes Absolute Auto 1000 /uL (1100-4500); Lymphocytes Percent Auto 16.9 % (25-40); Mean Corpuscular HGB Conc 32.4 % (30-36); Mean Corpuscular Hemoglobin 25.9 PG (26-34); Mean Corpuscular Volume 80.2 fL (80-100); Monocytes Absolute Auto 400 /uL (0-900); Neutrophils Absolute Auto 4300 /uL (1500-7000); Neutrophils Percent Auto 73.1 % (50-75); Platelet Count 294 X10^3/uL (150-400); Red Blood Cell Count 4.11 X10^6/uL (4.0-5.2); Red Cell Distribution Width 15.8 % (11.6-14.8); White Blood Cell Count 5.9 X10^3/uL (4.5-11.0)
[2024-12-31 17:00] LABS: Lactate (Lactic Acid) 1.4 mmol/L (0.7-2.1)
[2024-12-31 17:01] LABS: Alanine Aminotransferase 14 IU/L (<35); Albumin 3.9 g/dL (3.5-5.0); Albumin Globulin Ratio 1.1 (1.0-2.8); Alkaline Phosphatase 64 U/L (38-126); Aspartate Aminotransferase 23 IU/L (14-36); BUN Creatinine Ratio 20.2 (6-22); Bilirubin Total 0.5 mg/dL (0.2-1.3); Blood Urea Nitrogen 26 mg/dL (7-17); Calcium 9.3 mg/dL (8.4-10.2); Carbon Dioxide 29 mmol/L (22-32); Chloride 103 mmol/L (98-107); Estimated Glomerular Filt Rate 44 mL/min (>60); Globulin 3.6 g/dL (1.7-4.1); Glucose 159 mg/dL (80-110); HEMOLYSIS < 15 (0-50); Potassium 4.1 mmol/L (3.4-5.1); Sodium 140 mmol/L (137-145); Total Protein 7.5 g/dL (6.3-8.2)
[2024-12-31 17:18] LABS: Procalcitonin 0.055 ng/mL (<0.5)
[2024-12-31] MEDS: DOXYCYCLINE 100 MG in SODIUM CHLORIDE 0.9% 100 ML IV (17:48)
== END 2024-12-31 19:24 | disposition home or self-care (01) ==
PROVIDERS: Emergency Provider Emergency Medicine; PCP Family Medicine
DX: L98.499 Non-pressure chronic ulcer of skin of other sites with unspecified severity (principal)
CPT/HCPCS: 73590; 80053; 83605; 84145; 85025; 96365; 99283; 99284

== ENCOUNTER → 2025-01-06 15:59 | Outpatient (CLI) | payer OTHER, SELFPAY ==
[2024-07-23 23:47] VITALS: BMI 39.6
--- NOTE | 2025-01-06 | OV.WND_ITS ---
PROGRESS NOTE DETAILS PATIENT NAME: HENOK ARCE PATIENT NUMBER: [id number] CLINICIAN: BELÉN CRUZ PATIENT DATE OF : 1950 PHYSICIAN / GROUND WOOD SUPERVISOR: AFSHAN GAO PATIENT SUBJECTIVE CHIEF COMPLAINT THIS INFORMATION WAS OBTAINED FROM THE PATIENT. HURTS SO BAD ON THE BACK OF MY LEG ALLERGIES SULFA (SULFONAMIDE ANTIBIOTICS) HPI THIS INFORMATION WAS OBTAINED FROM THE PATIENT. THE FOLLOWING HPI ELEMENTS WERE DOCUMENTED FOR THE PATIENT'S WOUND: LOCATION: RLE, L FOOT DURATION: 10/15/24 CONTEXT: DIABETIC/ARTERIAL ASSOCIATED SIGNS AND SYMPTOMS: PAIN THE PATIENT IS A 74-YEAR-OLD FEMALE WITH DIABETES, CHF, AND CAD WHO RETURNS TODAY FOR FOLLOW UP OF ULCERS OF THE RIGHT LOWER EXTREMITY. THE PATIENT IS RECEIVING DRESSING CHANGES WITH BETADINE AND HAS COMPLETED A 1 WEEK COURSE OF DOXYCYCLINE. THE PATIENT REPORTS THAT THE ULCER ON THE RIGHT LOWER EXTREMITY IS STILL VERY PAINFUL HOWEVER SHE HAS NOT NOTED ANY REDNESS, SWELLING, OR DRAINAGE NOR HAS SHE HAD ANY FEVER OR CHILLS. THE PATIENT HAS HAD FREQUENT FALLS BUT IS NOT SURE EXACTLY HOW THE ULCERS DEVELOPED. SHE HAS NEVER HAD ANY SIMILAR PROBLEMS IN THE PAST. THE PATIENT REPORTS A GOOD APPETITE AND DENIES HAVING ANY OTHER RECENT CHANGES IN HER OVERALL HEALTH. THE PATIENT AMBULATES WITH THE USE OF A WALKER. SHE DENIES THE USE OF CIGARETTES. THE PATIENT IS ON ELIQUIS. THE ULCER OF THE RIGHT LOWER EXTREMITY HAS A NECROTIC ESCHAR AND MEASURES ABOUT THE SAME, NO SIGN OF INFECTION. THE ULCER ON THE DORSUM OF THE LEFT FOOT IS HEALED. LABS 12/30/24: ARTERIAL DOPPLER :ON THE RIGHT, THERE IS PATENCY WITH NORMAL WAVEFORMS FROM THE COMMON FEMORAL THROUGH THE POPLITEAL. THE POSTERIOR TIBIAL AND ANTERIOR TIBIAL ARE PRESUMED OCCLUDED.ON THE LEFT, THE COMMON FEMORAL THROUGH THE POPLITEAL ARE PATENT WITH NORMAL WAVEFORMS. THE POSTERIOR TIBIAL IS LIKELY OCCLUDED, IN THE ANTERIOR TIBIAL LIKELY HAS SIGNIFICANT DISTAL DISEASE. 11/25/14: X-RAY RIGHT ANKLE: NO ACUTE FRACTURE. NO OSSEOUS LESION. 11/25/24: ELECTROLYTES UNREMARKABLE, GFR 45, HEMOGLOBIN A1C 6.6, LFTS NORMAL 11/10/24: WBC 8.9, HEMOGLOBIN 11.2, HCT 34.1, ELECTROLYTES UNREMARKABLE, GFR 46, LFTS NORMAL FAMILY HISTORY THIS INFORMATION WAS OBTAINED FROM THE CHART, PATIENT. CANCER- [place] HENOK ARCE [id number] 1950 DIABETES- MOTHER HEART DISEASE- MOTHER, FATHER, PATERNAL GRANDPARENTS LUNG DISEASE- PATERNAL GRANDPARENTS SOCIAL HISTORY THIS INFORMATION WAS OBTAINED FROM THE CHART, PATIENT. NEVER SMOKER ALCOHOL USE: OCCASIONAL CAFFEINE USE: 3 DRINKS PER DAY CHILDREN LIVES IN: PRIVATE HOME WITH SON MARITAL STATUS: RETIRED MEDICAL HISTORY THIS INFORMATION WAS OBTAINED FROM THE CHART, PATIENT. PATIENT HAS A MEDICAL HISTORY OF: CORONARY ARTERY DISEASE (CAD) TYPE II DIABETES HYPERTENSION INCONTINENCE KNEE OSTEOARTHRITIS NSTEMI RHEUMATOID ARTHRITIS THYROID NODULE MILD COGNITIVE DISORDER ACUTE KIDNEY INJURY APPENDICITIS WITH PERFORATION VERTIGO HYPERLIPIDEMIA THYROID NODULE INCONTINENCE BREAST SCREENING ADDITIONAL INFORMATION DOES PATIENT HAVE A HISTORY OF CANCER? YES? COMPLETE ALL QUESTIONS.: NO SURGICAL HISTORY THIS INFORMATION WAS OBTAINED FROM THE CHART, PATIENT. PATIENT HAS A SURGICAL HISTORY OF: BILATERAL TKA- CATARACT REMOVAL- DELIVERY- HISTORY OF BILATERAL KNEE REPLACEMENT- HISTORY OF COLONOSCOPY WITH POLYPECTOMY- HISTORY OF RIGHT CATARACT SURGERY- HENOK ARCE [id number] 1950 REVIEW OF SYSTEMS (ROS) THIS INFORMATION WAS OBTAINED FROM THE PATIENT. COMPLAINTS AND SYMPTOMS PATIENT COM PLAINS OF: CARDIOVASCULAR (CENTRAL): CHEST PAIN, DYSPNEA ON EXERTION CO-MORBID CONDITIONS: CORONARY ARTERY DISEASE, DIABETES PRIOR WOUND HISTORY: PAIN RESPIRATORY: SHORTNESS OF BREATH PATIENT DENIES COM PLAINTS OR SY M PTOM S RELATED TO: CONSTITUTIONAL SYMPTOMS (GENERAL HEALTH): CHILLS, FEVER, LOSS OF APPETITE, MARKED WEIGHT CHANGE PRIOR WOUND HISTORY: BLEEDING, DRAINAGE, ERYTHEMA, MALODOR RESPIRATORY: COUGH OBJECTIVE VITALS HEIGHT/LENGTH: 62 IN (157.48 CM), WEIGHT: 191.9 LBS (87.23 KGS), BMI: 35.1, TEMPERATURE: 97.8 ?F (36.56 ?C), PULSE: 70 BPM, RESPIRATORY RATE: 18 BREATHS/MIN, BLOOD PRESSURE: 144/107 MMHG, PULSE OXIMETRY: 99 %. PHYSICAL EXAM CONSTITUTIONAL: VITAL SIGNS REVIEWED AND NOTED. WELL DEVELOPED, WELL NOURISHED, AND IN NO ACUTE DISTRESS. ALERT AND ORIENTED X3. RESPIRATORY: EVEN RESPIRATIONS WITHOUT USE OF ACCESSORY MUSCLES. NO INTERCOASTAL RETRACTIONS NOTED. EVEN AND NON LABORED RESPIRATION. INTEGUMENTARY (HAIR, SKIN): NO ERYTHEMA. PERIWOUND TENDERNESS, NO SWELLING. SEE WOUND ASSESSMENT. SKIN WARM AND DRY. NO RASHES. NEUROLOGICAL: SENSATION: SYMMETRIC FUNCTION BY INFORMAL OBSERVATION. PSYCHIATRIC: ORIENTATION TO TIME, PLACE AND PERSON: NORMAL AFFECT WITH NORMAL THOUGHT PATTERN. ADDITIONAL INFORMATION THE PATIENT'S POTENTIAL TO HEAL IS: FAIR. LOWER EXTREMITY ASSESSMENT EDEMA ASSESSMENT: LEFT EXTREMITY: EDEMA IS PRESENT COMPRESSION DEVICE IN USE: NO CALF MEASUREMENT 32 CM FROM HEEL WITH LEFT MEASUREMENT OF 37 CM ANKLE MEASUREMENT 5 CM FROM ANKLE WITH LEFT MEASUREMENT OF 25.5 CM FOOT MEASUREMENT 13 CM FROM HEEL WITH LEFT MEASUREMENT OF 25 CM RIGHT EXTREMITY: EDEMA IS PRESENT COMPRESSION DEVICE IN USE: NO CALF MEASUREMENT 32 CM FROM HEEL WITH RIGHT MEASUREMENT OF 40 CM ANKLE MEASUREMENT 5 CM FROM ANKLE WITH RIGHT MEASUREMENT OF 26.5 CM FOOT MEASUREMENT 13 CM FROM HEEL WITH RIGHT MEASUREMENT OF 25 CM VASCULAR ASSESSMENT LEFT EXTREMITY COLORS, HAIR GROWTH, AND CONDITIONS: HENOK ARCE [id number] 1950 EXTREMITY COLOR: PIGMENTED HAIR GROWTH ON EXTREMITY: YES TEMPERATURE OF EXTREMITY: WARM CAPILARY REFILL: > 3 SECONDS ERYTHEMA: YES DEPENDENT RUBOR: NO HYPERPIGMENTATION: YES LIPODERMATOSCLEROSIS: NO RIGHT EXTREMITY COLORS, HAIR GROWTH, AND CONDITIONS: EXTREMITY COLOR: PIGMENTED HAIR GROWTH ON EXTREMITY: YES TEMPERATURE OF EXTREMITY: WARM CAPILARY REFILL: > 3 SECONDS ERYTHEMA: YES DEPENDENT RUBOR: NO HYPERPIGMENTATION: YES LIPODERMATOSCLEROSIS: NO OFF-LOADING: LEFT OFF-LOADING DEVICE IN USE: NO RIGHT OFF-LOADING DEVICE IN USE: NO WOUND ASSESSMENT(S) WOUND #1 RIGHT, MEDIAL LEG - LOWER IS A CHRONIC BEAR GRADE 2 DIABETIC ULCER ACQUIRED ON 10/15/2024 AND HAS RECEIVED A STATUS OF NOT HEALED. INITIAL WOUND ENCOUNTER MEASUREMENTS ARE 2.5CM LENGTH X 2.5CM WIDTH X 0.1 CM DEPTH, WITH AN AREA OF 6.25 SQ CM AND A VOLUME OF 0.625 CUBIC CM.INITIAL WOUND ENCOUNTER PREVIOUS MEASUREMENTS FROM 12/30/2024 ARE 2.5CM LENGTH X 3CM WIDTH X 0.1CM DEPTH, WITH AN AREA OF 7.5 SQ CM AND A VOLUME OF 0.75 CUBIC CM. ADIPOSE IS EXPOSED. NO TUNNELING HAS BEEN NOTED. NO SINUS TRACT HAS BEEN NOTED. NO UNDERMINING HAS BEEN NOTED. THERE IS A SCANT AMOUNT OF SEROSANGUINEOUS DRAINAGE NOTED WHICH HAS NO ODOR. THE PATIENT REPORTS A WOUND PAIN OF LEVEL 8/10. THE WOUND MARGIN IS UNABLE TO ASSESS WOUND BED HAS NO, GRANULATION, NO SLOUGH, YES ESCHAR, NO EPITHELIALIZATION. THE PERIWOUND SKIN EXHIBITED EDEMA, ECCHYMOSIS AND HEMOSIDEROSIS. THE PERIWOUND SKIN DID NOT EXHIBIT BRAWNY INDURATION, EXCORIATION, INDURATION, CALLUS, CREPITUS, FLUCTUANCE, RASH, MACERATION, ATROPHIE ABAD, CYANOSIS, ERYTHEMA, PALLOR AND RUBOR. THE PERIWOUND SKIN WAS DRY/SCALY. THE PERIWOUND SKIN WAS NOT FRIABLE AND MOIST. THE TEMPERATURE OF THE PERIWOUND SKIN IS WNL. PERIWOUND SKIN DOES NOT EXHIBIT SIGNS OR SYMPTOMS OF INFECTION. LOCAL PULSE IS DOPPLER. ADDITIONAL INFORMATION OTHER DEVITALIZED TISSUE PRESENT: BIOFILM DIANA/VASCULAR COMPLETED?: ATTEMPTED DIANA, PT DECLINED DUE TO PAIN. ART US ORDERED 12/09/24. WOUND #2 RIGHT, POSTERIOR LEG - LOWER IS A CHRONIC BEAR GRADE 2 DIABETIC ULCER ACQUIRED ON 10/15/2024 AND HAS RECEIVED A STATUS OF NOT HEALED. INITIAL WOUND ENCOUNTER MEASUREMENTS ARE 0.8CM LENGTH X 0.8CM WIDTH X 0.1 CM DEPTH, WITH AN AREA OF 0.64 SQ CM AND A VOLUME OF 0.064 CUBIC CM.INITIAL WOUND ENCOUNTER PREVIOUS MEASUREMENTS FROM 12/30/2024 ARE 1.2CM LENGTH X 0.8CM WIDTH X 0.1CM DEPTH, WITH AN AREA OF 0.96 SQ CM AND A VOLUME OF 0.096 CUBIC CM. ADIPOSE IS EXPOSED. NO TUNNELING HAS BEEN NOTED. NO SINUS TRACT HAS BEEN NOTED. NO UNDERMINING HAS BEEN NOTED. THERE IS A SCANT AMOUNT OF SEROSANGUINEOUS DRAINAGE NOTED WHICH HAS NO ODOR. THE PATIENT REPORTS A WOUND PAIN OF LEVEL 8/10. THE WOUND MARGIN IS ATTACHED WOUND BED HAS NO, GRANULATION, NO SLOUGH, YES ESCHAR, NO EPITHELIALIZATION. THE PERIWOUND SKIN EXHIBITED EDEMA, ERYTHEMA AND HEMOSIDEROSIS. THE PERIWOUND SKIN DID NOT EXHIBIT BRAWNY INDURATION, EXCORIATION, INDURATION, CALLUS, CREPITUS, FLUCTUANCE, RASH, MACERATION, ATROPHIE ABAD, CYANOSIS, ECCHYMOSIS, PALLOR AND RUBOR. THE PERIWOUND SKIN WAS DRY/SCALY. THE PERIWOUND SKIN WAS NOT FRIABLE AND MOIST. THE TEMPERATURE OF THE PERIWOUND SKIN IS WNL. PERIWOUND SKIN DOES NOT EXHIBIT SIGNS OR SYMPTOMS OF INFECTION. LOCAL PULSE IS DOPPLER. ADDITIONAL INFORMATION OTHER DEVITALIZED TISSUE PRESENT: BIOFILM DIANA/VASCULAR COMPLETED?: ATTEMPTED DIANA, PT DECLINED DUE TO PAIN. ART US ORDERED 12/09/24. HENOK ARCE [id number] 1950 WOUND #4 LEFT FOOT - DORSAL IS AN ACUTE BEAR GRADE 2 DIABETIC ULCER ACQUIRED ON 12/23/2024 AND HAS RECEIVED AN OUTCOME OF HEALED - NO NEW WOUND(S). INITIAL WOUND ENCOUNTER MEASUREMENTS ARE 0CM LENGTH X 0CM WIDTH WITH NO MEASURABLE DEPTH, WITH AN AREA OF 0 SQ CM.INITIAL WOUND ENCOUNTER PREVIOUS MEASUREMENTS FROM 12/30/2024 ARE 0.3CM LENGTH X 0.5CM WIDTH X 0.1CM DEPTH, WITH AN AREA OF 0.15 SQ CM AND A VOLUME OF 0.015 CUBIC CM. NO TUNNELING HAS BEEN NOTED. NO SINUS TRACT HAS BEEN NOTED. NO UNDERMINING HAS BEEN NOTED. THERE WAS NO DRAINAGE NOTED. THE PATIENT REPORTS A WOUND PAIN OF LEVEL 0/10. THE WOUND MARGIN IS EPITHELIAL RESURFACING WOUND BED HAS NO, GRANULATION, NO SLOUGH, NO ESCHAR, YES EPITHELIALIZATION. THE PERIWOUND SKIN DID NOT EXHIBIT BRAWNY INDURATION, EDEMA, EXCORIATION, INDURATION, CALLUS, CREPITUS, FLUCTUANCE, RASH, MACERATION, ATROPHIE ABAD, CYANOSIS, ECCHYMOSIS, ERYTHEMA, HEMOSIDEROSIS, PALLOR AND RUBOR. THE PERIWOUND SKIN WAS DRY/SCALY. THE PERIWOUND SKIN WAS NOT FRIABLE AND MOIST. THE TEMPERATURE OF THE PERIWOUND SKIN IS WNL. PERIWOUND SKIN DOES NOT EXHIBIT SIGNS OR SYMPTOMS OF INFECTION. LOCAL PULSE IS PALPABLE. ASSESSMENT ACTIVE PROBLEMS ICD-10 (ENCOUNTER DIAGNOSIS) L97.812 - NON-PRESSURE CHRONIC ULCER OF OTHER PART OF RIGHT LOWER LEG WITH FAT LAYER EXPOSED (ENCOUNTER DIAGNOSIS) L97.212 - NON-PRESSURE CHRONIC ULCER OF RIGHT CALF WITH FAT LAYER EXPOSED (ENCOUNTER DIAGNOSIS) E11.622 - TYPE 2 DIABETES MELLITUS WITH OTHER SKIN ULCER (ENCOUNTER DIAGNOSIS) L89.151 - PRESSURE ULCER OF SACRAL REGION, STAGE 1 (ENCOUNTER DIAGNOSIS) B35.9 - DERMATOPHYTOSIS, UNSPECIFIED (ENCOUNTER DIAGNOSIS) L97.522 - NON-PRESSURE CHRONIC ULCER OF OTHER PART OF LEFT FOOT WITH FAT LAYER EXPOSED (ENCOUNTER DIAGNOSIS) I73.9 - PERIPHERAL VASCULAR DISEASE, UNSPECIFIED GENERAL NOTES ULCER RIGHT LOWER EXTREMITY STABLE ULCER DORSUM LEFT FOOT HEALED THE FOLLOWING FACTORS HAVE BEEN IDENTIFIED THAT MAY AFFECT WOUND HEALING: DEVITALIZED TISSUE BIOFILM DIABETES ANTICOAGULATION OBESITY ADVANCED AGE GOALS: REMOVE DEVITALIZED TISSUE REMOVE AND PREVENT BIOFILM ASSESS ARTERIAL CIRCULATION TREAT FUNGAL RASH WOUND CLOSURE PREVENT RECURRENCE PLAN: ULCER RIGHT LOWER EXTREMITY IS TOO TENDER TO ALLOW FOR DEBRIDEMENT, CONTINUE DAILY DRESSING CHANGES WITH BETADINE SOLUTION AND ALLOW TO AIR DRY, URGENT VASCULAR SURGERY EVALUATION, CONTINUE PROTEIN SUPPLEMENTATION, E HOB CUSHION FOR PRESSURE OFFLOADING OF SACRUM, FOLLOW UP IN 1 WEEK FOR A RECHECK. HENOK ARCE [id number] 1950 PLAN WOUND ORDERS: WOUND #1 RIGHT, MEDIAL LEG - LOWER HAND HYGIENE HAND HYGIENE - WASH HANDS BEFORE AND AFTER WOUND CARE. CALL THE WOUND CENTER AT [phone] IF YOU HAVE SIGNS OR SYMPTOMS OF INFECTION, FEVER CHILLS OR SHAKES, INCREASED DRAINAGE, INCREASED ODOR OR UNUSUAL REDNESS. AFTER WOUND CENTER HOURS PLEASE NOTIFY YOUR PCP OR GO TO THE EMERGENCY ROOM. CLEANSER CLEANSE WOUND WITH NORMAL SALINE - YOU MAY ALSO PURCHASE VASHE CLEANSER TO USE AT HOME. MAY SHOWER, LEAVE WOUND DRESSING INTACT. COVER WOUND DRESSING WITH A WATERPROOF BARRIER. KEEP DRESSING DRY. NO BATHS PLEASE. PROCEDURE / ANESTHETIC 4% TOPICAL LIDOCAINE TO WOUND BED PRIOR TO PROCEDURE, IN CLINIC ONLY. TOPICAL TREATMENTS OTHER ORDER: - PAINT WITH BETADINE. DRESSING ORDERS APPLY DRESSING(S) AND SECURE WITH: - BORDERED SILICONE FOAM. DRESSING CHANGE FREQUENCY CHANGE DRESSING 3 TIMES PER WEEK. CHANGE DRESSING IF IT BECOMES SOILED OR WET. WOUND #2 RIGHT, POSTERIOR LEG - LOWER HAND HYGIENE HAND HYGIENE - WASH HANDS BEFORE AND AFTER WOUND CARE. CALL THE WOUND CENTER AT [phone] IF YOU HAVE SIGNS OR SYMPTOMS OF INFECTION, FEVER CHILLS OR SHAKES, INCREASED DRAINAGE, INCREASED ODOR OR UNUSUAL REDNESS. AFTER WOUND CENTER HOURS PLEASE NOTIFY YOUR PCP OR GO TO THE EMERGENCY ROOM. CLEANSER CLEANSE WOUND WITH NORMAL SALINE - YOU MAY ALSO PURCHASE VASHE CLEANSER TO USE AT HOME. MAY SHOWER, LEAVE WOUND DRESSING INTACT. COVER WOUND DRESSING WITH A WATERPROOF BARRIER. KEEP DRESSING DRY. NO BATHS PLEASE. PROCEDURE / ANESTHETIC 4% TOPICAL LIDOCAINE TO WOUND BED PRIOR TO PROCEDURE, IN CLINIC ONLY. TOPICAL TREATMENTS OTHER ORDER: - PAINT WITH BETADINE. DRESSING ORDERS APPLY DRESSING(S) AND SECURE WITH: - BORDERED SILICONE FOAM. DRESSING CHANGE FREQUENCY CHANGE DRESSING 3 TIMES PER WEEK. CHANGE DRESSING IF IT BECOMES SOILED OR WET. ADDITIONAL ORDERS: DIETARY FOLLOW A DIABETIC DIET. INCREASE THE PROTEIN IN YOUR DIET. - DIABETIC FRIENDLY PROTEIN SUPPLEMENT. HOME HEALTH HOME HEALTH CARE: IF YOU HAVE ANY QUESTIONS OR CONCERNS PLEASE CONTACT THE WOUND CENTER. - SIGNATURE HOME HEALTH: PLEASE SEE PATIENT FOR DRESSING CHANGES ON MONDAYS AND FRIDAYS. PT TO RETURN TO CLINIC ON WEDNESDAYS. FOLLOW-UP APPOINTMENTS RETURN APPOINTMENT 1 WEEK OTHER ORDERS: - REFERRING TO VASCULAR SURGEON PLEASE CALL AND SCHEDULE SCRIBING ATTESTATION I ATTEST, THE NURSE, THAT I SCRIBED THESE ORDERS FOR THE WOUND CARE PROVIDER. PROVIDER REVIEW AND ATTESTATION: REVIEWED AND EVALUATED LABS. REVIEWED HOSPITAL RECORDS. DISCUSSED THE PLAN OF CARE @ BEDSIDE WITH - THE PATIENT I AGREE AND ATTEST TO THE ABOVE INFORMATION PROVIDED FROM OTHER LICENSED PROFESSIONALS. PLAN OF CARE: HENOK ARCE [id number] 1950 01. ENSURE/ESTABLISH OPTIMAL BLOOD FLOW : - COMPLETE LOWER EXTREMITY ASSESSMENT STATUS: COMPLETED DATE: 12/09/2024 - PERFORM NON-INVASIVE VASCULAR TESTING (I.E. DIANA) AND DOCUMENT FINDINGS. CONSIDER REPEATING WHEN WOUND HEALING <40% AFTER 30 DAYS OF WOUND CARE. - PT DI NOT TOLERATE DIANA. STATUS: COMPLETED DATE: 12/09/2024 - ORDER VASCULAR CONSULT FOR EVALUATION/TREATMENT AND/OR NON-INVASIVE VASCULAR TESTING. - ARTERIAL US ORDERED. WILL HAVE December. STATUS: CONTINUED DATE: 01/06/2025 02. ASSESS FOR/TREAT INFECTION : - EVALUATE FOR SIGNS AND SYMPTOMS OF INFECTION AND DOCUMENT FINDINGS. STATUS: CONTINUED DATE: 01/06/2025 03. DEBRIDE WEEKLY OR MORE OFTEN PRN : - EVALUATE PATIENT IN CENTER WEEKLY TO ASSESS WOUND BED AND MARGINS FOR NEED FOR DEBRIDEMENT. STATUS: CONTINUED DATE: 01/06/2025 - DEBRIDEMENT BY ANY METHOD TO REMOVE DEVITALIZED/NECROTIC TISSUE TO PROMOTE HEALING AND PREVENT FURTHER COMPLICATIONS. GOAL IS TO STIMULATE AND/OR MAINTAIN ACUTE PHASE OF WOUND HEALING BY REDUCING BACTERIAL BURDEN AND DEVITALIZED/NON-VIABLE TISSUE. STATUS: CONTINUED DATE: 01/06/2025 04. OPTIMIZE GLUCOSE CONTROL AND NUTRITION : - ORDER/REVIEW PERTINENT LABS TO EVALUATE RENAL FUNCTION, GLUCOSE CONTROL, AND NUTRITIONAL STATUS. STATUS: CONTINUED DATE: 01/06/2025 - COMPLETE A NUTRITION RISK ASSESSMENT. STATUS: COMPLETED DATE: 12/09/2024 05. OFFLOADING PLAN : - REVIEWED, NOT APPLICABLE 06. OPTIMIZE HOST FACTORS: - ASSESS AND REVIEW PATIENT HISTORY FOR WOUND ETIOLOGY, CO-MORBID CONDITIONS, MEDICATION REGIME, AND SMOKING HISTORY. STATUS: CONTINUED DATE: 01/06/2025 07. DRESSING SELECTION : - EVALUATE FOR DRESSING-RELATED FACTORS, SUCH AVAILABILITY, WEAR TIME, ADAPTABILITY AND USE TO BETTER OPTIMIZE WOUND HEALING AND PATIENT COMPLIANCE. STATUS: CONTINUED DATE: 01/06/2025 - EDUCATE THE PATIENT/FAMILY/CAREGIVER TO MONITOR DRESSING DAILY. CHANGE DRESSING ONLY NEEDED BUT NEVER LESS FREQUENTLY THAN WEEKLY SO THAT WOUND BED CAN BE REASSESSED. STATUS: CONTINUED DATE: 01/06/2025 08. ADVANCED MODALITIES : - RE-EVALUATE PLAN OF CARE IF NO EVIDENCE OF HEALING (40% IN 4 WEEKS). STATUS: CONTINUED DATE: 01/06/2025 09. FALL PREVENTION : - COMPLETE FALL ASSESSMENT. STATUS: COMPLETED DATE: 12/09/2024 10. PAIN MANAGEMENT : - INSTRUCT THE PATIENT TO CALL ?TIME-OUT? IF PAIN IS TOO INTENSE DURING PROCEDURE. STATUS: CONTINUED DATE: 01/06/2025 11. MEASURABLE GOALS FOR WOUND HEALING AND/OR HYPERBARIC OXYGEN THERAPY : - WOUND CLOSURE STATUS: CONTINUED DATE: 01/06/2025 12. DURATION/FREQUENCY OF WOUND CARE VISITS : - 1X WEEKLY FOR 30 DAYS HENOK ARCE [id number] 1950 STATUS: CONTINUED DATE: 01/06/2025 ELECTRONIC SIGNATURE(S) SIGNED BY: DATE: AFSHAN GAO MD 01/06/2025 16:43:20 (PT) ENTERED BY: AFSHAN GAO MD ON 01/06/2025 16:24:00 (PT) HENOK ARCE [id number] 1950
== END ==
PROVIDERS: PCP Family Medicine; Referring Provider Family Medicine; Visit Provider Surgery
DX: E11.622 Type 2 diabetes mellitus with other skin ulcer (principal); L97.812 Non-pressure chronic ulcer of other part of right lower leg with fat layer exposed; I73.9 Peripheral vascular disease, unspecified; R60.0 Localized edema; R23.4 Changes in skin texture
CPT/HCPCS: 99212; 99213

== ENCOUNTER 2025-01-10 14:20 | Emergency (ER) | payer OTHER, SELFPAY ==
[2024-07-23 23:47] VITALS: BMI 39.6
[2025-01-10] VITALS (18 sets, daily range): BP systolic 143–174; BP diastolic 63–74; PULSE 66–78; RESP 12–23; TEMP 36.4; O2SAT 97–100
--- NOTE | 2025-01-10 14:33 | DI.RAD.S_ITS ---
PROCEDURE: XR CHEST 1V INDICATIONS: chest pain TECHNIQUE: One view of the chest was acquired. COMPARISON: [facility], CR, XR CHEST 1V, 11/10/2024, 17:26. FINDINGS: Surgical changes and devices: A percutaneously placed aortic valve replacement can be seen. Lungs and pleura: Lungs are clear. No pleural effusions or pneumothorax. Mediastinum: The cardiac contours are within normal limits. The aorta demonstrates calcification and tortuosity. Bones and chest wall: No suspicious bony lesions. Overlying soft tissues appear unremarkable. IMPRESSION: No acute cardiopulmonary abnormality is seen. Dictated by: Marvel Roa M.D. on 01/10/2025 at 13:55 Approved by: Marvel Roa M.D. on 01/10/2025 at 13:55
[2025-01-10 14:39] LABS: Add Manual Diff / Slide Review NO; Basophils Absolute Auto 100 /uL (0-100); Basophils Percent Auto 1.3 % (0-2); Eosinophils Absolute Auto 100 /uL (0-450); Eosinophils Percent Auto 1.7 % (2-4); Hemoglobin 10.2 g/dL (12.0-16.0); Lymphocytes Absolute Auto 1300 /uL (1100-4500); Lymphocytes Percent Auto 17.2 % (25-40); Mean Corpuscular HGB Conc 32.8 % (30-36); Mean Corpuscular Hemoglobin 26.2 PG (26-34); Mean Corpuscular Volume 79.8 fL (80-100); Monocytes Absolute Auto 700 /uL (0-900); Monocytes Percent Auto 9.2 % (3-14); Neutrophils Absolute Auto 5100 /uL (1500-7000); Neutrophils Percent Auto 70.6 % (50-75); Platelet Count 282 X10^3/uL (150-400); Red Blood Cell Count 3.88 X10^6/uL (4.0-5.2); Red Cell Distribution Width 16.4 % (11.6-14.8); White Blood Cell Count 7.3 X10^3/uL (4.5-11.0)
--- NOTE | 2025-01-10 14:39 | EKG_ITS ---
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
[2025-01-10 14:45] LABS: INR 1.1 (0.9-1.3); Prothrombin Time 12.2 SECONDS (9.4-12.5)
[2025-01-10 14:48] LABS: Alanine Aminotransferase 13 IU/L (<35); Albumin Globulin Ratio 1.1 (1.0-2.8); Alkaline Phosphatase 60 U/L (38-126); Aspartate Aminotransferase 19 IU/L (14-36); BUN Creatinine Ratio 21.1 (6-22); Bilirubin Total 0.5 mg/dL (0.2-1.3); Blood Urea Nitrogen 26 mg/dL (7-17); Calcium 9.2 mg/dL (8.4-10.2); Carbon Dioxide 26 mmol/L (22-32); Chloride 104 mmol/L (98-107); Creatine Kinase 45 U/L (30-135); Estimated Glomerular Filt Rate 47 mL/min (>60); Globulin 3.7 g/dL (1.7-4.1); Glucose 105 mg/dL (80-110); HEMOLYSIS < 15 (0-50); Lipase 114 U/L (23-300); Magnesium 1.6 mg/dL (1.6-2.3); PTT Partial Thromboplastin Tim 34 SECONDS (25.1-36.5); Potassium 4.2 mmol/L (3.4-5.1); Sodium 137 mmol/L (137-145); Total Protein 7.7 g/dL (6.3-8.2)
[2025-01-10 15:00] LABS: NT-proBNP (BNP-Adult 18+) 1590 pg/mL (<125); Troponin I < 0.012 ng/mL (0.01-0.034)
[2025-01-10 17:48] LABS: Troponin I 0.012 ng/mL (0.01-0.034)
--- NOTE | 2025-01-10 19:17 | ED.CHESTPAIN ---
HPI - Chest Pain General Chief Complaint: Chest Pain Stated Complaint: Chest pain 2 days,SOB Time Seen by Provider: 01/10/25 18:02 Mode of arrival: EMS History of Present Illness HPI narrative: 74-year-old woman with a history diabetes, peripheral vascular disease, coronary artery disease, hypertension anticoagulated on apixaban, mild cognitive decline comes in complaining of left-sided chest pain in the upper left chest intermittently couple times yesterday 1 episode today she describes it is distinctly different from the pain she had with her heart attacks. It is reproducible with palpation of the left upper chest wall. She has not had any falls there was no trauma to the area. She has a lower extremity wound on the right side that is followed by wound care with the visits scheduled for tomorrow. She does not describe fevers, cough, change to dyspnea. No visual changes. Related Data Home Medications Medication Instructions Recorded Confirmed atorvastatin 80 mg tablet (Lipitor) 80 mg PO QPM 06/02/23 11/25/24 nystatin 100,000 unit/gram topical 1 applic topical TID rash 01/16/24 11/25/24 cream Previous Rx's Medication Instructions Recorded Parking Permit... #1 ea 09/08/20 pen needle, diabetic 29 gauge x #100 ea 03/09/2210/16 (Comfort EZ Pen Farnsworth) clopidogrel 75 mg tablet 75 mg PO QAM #90 tabs 11/07/23 diltiazem HCl 120 mg 240 mg (2 x 120 mg) PO BID #180 11/07/23 capsule,extended release 12 hr caps metformin 500 mg tablet 1,000 mg (2 x 500 mg) PO BID #360 11/07/23 tabs metoprolol succinate 50 mg 50 mg PO DAILY #90 tabs 11/07/23 tablet,extended release 24 hr nitroglycerin 0.4 mg sublingual 0.4 mg sublingual Q5-15M PRN chest 11/07/23 tablet pain #90 tabs insulin glargine 100 unit/mL (3 40 unit (0.4 mL) SUBCUT QAM #15 mL 02/11/24 mL) subcutaneous pen (Lantus Solostar U-100 Insulin) vancomycin 125 mg capsule 125 mg PO Q6H #40 caps 07/25/24 blood sugar diagnostic (True #100 strips 08/19/24 Metrix Glucose Test Strip) apixaban 5 mg tablet (Eliquis) 5 mg PO BID #180 tabs 09/05/24 cephalexin 500 mg capsule 500 mg PO TID #15 caps 10/26/24 cefdinir 300 mg capsule 300 mg PO Q12H #14 caps 10/30/24 amiodarone 200 mg tablet 200 mg PO BID #180 tabs 11/26/24 semaglutide 1 mg/dose (4 mg/3 mL) 1 mg (0.75 mL) SUBCUT QWEEK #3 mL 12/08/24 subcutaneous pen injector (Ozempic) doxycycline monohydrate 100 mg 100 mg PO BID #20 caps 12/31/24 capsule Allergies Allergy/AdvReac Type Severity Reaction Status Date / Time Sulfa (Sulfonamide Allergy Mild RASH Verified 01/10/25 14:34 Antibiotics) Review of Systems Review of Systems Narrative: Pertinent positive and negative findings as per HPI Patient History Medical History Mild cognitive disorder Acute kidney injury Appendicitis with perforation Vertigo Sedentary lifestyle Stage II pressure ulcer of sacral region (~02/2023) Hyperlipidemia Thyroid nodule Incontinence Breast screening Abnormal mammogram of left breast NSTEMI (non-ST elevated myocardial infarction) (09/2018) Recent heart attack Coronary artery disease Osteopenia (05/20/14) Knee osteoarthritis Hypertension (~2011) Diabetes mellitus (~2011) Rheumatoid arthritis Colon polyps (08/31/14) Surgical History History of bilateral knee replacement (2009) History of colonoscopy with polypectomy (08/31/14) History of left cataract surgery (03/23/15) History of right cataract surgery (04/06/15) Anesthesia History of knee replacement History of knee replacement Status post delivery (12/21/78) Family History Brother Drowning Father Heart disease Mother Diabetes mellitus Sister Bone cancer Sister Bone cancer Social History marital status: household members: none Smoking Status: Never smoker alcohol intake: current substance use type: does not use Smoking Status: Never smoker alcohol intake frequency: holidays/special occasions only Alcohol type: hard liquor Exam Initial Vital Signs Initial Vital Signs: Vital Signs Temperature 97.5 F L 01/10/25 14:20 Pulse Rate 72 01/10/25 14:20 Respiratory Rate 14 01/10/25 14:20 Blood Pressure 149/70 H 01/10/25 14:20 Pulse Oximetry 100 01/10/25 14:20 Oxygen Delivery Method Room Air 01/10/25 14:20 General: Older appearing, chronically ill but in no acute distress. HEENT: Moist mucous membranes, normal sclera with reactive pupils, she does have mild anisocoria with her right pupil 1-2 mm bigger than the left. Respiratory: Lungs are clear to auscultation, no wheezing no rales no rhonchi. Full and symmetrical air movement Chest wall: Palpation over the left upper chest wall completely reduces the pain she is noting. There was no obvious bony step-off, no shoulder pain or issue, no skin changes Cardiac: Regular rate and rhythm no murmurs no bruits Abdomen: Soft, nontender, no rebound or guarding, no flank pain Skin: Dressings over the right lower extremity with no significant change to skin to suggest attending cellulitis from the area Neurologic: Grossly neurologically intact , moving all extremities, mild memory and word-finding difficulties Psych: Cooperative, fluent speech Course Orders Ordered: ED Orders 01/10/25 14:30 Complete Blood Count AUTO DIFF Stat Comprehensive Metabolic Panel Stat Lipase Stat Magnesium Stat NT-proBNP (BNP-Adult 18+) Stat PTT Partial Thromboplastin López Stat Prothrombin Time INR Stat Troponin & CK Cardiac Panel Stat 01/10/25 14:33 XR chest 1V Stat EKG-12 Lead Stat 01/10/25 17:20 Troponin I Stat Vital Signs Vital signs: Vital Signs - 8 hr 01/10/25 14:20 01/10/25 14:24 01/10/25 14:26 Temperature 97.5 F L Pulse Rate 72 75 71 Respiratory Rate 14 Blood Pressure 149/70 H Pulse Oximetry 100 98 Oxygen Delivery Method Room Air 01/10/25 14:26 01/10/25 14:30 01/10/25 15:00 Temperature Pulse Rate 71 66 Respiratory Rate 13 Blood Pressure 149/70 H Pulse Oximetry 100 98 Oxygen Delivery Method 01/10/25 15:01 01/10/25 15:01 01/10/25 15:30 Temperature Pulse Rate 66 70 Respiratory Rate 12 16 Blood Pressure 143/65 H Pulse Oximetry 98 99 Oxygen Delivery Method 01/10/25 15:30 01/10/25 16:00 01/10/25 16:00 Temperature Pulse Rate 72 Respiratory Rate 23 Blood Pressure 145/65 H 154/66 H Pulse Oximetry 99 Oxygen Delivery Method 01/10/25 16:30 01/10/25 16:30 01/10/25 17:00 Temperature Pulse Rate 72 74 Respiratory Rate 13 18 Blood Pressure 145/63 H Pulse Oximetry 98 99 Oxygen Delivery Method 01/10/25 17:00 01/10/25 17:30 01/10/25 17:30 Temperature Pulse Rate 75 Respiratory Rate 18 Blood Pressure 153/66 H 174/74 H Pulse Oximetry 99 Oxygen Delivery Method Room Air 01/10/25 18:00 01/10/25 18:01 01/10/25 18:01 Temperature Pulse Rate 75 77 Respiratory Rate 16 17 Blood Pressure 155/70 H Pulse Oximetry 98 98 Oxygen Delivery Method 01/10/25 18:30 01/10/25 18:30 Temperature Pulse Rate 74 Respiratory Rate 16 Blood Pressure 150/66 H Pulse Oximetry 97 Oxygen Delivery Method MDM - Chest Pain Lab Data 01/10/25 14:30 01/10/25 14:30 Labs: Lab Results 01/10/25 01/10/25 Range/Units 14:30 17:20 WBC 7.3 (4.5-11.0) X10^3/uL RBC 3.88 L (4.0-5.2) X10^6/uL Hgb 10.2 L (12.0-16.0) g/dL Hct 31.0 L (36-46) % MCV 79.8 L (80-100) fL MCH 26.2 (26-34) PG MCHC 32.8 (30-36) % RDW 16.4 H (11.6-14.8) % Plt Count 282 (150-400) X10^3/uL Neut % (Auto) 70.6 (50-75) % Lymph % (Auto) 17.2 L (25-40) % [place] % (Auto) 9.2 (3-14) % Eos % (Auto) 1.7 L (2-4) % Baso % (Auto) 1.3 (0-2) % Neut # (Auto) 5100 (5293-8418) /uL Lymph # (Auto) 1300 (9350-4246) /uL [place] # (Auto) 700 (0-900) /uL Eos # (Auto) 100 (0-450) /uL Baso # (Auto) 100 (0-100) /uL PT 12.2 (9.4-12.5) SECONDS INR 1.1 (0.9-1.3) APTT 34 (25.1-36.5) SECONDS Sodium 137 (137-145) mmol/L Potassium 4.2 (3.4-5.1) mmol/L Chloride 104 (98-107) mmol/L Carbon Dioxide 26 (22-32) mmol/L BUN 26 H (7-17) mg/dL Creatinine 1.23 H (0.52-1.04) mg/dL Estimated GFR 47 L (>60) mL/min BUN/Creatinine Ratio 21.1 (6-22) Glucose 105 (80-110) mg/dL Calcium 9.2 (8.4-10.2) mg/dL Magnesium 1.6 (1.6-2.3) mg/dL Total Bilirubin 0.5 (0.2-1.3) mg/dL AST 19 (14-36) IU/L ALT 13 (<35) IU/L Alkaline Phosphatase 60 (38-126) U/L Total Creatine Kinase 45 (30-135) U/L Troponin I < 0.012 0.012 (0.01-0.034) ng/mL NT-Pro-B Natriuret Pep 1590 H (<125) pg/mL Total Protein 7.7 (6.3-8.2) g/dL Albumin 4.0 (3.5-5.0) g/dL Globulin 3.7 (1.7-4.1) g/dL Albumin/Globulin Ratio 1.1 (1.0-2.8) Lipase 114 (23-300) U/L MDM Narrative Medical decision making narrative: CC: Chest pain yesterday couple episodes today Complicating co-morbidities: Coronary artery disease, anticoagulated, hypertension, hyperlipidemia 1 diabetes Data collected from: patient Social determinants of health that may influence the patients condition: Patient lives with her son Medical records reviewed: Primary care notes regarding her chronic atrial fibrillation are reviewed Differential considered: Shingles, trauma, pneumothorax, pneumonia, acute coronary syndrome Exam documented above, pertinent findings include: Patient has used the close to her baseline. Reproducible chest pain with palpation in the left upper chest. Lungs are otherwise clear. Right lower extremity wound cares well-dressed, wound care appointment scheduled for the morning, I am not concerned that there was increasing infection or cellulitis at that area Lab Test results independently reviewed as above. Pertinent findings: CBC is unremarkable. Chronic stable anemia Metabolic panel shows stable kidney disease with creatinine at 1.2. No electrolyte abnormalities. First and 2nd troponin are both undetectable Mildly elevated BNP Lipase is normal Independently reviewed EKG: Sinus rhythm at a rate of 69, nonspecific STT wave changes without acute ischemia Imaging studies independently reviewed: Chest x-ray is unremarkable and does not suggest volume overload Treatments: Oral Tylenol Discussion: 74-year-old woman with 36 hours of reproducible left upper chest wall pain. Workup today does not suggest infection, shingles, acute coronary component or alternate explanation that would require further workup or hospitalization at this time. No other acute findings were elucidated with lab work and studies done. I encouraged her to keep her wound care appointment tomorrow. She was given Tylenol to help with the musculoskeletal chest wall pain and is safe for discharge home Discharge Plan Departure Patient Disposition: Home Clinical Impression: Acute chest wall pain Instructions: DI for Musculoskeletal Pain Activity Restrictions/Additional Instructions: Thank you for coming in today It is sometimes difficult to tell which chest pain you need to worry about and which is less concerning. Fortunately, your workup today shows no evidence of heart attack, infection, shingles, collapsed lung or other findings that are life-threatening or would require hospitalization The fact that I can push on the area of concern and it hurts suggest that it is muscles and bones that are causing your pain. I would recommend Tylenol as needed for the pain. You do need to keep your appointment with wound care tomorrow regarding your lower extremity wound. If you find that you are getting worse or develop any new symptoms, please feel free to return to the emergency department for further evaluation. Prescriptions: No Action (DME) pen needle, diabetic [Comfort EZ Pen Farnsworth] 29 gauge x 1/2 needle See Rx Instructions .ROUTE .MEDSUPPLY Qty: 100 3RF Rx Instructions: use to check blood glucose 3x per day insulin glargine [Lantus Solostar U-100 Insulin] 100 unit/mL (3 mL) insulin pen 40 unit SUBCUT QAM Qty: 15 3RF (DME) True Metrix Glucose Test Strip Strip See Rx Instructions .ROUTE .COMPLEX Qty: 100 3RF Dose Instruction: USE TO TEST BLOOD SUGAR DAILY Rx Instructions: USE TO TEST BLOOD SUGAR DAILY Eliquis 5 mg tablet 5 mg PO BID Qty: 180 2RF amiodarone 200 mg tablet 200 mg PO BID Qty: 180 1RF Ozempic 1 mg/dose (4 mg/3 mL) pen injector 1 mg SUBCUT QWEEK Qty: 3 1RF (DME) Parking Permit... See Rx Instructions .Route .MEDSUPPLY Qty: 1 0RF Rx Instructions: Patient meets criteria for permanent parking placard. metoprolol succinate 50 mg tablet extended release 24 hr 50 mg PO DAILY Qty: 90 3RF diltiazem HCl 120 mg capsule,extended release 12 hr 240 mg PO BID Qty: 180 3RF clopidogrel 75 mg tablet 75 mg PO QAM Qty: 90 3RF metformin 500 mg tablet 1,000 mg PO BID Qty: 360 3RF Rx Instructions: TAKE TWO TABLETS BY MOUTH TWICE DAILY nitroglycerin 0.4 mg tablet, sublingual 0.4 mg SL Q5-15M PRN (Reason: chest pain) Qty: 90 11RF Patient Comments: patient has prescription but has not taken yet Rx Instructions: until response; do not exceed 3 doses per episode atorvastatin [Lipitor] 80 mg tablet 80 mg PO QPM nystatin 100,000 unit/gram cream 1 applic topical TID vancomycin 125 mg Capsule 125 mg PO Q6H Qty: 40 0RF cephalexin 500 mg capsule 500 mg PO TID Qty: 15 0RF cefdinir 300 mg capsule 300 mg PO Q12H Qty: 14 0RF doxycycline monohydrate 100 mg capsule 100 mg PO BID Qty: 20 0RF Referrals: Chino Ruggiero MD [Primary Care Provider] - Stand Alone Forms: Patient Portal/API/Survey
== END 2025-01-10 20:22 | disposition home or self-care (01) ==
PROVIDERS: Emergency Medicine; Emergency Provider Emergency Medicine; PCP Family Medicine
DX: R07.89 Other chest pain (principal); Z86.79 Personal history of other diseases of the circulatory system
CPT/HCPCS: 36415; 71045; 80053; 82550; 83690; 83735; 83880; 84484; 85025; 85610; 85730; 93005; 93010; 99283; 99284

== ENCOUNTER → 2025-01-13 09:17 | Outpatient (CLI) | payer OTHER, SELFPAY ==
[2024-07-23 23:47] VITALS: BMI 39.6
== END ==
PROVIDERS: PCP Family Medicine; Referring Provider Family Medicine; Visit Provider Surgery
DX: E11.622 Type 2 diabetes mellitus with other skin ulcer (principal); L97.812 Non-pressure chronic ulcer of other part of right lower leg with fat layer exposed; L97.212 Non-pressure chronic ulcer of right calf with fat layer exposed; L89.151 Pressure ulcer of sacral region, stage 1; I73.9 Peripheral vascular disease, unspecified; R60.0 Localized edema; R23.4 Changes in skin texture; L98.8 Other specified disorders of the skin and subcutaneous tissue; M79.604 Pain in right leg
CPT/HCPCS: 99213

== ENCOUNTER → 2025-01-15 07:21 | Outpatient (CLI) | payer OTHER, SELFPAY ==
[2024-07-23 23:47] VITALS: BMI 39.6
--- NOTE | 2025-01-15 07:23 | DI.CT.S_ITS ---
PROCEDURE: CT ANGIO ABD AORTA RUNOFF INDICATIONS: eval arterial status TECHNIQUE: After the administration of intravenous contrast, 2.5 mm sections acquired from T12 to the feet, with optional delayed image acquisition from the knees to the feet. 3-dimensional maximum intensity projection (MIP) coronal and sagittal reformats, and/or 3-dimensional volume rendering reformatting was then performed. For radiation dose reduction, the following was used: automated exposure control. COMPARISON: None. FINDINGS: Image Quality: Diagnostic. Abdominal aorta: Moderate atherosclerotic plaque without stenosis. Splanchnic vessels: No hemodynamically significant stenosis. Right lower extremity: No hemodynamically significant stenosis of the iliac vessels or common femoral artery. Tandem, less than 25% stenosis of the superficial femoral artery, most prominent within the mid to distal segment. Tandem multifocal stenosis of the popliteal artery, mostly less than 25%, with a short segment of greater than 50%. Extensive atherosclerotic disease of the calf vessels. The anterior tibial artery is occluded proximally to distally. Peroneal artery is patent . Posterior tibial artery likely demonstrates multifocal occlusion (obscured by calcification), but is patent at the ankle. Left lower extremity: No hemodynamically significant stenosis of the iliac arteries or common femoral artery. Less than 25%, tandem stenosis of the superficial femoral artery. Tandem, mostly less than 25% stenosis of the popliteal artery, with a short segment of approximately 50% narrowing. Extensive atherosclerotic disease of the calf vessels. The anterior tibial and peroneal artery are patent at the ankle. Occlusion of the posterior tibial artery proximally. Lower Chest: Cardiomegaly. Prosthetic valve. ABDOMEN: Liver: No solid mass. Gallbladder: No radiopaque gallstones or wall thickening. Biliary ducts: No biliary dilation. Pancreas: No ductal dilation. Spleen: Size is within normal limits. Adrenal Glands: No adrenal nodules. Kidneys and Ureters: 1.4 cm stone within the left renal pelvis, without hydronephrosis. Small burden of bilateral, punctate, nonobstructing nephrolithiasis otherwise. Bilateral urothelial wall thickening. Stomach and Bowel: Normal colonic caliber, without significant wall thickening. Colonic diverticulosis without evidence of diverticulitis. Peritoneum: No abnormal intraperitoneal fluid. No free air. Ventral Wall: No hernia. Abdominal Nodes: No retroperitoneal or mesenteric adenopathy by size criteria. Vessels: Aorta and inferior vena cava are normal in size. PELVIS: Pelvic Organs: Simple appearing left ovarian cyst measuring 2 cm. Bladder: Diffuse wall thickening, perivesicular fat stranding and wall stratification. Pelvic Nodes: No enlarged lymph nodes. Miscellaneous: No inguinal hernias are seen. Bones: No aggressive osseous abnormality. Calf edema. IMPRESSION: Suspected cystitis, with bladder wall thickening, perivesicular fat stranding and wall stratification. Evidence of ascending urinary tract infection are also present, with bilateral urothelial wall thickening. No CT evidence of pyelonephritis at this time. 1.4 cm stone within the left renal pelvis. Consider urology referral. Atherosclerotic disease, most prominent in the calf vessels. Of note: Proximal occlusion of the right anterior tibial artery. Two vessel runoff. Proximal closure in of the left posterior tibial artery. Two vessel runoff. Dictated by: Yves Bush M.D. on 01/15/2025 at 8:15 Approved by: Yves Bush M.D. on 01/15/2025 at 8:23
== END ==
PROVIDERS: PCP Family Medicine; Referring Provider Surgery; Visit Provider Surgery
DX: L97.812 Non-pressure chronic ulcer of other part of right lower leg with fat layer exposed (principal); L97.522 Non-pressure chronic ulcer of other part of left foot with fat layer exposed; I70.201 Unspecified atherosclerosis of native arteries of extremities, right leg; I70.202 Unspecified atherosclerosis of native arteries of extremities, left leg; I70.0 Atherosclerosis of aorta; I51.7 Cardiomegaly; N20.0 Calculus of kidney; K57.90 Diverticulosis of intestine, part unspecified, without perforation or abscess without bleeding; N83.202 Unspecified ovarian cyst, left side; Z95.2 Presence of prosthetic heart valve
CPT/HCPCS: 75635; Q9967

== ENCOUNTER → 2025-01-27 14:08 | Outpatient (CLI) | payer OTHER, SELFPAY ==
[2024-07-23 23:47] VITALS: BMI 39.6
== END ==
PROVIDERS: PCP Family Medicine; Referring Provider Family Medicine; Visit Provider Surgery
DX: E11.622 Type 2 diabetes mellitus with other skin ulcer (principal); L97.812 Non-pressure chronic ulcer of other part of right lower leg with fat layer exposed; L98.8 Other specified disorders of the skin and subcutaneous tissue; I73.9 Peripheral vascular disease, unspecified
CPT/HCPCS: 99213

== ENCOUNTER → 2025-02-03 14:06 | Outpatient (CLI) | payer OTHER, SELFPAY ==
[2024-07-23 23:47] VITALS: BMI 39.6
== END ==
PROVIDERS: PCP Family Medicine; Referring Provider Family Medicine; Visit Provider Surgery
DX: E11.622 Type 2 diabetes mellitus with other skin ulcer (principal); L97.812 Non-pressure chronic ulcer of other part of right lower leg with fat layer exposed; L97.312 Non-pressure chronic ulcer of right ankle with fat layer exposed; I73.9 Peripheral vascular disease, unspecified; L98.8 Other specified disorders of the skin and subcutaneous tissue; L53.8 Other specified erythematous conditions; Z79.01 Long term (current) use of anticoagulants
CPT/HCPCS: 11042; 87070; 87075; 87205; 99213

== ENCOUNTER → 2025-02-10 14:08 | Outpatient (CLI) | payer OTHER, SELFPAY ==
[2024-07-23 23:47] VITALS: BMI 39.6
== END ==
PROVIDERS: PCP Family Medicine; Referring Provider Family Medicine; Visit Provider Surgery
DX: E11.622 Type 2 diabetes mellitus with other skin ulcer (principal); L97.812 Non-pressure chronic ulcer of other part of right lower leg with fat layer exposed; L97.212 Non-pressure chronic ulcer of right calf with fat layer exposed; I73.9 Peripheral vascular disease, unspecified; L98.8 Other specified disorders of the skin and subcutaneous tissue; R21 Rash and other nonspecific skin eruption
CPT/HCPCS: 99213

== ENCOUNTER → 2025-02-24 14:33 | Outpatient (CLI) | payer OTHER, SELFPAY ==
[2024-07-23 23:47] VITALS: BMI 39.6
== END ==
LOC: WC 14:34
PROVIDERS: PCP Family Medicine; Referring Provider Family Medicine; Visit Provider Surgery
DX: E11.622 Type 2 diabetes mellitus with other skin ulcer (principal); L97.812 Non-pressure chronic ulcer of other part of right lower leg with fat layer exposed; I73.9 Peripheral vascular disease, unspecified; R60.0 Localized edema
CPT/HCPCS: 99213

== ENCOUNTER → 2025-03-10 16:32 | Outpatient (CLI) | payer OTHER, SELFPAY ==
[2024-07-23 23:47] VITALS: BMI 39.6
== END ==
PROVIDERS: PCP Family Medicine; Referring Provider Family Medicine; Visit Provider Surgery
DX: E11.622 Type 2 diabetes mellitus with other skin ulcer (principal); L97.812 Non-pressure chronic ulcer of other part of right lower leg with fat layer exposed; I73.9 Peripheral vascular disease, unspecified; R60.0 Localized edema; Z86.31 Personal history of diabetic foot ulcer; R23.3 Spontaneous ecchymoses
CPT/HCPCS: 11042; 99213

== ENCOUNTER → 2025-03-17 13:48 | Outpatient (CLI) | payer OTHER, SELFPAY ==
[2024-07-23 23:47] VITALS: BMI 39.6
== END ==
LOC: WC 13:50
PROVIDERS: PCP Family Medicine; Referring Provider Family Medicine; Visit Provider Surgery
DX: E11.622 Type 2 diabetes mellitus with other skin ulcer (principal); L97.812 Non-pressure chronic ulcer of other part of right lower leg with fat layer exposed; I73.9 Peripheral vascular disease, unspecified; R60.0 Localized edema; Z79.01 Long term (current) use of anticoagulants; E66.9 Obesity, unspecified; Z68.35 Body mass index [BMI] 35.0-35.9, adult
CPT/HCPCS: 11042

== ENCOUNTER → 2025-03-26 08:31 | Outpatient (CLI) | payer OTHER, SELFPAY ==
[2024-07-23 23:47] VITALS: BMI 39.6
== END ==
LOC: WC 08:35
PROVIDERS: PCP Family Medicine; Referring Provider Family Medicine; Visit Provider Surgery
DX: E11.622 Type 2 diabetes mellitus with other skin ulcer (principal); L97.812 Non-pressure chronic ulcer of other part of right lower leg with fat layer exposed; B35.9 Dermatophytosis, unspecified; I73.9 Peripheral vascular disease, unspecified; Z79.01 Long term (current) use of anticoagulants; R60.0 Localized edema; E66.9 Obesity, unspecified; Z68.35 Body mass index [BMI] 35.0-35.9, adult
CPT/HCPCS: 11042

== ENCOUNTER → 2025-03-31 15:48 | Outpatient (CLI) | payer OTHER, SELFPAY ==
[2024-07-23 23:47] VITALS: BMI 39.6
== END ==
LOC: WC 15:49
PROVIDERS: PCP Family Medicine; Referring Provider Family Medicine; Visit Provider Surgery
DX: E11.622 Type 2 diabetes mellitus with other skin ulcer (principal); L97.812 Non-pressure chronic ulcer of other part of right lower leg with fat layer exposed; I73.9 Peripheral vascular disease, unspecified; M17.11 Unilateral primary osteoarthritis, right knee
CPT/HCPCS: 11042

== ENCOUNTER → 2025-04-07 16:03 | Outpatient (CLI) | payer OTHER, SELFPAY ==
[2024-07-23 23:47] VITALS: BMI 39.6
== END ==
LOC: WC 16:04
PROVIDERS: PCP Family Medicine; Referring Provider Family Medicine; Visit Provider Surgery
DX: E11.622 Type 2 diabetes mellitus with other skin ulcer (principal); L97.812 Non-pressure chronic ulcer of other part of right lower leg with fat layer exposed; R60.0 Localized edema; R29.6 Repeated falls; I11.0 Hypertensive heart disease with heart failure; I50.9 Heart failure, unspecified; I25.10 Atherosclerotic heart disease of native coronary artery without angina pectoris; E66.9 Obesity, unspecified; Z68.35 Body mass index [BMI] 35.0-35.9, adult; Z79.01 Long term (current) use of anticoagulants; Z98.62 Peripheral vascular angioplasty status
CPT/HCPCS: 11042; 99213

== ENCOUNTER → 2025-04-14 16:12 | Outpatient (CLI) | payer OTHER, SELFPAY ==
[2024-07-23 23:47] VITALS: BMI 39.6
== END ==
LOC: WC 16:13
PROVIDERS: PCP Family Medicine; Referring Provider Family Medicine; Visit Provider Surgery
DX: E11.622 Type 2 diabetes mellitus with other skin ulcer (principal); L97.812 Non-pressure chronic ulcer of other part of right lower leg with fat layer exposed; I73.9 Peripheral vascular disease, unspecified; R60.0 Localized edema; M17.9 Osteoarthritis of knee, unspecified
CPT/HCPCS: 11042

== ENCOUNTER 2025-04-16 11:54 | Emergency (ER) | payer OTHER, SELFPAY ==
[2024-07-23 23:47] VITALS: BMI 39.6
[2025-04-16 12:04] VITALS: BP 130/58; PULSE 69; RESP 16; TEMP 37.1; O2SAT 100; BMI 42.0
[2025-04-16 12:50] LABS: Culture Indicated Urine Cult Not Indicated
--- NOTE | 2025-04-16 13:04 | ED.FEMALEGU ---
HPI - Female Genitourinary General Chief complaint: Urogenital-Female Stated complaint: UTI Time Seen by Provider: 04/16/25 12:39 Source: patient and EMS Mode of arrival: EMS History of Present Illness HPI Narrative: Patient brought in by ambulance from home for urinary frequency urgency and dysuria and urgency. Patient has history UTI. Denies any kidney failure. Patient is on blood thinners. Patient does have history of high blood pressure as well as atrial fibrillation. Patient is diabetic. No fever or chills. Vital signs are reassuring. Related Data Home Medications ?Medication ?Instructions ?Recorded ?Confirmed atorvastatin 80 mg tablet (Lipitor) 80 mg PO QPM 06/02/23 11/25/24 nystatin 100,000 unit/gram topical 1 applic topical TID rash 01/16/24 11/25/24 cream Previous Rx's ?Medication ?Instructions ?Recorded Parking Permit... #1 ea 09/08/20 pen needle, diabetic 29 gauge x #100 ea 03/09/2210/16 (Comfort EZ Pen [place]) diltiazem HCl 120 mg 240 mg (2 x 120 mg) PO BID #180 11/07/23 capsule,extended release 12 hr caps metformin 500 mg tablet 1,000 mg (2 x 500 mg) PO BID #360 11/07/23 tabs nitroglycerin 0.4 mg sublingual 0.4 mg sublingual Q5-15M PRN chest 11/07/23 tablet pain #90 tabs insulin glargine 100 unit/mL (3 40 unit (0.4 mL) SUBCUT QAM #15 mL 02/11/24 mL) subcutaneous pen (Lantus Solostar U-100 Insulin) vancomycin 125 mg capsule 125 mg PO Q6H #40 caps 07/25/24 apixaban 5 mg tablet (Eliquis) 5 mg PO BID #180 tabs 09/05/24 cephalexin 500 mg capsule 500 mg PO TID #15 caps 10/26/24 cefdinir 300 mg capsule 300 mg PO Q12H #14 caps 10/30/24 amiodarone 200 mg tablet 200 mg PO BID #180 tabs 11/26/24 doxycycline monohydrate 100 mg 100 mg PO BID #20 caps 12/31/24 capsule clopidogrel 75 mg tablet 75 mg PO QAM #90 tabs 01/12/25 metoprolol succinate 50 mg 50 mg PO DAILY #14 tabs 01/20/25 tablet,extended release 24 hr blood sugar diagnostic (True #100 strips 01/30/25 Metrix Glucose Test Strip) semaglutide 1 mg/dose (4 mg/3 mL) 1 mg (0.75 mL) SUBCUT QWEEK #3 mL 04/02/25 subcutaneous pen injector (Ozempic) cefdinir 300 mg capsule 300 mg PO BID #10 caps 04/16/25 phenazopyridine 100 mg tablet 100 mg PO TID PRN pain 6 doses #6 04/16/25 (Pyridium) tabs Allergies Allergy/AdvReac Type Severity Reaction Status Date / Time Sulfa (Sulfonamide Allergy Mild RASH Verified 01/10/25 14:34 Antibiotics) Review of Systems Review of Systems Narrative: GENERAL: Negative chills, fatigue, malaise, fever, sweats. HEENT: Negative sinus pain, ear pain, sore throat RESPIRATORY: Negative dyspnea, cough CARDIOVASCULAR: Negative chest pain, palpitations GASTROINTESTINAL: Negative vomiting, nausea, abdominal pain : Positive dysuria, frequency, negative hematuria MUSCULOSKELETAL: Negative muscle or bony pain SKIN: Negative rash, skin lesions NEUROLOGIC: Negative weakness, numbness ROS Unobtainable: All systems reviewed & are unremarkable except as noted in HPI and below Patient History Medical History Mild cognitive disorder Acute kidney injury Appendicitis with perforation Vertigo Sedentary lifestyle Stage II pressure ulcer of sacral region (~02/2023) Hyperlipidemia Thyroid nodule Incontinence Breast screening Abnormal mammogram of left breast NSTEMI (non-ST elevated myocardial infarction) (09/2018) Recent heart attack Coronary artery disease Osteopenia (05/20/14) Knee osteoarthritis Hypertension (~2011) Diabetes mellitus (~2011) Rheumatoid arthritis Colon polyps (08/31/14) Surgical History History of bilateral knee replacement (2009) History of colonoscopy with polypectomy (08/31/14) History of left cataract surgery (03/23/15) History of right cataract surgery (04/06/15) Anesthesia History of knee replacement History of knee replacement Status post delivery (12/21/78) Family History Brother Drowning Father Heart disease Mother Diabetes mellitus Sister Bone cancer Sister Bone cancer Alcohol type: hard liquor Exam Narrative Exam Narrative: GENERAL: in no distress, not toxic not dyspneic HEAD: Normocephalic. EYES: Pupils equal round ENT: Mucous membranes moist. NECK: Trachea midline. CARDIOVASCULAR: Regular rate and rhythm RESPIRATORY: Clear to auscultation. Breath sounds equal bilaterally. No wheezes, rales, or rhonchi. GASTROINTESTINAL: Abdomen soft, non-tender no CVA tenderness no peritoneal signs no guarding no rebound bowel sounds are present. EXTREMITIES: No gross deformities. BACK: No flank tenderness. NEURO: AOx4. Clear speech SKIN: Warm and dry PSYCH: Not anxious, is cooperative Initial Vital Signs Initial Vital Signs: Vital Signs Temperature 98.7 F 04/16/25 12:04 Pulse Rate 69 04/16/25 12:04 Respiratory Rate 16 04/16/25 12:04 Blood Pressure 130/58 L 04/16/25 12:04 Pulse Oximetry 100 04/16/25 12:04 Oxygen Delivery Method Room Air 04/16/25 12:04 Course Orders Ordered: Discontinued Medications Cefdinir (Cefdinir 300 Mg Capsule) 300 mg PO NOW ONE Stop: 04/16/25 13:05 Last Admin: 04/16/25 13:07 Dose: 300 mg Documented By: MARILEE Phenazopyridine HCl (Phenazopyridine 100 Mg Tablet) 100 mg PO NOW ONE Stop: 04/16/25 13:05 Last Admin: 04/16/25 13:07 Dose: 100 mg Documented By: MARILEE Vital Signs Vital signs: Vital Signs - 8 hr 04/16/25 12:04 Temperature 98.7 F Pulse Rate 69 Respiratory Rate 16 Blood Pressure 130/58 L Pulse Oximetry 100 Oxygen Delivery Method Room Air MDM - Female Genitourinary Lab Data Labs: Lab Results 04/16/25 Range/Units 12:23 Urine RBC 0-1/hpf D (0-5/HPF) Urine WBC >100/hpf H (0-5/HPF) Ur Squamous Epith Cells 1-5 /hpf (0-5/HPF) Urine Bacteria Many (>30) H (None) Ur Culture Indicated? Cult not indicated Micro UA Comment Vol Urine Centrifuged 10ml (spun) MDM Narrative Medical decision making narrative: Patient brought in by ambulance from home for urinary frequency urgency and dysuria and urgency. Patient has history UTI. Denies any kidney failure. Patient is on blood thinners. Patient does have history of high blood pressure as well as atrial fibrillation. Patient is diabetic. No fever or chills. Vital signs are reassuring. After history and exam, urinalysis MDM Medical records reviewed: No recent visit for this complaint Differential considered: Includes but not limited to cystitis UTI pyelonephritis sepsis Lab Test results independently reviewed as above. Pertinent findings: Urinalysis positive WBC greater than 100, positive bacteria Consultations: None indicated at this time Re-evaluations: 1:10 p.m.. Updated patient results. She does agree for treatment for UTI. Return precautions reviewed. Nontoxic at discharge. She desires discharge home. She is awake alert oriented x4. Discussion: Appropriate discharge home. Exam is reassuring. Exam and vital signs reassuring. No blood. Imaging indicated. Treating clinically for UTI. Diagnosis: Acute UTI Discharge Plan Departure Patient Disposition: Home Clinical Impression: Urinary tract infection Qualifiers: Urinary tract infection type: site unspecified Hematuria presence: without hematuria Qualified Code(s): N39.0 - Urinary tract infection, site not specified Instructions: DI for Urinary Tract Infection (UTI) Activity Restrictions/Additional Instructions: Please continue home medications. See family doctor next week for re-evaluation. Antibiotics have been started and provided prescription printed for you. Please continue them later today. Return if worse if any questions or concerns. Keep well hydrated. Prescriptions: New cefdinir 300 mg capsule 300 mg PO BID Qty: 10 0RF phenazopyridine [Pyridium] 100 mg tablet 100 mg PO TID PRN (Reason: pain) Qty: 6 0RF No Action (DME) pen needle, diabetic [Comfort EZ Pen [place]] 29 gauge x 1/2 needle See Rx Instructions .ROUTE .MEDSUPPLY Qty: 100 3RF Rx Instructions: use to check blood glucose 3x per day insulin glargine [Lantus Solostar U-100 Insulin] 100 unit/mL (3 mL) insulin pen 40 unit SUBCUT QAM Qty: 15 3RF Eliquis 5 mg tablet 5 mg PO BID Qty: 180 2RF amiodarone 200 mg tablet 200 mg PO BID Qty: 180 1RF clopidogrel 75 mg tablet 75 mg PO QAM Qty: 90 3RF metoprolol succinate 50 mg tablet extended release 24 hr 50 mg PO DAILY Qty: 14 0RF Rx Instructions: MUST ATTEND 02/03 APPT FOR FURTHER REFILLS (DME) True Metrix Glucose Test Strip Strip See Rx Instructions .ROUTE .COMPLEX Qty: 100 3RF Dose Instruction: USE TO TEST BLOOD SUGAR DAILY Rx Instructions: USE TO TEST BLOOD SUGAR DAILY Ozempic 1 mg/dose (4 mg/3 mL) pen injector 1 mg SUBCUT QWEEK Qty: 3 0RF (DME) Parking Permit... See Rx Instructions .Route .MEDSUPPLY Qty: 1 0RF Rx Instructions: Patient meets criteria for permanent parking placard. diltiazem HCl 120 mg capsule,extended release 12 hr 240 mg PO BID Qty: 180 3RF metformin 500 mg tablet 1,000 mg PO BID Qty: 360 3RF Rx Instructions: TAKE TWO TABLETS BY MOUTH TWICE DAILY nitroglycerin 0.4 mg tablet, sublingual 0.4 mg SL Q5-15M PRN (Reason: chest pain) Qty: 90 11RF Patient Comments: patient has prescription but has not taken yet Rx Instructions: until response; do not exceed 3 doses per episode atorvastatin [Lipitor] 80 mg tablet 80 mg PO QPM nystatin 100,000 unit/gram cream 1 applic topical TID vancomycin 125 mg Capsule 125 mg PO Q6H Qty: 40 0RF cephalexin 500 mg capsule 500 mg PO TID Qty: 15 0RF cefdinir 300 mg capsule 300 mg PO Q12H Qty: 14 0RF doxycycline monohydrate 100 mg capsule 100 mg PO BID Qty: 20 0RF Referrals: Chino Ruggiero MD [Primary Care Provider, Family Practice] Stand Alone Forms: Patient Portal/API
[2025-04-16] MEDS: PHENAZOPYRIDINE 100 MG TABLET PO (13:07)
[2025-04-16] MEDS: CEFDINIR 300 MG CAPSULE PO (13:07)
[2025-04-16 13:56] VITALS: BP 130/68; PULSE 69; RESP 16; TEMP 37.1; O2SAT 100
== END 2025-04-16 13:57 | disposition home or self-care (01) ==
PROVIDERS: Emergency Provider Emergency Medicine; PCP Family Medicine
DX: N39.0 Urinary tract infection, site not specified (principal)
CPT/HCPCS: 81015; 87077; 87086; 87186; 99283

== ENCOUNTER → 2025-04-21 15:36 | Outpatient (CLI) | payer OTHER, SELFPAY ==
[2024-07-23 23:47] VITALS: BMI 39.6
== END ==
PROVIDERS: PCP Family Medicine; Referring Provider Family Medicine; Visit Provider Surgery
DX: E11.622 Type 2 diabetes mellitus with other skin ulcer (principal); L97.812 Non-pressure chronic ulcer of other part of right lower leg with fat layer exposed; I73.9 Peripheral vascular disease, unspecified; Z79.01 Long term (current) use of anticoagulants; E66.9 Obesity, unspecified; Z68.35 Body mass index [BMI] 35.0-35.9, adult
CPT/HCPCS: 11042

== ENCOUNTER → 2025-04-28 11:36 | Outpatient (CLI) | payer OTHER, SELFPAY ==
[2024-07-23 23:47] VITALS: BMI 39.6
== END ==
LOC: WC 11:37
PROVIDERS: PCP Family Medicine; Referring Provider Family Medicine; Visit Provider Surgery
DX: E11.622 Type 2 diabetes mellitus with other skin ulcer (principal); L97.812 Non-pressure chronic ulcer of other part of right lower leg with fat layer exposed; B35.9 Dermatophytosis, unspecified; I73.9 Peripheral vascular disease, unspecified; Z79.01 Long term (current) use of anticoagulants; E66.9 Obesity, unspecified; Z68.35 Body mass index [BMI] 35.0-35.9, adult
CPT/HCPCS: 11042

== ENCOUNTER → 2025-05-04 14:01 | Outpatient (CLI) | payer OTHER, SELFPAY ==
[2024-07-23 23:47] VITALS: BMI 39.6
[2025-05-04 15:13] LABS: Add Manual Diff / Slide Review NO; Hematocrit 30.5 % (36-46); Hemoglobin 10.3 g/dL (12.0-16.0); Lymphocytes Absolute Auto 1000 /uL (1100-4500); Mean Corpuscular HGB Conc 33.8 % (30-36); Mean Corpuscular Hemoglobin 27.2 PG (26-34); Mean Corpuscular Volume 80.5 fL (80-100); Platelet Count 221 X10^3/uL (150-400)
[2025-05-04 15:17] LABS: Hemoglobin A1C% w Est Avg Glu 5.9 % (4.0-6.0)
[2025-05-04 15:19] LABS: Appearance Urine UA SL CLOUDY; Bilirubin Urine UA NEGATIVE (NEGATIVE); Color Urine UA YELLOW; Glucose Urine UA NEGATIVE (Negative); Ketones Urine UA NEGATIVE (NEGATIVE); Leukocyte Esterase Urine UA 3+ (NEGATIVE); Nitrite Urine UA POSITIVE (Negative); Occult Blood Urine UA 3+ (Negative); Protein Urine UA 2+ (Negative); Specific Gravity Urine UA 1.010 (1.000-1.035); Urobilinogen Urine UA 1.0 E.U./dL (0.2)
[2025-05-04 15:22] LABS: pH Urine UA 8.5 (4.5-8.0)
[2025-05-04 15:28] LABS: Culture Indicated Urine Specimen Cultured
[2025-05-04 15:31] LABS: Alanine Aminotransferase 12 IU/L (<35); Albumin 3.9 g/dL (3.5-5.0); Albumin Globulin Ratio 1.1 (1.0-2.8); Alkaline Phosphatase 65 U/L (38-126); Blood Urea Nitrogen 30 mg/dL (7-17); Calcium 8.7 mg/dL (8.4-10.2); Carbon Dioxide 27 mmol/L (22-32); Chloride 106 mmol/L (98-107); Estimated Glomerular Filt Rate 48 mL/min (>60); Globulin 3.4 g/dL (1.7-4.1); Glucose 151 mg/dL (70-99); HEMOLYSIS < 15 (0-50); Potassium 4.2 mmol/L (3.4-5.1); Sodium 140 mmol/L (137-145); Total Protein 7.3 g/dL (6.3-8.2)
[2025-05-04 16:01] LABS: TSH w/ Reflex to FT4 1.14 uIU/mL (0.47-4.68)
== END ==
PROVIDERS: PCP Family Medicine; Referring Provider Family Medicine; Visit Provider Family Medicine
DX: I10 Essential (primary) hypertension (principal); E11.9 Type 2 diabetes mellitus without complications; Z79.4 Long term (current) use of insulin; E11.622 Type 2 diabetes mellitus with other skin ulcer; I25.10 Atherosclerotic heart disease of native coronary artery without angina pectoris; Z79.899 Other long term (current) drug therapy; L97.909 Non-pressure chronic ulcer of unspecified part of unspecified lower leg with unspecified severity
CPT/HCPCS: 36415; 80053; 81001; 83036; 84443; 85025; 87077; 87086

== ENCOUNTER → 2025-05-05 12:07 | Outpatient (CLI) | payer OTHER, SELFPAY ==
[2024-07-23 23:47] VITALS: BMI 39.6
== END ==
LOC: WC 12:07
PROVIDERS: PCP Family Medicine; Referring Provider Family Medicine; Visit Provider Surgery
DX: E11.622 Type 2 diabetes mellitus with other skin ulcer (principal); L97.812 Non-pressure chronic ulcer of other part of right lower leg with fat layer exposed; I73.9 Peripheral vascular disease, unspecified; R60.0 Localized edema; E66.9 Obesity, unspecified; Z68.35 Body mass index [BMI] 35.0-35.9, adult; Z79.84 Long term (current) use of oral hypoglycemic drugs
CPT/HCPCS: 11042

== ENCOUNTER → 2025-05-12 11:37 | Outpatient (CLI) | payer OTHER, SELFPAY ==
[2024-07-23 23:47] VITALS: BMI 39.6
== END ==
LOC: WC 11:41
PROVIDERS: PCP Family Medicine; Referring Provider Family Medicine; Visit Provider Surgery
DX: E11.622 Type 2 diabetes mellitus with other skin ulcer (principal); L97.812 Non-pressure chronic ulcer of other part of right lower leg with fat layer exposed; R60.0 Localized edema; I73.9 Peripheral vascular disease, unspecified; I25.10 Atherosclerotic heart disease of native coronary artery without angina pectoris; I50.9 Heart failure, unspecified; Z79.01 Long term (current) use of anticoagulants; E78.5 Hyperlipidemia, unspecified
CPT/HCPCS: 11042; 99213

== ENCOUNTER → 2025-06-09 14:11 | Outpatient (CLI) | payer OTHER, SELFPAY ==
[2024-07-23 23:47] VITALS: BMI 39.6
== END ==
LOC: WC 14:33
PROVIDERS: PCP Family Medicine; Referring Provider Family Medicine; Visit Provider Surgery
DX: E11.628 Type 2 diabetes mellitus with other skin complications (principal); L81.8 Other specified disorders of pigmentation; R60.0 Localized edema; I11.0 Hypertensive heart disease with heart failure; I50.9 Heart failure, unspecified; Z79.01 Long term (current) use of anticoagulants; I25.10 Atherosclerotic heart disease of native coronary artery without angina pectoris; Z98.62 Peripheral vascular angioplasty status; Z99.89 Dependence on other enabling machines and devices; Z91.81 History of falling
CPT/HCPCS: 99212; 99213

== ENCOUNTER 2025-08-18 14:30 | Emergency (ER) | payer OTHER, SELFPAY ==
[2024-07-23 23:47] VITALS: BMI 39.6
[2025-08-18 14:33] VITALS: BP 161/74; PULSE 92; RESP 18; TEMP 36.1; O2SAT 100; BMI 40.2
--- NOTE | 2025-08-18 14:37 | DI.RAD.S_ITS ---
PROCEDURE: XR CHEST 1V
--- NOTE | 2025-08-18 14:37 | DI.RAD.S_ITS ---
PROCEDURE: XR FOREARM RT 2V
--- NOTE | 2025-08-18 14:37 | DI.RAD.S_ITS ---
PROCEDURE: XR ELBOW RT MIN 3V
--- NOTE | 2025-08-18 14:37 | DI.CT.S_ITS ---
PROCEDURE: CT CERVICAL SPINE WO CON
--- NOTE | 2025-08-18 14:37 | DI.RAD.S_ITS ---
PROCEDURE: XR WRIST RT MIN 3V
--- NOTE | 2025-08-18 14:37 | DI.CT.S_ITS ---
PROCEDURE: CT HEAD/BRAIN WO CON
--- NOTE | 2025-08-18 14:49 | ED_ITS ---
HPI - Extremity Injury (Upper)
--- NOTE | 2025-08-18 14:49 | ED.UPPEXIN ---
HPI - Extremity Injury (Upper) <Naman Gamez PA-C - Last Filed: 08/18/25 17:55> General Chief Complaint: Extremity Injury, Upper Stated Complaint: wrist pn right Time Seen by Provider: 08/18/25 14:42 Source: patient Mode of arrival: Ambulatory History of Present Illness HPI narrative: 74-year-old female with past medical history CHF, atrial fibrillation, CAD, hypertension, type 2 diabetes, hyperlipidemia, aortic stenosis, TIA, mild cognitive disorder presents to the ED with right-sided wrist pain status post a ground level fall sustained yesterday. Patient states that she constantly feels lightheaded, felt lightheaded yesterday, was trying to lower herself into the chair, missed and fell on the floor. Patient denies hitting her head or losing consciousness. Patient is on Eliquis. Patient however states that she does not remember very much. She does not remember how her wrist was hurt yesterday. Denies that she was feeling any chest pain or shortness of breath leading to the fall. Patient states that she has frequent urination, says she has a UTI, since she ran out of medications for it. In the ED, patient denies chest pain, shortness of breath, fever, chills, abdominal pain. Related Data Home Medications ?Medication ?Instructions ?Recorded ?Confirmed nystatin 100,000 unit/gram topical 1 applic topical TID rash 01/16/24 05/04/25 cream Previous Rx's ?Medication ?Instructions ?Recorded Parking Permit... #1 ea 09/08/20 pen needle, diabetic 29 gauge x #100 ea 03/09/22 1/2 (Comfort EZ Pen [place]) nitroglycerin 0.4 mg sublingual 0.4 mg sublingual Q5-15M PRN chest 11/07/23 tablet pain #90 tabs apixaban 5 mg tablet (Eliquis) 5 mg PO BID #180 tabs 09/05/24 clopidogrel 75 mg tablet 75 mg PO QAM #90 tabs 01/12/25 metoprolol succinate 50 mg 50 mg PO DAILY #14 tabs 01/20/25 tablet,extended release 24 hr blood sugar diagnostic (True #100 strips 01/30/25 Metrix Glucose Test Strip) atorvastatin 80 mg tablet (Lipitor) 80 mg PO QPM #90 tabs 07/21/25 cefpodoxime 200 mg tablet 200 mg PO Q12H #28 tabs 05/04/25 metformin 500 mg tablet 1,000 mg (2 x 500 mg) PO BID #360 05/04/25 tabs amiodarone 200 mg tablet 200 mg PO BID #180 tabs 05/22/25 semaglutide 1 mg/dose (4 mg/3 mL) 1 mg (0.75 mL) SUBCUT QWEEK #3 mL 07/06/25 subcutaneous pen injector (Ozempic) cefpodoxime 200 mg tablet 200 mg PO Q12H 14 days #28 tabs 08/18/25 Allergies Allergy/AdvReac Type Severity Reaction Status Date / Time Sulfa (Sulfonamide Allergy Mild RASH Verified 05/04/25 13:30 Antibiotics) Review of Systems <Naman Gamez PA-C - Last Filed: 08/18/25 17:55> Constitutional Constitutional: Denies chills, Denies fatigue, Denies fever(s), Denies frequent falls, Denies lethargy and Denies weakness Eyes Eyes: Denies change in vision, Denies eye discharge, Denies irritation and Denies loss of vision ENT Ears, Nose, Mouth, and Throat: Denies change in voice, Denies dizziness, Denies neck pain, Denies sore throat and Denies throat swelling Cardiovascular Cardiovascular: Denies chest pain, Denies irregular heart rhythm, Reports lightheadedness, Denies palpitations, Denies dyspnea, Denies dyspnea on exertion and Denies orthopnea Respiratory Respiratory: Denies cough, Denies dyspnea, Denies dyspnea on exertion and Denies wheezing Gastrointestinal Gastrointestinal: Denies abdominal pain, Denies change in bowel habits, Denies diarrhea, Denies nausea and Denies vomiting Genitourinary Comments: Frequent urination Musculoskeletal Musculoskeletal: Denies neck pain and Denies numbness Comments: Right wrist pain, right elbow pain Integumentary/Breasts Skin/Breast: Denies pruritus, Denies erythema, Denies rash and Denies wounds Neurologic Neurologic: Denies behavioral changes, Denies confusion, Denies dizziness, Denies frequent falls, Denies loss of vision, Denies numbness and Denies weakness Psychiatric Psychiatric: Denies anxiety, Denies behavioral changes, Denies confusion, Denies depression, Denies homicidal ideation and Denies suicidal ideation Endocrine Endocrine: Denies fatigue, Denies flushing and Denies palpitations Hematologic/Lymphatic Hematologic/Lymphatic: Denies easy bruising Allergic/Immunologic Allergic/Immunologic: Denies urticaria, Denies throat swelling and Denies wheezing Patient History <Naman Gamez PA-C - Last Filed: 08/18/25 17:55> Medical History Mild cognitive disorder Acute kidney injury Appendicitis with perforation Vertigo Sedentary lifestyle Stage II pressure ulcer of sacral region (~02/2023) Hyperlipidemia Thyroid nodule Incontinence Breast screening Abnormal mammogram of left breast NSTEMI (non-ST elevated myocardial infarction) (09/2018) Recent heart attack Coronary artery disease Osteopenia (05/20/14) Knee osteoarthritis Hypertension (~2011) Diabetes mellitus (~2011) Rheumatoid arthritis Colon polyps (08/31/14) Surgical History History of bilateral knee replacement (2009) History of colonoscopy with polypectomy (08/31/14) History of left cataract surgery (03/23/15) History of right cataract surgery (04/06/15) Anesthesia History of knee replacement History of knee replacement Status post delivery (12/21/78) Family History Brother Drowning Father Heart disease Mother Diabetes mellitus Sister Bone cancer Sister Bone cancer Social History marital status: household members: none Smoking Status: Former smoker alcohol intake: current substance use type: does not use Smoking Status: Former smoker alcohol intake frequency: holidays/special occasions only Alcohol type: hard liquor Exam <Naman Gamez PA-C - Last Filed: 08/18/25 17:55> Narrative Exam Narrative: Const General:?cooperative, healthy appearing and comfortable [facility] Head:?normal to inspection Ears:?hearing grossly normal bilaterally Nose:?external nose normal Face and sinus:?normal facial exam and sinuses nontender Mouth:?oral mucosae normal Throat:?posterior oropharynx normal Eyes General:?appearance normal, both eyes and all related structures Neck Neck:?normal visual inspection and no lymphadenopathy noted Resp Effort & Inspection:?normal respiratory effort Auscultation:?clear to auscultation bilaterally Cardio Rate:?regular rate Rhythm:?regular rhythm Musculoskeletal Tenderness to palpation of right wrist and right elbow. No bruising, deformities. Strength and sensation intact. Range of motion limited by pain. Neurovascularly intact. Neuro General:?patient alert, patient awake and patient oriented x3 Initial Vital Signs Initial Vital Signs: Vital Signs Temperature 97 F L 08/18/25 14:33 Pulse Rate 92 H 08/18/25 14:33 Respiratory Rate 18 08/18/25 14:33 Blood Pressure 161/74 H 08/18/25 14:33 Pulse Oximetry 100 08/18/25 14:33 Oxygen Delivery Method Room Air 08/18/25 14:33 <Mickie Garibay DO - Last Filed: 08/19/25 08:20> Initial Vital Signs Initial Vital Signs: Vital Signs Temperature 97 F L 08/18/25 14:33 Pulse Rate 92 H 08/18/25 14:33 Respiratory Rate 18 08/18/25 14:33 Blood Pressure 161/74 H 08/18/25 14:33 Pulse Oximetry 100 08/18/25 14:33 Oxygen Delivery Method Room Air 08/18/25 14:33 Course <Naman Gamez PA-C - Last Filed: 08/18/25 17:55> Orders Ordered: Discontinued Medications Acetaminophen (Acetaminophen 325 Mg Tablet) 975 mg PO NOW ONE Stop: 08/18/25 14:40 Last Admin: 08/18/25 15:17 Dose: 975 mg Documented By: LEWIS Ceftriaxone Sodium 1,000 mg/ (Sodium Chloride) 100 mls @ 200 mls/hr IV NOW ONE Stop: 08/18/25 16:24 Last Infusion: 08/18/25 17:21 Dose: Infused Documented By: Admin: 08/18/25 16:41 Dose: 200 mls/hr Documented By: ES Vital Signs Vital signs: Vital Signs - 8 hr 08/18/25 14:33 08/18/25 15:38 08/18/25 15:38 Temperature 97 F L Pulse Rate 92 H 70 Respiratory Rate 18 14 Blood Pressure 161/74 H 122/60 Pulse Oximetry 100 99 Oxygen Delivery Method Room Air 08/18/25 16:06 08/18/25 16:30 08/18/25 17:00 Temperature Pulse Rate 85 76 73 Respiratory Rate 15 18 14 Blood Pressure Pulse Oximetry 99 99 Oxygen Delivery Method 08/18/25 17:30 Temperature Pulse Rate 73 Respiratory Rate 20 Blood Pressure Pulse Oximetry 100 Oxygen Delivery Method <Mickie Garibay DO - Last Filed: 08/19/25 08:20> Orders Ordered: Discontinued Medications Acetaminophen (Acetaminophen 325 Mg Tablet) 975 mg PO NOW ONE Stop: 08/18/25 14:40 Last Admin: 08/18/25 15:17 Dose: 975 mg Documented By: SB Ceftriaxone Sodium 1,000 mg/ (Sodium Chloride) 100 mls @ 200 mls/hr IV NOW ONE Stop: 08/18/25 16:24 Last Infusion: 08/18/25 17:21 Dose: Infused Documented By: Admin: 08/18/25 16:41 Dose: 200 mls/hr Documented By: ES Vital Signs Vital signs: Vital Signs - 8 hr 08/18/25 14:33 08/18/25 15:38 08/18/25 15:38 Temperature 97 F L Pulse Rate 92 H 70 Respiratory Rate 18 14 Blood Pressure 161/74 H 122/60 Pulse Oximetry 100 99 Oxygen Delivery Method Room Air 08/18/25 16:06 08/18/25 16:30 08/18/25 17:00 Temperature Pulse Rate 85 76 73 Respiratory Rate 15 18 14 Blood Pressure Pulse Oximetry 99 99 Oxygen Delivery Method 08/18/25 17:30 Temperature Pulse Rate 73 Respiratory Rate 20 Blood Pressure Pulse Oximetry 100 Oxygen Delivery Method MDM - Extremity Injury (Upper) <Naman Gamez PA-C - Last Filed: 08/18/25 17:55> Lab Data 08/18/25 15:15 08/18/25 15:15 Labs: Lab Results 08/18/25 08/18/25 Range/Units 15:15 16:04 WBC 7.0 (4.5-11.0) X10^3/uL RBC 3.92 L (4.0-5.2) X10^6/uL Hgb 10.6 L (12.0-16.0) g/dL Hct 32.0 L (36-46) % MCV 81.6 (80-100) fL MCH 27.1 (26-34) PG MCHC 33.2 (30-36) % RDW 16.8 H (11.6-14.8) % Plt Count 205 (150-400) X10^3/uL Neut % (Auto) 70.3 (50-75) % Lymph % (Auto) 19.0 L (25-40) % Drew % (Auto) 7.7 (3-14) % Eos % (Auto) 2.2 (2-4) % Baso % (Auto) 0.8 (0-2) % Neut # (Auto) 4900 (1985-2741) /uL Lymph # (Auto) 1300 (4417-5322) /uL Drew # (Auto) 500 (0-900) /uL Eos # (Auto) 200 (0-450) /uL Baso # (Auto) 100 (0-100) /uL PT 12.5 (9.4-12.5) SECONDS INR 1.1 (0.9-1.3) APTT 28 (25.1-36.5) SECONDS Sodium 137 (137-145) mmol/L Potassium 4.8 (3.4-5.1) mmol/L Chloride 103 (98-107) mmol/L Carbon Dioxide 27 (22-32) mmol/L BUN 38 H (7-17) mg/dL Creatinine 1.10 H (0.52-1.04) mg/dL Estimated GFR 53 L (>60) mL/min BUN/Creatinine Ratio 34.5 H (6-22) Glucose 122 H (70-99) mg/dL Calcium 8.6 (8.4-10.2) mg/dL Magnesium 1.9 (1.6-2.3) mg/dL Total Bilirubin 0.4 (0.2-1.3) mg/dL AST 22 (14-36) IU/L ALT 14 (<35) IU/L Alkaline Phosphatase 53 (38-126) U/L Total Creatine Kinase 31 (30-135) U/L Troponin I < 0.012 (0.01-0.034) ng/mL NT-Pro-B Natriuret Pep 620 H (<125) pg/mL Total Protein 7.7 (6.3-8.2) g/dL Albumin 4.0 (3.5-5.0) g/dL Globulin 3.7 (1.7-4.1) g/dL Albumin/Globulin Ratio 1.1 (1.0-2.8) Lipase 152 (23-300) U/L Urine Color Yellow Urine Appearance Cloudy Urine pH 7.0 (4.5-8.0) Ur Specific [place] 1.015 (1.000-1.035) Urine Protein Trace H (Negative) Urine Glucose (UA) Negative (Negative) g/dL Urine Ketones Negative (NEGATIVE) Urine Occult Blood 2+ H (Negative) Urine Nitrate Negative (Negative) Urine Bilirubin Negative (NEGATIVE) Urine Urobilinogen 0.2 (0.2) E.U./dL Ur Leukocyte Esterase 2+ H (NEGATIVE) Urine RBC 0-1/hpf D (0-5/HPF) Urine WBC 10-30/hpf H (0-5/HPF) Ur Squamous Epith Cells 1-5 /hpf (0-5/HPF) Urine Bacteria Many (>30) H (None) Ur Culture Indicated? Specimen cultured Vol Urine Centrifuged 10ml (spun) MDM Narrative Medical decision making narrative: 74-year-old female with past medical history CHF, atrial fibrillation, CAD, hypertension, type 2 diabetes, hyperlipidemia, aortic stenosis, TIA, mild cognitive disorder presents to the ED with right-sided wrist pain status post a ground level fall sustained yesterday. Concern for ACS versus acute exacerbation of CHF versus fracture/dislocation versus musculoskeletal sprain/strain versus dehydration versus electrolyte derangement versus UTI versus other. Will obtain cardiac workup, x-rays, UA. Will give Tylenol for pain. Will reassess. X-rays without acute findings. CT head, CT C-spine without acute findings. Creatinine elevated to 1.1 which is baseline for patient GFR is at 53 which is also baseline. Urine is positive for UTI. Will give IV ceftriaxone, send patient home on p.o. antibiotics. ED return precautions discussed with patient. Patient verbalized understanding. Medical records reviewed: Yes <Mickie Garibay, - Last Filed: 08/19/25 08:20> Lab Data Labs: Lab Results 08/18/25 08/18/25 Range/Units 15:15 16:04 WBC 7.0 (4.5-11.0) X10^3/uL RBC 3.92 L (4.0-5.2) X10^6/uL Hgb 10.6 L (12.0-16.0) g/dL Hct 32.0 L (36-46) % MCV 81.6 (80-100) fL MCH 27.1 (26-34) PG MCHC 33.2 (30-36) % RDW 16.8 H (11.6-14.8) % Plt Count 205 (150-400) X10^3/uL Neut % (Auto) 70.3 (50-75) % Lymph % (Auto) 19.0 L (25-40) % Drew % (Auto) 7.7 (3-14) % Eos % (Auto) 2.2 (2-4) % Baso % (Auto) 0.8 (0-2) % Neut # (Auto) 4900 (8537-0240) /uL Lymph # (Auto) 1300 (4574-7623) /uL Drew # (Auto) 500 (0-900) /uL Eos # (Auto) 200 (0-450) /uL Baso # (Auto) 100 (0-100) /uL PT 12.5 (9.4-12.5) SECONDS INR 1.1 (0.9-1.3) APTT 28 (25.1-36.5) SECONDS Sodium 137 (137-145) mmol/L Potassium 4.8 (3.4-5.1) mmol/L Chloride 103 (98-107) mmol/L Carbon Dioxide 27 (22-32) mmol/L BUN 38 H (7-17) mg/dL Creatinine 1.10 H (0.52-1.04) mg/dL Estimated GFR 53 L (>60) mL/min BUN/Creatinine Ratio 34.5 H (6-22) Glucose 122 H (70-99) mg/dL Calcium 8.6 (8.4-10.2) mg/dL Magnesium 1.9 (1.6-2.3) mg/dL Total Bilirubin 0.4 (0.2-1.3) mg/dL AST 22 (14-36) IU/L ALT 14 (<35) IU/L Alkaline Phosphatase 53 (38-126) U/L Total Creatine Kinase 31 (30-135) U/L Troponin I < 0.012 (0.01-0.034) ng/mL NT-Pro-B Natriuret Pep 620 H (<125) pg/mL Total Protein 7.7 (6.3-8.2) g/dL Albumin 4.0 (3.5-5.0) g/dL Globulin 3.7 (1.7-4.1) g/dL Albumin/Globulin Ratio 1.1 (1.0-2.8) Lipase 152 (23-300) U/L Urine Color Yellow Urine Appearance Cloudy Urine pH 7.0 (4.5-8.0) Ur Specific [place] 1.015 (1.000-1.035) Urine Protein Trace H (Negative) Urine Glucose (UA) Negative (Negative) g/dL Urine Ketones Negative (NEGATIVE) Urine Occult Blood 2+ H (Negative) Urine Nitrate Negative (Negative) Urine Bilirubin Negative (NEGATIVE) Urine Urobilinogen 0.2 (0.2) E.U./dL Ur Leukocyte Esterase 2+ H (NEGATIVE) Urine RBC 0-1/hpf D (0-5/HPF) Urine WBC 10-30/hpf H (0-5/HPF) Ur Squamous Epith Cells 1-5 /hpf (0-5/HPF) Urine Bacteria Many (>30) H (None) Ur Culture Indicated? Specimen cultured Vol Urine Centrifuged 10ml (spun) Discharge Plan Departure Patient Disposition: Home Clinical Impression: UTI (urinary tract infection) Qualifiers: Urinary tract infection type: acute cystitis Hematuria presence: without hematuria Qualified Code(s): N30.00 - Acute cystitis without hematuria Instructions: DI for Urinary Tract Infection (UTI) Activity Restrictions/Additional Instructions: You were evaluated in the emergency department today for lightheadedness and a fall. Your x-rays were normal. It appears that you might have sprained your right wrist from the fall. You may wear a wrist brace that you were fitted with today. The urine was positive for a UTI. You were given a dose of IV antibiotics in the emergency department today. You are being prescribed antibiotic pills to take at home. Please follow-up with your PCP as soon as possible. Return to the ED if you have worsening symptoms. Prescriptions: New cefpodoxime 200 mg tablet 200 mg PO Q12H 14 Days Qty: 28 0RF Rx Instructions: must administer with a meal/food No Action (DME) pen needle, diabetic [Comfort EZ Pen [place]] 29 gauge x 1/2 needle See Rx Instructions .ROUTE .MEDSUPPLY Qty: 100 3RF Rx Instructions: use to check blood glucose 3x per day Eliquis 5 mg tablet 5 mg PO BID Qty: 180 2RF clopidogrel 75 mg tablet 75 mg PO QAM Qty: 90 3RF metoprolol succinate 50 mg tablet extended release 24 hr 50 mg PO DAILY Qty: 14 0RF Rx Instructions: MUST ATTEND 02/03 APPT FOR FURTHER REFILLS (DME) True Metrix Glucose Test Strip Strip See Rx Instructions .ROUTE .COMPLEX Qty: 100 3RF Dose Instruction: USE TO TEST BLOOD SUGAR DAILY Rx Instructions: USE TO TEST BLOOD SUGAR DAILY amiodarone 200 mg tablet 200 mg PO BID Qty: 180 1RF Ozempic 1 mg/dose (4 mg/3 mL) pen injector 1 mg SUBCUT QWEEK Qty: 3 0RF (DME) Parking Permit... See Rx Instructions .Route .MEDSUPPLY Qty: 1 0RF Rx Instructions: Patient meets criteria for permanent parking placard. nitroglycerin 0.4 mg tablet, sublingual 0.4 mg SL Q5-15M PRN (Reason: chest pain) Qty: 90 11RF Patient Comments: patient has prescription but has not taken yet Rx Instructions: until response; do not exceed 3 doses per episode metformin 500 mg tablet 1,000 mg PO BID Qty: 360 3RF Rx Instructions: TAKE TWO TABLETS BY MOUTH TWICE DAILY atorvastatin [Lipitor] 80 mg tablet 80 mg PO QPM Qty: 90 3RF cefpodoxime 200 mg tablet 200 mg PO Q12H Qty: 28 0RF Rx Instructions: must administer with a meal/food nystatin 100,000 unit/gram cream 1 applic topical TID Referrals: Chino Ruggiero MD [Primary Care Provider, Family Practice] Stand Alone Forms: Patient Portal/API ED Sign-out <Mickie Garibay DO - Last Filed: 08/19/25 08:20> Cosign ED Attending Ebenezer Attestation: I was immediately available in the department for consultation.
--- NOTE | 2025-08-18 15:13 | EKG_ITS ---
[facility]
[2025-08-18] MEDS: ACETAMINOPHEN 325 MG TABLET 975 MG PO (15:17)
[2025-08-18 15:27] LABS: Add Manual Diff / Slide Review NO; Hematocrit 32.0 % (36-46); Hemoglobin 10.6 g/dL (12.0-16.0); Lymphocytes Absolute Auto 1300 /uL (1100-4500); Mean Corpuscular HGB Conc 33.2 % (30-36); Mean Corpuscular Hemoglobin 27.1 PG (26-34); Mean Corpuscular Volume 81.6 fL (80-100); Platelet Count 205 X10^3/uL (150-400)
[2025-08-18 15:32] LABS: INR 1.1 (0.9-1.3); Prothrombin Time 12.5 SECONDS (9.4-12.5)
[2025-08-18 15:35] LABS: PTT Partial Thromboplastin Tim 28 SECONDS (25.1-36.5)
[2025-08-18 15:37] LABS: Alanine Aminotransferase 14 IU/L (<35); Albumin 4.0 g/dL (3.5-5.0); Albumin Globulin Ratio 1.1 (1.0-2.8); Alkaline Phosphatase 53 U/L (38-126); Blood Urea Nitrogen 38 mg/dL (7-17); Calcium 8.6 mg/dL (8.4-10.2); Carbon Dioxide 27 mmol/L (22-32); Chloride 103 mmol/L (98-107); Creatine Kinase 31 U/L (30-135); Estimated Glomerular Filt Rate 53 mL/min (>60); Globulin 3.7 g/dL (1.7-4.1); Glucose 122 mg/dL (70-99); HEMOLYSIS 32 (0-50); Lipase 152 U/L (23-300); Magnesium 1.9 mg/dL (1.6-2.3); Potassium 4.8 mmol/L (3.4-5.1); Sodium 137 mmol/L (137-145); Total Protein 7.7 g/dL (6.3-8.2)
[2025-08-18 15:38] VITALS: BP 122/60; PULSE 70; RESP 14; O2SAT 99
[2025-08-18 15:49] LABS: NT-proBNP (BNP-Adult 18+) 620 pg/mL (<125); Troponin I < 0.012 ng/mL (0.01-0.034)
--- NOTE | 2025-08-18 15:55 | PC.NURSE ---
no obvious deformities to shoulder at this time
[2025-08-18 16:06] VITALS: PULSE 85; RESP 15
[2025-08-18 16:13] LABS: Appearance Urine UA CLOUDY; Bilirubin Urine UA NEGATIVE (NEGATIVE); Color Urine UA YELLOW; Glucose Urine UA NEGATIVE (Negative); Ketones Urine UA NEGATIVE (NEGATIVE); Leukocyte Esterase Urine UA 2+ (NEGATIVE); Nitrite Urine UA NEGATIVE (Negative); Occult Blood Urine UA 2+ (Negative); Protein Urine UA TRACE (Negative); Specific Gravity Urine UA 1.015 (1.000-1.035); Urobilinogen Urine UA 0.2 E.U./dL (0.2)
[2025-08-18 16:14] LABS: pH Urine UA 7.0 (4.5-8.0)
[2025-08-18 16:20] LABS: Culture Indicated Urine Specimen Cultured
[2025-08-18 16:30] VITALS: PULSE 76; RESP 18; O2SAT 99
[2025-08-18 17:00] VITALS: PULSE 73; RESP 14; O2SAT 99
[2025-08-18 17:30] VITALS: PULSE 73; RESP 20; O2SAT 100
== END 2025-08-18 17:47 | disposition home or self-care (01) ==
PROVIDERS: Emergency Provider Student in an Organized Health Care Education/Training Program; PCP Family Medicine
DX: N30.00 Acute cystitis without hematuria (principal); S69.91XA Unspecified injury of right wrist, hand and finger(s), initial encounter; W18.30XA Fall on same level, unspecified, initial encounter; R42 Dizziness and giddiness; I50.9 Heart failure, unspecified; Z86.79 Personal history of other diseases of the circulatory system; Z86.73 Personal history of transient ischemic attack (TIA), and cerebral infarction without residual deficits; E11.9 Type 2 diabetes mellitus without complications; I48.91 Unspecified atrial fibrillation; Z79.01 Long term (current) use of anticoagulants
CPT/HCPCS: 36415; 70450; 71045; 72125; 73080; 73090; 73110; 80053; 81001; 82550; 83690; 83735; 83880; 84484; 85025; 85610; 85730; 87077; 87086; 87186; 93005; 96365; 99284; J0696; J7050